=== PATIENT | female | born 1950 | race Caucasian/White ===

== ENCOUNTER 2017-02-04 22:51 | Inpatient (IN) | payer OTHER ==
[~2017-02-04] VITALS: Ht 167.6 cm; Wt 92.0 kg
[~2017-02-04 22:51] MED LIST: ACET-1311 PO; ALBU1AER9 INH; AMIT25TA9 PO; ASPCH81X PO; ATEN-173 PO; BISA10SU3 PR; BUDE0.5S INH; BUSP5TAB59 PO; CLOT10TR2 MT; CLR10 PO; DOCU100C31 PO; ERGO1CAP35 PO; FLUT0.0529 NAE; GABA-113 PO; LACT10SO30 PO; LEVO50TA PO; LORA-741 PO; NTRGSL/4 UT; PANT40TA PO; PARO1TAB29 PO; POTA-74 PO; SALM50AE2 INH; SENN1TAB66 PO; SPRIN/30 INH; SUCR5SUS PO
[2017-02-04] MEDS ORDERED: ALBUT/IPRATROP 3MG/0.5MG NEB 3 ML VIAL INH STA (23:11)
[2017-02-04 23:28] LABS: HEMATOCRIT 40.7 % (37-47); MEAN CELL VOLUME 92.7 fL (80-100); MEAN CORPUSCULAR HGB CONC 33.4 g/dl (32-36); MEAN PLATELET VOLUME 10.1 fL (7.4-10.4); PLATELET COUNT 409 K/uL (130-400); RED BLOOD COUNT 4.39 M/uL (4.2-5.4); WHITE BLOOD COUNT 24.29 K/uL (4.8-10.8)
[2017-02-04 23:40] LABS: INR 1.2 (0.9-1.1); PARTIAL THROMBOPLASTIN RATIO 1.1; PROTHROMBIN TIME (PATIENT) 12.4 SECONDS (9.0-12.0)
[2017-02-04] MEDS ORDERED: PIPERACILLIN/TAZOBACTAM 4.5 GM/100ML D5W IV STA (23:46)
[2017-02-05] VITALS (10 sets, daily range): BP systolic 94–107; BP diastolic 63–70; PULSE 83–95; TEMP 36.5–36.8; O2SAT 94–96; BMI 33.0
[2017-02-05 00:01] LABS: ALT/SGPT 47 U/L (12-78); AST/SGOT 30 U/L (15-37); BLOOD UREA NITROGEN 11 mg/dl (7-18); BUN/CREATININE RATIO 8.1 (10-20); CALCIUM 8.6 mg/dl (8.5-10.1); CARBON DIOXIDE 22 mmol/L (21-32); CHLORIDE 104 mmol/L (98-107); GLUCOSE 141 mg/dl (70-99); POTASSIUM 4.6 mmol/L (3.5-5.1); SODIUM 138 mmol/L (136-145)
[2017-02-05 00:02] LABS: BASO % 0.1 %; BASO ABS # 0.03 K/uL (0-0.2); COMPLETE YES; EOS % 0.7 %; IG% 0.5 %; LYMPH % 12.4 %; LYMPH ABS # 3.02 K/uL (1.2-3.4); MONO % 13.8 %; NEUT % 72.5 %
[2017-02-05 00:04] LABS: ALB/GLOB RATIO 0.8 (0.9-2); ALKALINE PHOSPHATASE 133 U/L (45-117)
[2017-02-05] MEDS ORDERED: SODIUM CHLORIDE 0.9% 1000ML 1,000 ML IV SCH (01:00)
--- NOTE | 2017-02-05 01:20 | EMERGENCY ROOM VISIT NOTE ---
History Report prepared by Jalen: Nolan Jo Under the Supervision of: Dr. Juan Jose Mendoza M.D. First contact with patient: 23:03 Chief Complaint: SHORTNESS OF BREATH Stated Complaint: SOB, FEVER, COUGH History of Present Illness The patient is a 66 year old female who presents to the Emergency Room with complaints of constant shortness of breath for the past several days. The patient complains of coughs, wheezing, nausea, fevers, sorethroat, and a clogged nose. She reports that the highest fever she had was 102.8 degrees. The patient notes that she has a history of COPD, and she has been using her nebulizer. She states that she uses 2L of oxygen at bed time. The patient denies vomiting, diarrhea, and chest pain. She notes she was given a nebulizer treatment and IV steroids in the ambulance. Source of History: patient Onset: prior to arrival Position: other (global) Quality: other (shortness of breath) Timing: constant Associated Symptoms: + fevers, + sorethroat, + cough, + nausea, No chest pain, No vomiting, No diarrhea Note: Associated Symptoms: wheezing and a clogged nose Review of Systems See HPI for pertinent positives & negatives. A total of 10 systems reviewed and were otherwise negative. Past Medical & Surgical Medical Problems: (1) Anxiety (2) COPD (chronic obstructive pulmonary disease) (3) Depression (4) Migraine Surgical Problems: (1) H/O tubal ligation Social History Smoking Status: Current Every Day Smoker Marital Status: Housing Status: other Occupation Status: retired Current/Historical Medications Scheduled Albuterol (Proair Hfa), 2 PUFFS INH QID Amitriptyline Hcl (Elavil), 50 MG PO HS Aspirin (Aspirin Chewable), 81 MG PEG DAILY Atenolol (Tenormin), 25 MG PO BID Budesonide Soln (Pulmicort Respules 0.5MG/2ML), 2 ML INH Q12HR Buspirone Hcl (Buspirone Hcl), 30 MG PO BID Docusate Sodium (Docusate Sodium), 100 MG PO BID Ergocalciferol (Vitamin D Cap), 50,000 INTER.UNIT PO WK Fluticasone Propionate (Nasal) (Flonase), 1 SPRAY MARIAM BID Gabapentin (Neurontin), 300 MG PO TID Levothyroxine Sodium (Synthroid), 50 MCG PO DAILY Loratadine (Claritin), 10 MG PO DAILY Pantoprazole (Protonix), 40 MG PO QAM Paroxetine (Paxil), 40 MG PO DAILY Potassium Chloride (Potassium Chloride Er), 10 MEQ PO BID Salmeterol Xinafoate Inh (Serevent Diskus Inh), 1 PUFF INH Q12 Sucralfate (Sucralfate), 1 GM PO Q6H Tiotropium [place] (Spiriva Hand[place]er), 1 CAP INH DAILY Scheduled PRN Acetaminophen (Tylenol), 650 MG PO Q4H PRN for Mild Pain Bisacodyl (Dulcolax), 1 SUPP WI UD PRN for No Bowel Movement/Constipation Clotrimazole (Mycelex), 10 MG MT 5XD PRN Lactulose (Encephalopathy) (Lactulose), 30 ML PO Q24H UD PRN for No Bowel Movement/Constipation Lorazepam (Ativan), 0.25 MG PO Q6H PRN for Anxiety or Tremors Nitroglycerin (Nitrostat), 0.4 MG UT UD PRN for Chest Pain Sennosides-Docusate Sodium (Senna/Docusate Sodium), 1 TABLET PO Q24H PRN for Constipation Allergies Coded Allergies: Quinolones (Verified Allergy, Intermediate, LEVAQUIN, 07/09/11) LEVAQUIN ALLERGY Codeine (Verified Allergy, Unknown, UNKNOWN, 05/30/12) PER H&P, PATIENT IS ON VICODIN PRN AT HOME. Physical Exam Vital Signs Date Time Temp Pulse Resp B/P (MAP) Pulse Ox O2 Delivery O2 Flow Rate FiO2 02/05/17 00:49 111 16 97/60 94 Nasal Cannula 2.0 02/05/17 00:09 113 24 98/74 96 Nasal Cannula 2.0 02/05/17 00:00 114 02/04/17 23:51 96 Nasal Cannula 02/04/17 23:05 Nasal Cannula 2.0 02/04/17 23:05 36.9 123 28 111/73 95 Nasal Cannula 2.0 Physical Exam Constitutional: Vital signs reviewed. Eyes: Pupils are equal round reactive to light. Conjunctiva are noninjected. ENT: Pharynx is clear without erythema or exudate. No thrush. Mucous membranes are moist. Neck supple without meningeal signs. Respiratory: Breath sounds are equal bilaterally. Diffuse bilateral expiratory wheezing. Cardiovascular: Tachycardic rate of 112 and regular rhythm. No rubs or gallops. GI: Soft, nondistended and nontender. Bowel sounds are present. Musculoskeletal: No peripheral edema. No lower extremity tenderness. Integumentary: No cyanosis. Neurological: The patient is awake and alert. No focal deficits. Psychiatric: Normal affect. Medical Decision & Procedures ER Provider Diagnostic Interpretation: X-ray results as stated below per interpretation by me: Chest X-ray: showed left retrocardiac infiltrate, increased marking at the right face Laboratory Results 02/04/17 23:00 Red Blood Count 4.39, Mean Corpuscular Volume 92.7, Mean Corpuscular Hemoglobin 31.0, Mean Corpuscular Hemoglobin Concent 33.4, Mean Platelet Volume 10.1, Neutrophils (%) (Auto) 72.5, Lymphocytes (%) (Auto) 12.4, Monocytes (%) (Auto) 13.8, Eosinophils (%) (Auto) 0.7, Basophils (%) (Auto) 0.1, Neutrophils # (Auto ) 17.60, Lymphocytes # (Auto) 3.02, Monocytes # (Auto) 3.34, Eosinophils # (Auto ) 0.18, Basophils # (Auto) 0.03 02/04/17 23:00 Test 02/04/17 23:00 02/05/17 00:48 White Blood Count 24.29 K/uL (4.8-10.8) Red Blood Count 4.39 M/uL (4.2-5.4) Hemoglobin 13.6 g/dL (12.0-16.0) Hematocrit 40.7 % (37-47) Mean Corpuscular Volume 92.7 fL (80-100) Mean Corpuscular Hemoglobin 31.0 pg (25-34) Mean Corpuscular Hemoglobin Concent 33.4 g/dl (32-36) Platelet Count 409 K/uL (130-400) Mean Platelet Volume 10.1 fL (7.4-10.4) Neutrophils (%) (Auto) 72.5 % Lymphocytes (%) (Auto) 12.4 % Monocytes (%) (Auto) 13.8 % Eosinophils (%) (Auto) 0.7 % Basophils (%) (Auto) 0.1 % Neutrophils # (Auto) 17.60 K/uL (1.4-6.5) Lymphocytes # (Auto) 3.02 K/uL (1.2-3.4) Monocytes # (Auto) 3.34 K/uL (0.11-0.59) Eosinophils # (Auto) 0.18 K/uL (0-0.5) Basophils # (Auto) 0.03 K/uL (0-0.2) RDW Standard Deviation 47.7 fL (36.4-46.3) RDW Coefficient of Variation 14.0 % (11.5-14.5) Immature Granulocyte % (Auto) 0.5 % Immature Granulocyte # (Auto) 0.12 K/uL (0.00-0.02) Red Blood Cell Morphology Unremarkable Prothrombin Time 12.4 SECONDS (9.0-12.0) Prothromb Time International Ratio 1.2 (0.9-1.1) Activated Partial Thromboplast Time 29.3 SECONDS (21.0-31.0) Partial Thromboplastin Ratio 1.1 Anion Gap 12.0 mmol/L (3-11) Est Creatinine Clear Calc Drug Dose 46.0 ml/min Estimated GFR () 45.6 Estimated GFR (Non- 39.3 BUN/Creatinine Ratio 8.1 (10-20) Calcium Level 8.6 mg/dl (8.5-10.1) Magnesium Level 2.0 mg/dl (1.8-2.4) Total Bilirubin 1.1 mg/dl (0.2-1) Aspartate Amino Transf (AST/SGOT) 30 U/L (15-37) Alanine Aminotransferase (ALT/SGPT) 47 U/L (12-78) Alkaline Phosphatase 133 U/L (45-117) Troponin I < 0.015 ng/ml (0-0.045) Total Protein 7.5 gm/dl (6.4-8.2) Albumin 3.4 gm/dl (3.4-5.0) Globulin 4.1 gm/dl (2.5-4.0) Albumin/Globulin Ratio 0.8 (0.9-2) Laboratory results as reviewed by me. Medications Administered Medications (Trade) Dose Ordered Sig/Magdalene Route Start Time Stop Time Status Last Admin Dose Admin Albuterol/ Ipratropium (Duoneb) 3 ml NOW STAT INH 02/04/17 23:11 02/04/17 23:12 DC 02/04/17 23:19 3 ML Piperacillin Sod/ Tazobactam Sod (Zosyn Iv) 4.5 gm NOW STAT IV 02/04/17 23:46 02/04/17 23:47 DC 02/05/17 00:06 4.5 GM ECG Indication: SOB/dyspnea Rate (beats per minute): 111 Rhythm: other (narrow complex) Findings: no ectopy, other (Limited interpretation due to artifact) ED Course 230: The patient was evaluated in room A03. A complete history and physical exam was performed. 2310: Ordered Duoneb 3ml INH 2342: I reevaluated the patient, and discussed her test results. Her wheezing has improved. 2345: Ordered Zosyn Iv 4.5gm IV 0019: I discussed the patient's case with Dr. Reid, [facility]ist. The patient will be evaluated for further treatment. Medical Decision This is a 66-year-old female who presents with shortness of breath, fever and cough. Differential diagnoses include sepsis, pneumonia, bronchitis, COPD exacerbation, pleural effusion. I did perform a limited focused review of portions of the patient's old chart on the electronic medical record. The patient has had no recent pertinent visits to this hospital. Medication Reconciliation: I attest that I have personally reviewed the patient' s current medication list. Blood Pressure Screening: Patient was found to have normal blood pressure on screening and does not require follow-up. I did evaluate the patient as noted above. Blood cultures were obtained. IV access was established. The patient was placed on a continuous hospital monitor. I did order and personally review the patient's 12-lead EKG and chest x-ray as described above. Per my interpretation she appears to have a left retrocardiac infiltrate. I did order and review the patient's blood work as noted in the electronic medical record. Her white blood cell count was over 24, 000. I did treat her with a DuoNeb. She was also given Zosyn IV. I did reassess the patient. She is feeling better and her wheezing is improved. I did recommend hospitalization for further care and evaluation. I did discuss the case with the hospitalist and case hardener. Consults Time Called: [phone] Consulting Physician: Isauro Marcus Hospitalist Returned Call: [phone] I discussed the patient's case with Isauro Marcus Hospitalist. The patient will be evaluated for further treatment. Impression Primary Impression: Left lower lobe pneumonia Additional Impressions: COPD exacerbation Leukocytosis Scribe Attestation The scribe's documentation has been prepared under my direct and personally reviewed by me in its entirety. I confirm that the note above accurately reflects all work, treatment, procedures, and medical decision making performed by me. Departure Information Dispostion Being Evaluated By Hospitalist Referrals Magalie Vinson M.D. (MEDICAL) (PCP) Patient Instructions My [facility] Problem Qualifiers Primary Impression: Left lower lobe pneumonia Pneumonia type: due to unspecified organism Qualified Codes: J18.1 - Lobar pneumonia, unspecified organism Additional Impressions: Leukocytosis Leukocytosis type: unspecified Qualified Codes: D72.829 - Elevated white blood cell count, unspecified
[2017-02-05 01:53] LABS: ALLEN TEST POS (POS); ARTERIAL BLD GAS O2 SATURATION 93.8 % (90-95); ARTERIAL BLOOD GAS BASE EXCESS -2.6 mEq/L (-9-1.8); ARTERIAL BLOOD GAS HCO3 21 mmol/L (19-24); ARTERIAL BLOOD GAS PO2 70 mm/Hg (80-95); ARTERIAL BLOOD GAS pH 7.43 (7.35-7.45); O2 ADMINISTRATION 2L
[2017-02-05] MEDS ORDERED: LISI-461 PO (01:53)
[2017-02-05] MEDS ORDERED: TRAM-10 PO (01:55)
[2017-02-05] MEDS ORDERED: ASTN NAE (01:58)
[2017-02-05] MEDS ORDERED: ROPI0.25 PO (01:59)
[2017-02-05] MEDS ORDERED: VAREPAK PO (02:01)
[2017-02-05] MEDS ORDERED: MAGIC1 PO (02:02)
[2017-02-05] MEDS ORDERED: AMOX875T PO (02:04)
[2017-02-05] MEDS ORDERED: CHOL1CAP95 PO (02:07)
[2017-02-05] MEDS ORDERED: FURO-85 PO (02:09)
[2017-02-05] MEDS ORDERED: UMEC1AER INH (02:12)
[2017-02-05] MEDS ORDERED: VNTHFA/IN INH (02:13)
[2017-02-05] MEDS ORDERED: PRED10TA PO (02:15)
[2017-02-05] MEDS ORDERED: FLVHFA44 INH (02:19)
[2017-02-05] MEDS ORDERED: GUAI1TAB PO (02:22)
[2017-02-05] MEDS ORDERED: BUSP30TA2 PO (02:23)
[2017-02-05] MEDS ORDERED: LEVO-371 PO (02:25)
[2017-02-05] MEDS ORDERED: LEVO75TA5 PO (02:26)
[2017-02-05] MEDS ORDERED: ALBINS/ INH (02:29)
[2017-02-05] MEDS ORDERED: DIPH1TAB PO (02:30)
[2017-02-05] MEDS ORDERED: ONDANSETRON INJ 2 MG/ML 2 ML VIAL IV PRN (03:15)
[2017-02-05] MEDS ORDERED: LEVALBUTEROL/IPRATROPIUM NEB INH PRN (03:15)
[2017-02-05] MEDS ORDERED: DOCUSATE SODIUM/SENNA 50/8.6MG TAB PO PRN (03:15)
[2017-02-05] MEDS ORDERED: NITROGLYCERIN 0.4 MG SL PER TAB CHARGE UT PRN (03:15)
[2017-02-05] MEDS ORDERED: DOXYCYCLINE IV 100 MG in DEXTROSE 5% 100ML 100 ML IV STA (03:39)
[2017-02-05] MEDS ORDERED: LEVALBUTEROL 1.25MG/0.5ML NEB INH PRN (03:45)
[2017-02-05] MEDS ORDERED: IPRATROPIUM BROMIDE NEB SOLN 0.02% 2.5 ML VIAL INH PRN (03:45)
[2017-02-05] MEDS ORDERED: INSULIN GLARGINE SOLOSTAR 100 UNITS/ML 3 ML PEN SC STA (03:56)
[2017-02-05] MEDS ORDERED: METHYLPREDNISOLONE IV 40 MG in SYRINGE 0 ML IV STA (03:57)
[2017-02-05] MEDS ORDERED: SODIUM CHLORIDE 0.9% 1000ML 1,000 ML IV ONE (04:00)
[2017-02-05] MEDS ORDERED: LANTUS PER UNIT CHARGE SQ STA (04:12)
--- NOTE | 2017-02-05 06:05 | HISTORY & PHYSICAL EXAMINATION ---
DATE OF ADMISSION: 02/05/2017 PRIMARY CARE PHYSICIAN: Dr. Vinson. CHIEF COMPLAINT: Shortness of breath, cough. HISTORY OF PRESENT ILLNESS: Hx obtained from px and records. Medical history is significant for chronic respiratory failure secondary to COPD on home O2, tobacco abuse, chronic systolic/diastolic heart failure (EF of 55% TTE 2016). hypothyroidism, hypertension. Recent confinement 2013 for respiratory failure secondary to COPD exacerbation. Px subsequently intubated. A 2D echo at that time showed EF of 15-20%. Px seen by Cardiology. Takotsubo vs ACS. No cardiac catheterization done at that time. A few weeks ago, the patient noted cough symptoms, shortness of breath resolved with intake of Augmentin, prednisone home rescue kit. A few days ago, the patient noted cough symptoms, nasal congestion initially clear later white, later yellow-green. Fever 102 at home. No chest pain, increasing shortness of breath. Denies aspiration. Denies weight gain. At the Emergency Room, the patient received Zosyn and breathing treatment. MEDICAL HISTORY: As above. SURGERIES: She has had sinus surgery. tubal ligation, nasal septum surgery. HOME MEDICATIONS: Include vitamin D, Mycelex Troches, Magic Swizzle, vitamin D, Flonase, Lasix, Flovent, Neurontin, lactulose, levothyroxine, Ativan, Zestril, Claritin, Nitrostat, potassium chloride, Protonix, Paxil, Requip, Senokot S, sucralfate, Spiriva, tramadol, Ellipta, Chantix. ALLERGIES: TO CODEINE, QUINOLONE. FAMILY HISTORY: Heart disease. PERSONAL AND SOCIAL HISTORY. No chronic intake of alcoholic beverages; down to 7 cigarettes in the last 2 weeks. On disability. REVIEW OF SYSTEMS: As per HPI, all other ROS negative. PHYSICAL EXAMINATION: VITAL SIGNS: Blood pressure is 109/60, pulse rate 105, RR 24, temperature 36.9, sats 95 on 2 liters. GENERAL: Noted to be slightly anxious, tremulous, some respiratory distress. SKIN: Normal color. HEENT: [place] palpebral conjunctivae. Dry mucosa. nasal cannula noted NECK: No JVD. supple CHEST: Decreased breath sounds. HEART: Tachycardic. ABDOMEN: Soft. NT EXTREMITIES: No edema. no tenderness NEUROLOGIC: No gross focality except for rest tremors. LABORATORY DATA: Hemoglobin 13.6, hematocrit 40, white cell count 20, platelets are 409. Sodium 138, potassium 4.6, chloride 104, creatinine 1.4, glucose 141. ABG pH 7.42, pCO2 32, pO2 70 on 2 liters. IMAGING DATA: Chest x-ray as per my interpretation, atelectasis, COPD. EKG as per my interpretation rate 115, sinus tachycardia, artifact, ST depression on the lateral leads. ASSESSMENT: 1. Acute on chronic hypoxemic resp failure secondary to chronic obstructive pulmonary disease exacerbation secondary to atypical pneumonia/complicated bronchitis. 2. Sepsis secondary to above. 3. Acute renal failure secondary to illness. 4. Chronic diastolic heart failure. The patient is on the dry side. 5. Ongoing tobacco abuse, doing well on Chantix. 6. hyperglycemia possibly from recent home steroid course ro DM PLAN: GMF supplemental O2 Cultures, Doxycycline nebs, steroid course May need Pulmo opinion if without improvement with initial intervention. baseline UA, monitor creatinine response to IVF Hold home ACEI until creatinine at baseline. Check hemoglobin A1c. DVT prophylaxis, Heparin subQ. Full code. MTDD
[2017-02-05] MEDS ORDERED: GLUCAGON FOR INJ 1 MG VIAL SQ PRN (06:15)
[2017-02-05] MEDS ORDERED: DEXTROSE 50% 50 ML SYR IV PRN (06:15)
[2017-02-05] MEDS ORDERED: GLUCOSE 40% GEL 15 GM TUBE PO PRN (06:15)
[2017-02-05] MEDS ORDERED: GLUCOSE 10 TABS/TUBE PO PRN (06:15)
[2017-02-05] MEDS ORDERED: INSULIN ASPART 100 UNITS/ML 3 ML PEN SC ONE (06:15)
--- NOTE | 2017-02-05 06:31 | DIAGNOSTIC IMAGING REPORT ---
CHEST ONE VIEW PORTABLE CLINICAL HISTORY: Sepsis COMPARISON STUDY: 10/03/2013 FINDINGS: Tracheostomy tube and right-sided PICC catheter have been removed. There is pulmonary emphysema. There is no focal pulmonary consolidation. There are no pleural effusions. There is no failure. There are scattered chronic interstitial densities.[ IMPRESSION: Emphysema. No acute findings. Electronically signed by: Dominick Barrera M.D. 02/05/2017 6:29 AM Dictated Date/Time: 02/05/2017 6:29 AM
[2017-02-05] MEDS: LEVOTHYROXINE 75 MCG TAB PO SCH (06:34)
[2017-02-05] MEDS: SUCRALFATE 1 GM/10 ML UDC PO SCH ×3 (06:34→18:09)
[2017-02-05] MEDS: HEPARIN SOD 5000 UNIT/0.5 ML CARP SQ SCH ×3 (06:38→21:28)
[2017-02-05 06:59] LABS: BASO % 0.1 %; BASO ABS # 0.01 K/uL (0-0.2); COMPLETE YES; EOS % 0.1 %; HEMATOCRIT 37.7 % (37-47); IG% 0.3 %; LYMPH % 6.9 %; LYMPH ABS # 1.22 K/uL (1.2-3.4); MEAN CELL VOLUME 91.1 fL (80-100); MEAN CORPUSCULAR HGB CONC 32.9 g/dl (32-36); MEAN PLATELET VOLUME 9.1 fL (7.4-10.4); MONO % 3.4 %; NEUT % 89.2 %; PLATELET COUNT 357 K/uL (130-400); RED BLOOD COUNT 4.14 M/uL (4.2-5.4); WHITE BLOOD COUNT 17.81 K/uL (4.8-10.8)
[2017-02-05] MEDS: LEVALBUTEROL 1.25MG/0.5ML NEB INH SCH ×3 (07:11→19:01)
[2017-02-05] MEDS: IPRATROPIUM BROMIDE NEB SOLN 0.02% 2.5 ML VIAL INH SCH ×3 (07:11→19:01)
[2017-02-05 07:38] LABS: BUN/CREATININE RATIO 10.3 (10-20); CALCIUM 8.7 mg/dl (8.5-10.1); CREATININE 1.5 mg/dl (0.60-1.20); POTASSIUM 4.2 mmol/L (3.5-5.1)
[2017-02-05] MEDS: XYZAL~ORDER AWAITING ACTION SCH ×3 (07:39→23:29)
[2017-02-05] MEDS ORDERED: PNEUMOCOCCAL POLYSACCHARIDES 25 MCG/0.5 ML VIAL/SYR IM. ONE (08:00)
[2017-02-05] MEDS ORDERED: PNEUMOCOCCAL ADMINISTRATION CHARGE ONE (08:00)
[2017-02-05 08:39] LABS: ESTIMATED AVERAGE GLUCOSE 163 mg/dl; HA1C FLAG Normal (Normal)
[2017-02-05] MEDS ORDERED: LEVALBUTEROL/IPRATROPIUM NEB INH SCH (09:00)
[2017-02-05] MEDS ORDERED: ENOXAPARIN 40 MG/0.4 ML SYR SQ SCH (09:00)
[2017-02-05] MEDS: VARENICLINE (CHANTIX) 1 MG TAB PO SCH ×2 (09:02→21:32)
[2017-02-05] MEDS: PANTOprazole SOD 40 MG TAB PO SCH (09:05)
[2017-02-05] MEDS: ASPIRIN 81 MG ECTAB PO SCH (09:06)
[2017-02-05] MEDS: PAROXETINE 20 MG TAB PO SCH (09:06)
[2017-02-05] MEDS: BusPIRone 15 MG TAB PO SCH ×2 (09:06→21:31)
[2017-02-05] MEDS: GABAPENTIN 300 MG CAP PO SCH ×3 (09:07→21:32)
[2017-02-05] MEDS: INSULIN ASPART 100 UNITS/ML 3 ML PEN SC SCH ×3 (11:00→21:28)
[2017-02-05 11:28] LABS: URINE APPEARANCE CLEAR (CLEAR); URINE BILIRUBIN NEG (NEG); URINE COLOR DK YELLOW; URINE NITRITE NEG (NEG); URINE PH 5.5 (4.5-7.5); UROBILINOGEN NEG (NEG); ZZUR CULT IF INDIC CLEAN CATCH NO
[2017-02-05 11:30] LABS: MANUAL MICROSCOPIC REQUIRED? NO; REVIEW REQ? NO
--- NOTE | 2017-02-05 11:51 | Progress Note ---
Medicine Progress Note Date & Time of Visit: Feb 05, 2017 at 11:35. Subjective 66 yoF smoker with COPD presented with worsening cough, SOB and sputum production with color change in the last 2-3 days. Found to have an atypical pneumonia. Improved since started on treatment yesterday. Tolerating PO, breathing treatments causing coughing. Still on oxygen when requires oxygen only at night typically. She has recently restarted Chantix and is doing well on this but says it causes nausea. She reports chronic thrush and dry mouth, and states that she has had at least 3 thrush episodes in the past month. She typically uses Clotrimazole trouches. She does wear dentures. Reports some persistent chills, afebrile overnight. Denies vomiting, chest pain or other symptoms. Objective Last 8 Hrs Date Time Temp Pulse Resp B/P (MAP) Pulse Ox O2 Delivery O2 Flow Rate FiO2 02/05/17 09:03 85 16 106/65 (79) 02/05/17 08:53 96 Nasal Cannula 02/05/17 07:24 36.5 84 16 94/63 (73) 96 Room Air 02/05/17 07:10 83 16 Nasal Cannula 96.0 02/05/17 03:58 36.8 95 25 107/66 95 Nasal Cannula 2.0 Physical Exam: GEN: WNWD, in no acute distress, alert and appropriate HEENT: NC/AT, pupils are equal and round bilaterally, normal sclerae, mucous membranes are dry, some whitish material noted on tongue, dentures in place, pharynx is otherwise not acute. CARDIO: reg rate, S1/2 heard without m/g/r, no LE swelling or edema LUNGS: CTA bilaterally, no crackles, rales or wheezes, good diaphragmatic excursion ABD: soft, non-tender, non-distended, no rebound or guarding, +BS EXTREMITY: RP and DP palpable 2+ bilat, extremities are warm and well-perfused NEURO: CN 2-12 grossly intact, no gross focal deficits. MUSC: ambulatory SKIN: warm and dry Laboratory Results: 02/05/17 06:26 Red Blood Count 4.14, Mean Corpuscular Volume 91.1, Mean Corpuscular Hemoglobin 30.0, Mean Corpuscular Hemoglobin Concent 32.9, Mean Platelet Volume 9.1, Neutrophils (%) (Auto) 89.2, Lymphocytes (%) (Auto) 6.9, Monocytes (%) (Auto) 3.4, Eosinophils (%) (Auto) 0.1, Basophils (%) (Auto) 0.1, Neutrophils # (Auto) 15.91, Lymphocytes # (Auto) 1.22, Monocytes # (Auto) 0.60, Eosinophils # (Auto) 0.01, Basophils # (Auto) 0.01 02/05/17 06:26 Test 02/04/17 23:00 02/04/17 23:45 02/05/17 01:40 02/05/17 06:26 Red Blood Cell Morphology Unremarkable Prothrombin Time 12.4 SECONDS (9.0-12.0) Prothromb Time International Ratio 1.2 (0.9-1.1) Activated Partial Thromboplast Time 29.3 SECONDS (21.0-31.0) Partial Thromboplastin Ratio 1.1 Magnesium Level 2.0 mg/dl (1.8-2.4) Total Bilirubin 1.1 mg/dl (0.2-1) Aspartate Amino Transf (AST/SGOT) 30 U/L (15-37) Alanine Aminotransferase (ALT/SGPT) 47 U/L (12-78) Alkaline Phosphatase 133 U/L (45-117) Troponin I < 0.015 ng/ml (0-0.045) Total Protein 7.5 gm/dl (6.4-8.2) Albumin 3.4 gm/dl (3.4-5.0) Globulin 4.1 gm/dl (2.5-4.0) Albumin/Globulin Ratio 0.8 (0.9-2) Thyroid Stimulating Hormone (TSH) 4.190 uIu/ml (0.300-4.500) Bedside Lactic Acid Venous 2.66 mmol/L (0.90-1.70) Arterial Blood pH 7.43 (7.35-7.45) Arterial Blood Partial Pressure CO2 32 mmHg (35-46) Arterial Blood Partial Pressure O2 70 mm/Hg (80-95) Arterial Blood HCO3 21 mmol/L (19-24) Arterial Blood Oxygen Saturation 93.8 % (90-95) Arterial Blood Base Excess -2.6 mEq/L (-9-1.8) Arterial Blood Gas Delivery 2L Franky Test POS (POS) Lactic Acid Level 1.8 mmol/L (0.4-2.0) White Blood Count 17.81 K/uL (4.8-10.8) Red Blood Count 4.14 M/uL (4.2-5.4) Hemoglobin 12.4 g/dL (12.0-16.0) Hematocrit 37.7 % (37-47) Mean Corpuscular Volume 91.1 fL (80-100) Mean Corpuscular Hemoglobin 30.0 pg (25-34) Mean Corpuscular Hemoglobin Concent 32.9 g/dl (32-36) Platelet Count 357 K/uL (130-400) Mean Platelet Volume 9.1 fL (7.4-10.4) Neutrophils (%) (Auto) 89.2 % Lymphocytes (%) (Auto) 6.9 % Monocytes (%) (Auto) 3.4 % Eosinophils (%) (Auto) 0.1 % Basophils (%) (Auto) 0.1 % Neutrophils # (Auto) 15.91 K/uL (1.4-6.5) Lymphocytes # (Auto) 1.22 K/uL (1.2-3.4) Monocytes # (Auto) 0.60 K/uL (0.11-0.59) Eosinophils # (Auto) 0.01 K/uL (0-0.5) Basophils # (Auto) 0.01 K/uL (0-0.2) RDW Standard Deviation 46.4 fL (36.4-46.3) RDW Coefficient of Variation 13.9 % (11.5-14.5) Immature Granulocyte % (Auto) 0.3 % Immature Granulocyte # (Auto) 0.06 K/uL (0.00-0.02) Anion Gap 10.0 mmol/L (3-11) Est Creatinine Clear Calc Drug Dose 42.9 ml/min Estimated GFR () 41.9 Estimated GFR (Non- 36.2 BUN/Creatinine Ratio 10.3 (10-20) Estimated Average Glucose 163 mg/dl Hemoglobin A1c 7.3 % (4.5-5.6) Calcium Level 8.7 mg/dl (8.5-10.1) Hepatitis C Antibody Screen NEG (NEG) Test 02/05/17 11:04 02/05/17 11:05 Bedside Glucose 175 mg/dl (70-90) Urine Color DK YELLOW Urine Appearance CLEAR (CLEAR) Urine pH 5.5 (4.5-7.5) Urine Specific [place] 1.020 (1.000-1.030) Urine Protein NEG (NEG) Urine Glucose (UA) NEG (NEG) Urine Ketones TRACE (NEG) Urine Occult Blood NEG (NEG) Urine Nitrite NEG (NEG) Urine Bilirubin NEG (NEG) Urine Urobilinogen NEG (NEG) Urine Leukocyte Esterase NEG (NEG) Date/Time Source Procedure Growth Status 02/04/17 23:35 Blood Blood Culture Pending Received 02/04/17 23:30 Throat Group A Streptococcus Screen - Final SPECIMEN NEGATIVE FOR GROUP A BETA ST... Resulted 02/04/17 23:30 Throat Group A Streptococcus Screen (NIECY) Pending Resulted 02/05/17 03:02 Sputum Expectorated Sputum Gram Stain Pending Pascual Batch 02/05/17 03:02 Sputum Expectorated Sputum Sputum Culture Pending Pascual Batch Last 24 Hours Test 02/04/17 23:00 02/04/17 23:45 02/05/17 01:40 02/05/17 05:09 White Blood Count 24.29 K/uL Red Blood Count 4.39 M/uL Hemoglobin 13.6 g/dL Hematocrit 40.7 % Mean Corpuscular Volume 92.7 fL Mean Corpuscular Hemoglobin 31.0 pg Mean Corpuscular Hemoglobin Concent 33.4 g/dl Platelet Count 409 K/uL Mean Platelet Volume 10.1 fL Neutrophils (%) (Auto) 72.5 % Lymphocytes (%) (Auto) 12.4 % Monocytes (%) (Auto) 13.8 % Eosinophils (%) (Auto) 0.7 % Basophils (%) (Auto) 0.1 % Neutrophils # (Auto) 17.60 K/uL Lymphocytes # (Auto) 3.02 K/uL Monocytes # (Auto) 3.34 K/uL Eosinophils # (Auto) 0.18 K/uL Basophils # (Auto) 0.03 K/uL RDW Standard Deviation 47.7 fL RDW Coefficient of Variation 14.0 % Immature Granulocyte % (Auto) 0.5 % Immature Granulocyte # (Auto) 0.12 K/uL Red Blood Cell Morphology Unremarkable Prothrombin Time 12.4 SECONDS Prothromb Time International Ratio 1.2 Activated Partial Thromboplast Time 29.3 SECONDS Partial Thromboplastin Ratio 1.1 Sodium Level 138 mmol/L Potassium Level 4.6 mmol/L Chloride Level 104 mmol/L Carbon Dioxide Level 22 mmol/L Anion Gap 12.0 mmol/L Blood Urea Nitrogen 11 mg/dl Creatinine 1.40 mg/dl Est Creatinine Clear Calc Drug Dose 46.0 ml/min Estimated GFR () 45.6 Estimated GFR (Non- 39.3 BUN/Creatinine Ratio 8.1 Random Glucose 141 mg/dl Calcium Level 8.6 mg/dl Magnesium Level 2.0 mg/dl Total Bilirubin 1.1 mg/dl Aspartate Amino Transf (AST/SGOT) 30 U/L Alanine Aminotransferase (ALT/SGPT) 47 U/L Alkaline Phosphatase 133 U/L Troponin I < 0.015 ng/ml Total Protein 7.5 gm/dl Albumin 3.4 gm/dl Globulin 4.1 gm/dl Albumin/Globulin Ratio 0.8 Thyroid Stimulating Hormone (TSH) 4.190 uIu/ml Bedside Lactic Acid Venous 2.66 mmol/L Arterial Blood pH 7.43 Arterial Blood Partial Pressure CO2 32 mmHg Arterial Blood Partial Pressure O2 70 mm/Hg Arterial Blood HCO3 21 mmol/L Arterial Blood Oxygen Saturation 93.8 % Arterial Blood Base Excess -2.6 mEq/L Arterial Blood Gas Delivery 2L Franky Test POS Lactic Acid Level 1.8 mmol/L Bedside Glucose 283 mg/dl Test 02/05/17 06:26 02/05/17 07:09 02/05/17 11:04 02/05/17 11:05 White Blood Count 17.81 K/uL Red Blood Count 4.14 M/uL Hemoglobin 12.4 g/dL Hematocrit 37.7 % Mean Corpuscular Volume 91.1 fL Mean Corpuscular Hemoglobin 30.0 pg Mean Corpuscular Hemoglobin Concent 32.9 g/dl Platelet Count 357 K/uL Mean Platelet Volume 9.1 fL Neutrophils (%) (Auto) 89.2 % Lymphocytes (%) (Auto) 6.9 % Monocytes (%) (Auto) 3.4 % Eosinophils (%) (Auto) 0.1 % Basophils (%) (Auto) 0.1 % Neutrophils # (Auto) 15.91 K/uL Lymphocytes # (Auto) 1.22 K/uL Monocytes # (Auto) 0.60 K/uL Eosinophils # (Auto) 0.01 K/uL Basophils # (Auto) 0.01 K/uL RDW Standard Deviation 46.4 fL RDW Coefficient of Variation 13.9 % Immature Granulocyte % (Auto) 0.3 % Immature Granulocyte # (Auto) 0.06 K/uL Sodium Level 137 mmol/L Potassium Level 4.2 mmol/L Chloride Level 105 mmol/L Carbon Dioxide Level 22 mmol/L Anion Gap 10.0 mmol/L Blood Urea Nitrogen 15 mg/dl Creatinine 1.50 mg/dl Est Creatinine Clear Calc Drug Dose 42.9 ml/min Estimated GFR () 41.9 Estimated GFR (Non- 36.2 BUN/Creatinine Ratio 10.3 Random Glucose 235 mg/dl Estimated Average Glucose 163 mg/dl Hemoglobin A1c 7.3 % Calcium Level 8.7 mg/dl Hepatitis C Antibody Screen NEG Bedside Glucose 250 mg/dl 175 mg/dl Urine Color DK YELLOW Urine Appearance CLEAR Urine pH 5.5 Urine Specific [place] 1.020 Urine Protein NEG Urine Glucose (UA) NEG Urine Ketones TRACE Urine Occult Blood NEG Urine Nitrite NEG Urine Bilirubin NEG Urine Urobilinogen NEG Urine Leukocyte Esterase NEG Date/Time Source Procedure Growth Status 02/04/17 23:35 Blood Blood Culture Pending Received 02/04/17 23:35 Blood Blood Culture Pending Received 02/04/17 23:30 Throat Group A Streptococcus Screen - Final SPECIMEN NEGATIVE FOR GROUP A BETA ST... Resulted 02/04/17 23:30 Throat Group A Streptococcus Screen (NIECY) Pending Resulted 02/05/17 03:02 Sputum Expectorated Sputum Gram Stain Pending Pascual Batch 02/05/17 03:02 Sputum Expectorated Sputum Sputum Culture Pending Pascual Batch Assessment & Plan 66 yoF smoker with COPD presented with worsening cough, SOB and sputum production with color change in the last 2-3 days. Found to have an atypical pneumonia. Improved since started on treatment yesterday. 1. Acute on chronic hypoxemic respiratory failure 2/2 COPD exacerbation with community-acquired pneumonia. Cont doxy, Duonebs, prednisone--no active wheezing today. Blood and sputum cultures are pending. 2. Thrush-will switch her to Diflucan course 3. CKD-stage III, creat at baseline 1.5. Will cont home ACEI now 4. Chronic systolic heart failure-compensated. Cont home atenolol. Restart Lis now. 5. Tobacco use-on Chantix for smoking cessation, declines nicotine replacement which I agree with. 6. Hyperglycemia 2/2 steroids-she doesn't have a formal diagnosis of DMII, however, A1C is 7.3 which indicates that hyperglycemia has been ongoing for a while. Poss steroid-induced, but will need to consider oral hypoglycemics on discharge, especially if discharged on steroids. In the hospital will cont ISS/ 7. Hypothyroidism-TSH stable, cont home Synthroid 8. Anxiety-cont Buspar 9. Leukocytosis 2/2 #1 and steroid use. DVT proph-Heparin SQ Full Code Dispo-likely to home in 1-2 days. DO [facility] Current Inpatient Medications: Current Inpatient Medications Medications (Trade) Dose Ordered Sig/Magdalene Route Start Time Stop Time Status Last Admin Dose Admin Doxycycline Hyclate 100 mg/ Dextrose 110 ml @ 50 mls/hr BID IV 02/05/17 21:00 02/12/17 20:59 Acetaminophen (Tylenol Tab) 650 mg Q4H PRN PO 02/05/17 03:15 03/07/17 03:14 Prednisone (PredniSONE TAB) 40 mg DAILY PO 02/06/17 09:00 02/11/17 08:59 Amitriptyline HCl (Elavil Tab) 50 mg HS PO 02/05/17 21:00 03/07/17 20:59 Aspirin (Ecotrin Tab) 81 mg DAILY PO 02/05/17 09:00 03/07/17 08:59 02/05/17 09:06 81 MG Atenolol (Tenormin Tab) 25 mg DAILY PO 02/05/17 09:00 03/07/17 08:59 02/05/17 09:04 25 MG Gabapentin (Neurontin Cap) 300 mg TID PO 02/05/17 09:00 03/07/17 08:59 02/05/17 09:07 300 MG Levothyroxine Sodium (Synthroid Tab) 75 mcg DAILYBB PO 02/05/17 06:30 03/07/17 06:29 02/05/17 06:34 75 MCG Nitroglycerin (Nitrostat Tab) 0.4 mg UD PRN UT 02/05/17 03:15 03/07/17 03:14 Pantoprazole Sodium (Protonix Tab) 40 mg QAM PO 02/05/17 09:00 03/07/17 08:59 02/05/17 09:05 40 MG Paroxetine HCl (pAXil TAB) 40 mg QAM PO 02/05/17 09:00 03/07/17 08:59 02/05/17 09:06 40 MG Ropinirole HCl (Requip Tab) 0.25 mg HS PO 02/05/17 21:00 03/07/17 20:59 Senna/Docusate Sodium (Senokot S Tab) 1 tab Q24H PRN PO 02/05/17 03:15 03/07/17 03:14 Sucralfate (Carafate Susp) 1 gm Q6H PO 02/05/17 06:00 03/07/17 05:59 02/05/17 11:31 1 GM Tramadol HCl (Ultram Tab) 50 mg Q8H PRN PO 02/05/17 03:15 03/07/17 03:14 Miscellaneous Information (Order Awaiting Action) 1 ea QS N/A 02/05/17 08:00 03/07/17 07:59 Buspirone HCl (BusPAR TAB) 30 mg BID PO 02/05/17 09:00 03/07/17 08:59 02/05/17 09:06 30 MG Miscellaneous Information (Order Awaiting Action) 1 ea QS N/A 02/05/17 08:00 03/07/17 07:59 Varenicline (Chantix) 1 mg BID PO 02/05/17 09:00 03/07/17 08:59 02/05/17 09:02 1 MG Ondansetron HCl (Zofran Inj) 4 mg Q6H PRN IV 02/05/17 03:15 03/07/17 03:14 Sodium Chloride 1,000 ml @ 75 mls/hr [id number] ONCE IV 02/05/17 04:00 02/05/17 17:19 02/05/17 04:34 75 MLS/HR Ipratropium [place] (Atrovent 0.02% 0.5MG/2.5ML Neb) 0.5 mg Q6R INH 02/05/17 09:00 03/07/17 08:59 02/05/17 07:11 0.5 MG Levalbuterol (Xopenex 1.25MG/ 0.5ML Neb) 1.25 mg Q6R INH 02/05/17 09:00 03/07/17 08:59 02/05/17 07:11 1.25 MG Ipratropium [place] (Atrovent 0.02% 0.5MG/2.5ML Neb) 0.5 mg Q4H PRN INH 02/05/17 03:45 03/07/17 03:44 Levalbuterol (Xopenex 1.25MG/ 0.5ML Neb) 1.25 mg Q4H PRN INH 02/05/17 03:45 03/07/17 03:44 Heparin Sodium (Porcine) (Heparin Sq 5000 Unit/0.5ml) 5,000 unit Q8 SQ 02/05/17 06:00 03/07/17 05:59 02/05/17 06:38 5,000 UNIT Insulin Aspart (novoLOG ASPART) SLIDING SCALE If C... ACHS SC 02/05/17 11:00 03/07/17 10:59 Glucose (Glucose 40% Gel) 15-30 GRAMS 15 GRAMS... UD PRN PO 02/05/17 06:15 03/07/17 06:14 Glucose (Glucose Chew Tab) 4-8 Tablets 4 Tabl... UD PRN PO 02/05/17 06:15 03/07/17 06:14 Dextrose (Dextrose 50% 50ML Syringe) 25-50ML OF 50% DW IV FOR... UD PRN IV 02/05/17 06:15 03/07/17 06:14 Glucagon (Glucagon Inj) 1 mg UD PRN SQ 02/05/17 06:15 03/07/17 06:14
[2017-02-05] MEDS ORDERED: PHARMACY GLYCEMIC MGMT CONSULT PRN (12:19)
[2017-02-05] MEDS ORDERED: INSULIN GLARGINE SOLOSTAR 100 UNITS/ML 3 ML PEN SC ONE ×2 (12:30→13:00)
--- NOTE | 2017-02-05 13:27 | Pharmacy Progress Note ---
Glycemic Control Intl Consult Date of Service Feb 05, 2017. Scope Glycemic Pharmacist consulted by Dr Banda on 02/05/2017 for glycemic control and to write orders per [facility] inpatient glycemic control protocol Objective Weight (Kilograms): 92.800 Accuchecks BSG (last 24hrs): Test 02/04/17 23:00 02/05/17 05:09 02/05/17 06:26 02/05/17 07:09 Random Glucose 141 mg/dl (70-99) 235 mg/dl (70-99) Bedside Glucose 283 mg/dl (70-90) 250 mg/dl (70-90) Test 02/05/17 11:04 Bedside Glucose 175 mg/dl (70-90) Laboratory Data (last 24hrs) Test 02/04/17 23:00 02/05/17 06:26 Anion Gap 12.0 mmol/L 10.0 mmol/L BUN/Creatinine Ratio 8.1 10.3 Blood Urea Nitrogen 11 mg/dl 15 mg/dl Creatinine 1.40 mg/dl 1.50 mg/dl Potassium Level 4.6 mmol/L 4.2 mmol/L Sodium Level 138 mmol/L 137 mmol/L White Blood Count 24.29 K/uL 17.81 K/uL Red Blood Count 4.39 M/uL 4.14 M/uL Hemoglobin 13.6 g/dL 12.4 g/dL Hematocrit 40.7 % 37.7 % Mean Corpuscular Volume 92.7 fL 91.1 fL Mean Corpuscular Hemoglobin 31.0 pg 30.0 pg Mean Corpuscular Hemoglobin Concent 33.4 g/dl 32.9 g/dl Platelet Count 409 K/uL 357 K/uL Mean Platelet Volume 10.1 fL 9.1 fL Neutrophils (%) (Auto) 72.5 % 89.2 % Lymphocytes (%) (Auto) 12.4 % 6.9 % Monocytes (%) (Auto) 13.8 % 3.4 % Eosinophils (%) (Auto) 0.7 % 0.1 % Basophils (%) (Auto) 0.1 % 0.1 % Neutrophils # (Auto) 17.60 K/uL 15.91 K/uL Lymphocytes # (Auto) 3.02 K/uL 1.22 K/uL Monocytes # (Auto) 3.34 K/uL 0.60 K/uL Eosinophils # (Auto) 0.18 K/uL 0.01 K/uL Basophils # (Auto) 0.03 K/uL 0.01 K/uL Hemoglobin A1c 7.3 % HbA1c Test 02/05/17 06:26 Hemoglobin A1c 7.3 % (4.5-5.6) H Recent Pertinent Medications Outpatient Anti-diabetic Regimen: * N/A The patient is currently receiving: * Basal insulin: Lantus 5 units x 1 Risk Factors for Insulin Resistance: * Steroids: Solu-Medrol 40 mg IV x 1 changed to prednisone 40 mg starting 2016 * Infection: COPD exacerbation on doxycycline * Diet: changed to type 2 diet after lunch Assessment & Plan ASSESSMENT: * ADA & AACE recommend a goal blood sugar range 140-180 mg/dl for the majority of critically ill & non-critically ill patients. However, more stringent targets may be selected in individual cases. Will utilize more stringent goal of 110-140mg/dl based on patient age & comorbidities. Additionally, tighter glycemic control is warranted to facilitate wound/infection healing. * Ms Patricio was admitted 02/05/17 for a COPD exacerbation. She has a PMH of COPD on home O2, CHF, and hypertension. She has an elevated A1C of 7.3% without an home diabetes medications. * This morning the patient's fasting blood sugar was 250 mg/dL and at lunch 175 mg/dL. She had received 5 units of lantus this morning and 3 of Novolog. As she was a new patient on Lantus, I started approximately 0.2 units/kg of Lantus ( gave additional 10 units today to equal 15 units) plus weight-based stress of 2 Novolog dosing. She is also on steroids which would necessitate more aggressive Novolog dosing. PLAN FOR INPATIENT GLYCEMIC CONTROL: * Basal insulin with LANTUS 15 units SQ daily * Correctional Insulin with NOVOLOG per scale ACHS * Goal Range: Low 110 mg/dL - High 140 mg/dL * Correction Factor: 25 mg/dL/unit * Nutritional / Prandial insulin per carb ratio of 1 unit per 8 grams CHO consumed * Please note that the plan above was derived based on current level of insulin resistance and hospital stress. These recommendations are appropriate for inpatient admission only. Plan of care upon discharge will need to be reassessed to avoid potential outpatient hypo/hyperglycemia. Thank you.
[2017-02-05] MEDS ORDERED: FLUCONAZOLE 100 MG TAB PO ONE (18:30)
[2017-02-05] MEDS ORDERED: AMITRIPTYLINE HCL 25 MG TAB PO SCH (21:00)
[2017-02-05] MEDS: DOXYCYCLINE IV 100 MG in DEXTROSE 5% 100ML 100 ML IV SCH (21:25)
[2017-02-05] MEDS: NYSTATIN SUSP 500,000 U/5 ML UDC PO SCH (21:31)
[2017-02-05] MEDS: AMITRIPTYLINE HCL 25 MG TAB PO SCH (21:32)
[2017-02-05] MEDS: ROPINIROLE HCL 0.25 MG TAB PO SCH (21:33)
[2017-02-06] VITALS (16 sets, daily range): BP systolic 93–143; BP diastolic 60–83; PULSE 70–107; TEMP 36–37.1; O2SAT 93–99
[2017-02-06] MEDS: SUCRALFATE 1 GM/10 ML UDC PO SCH ×4 (00:09→17:40)
[2017-02-06] MEDS ORDERED: COUGH DROP (SUGAR FREE) LOZ 24 LOZ/1 BOX PO PRN (06:00)
[2017-02-06] MEDS ORDERED: COUGH DROP (SUGAR FREE) LOZ 24 LOZ/1 BOX ONE (06:12)
[2017-02-06] MEDS: LEVOTHYROXINE 75 MCG TAB PO SCH (06:16)
[2017-02-06] MEDS: HEPARIN SOD 5000 UNIT/0.5 ML CARP SQ SCH ×3 (06:20→20:43)
[2017-02-06] MEDS: INSULIN ASPART 100 UNITS/ML 3 ML PEN SC SCH ×3 (06:30→17:40)
[2017-02-06 07:07] LABS: HEMATOCRIT 36.5 % (37-47); MEAN CELL VOLUME 91.9 fL (80-100); MEAN CORPUSCULAR HGB CONC 32.6 g/dl (32-36); MEAN PLATELET VOLUME 9.2 fL (7.4-10.4); PLATELET COUNT 406 K/uL (130-400); RED BLOOD COUNT 3.97 M/uL (4.2-5.4); WHITE BLOOD COUNT 21.21 K/uL (4.8-10.8)
[2017-02-06 07:35] LABS: BUN/CREATININE RATIO 22.3 (10-20); CALCIUM 8.6 mg/dl (8.5-10.1); CREATININE 1.3 mg/dl (0.60-1.20); POTASSIUM 4.1 mmol/L (3.5-5.1)
[2017-02-06] MEDS: XYZAL~ORDER AWAITING ACTION SCH ×2 (08:00→16:00)
[2017-02-06] MEDS ORDERED: LEVALBUTEROL/IPRATROPIUM NEB INH ONE (08:36)
[2017-02-06] MEDS: IPRATROPIUM BROMIDE NEB SOLN 0.02% 2.5 ML VIAL INH SCH ×3 (08:55→20:34)
[2017-02-06] MEDS: LEVALBUTEROL 1.25MG/0.5ML NEB INH SCH ×3 (08:55→20:34)
[2017-02-06] MEDS ORDERED: INSULIN GLARGINE SOLOSTAR 100 UNITS/ML 3 ML PEN SC SCH ×2 (09:00)
[2017-02-06] MEDS ORDERED: FLUCONAZOLE 100 MG TAB PO SCH (09:00)
[2017-02-06] MEDS ORDERED: LEVALBUTEROL/IPRATROPIUM NEB INH SCH (09:00)
[2017-02-06] MEDS ORDERED: LANTUS PER UNIT CHARGE SQ SCH (09:00)
[2017-02-06] MEDS: DOXYCYCLINE IV 100 MG in DEXTROSE 5% 100ML 100 ML IV SCH (09:01)
--- NOTE | 2017-02-06 09:04 | DIAGNOSTIC IMAGING REPORT ---
CHEST ONE VIEW PORTABLE CLINICAL HISTORY: increased SOB with inc work of breathing dyspnea COMPARISON STUDY: 02/04/2017 FINDINGS: The bones soft tissues and hemidiaphragms are normal. The cardiomediastinal silhouette is normal. The lungs are clear. The pulmonary vasculature is normal. IMPRESSION: Mild emphysematous change. No acute process. No change from the prior exam. Electronically signed by: Jack Ramirez M.D. 02/06/2017 9:03 AM Dictated Date/Time: 02/06/2017 9:02 AM
[2017-02-06] MEDS: BusPIRone 15 MG TAB PO SCH ×2 (09:24→20:40)
[2017-02-06] MEDS: NYSTATIN SUSP 500,000 U/5 ML UDC PO SCH ×4 (09:25→20:41)
[2017-02-06] MEDS: VARENICLINE (CHANTIX) 1 MG TAB PO SCH ×2 (09:25→20:41)
[2017-02-06] MEDS: ASPIRIN 81 MG ECTAB PO SCH (09:25)
[2017-02-06] MEDS: PAROXETINE 20 MG TAB PO SCH (09:26)
[2017-02-06] MEDS: GABAPENTIN 300 MG CAP PO SCH ×3 (09:26→20:41)
[2017-02-06] MEDS: LISINOPRIL 10 MG TAB PO SCH (09:27)
[2017-02-06] MEDS: PANTOprazole SOD 40 MG TAB PO SCH (09:27)
[2017-02-06] MEDS: METHYLPREDNISOLONE IV 40 MG in SYRINGE 0 ML IV SCH ×2 (09:42→17:32)
[2017-02-06] MEDS: INSULIN GLARGINE SOLOSTAR 100 UNITS/ML 3 ML PEN SC SCH ×2 (09:45→20:43)
[2017-02-06] MEDS: ACETAMINOPHEN 325 MG TAB PO PRN (09:46)
[2017-02-06] MEDS ORDERED: ALPRAZOLAM 0.5 MG TAB PO PRN (11:15)
[2017-02-06] MEDS ORDERED: LEVALBUTEROL 1.25MG/3ML NEB INH PRN (11:30)
[2017-02-06 11:48] LABS: ISTAT ALLEN TEST Pass; ISTAT ARTERIAL BLOOD GAS HCO3 22 meq/L (19-24); ISTAT ARTERIAL BLOOD GAS PCO2 34 mmHg (35-46); ISTAT ARTERIAL BLOOD GAS PO2 76 mmHg (80-95); ISTAT ARTERIAL BLOOD GAS pH 7.41 (7.35-7.45); ISTAT CARBON DIOXIDE 23 mEq/l (24-31); ISTAT SITE R Radial
--- NOTE | 2017-02-06 14:43 | Pharmacy Progress Note ---
Glycemic Control: Progress Nt Date of Service Feb 06, 2017. Scope Glycemic Pharmacist consulted by on 02/05/17 for glycemic control and to write orders per [facility] inpatient glycemic control protocol. Objective Accuchecks BSG (last 24hrs): Test 02/05/17 17:01 02/05/17 20:41 02/06/17 06:38 02/06/17 07:30 Bedside Glucose 134 mg/dl (70-90) 153 mg/dl (70-90) 133 mg/dl (70-90) Random Glucose 116 mg/dl (70-99) Test 02/06/17 11:22 Bedside Glucose 141 mg/dl (70-90) Laboratory Data (last 24hrs) Test 02/06/17 06:38 Anion Gap 8.0 mmol/L BUN/Creatinine Ratio 22.3 Blood Urea Nitrogen 29 mg/dl Creatinine 1.30 mg/dl Potassium Level 4.1 mmol/L Sodium Level 141 mmol/L White Blood Count 21.21 K/uL HbA1c: Test 02/05/17 06:26 Hemoglobin A1c 7.3 % (4.5-5.6) H Recent Pertinent Medications Outpatient Anti-diabetic Regimen: * n/a * A1c = 7.3 % from 02/05/17 Risk Factors for Insulin Resistance: * Infection: COPD exacerbation, On IV doxycycline * Steroids: SM 40mg IV [id number] * Diet: NPO Assessment & Plan ASSESSMENT: * ADA & AACE recommend a goal blood sugar range 140-180 mg/dl for the majority of critically ill & non-critically ill patients. However, more stringent targets may be selected in individual cases. * Pt made NPO this morning. * Prednisone changed back to SM IV [id number]. * Per MD, Lantus dose this morning was decreased by 50%. Will add HS dose of Lantus secondary to RTC steroids. * Consideration was given to tightening the Novolog parameters d/t RTC steroids. However, after review of BSG control presently I highly doubt that this is necessary. Therefore, will continue Novolog parameters as per yesterday. PLAN FOR INPATIENT GLYCEMIC CONTROL: * Lantus 8 units SQ qAM then per scale at bedtime * 0 units if steroids stopped * 5 units for BSG below 180 mg/dl * 10 units for BSG above 180 mg/dl * Novolog ACHS * Continue correction factor 25 mg/dl/unit * Continue carb ratio 1 unit per 8 grams CHO consumed * Continue goal range Low 110 mg/dL - High 140 mg/dL * Please note that the plan above was derived based on current level of insulin resistance and hospital stress. These recommendations are appropriate for inpatient admission only. Plan of care upon discharge will need to be reassessed to avoid potential outpatient hypo/hyperglycemia. Thank you.
--- NOTE | 2017-02-06 17:35 | Progress Note ---
Medicine Progress Note Date & Time of Visit: Feb 06, 2017 at 11:10. Subjective 66 yoF smoker with COPD presented with worsening cough, SOB and sputum production with color change in the last 2-3 days. Found to have an atypical pneumonia. Initially improved on steroids, abx, and neb treatments. She then began having "reactions" to the neb treatments ordered on 02/05 and we stopped them after noting severe shaking and feeling poor with excessive coughing. Overnight she didn't sleep but was OK from a respiratory standpoint and then developed worsened respiratory distress the morning of 02/06. She was placed on BIPAP with improvement. Objective Last 8 Hrs Date Time Temp Pulse Resp B/P (MAP) Pulse Ox O2 Delivery O2 Flow Rate FiO2 02/06/17 10:30 36.6 87 32 105/63 (77) 95 Nasal Cannula 2.5 02/06/17 10:00 37.1 107 28 143/83 (103) 93 Nasal Cannula 2.5 02/06/17 09:30 36.4 84 24 93/60 (71) 93 Nasal Cannula 2.5 84 02/06/17 08:55 89 20 94 Nasal Cannula 2.0 02/06/17 07:38 36.8 72 24 106/67 (80) 93 Nasal Cannula 2.5 Physical Exam: GEN: WNWD, tachypnea, alert and appropriate, appears in distress and using accessory muscles to breathe. HEENT: NC/AT, pupils are equal and round bilaterally, normal sclerae, mucous membranes are moist CARDIO: reg rate, S1/2 heard without m/g/r, no LE swelling or edema LUNGS: wheezing throughout all lungs whaley. ABD: soft, non-tender, non-distended, no rebound or guarding, +BS EXTREMITY: RP and DP palpable 2+ bilat, extremities are warm and well-perfused NEURO: CN 2-12 grossly intact, no gross focal deficits. MUSC: ambulatory SKIN: warm and dry Laboratory Results: 02/06/17 06:38 02/06/17 06:38 Test 02/04/17 23:00 02/04/17 23:45 02/05/17 01:40 02/05/17 06:26 Red Blood Cell Morphology Unremarkable Prothrombin Time 12.4 SECONDS (9.0-12.0) Prothromb Time International Ratio 1.2 (0.9-1.1) Activated Partial Thromboplast Time 29.3 SECONDS (21.0-31.0) Partial Thromboplastin Ratio 1.1 Magnesium Level 2.0 mg/dl (1.8-2.4) Total Bilirubin 1.1 mg/dl (0.2-1) Aspartate Amino Transf (AST/SGOT) 30 U/L (15-37) Alanine Aminotransferase (ALT/SGPT) 47 U/L (12-78) Alkaline Phosphatase 133 U/L (45-117) Troponin I < 0.015 ng/ml (0-0.045) Total Protein 7.5 gm/dl (6.4-8.2) Albumin 3.4 gm/dl (3.4-5.0) Globulin 4.1 gm/dl (2.5-4.0) Albumin/Globulin Ratio 0.8 (0.9-2) Thyroid Stimulating Hormone (TSH) 4.190 uIu/ml (0.300-4.500) Bedside Lactic Acid Venous 2.66 mmol/L (0.90-1.70) Arterial Blood pH 7.43 (7.35-7.45) Arterial Blood Partial Pressure CO2 32 mmHg (35-46) Arterial Blood Partial Pressure O2 70 mm/Hg (80-95) Arterial Blood HCO3 21 mmol/L (19-24) Arterial Blood Oxygen Saturation 93.8 % (90-95) Arterial Blood Base Excess -2.6 mEq/L (-9-1.8) Arterial Blood Gas Delivery 2L Franky Test POS (POS) Lactic Acid Level 1.8 mmol/L (0.4-2.0) Immature Granulocyte % (Auto) 0.3 % White Blood Count 17.81 K/uL (4.8-10.8) Red Blood Count 4.14 M/uL (4.2-5.4) Hemoglobin 12.4 g/dL (12.0-16.0) Hematocrit 37.7 % (37-47) Mean Corpuscular Volume 91.1 fL (80-100) Mean Corpuscular Hemoglobin 30.0 pg (25-34) Mean Corpuscular Hemoglobin Concent 32.9 g/dl (32-36) Platelet Count 357 K/uL (130-400) Mean Platelet Volume 9.1 fL (7.4-10.4) Neutrophils (%) (Auto) 89.2 % Lymphocytes (%) (Auto) 6.9 % Monocytes (%) (Auto) 3.4 % Eosinophils (%) (Auto) 0.1 % Basophils (%) (Auto) 0.1 % Neutrophils # (Auto) 15.91 K/uL (1.4-6.5) Lymphocytes # (Auto) 1.22 K/uL (1.2-3.4) Monocytes # (Auto) 0.60 K/uL (0.11-0.59) Eosinophils # (Auto) 0.01 K/uL (0-0.5) Basophils # (Auto) 0.01 K/uL (0-0.2) Immature Granulocyte # (Auto) 0.06 K/uL (0.00-0.02) Estimated Average Glucose 163 mg/dl Hemoglobin A1c 7.3 % (4.5-5.6) Hepatitis C Antibody Screen NEG (NEG) Test 02/05/17 11:05 02/06/17 06:38 02/06/17 11:26 02/06/17 16:29 Urine Color DK YELLOW Urine Appearance CLEAR (CLEAR) Urine pH 5.5 (4.5-7.5) Urine Specific Bertrand 1.020 (1.000-1.030) Urine Protein NEG (NEG) Urine Glucose (UA) NEG (NEG) Urine Ketones TRACE (NEG) Urine Occult Blood NEG (NEG) Urine Nitrite NEG (NEG) Urine Bilirubin NEG (NEG) Urine Urobilinogen NEG (NEG) Urine Leukocyte Esterase NEG (NEG) Red Blood Count 3.97 M/uL (4.2-5.4) Mean Corpuscular Volume 91.9 fL (80-100) Mean Corpuscular Hemoglobin 30.0 pg (25-34) Mean Corpuscular Hemoglobin Concent 32.6 g/dl (32-36) RDW Standard Deviation 48.6 fL (36.4-46.3) RDW Coefficient of Variation 14.4 % (11.5-14.5) Mean Platelet Volume 9.2 fL (7.4-10.4) Anion Gap 8.0 mmol/L (3-11) Est Creatinine Clear Calc Drug Dose 49.5 ml/min Estimated GFR () 49.9 Estimated GFR (Non- 43.0 BUN/Creatinine Ratio 22.3 (10-20) Calcium Level 8.6 mg/dl (8.5-10.1) Blood Gas Sample Site R Radial Bedside Blood Gas pH (LAB) 7.41 (7.35-7.45) Bedside Blood Gas pCO2 (LAB) 34 mmHg (35-46) Bedside Blood Gas pO2 (LAB) 76 mmHg (80-95) Bedside Blood Gas HCO3 (LAB) 22 meq/L (19-24) Bedside Blood Gas Total CO2 23 mEq/l (24-31) Bedside Blood Gas Base Excess (LAB) -3.0 meq/L (-9-1.8) Bedside Blood Gas O2 Saturation 96.0 % (90-95) Franky Test Pass Bedside Glucose 170 mg/dl (70-90) Date/Time Source Procedure Growth Status 02/04/17 23:35 Blood Blood Culture - Preliminary NO GROWTH TO DATE. Resulted 02/04/17 23:30 Throat Group A Streptococcus Screen - Final SPECIMEN NEGATIVE FOR GROUP A BETA ST... Resulted 02/04/17 23:30 Throat Group A Streptococcus Screen (NIECY) - Preliminary BETA-HEMOLYTIC COLONIES PRESENT, MICHAEL... Resulted Last 24 Hours Test 02/05/17 17:01 02/05/17 20:41 02/06/17 06:38 02/06/17 07:30 Bedside Glucose 134 mg/dl 153 mg/dl 133 mg/dl White Blood Count 21.21 K/uL Red Blood Count 3.97 M/uL Hemoglobin 11.9 g/dL Hematocrit 36.5 % Mean Corpuscular Volume 91.9 fL Mean Corpuscular Hemoglobin 30.0 pg Mean Corpuscular Hemoglobin Concent 32.6 g/dl RDW Standard Deviation 48.6 fL RDW Coefficient of Variation 14.4 % Platelet Count 406 K/uL Mean Platelet Volume 9.2 fL Sodium Level 141 mmol/L Potassium Level 4.1 mmol/L Chloride Level 110 mmol/L Carbon Dioxide Level 23 mmol/L Anion Gap 8.0 mmol/L Blood Urea Nitrogen 29 mg/dl Creatinine 1.30 mg/dl Est Creatinine Clear Calc Drug Dose 49.5 ml/min Estimated GFR () 49.9 Estimated GFR (Non- 43.0 BUN/Creatinine Ratio 22.3 Random Glucose 116 mg/dl Calcium Level 8.6 mg/dl Test 02/06/17 10:48 Diagnostic Imaging: CHEST ONE VIEW PORTABLE CLINICAL HISTORY: increased SOB with inc work of breathing dyspnea COMPARISON STUDY: 02/04/2017 FINDINGS: The bones soft tissues and hemidiaphragms are normal. The cardiomediastinal silhouette is normal. The lungs are clear. The pulmonary vasculature is normal. IMPRESSION: Mild emphysematous change. No acute process. No change from the prior exam. Assessment & Plan 66 yoF smoker with COPD presented with worsening cough, SOB and sputum production with color change in the last 2-3 days. Found to have an atypical pneumonia. Initially improved on steroids, abx, and neb treatments. She then began having "reactions" to the neb treatments ordered on 02/05 and we stopped them after noting severe shaking and feeling poor with excessive coughing. Overnight she didn't sleep but was OK from a respiratory standpoint and then developed worsened respiratory distress the morning of 02/06. She was placed on BIPAP with improvement. 1. Acute on chronic hypoxemic respiratory failure 2/2 COPD exacerbation with community-acquired pneumonia. Cont doxy, Duonebs, prednisone changed to IV steroids with active wheezing on exam and BIPAP applied. ABG prior to BIPAP was 7.41/34/76. Preliminary blood cultures are negative. Atenolol on hold in setting of active wheezing. Will change doxy to Zosyn with worsening clinical picture in setting of atypical pneumonia. 2. Thrush-Diflucan considered with recurrent thrush not improved with clotrimazole trouche or nystatin, however, this interacts with her amitryptiline. I am continuing to wean the amitryptiline in order to start the diflucan. 3. CKD-stage III, creat at baseline 1.5. Cont lisinopril. 4. Chronic systolic heart failure-compensated. Cont lisinopril and ASA, atenolol on hold 2/2 active wheezing. 5. Tobacco use-on Chantix for smoking cessation which is being held while on BIPAP, initially declined nicotine replacement, however, she is requesting it now. Placed order. 6. Hyperglycemia 2/2 steroids-currently controlled, she doesn't have a formal diagnosis of DMII, however, A1C is 7.3 which indicates that hyperglycemia has been ongoing for a while. Poss steroid-induced, but will need to consider oral hypoglycemics on discharge, especially if discharged on steroids. In the hospital will cont ISS/Lantus coverage as required. 7. Hypothyroidism-TSH stable, cont home Synthroid 8. Anxiety-cont Buspar, decreasing Elavil as above. 9. Leukocytosis 2/2 #1 and steroid use. DVT proph-Heparin SQ Full Code Dispo-cont to monitor closely on BIPAP, will increase her to telemetry monitored bed status with ongoing respiratory distress. Letha Banda DO [facility] Hospitalist Current Inpatient Medications: Current Inpatient Medications Medications (Trade) Dose Ordered Sig/Magdalene Route Start Time Stop Time Status Last Admin Dose Admin Doxycycline Hyclate 100 mg/ Dextrose 110 ml @ 50 mls/hr BID IV 02/05/17 21:00 02/12/17 20:59 02/06/17 09:01 50 MLS/HR Acetaminophen (Tylenol Tab) 650 mg Q4H PRN PO 02/05/17 03:15 03/07/17 03:14 02/06/17 09:46 650 MG Aspirin (Ecotrin Tab) 81 mg DAILY PO 02/05/17 09:00 03/07/17 08:59 02/06/17 09:25 81 MG Atenolol (Tenormin Tab) 25 mg DAILY PO 02/05/17 09:00 03/07/17 08:59 Future Hold 02/05/17 09:04 25 MG Gabapentin (Neurontin Cap) 300 mg TID PO 02/05/17 09:00 03/07/17 08:59 02/06/17 09:26 300 MG Levothyroxine Sodium (Synthroid Tab) 75 mcg DAILYBB PO 02/05/17 06:30 03/07/17 06:29 02/06/17 06:16 75 MCG Nitroglycerin (Nitrostat Tab) 0.4 mg UD PRN UT 02/05/17 03:15 03/07/17 03:14 Pantoprazole Sodium (Protonix Tab) 40 mg QAM PO 02/05/17 09:00 03/07/17 08:59 02/06/17 09:27 40 MG Paroxetine HCl (pAXil TAB) 40 mg QAM PO 02/05/17 09:00 03/07/17 08:59 02/06/17 09:26 40 MG Ropinirole HCl (Requip Tab) 0.25 mg HS PO 02/05/17 21:00 03/07/17 20:59 02/05/17 21:33 0.25 MG Senna/Docusate Sodium (Senokot S Tab) 1 tab Q24H PRN PO 02/05/17 03:15 03/07/17 03:14 Sucralfate (Carafate Susp) 1 gm Q6H PO 02/05/17 06:00 03/07/17 05:59 02/06/17 06:16 1 GM Tramadol HCl (Ultram Tab) 50 mg Q8H PRN PO 02/05/17 03:15 03/07/17 03:14 Miscellaneous Information (Order Awaiting Action) 1 ea QS N/A 02/05/17 08:00 03/07/17 07:59 Buspirone HCl (BusPAR TAB) 30 mg BID PO 02/05/17 09:00 03/07/17 08:59 02/06/17 09:24 30 MG Miscellaneous Information (Order Awaiting Action) 1 ea QS N/A 02/05/17 08:00 03/07/17 07:59 Varenicline (Chantix) 1 mg BID PO 02/05/17 09:00 03/07/17 08:59 02/06/17 09:25 1 MG Ondansetron HCl (Zofran Inj) 4 mg Q6H PRN IV 02/05/17 03:15 03/07/17 03:14 Heparin Sodium (Porcine) (Heparin Sq 5000 Unit/0.5ml) 5,000 unit Q8 SQ 02/05/17 06:00 03/07/17 05:59 02/06/17 06:20 5,000 UNIT Insulin Aspart (novoLOG ASPART) SLIDING SCALE If C... ACHS SC 02/05/17 11:00 03/07/17 10:59 02/05/17 21:28 1 UNITS Glucose (Glucose 40% Gel) 15-30 GRAMS 15 GRAMS... UD PRN PO 02/05/17 06:15 03/07/17 06:14 Glucose (Glucose Chew Tab) 4-8 Tablets 4 Tabl... UD PRN PO 02/05/17 06:15 03/07/17 06:14 Dextrose (Dextrose 50% 50ML Syringe) 25-50ML OF 50% DW IV FOR... UD PRN IV 02/05/17 06:15 03/07/17 06:14 Glucagon (Glucagon Inj) 1 mg UD PRN SQ 02/05/17 06:15 03/07/17 06:14 Miscellaneous Information (Consult Glycemic Management Pharmacy) 1 ea UD PRN N/A 02/05/17 12:19 03/07/17 12:18 Lisinopril (Zestril Tab) 10 mg DAILY PO 02/06/17 09:00 03/08/17 08:59 02/06/17 09:27 10 MG Amitriptyline HCl (Elavil Tab) 25 mg HS PO 02/05/17 21:00 03/07/17 20:59 02/05/17 21:32 25 MG Nystatin (Mycostatin Susp) 5 ml QID PO 02/05/17 21:00 02/15/17 20:59 02/06/17 09:25 5 ML Menthol (Nice Adan) 1 adan PRN PRN PO 02/06/17 06:00 03/08/17 05:59 Ipratropium [place] (Atrovent 0.02% 0.5MG/2.5ML Neb) 0.5 mg Q6R INH 02/06/17 09:00 03/08/17 08:59 02/06/17 08:55 0.5 MG Levalbuterol (Xopenex 1.25MG/ 0.5ML Neb) 1.25 mg Q6R INH 02/06/17 09:00 03/08/17 08:59 02/06/17 08:55 1.25 MG Methylprednisolone Sodium Succinate 40 mg/Syringe 0.64 ml @ 1.5 mls/min Q8H IV 02/06/17 09:30 03/08/17 09:29 02/06/17 09:42 1.5 MLS/MIN Insulin Glargine (Lantus Solostar Pen) SEE PROTOCOL TEXT HS SC 02/06/17 21:00 03/08/17 20:59 Insulin Glargine (Lantus Solostar Pen) 8 unit QAM SC 02/06/17 09:30 03/08/17 09:29 02/06/17 09:45 8 UNIT
[2017-02-06] MEDS ORDERED: PIPERACILL/TAZOBAC CONSULT ACTIVE PRN (18:15)
[2017-02-06] MEDS ORDERED: PIPERACILL/TAZOBAC IV 4.5 GM in DEXTROSE 5% 100ML IV SCH (18:30)
[2017-02-06] MEDS ORDERED: NURSING VERBAL MED ORDER ONE (19:15)
[2017-02-06] MEDS: AMITRIPTYLINE HCL 25 MG TAB PO SCH (20:41)
[2017-02-06] MEDS: ROPINIROLE HCL 0.25 MG TAB PO SCH (20:42)
[2017-02-07] VITALS (10 sets, daily range): BP systolic 110–134; BP diastolic 64–84; PULSE 72–94; TEMP 36.4–36.8; O2SAT 91–97
[2017-02-07] MEDS ORDERED: PIPERACILL/TAZOBAC IV 4.5 GM in DEXTROSE 5% 100ML IV SCH ×2
[2017-02-07] MEDS: SUCRALFATE 1 GM/10 ML UDC PO SCH ×5 (00:26→22:53)
[2017-02-07] MEDS: INSULIN ASPART 100 UNITS/ML 3 ML PEN SC SCH ×5 (00:26→20:25)
[2017-02-07] MEDS ORDERED: GUAIFENESIN 600 MG TABCR PO ONE (01:08)
[2017-02-07] MEDS: BENZONATATE 100MG CAP PO PRN ×2 (01:33→08:03)
[2017-02-07] MEDS: METHYLPREDNISOLONE IV 40 MG in SYRINGE 0 ML IV SCH ×3 (01:33→16:47)
[2017-02-07] MEDS: IPRATROPIUM BROMIDE NEB SOLN 0.02% 2.5 ML VIAL INH SCH ×4 (02:10→19:35)
[2017-02-07] MEDS: LEVALBUTEROL 1.25MG/0.5ML NEB INH SCH ×4 (02:10→19:35)
[2017-02-07] MEDS: HEPARIN SOD 5000 UNIT/0.5 ML CARP SQ SCH ×3 (06:08→22:55)
[2017-02-07] MEDS: LEVOTHYROXINE 75 MCG TAB PO SCH (06:09)
[2017-02-07 07:55] LABS: BASO % 0.1 %; BASO ABS # 0.02 K/uL (0-0.2); COMPLETE YES; HEMATOCRIT 36.2 % (37-47); IG% 0.4 %; LYMPH % 13.7 %; LYMPH ABS # 1.84 K/uL (1.2-3.4); MEAN CELL VOLUME 92.8 fL (80-100); MEAN CORPUSCULAR HGB CONC 32.3 g/dl (32-36); MEAN PLATELET VOLUME 9.2 fL (7.4-10.4); MONO % 4.2 %; NEUT % 81.6 %; PLATELET COUNT 436 K/uL (130-400); WHITE BLOOD COUNT 13.45 K/uL (4.8-10.8)
[2017-02-07] MEDS: XYZAL~ORDER AWAITING ACTION SCH ×4 (08:00→19:45)
[2017-02-07] MEDS: PANTOprazole SOD 40 MG TAB PO SCH (08:01)
[2017-02-07] MEDS: PAROXETINE 20 MG TAB PO SCH (08:02)
[2017-02-07] MEDS: ASPIRIN 81 MG ECTAB PO SCH (08:02)
[2017-02-07] MEDS: GUAIFENESIN 600 MG TABCR PO SCH ×2 (08:02→20:26)
[2017-02-07] MEDS: NICOTINE 21 MG/24 HR TDSY TD SCH (08:02)
[2017-02-07] MEDS: VARENICLINE (CHANTIX) 1 MG TAB PO SCH ×2 (08:03→20:26)
[2017-02-07] MEDS: BusPIRone 15 MG TAB PO SCH ×2 (08:03→20:26)
[2017-02-07] MEDS: LISINOPRIL 10 MG TAB PO SCH (08:03)
[2017-02-07] MEDS: GABAPENTIN 300 MG CAP PO SCH ×3 (08:03→20:26)
[2017-02-07] MEDS: NYSTATIN SUSP 500,000 U/5 ML UDC PO SCH ×4 (08:04→20:26)
[2017-02-07] MEDS: INSULIN GLARGINE SOLOSTAR 100 UNITS/ML 3 ML PEN SC SCH ×2 (08:05→20:28)
[2017-02-07 08:26] LABS: BUN/CREATININE RATIO 23.9 (10-20); CREATININE 1.2 mg/dl (0.60-1.20); MAGNESIUM 2.5 mg/dl (1.8-2.4); POTASSIUM 4.3 mmol/L (3.5-5.1)
[2017-02-07 08:34] LABS: CALCIUM 8.4 mg/dl (8.5-10.1)
--- NOTE | 2017-02-07 09:04 | Progress Note ---
Medicine Progress Note Date & Time of Visit: Feb 07, 2017 at 08:55. Subjective patient seen resting in bed, comfortable had a good night off bipap, only on 2 liters NC breathing improved today compared to yesterday still has productive cough reports nasal congestion denies chest pain, palpitations, dizziness no other symptoms Objective Last 8 Hrs Date Time Temp Pulse Resp B/P (MAP) Pulse Ox O2 Delivery O2 Flow Rate FiO2 02/07/17 08:00 Nasal Cannula 2.0 02/07/17 07:37 84 16 97 Nasal Cannula 2.0 02/07/17 07:03 36.6 75 20 114/75 (88) 95 Nasal Cannula 2.0 02/07/17 04:00 Nasal Cannula 2.0 BiPAP 02/07/17 03:59 36.4 72 22 110/70 (83) 92 Nasal Cannula 2.0 02/07/17 02:10 76 16 97 Nasal Cannula 2.0 Physical Exam: General- oriented x 3, not in distress, speaks in sentences with no effort Head- atraumatic Eyes- EOMI, anicteric ENT- oropharynx clear Neck- supple, no JVD, no adenopathy, no thyromegaly Lungs- (+) expiratory wheeze- mild, scattered, right > left; (+) distant breath sounds Heart- regular rhythm; no murmur, no murmurs Abdomen- normal bowel sounds, soft, nontender Extremities- no pretibial edema, no calf tenderness; peripheral pulses intact Neuro- alert, oriented x 3; no gross focal deficits Skin- warm & dry Laboratory Results: Last 24 Hours Test 02/06/17 11:22 02/06/17 11:26 02/06/17 16:29 02/06/17 18:20 Bedside Glucose 141 mg/dl 170 mg/dl 175 mg/dl Blood Gas Sample Site R Radial Bedside Blood Gas pH (LAB) 7.41 Bedside Blood Gas pCO2 (LAB) 34 mmHg Bedside Blood Gas pO2 (LAB) 76 mmHg Bedside Blood Gas HCO3 (LAB) 22 meq/L Bedside Blood Gas Total CO2 23 mEq/l Bedside Blood Gas Base Excess (LAB) -3.0 meq/L Bedside Blood Gas O2 Saturation 96.0 % Franky Test Pass Test 02/06/17 20:38 02/07/17 00:00 02/07/17 05:57 02/07/17 07:11 Bedside Glucose 152 mg/dl 144 mg/dl 166 mg/dl White Blood Count 13.45 K/uL Red Blood Count 3.90 M/uL Hemoglobin 11.7 g/dL Hematocrit 36.2 % Mean Corpuscular Volume 92.8 fL Mean Corpuscular Hemoglobin 30.0 pg Mean Corpuscular Hemoglobin Concent 32.3 g/dl Platelet Count 436 K/uL Mean Platelet Volume 9.2 fL Neutrophils (%) (Auto) 81.6 % Lymphocytes (%) (Auto) 13.7 % Monocytes (%) (Auto) 4.2 % Eosinophils (%) (Auto) 0.0 % Basophils (%) (Auto) 0.1 % Neutrophils # (Auto) 10.97 K/uL Lymphocytes # (Auto) 1.84 K/uL Monocytes # (Auto) 0.57 K/uL Eosinophils # (Auto) 0.00 K/uL Basophils # (Auto) 0.02 K/uL RDW Standard Deviation 49.5 fL RDW Coefficient of Variation 14.5 % Immature Granulocyte % (Auto) 0.4 % Immature Granulocyte # (Auto) 0.05 K/uL Sodium Level 142 mmol/L Potassium Level 4.3 mmol/L Chloride Level 109 mmol/L Carbon Dioxide Level 23 mmol/L Anion Gap 10.0 mmol/L Blood Urea Nitrogen 29 mg/dl Creatinine 1.20 mg/dl Est Creatinine Clear Calc Drug Dose 53.1 ml/min Estimated GFR () 54.9 Estimated GFR (Non- 47.4 BUN/Creatinine Ratio 23.9 Random Glucose 146 mg/dl Calcium Level 8.4 mg/dl Magnesium Level 2.5 mg/dl Assessment & Plan 66 year old female with history of COPD on home o2, Smoker, Chronic CHF, HTN, other problems noted below presenting with shortness of breath. 1. Acute on chronic hypoxemic respiratory failure 2/2 COPD exacerbation - likely from Acute Bronchitis - CXR: no pneumonia - was not improving on Doxycycline, Prednisone - started on Bipap, started Zosyn, Methylprednisolone IV - improved today, off Bipap -- de escalate Zosyn to Cefepime, add Azithromycin for atypical coverage continue Solumedrol, Nebs q6h will consult Pulmonary 2. Oral Candidiasis -- received Fluconazole PO 1 dose 02/05/17 -- now on Nystatin -- improving -- Amytriptiline being weaned off 3. CKD-stage III -- stable 4. Chronic systolic heart failure -- euvolemic -- Cont lisinopril and ASA, atenolol on hold / active wheezing. 5. Tobacco use -- Nicotine Patch 6. DM 2, new diagnosis -- A1C is 7.3 -- on ISS, Lantus Pharm on board -- will need oral agents on discharge DM educator 7. Hypothyroidism-TSH stable, cont home Synthroid 8. Anxiety-cont Buspar, decreasing Elavil as above. DVT proph-Heparin SQ Full Code Dispo pending PT/OT anticipate d/c home when medically stable Current Inpatient Medications: Current Inpatient Medications Medications (Trade) Dose Ordered Sig/Magdalene Route Start Time Stop Time Status Last Admin Dose Admin Acetaminophen (Tylenol Tab) 650 mg Q4H PRN PO 02/05/17 03:15 03/07/17 03:14 02/06/17 09:46 650 MG Aspirin (Ecotrin Tab) 81 mg DAILY PO 02/05/17 09:00 03/07/17 08:59 02/07/17 08:02 81 MG Atenolol (Tenormin Tab) 25 mg DAILY PO 02/05/17 09:00 03/07/17 08:59 Future Hold 02/05/17 09:04 25 MG Gabapentin (Neurontin Cap) 300 mg TID PO 02/05/17 09:00 03/07/17 08:59 02/07/17 08:03 300 MG Levothyroxine Sodium (Synthroid Tab) 75 mcg DAILYBB PO 02/05/17 06:30 03/07/17 06:29 02/07/17 06:09 75 MCG Nitroglycerin (Nitrostat Tab) 0.4 mg UD PRN UT 02/05/17 03:15 03/07/17 03:14 Pantoprazole Sodium (Protonix Tab) 40 mg QAM PO 02/05/17 09:00 03/07/17 08:59 02/07/17 08:01 40 MG Paroxetine HCl (pAXil TAB) 40 mg QAM PO 02/05/17 09:00 03/07/17 08:59 02/07/17 08:02 40 MG Ropinirole HCl (Requip Tab) 0.25 mg HS PO 02/05/17 21:00 03/07/17 20:59 02/06/17 20:42 0.25 MG Senna/Docusate Sodium (Senokot S Tab) 1 tab Q24H PRN PO 02/05/17 03:15 03/07/17 03:14 Sucralfate (Carafate Susp) 1 gm Q6H PO 02/05/17 06:00 03/07/17 05:59 02/07/17 06:06 1 GM Tramadol HCl (Ultram Tab) 50 mg Q8H PRN PO 02/05/17 03:15 03/07/17 03:14 Miscellaneous Information (Order Awaiting Action) 1 ea QS N/A 02/05/17 08:00 03/07/17 07:59 Buspirone HCl (BusPAR TAB) 30 mg BID PO 02/05/17 09:00 03/07/17 08:59 02/07/17 08:03 30 MG Miscellaneous Information (Order Awaiting Action) 1 ea QS N/A 02/05/17 08:00 03/07/17 07:59 Varenicline (Chantix) 1 mg BID PO 02/05/17 09:00 03/07/17 08:59 02/07/17 08:03 1 MG Ondansetron HCl (Zofran Inj) 4 mg Q6H PRN IV 02/05/17 03:15 03/07/17 03:14 Heparin Sodium (Porcine) (Heparin Sq 5000 Unit/0.5ml) 5,000 unit Q8 SQ 02/05/17 06:00 03/07/17 05:59 02/07/17 06:08 5,000 UNIT Glucose (Glucose 40% Gel) 15-30 GRAMS 15 GRAMS... UD PRN PO 02/05/17 06:15 03/07/17 06:14 Glucose (Glucose Chew Tab) 4-8 Tablets 4 Tabl... UD PRN PO 02/05/17 06:15 03/07/17 06:14 Dextrose (Dextrose 50% 50ML Syringe) 25-50ML OF 50% DW IV FOR... UD PRN IV 02/05/17 06:15 03/07/17 06:14 Glucagon (Glucagon Inj) 1 mg UD PRN SQ 02/05/17 06:15 03/07/17 06:14 Miscellaneous Information (Consult Glycemic Management Pharmacy) 1 ea UD PRN N/A 02/05/17 12:19 03/07/17 12:18 Lisinopril (Zestril Tab) 10 mg DAILY PO 02/06/17 09:00 03/08/17 08:59 02/07/17 08:03 10 MG Amitriptyline HCl (Elavil Tab) 25 mg HS PO 02/05/17 21:00 03/07/17 20:59 02/06/17 20:41 25 MG Nystatin (Mycostatin Susp) 5 ml QID PO 02/05/17 21:00 02/15/17 20:59 02/07/17 08:04 5 ML Menthol (Nice Ashley) 1 ashley PRN PRN PO 02/06/17 06:00 03/08/17 05:59 Ipratropium [place] (Atrovent 0.02% 0.5MG/2.5ML Neb) 0.5 mg Q6R INH 02/06/17 09:00 03/08/17 08:59 02/07/17 07:54 0.5 MG Levalbuterol (Xopenex 1.25MG/ 0.5ML Neb) 1.25 mg Q6R INH 02/06/17 09:00 03/08/17 08:59 02/07/17 07:54 1.25 MG Methylprednisolone Sodium Succinate 40 mg/Syringe 0.64 ml @ 1.5 mls/min Q8H IV 02/06/17 09:30 03/08/17 09:29 02/07/17 08:01 1.5 MLS/MIN Insulin Glargine (Lantus Solostar Pen) SEE PROTOCOL TEXT HS SC 02/06/17 21:00 03/08/17 20:59 02/06/17 20:43 5 UNIT Insulin Glargine (Lantus Solostar Pen) 8 unit QAM SC 02/06/17 09:30 03/08/17 09:29 02/07/17 08:05 8 UNIT Alprazolam (Xanax Tab) 0.5 mg Q6H PRN PO 02/06/17 11:15 03/08/17 11:14 02/06/17 11:36 0.5 MG Levalbuterol (Xopenex 1.25MG/ 3ML Neb) 1.25 mg Q2H PRN INH 02/06/17 11:30 03/08/17 11:29 02/06/17 11:45 1.25 MG Nicotine (Nicoderm Cq 21MG Patch) 1 patch QAM TD 02/07/17 09:00 03/09/17 08:59 02/07/17 08:02 1 PATCH Miscellaneous (Remove Nicoderm Patch) 1 ea HS N/A 02/06/17 21:00 03/08/17 20:59 Piperacillin Sod/ Tazobactam Sod (Consult) 1 ea UD PRN N/A 02/06/17 18:15 03/08/17 18:14 Piperacillin Sod/ Tazobactam Sod 4.5 gm/Dextrose 120 ml @ 30 mls/hr Q8H IV 02/07/17 00:00 02/14/17 00:00 02/07/17 00:51 30 MLS/HR Insulin Aspart (novoLOG ASPART) SLIDING SCALE If C... Q6 SC 02/07/17 00:00 03/09/17 00:00 02/07/17 06:09 1 UNITS Guaifenesin (Mucinex Contr Rel Tab) 600 mg Q12 PO 02/07/17 09:00 03/09/17 08:59 02/07/17 08:02 600 MG Benzonatate (Tessalon Perles Cap) 100 mg Q8H PRN PO 02/07/17 01:15 03/09/17 01:14 02/07/17 08:03 100 MG Fluticasone Propionate (Flonase Nasal [place]) 2 sprays DAILY NA 02/07/17 09:00 03/09/17 08:59 UNV
[2017-02-07] MEDS ORDERED: AZITHROMYCIN 250 MG TAB PO ONE (09:30)
[2017-02-07] MEDS: CEFEPIME IV 2,000 MG in DEXTROSE 5% 100ML 100 ML IV SCH ×2 (10:21→22:53)
[2017-02-07] MEDS: FLUTICASONE PROPIONATE NA SPR 16 GM BTL SCH (10:22)
--- NOTE | 2017-02-07 16:36 | PULMONARY CONSULTATION ---
DATE OF CONSULTATION: 02/07/2017 TIME: 11:50 a.m. REPORT OF CONSULTATION: The patient was seen in room 238, bed 2. She is a 66-year-old female with a history of severe COPD and prior respiratory failure. Several weeks ago, she had cough and shortness of breath. She was treated with a rescue kit including an antibiotic and some prednisone. It seemed to help for a while. Several days before admission she developed increasing cough and increasing shortness of breath. She was having fevers. Her temperature at home was as high as 102.8. She had chills and sweats. She had a sore throat. She had headache. She has chronic nasal congestion and postnasal drip. She was nauseated. The patient ultimately came to the Emergency Room in the late hours of February 04 and was admitted in the early hours of the . She is still coughing a lot, but it is better. Her mucus had been dark green and thick. It is now a viscera washer green and not as thick. The quantity of phlegm is decreasing. There has been no hemoptysis. She has not had chest pains. She has not had fevers since admission. She is still short of breath, but it is getting somewhat better. In 2013, the patient was in respiratory failure. She was hospitalized from September 09 through October 04. A tracheostomy was done during that hospital stay. She also had a PEG tube inserted. She went to [facility]. After she was just there a couple of days, her tube became clogged. She was sent back to the Emergency Room. Attempts were made to replace the tube and they felt it was very narrow. The trach was just removed and left out. Since that time, the patient has had a few exacerbations, but none significant enough that she had to be admitted. The patient has had significant changes over time in terms of her breathing medicines. Also the medicines we have listed on the reconciliation are not correlating with what she tells me. At home she does have an albuterol rescue inhaler. She has nebulizer treatments with albuterol that she only uses when she is sick. She previously had budesonide, but they were stopped. Recently she has been on Flovent HFA. She has also been on Anoro Ellipta. She is not on maintenance prednisone. The patient states that she cannot climb steps. She did go through pulmonary rehab this past winter. She loved it and felt much better when she was doing it. She admits to not following up with the exercises that they had recommended and she is not doing much walking. The patient has continued to smoke until she quit about 3 weeks ago. She had been on Chantix. The Chantix seems to make her nauseated at least at the usual doses. She has smoked overall 44 years between 1 and 1.5 packs per day. Alcohol use is denied. PAST MEDICAL HISTORY: 1. Anxiety. 2. Depression. 3. Migraine headaches. 4. CHF, both systolic and diastolic. 5. Hypertension. 6. Hypothyroidism. 7. Macular degeneration. 8. Chronic back pain. 9. Addiction to oral narcotic medications for which she went through withdrawal. PAST SURGICAL HISTORY: 1. Tubal ligation. 2. Sinus surgery. 3. Nasal septum repair. 4. PEG tube. 5. Tracheostomy. ALLERGIES: LISTED ALLERGY TO LEVAQUIN. She lists an allergy to codeine, but she states it was just that she got addicted to codeine. 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 This was 25 years ago. FAMILY HISTORY: Positive for heart disease. REVIEW OF SYSTEMS: The patient has postnasal drip as noted. Her sore throat has improved. Her headache has resolved. She has chronic nasal congestion. Her appetite is still decreased. Her nausea is better. She has constipation at times and other times diarrhea. She has some degree of urinary stress incontinence. The remainder of the review of systems is otherwise negative except as noted above. PHYSICAL EXAMINATION: GENERAL: The patient is a 66-year-old female who looks older than her chronologic age. She was cooperative, alert and oriented. Her voice was slightly high pitched. VITAL SIGNS: Temperature is 36.6 and there have been no fevers since admission. HEENT: Eye exam suggests cataracts bilaterally. Nares were mildly congested. Mouth exam showed dentures. There was no evidence of acute candidiasis at present, although I believe she has been receiving treatment. NECK: Palpation in the neck reveals no lymph nodes. She has a scar in the neck from prior tracheostomy. CHEST: Her heart rate is 94 per minute. The rhythm is regular. Blood pressure 114/75. Respiratory rate was 20 breaths per minute. There is mild wheeze on expiration. Otherwise, the breath sounds were diminished. Saturation was 97% on 2 liters. She has some degree of increased AP diameter. ABDOMEN: Soft. Bowel sounds were present. There was no tenderness to palpation or mass. EXTREMITIES: Showed no cyanosis, clubbing or edema. The patient had a chest x-ray done on admission and again on the . This showed emphysematous changes but no evidence of definite infiltrate. LABORATORY DATA: CBC on admission showed a white count of 24.29. This has gradually improved. Today, the white count is 13.45. Hemoglobin is 11.7. Platelet count is 436,000. Coags on the showed INR of 1.2 and PTT 29.3. Urinalysis was unremarkable. Blood gas done on admission showed a pH of 7.43 with a pCO2 of 32 and a pO2 of 70 done on 2 liters. Repeat blood gas on the morning of February 06 showed a pH of 7.41 with a pCO2 of 34 and a pO2 of 76. Electrolytes show sodium 142, potassium 4.3, chloride 109, bicarbonate 23. The BUN was 29 with a creatinine of 1.2. Blood sugar today was 146. Blood cultures showed no growth thus far. Throat culture was negative. IMPRESSION: 1. Chronic obstructive pulmonary disease with exacerbation. 2. Nicotine addiction. 3. Status post tracheostomy. COMMENTS: The patient appears to have had an acute bronchitis which resulted in an exacerbation of her COPD. Her white count was elevated but has improved with therapy. Her chest x-ray did not show definite infiltrates. She feels that she is clinically better. For antibiotics she is currently on cefepime and azithromycin. She is receiving levalbuterol and ipratropium q.6 hours and p.r.n. if need be. She is still on methylprednisolone 40 mg IV q.8. I believe I would continue with all these as she is currently receiving. If she is a little better tomorrow, would taper the methylprednisolone somewhat. When that happens this will probably help her blood sugars as well. Obviously, the patient needs to totally abstain from smoking on a permanent basis. She has been taking Chantix at home but having some nausea. It could be that she would tolerate Chantix at a lower dose. She could try the 0.5 mg b.i.d. I believe rather than the 1 mg b.i.d. if indeed that is what she has been doing. Currently, she is on 1 mg b.i.d. here. She has had pulmonary functions as an outpatient at [facility]. It would be appreciated if these studies could be retrieved and made available for review. She does have a prior tracheostomy and we want to make sure she does not have an upper airway obstruction. Thank you for asking me to assist in her care.
[2017-02-07] MEDS ORDERED: NURSING VERBAL MED ORDER ONE (19:30)
[2017-02-07] MEDS: AMITRIPTYLINE HCL 25 MG TAB PO SCH (20:26)
[2017-02-07] MEDS: ROPINIROLE HCL 0.25 MG TAB PO SCH (20:26)
[2017-02-08] VITALS (11 sets, daily range): BP systolic 105–156; BP diastolic 66–91; PULSE 75–88; TEMP 36.5–36.7; O2SAT 90–98
[2017-02-08] MEDS: METHYLPREDNISOLONE IV 40 MG in SYRINGE 0 ML IV SCH ×3 (01:35→21:30)
[2017-02-08] MEDS: LEVALBUTEROL 1.25MG/0.5ML NEB INH SCH ×4 (01:51→19:06)
[2017-02-08] MEDS: IPRATROPIUM BROMIDE NEB SOLN 0.02% 2.5 ML VIAL INH SCH ×4 (01:51→19:06)
[2017-02-08] MEDS: SUCRALFATE 1 GM/10 ML UDC PO SCH ×4 (05:57→23:47)
[2017-02-08] MEDS: HEPARIN SOD 5000 UNIT/0.5 ML CARP SQ SCH ×3 (05:57→21:35)
[2017-02-08] MEDS: LEVOTHYROXINE 75 MCG TAB PO SCH (05:57)
[2017-02-08 06:32] LABS: HEMATOCRIT 37.6 % (37-47); MEAN CELL VOLUME 92.4 fL (80-100); MEAN CORPUSCULAR HEMOGLOBIN 29.5 pg (25-34); MEAN CORPUSCULAR HGB CONC 31.9 g/dl (32-36); MEAN PLATELET VOLUME 8.8 fL (7.4-10.4); PLATELET COUNT 456 K/uL (130-400); RED BLOOD COUNT 4.07 M/uL (4.2-5.4); WHITE BLOOD COUNT 15.07 K/uL (4.8-10.8)
[2017-02-08 07:10] LABS: CREATININE 1.5 mg/dl (0.60-1.20)
[2017-02-08] MEDS: CEFEPIME IV 2,000 MG in DEXTROSE 5% 100ML 100 ML IV SCH ×2 (07:37→21:56)
[2017-02-08] MEDS: ASPIRIN 81 MG ECTAB PO SCH (07:39)
[2017-02-08] MEDS: GABAPENTIN 300 MG CAP PO SCH ×3 (07:39→21:30)
[2017-02-08] MEDS: PAROXETINE 20 MG TAB PO SCH (07:39)
[2017-02-08] MEDS: PANTOprazole SOD 40 MG TAB PO SCH (07:40)
[2017-02-08] MEDS: LISINOPRIL 10 MG TAB PO SCH (07:41)
[2017-02-08] MEDS: AZITHROMYCIN 250 MG TAB PO SCH (07:41)
[2017-02-08] MEDS: VARENICLINE (CHANTIX) 1 MG TAB PO SCH ×2 (07:41→21:31)
[2017-02-08] MEDS: BusPIRone 15 MG TAB PO SCH ×2 (07:42→21:30)
[2017-02-08] MEDS: GUAIFENESIN 600 MG TABCR PO SCH ×2 (07:43→21:31)
[2017-02-08] MEDS: FLUTICASONE PROPIONATE NA SPR 16 GM BTL SCH (07:43)
[2017-02-08] MEDS: NYSTATIN SUSP 500,000 U/5 ML UDC PO SCH ×4 (07:43→21:32)
[2017-02-08] MEDS: XYZAL~ORDER AWAITING ACTION SCH ×2 (08:00)
[2017-02-08 08:03] LABS: BASO % 0.3 %; BASO ABS # 0.04 K/uL (0-0.2); COMPLETE YES; IG% 1.7 %; LYMPH % 15.3 %; LYMPH ABS # 2.31 K/uL (1.2-3.4); MONO % 6.2 %; NEUT % 76.5 %
[2017-02-08] MEDS: INSULIN ASPART 100 UNITS/ML 3 ML PEN SC SCH ×4 (08:37→21:00)
[2017-02-08] MEDS: INSULIN GLARGINE SOLOSTAR 100 UNITS/ML 3 ML PEN SC SCH ×2 (08:38→21:00)
[2017-02-08] MEDS: NICOTINE 21 MG/24 HR TDSY TD SCH (09:00)
--- NOTE | 2017-02-08 11:29 | Progress Note ---
Medicine Progress Note Date & Time of Visit: Feb 08, 2017 at 11:26. Subjective patient seen resting in bed, sitting up, reading the paper states she feels improved compared to yesterday denies shortness of breath still has cough, with yellow sputum no chest pain, dyspnea, palpitations no other symptoms Objective Last 8 Hrs Date Time Temp Pulse Resp B/P (MAP) Pulse Ox O2 Delivery O2 Flow Rate FiO2 02/08/17 11:00 Nasal Cannula 2.0 02/08/17 08:10 80 20 97 Nasal Cannula 2.0 02/08/17 07:55 Nasal Cannula 2.0 02/08/17 07:15 36.5 82 20 150/91 (110) 94 Nasal Cannula 2.0 02/08/17 04:20 Nasal Cannula 2.0 02/08/17 03:50 36.6 78 17 114/66 (82) 96 Nasal Cannula 2.0 Physical Exam: General- oriented x 3, not in distress, speaks in sentences with no effort Head- atraumatic Eyes- anicteric ENT- oropharynx clear Neck- supple, no JVD Lungs- very mild intermittent wheeze; (+) distant breath sounds Heart- regular rhythm; no murmur, no murmurs Abdomen- normal bowel sounds, soft, nontender Extremities- no pretibial edema, no calf tenderness Neuro- alert, oriented x 3; no gross focal deficits Skin- warm & dry Laboratory Results: Last 24 Hours Test 02/07/17 16:12 02/07/17 20:00 02/08/17 06:12 02/08/17 06:34 Bedside Glucose 124 mg/dl 126 mg/dl 143 mg/dl White Blood Count 15.07 K/uL Red Blood Count 4.07 M/uL Hemoglobin 12.0 g/dL Hematocrit 37.6 % Mean Corpuscular Volume 92.4 fL Mean Corpuscular Hemoglobin 29.5 pg Mean Corpuscular Hemoglobin Concent 31.9 g/dl Platelet Count 456 K/uL Mean Platelet Volume 8.8 fL Neutrophils (%) (Auto) 76.5 % Lymphocytes (%) (Auto) 15.3 % Monocytes (%) (Auto) 6.2 % Eosinophils (%) (Auto) 0.0 % Basophils (%) (Auto) 0.3 % Neutrophils # (Auto) 11.54 K/uL Lymphocytes # (Auto) 2.31 K/uL Monocytes # (Auto) 0.93 K/uL Eosinophils # (Auto) 0.00 K/uL Basophils # (Auto) 0.04 K/uL RDW Standard Deviation 48.7 fL RDW Coefficient of Variation 14.3 % Immature Granulocyte % (Auto) 1.7 % Immature Granulocyte # (Auto) 0.25 K/uL Creatinine 1.50 mg/dl Est Creatinine Clear Calc Drug Dose 42.7 ml/min Estimated GFR () 41.9 Estimated GFR (Non- 36.2 Date/Time Source Procedure Growth Status 02/07/17 16:20 Sputum Expectorated Sputum Gram Stain - Final Resulted 02/07/17 16:20 Sputum Expectorated Sputum Sputum Culture - Preliminary SCANT NORMAL MATTY Present, Final Rep... Resulted Assessment & Plan 66 year old female with history of COPD on home o2, Smoker, Chronic CHF, HTN, other problems noted below presenting with shortness of breath. 1. Acute on chronic hypoxemic respiratory failure 2/2 COPD exacerbation - likely from Acute Bronchitis - CXR: no pneumonia - was not improving on Doxycycline, Prednisone - started on Bipap, started Zosyn, Methylprednisolone IV improved, taken off bipap -- continues to gradually improve still on 2 liters o2 NC -- de escalated Zosyn to Cefepime day 2, added Azithromycin Day 2 for atypical coverage taper Solumedrol, Nebs q6h consulted Pulmonary, appreciate the input will upload PFTs done at [facility] in 11/2015 2. Oral Candidiasis -- received Fluconazole PO 1 dose 02/05/17 -- now on Nystatin -- improving -- Amytriptiline being weaned off 3. CKD-stage III -- stable 4. Chronic systolic heart failure -- euvolemic -- Cont lisinopril and ASA atenolol on hold 2/2 active wheezing. 5. Tobacco use -- Nicotine Patch 6. DM 2, new diagnosis -- A1C is 7.3 -- on ISS, Lantus Pharm on board -- will need oral agents on discharge DM educator 7. Hypothyroidism-TSH stable, cont home Synthroid 8. Anxiety-cont Buspar, decreasing Elavil as above. DVT proph-Heparin SQ Full Code Dispo pending PT/OT anticipate d/c home when medically stable Current Inpatient Medications: Current Inpatient Medications Medications (Trade) Dose Ordered Sig/Magdalene Route Start Time Stop Time Status Last Admin Dose Admin Acetaminophen (Tylenol Tab) 650 mg Q4H PRN PO 02/05/17 03:15 03/07/17 03:14 02/06/17 09:46 650 MG Aspirin (Ecotrin Tab) 81 mg DAILY PO 02/05/17 09:00 03/07/17 08:59 02/08/17 07:39 81 MG Atenolol (Tenormin Tab) 25 mg DAILY PO 02/05/17 09:00 03/07/17 08:59 Future Hold 02/05/17 09:04 25 MG Gabapentin (Neurontin Cap) 300 mg TID PO 02/05/17 09:00 03/07/17 08:59 02/08/17 07:39 300 MG Levothyroxine Sodium (Synthroid Tab) 75 mcg DAILYBB PO 02/05/17 06:30 03/07/17 06:29 02/08/17 05:57 75 MCG Nitroglycerin (Nitrostat Tab) 0.4 mg UD PRN UT 02/05/17 03:15 03/07/17 03:14 Pantoprazole Sodium (Protonix Tab) 40 mg QAM PO 02/05/17 09:00 03/07/17 08:59 02/08/17 07:40 40 MG Paroxetine HCl (pAXil TAB) 40 mg QAM PO 02/05/17 09:00 03/07/17 08:59 02/08/17 07:39 40 MG Ropinirole HCl (Requip Tab) 0.25 mg HS PO 02/05/17 21:00 03/07/17 20:59 02/07/17 20:26 0.25 MG Senna/Docusate Sodium (Senokot S Tab) 1 tab Q24H PRN PO 02/05/17 03:15 03/07/17 03:14 Sucralfate (Carafate Susp) 1 gm Q6H PO 02/05/17 06:00 03/07/17 05:59 02/08/17 05:57 1 GM Tramadol HCl (Ultram Tab) 50 mg Q8H PRN PO 02/05/17 03:15 03/07/17 03:14 Miscellaneous Information (Order Awaiting Action) 1 ea QS N/A 02/05/17 08:00 03/07/17 07:59 02/07/17 19:45 1 EA Buspirone HCl (BusPAR TAB) 30 mg BID PO 02/05/17 09:00 03/07/17 08:59 02/08/17 07:42 30 MG Miscellaneous Information (Order Awaiting Action) 1 ea QS N/A 02/05/17 08:00 03/07/17 07:59 02/07/17 19:45 1 EA Varenicline (Chantix) 1 mg BID PO 02/05/17 09:00 03/07/17 08:59 02/08/17 07:41 1 MG Ondansetron HCl (Zofran Inj) 4 mg Q6H PRN IV 02/05/17 03:15 03/07/17 03:14 Heparin Sodium (Porcine) (Heparin Sq 5000 Unit/0.5ml) 5,000 unit Q8 SQ 02/05/17 06:00 03/07/17 05:59 02/08/17 05:57 5,000 UNIT Glucose (Glucose 40% Gel) 15-30 GRAMS 15 GRAMS... UD PRN PO 02/05/17 06:15 03/07/17 06:14 Glucose (Glucose Chew Tab) 4-8 Tablets 4 Tabl... UD PRN PO 02/05/17 06:15 03/07/17 06:14 Dextrose (Dextrose 50% 50ML Syringe) 25-50ML OF 50% DW IV FOR... UD PRN IV 02/05/17 06:15 03/07/17 06:14 Glucagon (Glucagon Inj) 1 mg UD PRN SQ 02/05/17 06:15 03/07/17 06:14 Miscellaneous Information (Consult Glycemic Management Pharmacy) 1 ea UD PRN N/A 02/05/17 12:19 03/07/17 12:18 Lisinopril (Zestril Tab) 10 mg DAILY PO 02/06/17 09:00 03/08/17 08:59 02/08/17 07:41 10 MG Amitriptyline HCl (Elavil Tab) 25 mg HS PO 02/05/17 21:00 03/07/17 20:59 02/07/17 20:26 25 MG Nystatin (Mycostatin Susp) 5 ml QID PO 02/05/17 21:00 6/26/17 20:59 02/08/17 07:43 5 ML Menthol (Nice Ashley) 1 ashley PRN PRN PO 02/06/17 06:00 03/08/17 05:59 Ipratropium [place] (Atrovent 0.02% 0.5MG/2.5ML Neb) 0.5 mg Q6R INH 02/06/17 09:00 03/08/17 08:59 02/08/17 08:36 0.5 MG Levalbuterol (Xopenex 1.25MG/ 0.5ML Neb) 1.25 mg Q6R INH 02/06/17 09:00 03/08/17 08:59 02/08/17 08:36 1.25 MG Methylprednisolone Sodium Succinate 40 mg/Syringe 0.64 ml @ 1.5 mls/min Q8H IV 02/06/17 09:30 03/08/17 09:29 02/08/17 07:38 1.5 MLS/MIN Insulin Glargine (Lantus Solostar Pen) SEE PROTOCOL TEXT HS SC 02/06/17 21:00 03/08/17 20:59 02/07/17 20:28 5 UNIT Insulin Glargine (Lantus Solostar Pen) 8 unit QAM SC 02/06/17 09:30 03/08/17 09:29 02/08/17 08:38 8 UNIT Alprazolam (Xanax Tab) 0.5 mg Q6H PRN PO 02/06/17 11:15 03/08/17 11:14 02/06/17 11:36 0.5 MG Levalbuterol (Xopenex 1.25MG/ 3ML Neb) 1.25 mg Q2H PRN INH 02/06/17 11:30 03/08/17 11:29 02/06/17 11:45 1.25 MG Nicotine (Nicoderm Cq 21MG Patch) 1 patch QAM TD 02/07/17 09:00 03/09/17 08:59 02/07/17 08:02 1 PATCH Miscellaneous (Remove Nicoderm Patch) 1 ea HS N/A 02/06/17 21:00 03/08/17 20:59 02/07/17 20:22 1 EA Guaifenesin (Mucinex Contr Rel Tab) 600 mg Q12 PO 02/07/17 09:00 03/09/17 08:59 02/08/17 07:43 600 MG Benzonatate (Tessalon Perles Cap) 100 mg Q8H PRN PO 02/07/17 01:15 03/09/17 01:14 02/07/17 08:03 100 MG Fluticasone Propionate (Flonase Nasal [place]) 2 sprays DAILY NA 02/07/17 10:00 03/09/17 09:59 02/08/17 07:43 2 SPRAYS Azithromycin (Zithromax Tab) 250 mg QAM PO 02/08/17 09:00 02/15/17 08:59 02/08/17 07:41 250 MG Cefepime HCl 2000 mg/Dextrose 112.5 ml @ 200 mls/hr Q12H IV 02/07/17 10:00 02/14/17 09:59 02/08/17 07:37 200 MLS/HR Insulin Aspart (novoLOG ASPART) SLIDING SCALE If C... ACHS SC 02/07/17 21:00 03/09/17 20:59 02/08/17 08:37 8 UNITS
--- NOTE | 2017-02-08 13:38 | Pharmacy Progress Note ---
Glycemic: Assessment & Plan Date of Service Feb 08, 2017. Assessment & Plan The patient is currently receiving 29 units of insulin per day. BSGs ranging 120 - 143 mg/dl over the past 24hrs. * Basal insulin: Lantus 8 units every AM, 5 or 10 units qPM based on BSG * Correctional Insulin: Novolog Correction per scale ACHS Goal Range: Low 110 mg/dL - High 140 mg/dL Correction Factor: 20 mg/dL/unit * Prandial insulin: Per carb ratio of 1 unit per 7 grams CHO consumed ASSESSMENT: * Steroids decreased today from q8h -> q12h * BSG already within goal and expect to decrease if current insulin regimen continued * Will plan to decrease PM Lantus dose and loosen the prandial coverage to prevent hypoglycemia PLAN FOR INPATIENT GLYCEMIC CONTROL: * Continue Lantus 8 units qAM * Decrease Lantus to 0 or 5 units qPM, based upon BSG * Continue CF 20 * Loosen CR to 10 Pharmacy will continue to monitor patient daily and write orders per [facility] inpatient glycemic control protocol. Thanks. * Please note that the plan above was derived based on current level of insulin resistance and hospital stress. These recommendations are appropriate for inpatient admission only. Plan of care upon discharge will need to be reassessed to avoid potential outpatient hypo/hyperglycemia.
[2017-02-08] MEDS: BENZONATATE 100MG CAP PO PRN (14:25)
--- NOTE | 2017-02-08 14:26 | Pulmonology Progress Note ---
Pulmonary Progress Note Date of Service Feb 08, 2017. Attending Dr. Rivera Subjective Continues to cough - increased post nebulizer. Difficult to expectorate without great effort. Sputum may be yellow-green with speck of blood. Continued wheeze. Overall states she feels "100%" better than on admission. Objective 66-yo female admitted through the [facility] ER 02/05/17 with symptoms of dyspnea, pharyngitis, fevers, and bronchitis. Prior records were reviewed. PMHx includes: O2-dependent COPD, diastolic HF, hypothyroid, h/o respiratory failure requiring MV and tracheostomy (2013), macular degeneration, thrush, CKK III, HTN. h/o 44-year tobacco - quit 12/2016 currently on Chantix Patient presented to the ER 02/04/17 with symptoms of cough productive of yellow- green, fevers and dyspnea. WBC: 24.29 - in the setting of previous steroid use. Hgb/Hct: 13.6/40.7, plts: 409. Cr: 1.4. Lactic acid: 2.66. ABG 7.43/32/70-2LPM /21. CXR consistent with pulmonary emphysema and scattered chronic interstitial densities. EKG: sinus tachycardia and ST-depression in lateral leads. Patient was treated with doxycycline, scheduled bronchodilators, and PO steroid with marginal improvement then transitioned to pip-tazo, BiPAP, IV methylprednisolone with improvement then de-escalation to cefepime and azithromycin. CXR 02/06/17: changes consistent with emphysema. No change from prior exam. Sputum culture: normal trixie. Today: - O2: - 95-97%: 2LPM - WBC: 14.07, Hgb/Hct: 12/37.6, plts: 456 - Cr: 1.5 - Day #2 azithromycin + cefepime - IV methylprednisolone decreased to 80mg / day (40 BID) Physical Exam: Constitutional: WDWN obese elderly female lying in hospital bed but moving about the bed without difficulty Head: + facial symmetry Eyes: EOMi, PERRLA, glasses in place Mouth: Dentures. No erythema or exudate. Mallampati I but small posterior pharyngeal opening Respiratory: Cough intermittent post nebulizer. Bilateral end-expiratory wheeze. No Rhonchi. CV: RRR, no MRG. Warm and perfused peripherally MSK/Extremities: Moving and developed symmetrically. Strength in-tact Neurologic: A&O. Good data recall. Appropriate affect. Assessment & Plan 66-yo female admitted with hypoxic exacerbation of COPD. 1. Symptomatically improving on current regimen - would continue BID dosing of methylprednisone (80mg total) given persistent bronchospasm on exam today through 02/10 2. Will add bedside- IS and flutter valve with focus 3. Will continue to follow-along. Patient reviewed and plan agreed with. Data Medications: Current Inpatient Medications Medications (Trade) Dose Ordered Sig/Magdalene Route Start Time Stop Time Status Last Admin Dose Admin Acetaminophen (Tylenol Tab) 650 mg Q4H PRN PO 02/05/17 03:15 03/07/17 03:14 02/06/17 09:46 650 MG Aspirin (Ecotrin Tab) 81 mg DAILY PO 02/05/17 09:00 03/07/17 08:59 02/08/17 07:39 81 MG Atenolol (Tenormin Tab) 25 mg DAILY PO 02/05/17 09:00 03/07/17 08:59 Future Hold 02/05/17 09:04 25 MG Gabapentin (Neurontin Cap) 300 mg TID PO 02/05/17 09:00 03/07/17 08:59 02/08/17 07:39 300 MG Levothyroxine Sodium (Synthroid Tab) 75 mcg DAILYBB PO 02/05/17 06:30 03/07/17 06:29 02/08/17 05:57 75 MCG Nitroglycerin (Nitrostat Tab) 0.4 mg UD PRN UT 02/05/17 03:15 03/07/17 03:14 Pantoprazole Sodium (Protonix Tab) 40 mg QAM PO 02/05/17 09:00 03/07/17 08:59 02/08/17 07:40 40 MG Paroxetine HCl (pAXil TAB) 40 mg QAM PO 02/05/17 09:00 03/07/17 08:59 02/08/17 07:39 40 MG Ropinirole HCl (Requip Tab) 0.25 mg HS PO 02/05/17 21:00 03/07/17 20:59 02/07/17 20:26 0.25 MG Senna/Docusate Sodium (Senokot S Tab) 1 tab Q24H PRN PO 02/05/17 03:15 03/07/17 03:14 Sucralfate (Carafate Susp) 1 gm Q6H PO 02/05/17 06:00 03/07/17 05:59 02/08/17 12:41 1 GM Tramadol HCl (Ultram Tab) 50 mg Q8H PRN PO 02/05/17 03:15 03/07/17 03:14 Miscellaneous Information (Order Awaiting Action) 1 ea QS N/A 02/05/17 08:00 03/07/17 07:59 02/07/17 19:45 1 EA Buspirone HCl (BusPAR TAB) 30 mg BID PO 02/05/17 09:00 03/07/17 08:59 02/08/17 07:42 30 MG Miscellaneous Information (Order Awaiting Action) 1 ea QS N/A 02/05/17 08:00 03/07/17 07:59 02/07/17 19:45 1 EA Varenicline (Chantix) 1 mg BID PO 02/05/17 09:00 03/07/17 08:59 02/08/17 07:41 1 MG Ondansetron HCl (Zofran Inj) 4 mg Q6H PRN IV 02/05/17 03:15 03/07/17 03:14 Heparin Sodium (Porcine) (Heparin Sq 5000 Unit/0.5ml) 5,000 unit Q8 SQ 02/05/17 06:00 03/07/17 05:59 02/08/17 05:57 5,000 UNIT Glucose (Glucose 40% Gel) 15-30 GRAMS 15 GRAMS... UD PRN PO 02/05/17 06:15 03/07/17 06:14 Glucose (Glucose Chew Tab) 4-8 Tablets 4 Tabl... UD PRN PO 02/05/17 06:15 03/07/17 06:14 Dextrose (Dextrose 50% 50ML Syringe) 25-50ML OF 50% DW IV FOR... UD PRN IV 02/05/17 06:15 03/07/17 06:14 Glucagon (Glucagon Inj) 1 mg UD PRN SQ 02/05/17 06:15 03/07/17 06:14 Miscellaneous Information (Consult Glycemic Management Pharmacy) 1 ea UD PRN N/A 02/05/17 12:19 03/07/17 12:18 Lisinopril (Zestril Tab) 10 mg DAILY PO 02/06/17 09:00 03/08/17 08:59 02/08/17 07:41 10 MG Amitriptyline HCl (Elavil Tab) 25 mg HS PO 02/05/17 21:00 03/07/17 20:59 02/07/17 20:26 25 MG Nystatin (Mycostatin Susp) 5 ml QID PO 02/05/17 21:00 02/15/17 20:59 02/08/17 12:42 5 ML Menthol (Nice Adan) 1 adan PRN PRN PO 02/06/17 06:00 03/08/17 05:59 Ipratropium [place] (Atrovent 0.02% 0.5MG/2.5ML Neb) 0.5 mg Q6R INH 02/06/17 09:00 03/08/17 08:59 02/08/17 08:36 0.5 MG Levalbuterol (Xopenex 1.25MG/ 0.5ML Neb) 1.25 mg Q6R INH 02/06/17 09:00 03/08/17 08:59 02/08/17 08:36 1.25 MG Insulin Glargine (Lantus Solostar Pen) SEE PROTOCOL TEXT HS SC 02/06/17 21:00 03/08/17 20:59 02/07/17 20:28 5 UNIT Insulin Glargine (Lantus Solostar Pen) 8 unit QAM SC 02/06/17 09:30 03/08/17 09:29 02/08/17 08:38 8 UNIT Alprazolam (Xanax Tab) 0.5 mg Q6H PRN PO 02/06/17 11:15 03/08/17 11:14 02/06/17 11:36 0.5 MG Levalbuterol (Xopenex 1.25MG/ 3ML Neb) 1.25 mg Q2H PRN INH 02/06/17 11:30 03/08/17 11:29 02/06/17 11:45 1.25 MG Nicotine (Nicoderm Cq 21MG Patch) 1 patch QAM TD 02/07/17 09:00 03/09/17 08:59 02/07/17 08:02 1 PATCH Miscellaneous (Remove Nicoderm Patch) 1 ea HS N/A 02/06/17 21:00 03/08/17 20:59 02/07/17 20:22 1 EA Guaifenesin (Mucinex Contr Rel Tab) 600 mg Q12 PO 02/07/17 09:00 03/09/17 08:59 02/08/17 07:43 600 MG Benzonatate (Tessalon Perles Cap) 100 mg Q8H PRN PO 02/07/17 01:15 03/09/17 01:14 02/07/17 08:03 100 MG Fluticasone Propionate (Flonase Nasal [place]) 2 sprays DAILY NA 02/07/17 10:00 03/09/17 09:59 02/08/17 07:43 2 SPRAYS Azithromycin (Zithromax Tab) 250 mg QAM PO 02/08/17 09:00 02/15/17 08:59 02/08/17 07:41 250 MG Cefepime HCl 2000 mg/Dextrose 112.5 ml @ 200 mls/hr Q12H IV 02/07/17 10:00 02/14/17 09:59 02/08/17 07:37 200 MLS/HR Insulin Aspart (novoLOG ASPART) SLIDING SCALE If C... ACHS SC 02/07/17 21:00 03/09/17 20:59 02/08/17 12:43 4 UNITS Methylprednisolone Sodium Succinate 40 mg/Syringe 0.64 ml @ 1.5 mls/min Q12H IV 02/08/17 21:30 03/08/17 09:29 Vital Signs: Date Time Temp Pulse Resp B/P (MAP) Pulse Ox O2 Delivery O2 Flow Rate FiO2 02/08/17 14:10 36.5 84 20 156/86 (109) 96 Nasal Cannula 2.0 02/08/17 12:48 36.5 82 18 95 2.0 02/08/17 12:20 36.5 82 18 117/75 (89) 95 Nasal Cannula 02/08/17 11:00 Nasal Cannula 2.0 02/08/17 08:10 80 20 97 Nasal Cannula 2.0 02/08/17 07:55 Nasal Cannula 2.0 02/08/17 07:15 36.5 82 20 150/91 (110) 94 Nasal Cannula 2.0 02/08/17 04:20 Nasal Cannula 2.0 02/08/17 03:50 36.6 78 17 114/66 (82) 96 Nasal Cannula 2.0 02/08/17 01:51 88 18 98 Nasal Cannula 2.0 02/08/17 00:11 Nasal Cannula 2.0 02/07/17 23:30 36.8 87 21 125/74 (91) 94 Nasal Cannula 2.0 02/07/17 20:35 Nasal Cannula 2.0 02/07/17 19:39 87 18 96 Nasal Cannula 2.0 02/07/17 19:06 36.4 81 24 113/64 (80) 96 Nasal Cannula 2.0 02/07/17 16:01 36.4 85 26 115/84 (94) 91 Nasal Cannula 2.0 02/07/17 16:00 Nasal Cannula 2.0 Laboratory Results: Last 24 Hours Test 02/07/17 16:12 02/07/17 20:00 02/08/17 06:12 02/08/17 06:34 Bedside Glucose 124 mg/dl 126 mg/dl 143 mg/dl White Blood Count 15.07 K/uL Red Blood Count 4.07 M/uL Hemoglobin 12.0 g/dL Hematocrit 37.6 % Mean Corpuscular Volume 92.4 fL Mean Corpuscular Hemoglobin 29.5 pg Mean Corpuscular Hemoglobin Concent 31.9 g/dl Platelet Count 456 K/uL Mean Platelet Volume 8.8 fL Neutrophils (%) (Auto) 76.5 % Lymphocytes (%) (Auto) 15.3 % Monocytes (%) (Auto) 6.2 % Eosinophils (%) (Auto) 0.0 % Basophils (%) (Auto) 0.3 % Neutrophils # (Auto) 11.54 K/uL Lymphocytes # (Auto) 2.31 K/uL Monocytes # (Auto) 0.93 K/uL Eosinophils # (Auto) 0.00 K/uL Basophils # (Auto) 0.04 K/uL RDW Standard Deviation 48.7 fL RDW Coefficient of Variation 14.3 % Immature Granulocyte % (Auto) 1.7 % Immature Granulocyte # (Auto) 0.25 K/uL Creatinine 1.50 mg/dl Est Creatinine Clear Calc Drug Dose 42.7 ml/min Estimated GFR () 41.9 Estimated GFR (Non- 36.2 Test 02/08/17 11:42 Bedside Glucose 120 mg/dl
[2017-02-08] MEDS: AMITRIPTYLINE HCL 25 MG TAB PO SCH (21:31)
[2017-02-08] MEDS: ROPINIROLE HCL 0.25 MG TAB PO SCH (21:31)
[2017-02-09] VITALS (8 sets, daily range): BP systolic 114–122; BP diastolic 68–84; PULSE 71–91; TEMP 36.6–36.9; O2SAT 94–98
[2017-02-09] MEDS: LEVALBUTEROL 1.25MG/0.5ML NEB INH SCH ×4 (01:59→19:17)
[2017-02-09] MEDS: IPRATROPIUM BROMIDE NEB SOLN 0.02% 2.5 ML VIAL INH SCH ×4 (01:59→19:17)
[2017-02-09] MEDS: HEPARIN SOD 5000 UNIT/0.5 ML CARP SQ SCH ×3 (05:42→21:36)
[2017-02-09] MEDS: LEVOTHYROXINE 75 MCG TAB PO SCH (05:43)
[2017-02-09] MEDS: SUCRALFATE 1 GM/10 ML UDC PO SCH ×4 (05:44→23:46)
--- NOTE | 2017-02-09 07:05 | Clinical Documentation Query ---
CLINICAL DOCUMENTATION QUERY Query #1/2 66 year old female with hx of COPD and chronic respiratory failure who presents with SOB. H&P has stated this patient presented with sepsis but unfortunately this documentation has fallen off the record. Unless it is restated on DC summary this diagnosis may not be coded and its associated severity of illness may be lost. In your clinical opinion is this patient being managed for: ( ) Sepsis POA evidenced by reported fever, tachycardia, tachypnea, hypotension, and leukocytosis treated and resolved ( ) Sepsis ruled out Query #2/2 Acute on chronic respiratory failure was documented on H&P. Since that time this diagnosis has fallen off the record. In your clinical opinion is this patient being managed for: ( ) Acute and chronic respiratory failure in setting of CAP and COPD exacerbation treated and resolved on admission. ( ) Acute on chronic respiratory failure ruled out Please clarify and document your clinical opinion in the progress notes and discharge summary. Terms such as "probable", "suspected", "likely", "questionable", "possible", or "still to be ruled out" are acceptable. IF IN AGREEMENT, YOU MUST DOCUMENT ABOVE DIAGNOSTIC STATEMENT IN DAILY PROGRESS NOTES AND DISCHARGE SUMMARY. This document is not part of the patient's record. Thank You, Hernandez Centeno, RN [phone]
[2017-02-09] MEDS: GABAPENTIN 300 MG CAP PO SCH ×3 (07:46→21:00)
[2017-02-09] MEDS: ASPIRIN 81 MG ECTAB PO SCH (07:46)
[2017-02-09] MEDS: METHYLPREDNISOLONE IV 40 MG in SYRINGE 0 ML IV SCH ×2 (07:46→21:30)
[2017-02-09] MEDS: GUAIFENESIN 600 MG TABCR PO SCH ×2 (07:47→21:00)
[2017-02-09] MEDS: NICOTINE 21 MG/24 HR TDSY TD SCH (07:47)
[2017-02-09] MEDS: PAROXETINE 20 MG TAB PO SCH (07:47)
[2017-02-09] MEDS: NYSTATIN SUSP 500,000 U/5 ML UDC PO SCH ×4 (07:47→21:00)
[2017-02-09] MEDS: BusPIRone 15 MG TAB PO SCH ×2 (07:48→21:00)
[2017-02-09] MEDS: VARENICLINE (CHANTIX) 1 MG TAB PO SCH ×2 (07:48→21:00)
[2017-02-09] MEDS: LISINOPRIL 10 MG TAB PO SCH (07:48)
[2017-02-09] MEDS: PANTOprazole SOD 40 MG TAB PO SCH (07:48)
[2017-02-09] MEDS: AZITHROMYCIN 250 MG TAB PO SCH (07:49)
[2017-02-09] MEDS: XYZAL~ORDER AWAITING ACTION SCH ×4 (07:50→23:04)
[2017-02-09] MEDS: FLUTICASONE PROPIONATE NA SPR 16 GM BTL SCH (07:50)
[2017-02-09] MEDS: INSULIN ASPART 100 UNITS/ML 3 ML PEN SC SCH ×4 (07:55→21:00)
[2017-02-09] MEDS: INSULIN GLARGINE SOLOSTAR 100 UNITS/ML 3 ML PEN SC SCH ×2 (07:57→21:00)
[2017-02-09] MEDS: CEFEPIME IV 2,000 MG in DEXTROSE 5% 100ML 100 ML IV SCH ×2 (10:05→21:30)
--- NOTE | 2017-02-09 14:33 | Pharmacy Progress Note ---
Glycemic: Assessment & Plan Date of Service Feb 09, 2017. Assessment & Plan The patient is currently receiving 25 units of insulin per day. BSGs ranging 117 - 179 mg/dl over the past 24hrs. * Basal insulin: Lantus 8 units every AM, 0 or 5 units every PM * Correctional Insulin: Novolog Correction per scale ACHS Goal Range: Low 110 mg/dL - High 140 mg/dL Correction Factor: 20 mg/dL/unit * Prandial insulin: Per carb ratio of 1 unit per 10 grams CHO consumed ASSESSMENT: 02/08/17 * Steroids decreased today from q8h -> q12h * BSG already within goal and expect to decrease if current insulin regimen continued * Will plan to decrease PM Lantus dose and loosen the prandial coverage to prevent hypoglycemia 02/09/17 * Changes made yesterday may have been too much since BSGs are now slightly above goal * With the steroids on board still, will adjust the carb ratio since steroids mainly affect postprandial BSGs PLAN FOR INPATIENT GLYCEMIC CONTROL: * Continue Lantus 8 units qAM * Continue Lantus to 0 or 5 units qPM, based upon BSG * Continue CF 20 * Tighten CR back to 7 Pharmacy will continue to monitor patient daily and write orders per [facility] inpatient glycemic control protocol. Thanks. * Please note that the plan above was derived based on current level of insulin resistance and hospital stress. These recommendations are appropriate for inpatient admission only. Plan of care upon discharge will need to be reassessed to avoid potential outpatient hypo/hyperglycemia.
[2017-02-09] MEDS: TRAMADOL HCL 50 MG TAB PO PRN (18:31)
--- NOTE | 2017-02-09 18:38 | Pulmonology Progress Note ---
Pulmonary Progress Note Date of Service Feb 09, 2017. Attending Dr. Alicia Subjective Still mildly short of breath Tolerating her diet Objective general: NAD, AAO x 3, obese Lungs: Diminished breath sounds, faint wheezes CVS:S1S2 reg Ext: no edema Assessment & Plan 66-yo female admitted with hypoxic exacerbation of COPD. Continue Solumedrol, on 40 mg bid, bronchodilators, guaifenesin May ambulate DT prophylaxis: SC heparin Data Medications: Current Inpatient Medications Medications (Trade) Dose Ordered Sig/Magdalene Route Start Time Stop Time Status Last Admin Dose Admin Acetaminophen (Tylenol Tab) 650 mg Q4H PRN PO 02/05/17 03:15 03/07/17 03:14 02/06/17 09:46 650 MG Aspirin (Ecotrin Tab) 81 mg DAILY PO 02/05/17 09:00 03/07/17 08:59 02/09/17 07:46 81 MG Atenolol (Tenormin Tab) 25 mg DAILY PO 02/05/17 09:00 03/07/17 08:59 Future Hold 02/05/17 09:04 25 MG Gabapentin (Neurontin Cap) 300 mg TID PO 02/05/17 09:00 03/07/17 08:59 02/09/17 13:24 300 MG Levothyroxine Sodium (Synthroid Tab) 75 mcg DAILYBB PO 02/05/17 06:30 03/07/17 06:29 02/09/17 05:43 75 MCG Nitroglycerin (Nitrostat Tab) 0.4 mg UD PRN UT 02/05/17 03:15 03/07/17 03:14 Pantoprazole Sodium (Protonix Tab) 40 mg QAM PO 02/05/17 09:00 03/07/17 08:59 02/09/17 07:48 40 MG Paroxetine HCl (pAXil TAB) 40 mg QAM PO 02/05/17 09:00 03/07/17 08:59 02/09/17 07:47 40 MG Ropinirole HCl (Requip Tab) 0.25 mg HS PO 02/05/17 21:00 03/07/17 20:59 02/08/17 21:31 0.25 MG Senna/Docusate Sodium (Senokot S Tab) 1 tab Q24H PRN PO 02/05/17 03:15 03/07/17 03:14 Sucralfate (Carafate Susp) 1 gm Q6H PO 02/05/17 06:00 03/07/17 05:59 02/09/17 17:23 1 GM Tramadol HCl (Ultram Tab) 50 mg Q8H PRN PO 02/05/17 03:15 03/07/17 03:14 02/09/17 18:31 50 MG Miscellaneous Information (Order Awaiting Action) 1 ea QS N/A 02/05/17 08:00 03/07/17 07:59 02/07/17 19:45 1 EA Buspirone HCl (BusPAR TAB) 30 mg BID PO 02/05/17 09:00 03/07/17 08:59 02/09/17 07:48 30 MG Miscellaneous Information (Order Awaiting Action) 1 ea QS N/A 02/05/17 08:00 03/07/17 07:59 02/07/17 19:45 1 EA Varenicline (Chantix) 1 mg BID PO 02/05/17 09:00 03/07/17 08:59 02/09/17 07:48 1 MG Ondansetron HCl (Zofran Inj) 4 mg Q6H PRN IV 02/05/17 03:15 03/07/17 03:14 Heparin Sodium (Porcine) (Heparin Sq 5000 Unit/0.5ml) 5,000 unit Q8 SQ 02/05/17 06:00 03/07/17 05:59 02/09/17 13:25 5,000 UNIT Glucose (Glucose 40% Gel) 15-30 GRAMS 15 GRAMS... UD PRN PO 02/05/17 06:15 03/07/17 06:14 Glucose (Glucose Chew Tab) 4-8 Tablets 4 Tabl... UD PRN PO 02/05/17 06:15 03/07/17 06:14 Dextrose (Dextrose 50% 50ML Syringe) 25-50ML OF 50% DW IV FOR... UD PRN IV 02/05/17 06:15 03/07/17 06:14 Glucagon (Glucagon Inj) 1 mg UD PRN SQ 02/05/17 06:15 03/07/17 06:14 Miscellaneous Information (Consult Glycemic Management Pharmacy) 1 ea UD PRN N/A 02/05/17 12:19 03/07/17 12:18 Lisinopril (Zestril Tab) 10 mg DAILY PO 02/06/17 09:00 03/08/17 08:59 02/09/17 07:48 10 MG Amitriptyline HCl (Elavil Tab) 25 mg HS PO 02/05/17 21:00 03/07/17 20:59 02/08/17 21:31 25 MG Nystatin (Mycostatin Susp) 5 ml QID PO 02/05/17 21:00 02/15/17 20:59 02/09/17 17:23 5 ML Menthol (Nice Adan) 1 adan PRN PRN PO 02/06/17 06:00 03/08/17 05:59 Ipratropium [place] (Atrovent 0.02% 0.5MG/2.5ML Neb) 0.5 mg Q6R INH 02/06/17 09:00 03/08/17 08:59 02/09/17 14:13 0.5 MG Levalbuterol (Xopenex 1.25MG/ 0.5ML Neb) 1.25 mg Q6R INH 02/06/17 09:00 03/08/17 08:59 02/09/17 14:13 1.25 MG Insulin Glargine (Lantus Solostar Pen) SEE PROTOCOL TEXT HS SC 02/06/17 21:00 03/08/17 20:59 02/07/17 20:28 5 UNIT Insulin Glargine (Lantus Solostar Pen) 8 unit QAM SC 02/06/17 09:30 03/08/17 09:29 02/09/17 07:57 8 UNIT Alprazolam (Xanax Tab) 0.5 mg Q6H PRN PO 02/06/17 11:15 03/08/17 11:14 02/06/17 11:36 0.5 MG Levalbuterol (Xopenex 1.25MG/ 3ML Neb) 1.25 mg Q2H PRN INH 02/06/17 11:30 03/08/17 11:29 02/06/17 11:45 1.25 MG Nicotine (Nicoderm Cq 21MG Patch) 1 patch QAM TD 02/07/17 09:00 03/09/17 08:59 6/18/17 08:02 1 PATCH Miscellaneous (Remove Nicoderm Patch) 1 ea HS N/A 02/06/17 21:00 03/08/17 20:59 02/07/17 20:22 1 EA Guaifenesin (Mucinex Contr Rel Tab) 600 mg Q12 PO 02/07/17 09:00 03/09/17 08:59 02/09/17 07:47 600 MG Benzonatate (Tessalon Perles Cap) 100 mg Q8H PRN PO 02/07/17 01:15 03/09/17 01:14 02/08/17 14:25 100 MG Fluticasone Propionate (Flonase Nasal [place]) 2 sprays DAILY NA 02/07/17 10:00 03/09/17 09:59 02/09/17 07:50 2 SPRAYS Azithromycin (Zithromax Tab) 250 mg QAM PO 02/08/17 09:00 02/15/17 08:59 02/09/17 07:49 250 MG Cefepime HCl 2000 mg/Dextrose 112.5 ml @ 200 mls/hr Q12H IV 02/07/17 10:00 02/14/17 09:59 02/09/17 10:05 200 MLS/HR Insulin Aspart (novoLOG ASPART) SLIDING SCALE If C... ACHS SC 02/07/17 21:00 03/09/17 20:59 02/09/17 17:28 4 UNITS Methylprednisolone Sodium Succinate 40 mg/Syringe 0.64 ml @ 1.5 mls/min Q12H IV 02/08/17 21:30 03/08/17 09:29 02/09/17 07:46 1.5 MLS/MIN Vital Signs: Date Time Temp Pulse Resp B/P (MAP) Pulse Ox O2 Delivery O2 Flow Rate FiO2 02/09/17 15:30 Nasal Cannula 2.0 02/09/17 15:29 36.9 87 16 122/72 (89) 94 02/09/17 14:15 91 18 98 Nasal Cannula 2.0 02/09/17 14:10 85 96 02/09/17 08:00 Nasal Cannula 2.0 02/09/17 07:51 36.6 71 18 114/68 (83) 94 Nasal Cannula 2.0 02/09/17 07:25 78 18 97 Nasal Cannula 2.0 02/09/17 01:59 81 18 97 Nasal Cannula 2.0 02/09/17 00:00 Nasal Cannula 2.0 02/08/17 23:17 36.5 75 18 125/77 (93) 96 Nasal Cannula 2.0 02/08/17 19:06 88 18 95 Nasal Cannula 2.0 Laboratory Results: Last 24 Hours Test 02/08/17 20:08 02/09/17 07:39 02/09/17 10:49 02/09/17 15:41 Bedside Glucose 131 mg/dl 161 mg/dl 179 mg/dl 121 mg/dl
--- NOTE | 2017-02-09 19:05 | Progress Note ---
Medicine Progress Note Date & Time of Visit: Feb 09, 2017 at 17:14. Subjective patient seen resting in bed states breathing has been improving less cough denies chest pain, dizziness, palpitations has some left thigh pain after walking, patient reports intermittent episodes of this for yearss denies other symptoms Objective Last 8 Hrs Date Time Temp Pulse Resp B/P (MAP) Pulse Ox O2 Delivery O2 Flow Rate FiO2 02/09/17 15:30 Nasal Cannula 2.0 02/09/17 15:29 36.9 87 16 122/72 (89) 94 02/09/17 14:15 91 18 98 Nasal Cannula 2.0 02/09/17 14:10 85 96 Physical Exam: General- oriented x 3, not in distress, speaks in sentences with no effort Eyes- anicteric Neck- no JVD Lungs- (+) distant breath sounds, clear breath sounds bilaterally, no wheezing/ rales Heart- regular rhythm; no murmur, no murmurs Abdomen- normal bowel sounds, soft, nontender Extremities- no pretibial edema, no calf tenderness left thigh: no edema/erythema/warmth/tenderness Neuro- alert, oriented x 3; no gross focal deficits Skin- warm & dry Laboratory Results: Last 24 Hours Test 02/08/17 20:08 02/09/17 07:39 02/09/17 10:49 02/09/17 15:41 Bedside Glucose 131 mg/dl 161 mg/dl 179 mg/dl 121 mg/dl Assessment & Plan 66 year old female with history of COPD on home o2, Smoker, Chronic CHF, HTN, other problems noted below presenting with shortness of breath. 1. Acute on chronic hypoxemic respiratory failure 2/2 COPD exacerbation - likely from Acute Bronchitis - CXR: no pneumonia - was not improving on Doxycycline, Prednisone - started on Bipap, started Zosyn, Methylprednisolone IV improved, taken off bipap -- continues to gradually improve still on 2 liters o2 NC -- de escalated Zosyn to Cefepime day 3, added Azithromycin Day 3 for atypical coverage taper Solumedrol, Nebs q6h consulted Pulmonary, appreciate the input 2. Oral Candidiasis -- received Fluconazole PO 1 dose 02/05/17 -- now on Nystatin -- improving -- Amytriptiline being weaned off 3. CKD-stage III -- stable 4. Chronic systolic heart failure -- euvolemic -- Cont lisinopril and ASA atenolol on hold secondary to active wheezing. 5. Tobacco use -- Nicotine Patch 6. DM 2, new diagnosis -- A1C is 7.3 -- on ISS, [facility] on board -- will need oral agents on discharge DM educator 7. Hypothyroidism-TSH stable, cont home Synthroid 8. Anxiety-cont Buspar, decreasing Elavil as above. DVT proph-Heparin SQ Full Code Dispo pending PT/OT anticipate d/c home when medically stable Current Inpatient Medications: Current Inpatient Medications Medications (Trade) Dose Ordered Sig/Magdalene Route Start Time Stop Time Status Last Admin Dose Admin Acetaminophen (Tylenol Tab) 650 mg Q4H PRN PO 02/05/17 03:15 03/07/17 03:14 02/06/17 09:46 650 MG Aspirin (Ecotrin Tab) 81 mg DAILY PO 02/05/17 09:00 03/07/17 08:59 02/09/17 07:46 81 MG Atenolol (Tenormin Tab) 25 mg DAILY PO 02/05/17 09:00 03/07/17 08:59 Future Hold 02/05/17 09:04 25 MG Gabapentin (Neurontin Cap) 300 mg TID PO 02/05/17 09:00 03/07/17 08:59 02/09/17 13:24 300 MG Levothyroxine Sodium (Synthroid Tab) 75 mcg DAILYBB PO 02/05/17 06:30 03/07/17 06:29 02/09/17 05:43 75 MCG Nitroglycerin (Nitrostat Tab) 0.4 mg UD PRN UT 02/05/17 03:15 03/07/17 03:14 Pantoprazole Sodium (Protonix Tab) 40 mg QAM PO 02/05/17 09:00 03/07/17 08:59 02/09/17 07:48 40 MG Paroxetine HCl (pAXil TAB) 40 mg QAM PO 02/05/17 09:00 03/07/17 08:59 02/09/17 07:47 40 MG Ropinirole HCl (Requip Tab) 0.25 mg HS PO 02/05/17 21:00 03/07/17 20:59 02/08/17 21:31 0.25 MG Senna/Docusate Sodium (Senokot S Tab) 1 tab Q24H PRN PO 02/05/17 03:15 03/07/17 03:14 Sucralfate (Carafate Susp) 1 gm Q6H PO 02/05/17 06:00 03/07/17 05:59 02/09/17 11:14 1 GM Tramadol HCl (Ultram Tab) 50 mg Q8H PRN PO 02/05/17 03:15 03/07/17 03:14 Miscellaneous Information (Order Awaiting Action) 1 ea QS N/A 02/05/17 08:00 03/07/17 07:59 02/07/17 19:45 1 EA Buspirone HCl (BusPAR TAB) 30 mg BID PO 02/05/17 09:00 03/07/17 08:59 02/09/17 07:48 30 MG Miscellaneous Information (Order Awaiting Action) 1 ea QS N/A 02/05/17 08:00 03/07/17 07:59 02/07/17 19:45 1 EA Varenicline (Chantix) 1 mg BID PO 02/05/17 09:00 03/07/17 08:59 02/09/17 07:48 1 MG Ondansetron HCl (Zofran Inj) 4 mg Q6H PRN IV 02/05/17 03:15 03/07/17 03:14 Heparin Sodium (Porcine) (Heparin Sq 5000 Unit/0.5ml) 5,000 unit Q8 SQ 02/05/17 06:00 03/07/17 05:59 02/09/17 13:25 5,000 UNIT Glucose (Glucose 40% Gel) 15-30 GRAMS 15 GRAMS... UD PRN PO 02/05/17 06:15 03/07/17 06:14 Glucose (Glucose Chew Tab) 4-8 Tablets 4 Tabl... UD PRN PO 02/05/17 06:15 03/07/17 06:14 Dextrose (Dextrose 50% 50ML Syringe) 25-50ML OF 50% DW IV FOR... UD PRN IV 02/05/17 06:15 03/07/17 06:14 Glucagon (Glucagon Inj) 1 mg UD PRN SQ 02/05/17 06:15 03/07/17 06:14 Miscellaneous Information (Consult Glycemic Management Pharmacy) 1 ea UD PRN N/A 02/05/17 12:19 03/07/17 12:18 Lisinopril (Zestril Tab) 10 mg DAILY PO 02/06/17 09:00 03/08/17 08:59 02/09/17 07:48 10 MG Amitriptyline HCl (Elavil Tab) 25 mg HS PO 02/05/17 21:00 03/07/17 20:59 02/08/17 21:31 25 MG Nystatin (Mycostatin Susp) 5 ml QID PO 02/05/17 21:00 02/15/17 20:59 02/09/17 13:24 5 ML Menthol (Nice Adan) 1 adan PRN PRN PO 02/06/17 06:00 03/08/17 05:59 Ipratropium [place] (Atrovent 0.02% 0.5MG/2.5ML Neb) 0.5 mg Q6R INH 02/06/17 09:00 03/08/17 08:59 02/09/17 14:13 0.5 MG Levalbuterol (Xopenex 1.25MG/ 0.5ML Neb) 1.25 mg Q6R INH 02/06/17 09:00 03/08/17 08:59 02/09/17 14:13 1.25 MG Insulin Glargine (Lantus Solostar Pen) SEE PROTOCOL TEXT HS SC 02/06/17 21:00 03/08/17 20:59 02/07/17 20:28 5 UNIT Insulin Glargine (Lantus Solostar Pen) 8 unit QAM SC 02/06/17 09:30 03/08/17 09:29 02/09/17 07:57 8 UNIT Alprazolam (Xanax Tab) 0.5 mg Q6H PRN PO 02/06/17 11:15 03/08/17 11:14 02/06/17 11:36 0.5 MG Levalbuterol (Xopenex 1.25MG/ 3ML Neb) 1.25 mg Q2H PRN INH 02/06/17 11:30 03/08/17 11:29 02/06/17 11:45 1.25 MG Nicotine (Nicoderm Cq 21MG Patch) 1 patch QAM TD 02/07/17 09:00 03/09/17 08:59 02/07/17 08:02 1 PATCH Miscellaneous (Remove Nicoderm Patch) 1 ea HS N/A 02/06/17 21:00 03/08/17 20:59 02/07/17 20:22 1 EA Guaifenesin (Mucinex Contr Rel Tab) 600 mg Q12 PO 02/07/17 09:00 03/09/17 08:59 02/09/17 07:47 600 MG Benzonatate (Tessalon Perles Cap) 100 mg Q8H PRN PO 02/07/17 01:15 03/09/17 01:14 02/08/17 14:25 100 MG Fluticasone Propionate (Flonase Nasal [place]) 2 sprays DAILY NA 02/07/17 10:00 03/09/17 09:59 02/09/17 07:50 2 SPRAYS Azithromycin (Zithromax Tab) 250 mg QAM PO 02/08/17 09:00 02/15/17 08:59 02/09/17 07:49 250 MG Cefepime HCl 2000 mg/Dextrose 112.5 ml @ 200 mls/hr Q12H IV 02/07/17 10:00 02/14/17 09:59 02/09/17 10:05 200 MLS/HR Insulin Aspart (novoLOG ASPART) SLIDING SCALE If C... ACHS SC 02/07/17 21:00 03/09/17 20:59 02/09/17 12:11 7 UNITS Methylprednisolone Sodium Succinate 40 mg/Syringe 0.64 ml @ 1.5 mls/min Q12H IV 02/08/17 21:30 03/08/17 09:29 02/09/17 07:46 1.5 MLS/MIN
[2017-02-09] MEDS: AMITRIPTYLINE HCL 25 MG TAB PO SCH (21:00)
[2017-02-09] MEDS: ROPINIROLE HCL 0.25 MG TAB PO SCH (21:00)
[2017-02-09] MEDS: BENZONATATE 100MG CAP PO PRN (23:46)
[2017-02-10] VITALS (7 sets, daily range): BP systolic 108–125; BP diastolic 32–76; PULSE 70–80; TEMP 36.5–36.9; O2SAT 92–96; Ht 167.6 cm; Wt 92.0 kg
[2017-02-10] MEDS: LEVALBUTEROL 1.25MG/0.5ML NEB INH SCH ×4 (02:23→19:15)
[2017-02-10] MEDS: IPRATROPIUM BROMIDE NEB SOLN 0.02% 2.5 ML VIAL INH SCH ×4 (02:23→19:15)
[2017-02-10] MEDS: LEVOTHYROXINE 75 MCG TAB PO SCH (05:43)
[2017-02-10] MEDS: SUCRALFATE 1 GM/10 ML UDC PO SCH ×3 (05:43→17:17)
[2017-02-10] MEDS: HEPARIN SOD 5000 UNIT/0.5 ML CARP SQ SCH ×3 (05:47→21:44)
[2017-02-10] MEDS: XYZAL~ORDER AWAITING ACTION SCH ×3 (08:00→23:36)
[2017-02-10] MEDS: METHYLPREDNISOLONE IV 40 MG in SYRINGE 0 ML IV SCH (08:19)
[2017-02-10] MEDS: LISINOPRIL 10 MG TAB PO SCH (08:20)
[2017-02-10] MEDS: VARENICLINE (CHANTIX) 1 MG TAB PO SCH ×2 (08:20→20:56)
[2017-02-10] MEDS: AZITHROMYCIN 250 MG TAB PO SCH (08:20)
[2017-02-10] MEDS: NYSTATIN SUSP 500,000 U/5 ML UDC PO SCH ×4 (08:21→20:56)
[2017-02-10] MEDS: PANTOprazole SOD 40 MG TAB PO SCH (08:21)
[2017-02-10] MEDS: GABAPENTIN 300 MG CAP PO SCH ×3 (08:21→20:56)
[2017-02-10] MEDS: PAROXETINE 20 MG TAB PO SCH (08:21)
[2017-02-10] MEDS: ASPIRIN 81 MG ECTAB PO SCH (08:21)
[2017-02-10] MEDS: BusPIRone 15 MG TAB PO SCH ×2 (08:21→20:56)
[2017-02-10] MEDS: FLUTICASONE PROPIONATE NA SPR 16 GM BTL SCH (08:22)
[2017-02-10] MEDS: NICOTINE 21 MG/24 HR TDSY TD SCH (08:22)
[2017-02-10] MEDS: GUAIFENESIN 600 MG TABCR PO SCH ×2 (08:22→20:56)
[2017-02-10] MEDS: INSULIN ASPART 100 UNITS/ML 3 ML PEN SC SCH ×4 (08:29→20:53)
[2017-02-10 08:42] LABS: CREATININE 1.3 mg/dl (0.60-1.20)
[2017-02-10] MEDS ORDERED: INSULIN GLARGINE SOLOSTAR 100 UNITS/ML 3 ML PEN SC SCH (09:00)
[2017-02-10] MEDS: CEFEPIME IV 2,000 MG in DEXTROSE 5% 100ML 100 ML IV SCH ×2 (10:04→21:41)
[2017-02-10] MEDS: BENZONATATE 100MG CAP PO PRN (13:55)
--- NOTE | 2017-02-10 14:22 | Pharmacy Progress Note ---
Glycemic: Assessment & Plan Date of Service Feb 10, 2017. Assessment & Plan The patient is currently receiving 25 units of insulin per day. BSGs ranging 100 - 179 mg/dl over the past 24hrs. * Basal insulin: Lantus 8 units every AM, 0 or 5 units every PM * Correctional Insulin: Novolog Correction per scale ACHS Goal Range: Low 110 mg/dL - High 140 mg/dL Correction Factor: 20 mg/dL/unit * Prandial insulin: Per carb ratio of 1 unit per 7 grams CHO consumed ASSESSMENT: 02/10/17 * Steroid dose remains constant. * Patient has not received PM Lantus dose in the past 48 hours because BSG has been less that 140 mg/dL. * Fasting BSG remains slightly elevated. * Transition to once daily dose of Lantus * Increase AM Lantus dose * Remove Lantus per scale dose at HS PLAN FOR INPATIENT GLYCEMIC CONTROL: * Increase Lantus to 8 units qAM * Remove Lantus per scale dose at bedtime * Continue CF 20 * Continue CR 7 * Continue goal range: 110 - 140 mg/dL Pharmacy will continue to monitor patient daily and write orders per [facility] inpatient glycemic control protocol. Thanks. * Please note that the plan above was derived based on current level of insulin resistance and hospital stress. These recommendations are appropriate for inpatient admission only. Plan of care upon discharge will need to be reassessed to avoid potential outpatient hypo/hyperglycemia.
--- NOTE | 2017-02-10 16:17 | Progress Note ---
Medicine Progress Note Date & Time of Visit: Feb 10, 2017 at 16:13. Subjective patient seen resting in bed, comfortable breathing continues to improve had a coughing episode but less, less sputum no chest pain leg pain improving ambulated with PT, no problems Objective Last 8 Hrs Date Time Temp Pulse Resp B/P (MAP) Pulse Ox O2 Delivery O2 Flow Rate FiO2 02/10/17 15:35 120/70 (87) 02/10/17 15:14 36.9 80 20 108/32 (57) 92 Nasal Cannula 2.0 02/10/17 14:20 74 16 96 Nasal Cannula 2.0 Physical Exam: General- oriented x 3, not in distress, speaks in sentences with no effort Neck- no JVD Lungs- (+) distant breath sounds, clear breath sounds , no wheezes bilaterally Heart- regular rhythm; no murmur, no murmurs Abdomen- normal bowel sounds, soft, nontender Extremities- no pretibial edema, no calf tenderness left thigh: no edema/erythema/warmth/tenderness Neuro- alert, oriented x 3; no gross focal deficits Skin- warm & dry Laboratory Results: Last 24 Hours Test 02/09/17 20:23 02/10/17 07:43 02/10/17 07:45 02/10/17 11:21 Bedside Glucose 100 mg/dl 148 mg/dl 86 mg/dl Creatinine 1.30 mg/dl Est Creatinine Clear Calc Drug Dose 49.3 ml/min Estimated GFR () 49.9 Estimated GFR (Non- 43.0 Assessment & Plan 66 year old female with history of COPD on home o2, Smoker, Chronic CHF, HTN, other problems noted below presenting with shortness of breath. 1. Acute on chronic hypoxemic respiratory failure 2/2 COPD exacerbation - likely from Acute Bronchitis - CXR: no pneumonia - was not improving on Doxycycline, Prednisone - started on Bipap, started Zosyn, Methylprednisolone IV improved, taken off bipap -- improving daily still on 2 liters o2 NC -- de escalated Zosyn to Cefepime day 4, added Azithromycin Day 4 for atypical coverage taper Solumedrol to daily, Nebs q6h consulted Pulmonary, appreciate the input 2. Oral Candidiasis -- received Fluconazole PO 1 dose 02/05/17 -- now on Nystatin -- improving -- Amytriptiline being weaned off 3. CKD-stage III -- stable 4. Chronic systolic heart failure -- euvolemic -- Cont lisinopril and ASA atenolol on hold for wheezing episode 5. Tobacco use -- Nicotine Patch 6. DM 2, new diagnosis -- A1C is 7.3 -- on ISS, [facility] on board -- will need oral agents on discharge DM educator consulted 7. Hypothyroidism-TSH stable, cont home Synthroid 8. Anxiety-cont Buspar, decreasing Elavil as above. DVT proph-Heparin SQ Full Code Dispo pending PT/OT anticipate d/c home when medically stable, in 1-2 days will order 2 step exercise test Current Inpatient Medications: Current Inpatient Medications Medications (Trade) Dose Ordered Sig/Magdalene Route Start Time Stop Time Status Last Admin Dose Admin Acetaminophen (Tylenol Tab) 650 mg Q4H PRN PO 02/05/17 03:15 03/07/17 03:14 02/06/17 09:46 650 MG Aspirin (Ecotrin Tab) 81 mg DAILY PO 02/05/17 09:00 03/07/17 08:59 02/10/17 08:21 81 MG Atenolol (Tenormin Tab) 25 mg DAILY PO 02/05/17 09:00 03/07/17 08:59 Future Hold 02/05/17 09:04 25 MG Gabapentin (Neurontin Cap) 300 mg TID PO 02/05/17 09:00 03/07/17 08:59 02/10/17 13:52 300 MG Levothyroxine Sodium (Synthroid Tab) 75 mcg DAILYBB PO 02/05/17 06:30 03/07/17 06:29 02/10/17 05:43 75 MCG Nitroglycerin (Nitrostat Tab) 0.4 mg UD PRN UT 02/05/17 03:15 03/07/17 03:14 Pantoprazole Sodium (Protonix Tab) 40 mg QAM PO 02/05/17 09:00 03/07/17 08:59 02/10/17 08:21 40 MG Paroxetine HCl (pAXil TAB) 40 mg QAM PO 02/05/17 09:00 03/07/17 08:59 02/10/17 08:21 40 MG Ropinirole HCl (Requip Tab) 0.25 mg HS PO 02/05/17 21:00 03/07/17 20:59 02/09/17 21:00 0.25 MG Senna/Docusate Sodium (Senokot S Tab) 1 tab Q24H PRN PO 02/05/17 03:15 03/07/17 03:14 Sucralfate (Carafate Susp) 1 gm Q6H PO 02/05/17 06:00 03/07/17 05:59 02/10/17 11:12 1 GM Tramadol HCl (Ultram Tab) 50 mg Q8H PRN PO 02/05/17 03:15 03/07/17 03:14 02/09/17 18:31 50 MG Miscellaneous Information (Order Awaiting Action) 1 ea QS N/A 02/05/17 08:00 03/07/17 07:59 02/07/17 19:45 1 EA Buspirone HCl (BusPAR TAB) 30 mg BID PO 02/05/17 09:00 03/07/17 08:59 02/10/17 08:21 30 MG Miscellaneous Information (Order Awaiting Action) 1 ea QS N/A 02/05/17 08:00 03/07/17 07:59 02/07/17 19:45 1 EA Varenicline (Chantix) 1 mg BID PO 02/05/17 09:00 03/07/17 08:59 02/10/17 08:20 1 MG Ondansetron HCl (Zofran Inj) 4 mg Q6H PRN IV 02/05/17 03:15 03/07/17 03:14 Heparin Sodium (Porcine) (Heparin Sq 5000 Unit/0.5ml) 5,000 unit Q8 SQ 02/05/17 06:00 03/07/17 05:59 02/10/17 13:54 5,000 UNIT Glucose (Glucose 40% Gel) 15-30 GRAMS 15 GRAMS... UD PRN PO 02/05/17 06:15 03/07/17 06:14 Glucose (Glucose Chew Tab) 4-8 Tablets 4 Tabl... UD PRN PO 02/05/17 06:15 03/07/17 06:14 Dextrose (Dextrose 50% 50ML Syringe) 25-50ML OF 50% DW IV FOR... UD PRN IV 02/05/17 06:15 7/16/17 06:14 Glucagon (Glucagon Inj) 1 mg UD PRN SQ 02/05/17 06:15 03/07/17 06:14 Miscellaneous Information (Consult Glycemic Management Pharmacy) 1 ea UD PRN N/A 02/05/17 12:19 03/07/17 12:18 Lisinopril (Zestril Tab) 10 mg DAILY PO 02/06/17 09:00 03/08/17 08:59 02/10/17 08:20 10 MG Amitriptyline HCl (Elavil Tab) 25 mg HS PO 02/05/17 21:00 03/07/17 20:59 02/09/17 21:00 25 MG Nystatin (Mycostatin Susp) 5 ml QID PO 02/05/17 21:00 02/15/17 20:59 02/10/17 13:52 5 ML Menthol (Nice Adan) 1 adan PRN PRN PO 02/06/17 06:00 03/08/17 05:59 Ipratropium [place] (Atrovent 0.02% 0.5MG/2.5ML Neb) 0.5 mg Q6R INH 02/06/17 09:00 03/08/17 08:59 02/10/17 14:20 0.5 MG Levalbuterol (Xopenex 1.25MG/ 0.5ML Neb) 1.25 mg Q6R INH 02/06/17 09:00 03/08/17 08:59 02/10/17 14:20 1.25 MG Alprazolam (Xanax Tab) 0.5 mg Q6H PRN PO 02/06/17 11:15 03/08/17 11:14 02/06/17 11:36 0.5 MG Levalbuterol (Xopenex 1.25MG/ 3ML Neb) 1.25 mg Q2H PRN INH 02/06/17 11:30 03/08/17 11:29 02/06/17 11:45 1.25 MG Nicotine (Nicoderm Cq 21MG Patch) 1 patch QAM TD 02/07/17 09:00 03/09/17 08:59 02/07/17 08:02 1 PATCH Miscellaneous (Remove Nicoderm Patch) 1 ea HS N/A 02/06/17 21:00 03/08/17 20:59 02/07/17 20:22 1 EA Guaifenesin (Mucinex Contr Rel Tab) 600 mg Q12 PO 02/07/17 09:00 03/09/17 08:59 02/10/17 08:22 600 MG Benzonatate (Tessalon Perles Cap) 100 mg Q8H PRN PO 02/07/17 01:15 03/09/17 01:14 02/10/17 13:55 100 MG Fluticasone Propionate (Flonase Nasal [place]) 2 sprays DAILY NA 02/07/17 10:00 03/09/17 09:59 02/10/17 08:22 2 SPRAYS Azithromycin (Zithromax Tab) 250 mg QAM PO 02/08/17 09:00 02/15/17 08:59 02/10/17 08:20 250 MG Cefepime HCl 2000 mg/Dextrose 112.5 ml @ 200 mls/hr Q12H IV 02/07/17 10:00 02/14/17 09:59 02/10/17 10:04 200 MLS/HR Insulin Aspart (novoLOG ASPART) SLIDING SCALE If C... ACHS SC 02/07/17 21:00 03/09/17 20:59 02/10/17 08:29 11 UNITS Methylprednisolone Sodium Succinate 40 mg/Syringe 0.64 ml @ 1.5 mls/min Q12H IV 02/08/17 21:30 03/08/17 09:29 02/10/17 08:19 1.5 MLS/MIN Insulin Glargine (Lantus Solostar Pen) 10 unit QAM SC 02/10/17 09:00 03/12/17 08:59 02/10/17 08:30 10 UNIT
[2017-02-10] MEDS: ROPINIROLE HCL 0.25 MG TAB PO SCH (20:56)
[2017-02-10] MEDS: AMITRIPTYLINE HCL 25 MG TAB PO SCH (20:56)
[2017-02-11] VITALS (11 sets, daily range): BP systolic 95–126; BP diastolic 62–77; PULSE 68–94; TEMP 36.6–36.8; O2SAT 92–99
[2017-02-11] MEDS: BENZONATATE 100MG CAP PO PRN ×3 (00:18→21:50)
[2017-02-11] MEDS: ACETAMINOPHEN 325 MG TAB PO PRN ×2 (00:18→18:11)
[2017-02-11] MEDS: SUCRALFATE 1 GM/10 ML UDC PO SCH ×5 (00:18→23:30)
[2017-02-11] MEDS: IPRATROPIUM BROMIDE NEB SOLN 0.02% 2.5 ML VIAL INH SCH ×4 (02:20→19:58)
[2017-02-11] MEDS: LEVALBUTEROL 1.25MG/0.5ML NEB INH SCH ×4 (02:20→19:58)
[2017-02-11] MEDS: LEVOTHYROXINE 75 MCG TAB PO SCH (05:43)
[2017-02-11] MEDS: HEPARIN SOD 5000 UNIT/0.5 ML CARP SQ SCH ×3 (05:45→21:48)
[2017-02-11] MEDS: XYZAL~ORDER AWAITING ACTION SCH ×3 (07:10→23:10)
[2017-02-11 07:29] LABS: HEMATOCRIT 38.4 % (37-47); MEAN CELL VOLUME 92.3 fL (80-100); MEAN CORPUSCULAR HEMOGLOBIN 29.6 pg (25-34); MEAN PLATELET VOLUME 8.4 fL (7.4-10.4); PLATELET COUNT 458 K/uL (130-400); RED BLOOD COUNT 4.16 M/uL (4.2-5.4)
[2017-02-11 07:56] LABS: LYMPH ABS # 7.58 K/uL (1.2-3.4); LYMPHOCYTE % 50.9 %; META ABS # 0.39 K/uL (0-0); METAMYELOCYTE % 2.6 %; NEUTROPHILS % 42.1 %
[2017-02-11] MEDS: NICOTINE 21 MG/24 HR TDSY TD SCH (07:58)
[2017-02-11] MEDS: AZITHROMYCIN 250 MG TAB PO SCH (07:59)
[2017-02-11] MEDS: BusPIRone 15 MG TAB PO SCH ×2 (08:00→21:04)
[2017-02-11] MEDS: VARENICLINE (CHANTIX) 1 MG TAB PO SCH ×2 (08:00→21:04)
[2017-02-11] MEDS: PANTOprazole SOD 40 MG TAB PO SCH (08:00)
[2017-02-11] MEDS ORDERED: METHYLPREDNISOLONE IV 40 MG in SYRINGE 0 ML IV SCH (08:00)
[2017-02-11] MEDS: GABAPENTIN 300 MG CAP PO SCH ×3 (08:01→21:04)
[2017-02-11] MEDS: GUAIFENESIN 600 MG TABCR PO SCH ×2 (08:01→21:04)
[2017-02-11] MEDS: NYSTATIN SUSP 500,000 U/5 ML UDC PO SCH ×4 (08:02→21:04)
[2017-02-11] MEDS: FLUTICASONE PROPIONATE NA SPR 16 GM BTL SCH (08:03)
[2017-02-11] MEDS: PAROXETINE 20 MG TAB PO SCH (08:03)
[2017-02-11] MEDS: ASPIRIN 81 MG ECTAB PO SCH (08:03)
[2017-02-11] MEDS ORDERED: INSULIN GLARGINE SOLOSTAR 100 UNITS/ML 3 ML PEN SC SCH (09:30)
[2017-02-11] MEDS: LISINOPRIL 10 MG TAB PO SCH ×2 (09:38→10:41)
[2017-02-11] MEDS: INSULIN ASPART 100 UNITS/ML 3 ML PEN SC SCH ×4 (09:43→21:00)
[2017-02-11] MEDS: CEFEPIME IV 2,000 MG in DEXTROSE 5% 100ML 100 ML IV SCH ×2 (10:28→21:48)
[2017-02-11 11:03] LABS: COMPLETE YES
--- NOTE | 2017-02-11 13:33 | PULMONARY PROGRESS NOTE ---
DATE: 02/11/2017 DATE: 02/11/2017. TIME: 1:10 p.m. SUBJECTIVE: The patient states she is feeling much better. She feels almost back to her baseline. She states her cough is much less. Her mucus is white. She denies shortness of breath with exertion. She has had her oxygen off for much of the day. OBJECTIVE: GENERAL: The patient appears comfortable. VITAL SIGNS: Temperature is 36.6. Heart rate was 72 per minute. Blood pressure is 115/73. LUNGS: Lung whaley revealed diminished breath sounds. No active wheezes, rales or rhonchi were heard. Room air pulse oximetry done by myself was 93%. EXTREMITIES: Showed no cyanosis, clubbing or edema. LABORATORY DATA: White count today is 14.9. Hemoglobin 12.3. Platelets 458,000. IMPRESSIONS: 1. Chronic obstructive pulmonary disease with exacerbation. 2. Nicotine addiction. 3. Status post tracheostomy. COMMENTS: The patient appears to be approaching discharge. She states she is about as comfortable as she usually gets. She does need a 2-step before discharge. I believe the methylprednisolone can be stopped and she can be started on prednisone. I believe the antibiotics could be changed to oral. She does have a nebulizer at home. Review of the physical therapy note from yesterday suggests she did not ambulate complaining that her left leg hurt. She did not tell me that today. That obviously should be evaluated before she is discharged.
--- NOTE | 2017-02-11 15:15 | Pharmacy Progress Note ---
Glycemic: Assessment & Plan Date of Service Feb 11, 2017. Assessment & Plan CURRENT REGIMEN: The patient is currently receiving 25-27 units of insulin per day. BSGs ranging 86 - 148 mg/dl over the past 24hrs. * Basal insulin: Lantus 10 units sq qam * Correctional Insulin: Novolog Correction per scale ACHS Goal Range: Low 110 mg/dL - High 140 mg/dL Correction Factor: 20 mg/dL/unit * Prandial insulin: Per carb ratio of 1 unit per 7 grams CHO consumed ASSESSMENT: 02/10/17 * Steroid dose remains constant. * Patient has not received PM Lantus dose in the past 48 hours because BSG has been less that 140 mg/dL. * Fasting BSG remains slightly elevated. * Transition to once daily dose of Lantus * Increase AM Lantus dose * Remove Lantus per scale dose at 02/11/17 * Steroid decreased from Solu-medrol 40 mg IV every 12 hours to every 24 hours * Significant decrease in fasting BSG today. * In the setting of tapering steroids and lower than desired fasting BSG, will resume reduced dose of Lantus. * Loosen CF/CR parameters as steroids are stepped down PLAN FOR INPATIENT GLYCEMIC CONTROL: * Decrease Lantus to 8 units sq qAM * Loosen CF to 25 * Loosen CR to 8 * Continue goal range: 110 - 140 mg/dL Pharmacy will continue to monitor patient daily and write orders per [facility] inpatient glycemic control protocol. Thanks. * Please note that the plan above was derived based on current level of insulin resistance and hospital stress. These recommendations are appropriate for inpatient admission only. Plan of care upon discharge will need to be reassessed to avoid potential outpatient hypo/hyperglycemia.
--- NOTE | 2017-02-11 20:26 | Progress Note ---
Medicine Progress Note Date & Time of Visit: Feb 11, 2017 at 20:22. Subjective patient seen resting in bed, comfortable breathing continues to improve less cough leg pain better ambulating with no problems no other symptoms Objective Last 8 Hrs Date Time Temp Pulse Resp B/P (MAP) Pulse Ox O2 Delivery O2 Flow Rate FiO2 02/11/17 20:03 84 16 96 Room Air 02/11/17 15:35 Room Air 02/11/17 15:11 36.8 94 18 122/74 (90) 92 Room Air 02/11/17 14:21 83 18 93 Room Air 02/11/17 13:59 92 Physical Exam: General- oriented x 3, not in distress, speaks in sentences with no effort Neck- no JVD Lungs- clear breath sounds bilaterally Heart- regular rhythm; no murmur, normal rate Abdomen- normal bowel sounds, soft, nontender Extremities- no pretibial edema, no calf tenderness left thigh: no edema/erythema/warmth/tenderness Neuro- alert, oriented x 3; no gross focal deficits Skin- warm & dry Laboratory Results: Last 24 Hours Test 02/11/17 07:07 02/11/17 07:27 02/11/17 11:24 02/11/17 16:05 White Blood Count 14.90 K/uL Red Blood Count 4.16 M/uL Hemoglobin 12.3 g/dL Hematocrit 38.4 % Mean Corpuscular Volume 92.3 fL Mean Corpuscular Hemoglobin 29.6 pg Mean Corpuscular Hemoglobin Concent 32.0 g/dl Platelet Count 458 K/uL Mean Platelet Volume 8.4 fL RDW Standard Deviation 47.5 fL RDW Coefficient of Variation 14.1 % Nucleated RBC Absolute Count (auto) 0.02 K/uL Neutrophils % (Manual) 42.1 % Lymphocytes % (Manual) 50.9 % Monocytes % (Manual) 4.4 % Metamyelocytes % 2.6 % Nucleated Red Blood Cells % 0.1 % Neutrophils # (Manual) 6.27 K/uL Total Absolute Neutrophils 6.27 K/uL Lymphocytes # (Manual) 7.58 K/uL Total Absolute Lymphocytes 7.58 K/uL Monocytes # (Manual) 0.66 K/uL Metamyelocytes # 0.39 K/uL Blood Smear Review Bedside Glucose 86 mg/dl 128 mg/dl 104 mg/dl Assessment & Plan 66 year old female with history of COPD on home o2, Smoker, Chronic CHF, HTN, other problems noted below presenting with shortness of breath. 1. Acute on chronic hypoxemic respiratory failure 2/2 COPD exacerbation - likely from Acute Bronchitis - CXR: no pneumonia - was not improving on Doxycycline, Prednisone - started on Bipap, started Zosyn, Methylprednisolone IV improved, taken off bipap -- improving daily off nasal cannula -- de escalated Zosyn to Cefepime day 5, added Azithromycin Day 5 for atypical coverage taper Solumedrol to prednisone, Nebs q6h consulted Pulmonary, appreciate the input -- anticipate d/c in AM r/o CLL -- based on peripheral smear -- flow cytometry ordered -- Hematology consulted 2. Oral Candidiasis -- received Fluconazole PO 1 dose 02/05/17 -- now on Nystatin -- improving -- Amytriptiline being weaned off 3. CKD-stage III -- stable 4. Chronic systolic heart failure -- euvolemic -- Cont lisinopril and ASA atenolol on hold for wheezing episode 5. Tobacco use -- Nicotine Patch 6. DM 2, new diagnosis -- A1C is 7.3 -- on ISS, [facility] on board -- will need oral agents on discharge- need to consider renal function DM educator consulted 7. Hypothyroidism-TSH stable, cont home Synthroid 8. Anxiety-cont Buspar, decreasing Elavil as above. DVT proph-Heparin SQ Full Code Dispo pending PT/OT anticipate d/c home tomorrow needs 2 step exercise test Current Inpatient Medications: Current Inpatient Medications Medications (Trade) Dose Ordered Sig/Magdalene Route Start Time Stop Time Status Last Admin Dose Admin Acetaminophen (Tylenol Tab) 650 mg Q4H PRN PO 02/05/17 03:15 03/07/17 03:14 02/11/17 18:11 650 MG Aspirin (Ecotrin Tab) 81 mg DAILY PO 02/05/17 09:00 03/07/17 08:59 02/11/17 08:03 81 MG Atenolol (Tenormin Tab) 25 mg DAILY PO 02/05/17 09:00 03/07/17 08:59 Future Hold 02/05/17 09:04 25 MG Gabapentin (Neurontin Cap) 300 mg TID PO 02/05/17 09:00 03/07/17 08:59 02/11/17 15:33 300 MG Levothyroxine Sodium (Synthroid Tab) 75 mcg DAILYBB PO 02/05/17 06:30 03/07/17 06:29 02/11/17 05:43 75 MCG Nitroglycerin (Nitrostat Tab) 0.4 mg UD PRN UT 02/05/17 03:15 03/07/17 03:14 Pantoprazole Sodium (Protonix Tab) 40 mg QAM PO 02/05/17 09:00 03/07/17 08:59 02/11/17 08:00 40 MG Paroxetine HCl (pAXil TAB) 40 mg QAM PO 02/05/17 09:00 03/07/17 08:59 02/11/17 08:03 40 MG Ropinirole HCl (Requip Tab) 0.25 mg HS PO 02/05/17 21:00 03/07/17 20:59 02/10/17 20:56 0.25 MG Senna/Docusate Sodium (Senokot S Tab) 1 tab Q24H PRN PO 02/05/17 03:15 03/07/17 03:14 Sucralfate (Carafate Susp) 1 gm Q6H PO 02/05/17 06:00 03/07/17 05:59 02/11/17 17:21 1 GM Tramadol HCl (Ultram Tab) 50 mg Q8H PRN PO 02/05/17 03:15 03/07/17 03:14 02/09/17 18:31 50 MG Miscellaneous Information (Order Awaiting Action) 1 ea QS N/A 02/05/17 08:00 03/07/17 07:59 02/07/17 19:45 1 EA Buspirone HCl (BusPAR TAB) 30 mg BID PO 02/05/17 09:00 03/07/17 08:59 02/11/17 08:00 30 MG Miscellaneous Information (Order Awaiting Action) 1 ea QS N/A 02/05/17 08:00 03/07/17 07:59 02/07/17 19:45 1 EA Varenicline (Chantix) 1 mg BID PO 02/05/17 09:00 03/07/17 08:59 02/11/17 08:00 1 MG Ondansetron HCl (Zofran Inj) 4 mg Q6H PRN IV 02/05/17 03:15 03/07/17 03:14 Heparin Sodium (Porcine) (Heparin Sq 5000 Unit/0.5ml) 5,000 unit Q8 SQ 02/05/17 06:00 03/07/17 05:59 02/11/17 14:34 5,000 UNIT Glucose (Glucose 40% Gel) 15-30 GRAMS 15 GRAMS... UD PRN PO 02/05/17 06:15 03/07/17 06:14 Glucose (Glucose Chew Tab) 4-8 Tablets 4 Tabl... UD PRN PO 02/05/17 06:15 03/07/17 06:14 Dextrose (Dextrose 50% 50ML Syringe) 25-50ML OF 50% DW IV FOR... UD PRN IV 02/05/17 06:15 03/07/17 06:14 Glucagon (Glucagon Inj) 1 mg UD PRN SQ 02/05/17 06:15 03/07/17 06:14 Miscellaneous Information (Consult Glycemic Management Pharmacy) 1 ea UD PRN N/A 02/05/17 12:19 03/07/17 12:18 Lisinopril (Zestril Tab) 10 mg DAILY PO 02/06/17 09:00 03/08/17 08:59 02/11/17 10:41 10 MG Amitriptyline HCl (Elavil Tab) 25 mg HS PO 02/05/17 21:00 03/07/17 20:59 02/10/17 20:56 25 MG Nystatin (Mycostatin Susp) 5 ml QID PO 02/05/17 21:00 02/15/17 20:59 02/11/17 17:21 5 ML Menthol (Nice Adan) 1 adan PRN PRN PO 02/06/17 06:00 03/08/17 05:59 Ipratropium [place] (Atrovent 0.02% 0.5MG/2.5ML Neb) 0.5 mg Q6R INH 02/06/17 09:00 03/08/17 08:59 02/11/17 19:58 0.5 MG Levalbuterol (Xopenex 1.25MG/ 0.5ML Neb) 1.25 mg Q6R INH 02/06/17 09:00 03/08/17 08:59 02/11/17 19:58 1.25 MG Alprazolam (Xanax Tab) 0.5 mg Q6H PRN PO 02/06/17 11:15 03/08/17 11:14 02/06/17 11:36 0.5 MG Levalbuterol (Xopenex 1.25MG/ 3ML Neb) 1.25 mg Q2H PRN INH 02/06/17 11:30 03/08/17 11:29 02/06/17 11:45 1.25 MG Nicotine (Nicoderm Cq 21MG Patch) 1 patch QAM TD 02/07/17 09:00 03/09/17 08:59 02/07/17 08:02 1 PATCH Miscellaneous (Remove Nicoderm Patch) 1 ea HS N/A 02/06/17 21:00 03/08/17 20:59 02/07/17 20:22 1 EA Guaifenesin (Mucinex Contr Rel Tab) 600 mg Q12 PO 02/07/17 09:00 03/09/17 08:59 02/11/17 08:01 600 MG Benzonatate (Tessalon Perles Cap) 100 mg Q8H PRN PO 02/07/17 01:15 03/09/17 01:14 02/11/17 08:01 100 MG Fluticasone Propionate (Flonase Nasal [place]) 2 sprays DAILY NA 02/07/17 10:00 03/09/17 09:59 02/11/17 08:03 2 SPRAYS Azithromycin (Zithromax Tab) 250 mg QAM PO 02/08/17 09:00 02/15/17 08:59 02/11/17 07:59 250 MG Cefepime HCl 2000 mg/Dextrose 112.5 ml @ 200 mls/hr Q12H IV 02/07/17 10:00 02/14/17 09:59 02/11/17 10:28 200 MLS/HR Insulin Aspart (novoLOG ASPART) SLIDING SCALE If C... ACHS SC 02/07/17 21:00 03/09/17 20:59 02/11/17 17:20 6 UNITS Insulin Glargine (Lantus Solostar Pen) 8 unit QAM SC 02/11/17 09:30 03/13/17 09:29 02/11/17 09:43 8 UNIT Prednisone (PredniSONE TAB) 40 mg DAILY PO 02/12/17 09:00 03/14/17 08:59
[2017-02-11] MEDS: AMITRIPTYLINE HCL 25 MG TAB PO SCH (21:04)
[2017-02-11] MEDS: ROPINIROLE HCL 0.25 MG TAB PO SCH (21:04)
[2017-02-12 02:07] VITALS: PULSE 72; O2SAT 98
[2017-02-12] MEDS: IPRATROPIUM BROMIDE NEB SOLN 0.02% 2.5 ML VIAL INH SCH ×4 (02:07→19:40)
[2017-02-12] MEDS: LEVALBUTEROL 1.25MG/0.5ML NEB INH SCH ×4 (02:07→19:40)
[2017-02-12] MEDS: SUCRALFATE 1 GM/10 ML UDC PO SCH ×3 (06:14→17:38)
[2017-02-12] MEDS: LEVOTHYROXINE 75 MCG TAB PO SCH (06:15)
[2017-02-12] MEDS: HEPARIN SOD 5000 UNIT/0.5 ML CARP SQ SCH ×2 (06:19→13:54)
[2017-02-12 06:50] VITALS: PULSE 64; O2SAT 97
[2017-02-12 07:37] VITALS: BP 118/77; PULSE 66; TEMP 36.2; O2SAT 96
[2017-02-12] MEDS: BENZONATATE 100MG CAP PO PRN ×2 (07:37→13:30)
[2017-02-12] MEDS: ACETAMINOPHEN 325 MG TAB PO PRN ×2 (07:37→13:30)
[2017-02-12] MEDS: LISINOPRIL 10 MG TAB PO SCH (07:38)
[2017-02-12] MEDS: NYSTATIN SUSP 500,000 U/5 ML UDC PO SCH ×3 (07:39→17:37)
[2017-02-12] MEDS: GUAIFENESIN 600 MG TABCR PO SCH (07:39)
[2017-02-12] MEDS: AZITHROMYCIN 250 MG TAB PO SCH (07:39)
[2017-02-12] MEDS: PANTOprazole SOD 40 MG TAB PO SCH (07:39)
[2017-02-12] MEDS: GABAPENTIN 300 MG CAP PO SCH ×2 (07:40→14:59)
[2017-02-12] MEDS: PAROXETINE 20 MG TAB PO SCH (07:40)
[2017-02-12] MEDS: ASPIRIN 81 MG ECTAB PO SCH (07:40)
[2017-02-12] MEDS: VARENICLINE (CHANTIX) 1 MG TAB PO SCH (07:40)
[2017-02-12] MEDS: BusPIRone 15 MG TAB PO SCH (07:41)
[2017-02-12] MEDS: FLUTICASONE PROPIONATE NA SPR 16 GM BTL SCH (07:41)
[2017-02-12] MEDS: XYZAL~ORDER AWAITING ACTION SCH ×2 (07:42→15:00)
[2017-02-12] MEDS: NICOTINE 21 MG/24 HR TDSY TD SCH (07:45)
[2017-02-12 07:56] LABS: BUN/CREATININE RATIO 19.8 (10-20); CALCIUM 8.5 mg/dl (8.5-10.1); CREATININE 1.3 mg/dl (0.60-1.20); POTASSIUM 3.7 mmol/L (3.5-5.1)
[2017-02-12] MEDS: INSULIN ASPART 100 UNITS/ML 3 ML PEN SC SCH ×3 (09:14→17:58)
[2017-02-12] MEDS ORDERED: INSULIN GLARGINE SOLOSTAR 100 UNITS/ML 3 ML PEN SC SCH (09:15)
[2017-02-12] MEDS: TRAMADOL HCL 50 MG TAB PO PRN (09:39)
[2017-02-12] MEDS: CEFEPIME IV 2,000 MG in DEXTROSE 5% 100ML 100 ML IV SCH (09:40)
--- NOTE | 2017-02-12 11:42 | Pharmacy Progress Note ---
Glycemic Control Progress Note Date of Service Feb 12, 2017. Scope Glycemic Pharmacist consulted for glycemic control to write orders per [facility] inpatient glycemic control protocol. Objective Accuchecks BSG (last 24hrs): Test 02/11/17 16:05 02/11/17 20:18 02/12/17 07:13 02/12/17 07:16 Bedside Glucose 104 mg/dl (70-90) 97 mg/dl (70-90) 91 mg/dl (70-90) Random Glucose 93 mg/dl (70-99) HbA1c: Test 02/05/17 06:26 Hemoglobin A1c 7.3 % (4.5-5.6) H Recent Pertinent Medications The patient is currently receiving: * Basal insulin: Lantus 8 units every 24 hours given in the morning * Correctional Insulin: Novolog Correction per scale ACHS Goal Range: Low 110 mg/dL - High 140 mg/dL Correction Factor: 25 mg/dL/unit * Prandial insulin: Per carb ratio of 1 unit per 8 grams CHO consumed Outpatient Anti-Diabetic Meds N/A; no outpatient anti-diabetic medications Assessment & Plan ASSESSMENT: * See progress note from 02/05/17 for more background info, in short: * Pt receiving SQ basal bolus insulin regimen for hyperglycemia secondary to stress/infection, steroids, and baseline DM {diet controlled} * Patient is currently receiving an average of 25 units of insulin per day * 8 units of basal insulin * 17 units of prandial/correctional insulin * BSGs ranging 86 - 128 mg/dl over the past 24hrs * Changes needed to insulin regimen: * AM Fasting BSG = 91 mg/dl. This is slightly below goal range for patient based on inpatient targets and co-morbidities. Therefore Basal insulin needs decreased. Additionally, steroids tapered to prednisone daily therefore decrease in basal insulin warranted. * Post-prandial BSGs are in range therefore no changes needed to CF/CR. However , steroids tapered today to prednisone. Steroids have their most profound effect on post-prandial GLU therefore, decreasing CR is warranted to prevent hypo. * Total daily dose = 25 units. This dosing is yielding adequate glycemic control but expect total daily dose to continue to decrease with each step down in steroid dosing. PLAN FOR INPATIENT GLYCEMIC CONTROL: * Basal insulin: decrease in accordance with steroid taper * Lantus 5 units SQ daily. May consider d/c all together in the next day or so with steroid taper * Bolus insulin : loosen CR in accordance with steroid taper * NovoLog per scale ACHS or Q6hrs while NPO * Goal Range: Low 110 mg/dL - High 140 mg/dL * Correction Factor: 25 mg/dL/unit * Nutritional / Prandial insulin per carb ratio of 1 unit per 9 grams CHO consumed * Please note that the plan above was derived based on current level of insulin resistance and hospital stress. These recommendations are appropriate for inpatient admission only. Plan of care upon discharge will need to be reassessed to avoid potential outpatient hypo/hyperglycemia. Thank you.
[2017-02-12] MEDS ORDERED: BENZOCAINE 20% (ORAJEL) 11.9 GM TUBE MT PRN (13:00)
[2017-02-12 14:10] VITALS: PULSE 90; O2SAT 96
[2017-02-12 15:07] VITALS: BP 118/73; PULSE 86; TEMP 36.9; O2SAT 92
--- NOTE | 2017-02-12 18:11 | Progress Note ---
Medicine Progress Note Date & Time of Visit: Feb 12, 2017 at 17:53. Subjective patient seen resting in bed, comfortable states she feels well overall denies dyspnea, cough ambulates with no problem states she is ready and would like to be discharged today no other symptoms Objective Last 8 Hrs Date Time Temp Pulse Resp B/P (MAP) Pulse Ox O2 Delivery O2 Flow Rate FiO2 02/12/17 16:00 Room Air 02/12/17 15:07 36.9 86 20 118/73 (88) 92 Nasal Cannula 2.0 02/12/17 14:10 90 16 96 Nasal Cannula 2.0 Physical Exam: General- oriented x 3, not in distress, speaks in sentences with no effort Neck- no JVD Lungs- no rales/wheezes, clear breath sounds bilaterally Heart- regular rhythm; no murmur, normal rate Abdomen- normal bowel sounds, soft, nontender Extremities- no pretibial edema, no calf tenderness left thigh: no edema/erythema/warmth/tenderness Neuro- alert, oriented x 3; no gross focal deficits Skin- warm & dry Laboratory Results: Last 24 Hours Test 02/11/17 20:18 02/12/17 07:13 02/12/17 07:16 02/12/17 11:15 Bedside Glucose 97 mg/dl 91 mg/dl 100 mg/dl Sodium Level 143 mmol/L Potassium Level 3.7 mmol/L Chloride Level 108 mmol/L Carbon Dioxide Level 28 mmol/L Anion Gap 7.0 mmol/L Blood Urea Nitrogen 26 mg/dl Creatinine 1.30 mg/dl Est Creatinine Clear Calc Drug Dose 49.3 ml/min Estimated GFR () 49.9 Estimated GFR (Non- 43.0 BUN/Creatinine Ratio 19.8 Random Glucose 93 mg/dl Calcium Level 8.5 mg/dl Assessment & Plan 66 year old female with history of COPD on home o2, Smoker, Chronic CHF, HTN, other problems noted below presenting with shortness of breath. Acute on chronic hypoxemic respiratory failure 2/2 COPD exacerbation - likely from Acute Bronchitis - CXR: no pneumonia - was not improving on Doxycycline, Prednisone hence, was started on Bipap, Zosyn, Methylprednisolone IV improved, taken off bipap -- improved daily off nasal cannula -- de escalated Zosyn to Cefepime and Azithromycin x 6 days tapered Solumedrol to prednisone, Nebs q6h given consulted Pulmonary- Dr. 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 monoclonal b lymphocytosis - flow cytometry ordered please follow up - may need referral to Hematology Oral Candidiasis -- received Fluconazole PO 1 dose 02/05/17 -- given Nystatin -- improved -- Amytriptiline being weaned off CKD-stage III -- stable Chronic systolic heart failure -- euvolemic -- Cont lisinopril and ASA, Atenolol Tobacco use -- Nicotine Patch given Hypothyroidism-TSH stable, cont home Synthroid Anxiety-cont Buspar, decreasing Elavil as above. Dispo d/c home ff up with PCP next week Current Inpatient Medications: Current Inpatient Medications Medications (Trade) Dose Ordered Sig/Magdalene Route Start Time Stop Time Status Last Admin Dose Admin Acetaminophen (Tylenol Tab) 650 mg Q4H PRN PO 02/05/17 03:15 03/07/17 03:14 02/12/17 13:30 650 MG Aspirin (Ecotrin Tab) 81 mg DAILY PO 02/05/17 09:00 03/07/17 08:59 02/12/17 07:40 81 MG Atenolol (Tenormin Tab) 25 mg DAILY PO 02/05/17 09:00 03/07/17 08:59 Future Hold 02/05/17 09:04 25 MG Gabapentin (Neurontin Cap) 300 mg TID PO 02/05/17 09:00 03/07/17 08:59 02/12/17 14:59 300 MG Levothyroxine Sodium (Synthroid Tab) 75 mcg DAILYBB PO 02/05/17 06:30 03/07/17 06:29 02/12/17 06:15 75 MCG Nitroglycerin (Nitrostat Tab) 0.4 mg UD PRN UT 02/05/17 03:15 03/07/17 03:14 Pantoprazole Sodium (Protonix Tab) 40 mg QAM PO 02/05/17 09:00 03/07/17 08:59 02/12/17 07:39 40 MG Paroxetine HCl (pAXil TAB) 40 mg QAM PO 02/05/17 09:00 03/07/17 08:59 02/12/17 07:40 40 MG Ropinirole HCl (Requip Tab) 0.25 mg HS PO 02/05/17 21:00 03/07/17 20:59 02/11/17 21:04 0.25 MG Senna/Docusate Sodium (Senokot S Tab) 1 tab Q24H PRN PO 02/05/17 03:15 03/07/17 03:14 Sucralfate (Carafate Susp) 1 gm Q6H PO 02/05/17 06:00 03/07/17 05:59 02/12/17 17:38 1 GM Tramadol HCl (Ultram Tab) 50 mg Q8H PRN PO 02/05/17 03:15 03/07/17 03:14 02/12/17 09:39 50 MG Miscellaneous Information (Order Awaiting Action) 1 ea QS N/A 02/05/17 08:00 03/07/17 07:59 02/07/17 19:45 1 EA Buspirone HCl (BusPAR TAB) 30 mg BID PO 02/05/17 09:00 03/07/17 08:59 02/12/17 07:41 30 MG Miscellaneous Information (Order Awaiting Action) 1 ea QS N/A 02/05/17 08:00 03/07/17 07:59 02/07/17 19:45 1 EA Varenicline (Chantix) 1 mg BID PO 02/05/17 09:00 03/07/17 08:59 02/12/17 07:40 1 MG Ondansetron HCl (Zofran Inj) 4 mg Q6H PRN IV 02/05/17 03:15 03/07/17 03:14 Heparin Sodium (Porcine) (Heparin Sq 5000 Unit/0.5ml) 5,000 unit Q8 SQ 02/05/17 06:00 03/07/17 05:59 02/12/17 13:54 5,000 UNIT Glucose (Glucose 40% Gel) 15-30 GRAMS 15 GRAMS... UD PRN PO 02/05/17 06:15 03/07/17 06:14 Glucose (Glucose Chew Tab) 4-8 Tablets 4 Tabl... UD PRN PO 02/05/17 06:15 03/07/17 06:14 Dextrose (Dextrose 50% 50ML Syringe) 25-50ML OF 50% DW IV FOR... UD PRN IV 02/05/17 06:15 03/07/17 06:14 Glucagon (Glucagon Inj) 1 mg UD PRN SQ 02/05/17 06:15 03/07/17 06:14 Miscellaneous Information (Consult Glycemic Management Pharmacy) 1 ea UD PRN N/A 02/05/17 12:19 03/07/17 12:18 Lisinopril (Zestril Tab) 10 mg DAILY PO 02/06/17 09:00 03/08/17 08:59 02/12/17 07:38 10 MG Amitriptyline HCl (Elavil Tab) 25 mg HS PO 02/05/17 21:00 03/07/17 20:59 02/11/17 21:04 25 MG Nystatin (Mycostatin Susp) 5 ml QID PO 02/05/17 21:00 02/15/17 20:59 02/12/17 17:37 5 ML Menthol (Nice Adan) 1 adan PRN PRN PO 02/06/17 06:00 03/08/17 05:59 Ipratropium [place] (Atrovent 0.02% 0.5MG/2.5ML Neb) 0.5 mg Q6R INH 02/06/17 09:00 03/08/17 08:59 02/12/17 14:10 0.5 MG Levalbuterol (Xopenex 1.25MG/ 0.5ML Neb) 1.25 mg Q6R INH 02/06/17 09:00 03/08/17 08:59 02/12/17 14:10 1.25 MG Alprazolam (Xanax Tab) 0.5 mg Q6H PRN PO 02/06/17 11:15 03/08/17 11:14 02/06/17 11:36 0.5 MG Levalbuterol (Xopenex 1.25MG/ 3ML Neb) 1.25 mg Q2H PRN INH 02/06/17 11:30 03/08/17 11:29 02/06/17 11:45 1.25 MG Nicotine (Nicoderm Cq 21MG Patch) 1 patch QAM TD 02/07/17 09:00 03/09/17 08:59 02/07/17 08:02 1 PATCH Miscellaneous (Remove Nicoderm Patch) 1 ea HS N/A 02/06/17 21:00 03/08/17 20:59 02/07/17 20:22 1 EA Guaifenesin (Mucinex Contr Rel Tab) 600 mg Q12 PO 02/07/17 09:00 03/09/17 08:59 02/12/17 07:39 600 MG Benzonatate (Tessalon Perles Cap) 100 mg Q8H PRN PO 02/07/17 01:15 03/09/17 01:14 02/12/17 13:30 100 MG Fluticasone Propionate (Flonase Nasal [place]) 2 sprays DAILY NA 02/07/17 10:00 03/09/17 09:59 02/12/17 07:41 2 SPRAYS Azithromycin (Zithromax Tab) 250 mg QAM PO 02/08/17 09:00 02/15/17 08:59 02/12/17 07:39 250 MG Cefepime HCl 2000 mg/Dextrose 112.5 ml @ 200 mls/hr Q12H IV 02/07/17 10:00 02/14/17 09:59 02/12/17 09:40 200 MLS/HR Insulin Aspart (novoLOG ASPART) SLIDING SCALE If C... ACHS SC 02/07/17 21:00 03/09/17 20:59 02/12/17 12:03 6 UNITS Prednisone (PredniSONE TAB) 40 mg DAILY PO 02/12/17 09:00 03/14/17 08:59 02/12/17 07:41 40 MG Insulin Glargine (Lantus Solostar Pen) 5 unit QAM SC 02/12/17 09:15 03/14/17 09:14 02/12/17 09:14 5 UNIT Benzocaine (Orajel 2% Oral Gel) 1 appln Q6H PRN MT 02/12/17 13:00 03/14/17 12:59 02/12/17 13:57 1 APPLN
[2017-02-12] MEDS ORDERED: GLIP2.5T11 PO (18:21)
[2017-02-12] MEDS ORDERED: ATRINS INH (18:21)
[2017-02-12] MEDS ORDERED: PRD10 PO (18:21)
[2017-02-12] MEDS ORDERED: AMT25 PO (18:21)
[2017-02-12] MEDS ORDERED: XPNINS1255 INH (18:21)
[2017-02-12] MEDS ORDERED: ORJ MT (18:21)
--- NOTE | 2017-02-12 18:26 | Discharge Instructions ---
Discharge Instructions Date of Service Feb 12, 2017. Admission Reason for Admission: Sepsis Discharge Discharge Diagnosis / Problem: Acute Exacerbation of COPD Discharge Goals Goal(s): Diagnostic testing, Therapeutic intervention Activity Recommendations Activity Limitations: as noted below (no heavy exertion until re-evaluated by Primary Care Physician) Lifting Limitations: until after follow-up appointment Exercise/Sports Limitations: until after follow-up appointment . Instructions / Follow-Up Instructions / Follow-Up PLEASE REVIEW YOUR NEW MEDICATION LIST AND FOLLOW INSTRUCTIONS CAREFULLY. ALWAYS TAKE YOUR NEW MEDICATION FOR DIABETES- GLIPIZIDE- WITH BREAKFAST. HOLD GLIPIZIDE IF YOUR APPETITE IS POOR AND IS NOT EATING WELL/SKIPPING MEALS. MAKE SURE YOU EAT THREE MEALS A DAY IF YOU ARE TAKING GLIPIZIDE. CALL PRIMARY CARE PHYSICIAN OR RETURN TO ER IMMEDIATELY IF WITH RECURRENCE OF SYMPTOMS, INCREASING COUGH, SHORTNESS OF BREATH, FEVER/CHILLS. FOLLOW UP WITH PRIMARY CARE PHYSICIAN EARLY NEXT WEEK. (CLINIC WILL CALL YOU RE : APPOINTMENT SCHEDULE). Current Hospital Diet Patient's current hospital diet: AHA Diet (Heart Healthy), Diabetes Type 2 Diet Discharge Diet Recommended Diet: AHA Diet (Heart Healthy), Diabetes Type 2 Diet Pending Studies Studies pending at discharge: yes List of pending studies: FLOW CYTOMETRY RESULTS Laboratory Results Hemoglobin A1c Test 02/05/17 06:26 Range/Units Estimated Average Glucose 163 mg/dl Hemoglobin A1c 7.3 H 4.5-5.6 % Medical Emergencies . Who to Call and When: Medical Emergencies: If at any time you feel your situation is an emergency, please call 911 immediately. . Non-Emergent Contact Non-Emergency issues call your: Primary Care Provider Call Non-Emergent contact if: you have a fever, your pain is not controlled, you have any medication questions . . "Provider Documentation" section prepared by Thomas Velasquez. . VTE Core Measure Inpt VTE Proph given/why not?: Unfractionated heparin SQ [place] Drug Monitoring Program Search Results: patient reviewed within database, see additional documentation (no matching patient identified)
[2017-02-12 18:33] VITALS: BP 118/73; PULSE 86; TEMP 36.9; O2SAT 92
--- NOTE | 2017-02-12 18:33 | Discharge Summary ---
Discharge Summary Date of Service Feb 12, 2017. Discharge Summary Admission Date: Feb 05, 2017 at 02:46 Discharge Date: Feb 12, 2017 Discharge Disposition: Home Principal Diagnosis: Acute on chronic hypoxemic respiratory failure 2/2 COPD exacerbation - likely from Acute Bronchitis Secondary Diagnoses/Problems: Please refer to hospital course below. Procedures: CHEST ONE VIEW PORTABLE CLINICAL HISTORY: increased SOB with inc work of breathing dyspnea COMPARISON STUDY: 02/04/2017 FINDINGS: The bones soft tissues and hemidiaphragms are normal. The cardiomediastinal silhouette is normal. The lungs are clear. The pulmonary vasculature is normal. IMPRESSION: Mild emphysematous change. No acute process. No change from the prior exam. Consultations: Pulmonary Dr. Rivera/Angie Pending Studies/Follow-Up: Glipizide started for new diagnosis of DM, please monitor; Follow up Flow Cytometry done at [facility], patient may need referral to [employer] Senior Project Manager; Please refer to hospital course below for further details. Medication Reconciliation New Medications: Glipizide (Glipizide Er) 2.5 Mg Tab 1 TAB PO DAILY for 30 Days, #30 TAB 1 Refill with breakfast Prednisone (Prednisone) 10 Mg Tab 10 MG PO UD, #17 TABS 0 Refills take 4 tabs po daily x 1 day, then take 3 tabs po daily x 2 days, then take 2 tabs po daily x 2 days, then take 1 tab po daily x 2 days, then take 1/2 tab po daily x 2 days, then STOP. Amitriptyline HCl (Amitriptyline HCl) 25 Mg Tab 25 MG PO HS for 30 Days Benzocaine (Hurricaine) 20 % Gel 1 APPLN MT Q6H PRN for pain for 7 Days, #1 TUBE 1 Refill Ipratropium [place] (Ipratropium Webb) 0.5 Mg/2.5 Ml Nebu 0.5 MG INH Q6R for 7 Days, #40 UNIT 1 Refill may also use q4h as needed for shortness of breath/wheezing Levalbuterol (Levalbuterol) 1.25 Mg/0.5 Ml Nebu 1.25 MG INH Q6R for 7 Days, #40 UNIT 1 Refill may also use q4h as needed for shortness of breath/wheezing Continued Medications: Acetaminophen (Tylenol) 325 Mg Tab 650 MG PO Q4H PRN for Mild Pain, TAB MAXIMUM 3 GMS APAP/24 HOURS. Amoxicillin & Pot Clavulanate (Augmentin 875-125 mg) 1 Tab Tab 1 TAB PO BID, TAB RESCUE KIT Aspirin (Aspirin Chewable) 81 Mg Chew 81 MG PO DAILY Atenolol (Tenormin) 25 Mg Tab 25 MG PO DAILY, TAB Azelastine Hcl (Astelin Nasal [place]) 200 Sprays/30 Ml [place] 2 SPRAYS MARIAM BID, BTL Buspirone Hcl (Buspirone Hcl) 30 Mg Tab 30 MG PO BID, TAB Cholecalciferol (Vitamin D3) 50,000 Unit Cap 92319 UNITS PO WK EVERY WEDNESDAY Diphenhy/Alum/Mag/Sucralfa (Magic Swizzle - Diphenhy/Alum/Mag/Sucralfa) Susp 5 ML PO QID, ML 30ML DIPHENHYDRAMINE SLN 12.5/5ML 60ML MAALOX 4GM CARAFATE SWISH AND SPIT Diphenhydramine Hcl (Benadryl Allergy) 25 Mg Tab 25 MG PO UD Fluticasone Propionate (Flovent Hfa) 120 Puffs/5280 Mcg Aero 2 PUFFS INH BID Furosemide (Lasix) 20 Mg Tab 20 MG PO DAILY PRN for FLUID ACCUMULATION/WEIGHT GAIN, TAB Gabapentin (Neurontin) 300 Mg Cap 300 MG PO TID, 0 Refills Guaifenesin (Mucus-Er) 600 Mg Tab 600 MG PO BID Levocetirizine Dihydrochloride (Xyzal) 5 Mg Tab 5 MG PO QPM, TAB Levothyroxine Sodium (Levothyroxine Sodium) 75 Mcg Tab 75 MCG PO DAILY, TAB Lisinopril (Zestril) 10 Mg Tab 10 MG PO DAILY, TAB Nitroglycerin (Nitrostat) 0.4 Mg Tab 0.4 MG UT UD PRN for Chest Pain, BTL PLACE ONE TABLET UNDER THE TONGUE EVERY 5 MINUTES FOR UP TO 3 DOSES IF NEEDED FOR CHEST PAIN. Pantoprazole (Protonix) 40 Mg Tab 40 MG PO QAM, TAB TAKE THIS MEDICATION 30 TO 60 MINUTES PRIOR TO FIRST MEAL OF THE DAY. Paroxetine (Paxil) 40 Mg Tab 40 MG PO QAM, 0 Refills Potassium Chloride (Potassium Chloride Er) 10 Meq Tab 10 MEQ PO BID TAKE THIS MEDICATION TWICE A DAY WITH BREAKFAST AND EVENING MEAL. Prednisone Tab (Prednisone) 10 Mg Tab 10 MG PO UD, TAB RESCUE KIT : 6 TABS DAILY X 4 DAYS 5 TABS DAILY X 4 DAYS 4 TABS DAILY X 4 DAYS 3 TABS DAILY X 4 DAYS 2 TABS DAILY X 4 DAYS 1 TAB DAILY X 4 DAYS. Ropinirole (Requip) 0.25 Mg Tab 0.25 MG PO HS, TAB MAY TAKE A SECOND DOSE IF NO RELIEF IN 2 HRS. Sennosides-Docusate Sodium (Senna/Docusate Sodium) 1 Tab Tab 1 TABLET PO Q24H PRN for Constipation Sucralfate (Sucralfate) 1 Gm/10 Ml [place] 1 GM PO Q6H, ML Tramadol (Ultram) 50 Mg Tab 50 MG PO Q8H PRN for Pain, TAB Umeclidinium-Vilanterol (Anoro Ellipta 62.5-25 Mcg/INH) 1 Aer Aer 1 PUFF INH DAILY Varenicline Tartrate (Chantix) 1 Levi Levi 1 MG PO UD for 28 Days, #1 PKT CONTINUING MONTH PACKET Discontinued Medications: Albuterol Hfa (Ventolin Hfa) 200 Puffs/41148 Mcg Aers 2 PUFFS INH Q6H, #1 INHALER Albuterol Sulf (Proventil 0.083% 2.5MG/3ML) 2.5 Mg/3 Ml Nebu 2.5 MG INH Q4H PRN for Wheezing, EA Amitriptyline Hcl (Elavil) 25 Mg Tab 50 MG PO HS, TAB Clotrimazole (Mycelex) 10 Mg Tro 10 MG MT 5XD PRN, 0 Refills Admission Information HPI (per Admitting provider): CHIEF COMPLAINT: Shortness of breath, cough. HISTORY OF PRESENT ILLNESS: Hx obtained from px and records. Medical history is significant for chronic respiratory failure secondary to COPD on home O2, tobacco abuse, chronic systolic/diastolic heart failure (EF of 55% TTE 2016). hypothyroidism, hypertension. Recent confinement 2013 for respiratory failure secondary to COPD exacerbation. Px subsequently intubated. A 2D echo at that time showed EF of 15-20%. Px seen by Cardiology. Takotsubo vs ACS. No cardiac catheterization done at that time. A few weeks ago, the patient noted cough symptoms, shortness of breath resolved with intake of Augmentin, prednisone home rescue kit. A few days ago, the patient noted cough symptoms, nasal congestion initially clear later white, later yellow-green. Fever 102 at home. No chest pain, increasing shortness of breath. Denies aspiration. Denies weight gain. At the Emergency Room, the patient received Zosyn and breathing treatment. Physical Exam (per Admitting): VITAL SIGNS: Blood pressure is 109/60, pulse rate 105, RR 24, temperature 36.9, sats 95 on 2 liters. GENERAL: Noted to be slightly anxious, tremulous, some respiratory distress. SKIN: Normal color. HEENT: [place] palpebral conjunctivae. Dry mucosa. nasal cannula noted NECK: No JVD. supple CHEST: Decreased breath sounds. HEART: Tachycardic. ABDOMEN: Soft. NT EXTREMITIES: No edema. no tenderness NEUROLOGIC: No gross focality except for rest tremors. Hospital Course 66 year old female with history of COPD on home o2, Smoker, Chronic CHF, HTN, other problems noted below presenting with shortness of breath. Acute on chronic hypoxemic respiratory failure 2/2 COPD exacerbation - likely from Acute Bronchitis - CXR: no pneumonia - was not improving on Doxycycline, Prednisone hence, was started on Bipap, Zosyn, Methylprednisolone IV -- improved, taken off bipap; de escalated Zosyn to Cefepime and Azithromycin x 6 days tapered Solumedrol to prednisone, Nebs q6h given evaluated by Pulmonary- Dr. Rivera/Angie -- improved daily off nasal cannula -- discharge plan: already completed 7 days antibiotics Prednisone taper starting at 40mg Nebs TID continue Ellipta follow up with PCP next week DM 2, new diagnosis -- A1C is 7.3 -- given Radha HODGE -- Pharmacy, DM educator consulted -- will start Glipizide 2.5 mg po BID for now monitor as outpatient Possible CLL - noted on peripheral smear 02/11/17: possible low grade lymphoproliferative disorder: CLL vs. monoclonal b lymphocytosis - flow cytometry ordered please follow up - may need referral to Hematology Oral Candidiasis -- received Fluconazole PO 1 dose 02/05/17 -- given Nystatin -- improved -- Amytriptiline being weaned off CKD-stage III -- stable Chronic systolic heart failure -- euvolemic -- Cont lisinopril and ASA, Atenolol Tobacco use -- Nicotine Patch given Hypothyroidism-TSH stable, cont home Synthroid Anxiety-cont Buspar, decreasing Elavil as above. Dispo d/c home ff up with PCP next week Total time spent on discharge = 45 minutes This includes examination of the patient, discharge planning, medication reconciliation, and communication with other providers. Discharge Instructions Discharge Instructions Date of Service Feb 12, 2017. Admission Reason for Admission: Sepsis Discharge Discharge Diagnosis / Problem: Acute Exacerbation of COPD Discharge Goals Goal(s): Diagnostic testing, Therapeutic intervention Activity Recommendations Activity Limitations: as noted below (no heavy exertion until re-evaluated by Primary Care Physician) Lifting Limitations: until after follow-up appointment Exercise/Sports Limitations: until after follow-up appointment . Instructions / Follow-Up Instructions / Follow-Up PLEASE REVIEW YOUR NEW MEDICATION LIST AND FOLLOW INSTRUCTIONS CAREFULLY. ALWAYS TAKE YOUR NEW MEDICATION FOR DIABETES- GLIPIZIDE- WITH BREAKFAST. HOLD GLIPIZIDE IF YOUR APPETITE IS POOR AND IS NOT EATING WELL/SKIPPING MEALS. MAKE SURE YOU EAT THREE MEALS A DAY IF YOU ARE TAKING GLIPIZIDE. CALL PRIMARY CARE PHYSICIAN OR RETURN TO ER IMMEDIATELY IF WITH RECURRENCE OF SYMPTOMS, INCREASING COUGH, SHORTNESS OF BREATH, FEVER/CHILLS. FOLLOW UP WITH PRIMARY CARE PHYSICIAN EARLY NEXT WEEK. (CLINIC WILL CALL YOU RE : APPOINTMENT SCHEDULE). Current Hospital Diet Patient's current hospital diet: AHA Diet (Heart Healthy), Diabetes Type 2 Diet Discharge Diet Recommended Diet: AHA Diet (Heart Healthy), Diabetes Type 2 Diet Pending Studies Studies pending at discharge: yes List of pending studies: FLOW CYTOMETRY RESULTS Laboratory Results Hemoglobin A1c Test 02/05/17 06:26 Range/Units Estimated Average Glucose 163 mg/dl Hemoglobin A1c 7.3 H 4.5-5.6 % Medical Emergencies . Who to Call and When: Medical Emergencies: If at any time you feel your situation is an emergency, please call 911 immediately. . Non-Emergent Contact Non-Emergency issues call your: Primary Care Provider Call Non-Emergent contact if: you have a fever, your pain is not controlled, you have any medication questions . . "Provider Documentation" section prepared by Thomas Velasquez. . VTE Core Measure Inpt VTE Proph given/why not?: Unfractionated heparin SQ [place] Drug Monitoring Program Search Results: patient reviewed within database, see additional documentation (no matching patient identified)
--- NOTE | 2017-02-12 21:09 | PULMONARY PROGRESS NOTE ---
DATE: 02/12/2017 TIME: 1400. SUBJECTIVE: The patient resting in bed. Denies any problems with her breathing. Denies chest heaviness, sputum production but only with mild residual cough. No hemoptysis or pleuritic pain. She is afebrile. Two-step showed that she does not require oxygen with exertion or ambulation, but she has oxygen at home at 2 liters nocturnally. OBJECTIVE: VITAL SIGNS: Temperature 36.9, pulse 86 and regular, respiratory rate 20, blood pressure 118/73, O2 sat 92% at 2 liters, 90%-92% on room air. SKIN: Without lesion. HEENT: Atraumatic, normocephalic. PERRLA. LUNGS: Distant P&A. No audible wheezes. CARDIAC: Regular rate and rhythm. I do not appreciate a gallop. ABDOMEN: Soft, protuberant. No evidence of hepatosplenomegaly. EXTREMITIES: Trace pedal edema. No clubbing or peripheral cyanosis. NEUROLOGIC: Intact. No lateralizing signs. LABORATORY DATA: Last weight 92 kilograms on February 10. Chest x-ray February 06 showed no acute infiltrate with mild emphysematous changes. Sputum only grew out Ana. Most recent white count 14,000. OVERALL ASSESSMENT: A 66-year-old with chronic obstructive pulmonary disease followed at [facility]/pulmonary, currently on oral prednisone, oral antibiotics in the form of azithromycin along with IV cefepime and aerosolized bronchodilator. I would currently convert patient to oral antibiotics in the form of Zithromax and discontinue the cefepime. I believe the patient is ready to be discharged either tonight or tomorrow on current medication with followup by the pulmonary division at [facility]. I have offered that we would be happy to follow her as an outpatient if in the future she so desired and I have no further suggestions to be made at this point in time. Thank you very much for this consultation.
--- NOTE | 2017-02-12 21:16 | Progress Note ---
Progress Note Date of Service Feb 12, 2017. Progress Note Received consult today for hematology but when I came to see patient for hematology consult the patient was already discharged
--- NOTE | 2017-02-17 17:15 | EDITING REQUIRED CODING QUERY ---
SEPSIS Dear Dr. Velasquez, To promote full compliance with coding requirements relating to patient care, physician participation is requested in all cases of [employer] highways and streets uncertainty. Please assist us with the question(s) below: In responding to this query, please exercise your independent professional judgement. The fact that a question is asked does not imply that any particular answer is desired or expected. We appreciate your clarification on this issue. Sepsis is documented on the H and P but not on the discharge summary. Does the patient have: ( )Bacteremia (Nonspecific laboratory finding of bacteria in the blood) Specify Organism () Present on Admission () Not present on admission () Unable to clinically determine ( ) Septicemia (Systemic disease associated with the presence of pathogenic microorganisms in the blood): Specify Organism () Present on Admission () Not present on admission () Unable to clinically determine ( ) Sepsis Specify Organism Specify Associated Condition/Diagnosis () Present on Admission () Not present on admission () Unable to clinically determine ( ) Severe Sepsis (Sepsis associated with acute organ dysfunction) Specify Organism Specify Associated Condition/Diagnosis () Present on Admission () Not present on admission () Unable to clinically determine ( ) Septic Shock (Severe sepsis with acute circulatory failure, unexplained by other causes) () Present on Admission () Not present on admission () Unable to clinically determine ( ) Other, patient has: (X ) Sepsis was ruled out. Thank you for your time. Mey Gary, PRESSURIZER
--- NOTE | 2017-02-17 17:19 | EDITING REQUIRED CODING QUERY ---
CODING QUERY Dear Dr. Velasquez To promote full compliance with coding requirements relating to patient care, provider participation is requested in all cases of malter operator uncertainty. Please assist us with the question(s) below: Coding Question(s): Community Acquired Pneumonia was documented on the H and P but not on the discharge Summary. Does the patient have: ( ) Community Acquired Pneumonia ( ) Present on admission ( ) Not Present on admission ( ) Unable to determine ( ) Hospital Acquired Pneumonia ( ) Present on admission ( ) Not Present on admission ( ) Unable to determine ( X ) Acute Bronchitis ( X) Present on admission ( ) Not Present on admission ( ) Unable to determine ( ) Other Please Explain: ( ) Unable to determine Physician's Response(s): Thank you for your time. Mey Gary [facility] Principal Diagnosis: "_that condition established after study, to be chiefly responsible for occasioning the admission of the patient to the hospital for care." Co-Existing Principal Diagnosis: "_when two or more diagnoses equally meet the criteria for principal diagnosis as determined by the circumstances of admission, diagnostic work up, and/or therapy provided, and the Alphabetic Index, Tabular List, or another coding guideline does not provide sequencing direction, any one of the diagnoses may be sequenced first." "When the physician has documented what appears to be a current diagnosis in the body of the record, but has not included the diagnosis in the final diagnostic statement, the physician should be asked whether the diagnosis should be added." ([facility] 2 QTR90. p3-4)
--- NOTE | 2017-02-17 17:21 | EDITING REQUIRED CODING QUERY ---
CODING QUERY Dear Dr. Velasquez, To promote full compliance with coding requirements relating to patient care, provider participation is requested in all cases of motorsports technician uncertainty. Please assist us with the question(s) below: Coding Question(s): MANDY was documented on the H and P but not on the discharge summary. Does the patient have: ( ) MANDY (x ) MANDY was ruled out ( ) Other: Please explain ( ) Unable to determine Physician's Response(s): Thank you for your time. Mey Gary [facility] Principal Diagnosis: "_that condition established after study, to be chiefly responsible for occasioning the admission of the patient to the hospital for care." Co-Existing Principal Diagnosis: "_when two or more diagnoses equally meet the criteria for principal diagnosis as determined by the circumstances of admission, diagnostic work up, and/or therapy provided, and the Alphabetic Index, Tabular List, or another coding guideline does not provide sequencing direction, any one of the diagnoses may be sequenced first." "When the physician has documented what appears to be a current diagnosis in the body of the record, but has not included the diagnosis in the final diagnostic statement, the physician should be asked whether the diagnosis should be added." (Source [facility] 2 QTR90. p3-4)
== END 2017-02-12 18:54 | disposition home or self-care (01) | DRG 190 ==
LOC: EDBD 22:51 → C.EDA 22:52 → C.MS2W 02-05 02:46 → ENRESERV 02-05 03:01 → C.2T 02-06 18:39 → ENRESERV 02-08 11:47 → C.MS2W 02-08 14:06
PROVIDERS: ADMIT Hospitalist; ATTEND Internal Medicine
DX: J44.1 Chronic obstructive pulmonary disease with (acute) exacerbation (principal); J96.20 Acute and chronic respiratory failure, unspecified whether with hypoxia or hypercapnia; I50.42 Chronic combined systolic (congestive) and diastolic (congestive) heart failure; B37.0 Candidal stomatitis; I13.0 Hypertensive heart and chronic kidney disease with heart failure and stage 1 through stage 4 chronic kidney disease, or unspecified chronic kidney disease; C91.10 Chronic lymphocytic leukemia of B-cell type not having achieved remission; J44.0 Chronic obstructive pulmonary disease with (acute) lower respiratory infection; J20.9 Acute bronchitis, unspecified; N18.3 Chronic kidney disease, stage 3 (moderate); E11.22 Type 2 diabetes mellitus with diabetic chronic kidney disease; F17.210 Nicotine dependence, cigarettes, uncomplicated; E03.9 Hypothyroidism, unspecified; F41.9 Anxiety disorder, unspecified; E11.65 Type 2 diabetes mellitus with hyperglycemia; T38.0X5A Adverse effect of glucocorticoids and synthetic analogues, initial encounter; D72.829 Elevated white blood cell count, unspecified; F32.9 Major depressive disorder, single episode, unspecified; H35.30 Unspecified macular degeneration; Z86.69 Personal history of other diseases of the nervous system and sense organs; Z82.49 Family history of ischemic heart disease and other diseases of the circulatory system; Z79.899 Other long term (current) drug therapy; Z79.51 Long term (current) use of inhaled steroids; Z79.891 Long term (current) use of opiate analgesic

== ENCOUNTER 2017-07-25 18:23 | Emergency (ER) | payer OTHER ==
[~2017-07-25] VITALS: Ht 170.2 cm; Wt 94.4 kg
[~2017-07-25 18:23] MED LIST changes: -ALBU1AER9 INH; -AMIT25TA9 PO; +AMOX875T PO; +AMT25 PO; +ASTN NAE; +ATRINS INH; -BISA10SU3 PR; -BUDE0.5S INH; +BUSP30TA2 PO; -BUSP5TAB59 PO; +CHOL1CAP95 PO; -CLOT10TR2 MT; -CLR10 PO; +DIPH1TAB87 PO; -DOCU100C31 PO; -ERGO1CAP35 PO; -FLUT0.0529 NAE; +FLVHFA44 INH; +FURO-85 PO; +GLIP2.5T11 PO; +GUAI1TAB PO; -LACT10SO30 PO; -LEVO50TA PO; +LEVO5TAB2 PO; +LEVO75TA5 PO; +LISI-461 PO; -LORA-741 PO; +MAGIC1 PO; +ORJ MT; +PRD10 PO; +PRED10TA PO; +ROPI0.25 PO; -SALM50AE2 INH; -SPRIN/30 INH; +TRAM-10 PO; +UMEC1AER INH; +VAREPAK PO; +XPNINS1255 INH
[2017-07-25 18:35] VITALS: TEMP 36.7; Ht 170.2 cm; Wt 94.4 kg
--- NOTE | 2017-07-25 19:37 | EMERGENCY ROOM VISIT NOTE ---
History Report prepared by Jalen: Ankit Barkley Under the Supervision of: Dr. Ayaan Martinez M.D. First contact with patient: 19:20 Chief Complaint: ARM PAIN Stated Complaint: PAIN IN BOTH ARMS History of Present Illness The patient is a 67 year old white female with a past medical history of COPD, Diabetes, Kidney Disease, heart failure, arthritis who presents to the ED with a cc of worsening bilateral arm pain beginning 10 days ago. She rates her pain as a 7/10 in severity. She describes the pain as an ache. Positive knee pain. The patient states that she was picking up a microwave on 10 days ago. She states that hours later the pain developed and has been increasing since. The patient states that the pain was originally from her shoulder to her elbows, but admits that the aching sensation is now in her forearms. She reports that she took Tylenol and Tramadol for her symptoms without relief. Source of History: patient Onset: 10 days ago Position: arm (bilateral) Symptom Intensity: 7/10 Quality: ache Timing: worsening Modifying Factors (Relieving): tylenol, other (Tramadol) Review of Systems See HPI for pertinent positives and negatives. A total of ten systems were reviewed and were otherwise negative. Past Medical & Surgical Medical Problems: (1) Anxiety (2) COPD (chronic obstructive pulmonary disease) (3) Depression (4) Migraine Surgical Problems: (1) H/O tubal ligation Family History Patient reports no known family medical history. Social History Smoking Status: Never Smoker Marital Status: Housing Status: other Occupation Status: retired Current/Historical Medications Scheduled Amitriptyline HCl (Amitriptyline HCl), 25 MG PO HS Amoxicillin & Pot Clavulanate (Augmentin 875-125 mg), 1 TAB PO BID Aspirin (Aspirin Ec), 81 MG PO QAM Atenolol (Tenormin), 25 MG PO DAILY Azelastine Hcl (Astelin Nasal Lutts), 2 SPRAYS MARIAM BID Buspirone Hcl (Buspirone Hcl), 30 MG PO BID Cholecalciferol (Vitamin D3), 50,000 UNITS PO WK Diphenhy/Alum/Mag/Sucralfa (Magic Swizzle - Diphenhy/Alum/Mag/Sucralfa), 5 ML PO QID Diphenhydramine Hcl (Benadryl Allergy), 25 MG PO UD Fluticasone Propionate (Flovent Hfa), 2 PUFFS INH BID Fluticasone Propionate (Nasal) (Flonase Allergy Relief), 2 SPRAYS MARIAM DAILY Gabapentin (Neurontin), 300 MG PO TID Glipizide (Glipizide Er), 2.5 MG PO QDB Home O2 Therapy (Oxygen), 2 LITERS NA HS Levocetirizine Dihydrochloride (Xyzal), 5 MG PO QPM Levothyroxine Sodium (Levothyroxine Sodium), 75 MCG PO DAILY Lisinopril (Zestril), 10 MG PO DAILY Mometasone Furoate (Nasal) (Mometasone Furoate), 2 SPRAYS MARIAM DAILY Montelukast Sodium (Singulair), 10 MG PO HS Pantoprazole (Protonix), 40 MG PO QAM Paroxetine (Paxil), 40 MG PO QAM Potassium Chloride (Micro-K Ext Rel), 10 MEQ PO BIDM Prednisone Tab (Prednisone), 10 MG PO UD Ropinirole (Requip), 0.25 MG PO HS Sitagliptin Phosphate (Januvia), 100 MG PO QAM Sucralfate (Sucralfate), 1 GM PO Q6H Umeclidinium-Vilanterol (Anoro Ellipta 62.5-25 Mcg/INH), 1 PUFF INH DAILY Varenicline Tartrate (Chantix), 1 MG PO UD Scheduled PRN Benzocaine (Hurricaine), 1 APPLN MT Q6H PRN for Pain Clotrimazole (Mycelex), 10 MG MT 5XD PRN for THRUSH Cyclobenzaprine Hcl (Flexeril), 10 MG PO TID PRN for Muscle Spasms Furosemide (Lasix), 20 MG PO DAILY PRN for FLUID ACCUMULATION/WEIGHT GAIN Guaifenesin Ext Rel (Mucinex Ext Rel), 600 MG PO Q12 PRN for CONGESTION Ipratropium [place] (Atrovent 0.02% Soln), 1 AMP INH Q6H PRN for Wheezing Levalbuterol Hcl (Levalbuterol), 1 AMP INH Q6H PRN for SOB/Wheezing Nitroglycerin (Nitrostat), 0.4 MG UT UD PRN for Chest Pain Tramadol (Ultram), 50 MG PO Q8H PRN for Pain Allergies Coded Allergies: Adhesives (Verified Allergy, Intermediate, RASH, 07/25/17) Quinolones (Verified Allergy, Intermediate, LEVAQUIN, 07/25/17) LEVAQUIN ALLERGY Codeine (Verified Adverse Reaction, Severe, "BECAME ADDICTED TO MED" PREFERS NOT TO TAKE IF POSSIBLE., 07/25/17) Morphine (Verified Adverse Reaction, Severe, ADDICTION-PREFERS NOT TO TAKE IF POSSIBLE., 07/25/17) Physical Exam Vital Signs Date Time Temp Pulse Resp B/P (MAP) Pulse Ox O2 Delivery O2 Flow Rate FiO2 07/25/17 22:02 89 20 139/79 95 07/25/17 20:42 73 20 101/71 96 Room Air 07/25/17 18:35 36.7 92 18 99/65 96 Room Air Physical Exam GENERAL: Awake, alert, well-appearing, NAD, tremulous HENT: Normocephalic, atraumatic. EYES: Normal conjunctiva. Sclera non-icteric. NECK: Supple. No nuchal rigidity. FROM. RESPIRATORY: CTAB, no rhonchi, crackles. Trace wheezes throughout. CARDIAC: RRR, no MRG ABDOMEN: Soft, NTND, BS+ MSK: No chest wall TTP, no LE edema. Pain to bilateral trapezius and shoulders, questionable bilateral pain to upper arms. No obvious deformities. No warmth or swelling to shoulder, elbow, or wrist. NEURO: GCS 15, CN 2-12 intact, moves all 4s on command. NVI to MUR nerves bilateral upper extremity. SKIN: No rash or jaundice noted. Medical Decision & Procedures ER Provider Diagnostic Interpretation: X-ray: Per my interpretation, radiologist review. SINGLE VIEW CHEST CLINICAL HISTORY: Bilateral arm pain. FINDINGS: An AP, portable, upright chest radiograph is compared to study dated 02/06/2017. The examination is degraded by portable technique and apical lordotic positioning. The cardiomediastinal silhouette is unremarkable. There is atherosclerotic calcification of the thoracic aorta. The lungs and pleural spaces are clear. No pneumothorax is seen. The skeletal structures are osteopenic. There is mild thoracic scoliosis. IMPRESSION: No active disease in the chest. Electronically signed by: Rogelio Nugent M.D. 07/25/2017 8:32 PM Dictated Date/Time: 07/25/2017 8:32 PM CERVICAL SPINE 3 VIEWS CLINICAL HISTORY: Bilateral arm pain. FINDINGS: AP, crosstable lateral, and odontoid views of the cervical spine are correlated with MRI of the cervical spine dated 09/17/2013. The skeletal structures are osteopenic. There is no radiographic evidence of fracture or subluxation. Vertebral body height and alignment are maintained. Hyperlordosis is observed. The odontoid process and lateral masses appear intact as seen on the open-mouth view. Multilevel facet arthropathy is observed. The spinous processes are maintained. The spinolaminar line is preserved. there is mild disc space narrowing seen at C5-C6. The disc spaces are otherwise grossly maintained. Tiny posterior discussed by complex is at C5-C6 and C6-C7 may contribute to minimal acquired compromise of the central canal. The prevertebral soft tissues are within normal limites. The partially imaged apical lung parenchyma appears clear. There is atherosclerotic calcification of the thoracic aorta. IMPRESSION: 1. No acute bony abnormality is identified involved the cervical spine. 2. Osteopenia and spondylotic change as above. Medications Administered Medications (Trade) Dose Ordered Sig/Magdalene Route Start Time Stop Time Status Last Admin Dose Admin Tramadol HCl (Ultram Tab) 50 mg NOW STAT PO 07/25/17 19:38 07/25/17 19:40 DC 07/25/17 19:49 50 MG Acetaminophen (Tylenol Tab) 1,000 mg NOW STAT PO 07/25/17 19:38 07/25/17 19:40 DC 07/25/17 19:48 1,000 MG Ibuprofen (Advil Tab) 200 mg NOW STAT PO 07/25/17 19:38 07/25/17 19:41 DC 07/25/17 19:48 200 MG Cyclobenzaprine HCl (Flexeril Tab) 10 mg ONE STAT PO 07/25/17 19:38 07/25/17 19:41 DC 07/25/17 19:48 10 MG ED Course 1921: The patient was evaluated in room A12B. A complete history and physical exam was performed. 2133: I reevaluated the patient. Discussed results and discharge instructions: She verbalized understanding and agreement. The patient is ready for discharge. Medical Decision Triage Nursing notes reviewed. The patient is a 67 year old white female with a past medical history of COPD, Diabetes, Kidney Disease, heart failure, arthritis who presents to the ED with a cc of worsening bilateral arm pain beginning 10 days ago. The patient's presentation and history were concerning for strain, sprain, fracture, dislocation, gout, neuropathy, and radiculopathy. Patient was seen and evaluated the bedside. Patient was complaining of some bilateral arm pain. Patient states that is primarily in her proximal arm distal to the shoulder or proximal to the elbow. Patient has no signs of erythema or swelling of any of the joints during the shoulder or elbow or wrist. Patient is neurovascularly intact distally. Patient states that she did have some pain beginning after Thanksgiving after lifting a microwave. Patient denies any neck pain but does have some bilateral trapezial pain. Patient did have plain films completed along with pain control. Patient felt mildly improved her plain films did not show anything acute. I do not suspect an infectious cause. Patient does have some degenerative changes with age. Patient was told that she is follow-up with her PCP and may also include pain management, physical therapy, orthopedics. Patient was agreeable to the plan of care. Patient was deemed suitable for outpatient follow-up and treatment. Patient was given strict follow-up, discharge, and return precautions. All questions were answered. Patient was deemed suitable for outpatient follow-up at this time. Patient agreed with the plan of care and was safely discharged home. Medication Reconcilliation Current Medication List: was personally reviewed by me Blood Pressure Screening Patient's blood pressure: Normal blood pressure Impression Primary Impression: Arm pain, left Additional Impression: Arm pain, right Scribe Attestation The scribe's documentation has been prepared under my direction and personally reviewed by me in its entirety. I confirm that the note above accurately reflects all work, treatment, procedures, and medical decision making performed by me. Departure Information Dispostion Home / Self-Care Prescriptions Cyclobenzaprine Hcl (FLEXERIL) 10 Mg Tab 10 MG PO TID Y for Muscle Spasms, #12 TAB Prov: Ayaan Martinez M.D. 07/25/17 Referrals No Doctor, Assigned (PCP) [facility] Patient Instructions My [facility] Additional Instructions Please return to the emergency department if you have worsening or recurrent symptoms not amenable to at-home treatment. Please call for a follow-up appointment with her primary care physician. Please take your medications as prescribed. If you have other concerns and/or complaints please feel free to also call your primary care physician's office or return the ED for further evaluation, management, and treatment. You may take tylenol 1000 mg every 6 hours as needed for pain. You may take motrin and tylenol separately or at the same time. Take your medications as prescribed. You have been examined and treated today on an emergency basis only. This is not a substitute for, or an effort to provide, complete comprehensive medical care. It is impossible to recognize and treat all injuries or illnesses in a single emergency department visit. It is therefore important that you follow up closely with [facility], your PCP, and/or your specialist(s). Call as soon as possible for an appointment. Thank you for your time and consideration. I look forward to speaking with you again soon. Please don't hesitate to call us if you have any questions. Problem Qualifiers
[2017-07-25] MEDS ORDERED: ACETAMINOPHEN 500 MG TAB PO STA (19:38)
[2017-07-25] MEDS ORDERED: CYCLOBENZAPRINE HCL 5 MG TAB PO STA (19:38)
[2017-07-25] MEDS ORDERED: IBUPROFEN 200 MG TAB PO STA (19:38)
[2017-07-25] MEDS ORDERED: TRAMADOL HCL 50 MG TAB PO STA (19:38)
--- NOTE | 2017-07-25 20:34 | DIAGNOSTIC IMAGING REPORT ---
SINGLE VIEW CHEST CLINICAL HISTORY: Bilateral arm pain. FINDINGS: An AP, portable, upright chest radiograph is compared to study dated 02/06/2017. The examination is degraded by portable technique and apical lordotic positioning. The cardiomediastinal silhouette is unremarkable. There is atherosclerotic calcification of the thoracic aorta. The lungs and pleural spaces are clear. No pneumothorax is seen. The skeletal structures are osteopenic. There is mild thoracic scoliosis. IMPRESSION: No active disease in the chest. Electronically signed by: Rogelio Nugent M.D. 07/25/2017 8:32 PM Dictated Date/Time: 07/25/2017 8:32 PM
[2017-07-25] MEDS ORDERED: GLIP-197 PO (21:08)
[2017-07-25] MEDS ORDERED: LEVA1.255 INH (21:08)
[2017-07-25] MEDS ORDERED: ORJ MT (21:08)
[2017-07-25] MEDS ORDERED: MONT1TAB3 PO (21:08)
[2017-07-25] MEDS ORDERED: SUCR1TAB PO (21:08)
[2017-07-25] MEDS ORDERED: FLUT0.15 NAE (21:08)
[2017-07-25] MEDS ORDERED: GUAI1TAB55 PO (21:08)
[2017-07-25] MEDS ORDERED: OXGN (21:08)
[2017-07-25] MEDS ORDERED: ASPI81TA28 PO (21:08)
[2017-07-25] MEDS ORDERED: AMT25 PO (21:08)
[2017-07-25] MEDS ORDERED: ATRINSX INH (21:08)
[2017-07-25] MEDS ORDERED: MOME6000 NAE (21:08)
[2017-07-25] MEDS ORDERED: SITA100T3 PO (21:08)
[2017-07-25] MEDS ORDERED: CLOT10TR2 MT (21:08)
[2017-07-25] MEDS ORDERED: POTA10CA28 PO (21:08)
[2017-07-25] MEDS ORDERED: CYCL10TA6 PO (21:39)
[2017-07-25 22:02] VITALS: BP 139/79; PULSE 89; O2SAT 95
--- NOTE | 2017-07-25 22:26 | DIAGNOSTIC IMAGING REPORT ---
CERVICAL SPINE 3 VIEWS CLINICAL HISTORY: Bilateral arm pain. FINDINGS: AP, crosstable lateral, and odontoid views of the cervical spine are correlated with MRI of the cervical spine dated 09/17/2013. The skeletal structures are osteopenic. There is no radiographic evidence of fracture or subluxation. Vertebral body height and alignment are maintained. Hyperlordosis is observed. The odontoid process and lateral masses appear intact as seen on the open-mouth view. Multilevel facet arthropathy is observed. The spinous processes are maintained. The spinolaminar line is preserved. There is mild disc space narrowing seen at C5-C6. The disc spaces are otherwise grossly maintained. Tiny posterior disc osteophyte complexes at C5-C6 and C6-C7 may contribute to minimal acquired compromise of the central canal. The prevertebral soft tissues are within normal limits. The partially imaged apical lung parenchyma appears clear. There is atherosclerotic calcification of the thoracic aorta. IMPRESSION: 1. No acute bony abnormality is identified involving the cervical spine. 2. Osteopenia and spondylotic change as above. Dictated: 07/25/2017 8:25 PM Transcribed: 07/25/2017 10:26 PM [id number] Electronically signed by: Rogelio Nugent M.D. 07/25/2017 10:32 PM Dictated Date/Time: 07/25/2017 8:25 PM
== END 2017-07-25 22:03 | disposition home or self-care (01) ==
LOC: C.EDB 18:24 → C.EDA 22:03
DX: M79.601 Pain in right arm (principal); M79.602 Pain in left arm; J44.9 Chronic obstructive pulmonary disease, unspecified; E11.29 Type 2 diabetes mellitus with other diabetic kidney complication; M19.90 Unspecified osteoarthritis, unspecified site; F41.9 Anxiety disorder, unspecified; F32.9 Major depressive disorder, single episode, unspecified; Z98.51 Tubal ligation status; Z79.82 Long term (current) use of aspirin; Z79.899 Other long term (current) drug therapy; Z79.84 Long term (current) use of oral hypoglycemic drugs; Z99.81 Dependence on supplemental oxygen

== ENCOUNTER 2018-10-08 22:47 | Inpatient (IN) ==
[2018-10-08] MEDS ORDERED: ONDANSETRON INJ 2 MG/ML 2 ML VIAL IV STA (23:11)
[2018-10-08] MEDS ORDERED: SODIUM CHLORIDE 0.9% 1000ML 2,000 ML IV SCH (23:15)
[2018-10-08 23:41] LABS: Basophils # (auto) 0.03 K/uL (0-0.2); Basophils % (auto) 0.2 %; Eosinophils # (auto) 0.62 K/uL (0-0.5); Eosinophils % (auto) 4.3 %; Hematocrit (blood only) 41.7 % (37-47); Hemoglobin 13.9 g/dL (12.0-16.0); Immature Granulocytes # (auto) 0.05 K/uL (0.00-0.02); Immature Granulocytes % (auto) 0.4 %; Lymphocytes # (auto) 3.26 K/uL (1.2-3.4); Lymphocytes % (auto) 22.9 %; Mean Corpuscular Hgb Conc 33.3 g/dL (32-36); Mean Corpuscular Volume 95.2 fL (80-100); Mean Platelet Volume 9.3 fL (7.4-10.4); Monocytes # (auto) 1.16 K/uL (0.11-0.59); Monocytes % (auto) 8.1 %; Neutrophils # (auto) 9.14 K/uL (1.4-6.5); Neutrophils % (auto) 64.1 %; Platelet Count 416 K/uL (130-400); RDW Coefficient of Variation 14.4 % (11.5-14.5); RDW Standard Deviation 50.2 fL (36.4-46.3); Red Blood Count 4.38 M/uL (4.2-5.4); White Blood Count 14.26 K/uL (4.8-10.8)
[2018-10-08 23:51] LABS: INR 1.1 (0.9-1.1); Prothrombin Time 10.7 Seconds (9.0-12.0)
[2018-10-09 00:04] LABS: Alanine Aminotransferase 19 U/L (12-78); Albumin Level 3.1 gm/dl (3.4-5.0); Aspartate Aminotransferase 13 U/L (15-37); BUN Creatinine Ratio 11.8 (10-20); Blood Urea Nitrogen 26 mg/dl (7-18); Calcium 8.6 mg/dl (8.5-10.1); Carbon Dioxide 26 mmol/L (21-32); Chloride 103 mmol/L (98-107); Creatinine Clr Calc Pharmacy 26.2 ml/min; Est GFR (Non-African American) 22.5; Glucose 123 mg/dl (70-99); Potassium 3.8 mmol/L (3.5-5.1); Sodium 137 mmol/L (136-145)
[2018-10-09 00:08] LABS: Albumin Globulin Ratio 0.6 (0.9-2); Alkaline Phosphatase 125 U/L (45-117); Bilirubin,Total 0.2 mg/dl (0.2-1); Globulin 4.8 gm/dl (2.5-4.0); Total Protein 7.9 gm/dl (6.4-8.2); Troponin I < 0.015 ng/ml (0-0.045)
--- NOTE | 2018-10-09 01:08 | Emergency Department Note ---
Entered by Rogelio Choi acting as a scribe for Juan Antonio Schuster DO History of Present Illness General Chief complaint: Fall Stated complaint: FALL, HEAD BLEEDING Source: patient and family (son) History of Present Illness Provider complaint: Fall Onset (ago): hour(s) 1 Location: left and right Maximum Pain Intensity: 5 Quality: + constant Associated symptoms: + denies other symptoms (pain with urination), + cough, + shortness of breath and + other (rhinorrhea ); no chest pain The patient is a 68 year old female who presents to the Emergency Room with complaints of a fall that happened 1 hour prior to arrival. The patient reports that she sat on a chair and began to feel dizzy. At that point, she stated that she passed out and hit her head. The patient rates her overall discomfort as a 5 /10. The patient' son who was bedside adds that when he got to the patient's house, she was "quite wobbly". As a result of the fall, the patient also states that she has right shoulder pain. The patient also notes that she has shortness of breath (due to COPD), a cough, and. rhinorrhea .The patient adds that she is not currently taking a blood thinner. The patient reports that she recently started taking a new medication for her diabetes. The patient denies chest pain , and pain with urination. Home Medications Home Medications Medication Instructions Recorded Confirmed Type amitriptyline 25 mg PO HS 10/09/18 10/09/18 History aspirin [Aspir-81] 81 mg PO DAILY 10/09/18 10/09/18 History atenolol 25 mg PO DAILY 10/09/18 10/09/18 History atorvastatin 10 mg PO HS 10/09/18 10/09/18 History azelastine 2 spray INTRANASAL BID 10/09/18 10/09/18 History calcium carbonate 500 mg PO 5XD PRN 10/09/18 10/09/18 History cholecalciferol (vitamin D3) 50,000 unit PO WK 10/09/18 10/09/18 History clotrimazole 10 mg MUCOUS MEMBRANE 5XD 10/09/18 10/09/18 History diphenhydramine HCl 25 mg PO UD PRN 10/09/18 10/09/18 History fluticasone [Flovent HFA] 2 puff INHALATION BID 10/09/18 10/09/18 History furosemide 20 mg PO DAILY 10/09/18 10/09/18 History gabapentin 300 mg PO TID 10/09/18 10/09/18 History guaifenesin 1 dose PO UD PRN 10/09/18 10/09/18 History guaifenesin 1,200 mg PO Q12H 10/09/18 10/09/18 History inulin [Fiber Gummies] 4 g PO QAM 10/09/18 10/09/18 History ipratropium bromide 2.5 ml INHALATION Q4H PRN 10/09/18 10/09/18 History levalbuterol HCl 1.25 mg INHALATION QID PRN 10/09/18 10/09/18 History levocetirizine 5 mg PO PM 10/09/18 10/09/18 History levothyroxine 75 mcg PO DAILY 10/09/18 10/09/18 History linagliptin [Tradjenta] 5 mg PO DAILY 10/09/18 10/09/18 History lisinopril 10 mg PO DAILY 10/09/18 10/09/18 History mometasone [Nasonex] 2 spray INTRANASAL BID 10/09/18 10/09/18 History montelukast 10 mg PO HS 10/09/18 10/09/18 History nitroglycerin [Nitrostat] 0.4 mg SUBLINGUAL UD PRN 10/09/18 10/09/18 History pantoprazole 40 mg PO QAM 10/09/18 10/09/18 History paroxetine HCl 40 mg PO QAM 10/09/18 10/09/18 History potassium chloride [Klor-Con M10] 10 meq PO BIDM 10/09/18 10/09/18 History ropinirole 0.25 mg PO HS 10/09/18 10/09/18 History sucralfate 1 g PO Q6H 10/09/18 10/09/18 History tramadol 50 mg PO Q6H PRN 10/09/18 10/09/18 History umeclidinium-vilanterol [Anoro 1 puff INHALATION DAILY 10/09/18 10/09/18 History Ellipta] Allergies Allergy/AdvReac Type Severity Reaction Status Date / Time adhesive Allergy Intermediate RASH Verified 01/26/18 06:39 Quinolones Allergy Intermediate LEVAQUIN Verified 01/26/18 06:39 codeine AdvReac Severe "BECAME Verified 01/26/18 06:39 ADDICTED TO MED" PREFERS NOT TO TAKE IF POSSIBLE. morphine AdvReac Severe ADDICTION-PREFERS Verified 01/26/18 06:39 NOT TO TAKE IF POSSIBLE. linagliptin AdvReac Mild hypoglycemi Verified 10/09/18 02:27 a Past Med/Surg History Medical History COPD (chronic obstructive pulmonary disease) (Chronic) Diabetes (Chronic) Social History Current Living Situation: Alone Feels Safe at Home: Yes Safety Concerns: Feels Safe At This Time Smoking Status: Current every day smoker Tobacco Type: cigarettes Hx Alcohol Use: No Hx Substance Use: No Beliefs That Will Affect Care: None Preferred Language: [place] Communication Ability: Effective [employer] Manager Required: No Review of Systems See HPI for pertinent positives & negatives. and A total of 10 systems reviewed and were otherwise negative Physical Exam Vital Signs Vital Signs - 24 hr 10/08/18 22:58 10/08/18 23:26 10/08/18 23:30 Temperature 36.6 C Temperature Source Oral Sepsis Recent Fever Within 48 Hours No Sepsis New/Unexplained Change in Mental Status No Sepsis Action Taken by Nursing No Action Required Pulse Rate 93 H 85 83 Pulse Rate [Left Finger] Pulse Rhythm [Left Finger] Pulse Strength [Left Finger] Respiratory Rate 18 25 H 27 H Respiratory Effort / Characteristics Respiratory Depth Respiratory Pattern Blood Pressure 77/51 L 86/56 L 88/53 L Blood Pressure [Left Arm] Blood Pressure Mean 59 66 64 Blood Pressure Mean [Left Arm] Blood Pressure Position [Left Arm] Pulse Oximetry 92 92 91 Pulse Oximetry [Right Index Finger] Oxygen Delivery Method Oxygen Delivery Method [Right Index Finger] Oxygen Flow Rate 10/08/18 23:37 10/09/18 00:14 10/09/18 00:31 Temperature Temperature Source Sepsis Recent Fever Within 48 Hours Sepsis New/Unexplained Change in Mental Status Sepsis Action Taken by Nursing Pulse Rate 79 79 Pulse Rate [Left Finger] Pulse Rhythm [Left Finger] Pulse Strength [Left Finger] Respiratory Rate 23 28 H Respiratory Effort / Characteristics Respiratory Depth Respiratory Pattern Blood Pressure 99/55 L 98/44 L Blood Pressure [Left Arm] Blood Pressure Mean 69 62 Blood Pressure Mean [Left Arm] Blood Pressure Position [Left Arm] Pulse Oximetry 92 93 93 Pulse Oximetry [Right Index Finger] Oxygen Delivery Method Room Air Oxygen Delivery Method [Right Index Finger] Oxygen Flow Rate 10/09/18 01:01 10/09/18 01:32 10/09/18 02:09 Temperature 36.3 C L Temperature Source Oral Sepsis Recent Fever Within 48 Hours Sepsis New/Unexplained Change in Mental Status Sepsis Action Taken by Nursing Pulse Rate 74 74 Pulse Rate [Left Finger] 80 Pulse Rhythm [Left Finger] Regular Pulse Strength [Left Finger] Normal Respiratory Rate 16 25 H 18 Respiratory Effort / Characteristics Non-Labored Spontaneous Respiratory Depth Normal Respiratory Pattern Regular Blood Pressure 88/60 L 82/57 L Blood Pressure [Left Arm] 112/75 Blood Pressure Mean 69 65 Blood Pressure Mean [Left Arm] 87 Blood Pressure Position [Left Arm] Sitting Pulse Oximetry 95 95 99 Pulse Oximetry [Right Index Finger] Oxygen Delivery Method Room Air Nasal Cannula Oxygen Delivery Method [Right Index Finger] Oxygen Flow Rate 2.5 10/09/18 02:15 10/09/18 02:41 10/09/18 03:00 Temperature Temperature Source Sepsis Recent Fever Within 48 Hours Sepsis New/Unexplained Change in Mental Status Sepsis Action Taken by Nursing Pulse Rate 77 Pulse Rate [Left Finger] Pulse Rhythm [Left Finger] Pulse Strength [Left Finger] Respiratory Rate 26 H Respiratory Effort / Characteristics Non-Labored Spontaneous Respiratory Depth Respiratory Pattern Blood Pressure 103/68 Blood Pressure [Left Arm] Blood Pressure Mean 79 Blood Pressure Mean [Left Arm] Blood Pressure Position [Left Arm] Pulse Oximetry 91 Pulse Oximetry [Right Index Finger] 95 Oxygen Delivery Method Room Air Oxygen Delivery Method [Right Index Finger] Room Air Oxygen Flow Rate 10/09/18 04:09 10/09/18 08:00 10/09/18 11:31 Temperature 36.4 C L Temperature Source Oral Sepsis Recent Fever Within 48 Hours Sepsis New/Unexplained Change in Mental Status Sepsis Action Taken by Nursing Pulse Rate 78 71 Pulse Rate [Left Finger] 74 Pulse Rhythm [Left Finger] Pulse Strength [Left Finger] Respiratory Rate 20 Respiratory Effort / Characteristics Non-Labored Spontaneous SOB on Exertion Respiratory Depth Normal Respiratory Pattern Regular Blood Pressure Blood Pressure [Left Arm] 96/59 L Blood Pressure Mean Blood Pressure Mean [Left Arm] 71 Blood Pressure Position [Left Arm] Lying Pulse Oximetry 91 Pulse Oximetry [Right Index Finger] Oxygen Delivery Method Nasal Cannula Room Air Oxygen Delivery Method [Right Index Finger] Oxygen Flow Rate 10/09/18 15:43 10/09/18 16:00 Temperature 36.3 C L Temperature Source Oral Sepsis Recent Fever Within 48 Hours Sepsis New/Unexplained Change in Mental Status Sepsis Action Taken by Nursing Pulse Rate 73 Pulse Rate [Left Finger] 73 Pulse Rhythm [Left Finger] Pulse Strength [Left Finger] Respiratory Rate 18 Respiratory Effort / Characteristics Respiratory Depth Respiratory Pattern Blood Pressure Blood Pressure [Left Arm] 108/67 Blood Pressure Mean Blood Pressure Mean [Left Arm] 80 Blood Pressure Position [Left Arm] Lying Pulse Oximetry 91 Pulse Oximetry [Right Index Finger] Oxygen Delivery Method Room Air Oxygen Delivery Method [Right Index Finger] Oxygen Flow Rate GENERAL: alert, well appearing, well nourished, no distress, non-toxic HEAD: 3 cm posterior occipital head laceration without venous oozing. EYE EXAM: normal conjunctiva, PERRL and EOM's grossly intact OROPHARYNX: no exudate, no erythema, lips, buccal mucosa, and tongue normal and mucous membranes are moist EARS: TMs clear b/l NECK: supple, no nuchal rigidity, no adenopathy, non-tender CHEST: stable to compression anteriorly and posteriorly LUNGS: clear to auscultation. Normal chest wall mechanics HEART: no murmurs, S1 normal and S2 normal ABDOMEN: abdomen soft, non-tender, normo-active bowel sounds, no masses, no rebound or guarding. PELVIS: stable to compression anteriorly and posteriorly BACK: Back is symmetrical on inspection and there is no deformity, no midline tenderness, no CVA tenderness. UPPER EXTREMITIES: full active and passive range of motion of all joints without tenderness to palpation LOWER EXTREMITIES: full active and passive range of motion of all joints without tenderness to palpation NEURO EXAM: Normal sensorium, cranial nerves II-XII grossly intact, normal speech, no gross weakness of arms, no gross weakness of legs. GCS: 15. Procedures Laceration Laceration 1: Site: scalp Size (cm): 3 Description: linear Depth: simple, single layer Pre-repair: wound explored Skin layer closed with: other (dermabond ) Course 2303: Past medical records reviewed. The patient was evaluated in room B07, and a complete history and physical examination were performed. 0043: I reviewed the patient's case with Dr. Serafin Box Hospitalist. He will evaluate the patient for further management. Consultations Consultation #1: [id number]: I reviewed the patient's case with Dr. Serafin Box Hospitalist. He will evaluate the patient for further management. Time: 00:43 Administered Medications Fluticasone Propionate (Flovent Hfa 110mch) 2 puffs INH BID [facility] Stop: 11/08/18 08:59 Last Admin: 10/09/18 08:33 Dose: 2 puffs Fluticasone Propionate (Flonase) 2 sprays NA BID [facility] Stop: 11/08/18 08:59 Last Admin: 10/09/18 08:32 Dose: 2 sprays Gabapentin (Neurontin) 200 mg PO TID [facility] Stop: 11/08/18 13:59 Last Admin: 10/09/18 13:53 Dose: 200 mg Insulin Aspart (Novolog Flexpen) 0 units SC ACHS [facility] Stop: 11/08/18 02:59 Last Admin: 10/09/18 13:15 Dose: Not Given Admin: 10/09/18 08:33 Dose: Not Given Admin: 10/09/18 02:57 Dose: Not Given Levothyroxine Sodium (Synthroid) 75 mcg PO DAILYBB [facility] Stop: 11/08/18 06:29 Last Admin: 10/09/18 05:58 Dose: 75 mcg Lidocaine (Lidoderm 5%) 1 patch TD QAM [facility] Stop: 11/08/18 09:59 Last Admin: 10/09/18 13:15 Dose: Not Given Miscellaneous (Order Awaiting Action) 1 ea N/A QS [facility] Stop: 11/08/18 07:59 Last Admin: 10/09/18 08:33 Dose: Not Given Miscellaneous (Order Awaiting Action) 1 ea N/A QS [facility] Stop: 11/08/18 07:59 Last Admin: 10/09/18 08:33 Dose: Not Given Miscellaneous (Order Awaiting Action) 1 ea N/A QS [facility] Stop: 11/08/18 07:59 Last Admin: 10/09/18 08:33 Dose: Not Given Pantoprazole Sodium (Protonix) 40 mg PO QAM [facility] Stop: 11/08/18 08:59 Last Admin: 10/09/18 08:34 Dose: 40 mg Paroxetine HCl (Paxil) 40 mg PO QAM [facility] Stop: 11/08/18 08:59 Last Admin: 10/09/18 08:35 Dose: 40 mg Sucralfate (Carafate Tab) 1 gm PO ACHS [facility] Stop: 11/08/18 07:29 Last Admin: 10/09/18 13:15 Dose: 1 gm Admin: 10/09/18 08:34 Dose: 1 gm Discontinued Medications Albuterol (Duoneb) 3 ml NEB NOW STA Stop: 10/09/18 01:46 Last Admin: 10/09/18 02:26 Dose: 3 ml Gabapentin (Neurontin) 200 mg PO TID [facility] Stop: 11/08/18 08:59 Last Admin: 10/09/18 13:20 Dose: Not Given Admin: 10/09/18 08:34 Dose: 200 mg Sodium Chloride (Nss 1000ml) 2,000 mls @ 999 mls/hr IV .Q2H1M [facility] Stop: 10/09/18 01:15 Last Infusion: 10/09/18 01:13 Dose: 0 mls/hr Admin: 10/09/18 00:15 Dose: 999 mls/hr Potassium Chloride/Sodium Chloride (Normal Saline W/20 Meq Kcl) 20 meq in 1, 000 mls @ 500 mls/hr IV .Q2H ONE Stop: 10/09/18 03:07 Last Infusion: 10/09/18 04:03 Dose: 0 mls/hr Admin: 10/09/18 01:49 Dose: 500 mls/hr Ceftriaxone Sodium (Rocephin) 1,000 mg in 50 mls @ 100 mls/hr IV NOW STA Stop: 10/09/18 01:44 Last Infusion: 10/09/18 03:12 Dose: 0 mls/hr Admin: 10/09/18 02:25 Dose: 100 mls/hr Sodium Chloride (Nss 1000ml) 1,000 mls @ 999 mls/hr IV .Q1H1M ONE Stop: 10/09/18 02:16 Last Infusion: 10/09/18 02:26 Dose: 0 mls/hr Admin: 10/09/18 01:30 Dose: 999 mls/hr Magnesium Sulfate/Dextrose (Magnesium Sulfate / D5w) 1 gm in 100 mls @ 100 mls/ hr IV ONE ONE Stop: 10/09/18 03:59 Last Infusion: 10/09/18 04:16 Dose: 0 mls/hr Admin: 10/09/18 03:15 Dose: 100 mls/hr Potassium Chloride/Sodium Chloride (Normal Saline W/20 Meq Kcl) 20 meq in 1, 000 mls @ 100 mls/hr IV .Q10H ONE Stop: 10/09/18 12:59 Last Infusion: 10/09/18 10:44 Dose: 0 mls/hr Admin: 10/09/18 02:57 Dose: 100 mls/hr Potassium Chloride/Sodium Chloride (Normal Saline W/20 Meq Kcl) 20 meq in 1, 000 mls @ 100 mls/hr IV .Q10H ONE Stop: 10/09/18 13:59 Last Infusion: 10/09/18 10:44 Dose: 0 mls/hr Admin: 10/09/18 04:17 Dose: 100 mls/hr Ondansetron HCl (Zofran) 4 mg IV NOW STA Stop: 10/08/18 23:12 Last Admin: 10/09/18 00:15 Dose: 4 mg Medical Decision Making Differential Diagnosis Differential diagnoses include major intracranial, cervical, spinal, thoracic, abdominal, pelvic and neurologic injury. Fracture, contusion, sprain, strain, laceration, abrasions included as well. Medical Records Attestation: I reviewed the patient's medical records. Home Medications Current Medication List: was personally reviewed by me Laboratory Data Attestation: I reviewed the patient's lab results. Result diagrams: 10/09/18 07:22 10/09/18 07:22 Lab Results 10/08/18 10/08/18 10/08/18 Range/Units 23:34 23:34 23:34 WBC 14.26 H (4.8-10.8) K/uL RBC 4.38 (4.2-5.4) M/uL Hgb 13.9 (12.0-16.0) g/dL Hct 41.7 (37-47) % MCV 95.2 (80-100) fL MCH 31.7 (25-34) pg MCHC 33.3 (32-36) g/dL RDW Std Deviation 50.2 H (36.4-46.3) fL RDW Coeff of Scar 14.4 (11.5-14.5) % Plt Count 416 H (130-400) K/uL MPV 9.3 (7.4-10.4) fL Immature Gran % (Auto) 0.4 % Neut % (Auto) 64.1 % Lymph % (Auto) 22.9 % [place] % (Auto) 8.1 % Eos % (Auto) 4.3 % Baso % (Auto) 0.2 % Immature Gran # (Auto) 0.05 H (0.00-0.02) K/uL Neut # (Auto) 9.14 H (1.4-6.5) K/uL Lymph # (Auto) 3.26 (1.2-3.4) K/uL [place] # (Auto) 1.16 H (0.11-0.59) K/uL Eos # (Auto) 0.62 H (0-0.5) K/uL Baso # (Auto) 0.03 (0-0.2) K/uL PT 10.7 (9.0-12.0) Seconds INR 1.1 (0.9-1.1) Sodium 137 (136-145) mmol/L Potassium 3.8 (3.5-5.1) mmol/L Chloride 103 (98-107) mmol/L Carbon Dioxide 26 (21-32) mmol/L Anion Gap 8.0 (3-11) BUN 26 H (7-18) mg/dl Creatinine 2.20 H (0.6-1.2) mg/dl Est Cr Clr Drug Dosing 26.2 ml/min Est GFR ( Amer) 26.0 Est GFR (Non-Af Amer) 22.5 BUN/Creatinine Ratio 11.8 (10-20) Glucose 123 H (70-99) mg/dl POC Glucose (70-99) Lactate (0.4-2.0) mmol/L Calcium 8.6 (8.5-10.1) mg/dl Magnesium (1.8-2.4) mg/dl Total Bilirubin 0.2 (0.2-1) mg/dl AST 13 L (15-37) U/L ALT 19 (12-78) U/L Alkaline Phosphatase 125 H (45-117) U/L Total Creatine Kinase (26-192) U/L Troponin I < 0.015 (0-0.045) ng/ml Total Protein 7.9 (6.4-8.2) gm/dl Albumin 3.1 L (3.4-5.0) gm/dl Globulin 4.8 H (2.5-4.0) gm/dl Albumin/Globulin Ratio 0.6 L (0.9-2) Procalcitonin (0-0.5) ng/ml TSH (0.300-4.500) uIu/ml Urine Color Urine Appearance (Clear) Urine pH (4.5-7.5) Ur Specific [place] (1.000-1.030) Urine Protein (Negative) Urine Glucose (UA) (Negative) Urine Ketones (Negative) Urine Blood (Negative) Urine Nitrite (Negative) Urine Bilirubin (Negative) Urine Urobilinogen (Negative) Ur Leukocyte Esterase (Negative) Blood Type Antibody Screen 10/09/18 10/09/18 10/09/18 Range/Units 01:21 01:21 01:21 WBC (4.8-10.8) K/uL RBC (4.2-5.4) M/uL Hgb (12.0-16.0) g/dL Hct (37-47) % MCV (80-100) fL MCH (25-34) pg MCHC (32-36) g/dL RDW Std Deviation (36.4-46.3) fL RDW Coeff of Scar (11.5-14.5) % Plt Count (130-400) K/uL MPV (7.4-10.4) fL Immature Gran % (Auto) % Neut % (Auto) % Lymph % (Auto) % [place] % (Auto) % Eos % (Auto) % Baso % (Auto) % Immature Gran # (Auto) (0.00-0.02) K/uL Neut # (Auto) (1.4-6.5) K/uL Lymph # (Auto) (1.2-3.4) K/uL [place] # (Auto) (0.11-0.59) K/uL Eos # (Auto) (0-0.5) K/uL Baso # (Auto) (0-0.2) K/uL PT (9.0-12.0) Seconds INR (0.9-1.1) Sodium (136-145) mmol/L Potassium (3.5-5.1) mmol/L Chloride (98-107) mmol/L Carbon Dioxide (21-32) mmol/L Anion Gap (3-11) BUN (7-18) mg/dl Creatinine (0.6-1.2) mg/dl Est Cr Clr Drug Dosing ml/min Est GFR ( Amer) Est GFR (Non-Af Amer) BUN/Creatinine Ratio (10-20) Glucose (70-99) mg/dl POC Glucose (70-99) Lactate 1.2 (0.4-2.0) mmol/L Calcium (8.5-10.1) mg/dl Magnesium 1.8 (1.8-2.4) mg/dl Total Bilirubin (0.2-1) mg/dl AST (15-37) U/L ALT (12-78) U/L Alkaline Phosphatase (45-117) U/L Total Creatine Kinase 44 (26-192) U/L Troponin I (0-0.045) ng/ml Total Protein (6.4-8.2) gm/dl Albumin (3.4-5.0) gm/dl Globulin (2.5-4.0) gm/dl Albumin/Globulin Ratio (0.9-2) Procalcitonin 0.07 (0-0.5) ng/ml TSH 1.990 (0.300-4.500) uIu/ml Urine Color Urine Appearance (Clear) Urine pH (4.5-7.5) Ur Specific [place] (1.000-1.030) Urine Protein (Negative) Urine Glucose (UA) (Negative) Urine Ketones (Negative) Urine Blood (Negative) Urine Nitrite (Negative) Urine Bilirubin (Negative) Urine Urobilinogen (Negative) Ur Leukocyte Esterase (Negative) Blood Type Antibody Screen 10/09/18 10/09/18 10/09/18 Range/Units 02:53 07:22 07:22 WBC 12.46 H (4.8-10.8) K/uL RBC 3.97 L (4.2-5.4) M/uL Hgb 12.6 (12.0-16.0) g/dL Hct 39.1 (37-47) % MCV 98.5 (80-100) fL MCH 31.7 (25-34) pg MCHC 32.2 (32-36) g/dL RDW Std Deviation 52.4 H (36.4-46.3) fL RDW Coeff of Sacr 14.6 H (11.5-14.5) % Plt Count 343 (130-400) K/uL MPV 9.1 (7.4-10.4) fL Immature Gran % (Auto) 0.3 % Neut % (Auto) 52.5 % Lymph % (Auto) 35.2 % [place] % (Auto) 8.8 % Eos % (Auto) 3.1 % Baso % (Auto) 0.1 % Immature Gran # (Auto) 0.04 H (0.00-0.02) K/uL Neut # (Auto) 6.54 H (1.4-6.5) K/uL Lymph # (Auto) 4.38 H (1.2-3.4) K/uL [place] # (Auto) 1.10 H (0.11-0.59) K/uL Eos # (Auto) 0.39 (0-0.5) K/uL Baso # (Auto) 0.01 (0-0.2) K/uL PT (9.0-12.0) Seconds INR (0.9-1.1) Sodium 141 (136-145) mmol/L Potassium 3.9 (3.5-5.1) mmol/L Chloride 112 H (98-107) mmol/L Carbon Dioxide 26 (21-32) mmol/L Anion Gap 3.0 (3-11) BUN 20 H (7-18) mg/dl Creatinine 1.61 H D (0.6-1.2) mg/dl Est Cr Clr Drug Dosing 35.9 ml/min Est GFR ( Amer) 38.0 Est GFR (Non-Af Amer) 32.8 BUN/Creatinine Ratio 12.4 (10-20) Glucose 97 (70-99) mg/dl POC Glucose 110 H (70-99) Lactate (0.4-2.0) mmol/L Calcium 7.5 L (8.5-10.1) mg/dl Magnesium (1.8-2.4) mg/dl Total Bilirubin (0.2-1) mg/dl AST (15-37) U/L ALT (12-78) U/L Alkaline Phosphatase (45-117) U/L Total Creatine Kinase (26-192) U/L Troponin I (0-0.045) ng/ml Total Protein (6.4-8.2) gm/dl Albumin (3.4-5.0) gm/dl Globulin (2.5-4.0) gm/dl Albumin/Globulin Ratio (0.9-2) Procalcitonin (0-0.5) ng/ml TSH (0.300-4.500) uIu/ml Urine Color Urine Appearance (Clear) Urine pH (4.5-7.5) Ur Specific [place] (1.000-1.030) Urine Protein (Negative) Urine Glucose (UA) (Negative) Urine Ketones (Negative) Urine Blood (Negative) Urine Nitrite (Negative) Urine Bilirubin (Negative) Urine Urobilinogen (Negative) Ur Leukocyte Esterase (Negative) Blood Type Antibody Screen 10/09/18 10/09/18 10/09/18 Range/Units 07:22 07:26 09:00 WBC (4.8-10.8) K/uL RBC (4.2-5.4) M/uL Hgb (12.0-16.0) g/dL Hct (37-47) % MCV (80-100) fL MCH (25-34) pg MCHC (32-36) g/dL RDW Std Deviation (36.4-46.3) fL RDW Coeff of Scar (11.5-14.5) % Plt Count (130-400) K/uL MPV (7.4-10.4) fL Immature Gran % (Auto) % Neut % (Auto) % Lymph % (Auto) % [place] % (Auto) % Eos % (Auto) % Baso % (Auto) % Immature Gran # (Auto) (0.00-0.02) K/uL Neut # (Auto) (1.4-6.5) K/uL Lymph # (Auto) (1.2-3.4) K/uL [place] # (Auto) (0.11-0.59) K/uL Eos # (Auto) (0-0.5) K/uL Baso # (Auto) (0-0.2) K/uL PT (9.0-12.0) Seconds INR (0.9-1.1) Sodium (136-145) mmol/L Potassium (3.5-5.1) mmol/L Chloride (98-107) mmol/L Carbon Dioxide (21-32) mmol/L Anion Gap (3-11) BUN (7-18) mg/dl Creatinine (0.6-1.2) mg/dl Est Cr Clr Drug Dosing ml/min Est GFR ( Amer) Est GFR (Non-Af Amer) BUN/Creatinine Ratio (10-20) Glucose (70-99) mg/dl POC Glucose 114 H (70-99) Lactate (0.4-2.0) mmol/L Calcium (8.5-10.1) mg/dl Magnesium (1.8-2.4) mg/dl Total Bilirubin (0.2-1) mg/dl AST (15-37) U/L ALT (12-78) U/L Alkaline Phosphatase (45-117) U/L Total Creatine Kinase (26-192) U/L Troponin I (0-0.045) ng/ml Total Protein (6.4-8.2) gm/dl Albumin (3.4-5.0) gm/dl Globulin (2.5-4.0) gm/dl Albumin/Globulin Ratio (0.9-2) Procalcitonin (0-0.5) ng/ml TSH (0.300-4.500) uIu/ml Urine Color Yellow Urine Appearance Clear (Clear) Urine pH 5.0 (4.5-7.5) Ur Specific [place] 1.015 (1.000-1.030) Urine Protein Negative (Negative) Urine Glucose (UA) Negative (Negative) Urine Ketones Negative (Negative) Urine Blood Negative (Negative) Urine Nitrite Negative (Negative) Urine Bilirubin Negative (Negative) Urine Urobilinogen Negative (Negative) Ur Leukocyte Esterase Negative (Negative) Blood Type A Positive Antibody Screen NEGATIVE 10/09/18 10/09/18 Range/Units 11:38 16:31 WBC (4.8-10.8) K/uL RBC (4.2-5.4) M/uL Hgb (12.0-16.0) g/dL Hct (37-47) % MCV (80-100) fL MCH (25-34) pg MCHC (32-36) g/dL RDW Std Deviation (36.4-46.3) fL RDW Coeff of Scar (11.5-14.5) % Plt Count (130-400) K/uL MPV (7.4-10.4) fL Immature Gran % (Auto) % Neut % (Auto) % Lymph % (Auto) % [place] % (Auto) % Eos % (Auto) % Baso % (Auto) % Immature Gran # (Auto) (0.00-0.02) K/uL Neut # (Auto) (1.4-6.5) K/uL Lymph # (Auto) (1.2-3.4) K/uL [place] # (Auto) (0.11-0.59) K/uL Eos # (Auto) (0-0.5) K/uL Baso # (Auto) (0-0.2) K/uL PT (9.0-12.0) Seconds INR (0.9-1.1) Sodium (136-145) mmol/L Potassium (3.5-5.1) mmol/L Chloride (98-107) mmol/L Carbon Dioxide (21-32) mmol/L Anion Gap (3-11) BUN (7-18) mg/dl Creatinine (0.6-1.2) mg/dl Est Cr Clr Drug Dosing ml/min Est GFR ( Amer) Est GFR (Non-Af Amer) BUN/Creatinine Ratio (10-20) Glucose (70-99) mg/dl POC Glucose 105 H 91 (70-99) Lactate (0.4-2.0) mmol/L Calcium (8.5-10.1) mg/dl Magnesium (1.8-2.4) mg/dl Total Bilirubin (0.2-1) mg/dl AST (15-37) U/L ALT (12-78) U/L Alkaline Phosphatase (45-117) U/L Total Creatine Kinase (26-192) U/L Troponin I (0-0.045) ng/ml Total Protein (6.4-8.2) gm/dl Albumin (3.4-5.0) gm/dl Globulin (2.5-4.0) gm/dl Albumin/Globulin Ratio (0.9-2) Procalcitonin (0-0.5) ng/ml TSH (0.300-4.500) uIu/ml Urine Color Urine Appearance (Clear) Urine pH (4.5-7.5) Ur Specific [place] (1.000-1.030) Urine Protein (Negative) Urine Glucose (UA) (Negative) Urine Ketones (Negative) Urine Blood (Negative) Urine Nitrite (Negative) Urine Bilirubin (Negative) Urine Urobilinogen (Negative) Ur Leukocyte Esterase (Negative) Blood Type Antibody Screen Imaging Data Attestation: I personally reviewed and interpreted this imaging study as follows : My Impression: A one view study of the chest was reviewed and was negative for infiltrate, effusion, pneumothorax, or wide mediastinum. Radiologist's Impression: Radiology results as stated below per my review and the radiologist's interpretation: CT T SPINE: No fracture Radiologist: Sebastian Arita MD CT C SPINE: No fracture Radiologist: Sebastian Arita MD CT HEAD: No acute hemoorrhage or fracture. Partial opacification of the left maxillary sinus. Radiologist: Sebastian Arita MD Blood Pressure Blood Pressure Findings: Low blood pressure Blood Pressure Disposition: further management by hospitalist [facility] Narrative Patient is a 68-year-old female who presents the ER following a syncopal episode. Upon presentation she was hypertensive with systolic blood pressure in the 70s. She has no other complaints at this time. CT head and cervical spine were unremarkable. Chest x-ray was unremarkable as well. Labs were obtained and showed a leukocytosis of 14,000. INR was normal. BMP with a creatinine of 2.2 up of a baseline of 1.2. LFTs was unremarkable and troponin was negative. EKG showed no signs of ischemia. UA was not obtained but she has no urinary complaints. She was given 2.5 L of IV normal saline. Systolic pressures trended up to the low 100s. Laceration of her head was repaired by myself. Tetanus was updated within the past year. She is updated bedside. She was sent for duplex of the lower extremities with the pulse ox in the low 90s and the blood pressure did consider PE. Unable to scan secondary to the creatinine. Patient was discussed with the hospitalist. Patient and son were updated at bedside. She is admitted for further workup. I did cover her with a dose of Rocephin in case she did have a UTI which was still not obtained on admission. Impression & Plan Syncope, Acute hypotension, Laceration Discharge Plan Visit Data *Final* Discharge Date/Time: 10/09/18 02:24 Chief Complaint: Fall Stated Complaint: FALL, HEAD BLEEDING ED Provider: Juan Antonio Schuster Discharge Problem: Syncope, Acute hypotension, Laceration Patient Disposition: Admitted As Inpatient Discharge Instructions Interventions: ED Discharge Assessment Last Done: 10/09/18 02:24 The scribe's documentation has been prepared under my direction and personally reviewed by me in its entirety. I confirm that the note above accurately reflects all work, treatment, procedures, and medical decision making performed by me.
[2018-10-09] MEDS: NSS + 20MEQ KCL 20 MEQ/1,000 ML BAG IV ONE ×2 (01:12→01:49)
[2018-10-09] MEDS ORDERED: cefTRIAXone SODIUM 1,000 MG/50 ML BAG IV STA (01:15)
[2018-10-09] MEDS ORDERED: SODIUM CHLORIDE 0.9% 1000ML 1,000 ML IV ONE (01:16)
[2018-10-09] MEDS ORDERED: ALBUT/IPRATROP 3MG/0.5MG NEB 3 ML VIAL NEB STA (01:45)
--- NOTE | 2018-10-09 01:46 | History & Physical Report ---
Date of Service October 09, 2018 Assessment & Plan (1) Syncope: Multifactorial : Orthostasis, hypotension, ARF on CRI ? Hypoglycemia from new Linagliptin Rx Rule out cardiac dysfunction Traumatic scalp wound secondary to above status post repair Posttraumatic right shoulder pain rule out bony injury Chronic diastolic heart failure EF 55%, patient on the dry side chronic respiratory failure secondary to COPD on home O2 at night, respiratory status at baseline hypothyroidism, euthyroid as of today's TSH DM 2 on oral meds, well controlled as of recent outpatient hemoglobin A1c of 6.5 last July 2018 ongoing tobacco abuse. Medical telemetry Baseline UA, monitor creatinine response to IVF Appropriate to hold home antihypertensives for now Hold Linagliptin, add medication to patient's ADR list for now TTE RE syncope Right shoulder x-ray RE posttraumatic pain Nicotine patch as needed Wound care for scalp wound , hold aspirin until hemoglobin stable ISS BG goal 140-180 DVT prophylaxis. SCDs RE traumatic scalp wound Full code History of Present Illness Chief Complaint: Passing out, head trauma Primary Care Provider: Dr. Davey History obtained from patient, family, and records. Medical history is significant for chronic respiratory failure secondary to COPD on home O2 at night, chronic systolic/diastolic heart failure (EF of 55% TTE 2016). hypothyroidism, hypertension, DM 2 on oral meds, CRI baseline creatinine 1.4, ongoing tobacco abuse. Recent confinement 2017 for COPD exacerbation. Last week patient started by PCP's office on linagliptin to replace sitagliptin because of insurance issues. Patient noted blood sugars to be lower than usual, 80s-90s. She was advised to continue linagliptin as medication may still be noted to her system. Last night patient felt dizzy lightheaded causing her to sit down on the chair. Patient woke up moments later on the floor with a painful bleeding scalp wound on the right side of her head. No chest pain, no S OB, no tongue biting no incontinence. Patient also noted achy right shoulder pain. Patient thought her blood sugars might be low. Started eating some candy. Patient alerted her son. BG at home noted to be 80. Patient brought to the emergency room for evaluation. SBP noted to be 70s on arrival at the ER. Medical History as above Surgical History : BTL, sinus surgery, nasal septum repair, wrist surgery cataract surgery Family History : Heart disease, Personal/Social history : Half pack daily, no chronic EtOH intake, disabled Allergies Allergy/AdvReac Type Severity Reaction Status Date / Time adhesive Allergy Intermediate RASH Verified 01/26/18 06:39 Quinolones Allergy Intermediate LEVAQUIN Verified 01/26/18 06:39 codeine AdvReac Severe "BECAME Verified 01/26/18 06:39 ADDICTED TO MED" PREFERS NOT TO TAKE IF POSSIBLE. morphine AdvReac Severe ADDICTION-PREFERS Verified 01/26/18 06:39 NOT TO TAKE IF POSSIBLE. linagliptin AdvReac Mild hypoglycemi Verified 10/09/18 02:27 a Home Medications Home Medications Medication Instructions Recorded Confirmed Type amitriptyline 25 mg PO HS 10/09/18 10/09/18 History aspirin [Aspir-81] 81 mg PO DAILY 10/09/18 10/09/18 History atenolol 25 mg PO DAILY 10/09/18 10/09/18 History atorvastatin 10 mg PO HS 10/09/18 10/09/18 History azelastine 2 spray INTRANASAL BID 10/09/18 10/09/18 History calcium carbonate 500 mg PO 5XD PRN 10/09/18 10/09/18 History cholecalciferol (vitamin D3) 50,000 unit PO WK 10/09/18 10/09/18 History clotrimazole 10 mg MUCOUS MEMBRANE 5XD 10/09/18 10/09/18 History diphenhydramine HCl 25 mg PO UD PRN 10/09/18 10/09/18 History fluticasone [Flovent HFA] 2 puff INHALATION BID 10/09/18 10/09/18 History furosemide 20 mg PO DAILY 10/09/18 10/09/18 History gabapentin 300 mg PO TID 10/09/18 10/09/18 History guaifenesin 1 dose PO UD PRN 10/09/18 10/09/18 History guaifenesin 1,200 mg PO Q12H 10/09/18 10/09/18 History inulin [Fiber Gummies] 4 g PO QAM 10/09/18 10/09/18 History ipratropium bromide 2.5 ml INHALATION Q4H PRN 10/09/18 10/09/18 History levalbuterol HCl 1.25 mg INHALATION QID PRN 10/09/18 10/09/18 History levocetirizine 5 mg PO PM 10/09/18 10/09/18 History levothyroxine 75 mcg PO DAILY 10/09/18 10/09/18 History linagliptin [Tradjenta] 5 mg PO DAILY 10/09/18 10/09/18 History lisinopril 10 mg PO DAILY 10/09/18 10/09/18 History mometasone [Nasonex] 2 spray INTRANASAL BID 10/09/18 10/09/18 History montelukast 10 mg PO HS 10/09/18 10/09/18 History nitroglycerin [Nitrostat] 0.4 mg SUBLINGUAL UD PRN 10/09/18 10/09/18 History pantoprazole 40 mg PO QAM 10/09/18 10/09/18 History paroxetine HCl 40 mg PO QAM 10/09/18 10/09/18 History potassium chloride [Klor-Con M10] 10 meq PO BIDM 10/09/18 10/09/18 History ropinirole 0.25 mg PO HS 10/09/18 10/09/18 History sucralfate 1 g PO Q6H 10/09/18 10/09/18 History tramadol 50 mg PO Q6H PRN 10/09/18 10/09/18 History umeclidinium-vilanterol [Anoro 1 puff INHALATION DAILY 10/09/18 10/09/18 History Ellipta] Past Med/Surg History Medical History COPD (chronic obstructive pulmonary disease) (Chronic) Diabetes (Chronic) Social History Current Living Situation: Alone Feels Safe at Home: Yes Safety Concerns: Feels Safe At This Time Smoking Status: Current every day smoker Tobacco Type: cigarettes Hx Alcohol Use: No Hx Substance Use: No Beliefs That Will Affect Care: None Preferred Language: Turkish Communication 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 Review of Systems As per HPI, all 10 systems reviewed, all other ROS negative Physical Exam 2 Vital Signs (Past 24 Hours): Last Vital Signs Temp 36.6 C 10/08/18 22:58 Pulse 83 10/08/18 23:30 Resp 27 H 10/08/18 23:30 BP 88/53 L 10/08/18 23:30 Pulse Ox 92 10/08/18 23:37 Physical Exam: GENERAL: Slightly uncomfortable, slightly tremulous, no respiratory distress SKIN: Normal color, warm HEENT: Dried blood right scalp, pink palpebral conjunctivae, no ptosis, dry buccal mucosa NECK : Supple, no tenderness CHEST : Decreased breath sounds, occasional scattered wheeze , no tenderness HEART : RRR, no obvious murmurs ABDOMEN: Some distention, nontender EXTREMITIES : No LE swelling/tenderness, no other conspicuous deformities noted NEUROLOGIC : Coherent, no facial asymmetry, no other gross focality Results & Data Laboratory Results Laboratory Results WBC 14.26 K/uL (4.8-10.8) H 10/08/18 23:34 RBC 4.38 M/uL (4.2-5.4) 10/08/18 23:34 Hgb 13.9 g/dL (12.0-16.0) 10/08/18 23:34 Hct 41.7 % (37-47) 10/08/18 23:34 MCV 95.2 fL (80-100) 10/08/18 23:34 MCH 31.7 pg (25-34) 10/08/18 23:34 MCHC 33.3 g/dL (32-36) 10/08/18 23:34 RDW Std Deviation 50.2 fL (36.4-46.3) H 10/08/18 23:34 RDW Coeff of Scar 14.4 % (11.5-14.5) 10/08/18 23:34 Plt Count 416 K/uL (130-400) H 10/08/18 23:34 MPV 9.3 fL (7.4-10.4) 10/08/18 23:34 Immature Gran % (Auto) 0.4 % 10/08/18 23:34 Neut % (Auto) 64.1 % 10/08/18 23:34 Lymph % (Auto) 22.9 % 10/08/18 23:34 Merrick % (Auto) 8.1 % 10/08/18 23:34 Eos % (Auto) 4.3 % 10/08/18 23:34 Baso % (Auto) 0.2 % 10/08/18 23:34 Immature Gran # (Auto) 0.05 K/uL (0.00-0.02) H 10/08/18 23:34 Neut # (Auto) 9.14 K/uL (1.4-6.5) H 10/08/18 23:34 Lymph # (Auto) 3.26 K/uL (1.2-3.4) 10/08/18 23:34 Merrick # (Auto) 1.16 K/uL (0.11-0.59) H 10/08/18 23:34 Eos # (Auto) 0.62 K/uL (0-0.5) H 10/08/18 23:34 Baso # (Auto) 0.03 K/uL (0-0.2) 10/08/18 23:34 PT 10.7 Seconds (9.0-12.0) 10/08/18 23:34 INR 1.1 (0.9-1.1) 10/08/18 23:34 Sodium 137 mmol/L (136-145) 10/08/18 23:34 Potassium 3.8 mmol/L (3.5-5.1) 10/08/18 23:34 Chloride 103 mmol/L (98-107) 10/08/18 23:34 Carbon Dioxide 26 mmol/L (21-32) 10/08/18 23:34 Anion Gap 8.0 (3-11) 10/08/18 23:34 BUN 26 mg/dl (7-18) H 10/08/18 23:34 Creatinine 2.20 mg/dl (0.6-1.2) H 10/08/18 23:34 Est Cr Clr Drug Dosing 26.2 ml/min 10/08/18 23:34 Est GFR ( Amer) 26.0 10/08/18 23:34 Est GFR (Non-Af Amer) 22.5 10/08/18 23:34 BUN/Creatinine Ratio 11.8 (10-20) 10/08/18 23:34 Glucose 123 mg/dl (70-99) H 10/08/18 23:34 Calcium 8.6 mg/dl (8.5-10.1) 10/08/18 23:34 Total Bilirubin 0.2 mg/dl (0.2-1) 10/08/18 23:34 AST 13 U/L (15-37) L 10/08/18 23:34 ALT 19 U/L (12-78) 10/08/18 23:34 Alkaline Phosphatase 125 U/L (45-117) H 10/08/18 23:34 Troponin I < 0.015 ng/ml (0-0.045) 10/08/18 23:34 Total Protein 7.9 gm/dl (6.4-8.2) 10/08/18 23:34 Albumin 3.1 gm/dl (3.4-5.0) L 10/08/18 23:34 Globulin 4.8 gm/dl (2.5-4.0) H 10/08/18 23:34 Albumin/Globulin Ratio 0.6 (0.9-2) L 10/08/18 23:34 Diagnostic Findings Chest x-ray: No active disease EKG as per my interpretation : Rate 85, NSR, no ischemia CT head initial read: No acute pathology CT cervical spine initial read no fracture, no dislocation _ (1) Syncope Encounter type: Syncope type: unspecified Qualified Code(s): R55 - Syncope and collapse
[2018-10-09 01:58] LABS: Magnesium 1.8 mg/dl (1.8-2.4)
[2018-10-09] MEDS ORDERED: NITROGLYCERIN SL 0.4 MG/TAB TAB SL PRN (02:41)
[2018-10-09] MEDS ORDERED: PROCHLORPERAZINE 5 MG in SYRINGE 4 ML IV PRN (02:41)
[2018-10-09] MEDS ORDERED: ALBUT/IPRATROP 3MG/0.5MG NEB 3 ML VIAL NEB PRN (02:41)
[2018-10-09] MEDS ORDERED: GLUCOSE 40% GEL 15 GM TUBE PO PRN (02:41)
[2018-10-09] MEDS ORDERED: CARBOHYDRATES FOR HYPOGLYCEMIA PO PRN (02:41)
[2018-10-09] MEDS ORDERED: GLUCAGON FOR INJ 1 MG VIAL SQ PRN (02:41)
[2018-10-09] MEDS ORDERED: TRAMADOL HCL 50 MG TABLET PO PRN (02:41)
[2018-10-09] MEDS ORDERED: DEXTROSE 50% 50 ML SYRINGE IV PRN (02:41)
[2018-10-09] MEDS ORDERED: GLUCOSE 10 TABS/TUBE PO PRN (02:41)
[2018-10-09] MEDS: INSULIN ASPART 100 UNITS/ML 3 ML PEN SC SCH ×5 (02:57→21:04)
[2018-10-09] MEDS ORDERED: NSS + 20MEQ KCL 20 MEQ/1,000 ML BAG IV ONE ×2 (03:00→04:00)
[2018-10-09] MEDS ORDERED: MAGNESIUM SULFATE / D5W 1 GM/100 ML BAG IV ONE (03:00)
[2018-10-09] MEDS: LEVOTHYROXINE SODIUM 75 MCG TABLET PO SCH (05:58)
--- NOTE | 2018-10-09 06:28 | XRay Report ---
XR chest 1V portable CLINICAL HISTORY: syncope COMPARISON STUDY: 07/25/2017 FINDINGS: The cardiac and mediastinal contours are normal. There is no evidence of focal pulmonary co nsolidation. There is no evidence of failure. No pleural effusions are visualized.[ IMPRESSION: No active disease in the chest. Electronically signed by: Dominick Barrera M.D. 10/09/2018 6:26 AM
--- NOTE | 2018-10-09 06:38 | CT Scan Report ---
CT OF THE CERVICAL SPINE CLINICAL HISTORY: Neck pain status post trauma COMPARISON STUDY: Commensurate radiographic study dated 07/25/2017 CT DOSE: TECHNIQUE: CT scan of the cervical spine was performed from the skull base to the thoracic inlet. Savanah ges are reviewed in the axial, sagittal, and coronal planes. IV contrast was not administered for thi s examination. A dose lowering technique was utilized adhering to the principles of ALARA. FINDINGS: There is fluid within the sphenoid sinus. There is a left maxilla sinus air-fluid level. There is a l eft mastoid effusion. As no apical pneumothorax. There is pulmonary emphysema. The prevertebral soft tissues are normal. No fractures or subluxations are visualized. There are multilevel degenerative changes IMPRESSION: 1. No evidence of acute fracture or traumatic subluxation 2. Small left mastoid effusion. Left maxillary sinus air-fluid level. Sphenoid sinus fluid. Electronically signed by: Dominick Barrera M.D. 10/09/2018 6:37 AM
--- NOTE | 2018-10-09 06:41 | CT Scan Report ---
CT thoracic spine wo con CT DOSE: 1643.68 mGy.cm CLINICAL HISTORY: Thoracic spine pain status post trauma TECHNIQUE: Helical images were acquired in transverse plane. Sagittal and coronal reformatted images were reviewed. A dose lowering technique was utilized adhering to the principles of ALARA. COMPARISON STUDY: None. FINDINGS: No acute fractures or traumatic subluxations are visualized. There are no paraspinal hemato mas. There is no pneumothorax. There are no pleural effusions. There are no findings to indicate pulm onary contusion. There is pulmonary emphysema. There are multilevel degenerative changes. IMPRESSION: Mild multilevel degenerative change. No acute fractures or traumatic subluxations identi fied. Electronically signed by: Dominick Barrera M.D. 10/09/2018 6:39 AM
--- NOTE | 2018-10-09 06:42 | CT Scan Report ---
CT head/brain wo con CLINICAL HISTORY: syncope COMPARISON STUDY: 09/14/2013 TECHNIQUE: Axial CT of the brain is performed from the vertex to the skull base. IV contrast was not administered for this examination. A dose lowering technique was utilized adhering to the principles of ALARA. CT DOSE: FINDINGS: No intra or extra-axial mass lesions are visualized. There is no CT evidence of acute cortical infarc tion. There is no evidence of midline shift. There is no acute hemorrhage. No calvarial fractures ar e visualized. There are minimal white matter hypodensities likely on a small vessel basis. There is no evidence of pathologic ventricular dilatation. There is mucosal thickening/fluid at the left maxillary sinus. There is sphenoid sinus fluid. There i s a trace left mastoid effusion. IMPRESSION: 1. Inflammatory changes of the paranasal sinuses 2. No acute intracranial findings Electronically signed by: Dominick Barrera M.D. 10/09/2018 6:41 AM
--- NOTE | 2018-10-09 07:03 | Ultrasound Report ---
US venous doppler LE BI CLINICAL HISTORY: Bilateral leg swelling COMPARISON STUDY: No previous studies for comparison. FINDINGS: Real-time and color flow Doppler imaging were performed. Flow was seen within the femoral, popliteal and calf veins with no intraluminal thrombus demonstrated. The saphenous vein is patent. IMPRESSION: No evidence of lower extremity DVT. Electronically signed by: Dominick Barrera M.D. 10/09/2018 7:01 AM
--- NOTE | 2018-10-09 07:36 | XRay Report ---
XR shoulder RT min 2V routine CLINICAL HISTORY: R shoulder pain COMPARISON: None. DISCUSSION: No fractures or dislocations are visualized. There are no visible periarticular calcifica tions IMPRESSION: No significant bony abnormalities. Electronically signed by: Dominick Barrera M.D. 10/09/2018 7:35 AM
[2018-10-09 07:51] LABS: Basophils # (auto) 0.01 K/uL (0-0.2); Basophils % (auto) 0.1 %; Eosinophils # (auto) 0.39 K/uL (0-0.5); Eosinophils % (auto) 3.1 %; Hematocrit (blood only) 39.1 % (37-47); Hemoglobin 12.6 g/dL (12.0-16.0); Immature Granulocytes # (auto) 0.04 K/uL (0.00-0.02); Immature Granulocytes % (auto) 0.3 %; Lymphocytes # (auto) 4.38 K/uL (1.2-3.4); Lymphocytes % (auto) 35.2 %; Mean Corpuscular Hgb Conc 32.2 g/dL (32-36); Mean Corpuscular Volume 98.5 fL (80-100); Mean Platelet Volume 9.1 fL (7.4-10.4); Monocytes % (auto) 8.8 %; Neutrophils # (auto) 6.54 K/uL (1.4-6.5); Neutrophils % (auto) 52.5 %; Platelet Count 343 K/uL (130-400); RDW Coefficient of Variation 14.6 % (11.5-14.5); RDW Standard Deviation 52.4 fL (36.4-46.3); Red Blood Count 3.97 M/uL (4.2-5.4); White Blood Count 12.46 K/uL (4.8-10.8)
[2018-10-09 08:21] LABS: BUN Creatinine Ratio 12.4 (10-20); Calcium 7.5 mg/dl (8.5-10.1); Creatinine Clr Calc Pharmacy 35.9 ml/min; Est GFR (Non-African American) 32.8; Potassium 3.9 mmol/L (3.5-5.1)
[2018-10-09] MEDS: FLUTICASONE PROPIONATE NA SPR 16 GM BTL SCH ×2 (08:32→21:07)
[2018-10-09] MEDS: FLUTICASONE HFA 110MCG INHALER INH SCH ×2 (08:33→21:06)
[2018-10-09] MEDS: AZELASTINE~ORDER AWAITING ACTION SCH ×2 (08:33→18:41)
[2018-10-09] MEDS: PANTOprazole 40 MG TAB PO SCH (08:34)
[2018-10-09] MEDS: SUCRALFATE 1 GM TAB PO SCH ×4 (08:34→21:09)
[2018-10-09] MEDS: GABAPENTIN 300 MG CAP PO SCH ×2 (08:34→13:20)
[2018-10-09] MEDS: PARoxetine HCl 20 MG TAB PO SCH (08:35)
[2018-10-09 10:05] LABS: Appearance Urine Clear (Clear); Bilirubin Urine Negative (Negative); Color Urine Yellow; Glucose Urine UA Negative (Negative); Ketones Urine Negative (Negative); Leukocyte Esterase Urine Negative (Negative); Nitrite Urine Negative (Negative); Protein Urine Negative (Negative); Specific Gravity Urine 1.015 (1.000-1.030); Urobilinogen Urine Negative (Negative)
[2018-10-09] MEDS: LIDOCAINE 5% 1 PATCH TD SCH (13:15)
[2018-10-09] MEDS: GABAPENTIN 100 MG CAP PO SCH ×2 (13:53→21:08)
--- NOTE | 2018-10-09 15:34 | Hospitalist Progress Note ---
Date of Service October 09, 2018 Assessment & Plan (1) Syncope: Multifactorial : Orthostasis, hypotension, ARF on CRI ? Hypoglycemia from new Linagliptin Rx Rule out cardiac dysfunction -- most likely from Dehydration, with Acute Renal Failure BP improving, renal function back to baseline given IV NSS Lisinopril, Atenolol held for now monitor Ortho VS -- BSG >100s monitor -- echo ordered Traumatic scalp wound secondary to above status post repair -- healing well monitor Posttraumatic right shoulder pain rule out bony injury -- no fracture per xray Acute Renal Failure -- in the setting of poor oral intake, Lasix and Lisinopril use -- given IV NSS, resolved d/c fluids -- monitor renal function Chronic diastolic heart failure EF 55% -- hold Lasix for today chronic respiratory failure secondary to COPD on home O2 at night, respiratory status at baseline hypothyroidism, euthyroid as of today's TSH DM 2 on oral meds, well controlled as of recent outpatient hemoglobin A1c of 6.5 last July 2018 -- will need to transition back to Sitagliptin ongoing tobacco abuse. ISS BG goal 140-180 DVT prophylaxis. SCDs RE traumatic scalp wound Full code Subjective ff up for syncope seen resting in bed, sitting up comfortable states she feels better overall has mild headache- was not able to sleep well, this is improving denies BOV, dizziness, nausea, focal weakness/numbness, or any other neuro symptom denies any pain in her body no chest pain, dyspnea, abdominal pain denies problems voiding, diarrhea no other symptoms Physical Exam 2 Vital Signs (Past 24 Hours): Last Vital Signs Temp 36.4 C L 10/09/18 11:31 Pulse 74 10/09/18 11:31 Resp 20 10/09/18 11:31 BP 96/59 L 10/09/18 11:31 Pulse Ox 91 10/09/18 11:31 Physical Exam: General- oriented x 3, not in distress, speaks in sentences with no effort or accessory muscle use Head- small laceration onthe right parietal area: healing well, no hematoma Eyes- anicteric Neck- no JVD Lungs- mild rales at the bases, no wheezing Heart- normal rate, regular rhythm; no murmurs Abdomen- normal bowel sounds, nondistended, soft, nontender Extremities- no pretibial edema, no calf tenderness Neuro- alert, oriented x 3; no gross focal neurologic deficits Skin- warm & dry Results & Data Laboratory Results Laboratory Results - last 24 hr 10/08/18 10/08/18 10/08/18 23:34 23:34 23:34 WBC 14.26 H RBC 4.38 Hgb 13.9 Hct 41.7 MCV 95.2 MCH 31.7 MCHC 33.3 RDW Std Deviation 50.2 H RDW Coeff of Scar 14.4 Plt Count 416 H MPV 9.3 Immature Gran % (Auto) 0.4 Neut % (Auto) 64.1 Lymph % (Auto) 22.9 Johnston % (Auto) 8.1 Eos % (Auto) 4.3 Baso % (Auto) 0.2 Immature Gran # (Auto) 0.05 H Neut # (Auto) 9.14 H Lymph # (Auto) 3.26 Johnston # (Auto) 1.16 H Eos # (Auto) 0.62 H Baso # (Auto) 0.03 PT 10.7 INR 1.1 Sodium 137 Potassium 3.8 Chloride 103 Carbon Dioxide 26 Anion Gap 8.0 BUN 26 H Creatinine 2.20 H Est Cr Clr Drug Dosing 26.2 Est GFR ( Amer) 26.0 Est GFR (Non-Af Amer) 22.5 BUN/Creatinine Ratio 11.8 Glucose 123 H POC Glucose Lactate Calcium 8.6 Magnesium Total Bilirubin 0.2 AST 13 L ALT 19 Alkaline Phosphatase 125 H Total Creatine Kinase Troponin I < 0.015 Total Protein 7.9 Albumin 3.1 L Globulin 4.8 H Albumin/Globulin Ratio 0.6 L Procalcitonin TSH Urine Color Urine Appearance Urine pH Ur Specific [place] Urine Protein Urine Glucose (UA) Urine Ketones Urine Blood Urine Nitrite Urine Bilirubin Urine Urobilinogen Ur Leukocyte Esterase Blood Type Antibody Screen 10/09/18 10/09/18 10/09/18 01:21 01:21 01:21 WBC RBC Hgb Hct MCV MCH MCHC RDW Std Deviation RDW Coeff of Scar Plt Count MPV Immature Gran % (Auto) Neut % (Auto) Lymph % (Auto) [place] % (Auto) Eos % (Auto) Baso % (Auto) Immature Gran # (Auto) Neut # (Auto) Lymph # (Auto) Johnston # (Auto) Eos # (Auto) Baso # (Auto) PT INR Sodium Potassium Chloride Carbon Dioxide Anion Gap BUN Creatinine Est Cr Clr Drug Dosing Est GFR ( Amer) Est GFR (Non-Af Amer) BUN/Creatinine Ratio Glucose POC Glucose Lactate 1.2 Calcium Magnesium 1.8 Total Bilirubin AST ALT Alkaline Phosphatase Total Creatine Kinase 44 Troponin I Total Protein Albumin Globulin Albumin/Globulin Ratio Procalcitonin 0.07 TSH 1.990 Urine Color Urine Appearance Urine pH Ur Specific [place] Urine Protein Urine Glucose (UA) Urine Ketones Urine Blood Urine Nitrite Urine Bilirubin Urine Urobilinogen Ur Leukocyte Esterase Blood Type Antibody Screen 10/09/18 10/09/18 10/09/18 02:53 07:22 07:22 WBC 12.46 H RBC 3.97 L Hgb 12.6 Hct 39.1 MCV 98.5 MCH 31.7 MCHC 32.2 RDW Std Deviation 52.4 H RDW Coeff of Scar 14.6 H Plt Count 343 MPV 9.1 Immature Gran % (Auto) 0.3 Neut % (Auto) 52.5 Lymph % (Auto) 35.2 Johnston % (Auto) 8.8 Eos % (Auto) 3.1 Baso % (Auto) 0.1 Immature Gran # (Auto) 0.04 H Neut # (Auto) 6.54 H Lymph # (Auto) 4.38 H Johnston # (Auto) 1.10 H Eos # (Auto) 0.39 Baso # (Auto) 0.01 PT INR Sodium 141 Potassium 3.9 Chloride 112 H Carbon Dioxide 26 Anion Gap 3.0 BUN 20 H Creatinine 1.61 H D Est Cr Clr Drug Dosing 35.9 Est GFR ( Amer) 38.0 Est GFR (Non-Af Amer) 32.8 BUN/Creatinine Ratio 12.4 Glucose 97 POC Glucose 110 H Lactate Calcium 7.5 L Magnesium Total Bilirubin AST ALT Alkaline Phosphatase Total Creatine Kinase Troponin I Total Protein Albumin Globulin Albumin/Globulin Ratio Procalcitonin TSH Urine Color Urine Appearance Urine pH Ur Specific [place] Urine Protein Urine Glucose (UA) Urine Ketones Urine Blood Urine Nitrite Urine Bilirubin Urine Urobilinogen Ur Leukocyte Esterase Blood Type Antibody Screen 10/09/18 10/09/18 10/09/18 07:22 07:26 09:00 WBC RBC Hgb Hct MCV MCH MCHC RDW Std Deviation RDW Coeff of Scar Plt Count MPV Immature Gran % (Auto) Neut % (Auto) Lymph % (Auto) [place] % (Auto) Eos % (Auto) Baso % (Auto) Immature Gran # (Auto) Neut # (Auto) Lymph # (Auto) [place] # (Auto) Eos # (Auto) Baso # (Auto) PT INR Sodium Potassium Chloride Carbon Dioxide Anion Gap BUN Creatinine Est Cr Clr Drug Dosing Est GFR ( Amer) Est GFR (Non-Af Amer) BUN/Creatinine Ratio Glucose POC Glucose 114 H Lactate Calcium Magnesium Total Bilirubin AST ALT Alkaline Phosphatase Total Creatine Kinase Troponin I Total Protein Albumin Globulin Albumin/Globulin Ratio Procalcitonin TSH Urine Color Yellow Urine Appearance Clear Urine pH 5.0 Ur Specific [place] 1.015 Urine Protein Negative Urine Glucose (UA) Negative Urine Ketones Negative Urine Blood Negative Urine Nitrite Negative Urine Bilirubin Negative Urine Urobilinogen Negative Ur Leukocyte Esterase Negative Blood Type A Positive Antibody Screen NEGATIVE 10/09/18 11:38 WBC RBC Hgb Hct MCV MCH MCHC RDW Std Deviation RDW Coeff of Scar Plt Count MPV Immature Gran % (Auto) Neut % (Auto) Lymph % (Auto) [place] % (Auto) Eos % (Auto) Baso % (Auto) Immature Gran # (Auto) Neut # (Auto) Lymph # (Auto) Johnston # (Auto) Eos # (Auto) Baso # (Auto) PT INR Sodium Potassium Chloride Carbon Dioxide Anion Gap BUN Creatinine Est Cr Clr Drug Dosing Est GFR ( Amer) Est GFR (Non-Af Amer) BUN/Creatinine Ratio Glucose POC Glucose 105 H Lactate Calcium Magnesium Total Bilirubin AST ALT Alkaline Phosphatase Total Creatine Kinase Troponin I Total Protein Albumin Globulin Albumin/Globulin Ratio Procalcitonin TSH Urine Color Urine Appearance Urine pH Ur Specific [place] Urine Protein Urine Glucose (UA) Urine Ketones Urine Blood Urine Nitrite Urine Bilirubin Urine Urobilinogen Ur Leukocyte Esterase Blood Type Antibody Screen _ (1) Syncope Encounter type: Syncope type: unspecified Qualified Code(s): R55 - Syncope and collapse
[2018-10-09] MEDS ORDERED: XOPENEX/ATROVENT 1.25mg/0.5MG NEB COMBO NEB STA (18:29)
[2018-10-09] MEDS ORDERED: LEVALBUTEROL 1.25MG/0.5ML NEB INH ONE (18:30)
[2018-10-09] MEDS ORDERED: IPRATROPIUM BROMIDE NEB SOLN 0.02% 2.5 ML VIAL INH ONE (18:30)
[2018-10-09] MEDS: ROPINIROLE HCL 0.25 MG TABLET PO SCH (21:07)
[2018-10-09] MEDS: MONTELUKAST SODIUM 10 MG TABLET PO SCH (21:08)
[2018-10-09] MEDS: ATORVASTATIN 10 MG TAB PO SCH (21:09)
[2018-10-09] MEDS: AMITRIPTYLINE HCL 25 MG TAB PO SCH (21:09)
[2018-10-09] MEDS: SALMETEROL XINAFOATE 50MCG 28 BLISTER INH INH SCH (21:33)
[2018-10-10] MEDS: AZELASTINE~ORDER AWAITING ACTION SCH ×4 (00:16→23:55)
[2018-10-10] MEDS: LEVALBUTEROL HCL 1.25 MG/3 ML NEB NEB SCH ×4 (01:54→19:15)
[2018-10-10] MEDS ORDERED: COUGH DROP (SUGAR FREE) LOZ 24 LOZ/1 BOX BUCCAL ONE (05:46)
[2018-10-10] MEDS: LEVOTHYROXINE SODIUM 75 MCG TABLET PO SCH (06:01)
[2018-10-10] MEDS: INSULIN ASPART 100 UNITS/ML 3 ML PEN SC SCH ×4 (08:00→21:49)
[2018-10-10] MEDS: SUCRALFATE 1 GM TAB PO SCH ×4 (08:01→20:39)
[2018-10-10] MEDS: SALMETEROL XINAFOATE 50MCG 28 BLISTER INH INH SCH (08:53)
[2018-10-10] MEDS: FLUTICASONE PROPIONATE NA SPR 16 GM BTL SCH ×2 (08:53→20:40)
[2018-10-10] MEDS: PARoxetine HCl 20 MG TAB PO SCH (08:54)
[2018-10-10] MEDS: FLUTICASONE HFA 110MCG INHALER INH SCH ×2 (08:54→20:40)
[2018-10-10] MEDS: PANTOprazole 40 MG TAB PO SCH (08:54)
[2018-10-10] MEDS: GABAPENTIN 100 MG CAP PO SCH ×3 (08:55→20:39)
[2018-10-10] MEDS: LIDOCAINE 5% 1 PATCH TD SCH (10:16)
--- NOTE | 2018-10-10 10:17 | Hospitalist Progress Note ---
Date of Service October 10, 2018 Assessment & Plan (1) Syncope: Multifactorial : Orthostasis, hypotension, ARF on CRI ? Hypoglycemia from new Linagliptin Rx Accelerated Junctional Rhythm? -- most likely from Dehydration, with Acute Renal Failure BP low again today IV NSS bolus, then NSS at 100cc/hr Lasix, Lisinopril, Atenolol held for now monitor Ortho VS -- BSG >100s monitor -- echo ordered: unrevealing -- Accelerated Junctional Rhythm on EKGs today asymptomatic will obtain Cardiology input in light of syncopal episode Acute Renal Failure -- in the setting of poor oral intake, Lasix and Lisinopril use -- crea pending IV NSS resumed due to hypotension Traumatic scalp wound secondary to above status post repair -- healing well monitor Posttraumatic right shoulder pain rule out bony injury -- no fracture per xray Chronic diastolic heart failure EF 55% -- hold Lasix for today/ patient appears hypovolemic chronic respiratory failure secondary to COPD on home O2 at night -- (+) wheezing and cough yesterday not able to use Anoro -- given Serevent and Nebs QID -- wheezing and cough resolved today -- likely from not being able to use Anoro -- requested that her family bring the Anoro ellipta to be used while admitted hypothyroidism, euthyroid as of today's TSH DM 2 on oral meds, well controlled as of recent outpatient hemoglobin A1c of 6.5 last July 2018 -- will need to transition back to Sitagliptin ongoing tobacco abuse. DVT prophylaxis. start Lovenox today Full code Disposition anticipate d/c home with home health services when medically stable Subjective ff up for syncope seen resting in bed, sitting up comfortable states she feels improved today syst bp in the 80s during PT, asymptomatic denies dizziness, presyncope/syncope while admitted denies chest pain, palpitations breathing has improved compared to yesterday denies changes with sputum production- scant, white, post nasal drainage as per patient- chronic no other symptoms Physical Exam 2 Vital Signs (Past 24 Hours): Last Vital Signs Temp 36.4 C L 10/10/18 07:00 Pulse 70 10/10/18 07:13 Resp 18 10/10/18 07:11 BP 100/65 10/10/18 07:00 Pulse Ox 93 10/10/18 07:11 Physical Exam: General- oriented x 3, not in distress, speaks in sentences with no effort or accessory muscle use Eyes- anicteric Neck- no JVD Lungs- distant breath sounds bilaterally no rales/wheezes Heart- normal rate, regular rhythm; no murmurs Abdomen- normal bowel sounds, nondistended, soft, nontender Extremities- no pretibial edema, no calf tenderness Neuro- alert, oriented x 3; no gross focal neurologic deficits Skin- warm & dry Results & Data Laboratory Results Laboratory Results - last 24 hr 10/09/18 10/09/18 10/09/18 11:38 16:31 20:18 POC Glucose 105 H 91 102 H 10/10/18 07:26 POC Glucose 113 H _ (1) Syncope Encounter type: Syncope type: unspecified Qualified Code(s): R55 - Syncope and collapse
[2018-10-10] MEDS ORDERED: SODIUM CHLORIDE 0.9% 1000ML 1,000 ML IV SCH (10:45)
[2018-10-10 10:51] LABS: BUN Creatinine Ratio 11.8 (10-20); Calcium 8.3 mg/dl (8.5-10.1); Creatinine Clr Calc Pharmacy 41.8 ml/min; Est GFR (African American) 44.9; Est GFR (Non-African American) 38.8; Potassium 3.8 mmol/L (3.5-5.1)
--- NOTE | 2018-10-10 11:16 | Cardiology Consultation ---
Date of Consultation October 10, 2018 Assessment & Plan (1) Syncope: As mentioned above I have reviewed the patient's telemetry as well as EKGs. I believe she has been in a sinus mechanism since admission. Her echocardiogram is unremarkable. I do not believe any additional cardiac workup is indicated at this time. (2) COPD with acute exacerbation: (3) Dehydration: History of Present Illness Attending Physician: Thomas Velasquez MD History of Present Illness This is a 68-year-old diabetic female who recently had her diabetic medications adjusted. She was in her usual state of health on the day of admission when she bent forward to put the leash on her dog. When she stood up she became lightheaded and then found herself on the floor. She was brought to the hospital and admitted with a diagnosis of syncope. She has a history of COPD and in 2013 had an admission with respiratory failure. During that admission she was noted to have systolic dysfunction and a low ejection fraction however, she has had a repeat echocardiogram this admission which shows normal left and right ventricular systolic function and no significant valvular pathology. She does not follow with a nuclear auxiliary operator. She has no prior history of coronary artery disease or cerebrovascular disease. Her workup thus far has been negative. The thought is that she was dehydrated as an etiology to her syncope and has been started on IV fluids. After admission she had an EKG which is of poor quality due to baseline artifact, it was interpreted by the computer as being accelerated junctional rhythm. I reviewed these EKGs as well as her telemetry during her hospital admission and I believe that she has always been in a sinus mechanism. She has no cardiac complaints presently. Allergies Allergy/AdvReac Type Severity Reaction Status Date / Time adhesive Allergy Intermediate RASH Verified 01/26/18 06:39 Quinolones Allergy Intermediate LEVAQUIN Verified 01/26/18 06:39 codeine AdvReac Severe "BECAME Verified 01/26/18 06:39 ADDICTED TO MED" PREFERS NOT TO TAKE IF POSSIBLE. morphine AdvReac Severe ADDICTION-PREFERS Verified 01/26/18 06:39 NOT TO TAKE IF POSSIBLE. linagliptin AdvReac Mild hypoglycemi Verified 10/09/18 02:27 a Home Medications Home Medications Medication Instructions Recorded Confirmed Type amitriptyline 25 mg PO HS 10/09/18 10/09/18 History aspirin [Aspir-81] 81 mg PO DAILY 10/09/18 10/09/18 History atenolol 25 mg PO DAILY 10/09/18 10/09/18 History atorvastatin 10 mg PO HS 10/09/18 10/09/18 History azelastine 2 spray INTRANASAL BID 10/09/18 10/09/18 History calcium carbonate 500 mg PO 5XD PRN 10/09/18 10/09/18 History cholecalciferol (vitamin D3) 50,000 unit PO WK 10/09/18 10/09/18 History clotrimazole 10 mg MUCOUS MEMBRANE 5XD 10/09/18 10/09/18 History diphenhydramine HCl 25 mg PO UD PRN 10/09/18 10/09/18 History fluticasone [Flovent HFA] 2 puff INHALATION BID 10/09/18 10/09/18 History furosemide 20 mg PO DAILY 10/09/18 10/09/18 History gabapentin 300 mg PO TID 10/09/18 10/09/18 History guaifenesin 1 dose PO UD PRN 10/09/18 10/09/18 History guaifenesin 1,200 mg PO Q12H 10/09/18 10/09/18 History inulin [Fiber Gummies] 4 g PO QAM 10/09/18 10/09/18 History ipratropium bromide 2.5 ml INHALATION Q4H PRN 10/09/18 10/09/18 History levalbuterol HCl 1.25 mg INHALATION QID PRN 10/09/18 10/09/18 History levocetirizine 5 mg PO PM 10/09/18 10/09/18 History levothyroxine 75 mcg PO DAILY 10/09/18 10/09/18 History linagliptin [Tradjenta] 5 mg PO DAILY 10/09/18 10/09/18 History lisinopril 10 mg PO DAILY 10/09/18 10/09/18 History mometasone [Nasonex] 2 spray INTRANASAL BID 10/09/18 10/09/18 History montelukast 10 mg PO HS 10/09/18 10/09/18 History nitroglycerin [Nitrostat] 0.4 mg SUBLINGUAL UD PRN 10/09/18 10/09/18 History pantoprazole 40 mg PO QAM 10/09/18 10/09/18 History paroxetine HCl 40 mg PO QAM 10/09/18 10/09/18 History potassium chloride [Klor-Con M10] 10 meq PO BIDM 10/09/18 10/09/18 History ropinirole 0.25 mg PO HS 10/09/18 10/09/18 History sucralfate 1 g PO Q6H 10/09/18 10/09/18 History tramadol 50 mg PO Q6H PRN 10/09/18 10/09/18 History umeclidinium-vilanterol [Anoro 1 puff INHALATION DAILY 10/09/18 10/09/18 History Ellipta] Patient History Medical History COPD (chronic obstructive pulmonary disease) (Chronic) Diabetes (Chronic) Social History Current Living Situation: Alone Feels Safe at Home: Yes Safety Concerns: Feels Safe At This Time Smoking Status: Current every day smoker Tobacco Type: cigarettes Hx Alcohol Use: No Hx Substance Use: No Beliefs That Will Affect Care: None Preferred Language: Tanzanian Communication Ability: Effective Profiling Machine Operator Required: No Review of Systems Review of Systems: See HPI for pertinent positives. All other 10 point review of systems are negative. Physical Exam 2 Vital Signs (Past 24 Hours): Last Vital Signs Temp 36.4 C L 10/10/18 07:00 Pulse 70 10/10/18 07:13 Resp 18 10/10/18 07:11 BP 78/53 L 10/10/18 10:29 Pulse Ox 86 L 10/10/18 10:52 Physical Exam: General: no acute distress and stated age Head: normocephalic, no masses, lesions, tenderness or abnormalities Eyes: conjunctiva are pink and non-injected, sclera clear Neck: supple, no adenopathy, no bruits, normal jugular venous pulse, no hepatojugular reflux Chest: normal shape and normal respiratory effort Lungs: clear to auscultation and percussion Cardiac Exam: - regular rate & rhythm, no murmurs gallops or rubs - normal S1, normal S2 Pulses: 2(+) throughout Abdomen: abdomen soft, non-tender, no abnormal masses and no hepatosplenomegaly Musculoskeletal: no gait disturbance, no joint inflammation, no deforming arthritis Extremities: no edema and no cyanosis Neuro: grossly normal exam Results & Data Laboratory Results Laboratory Results - last 24 hr 10/09/18 10/09/18 10/09/18 11:38 16:31 20:18 Sodium Potassium Chloride Carbon Dioxide Anion Gap BUN Creatinine Est Cr Clr Drug Dosing Est GFR ( Amer) Est GFR (Non-Af Amer) BUN/Creatinine Ratio Glucose POC Glucose 105 H 91 102 H Calcium 10/10/18 10/10/18 07:26 10:04 Sodium 141 Potassium 3.8 Chloride 108 H Carbon Dioxide 26 Anion Gap 6.0 BUN 17 Creatinine 1.40 H Est Cr Clr Drug Dosing 41.8 Est GFR ( Amer) 44.9 Est GFR (Non-Af Amer) 38.8 BUN/Creatinine Ratio 11.8 Glucose 123 H POC Glucose 113 H Calcium 8.3 L Medications Administered Current Inpatient Medications Acetaminophen (Tylenol) 650 mg PO Q4H PRN PRN Reason: Pain or Fever Stop: 11/08/18 02:40 Albuterol (Duoneb) 3 ml NEB Q2H PRN PRN Reason: Wheezing Stop: 11/08/18 02:40 Amitriptyline HCl (Elavil) 25 mg PO HS [facility] Stop: 11/08/18 20:59 Last Admin: 10/09/18 21:09 Dose: 25 mg Atorvastatin Calcium (Lipitor) 10 mg PO HS [facility] Stop: 11/08/18 20:59 Last Admin: 10/09/18 21:09 Dose: 10 mg Dextrose (Dextrose 50%) 25 - 50 ml IV UD PRN; Protocol PRN Reason: Hypoglycemia Protocol Stop: 11/08/18 02:40 Enoxaparin Sodium (Lovenox) 40 mg SQ DAILY [facility]; Protocol Stop: 11/09/18 10:44 Fluticasone Propionate (Flovent Hfa 110mch) 2 puffs INH BID [facility] Stop: 11/08/18 08:59 Last Admin: 10/10/18 08:54 Dose: 2 puffs Fluticasone Propionate (Flonase) 2 sprays NA BID [facility] Stop: 11/08/18 08:59 Last Admin: 10/10/18 08:53 Dose: 2 sprays Gabapentin (Neurontin) 200 mg PO TID [facility] Stop: 11/08/18 13:59 Last Admin: 10/10/18 08:55 Dose: 200 mg Glucagon (Glucagen) 1 mg SQ UD PRN; Protocol PRN Reason: Hypoglycemia Protocol Stop: 11/08/18 02:40 Glucose (Glucose 40%) 15 - 30 gm PO UD PRN; Protocol PRN Reason: Hypoglycemia Protocol Stop: 11/08/18 02:40 Glucose (Dex4 Glucose) 4 - 8 tabs PO UD PRN; Protocol PRN Reason: Hypoglycemia Protocol Stop: 11/08/18 02:40 Prochlorperazine 5 mg/ Syringe 5 mls @ 5 mls/min IV Q6H PRN PRN Reason: Nausea And Vomiting Stop: 11/08/18 02:40 Sodium Chloride (Nss 1000ml) 1,000 mls @ 999 mls/hr IV .Q1H1M [facility] Stop: 10/10/18 11:45 Sodium Chloride (Nss 1000ml) 1,000 mls @ 100 mls/hr IV .Q10H [facility] Stop: 11/09/18 11:44 Insulin Aspart (Novolog Flexpen) 0 units SC ACHS [facility] Stop: 11/08/18 02:59 Last Admin: 10/10/18 08:00 Dose: Not Given Levalbuterol HCl (Xopenex 1.25mg/3ml Neb) 1.25 mg NEB Q6R [facility] Stop: 11/09/18 01:59 Last Admin: 10/10/18 07:08 Dose: 1.25 mg Levothyroxine Sodium (Synthroid) 75 mcg PO DAILYBB [facility] Stop: 11/08/18 06:29 Last Admin: 10/10/18 06:01 Dose: 75 mcg Lidocaine (Lidoderm 5%) 1 patch TD QAM [facility] Stop: 11/08/18 09:59 Last Admin: 10/10/18 10:16 Dose: Not Given Miscellaneous (Order Awaiting Action) 1 ea N/A QS [facility] Stop: 11/08/18 07:59 Last Admin: 10/10/18 08:53 Dose: Not Given Miscellaneous (Carbohydrates For Hypoglycemia) 15 - 30 gm PO UD PRN PRN Reason: Hypoglycemia Treatment Stop: 11/08/18 02:40 Miscellaneous (Order Awaiting Action) 1 ea N/A QS [facility] Stop: 11/08/18 07:59 Last Admin: 10/10/18 08:53 Dose: Not Given Miscellaneous (Order Awaiting Action) 1 ea N/A QS [facility] Stop: 11/08/18 07:59 Last Admin: 10/10/18 08:53 Dose: Not Given Miscellaneous (Remove Lidoderm Patch) 1 ea N/A DAILY@2100 [facility] Stop: 11/08/18 20:59 Last Admin: 10/09/18 21:06 Dose: Not Given Montelukast Sodium (Singulair) 10 mg PO HS [facility] Stop: 11/08/18 20:59 Last Admin: 10/09/18 21:08 Dose: 10 mg Nitroglycerin (Nitrostat) 0.4 mg SL UD PRN PRN Reason: Chest Pain Stop: 11/08/18 02:40 Pantoprazole Sodium (Protonix) 40 mg PO QAM [facility] Stop: 11/08/18 08:59 Last Admin: 10/10/18 08:54 Dose: 40 mg Paroxetine HCl (Paxil) 40 mg PO QAM [facility] Stop: 11/08/18 08:59 Last Admin: 10/10/18 08:54 Dose: 40 mg Ropinirole HCl (Requip) 0.25 mg PO [facility] Stop: 11/08/18 20:59 Last Admin: 10/09/18 21:07 Dose: 0.25 mg Salmeterol Xinafoate (Serevent Diskus) 1 puffs INH BID [facility] Stop: 11/08/18 20:59 Last Admin: 10/10/18 08:53 Dose: 1 puffs Sucralfate (Carafate Tab) 1 gm PO ACHS [facility] Stop: 11/08/18 07:29 Last Admin: 10/10/18 08:01 Dose: 1 gm Tramadol HCl (Ultram) 50 mg PO Q6H PRN PRN Reason: Pain Stop: 11/08/18 02:40 _ (1) Syncope Encounter type: Syncope type: unspecified Qualified Code(s): R55 - Syncope and collapse
[2018-10-10] MEDS: ENOXAPARIN INJ 40 MG/0.4 ML SYR SQ SCH (12:22)
[2018-10-10] MEDS: SODIUM CHLORIDE 0.9% 1000ML 1,000 ML IV SCH ×2 (12:24→21:50)
[2018-10-10] MEDS: ANORO INH SCH (17:15)
[2018-10-10] MEDS: MONTELUKAST SODIUM 10 MG TABLET PO SCH (20:39)
[2018-10-10] MEDS: ATORVASTATIN 10 MG TAB PO SCH (20:39)
[2018-10-10] MEDS: AMITRIPTYLINE HCL 25 MG TAB PO SCH (20:39)
[2018-10-10] MEDS: ROPINIROLE HCL 0.25 MG TABLET PO SCH (20:39)
[2018-10-10] MEDS ORDERED: AUGMENTIN CONSULT PHARMACY PRN (20:42)
[2018-10-10] MEDS: methylPREDNISolone 40 MG in SYRINGE 0 ML IV SCH (21:52)
[2018-10-10] MEDS: guaiFENesin 600 MG TABCR PO SCH (21:52)
[2018-10-10] MEDS: AMOXICILLIN/CLAVULANATE 875 MG TAB PO SCH (21:53)
[2018-10-11] MEDS: LEVALBUTEROL HCL 1.25 MG/3 ML NEB NEB SCH ×4 (01:46→19:23)
[2018-10-11] MEDS: LEVOTHYROXINE SODIUM 75 MCG TABLET PO SCH (05:08)
[2018-10-11] MEDS: methylPREDNISolone 40 MG in SYRINGE 0 ML IV SCH ×3 (05:08→21:10)
[2018-10-11 06:37] LABS: Creatinine Clr Calc Pharmacy 38.4 ml/min; Est GFR (African American) 39.7; Est GFR (Non-African American) 34.3
[2018-10-11] MEDS: AMOXICILLIN/CLAVULANATE 875 MG TAB PO SCH ×2 (07:09→18:32)
[2018-10-11] MEDS: SODIUM CHLORIDE 0.9% 1000ML 1,000 ML IV SCH ×2 (07:09→19:09)
[2018-10-11] MEDS: AZELASTINE~ORDER AWAITING ACTION SCH ×2 (07:09→15:09)
[2018-10-11] MEDS: SUCRALFATE 1 GM TAB PO SCH ×4 (07:09→21:09)
[2018-10-11] MEDS: FLUTICASONE PROPIONATE NA SPR 16 GM BTL SCH ×2 (07:10→21:10)
[2018-10-11] MEDS: FLUTICASONE HFA 110MCG INHALER INH SCH ×2 (07:11→21:11)
[2018-10-11] MEDS: LIDOCAINE 5% 1 PATCH TD SCH (07:11)
[2018-10-11] MEDS: PANTOprazole 40 MG TAB PO SCH (07:11)
[2018-10-11] MEDS: guaiFENesin 600 MG TABCR PO SCH ×2 (07:12→21:08)
[2018-10-11] MEDS: GABAPENTIN 100 MG CAP PO SCH ×3 (07:12→21:10)
[2018-10-11] MEDS: ENOXAPARIN INJ 40 MG/0.4 ML SYR SQ SCH (07:12)
[2018-10-11] MEDS: PARoxetine HCl 20 MG TAB PO SCH (07:12)
[2018-10-11] MEDS: INSULIN ASPART 100 UNITS/ML 3 ML PEN SC SCH ×4 (07:40→21:14)
[2018-10-11] MEDS ORDERED: ANORO INH SCH (09:00)
[2018-10-11] MEDS: ACETAMINOPHEN 325 MG TAB PO PRN (10:10)
[2018-10-11] MEDS: IPRATROPIUM BROMIDE NEB SOLN 0.02% 2.5 ML VIAL NEB SCH ×2 (13:38→19:23)
[2018-10-11] MEDS: ANORO INH SCH (15:11)
[2018-10-11] MEDS: ATORVASTATIN 10 MG TAB PO SCH (21:08)
[2018-10-11] MEDS: AMITRIPTYLINE HCL 25 MG TAB PO SCH (21:08)
[2018-10-11] MEDS: ROPINIROLE HCL 0.25 MG TABLET PO SCH (21:10)
[2018-10-11] MEDS: MONTELUKAST SODIUM 10 MG TABLET PO SCH (21:11)
[2018-10-12] MEDS: AZELASTINE~ORDER AWAITING ACTION SCH ×2 (00:27→08:03)
[2018-10-12] MEDS: LEVALBUTEROL HCL 1.25 MG/3 ML NEB NEB SCH (02:04)
[2018-10-12] MEDS: IPRATROPIUM BROMIDE NEB SOLN 0.02% 2.5 ML VIAL NEB SCH (02:04)
[2018-10-12] MEDS: methylPREDNISolone 40 MG in SYRINGE 0 ML IV SCH (05:15)
[2018-10-12] MEDS: ACETAMINOPHEN 325 MG TAB PO PRN (05:20)
[2018-10-12] MEDS: LEVOTHYROXINE SODIUM 75 MCG TABLET PO SCH (05:22)
--- NOTE | 2018-10-12 06:24 | Hospitalist Progress Note ---
Date of Service October 12, 2018 delayed entry date of service 10/11/18 Assessment & Plan (1) Syncope: Multifactorial : Orthostasis, hypotension, ARF on CRI ? Hypoglycemia from new Linagliptin Rx -- most likely from Dehydration, with Acute Renal Failure in the setting of poor oral intake, Lasix use given IV NSS bolus, then NSS at 100cc/hr Lasix, Lisinopril, Atenolol held BP improved--> d/c IV fluids, continue Atenolol, hold Lisinopril and Lasix monitor Ortho VS -- BSG >100s will need to return to Sitagliptin for the time being until ff up with PCP -- echo ordered: unrevealing -- Accelerated Junctional Rhythm on EKGs asymptomatic Cardiology consulted--> no junctional rhythm, sinus rhythm on tele COPD exacerbation chronic respiratory failure secondary to COPD on home O2 at night -- possible chronic sinusitis contributing -- CT head: There is mucosal thickening/fluid at the left maxillary sinus. There is sphenoid sinus fluid. There is a trace left mastoid effusion. CXR: no pneumonia -- improving taper Solumedrol continue Nebs continue Augmentin x 10 days total -- continue usual Anoro, Spiriva Acute Renal Failure -- in the setting of poor oral intake, Lasix and Lisinopril use -- crea back to baseline after IV fluids given Traumatic scalp wound secondary to above status post repair -- healing well monitor Posttraumatic right shoulder pain rule out bony injury -- no fracture per xray Chronic diastolic heart failure EF 55% -- hold Lasix for today -- resume gradually accordingly hypothyroidism, euthyroid as of today's TSH DM 2 on oral meds, well controlled as of recent outpatient hemoglobin A1c of 6.5 last July 2018 -- will need to transition back to Sitagliptin until ff up with PCP ongoing tobacco abuse. DVT prophylaxis. Lovenox Full code Disposition anticipate d/c home with home health services when medically stable ff up with PCP Subjective ff up for syncope, hypotension last evening, patient was reporting increased cough, nasal drainage, shortness of breath (+) wheezing bilaterally Solumedrol, Nebs q6h, Augmentin started on exam, patient seen resting in bed, comfortable states she feels improved compared to previous day less cough, dyspnea, nasal drainage no dizziness when upright no chest pain, palpitations, dizziness Physical Exam 2 Vital Signs (Past 24 Hours): Last Vital Signs Temp 36.6 C 10/11/18 23:32 Pulse 78 10/12/18 02:06 Resp 18 10/12/18 02:06 BP 128/68 10/11/18 23:32 Pulse Ox 93 10/12/18 02:06 Physical Exam: General- oriented x 3, not in distress, speaks in sentences with no effort or accessory muscle use Eyes- anicteric Neck- no JVD Lungs- clear breath sounds bilaterally, no wheezing Heart- normal rate, regular rhythm; no murmurs Abdomen- normal bowel sounds, nondistended, soft, nontender Extremities- no pretibial edema, no calf tenderness Neuro- alert, oriented x 3; no gross focal neurologic deficits Skin- warm & dry Results & Data Laboratory Results all noted and reviewed _ (1) Syncope Encounter type: Syncope type: unspecified Qualified Code(s): R55 - Syncope and collapse
[2018-10-12] MEDS ORDERED: IPRATROPIUM BROMIDE NEB SOLN 0.02% 2.5 ML VIAL NEB PRN (07:14)
[2018-10-12] MEDS ORDERED: LEVALBUTEROL HCL 1.25 MG/3 ML NEB NEB PRN (07:14)
[2018-10-12] MEDS: INSULIN ASPART 100 UNITS/ML 3 ML PEN SC SCH ×2 (08:02→12:09)
[2018-10-12] MEDS: LIDOCAINE 5% 1 PATCH TD SCH (08:09)
[2018-10-12] MEDS: SUCRALFATE 1 GM TAB PO SCH ×2 (08:11→12:12)
[2018-10-12] MEDS: FLUTICASONE PROPIONATE NA SPR 16 GM BTL SCH (08:11)
[2018-10-12] MEDS: AMOXICILLIN/CLAVULANATE 875 MG TAB PO SCH (08:11)
[2018-10-12] MEDS: FLUTICASONE HFA 110MCG INHALER INH SCH (08:11)
[2018-10-12] MEDS: ENOXAPARIN INJ 40 MG/0.4 ML SYR SQ SCH (08:12)
[2018-10-12] MEDS: guaiFENesin 600 MG TABCR PO SCH (08:12)
[2018-10-12] MEDS: PARoxetine HCl 20 MG TAB PO SCH (08:13)
[2018-10-12] MEDS: GABAPENTIN 100 MG CAP PO SCH (08:13)
[2018-10-12] MEDS: PANTOprazole 40 MG TAB PO SCH (08:13)
[2018-10-12 08:24] LABS: Creatinine Clr Calc Pharmacy 42.5 ml/min; Est GFR (African American) 44.6; Est GFR (Non-African American) 38.5
[2018-10-12] MEDS ORDERED: predniSONE 20 MG TAB PO SCH (09:00)
[2018-10-12] MEDS ORDERED: ATENOLOL 25 MG TABLET PO SCH (09:00)
--- NOTE | 2018-10-12 12:43 | Hospitalist Progress Note ---
Date of Service October 12, 2018 Assessment & Plan (1) Syncope: Syncope, Hypotension with Multifactorial possible causes such as Orthostasis, hypotension, Acute kidney injury, or hypoglycemia from new Linagliptin at home - most likely from Dehydration, with Acute kidney injury in the setting of poor oral intake, Lasix use -blood pressure improved and acute kidney injury resolved with IV fluids -patient can resume Atenolol, Lisinopril and Lasix at home -Patient should Follow up and discuss future medication management with primary care doctor in regards for kidney functions, blood pressure management Type 2 diabetes mellitus without fpc use of insulin -patient reported to hospitalist team that while on home medication of Linagliptin, she noted that her glucose levels were difficult to maintain above 90 -No noted hypoglycemia during hospital stay -Patient already has home supply of Sitagliptin at home and should take this medication for now instead of Linagliptin (Tradjenta) -Patient should Follow up and discuss future medication management with primary care doctor in regards for future diabetic management Acute Kidney Injury -resolved Chronic diastolic heart failure EF 55% monitored on telemetry and deemed to be in sinus rhytm by cardiology service resume Lasix Maxillary sinusitis CT head: There is mucosal thickening/fluid at the left maxillary sinus. There is sphenoid sinus fluid. There is a trace left mastoid effusion. continue Augmentin to complete total 10 day course COPD exacerbation chronic respiratory failure secondary to COPD on home O2 at night prednisone taper continue home inhalers History of Hypothyroidism euthyroid Tobacco use patient reports skin reactions to nicotine patch, problems with nicotine gum with dentures patient was previously on Chantix in the past Patient should Follow up and discuss future medication management with primary care doctor in regards Traumatic scalp wound secondary to above status post repair - healing well Posttraumatic right shoulder pain - no fracture per xray -pain is controlled DVT prophylaxis: Lovenox while in hospital Full code Discharge Diagnosis Syncope, Hypotension, acute kidney injury, COPD exacerbation, Type 2 diabetes mellitus without fpc use of insulin, Maxillary sinusitis, Tobacco Use Discharge Instructions Patient has medication prescription sent to [facility] [place] of Amoxicillin- Clavulanate twice a day for 7 more days Patient has medication prescription sent to [facility] [place] of prednisone taper: TAKE 40 MG X 2 DAYS, 30 MG X 2 DAYS, 20 MG X 2 DAYS, 10 MG X 2 DAYS, THEN STOP Patient has medication prescription sent to [facility] [place] of Sitagliptin 100 mg daily (Patient already has home supply of Sitagliptin at home and should take this medication for now instead of Linagliptin which is also called Tradjenta) Patient should Follow up and discuss future medication management with primary care doctor in regards for kidney functions, blood pressure management, diabetes management, and smoking cessation 10/17/2018 12:45 PM Provider Yesenia Davey [facility] 12/07/2018 1:00 PM Provider Gladys Barton Department Radiology, [place] 02/01/2019 1:40 PM Provider Yesenia Davey [facility] Subjective Patient seen while sitting up on bed on room air. Patient breathing at baseline. Patient denies shortness of breath. denies chest discomfort. denies abdominal pain. denies vomiting. denies headache or lightheadedness Physical Exam 2 Vital Signs (Past 24 Hours): Last Vital Signs Temp 36.9 C 10/12/18 11:22 Pulse 68 10/12/18 11:22 Resp 18 10/12/18 11:22 BP 134/72 10/12/18 11:22 Pulse Ox 93 10/12/18 11:22 Constitutional: WD/WN, vitals as above Eyes: PERRL, conjunctivae normal, anicteric sclerae EOM intact bilaterally ENMT: external ear and nose normal, oropharynx normal Neck: normal visual inspection and trachea midline Respiratory: normal respiratory effort, lungs clear to auscultation Cardiovascular: Rate/Rhythm: regular rate Gastrointestinal (Abdomen): normal bowel sounds, soft, nontender, no hepatosplenomegaly Musculoskeletal: no cyanosis or clubbing, extremities motor strength 5/5 Head/Neck/Chest: normocephalic and head atraumatic Neurologic: PERRL, EOMI, accommodation nl, no face palsy, no dysarthria CN' s II-XI intact bilaterally Psychiatric: A+Ox3, euthymic affect _ (1) Syncope Encounter type: Syncope type: unspecified Qualified Code(s): R55 - Syncope and collapse
--- NOTE | 2018-10-12 14:02 | Discharge Summary ---
Date of Service October 12, 2018 Admission HPI Per Admitting Provider History obtained from patient, family, and records. Medical history is significant for chronic respiratory failure secondary to COPD on home O2 at night, chronic systolic/diastolic heart failure (EF of 55% TTE 2016). hypothyroidism, hypertension, DM 2 on oral meds, CRI baseline creatinine 1.4, ongoing tobacco abuse. Recent confinement 2017 for COPD exacerbation. Last week patient started by PCP's office on linagliptin to replace sitagliptin because of insurance issues. Patient noted blood sugars to be lower than usual, 80s-90s. She was advised to continue linagliptin as medication may still be noted to her system. Last night patient felt dizzy lightheaded causing her to sit down on the chair. Patient woke up moments later on the floor with a painful bleeding scalp wound on the right side of her head. No chest pain, no S OB, no tongue biting no incontinence. Patient also noted achy right shoulder pain. Patient thought her blood sugars might be low. Started eating some candy. Patient alerted her son. BG at home noted to be 80. Patient brought to the emergency room for evaluation. SBP noted to be 70s on arrival at the ER. Medical History as above Surgical History : BTL, sinus surgery, nasal septum repair, wrist surgery cataract surgery Family History : Heart disease, Personal/Social history : Half pack daily, no chronic EtOH intake, disabled Admission Exam Per Admitting Provider GENERAL: Slightly uncomfortable, slightly tremulous, no respiratory distress SKIN: Normal color, warm HEENT: Dried blood right scalp, pink palpebral conjunctivae, no ptosis, dry buccal mucosa NECK : Supple, no tenderness CHEST : Decreased breath sounds, occasional scattered wheeze , no tenderness HEART : RRR, no obvious murmurs ABDOMEN: Some distention, nontender EXTREMITIES : No LE swelling/tenderness, no other conspicuous deformities noted NEUROLOGIC : Coherent, no facial asymmetry, no other gross focality Principal Diagnosis Syncope, Hypotension, acute kidney injury, COPD exacerbation, Type 2 diabetes mellitus without chcf use of insulin, Maxillary sinusitis, Tobacco Use Discharge Exam Constitutional WD/WN, vitals as above Eyes PERRL, conjunctivae normal, anicteric sclerae EOM intact bilaterally ENMT external ear and nose normal, oropharynx normal Neck normal visual inspection and trachea midline Respiratory normal respiratory effort, lungs clear to auscultation Cardiovascular Rate/Rhythm: regular rate Gastrointestinal (Abdomen) normal bowel sounds, soft, nontender, no hepatosplenomegaly Musculoskeletal no cyanosis or clubbing, extremities motor strength 5/5 Head/Neck/Chest: normocephalic and head atraumatic Neurologic PERRL, EOMI, accommodation nl, no face palsy, no dysarthria CN's II-XI intact bilaterally Psychiatric A+Ox3, euthymic affect Discharge Data Allergies Allergy/AdvReac Type Severity Reaction Status Date / Time adhesive Allergy Intermediate RASH Verified 01/26/18 06:39 Quinolones Allergy Intermediate LEVAQUIN Verified 01/26/18 06:39 codeine AdvReac Severe "BECAME Verified 01/26/18 06:39 ADDICTED TO MED" PREFERS NOT TO TAKE IF POSSIBLE. morphine AdvReac Severe ADDICTION-PREFERS Verified 01/26/18 06:39 NOT TO TAKE IF POSSIBLE. linagliptin AdvReac Mild hypoglycemi Verified 10/09/18 02:27 a Consultations 10/09/18 01:39 ED Decision to Admit Stat 10/10/18 10:13 Consult Cardiology Routine Ordered Studies 10/08/18 23:11 CT cervical spine wo con Urgent CT head/brain wo con Urgent CT thoracic spine wo con Urgent 10/09/18 00:34 US venous doppler LE Urgent Hospital Course (1) Syncope: Syncope, Hypotension with Multifactorial possible causes such as Orthostasis, hypotension, Acute kidney injury, or hypoglycemia from new Linagliptin at home - most likely from Dehydration, with Acute kidney injury in the setting of poor oral intake, Lasix use -blood pressure improved and acute kidney injury resolved with IV fluids -patient can resume Atenolol, Lisinopril and Lasix at home -Patient should Follow up and discuss future medication management with primary care doctor in regards for kidney functions, blood pressure management Type 2 diabetes mellitus without chcf use of insulin -patient reported to hospitalist team that while on home medication of Linagliptin, she noted that her glucose levels were difficult to maintain above 90 -No noted hypoglycemia during hospital stay -Patient already has home supply of Sitagliptin at home and should take this medication for now instead of Linagliptin (Tradjenta) -Patient should Follow up and discuss future medication management with primary care doctor in regards for future diabetic management Acute Kidney Injury -resolved Chronic diastolic heart failure EF 55% monitored on telemetry and deemed to be in sinus rhytm by cardiology service resume Lasix Maxillary sinusitis CT head: There is mucosal thickening/fluid at the left maxillary sinus. There is sphenoid sinus fluid. There is a trace left mastoid effusion. continue Augmentin to complete total 10 day course COPD exacerbation chronic respiratory failure secondary to COPD on home O2 at night prednisone taper continue home inhalers History of Hypothyroidism euthyroid Tobacco use patient reports skin reactions to nicotine patch, problems with nicotine gum with dentures patient was previously on Chantix in the past Patient should Follow up and discuss future medication management with primary care doctor in regards Traumatic scalp wound secondary to above status post repair - healing well Posttraumatic right shoulder pain - no fracture per xray -pain is controlled DVT prophylaxis: Lovenox while in hospital Full code Discharge Diagnosis Syncope, Hypotension, acute kidney injury, COPD exacerbation, 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, Maxillary sinusitis, Tobacco Use Discharge Instructions Patient has medication prescription sent to [facility] at [place] of Amoxicillin- Clavulanate twice a day for 7 more days Patient has medication prescription sent to [facility] at [place] of prednisone taper: TAKE 40 MG X 2 DAYS, 30 MG X 2 DAYS, 20 MG X 2 DAYS, 10 MG X 2 DAYS, THEN STOP Patient has medication prescription sent to [facility] at [place] of Sitagliptin 100 mg daily (Patient already has home supply of Sitagliptin at home and should take this medication for now instead of Linagliptin which is also called Tradjenta) Patient should Follow up and discuss future medication management with primary care doctor in regards for kidney functions, blood pressure management, diabetes management, and smoking cessation 10/17/2018 12:45 PM Provider DO [facility], [place] 12/07/2018 1:00 PM Provider Gladys Barton Department Radiology, [place] 02/01/2019 1:40 PM Provider Yesenia Davey DO [facility] Total Time Total Time Spent Total Time Spent (In Minutes): 40 minutes Total Time Includes: Examination of the Patient, Discharge Planning and Medication Reconciliation Discharge Plan Discharge Items Patient Disposition: Home - Self-Care Reason For Visit: HYPOTENSION Discharge Diagnosis: Syncope, Hypotension, acute kidney injury, COPD exacerbation, 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, Maxillary sinusitis, Tobacco Use Condition: Good Discharge Goals: Improve disease control Activity: Resume your previous activity Non-emergency contact: Primary Care Provider Call non-emergency contact if: you have any medication questions Diet: Carb Consistent or DM2 Addtl Provider Instructions: Discharge Instructions Patient has medication prescription sent to [facility] at [place] of Amoxicillin- Clavulanate twice a day for 7 more days Patient has medication prescription sent to [facility] of prednisone taper: TAKE 40 MG X 2 DAYS, 30 MG X 2 DAYS, 20 MG X 2 DAYS, 10 MG X 2 DAYS, THEN STOP Patient has medication prescription sent to [facility] of Sitagliptin 100 mg daily (Patient already has home supply of Sitagliptin at home and should take this medication for now instead of Linagliptin which is also called Tradjenta) Patient should Follow up and discuss future medication management with primary care doctor in regards for kidney functions, blood pressure management, diabetes managment, and smoking cessation 10/17/2018 12:45 PM Provider Yesenia Davey [facility] 12/07/2018 1:00 PM Provider Gladys Barton Department Radiology, [place] 02/01/2019 1:40 PM [facility] Prescriptions: New amoxicillin-pot clavulanate 875-125 mg Tablet 1 tab PO BIDM 7 Days Qty: 14 RF: 0 sitagliptin [Januvia] 100 mg Tablet 100 mg PO DAILY 30 Days Qty: 30 RF: 0 prednisone 20 mg Tablet 40 mg PO DIRECTED 8 Days Qty: 10 RF: 0 Continue atenolol 25 mg tablet 25 mg PO DAILY RF: 0 cholecalciferol (vitamin D3) 50,000 unit Tablet 50,000 unit PO WK RF: 0 potassium chloride [Klor-Con M10] 10 mEq tablet,ER particles/crystals 10 meq PO BIDM RF: 0 furosemide 20 mg tablet 20 mg PO DAILY RF: 0 amitriptyline 25 mg Tablet 25 mg PO HS RF: 0 fluticasone [Flovent HFA] 110 mcg/actuation HFA aerosol inhaler 2 puff Inhalation BID RF: 0 montelukast 10 mg tablet 10 mg PO HS RF: 0 sucralfate 1 gram Tablet 1 g PO Q6H RF: 0 aspirin [Aspir-81] 81 mg Tablet,Delayed Release (Dr/Ec) 81 mg PO DAILY RF: 0 levothyroxine 75 mcg Tablet 75 mcg PO DAILY RF: 0 lisinopril 10 mg Tablet 10 mg PO DAILY RF: 0 atorvastatin 10 mg Tablet 10 mg PO HS RF: 0 gabapentin 300 mg Capsule 300 mg PO TID RF: 0 ropinirole 0.25 mg Tablet 0.25 mg PO HS RF: 0 umeclidinium-vilanterol [Anoro Ellipta] 62.5-25 mcg/actuation blister with device 1 puff Inhalation DAILY RF: 0 ipratropium bromide 0.02 % Solution 2.5 ml INHALATION Q4H PRN (Reason: Shortness Of Breath Or Wheezing) RF: 0 clotrimazole 10 mg Melony 10 mg Mucous Membrane 5XD RF: 0 tramadol 50 mg Tablet 50 mg PO Q6H PRN (Reason: Pain) RF: 0 azelastine 137 mcg (0.1 %) aerosol,spray 2 spray Intranasal BID RF: 0 nitroglycerin [Nitrostat] 0.4 mg Tablet, Sublingual 0.4 mg Sublingual UD PRN (Reason: Chest Pain) RF: 0 pantoprazole 40 mg Tablet,Delayed Release (Dr/Ec) 40 mg PO QAM RF: 0 paroxetine HCl 40 mg tablet 40 mg PO QAM RF: 0 mometasone [Nasonex] 50 mcg/actuation [place],Non-Aerosol 2 spray INTRANASAL BID RF: 0 levalbuterol HCl 1.25 mg/3 mL Solution For Nebulization 1.25 mg INHALATION QID PRN (Reason: Shortness Of Breath Or Wheezing) RF: 0 levocetirizine 5 mg Tablet 5 mg PO PM RF: 0 calcium carbonate 500 mg calcium (1,250 mg) Tablet,Chewable 500 mg PO 5XD PRN (Reason: Gi Upset) RF: 0 inulin [Fiber Gummies] 2 gram Tablet,Chewable 4 g PO QAM RF: 0 guaifenesin 100 mg/5 mL Liquid 1 dose PO UD PRN (Reason: Cough) RF: 0 Discontinued linagliptin [Tradjenta] 5 mg Tablet 5 mg PO DAILY RF: 0 guaifenesin 600 mg Tablet Extended Release 12hr 1,200 mg PO Q12H RF: 0 diphenhydramine HCl 25 mg Tablet 25 mg PO UD PRN (Reason: Unknown) RF: 0 Stand-Alone Forms: [facility] Discharge Orders: Discharge Order (Routine); Ordered 10/12/18 Ordered By: Rasheed Joy Admission Data Admit Date/Time: 10/09/18 01:50 Attending Provider: Rasheed Joy Admit Provider: Jose Reid Primary Care Provider: Magalie Vinson Other Providers: Jose Reid ; Roque Skinner ; Ventura Borjas ; Wyatt Weinberg ; Juan Jose Valenzuela ; Sebastian Tenorio ; Jack Saunders ; Mitzi Redd ; Evelyn Quinteros Service: Telemetry Medical
[2018-10-13] MEDS ORDERED: SITAGLIPTIN PHOSPHATE 100 MG TAB PO SCH (09:00)
== END 2018-10-12 15:55 | disposition home or self-care (01) | DRG 683 ==
LOC: ED 22:47 → 2N 10-09 01:50 → SUATTDRO 10-09 01:50 → 2N 10-09 02:24

== ENCOUNTER 2022-01-27 17:01 | Inpatient (IN) ==
[2022-01-27] MEDS ORDERED: ALBUTEROL 0.083% NEBU SOLN 3 ML VIAL NEB STA (17:11)
--- NOTE | 2022-01-27 17:11 | Emergency Department Note ---
Impression & Plan Hypoxic, COPD (chronic obstructive pulmonary disease) ED Provider Note NAME: DEJA LACY AGE: 71 SEX: F : 1950 ARRIVES VIA: Ambulance INFORMANT: Patient ED PROVIDER(S): Juan Antonio Schuster DO CHIEF COMPLAINT: shortness of breath HPI: Patient is a 71-year-old female with past medical history of syncope, COPD, acute respiratory failure and trach obstruction who presents to the ER for shortness of breath. She notes she ran out of her inhaler which she uses every 6 hours yesterday. Her shortness of breath started getting worse. She was trying to contact her PCP as she was out of her DuoNeb's. They referred her into the ER. Patient denies any headache or change in vision. No cough or runny nose. No chest pain. No belly pain nausea vomiting or diarrhea. No dysuria urgency or frequency. No recent weight gain. She was brought in by EMS given 2 duo nebs as well as 125 Solu-Medrol. She notes she is feeling better. No fevers. ROS: See above HPI for pertinent positives & negatives. A total of 10 systems reviewed and were otherwise negative. PAST MEDICAL HISTORY:See Below PAST SURGICAL HISTORY:See Below FAMILY HISTORY:See Below SOCIAL HISTORY:See Below HOME MEDICATIONS:See Below ALLERGIES:See Below VITALS:See Below PHYSICAL EXAMINATION: GENERAL: Sitting up in bed, alert, chronically ill-appearing, disheveled EYE EXAM: normal conjunctiva. OROPHARYNX: mucous membranes are moist NECK: supple, no nuchal rigidity, no adenopathy, non-tender LUNGS: Poor air movement with wheezing bilaterally. Normal chest wall mechanics HEART: no murmurs, S1 normal and S2 normal ABDOMEN: abdomen soft, non-tender, normo-active bowel sounds, no masses, no rebound or guarding. UPPER EXTREMITIES: upper extremities are grossly normal. LOWER EXTREMITIES: No pitting edema. Left calf slightly larger than right old per patient NEURO EXAM: Normal sensorium, cranial nerves II-XII grossly intact, normal speech, no gross weakness of arms, no gross weakness of legs. MEDICAL DECISION MAKING: Patient is a 71-year-old female who presents the ER for the above-stated complaint. IV was established blood was obtained. Labs show mild glucose stenosis at 11.3. No significant anemia. BMP was unremarkable. LFTs bilirubin troponin and Pro-Erik was normal. Lipase was normal. COVID was negative. Chest x-ray unremarkable. She was given multiple neb treatments while in the ER. She received steroids prior to arrival. She was placed on nasal cannula as she was hypoxic at 84% on room air. She was updated bedside discussed with hospitalist admitted for further work-up. Triage Nursing notes reviewed. Limited review of prior medical records performed Vital Signs: reviewed and remarkable for no significant abnormalities Differential diagnosis: Differential diagnoses includes but is not limited to pneumonia, bronchitis, COPD/Asthma exacerbation, pneumothorax, pulmonary embolism, congestive heart failure, acute coronary syndrome ER treatment provided: See below Diagnostics interpreted by me: ECG: Sinus rhythm rate 86 Left axis No PVCs QTC 459 Cardiac Monitoring: An order was placed for continuous cardiac monitoring. The monitor shows a rate of 75 with sinus rhythm. Laboratory studies: As stated above and show below. Imaging studies: Portable AP upright 1 view of the chest unremarkable Consultation(s): Discussed with hospitalist for further evaluation Procedures: none Critical Care: I have personally spent 31 minutes of critical care time in the direct management of this patient. This includes bedside care, interpretation of diagnostic studies, and testing, discussion with consultants, patient, and family members, and other required patient management activities. This 31 minutes is in excess of all separately billable procedures. Past Med/Surg History Medical History (Updated 01/27/22 @ 22:48 by Juan Antonio Schuster DO) COPD (chronic obstructive pulmonary disease) Diabetes Social History Smoking Status: Current every day smoker Hx Alcohol Use: No Hx Substance Use: No Preferred Language: Cuban Communication Ability: Effective Computer Installer Required: No Beliefs That Will Affect Care: None Current Living Situation: Alone Feels Safe at Home: Yes Assistive Devices: Oxygen - at Night Allergies Allergies Allergy/AdvReac Type Severity Reaction Status Date / Time adhesive Allergy Intermediate RASH Verified 01/27/22 18:41 Quinolones Allergy Intermediate LEVAQUIN Verified 01/27/22 18:41 codeine AdvReac Severe "BECAME Verified 01/27/22 18:41 ADDICTED TO MED" PREFERS NOT TO TAKE IF POSSIBLE. morphine AdvReac Severe ADDICTION-PREFERS Verified 01/27/22 18:41 NOT TO TAKE IF POSSIBLE. linagliptin AdvReac Mild hypoglycemi Verified 06/07/22 18:41 a Home Meds Home Medications Medication Instructions Recorded Confirmed amitriptyline 25 mg tablet 25 mg PO HS 10/09/18 01/27/22 atenolol 25 mg tablet 25 mg PO QAM 10/09/18 01/27/22 atorvastatin 10 mg tablet 10 mg PO HS 10/09/18 01/27/22 azelastine 137 mcg (0.1 %) nasal 2 spray INTRANASAL BID 10/09/18 01/27/22 spray aerosol calcium carbonate 500 mg calcium 500 mg PO 5XD PRN 10/09/18 01/27/22 (1,250 mg) chewable tablet cholecalciferol (vitamin D3) 1,250 50,000 unit PO WK 10/09/18 01/27/22 mcg (50,000 unit) tablet clotrimazole 10 mg tyrell 10 mg MUCOUS MEMBRANE 5XD 10/09/18 01/27/22 fluticasone propionate 110 2 puff INHALATION BID 10/09/18 01/27/22 mcg/actuation HFA aerosol inhaler furosemide 20 mg tablet 20 mg PO DAILY 10/09/18 01/27/22 gabapentin 300 mg capsule 300 mg PO USEASDIRECTD 10/09/18 01/27/22 ipratropium bromide 0.02 % 2.5 ml INHALATION Q4H PRN 10/09/18 01/27/22 solution for inhalation levalbuterol HCl 1.25 mg/3 mL 1.25 mg INHALATION QID PRN 10/09/18 01/27/22 solution for nebulization levocetirizine 5 mg tablet 5 mg PO PM 10/09/18 01/27/22 levothyroxine 75 mcg tablet 75 mcg PO QAM 10/09/18 01/27/22 lisinopril 10 mg tablet 10 mg PO DAILY 10/09/18 01/27/22 montelukast 10 mg tablet 10 mg PO HS 10/09/18 01/27/22 nitroglycerin 0.4 mg sublingual 0.4 mg SUBLINGUAL UD PRN 10/09/18 01/27/22 tablet (Nitrostat) pantoprazole 40 mg tablet,delayed 40 mg PO QAM 10/09/18 01/27/22 release paroxetine HCl 40 mg tablet 40 mg PO QAM 10/09/18 01/27/22 potassium chloride 10 mEq 10 meq PO BIDM 10/09/18 01/27/22 tablet,extended release(part/cryst) ropinirole 0.25 mg tablet 0.25 mg PO HS 10/09/18 01/27/22 sucralfate 1 gram tablet 1 g PO Q6H 10/09/18 01/27/22 tramadol 50 mg tablet 50 mg PO Q6H PRN 10/09/18 01/27/22 umeclidinium 62.5 mcg-vilanterol 1 puff INHALATION DAILY 10/09/18 01/27/22 25 mcg/actuation powdr for inhalation aspirin 81 mg capsule 81 mg PO QAM 01/27/22 01/27/22 benzonatate 100 mg capsule 100 mg PO BID PRN 01/27/22 01/27/22 guaifenesin 600 mg tablet, 600 mg PO BID PRN 01/27/22 01/27/22 extended release 12 hr (Mucinex) Results & Data (ED) Vital Signs Vital Signs - 24 hr 01/27/22 17:07 01/27/22 17:10 01/27/22 17:11 Temperature 36.5 C Temperature Source Oral Pulse Rate 95 H 86 Pulse Rate [Right Finger] Pulse Rate from SpO2 Sensor Pulse Rhythm Regular Pulse Rhythm [Right Finger] Pulse Strength Normal Pulse Strength [Right Finger] Respiratory Rate 24 26 H Respiratory Effort / Characteristics Non-Labored Respiratory Depth Normal Respiratory Pattern Regular Blood Pressure 121/68 121/68 Blood Pressure [Right Arm] Blood Pressure Mean 85 85 Blood Pressure Mean [Right Arm] Blood Pressure Position Sitting Pulse Oximetry 90 89 L Oxygen Delivery Method Room Air Room Air Oxygen Flow Rate Sepsis Recent Fever Within 48 Hours No Sepsis New/Unexplained Change in Mental Status No Sepsis Action Taken by Nursing No Action Required 01/27/22 17:20 01/27/22 17:30 01/27/22 17:40 Temperature Temperature Source Pulse Rate 89 103 H 93 H Pulse Rate [Right Finger] Pulse Rate from SpO2 Sensor Pulse Rhythm Regular Pulse Rhythm [Right Finger] Pulse Strength Pulse Strength [Right Finger] Respiratory Rate 18 20 19 Respiratory Effort / Characteristics Respiratory Depth Respiratory Pattern Blood Pressure Blood Pressure [Right Arm] Blood Pressure Mean Blood Pressure Mean [Right Arm] Blood Pressure Position Pulse Oximetry 90 96 94 Oxygen Delivery Method Room Air Room Air Room Air Oxygen Flow Rate Sepsis Recent Fever Within 48 Hours Sepsis New/Unexplained Change in Mental Status Sepsis Action Taken by Nursing 01/27/22 17:50 01/27/22 18:00 01/27/22 18:30 Temperature Temperature Source Pulse Rate 91 H 89 81 Pulse Rate [Right Finger] Pulse Rate from SpO2 Sensor 91 H 81 Pulse Rhythm Pulse Rhythm [Right Finger] Pulse Strength Pulse Strength [Right Finger] Respiratory Rate 15 26 H 13 Respiratory Effort / Characteristics Respiratory Depth Respiratory Pattern Blood Pressure Blood Pressure [Right Arm] Blood Pressure Mean Blood Pressure Mean [Right Arm] Blood Pressure Position Pulse Oximetry 86 L 87 L 97 Oxygen Delivery Method Room Air Nasal Cannula Oxygen Flow Rate 2 Sepsis Recent Fever Within 48 Hours Sepsis New/Unexplained Change in Mental Status Sepsis Action Taken by Nursing 01/27/22 19:00 01/27/22 19:30 01/27/22 20:00 Temperature Temperature Source Pulse Rate 85 84 76 Pulse Rate [Right Finger] Pulse Rate from SpO2 Sensor 85 85 76 Pulse Rhythm Pulse Rhythm [Right Finger] Pulse Strength Pulse Strength [Right Finger] Respiratory Rate 18 17 20 Respiratory Effort / Characteristics Respiratory Depth Respiratory Pattern Blood Pressure Blood Pressure [Right Arm] Blood Pressure Mean Blood Pressure Mean [Right Arm] Blood Pressure Position Pulse Oximetry 96 96 96 Oxygen Delivery Method Oxygen Flow Rate Sepsis Recent Fever Within 48 Hours Sepsis New/Unexplained Change in Mental Status Sepsis Action Taken by Nursing 01/27/22 20:29 01/27/22 20:30 01/27/22 21:00 Temperature Temperature Source Pulse Rate 84 84 79 Pulse Rate [Right Finger] 87 Pulse Rate from SpO2 Sensor 85 Pulse Rhythm Pulse Rhythm [Right Finger] Regular Pulse Strength Pulse Strength [Right Finger] Normal Respiratory Rate 24 18 13 Respiratory Effort / Characteristics Non-Labored Spontaneous SOB on Exertion Respiratory Depth Respiratory Pattern Blood Pressure 125/72 117/67 101/50 L Blood Pressure [Right Arm] 117/67 Blood Pressure Mean 89 83 67 Blood Pressure Mean [Right Arm] 83 Blood Pressure Position Pulse Oximetry 94 94 Oxygen Delivery Method Nasal Cannula Oxygen Flow Rate 3 Sepsis Recent Fever Within 48 Hours Sepsis New/Unexplained Change in Mental Status Sepsis Action Taken by Nursing Laboratory Data Result diagrams: 01/27/22 17:14 01/27/22 17:14 Lab Results 01/27/22 01/27/22 01/27/22 Range/Units 17:14 17:14 17:14 WBC 11.39 H (4.8-10.8) K/uL RBC 4.43 (4.2-5.4) M/uL Hgb 14.1 (12.0-16.0) g/dL Hct 42.3 (37-47) % MCV 95.5 (80-100) fL MCH 31.8 (25-34) pg MCHC 33.3 (32-36) g/dL RDW Std Deviation 46.4 H (36.4-46.3) fL RDW Coeff of Scar 13.3 (11.5-14.5) % Plt Count 394 (130-400) K/uL MPV 10.3 (7.4-10.4) fL Immature Gran % (Auto) 0.2 % Neut % (Auto) 51.0 % Lymph % (Auto) 36.3 % [place] % (Auto) 9.0 % Eos % (Auto) 3.2 % Baso % (Auto) 0.3 % Neut # (Auto) 5.82 (1.4-6.5) K/uL Lymph # (Auto) 4.13 H (1.2-3.4) K/uL [place] # (Auto) 1.02 H (0.11-0.59) K/uL Eos # (Auto) 0.37 (0-0.5) K/uL Baso # (Auto) 0.03 (0-0.2) K/uL Immature Gran # (Auto) 0.02 (0.00-0.02) K/uL APTT (21.0-31.0) Seconds PTT Ratio ABG pH (7.35-7.45) ABG pCO2 (35-46) mmHg ABG pO2 (80-95) mmHg ABG HCO3 (19-24) mmol/L ABG O2 Saturation (90-95) % ABG Base Excess (-9-1.8) mEq/L Franky Test (Pos) Barometric Pressure mm/Hg Oxygen Given Sodium 140 (136-145) mmol/L Potassium 3.9 (3.5-5.1) mmol/L Chloride 109 H (98-107) mmol/L Carbon Dioxide 25 (21-32) mmol/L Anion Gap 6 (3-11) BUN 18 (6-23) mg/dl Creatinine 1.22 H (0.6-1.2) mg/dl Est Cr Clr Drug Dosing 47.6 ml/min Est GFR ( Amer) 52.0 ml/min Est GFR (Non-Af Amer) 44.8 ml/min BUN/Creatinine Ratio 14.8 (10-20) Glucose 115 H (70-99(Fasting)) mg/dl Lactate (0.4-2.0) mmol/L Calcium 9.2 (8.5-10.1) mg/dl Magnesium 1.8 (1.7-2.4) mg/dl Total Bilirubin 0.5 (0.2-1.0) mg/dl AST 16 (13-39) U/L ALT 15 (7-52) U/L Alkaline Phosphatase 95 (34-104) U/L Troponin I High Sens 4.7 (0-14) pg/ml Total Protein 7.4 (6.0-8.3) gm/dl Albumin 3.8 (3.4-5.0) gm/dl Globulin 3.6 (2.5-4.0) gm/dl Albumin/Globulin Ratio 1.1 (0.9-2) Lipase 31 (11-82) U/L Procalcitonin (0-0.5) ng/ml 01/27/22 01/27/22 01/27/22 Range/Units 17:14 17:14 20:30 WBC (4.8-10.8) K/uL RBC (4.2-5.4) M/uL Hgb (12.0-16.0) g/dL Hct (37-47) % MCV (80-100) fL MCH (25-34) pg MCHC (32-36) g/dL RDW Std Deviation (36.4-46.3) fL RDW Coeff of Scar (11.5-14.5) % Plt Count (130-400) K/uL MPV (7.4-10.4) fL Immature Gran % (Auto) % Neut % (Auto) % Lymph % (Auto) % [place] % (Auto) % Eos % (Auto) % Baso % (Auto) % Neut # (Auto) (1.4-6.5) K/uL Lymph # (Auto) (1.2-3.4) K/uL [place] # (Auto) (0.11-0.59) K/uL Eos # (Auto) (0-0.5) K/uL Baso # (Auto) (0-0.2) K/uL Immature Gran # (Auto) (0.00-0.02) K/uL APTT 26.8 (21.0-31.0) Seconds PTT Ratio 1.0 ABG pH (7.35-7.45) ABG pCO2 (35-46) mmHg ABG pO2 (80-95) mmHg ABG HCO3 (19-24) mmol/L ABG O2 Saturation (90-95) % ABG Base Excess (-9-1.8) mEq/L Franky Test (Pos) Barometric Pressure mm/Hg Oxygen Given Sodium (136-145) mmol/L Potassium (3.5-5.1) mmol/L Chloride (98-107) mmol/L Carbon Dioxide (21-32) mmol/L Anion Gap (3-11) BUN (6-23) mg/dl Creatinine (0.6-1.2) mg/dl Est Cr Clr Drug Dosing ml/min Est GFR ( Amer) ml/min Est GFR (Non-Af Amer) ml/min BUN/Creatinine Ratio (10-20) Glucose (70-99(Fasting)) mg/dl Lactate 1.7 (0.4-2.0) mmol/L Calcium (8.5-10.1) mg/dl Magnesium (1.7-2.4) mg/dl Total Bilirubin (0.2-1.0) mg/dl AST (13-39) U/L ALT (7-52) U/L Alkaline Phosphatase (34-104) U/L Troponin I High Sens (0-14) pg/ml Total Protein (6.0-8.3) gm/dl Albumin (3.4-5.0) gm/dl Globulin (2.5-4.0) gm/dl Albumin/Globulin Ratio (0.9-2) Lipase (11-82) U/L Procalcitonin < 0.05 (0-0.5) ng/ml 01/27/22 Range/Units 20:41 WBC (4.8-10.8) K/uL RBC (4.2-5.4) M/uL Hgb (12.0-16.0) g/dL Hct (37-47) % MCV (80-100) fL MCH (25-34) pg MCHC (32-36) g/dL RDW Std Deviation (36.4-46.3) fL RDW Coeff of Scar (11.5-14.5) % Plt Count (130-400) K/uL MPV (7.4-10.4) fL Immature Gran % (Auto) % Neut % (Auto) % Lymph % (Auto) % [place] % (Auto) % Eos % (Auto) % Baso % (Auto) % Neut # (Auto) (1.4-6.5) K/uL Lymph # (Auto) (1.2-3.4) K/uL [place] # (Auto) (0.11-0.59) K/uL Eos # (Auto) (0-0.5) K/uL Baso # (Auto) (0-0.2) K/uL Immature Gran # (Auto) (0.00-0.02) K/uL APTT (21.0-31.0) Seconds PTT Ratio ABG pH 7.39 (7.35-7.45) ABG pCO2 43 (35-46) mmHg ABG pO2 83 (80-95) mmHg ABG HCO3 26 H (19-24) mmol/L ABG O2 Saturation 93.0 (90-95) % ABG Base Excess 0.6 (-9-1.8) mEq/L Franky Test POS (Pos) Barometric Pressure 727.5 mm/Hg Oxygen Given 2 L Sodium (136-145) mmol/L Potassium (3.5-5.1) mmol/L Chloride (98-107) mmol/L Carbon Dioxide (21-32) mmol/L Anion Gap (3-11) BUN (6-23) mg/dl Creatinine (0.6-1.2) mg/dl Est Cr Clr Drug Dosing ml/min Est GFR ( Amer) ml/min Est GFR (Non-Af Amer) ml/min BUN/Creatinine Ratio (10-20) Glucose (70-99(Fasting)) mg/dl Lactate (0.4-2.0) mmol/L Calcium (8.5-10.1) mg/dl Magnesium (1.7-2.4) mg/dl Total Bilirubin (0.2-1.0) mg/dl AST (13-39) U/L ALT (7-52) U/L Alkaline Phosphatase (34-104) U/L Troponin I High Sens (0-14) pg/ml Total Protein (6.0-8.3) gm/dl Albumin (3.4-5.0) gm/dl Globulin (2.5-4.0) gm/dl Albumin/Globulin Ratio (0.9-2) Lipase (11-82) U/L Procalcitonin (0-0.5) ng/ml Administered Medications Discontinued Medications Albuterol (Albuterol 0.083% Nebu Soln 3 Ml Vial) 2.5 mg NEB NOW STA; Protocol Stop: 01/27/22 17:12 Last Admin: 01/27/22 17:20 Dose: 2.5 mg Documented by: [id number] Albuterol (Albuterol 0.5% Neb Soln 2.5 Mg/0.5 Ml Vial) 2.5 mg NEB NOW STA; Protocol Stop: 01/27/22 18:13 Last Admin: 01/27/22 18:23 Dose: 2.5 mg Documented by: [id number] Imaging Data Radiologist's Impression: Chest X-Ray 01/27/22 17:07 XR chest 1V portable HISTORY: 71 years-old Female Chest Pain acute atypical chest pain COMPARISON: Chest radiograph 10/08/2018 TECHNIQUE: Portable AP view of the chest FINDINGS: The cardiomediastinal and hilar silhouettes are within normal limits. Atherosclerosis of the thoracic aorta. No pneumothorax, pleural effusion, airspace consolidation or overt pulmonary edema. Degenerative changes of the shoulders and spine. Mild chronic interstitial coarsening of the lung bases. IMPRESSION: No acute process. ACT 112: Negative or not required by law. The above report was generated using voice recognition software. It may contain grammatical, syntax or spelling errors. Electronically signed by: Negro Rodarte M.D. 01/27/2022 5:26 PM Discharge Plan Visit Data Chief Complaint: Shortness of Breath/Dyspnea ED Provider: Juan Antonio Schuster Discharge Problem: Hypoxic, COPD (chronic obstructive pulmonary disease) Patient Disposition: Admitted As Inpatient Discharge Instructions Interventions: ED Discharge Assessment Last Done: 01/27/22 22:35 Discharge Problem: COPD (chronic obstructive pulmonary disease) Qualifiers: COPD type: unspecified COPD Qualified Code(s): J44.9 - Chronic obstructive pulmonary disease, unspecified
--- NOTE | 2022-01-27 17:27 | XRay Report ---
XR chest 1V portable HISTORY: 71 years-old Female Chest Pain acute atypical chest pain COMPARISON: Chest radiograph 10/08/2018 TECHNIQUE: Portable AP view of the chest FINDINGS: The cardiomediastinal and hilar silhouettes are within normal limits. Atherosclerosis of the thoracic aorta. No pneumothorax, pleural effusion, airspace consolidation or overt pulmonary edema. Degenerat hussein changes of the shoulders and spine. Mild chronic interstitial coarsening of the lung bases. IMPRESSION: No acute process. ACT 112: Negative or not required by law. The above report was generated using voice recognition software. It may contain grammatical, syntax o r spelling errors. Electronically signed by: Negro Rodarte M.D. 01/27/2022 5:26 PM
[2022-01-27 17:35] LABS: Basophils # (auto) 0.03 K/uL (0-0.2); Basophils % (auto) 0.3 %; Eosinophils # (auto) 0.37 K/uL (0-0.5); Eosinophils % (auto) 3.2 %; Hematocrit (blood only) 42.3 % (37-47); Hemoglobin 14.1 g/dL (12.0-16.0); Immature Granulocytes # (auto) 0.02 K/uL (0.00-0.02); Immature Granulocytes % (auto) 0.2 %; Lymphocytes # (auto) 4.13 K/uL (1.2-3.4); Lymphocytes % (auto) 36.3 %; Mean Corpuscular Hemoglobin 31.8 pg (25-34); Mean Corpuscular Hgb Conc 33.3 g/dL (32-36); Mean Corpuscular Volume 95.5 fL (80-100); Mean Platelet Volume 10.3 fL (7.4-10.4); Monocytes # (auto) 1.02 K/uL (0.11-0.59); Neutrophils # (auto) 5.82 K/uL (1.4-6.5); Platelet Count 394 K/uL (130-400); RDW Coefficient of Variation 13.3 % (11.5-14.5); RDW Standard Deviation 46.4 fL (36.4-46.3); Red Blood Count 4.43 M/uL (4.2-5.4); White Blood Count 11.39 K/uL (4.8-10.8)
[2022-01-27 18:00] LABS: Troponin I High Sensitivity 4.7 pg/ml (0-14)
[2022-01-27 18:05] LABS: Albumin Globulin Ratio 1.1 (0.9-2); Albumin Level 3.8 gm/dl (3.4-5.0); BUN Creatinine Ratio 14.8 (10-20); Bilirubin,Total 0.5 mg/dl (0.2-1.0); Calcium 9.2 mg/dl (8.5-10.1); Creatinine Clr Calc Pharmacy 47.6 ml/min; Est GFR (Non-African American) 44.8 ml/min; Globulin 3.6 gm/dl (2.5-4.0); Potassium 3.9 mmol/L (3.5-5.1); Total Protein 7.4 gm/dl (6.0-8.3)
[2022-01-27] MEDS ORDERED: ALBUTEROL 0.5% NEB SOLN 2.5 MG/0.5 ML VIAL NEB STA (18:12)
[2022-01-27 20:44] LABS: Partial Thromboplastin Time 26.8 Seconds (21.0-31.0)
[2022-01-27 21:23] LABS: Allen Test POS (Pos); Base Excess ABG 0.6 mEq/L (-9-1.8); HCO3 ABG 26 mmol/L (19-24); PCO2 ABG 43 mmHg (35-46); PO2 ABG 83 mmHg (80-95); pH ABG 7.39 (7.35-7.45)
--- NOTE | 2022-01-27 21:23 | History & Physical Report ---
Date of Service January 27, 2022 Assessment & Plan (1) COPD exacerbation: Plan: hx chronic respiratory failure secondary to COPD on home O2 at night patient nontoxic. Chronic diastolic heart failure EF 55%, euvolemic HTN, stable hypothyroidism, euthyroid as of recent outpatient TSH DM 2 on oral meds, well controlled as of recent outpatient hemoglobin A1c of 6.2 last November 2021 ongoing tobacco abuse GMF Nebs RTC, prednisone course No indication for antibiotics currently. Pulmonary consult if without improvement Basal bolus insulin, ISS BG goal 1 10-1 40, carb count coverage Nicotine patch as needed DVT prophylaxis. Heparin subcu Full code Text document was generated using [employer] voice recognition software. It may contain grammatical or spelling errors. Kindly contact undersigned for clarification of any documentation item in question. History of Present Illness Chief Complaint: Worsening cough, shortness of breath Primary Care Provider: Dr. Alvarado History obtained from patient and records. Medical history is significant for chronic respiratory failure secondary to COPD on home O2 at night, chronic systolic/diastolic heart failure (EF of 60-65% TTE 2018). HTN, DM 2 on oral meds, CRI baseline creatinine 1.4, hypothyroidism, ongoing tobacco abuse. Last confinement September 2018 for multifactorial syncope. 2 days history of sinus congestion followed by cough productive of clear sputum. Worsening shortness of breath. No chest pain. No fever, no chills. No weight gain. No known recent sick contacts. Patient completed COVID-19 vaccination. EMS summoned to patient's home today. Given neb treatment and Solu-Medrol on route to the ER. Patient feeling much better upon arrival at the ER. Medical Historyas above Surgical History : BTL, sinus surgery, nasal septum repair, wrist surgery cataract surgery Family History : Heart disease Personal/Social history : Half pack daily, no chronic EtOH intake, disabled Allergies Allergy/AdvReac Type Severity Reaction Status Date / Time adhesive Allergy Intermediate RASH Verified 01/27/22 18:41 Quinolones Allergy Intermediate LEVAQUIN Verified 01/27/22 18:41 codeine AdvReac Severe "BECAME Verified 01/27/22 18:41 ADDICTED TO MED" PREFERS NOT TO TAKE IF POSSIBLE. morphine AdvReac Severe ADDICTION-PREFERS Verified 01/27/22 18:41 NOT TO TAKE IF POSSIBLE. linagliptin AdvReac Mild hypoglycemi Verified 01/27/22 18:41 a Home Medications Medication Instructions Recorded Confirmed Type amitriptyline 25 mg tablet 25 mg PO HS 10/09/18 01/27/22 History atenolol 25 mg tablet 25 mg PO QAM 10/09/18 01/27/22 History atorvastatin 10 mg tablet 10 mg PO HS 10/09/18 01/27/22 History azelastine 137 mcg (0.1 %) nasal 2 spray INTRANASAL BID 10/09/18 01/27/22 History spray aerosol calcium carbonate 500 mg calcium 500 mg PO 5XD PRN 10/09/18 01/27/22 History (1,250 mg) chewable tablet cholecalciferol (vitamin D3) 1,250 50,000 unit PO WK 10/09/18 01/27/22 History mcg (50,000 unit) tablet clotrimazole 10 mg tyrell 10 mg MUCOUS MEMBRANE 5XD 10/09/18 01/27/22 History fluticasone propionate 110 2 puff INHALATION BID 10/09/18 01/27/22 History mcg/actuation HFA aerosol inhaler furosemide 20 mg tablet 20 mg PO DAILY 10/09/18 01/27/22 History gabapentin 300 mg capsule 300 mg PO USEASDIRECTD 10/09/18 01/27/22 History ipratropium bromide 0.02 % 2.5 ml INHALATION Q4H PRN 10/09/18 01/27/22 History solution for inhalation levalbuterol HCl 1.25 mg/3 mL 1.25 mg INHALATION QID PRN 10/09/18 01/27/22 History solution for nebulization levocetirizine 5 mg tablet 5 mg PO PM 10/09/18 01/27/22 History levothyroxine 75 mcg tablet 75 mcg PO QAM 10/09/18 01/27/22 History lisinopril 10 mg tablet 10 mg PO DAILY 10/09/18 01/27/22 History montelukast 10 mg tablet 10 mg PO HS 10/09/18 01/27/22 History nitroglycerin 0.4 mg sublingual 0.4 mg SUBLINGUAL UD PRN 10/09/18 01/27/22 History tablet (Nitrostat) pantoprazole 40 mg tablet,delayed 40 mg PO QAM 10/09/18 01/27/22 History release paroxetine HCl 40 mg tablet 40 mg PO QAM 10/09/18 01/27/22 History potassium chloride 10 mEq 10 meq PO BIDM 10/09/18 01/27/22 History tablet,extended release(part/cryst) ropinirole 0.25 mg tablet 0.25 mg PO HS 10/09/18 01/27/22 History sucralfate 1 gram tablet 1 g PO Q6H 10/09/18 01/27/22 History tramadol 50 mg tablet 50 mg PO Q6H PRN 10/09/18 01/27/22 History umeclidinium 62.5 mcg-vilanterol 1 puff INHALATION DAILY 10/09/18 01/27/22 History 25 mcg/actuation powdr for inhalation aspirin 81 mg capsule 81 mg PO QAM 01/27/22 01/27/22 History benzonatate 100 mg capsule 100 mg PO BID PRN 01/27/22 01/27/22 History guaifenesin 600 mg tablet, 600 mg PO BID PRN 01/27/22 01/27/22 History extended release 12 hr (Mucinex) Past Med/Surg History Medical History (Updated 01/28/22 @ 07:56 by Jose Reid MD) COPD (chronic obstructive pulmonary disease) Diabetes Social History Smoking Status: Current every day smoker Second Hand Exposure: No; Do You Dip or Chew Tobacco: No; Tobacco Cessation Education Requested by Patient: No Hx Alcohol Use: No Hx Substance Use: No Preferred Language: Guyanese Communication Ability: Effective Senior Solutions Engineer Required: No Beliefs That Will Affect Care: None Current Living Situation: Alone Other Information That Helps Us Care for You: No Feels Safe at Home: Yes Safety Concerns: Feels Safe At This Time Assistive Devices: Nebulizer and Oxygen - at Night Review of Systems Review of Systems: As per HPI, all other systems reviewed and negative Physical Exam Physical Exam: GENERAL: Slightly uncomfortable, tremulous, no respiratory distress SKIN: Normal color, warm HEENT: pink palpebral conjunctivae, no ptosis, dry buccal mucosa, nasal cannula in place NECK : Supple, no tenderness CHEST : Decreased breath sounds, expiratory wheezes, no tenderness HEART : RRR, no obvious murmurs ABDOMEN: Some distention, nontender EXTREMITIES : No LE swelling/tenderness, no other conspicuous deformities noted NEUROLOGIC : Coherent, no facial asymmetry, tremulous, no other gross focality Results & Data Results & Data ([facility]) Vital Signs (Past 12 Hours) Vital Signs Temp Pulse Pulse Resp BP BP Pulse Ox 01/27/22 20:30 87 22 117/67 94 01/27/22 18:00 24 91 01/27/22 17:50 91 H 15 86 L 01/27/22 17:40 93 H 19 94 01/27/22 17:30 103 H 20 96 01/27/22 17:20 89 18 90 01/27/22 17:11 86 26 H 89 L 01/27/22 17:10 121/68 01/27/22 17:07 36.5 C 95 H 24 121/68 90 Laboratory Results Laboratory Results WBC 11.39 K/uL (4.8-10.8) H 01/27/22 17:14 RBC 4.43 M/uL (4.2-5.4) 01/27/22 17:14 Hgb 14.1 g/dL (12.0-16.0) 01/27/22 17:14 Hct 42.3 % (37-47) 01/27/22 17:14 MCV 95.5 fL (80-100) 01/27/22 17:14 MCH 31.8 pg (25-34) 01/27/22 17:14 MCHC 33.3 g/dL (32-36) 01/27/22 17:14 RDW Std Deviation 46.4 fL (36.4-46.3) H 01/27/22 17:14 RDW Coeff of Scar 13.3 % (11.5-14.5) 01/27/22 17:14 Plt Count 394 K/uL (130-400) 01/27/22 17:14 MPV 10.3 fL (7.4-10.4) 01/27/22 17:14 Immature Gran % (Auto) 0.2 % 01/27/22 17:14 Neut % (Auto) 51.0 % 01/27/22 17:14 Lymph % (Auto) 36.3 % 01/27/22 17:14 Bulloch % (Auto) 9.0 % 01/27/22 17:14 Eos % (Auto) 3.2 % 01/27/22 17:14 Baso % (Auto) 0.3 % 01/27/22 17:14 Neut # (Auto) 5.82 K/uL (1.4-6.5) 01/27/22 17:14 Lymph # (Auto) 4.13 K/uL (1.2-3.4) H 01/27/22 17:14 Bulloch # (Auto) 1.02 K/uL (0.11-0.59) H 01/27/22 17:14 Eos # (Auto) 0.37 K/uL (0-0.5) 01/27/22 17:14 Baso # (Auto) 0.03 K/uL (0-0.2) 01/27/22 17:14 Immature Gran # (Auto) 0.02 K/uL (0.00-0.02) 01/27/22 17:14 APTT 26.8 Seconds (21.0-31.0) 01/27/22 17:14 PTT Ratio 1.0 01/27/22 17:14 Sodium 140 mmol/L (136-145) 01/27/22 17:14 Potassium 3.9 mmol/L (3.5-5.1) 01/27/22 17:14 Chloride 109 mmol/L (98-107) H 01/27/22 17:14 Carbon Dioxide 25 mmol/L (21-32) 01/27/22 17:14 Anion Gap 6 (3-11) 01/27/22 17:14 BUN 18 mg/dl (6-23) 01/27/22 17:14 Creatinine 1.22 mg/dl (0.6-1.2) H 01/27/22 17:14 Est Cr Clr Drug Dosing 47.6 ml/min 01/27/22 17:14 Est GFR ( Amer) 52.0 ml/min 01/27/22 17:14 Est GFR (Non-Af Amer) 44.8 ml/min 01/27/22 17:14 BUN/Creatinine Ratio 14.8 (10-20) 01/27/22 17:14 Glucose 115 mg/dl (70-99(Fasting)) H 01/27/22 17:14 Lactate 1.7 mmol/L (0.4-2.0) 01/27/22 20:30 Calcium 9.2 mg/dl (8.5-10.1) 01/27/22 17:14 Magnesium 1.8 mg/dl (1.7-2.4) 01/27/22 17:14 Total Bilirubin 0.5 mg/dl (0.2-1.0) 01/27/22 17:14 AST 16 U/L (13-39) 01/27/22 17:14 ALT 15 U/L (7-52) 01/27/22 17:14 Alkaline Phosphatase 95 U/L (34-104) 01/27/22 17:14 Troponin I High Sens 4.7 pg/ml (0-14) 01/27/22 17:14 Total Protein 7.4 gm/dl (6.0-8.3) 01/27/22 17:14 Albumin 3.8 gm/dl (3.4-5.0) 01/27/22 17:14 Globulin 3.6 gm/dl (2.5-4.0) 01/27/22 17:14 Albumin/Globulin Ratio 1.1 (0.9-2) 01/27/22 17:14 Lipase 31 U/L (11-82) 01/27/22 17:14 Procalcitonin < 0.05 ng/ml (0-0.5) 01/27/22 17:14 SARS-CoV-2, RNA, NAAT NEGATIVE (NEGATIVE) 01/27/22 Unknown Impressions Chest X-Ray 01/27/22 17:07 XR chest 1V portable HISTORY: 71 years-old Female Chest Pain acute atypical chest pain COMPARISON: Chest radiograph 10/08/2018 TECHNIQUE: Portable AP view of the chest FINDINGS: The cardiomediastinal and hilar silhouettes are within normal limits. Atherosclerosis of the thoracic aorta. No pneumothorax, pleural effusion, airspace consolidation or overt pulmonary edema. Degenerative changes of the shoulders and spine. Mild chronic interstitial coarsening of the lung bases. IMPRESSION: No acute process. ACT 112: Negative or not required by law. The above report was generated using voice recognition software. It may contain grammatical, syntax or spelling errors. Electronically signed by: Negro Rodarte M.D. 01/27/2022 5:26 PM Diagnostic Findings EKG as per my interpretation :Rate 85, NSR, LAD, LAFB, no ischemia, low voltage
[2022-01-27] MEDS ORDERED: ACETAMINOPHEN 325 MG TAB PO PRN (23:00)
[2022-01-27] MEDS ORDERED: CARBOHYDRATES FOR HYPOGLYCEMIA PO PRN (23:00)
[2022-01-27] MEDS ORDERED: guaiFENesin 600 MG TABCR PO PRN (23:00)
[2022-01-27] MEDS ORDERED: traMADol HCL 50 MG TABLET PO PRN (23:00)
[2022-01-27] MEDS ORDERED: GLUCOSE 10 TABS/TUBE PO PRN (23:00)
[2022-01-27] MEDS ORDERED: GLUCAGON FOR INJ 1 MG VIAL SQ PRN (23:00)
[2022-01-27] MEDS ORDERED: GLUCOSE 40% GEL 15 GM TUBE PO PRN (23:00)
[2022-01-27] MEDS ORDERED: BENZONATATE 100 MG CAPSULE PO PRN (23:00)
[2022-01-27] MEDS ORDERED: DEXTROSE 50% 50 ML SYRINGE IV PRN (23:00)
[2022-01-27] MEDS ORDERED: INSULIN GLARGINE SOLOSTAR 100 UNITS/ML 3 ML PEN SC SCH (23:55)
[2022-01-28] MEDS ORDERED: LEVALBUTEROL HCL 1.25 MG/3 ML NEB ONE ×2 (00:08→12:57)
[2022-01-28] MEDS: IPRATROPIUM BROMIDE NEB SOLN 0.02% 2.5 ML VIAL INH SCH ×3 (00:11→13:11)
[2022-01-28] MEDS: LEVALBUTEROL 1.25MG/0.5ML NEB INH SCH ×3 (00:12→13:11)
[2022-01-28] MEDS ORDERED: GABAPENTIN 300 MG CAP PO SCH (00:15)
[2022-01-28] MEDS: MAGNESIUM SULFATE / D5W 1 GM/100 ML BAG IV SCH ×2 (00:44→02:33)
[2022-01-28] MEDS: INSULIN ASPART PER UNIT SC SCH ×3 (00:48→12:50)
[2022-01-28] MEDS: SUCRALFATE 1 GM TAB PO SCH ×3 (00:51→12:43)
[2022-01-28] MEDS: HEPARIN SOD 5,000 UNIT/0.5 ML VIAL SQ SCH ×3 (00:52→17:07)
[2022-01-28] MEDS ORDERED: XOPENEX/ATROVENT 1.25mg/0.5MG NEB COMBO NEB SCH (01:00)
[2022-01-28] MEDS ORDERED: LEVOTHYROXINE SODIUM 75 MCG TABLET PO SCH (06:30)
[2022-01-28 07:13] LABS: Hematocrit (blood only) 41.4 % (37-47); Hemoglobin 13.5 g/dL (12.0-16.0); Immature Granulocytes # (auto) 0.02 K/uL (0.00-0.02); Immature Granulocytes % (auto) 0.2 %; Lymphocytes % (auto) 14.5 %; Mean Corpuscular Hgb Conc 32.6 g/dL (32-36); Mean Platelet Volume 10.5 fL (7.4-10.4); Monocytes # (auto) 0.15 K/uL (0.11-0.59); Monocytes % (auto) 1.5 %; Neutrophils # (auto) 8.66 K/uL (1.4-6.5); Neutrophils % (auto) 83.8 %; Platelet Count 378 K/uL (130-400); RDW Coefficient of Variation 13.3 % (11.5-14.5); RDW Standard Deviation 46.4 fL (36.4-46.3); Red Blood Count 4.36 M/uL (4.2-5.4); White Blood Count 10.33 K/uL (4.8-10.8)
[2022-01-28 07:47] LABS: BUN Creatinine Ratio 17.1 (10-20); Calcium 9.3 mg/dl (8.5-10.1); Creatinine Clr Calc Pharmacy 51.3 ml/min; Est GFR (African American) 58.3 ml/min; Est GFR (Non-African American) 50.3 ml/min; Potassium 4.3 mmol/L (3.5-5.1)
[2022-01-28] MEDS: GABAPENTIN 300 MG CAP PO SCH ×2 (07:54→15:44)
[2022-01-28] MEDS ORDERED: UMECLIDINIUM/VILANTEROL 62.5/25MCG 7 PUFFS/INHALER INH SCH (09:00)
[2022-01-28] MEDS ORDERED: PARoxetine HCL 20 MG TAB PO SCH (09:00)
[2022-01-28] MEDS ORDERED: predniSONE 20 MG TAB PO SCH (09:00)
[2022-01-28] MEDS ORDERED: ASPIRIN 81 MG ECTAB PO SCH (09:00)
[2022-01-28] MEDS ORDERED: AZELASTINE HCL 0.1% NASAL 200 SPRAYS/27,400 MCG BTL SCH (09:00)
[2022-01-28] MEDS ORDERED: lisinopril 10 MG TAB PO SCH (09:00)
[2022-01-28] MEDS ORDERED: PANTOprazole 40 MG TAB PO SCH (09:00)
[2022-01-28] MEDS ORDERED: FUROSEMIDE 20 MG TAB PO SCH (09:00)
[2022-01-28] MEDS ORDERED: ATENOLOL 25 MG TABLET PO SCH (09:00)
[2022-01-28] MEDS ORDERED: FLUTICASONE FUROATE 100MCG 14 PUFFS/INHALER INH SCH (09:00)
--- NOTE | 2022-01-28 15:34 | Discharge Summary ---
Date of Service January 28, 2022 Admission HPI Per Admitting Provider History obtained from patient and records. Medical history is significant for chronic respiratory failure secondary to COPD on home O2 at night, chronic systolic/diastolic heart failure (EF of 60-65% TTE 2019). HTN, DM 2 on oral meds, CRI baseline creatinine 1.4, hypothyroidism, ongoing tobacco abuse. Last confinement September 2018 for multifactorial syncope. 2 days history of sinus congestion followed by cough productive of clear sputum. Worsening shortness of breath. No chest pain. No fever, no chills. No weight gain. No known recent sick contacts. Patient completed COVID-19 vaccination. EMS summoned to patient's home today. Given neb treatment and Solu-Medrol on route to the ER. Patient feeling much better upon arrival at the ER. Medical Historyas above Surgical History : BTL, sinus surgery, nasal septum repair, wrist surgery cataract surgery Family History : Heart disease Personal/Social history : Half pack daily, no chronic EtOH intake, disabled Admission Exam Per Admitting Provider GENERAL: Slightly uncomfortable, tremulous, no respiratory distress SKIN: Normal color, warm HEENT: pink palpebral conjunctivae, no ptosis, dry buccal mucosa, nasal cannula in place NECK : Supple, no tenderness CHEST : Decreased breath sounds, expiratory wheezes, no tenderness HEART : RRR, no obvious murmurs ABDOMEN: Some distention, nontender EXTREMITIES : No LE swelling/tenderness, no other conspicuous deformities noted NEUROLOGIC : Coherent, no facial asymmetry, tremulous, no other gross focality Principal Diagnosis COPD exacerbation Discharge Exam Constitutional + well hydrated; no acute distress Eyes PERRL, conjunctivae normal, anicteric sclerae ENMT external ear and nose normal, oropharynx normal Respiratory normal respiratory effort; no respiratory distress Good air entry. Scattered wheeze Cardiovascular Rate/Rhythm: regular rate and regular rhythm S1 S2 Gastrointestinal (Abdomen) normal bowel sounds, soft, nontender, no hepatosplenomegaly Musculoskeletal no cyanosis or clubbing, extremities motor strength 5/5 Neurologic PERRL, EOMI, accommodation nl, no face palsy, no dysarthria Psychiatric A+Ox3, euthymic affect Discharge Data Allergies Allergy/AdvReac Type Severity Reaction Status Date / Time adhesive Allergy Intermediate RASH Verified 01/27/22 18:41 Quinolones Allergy Intermediate LEVAQUIN Verified 01/27/22 18:41 codeine AdvReac Severe "BECAME Verified 01/27/22 18:41 ADDICTED TO MED" PREFERS NOT TO TAKE IF POSSIBLE. morphine AdvReac Severe ADDICTION-PREFERS Verified 01/27/22 18:41 NOT TO TAKE IF POSSIBLE. 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 Patient to continue bedtime oxygen use at home Chronic diastolic heart failure EF 55%, euvolemic HTN, stable Hypothyroidism, euthyroid as of recent outpatient TSH DM 2 on oral meds, well controlled as of recent outpatient hemoglobin A1c of 6.2 last November 2021 ongoing tobacco abuse Total Time Total Time Spent Total Time Spent (In Minutes): 35 Total Time Includes: Examination of the Patient, Discharge Planning and Medication Reconciliation Discharge Plan Discharge Items Patient Disposition: Home - Self-Care Reason For Visit: Cough and shortness of breath Discharge Diagnosis: COPD exacerbation Activity: Resume your previous activity Non-emergency contact: Primary Care Provider and [place]il [employer] Call non-emergency contact if: you have any medication questions and your symptoms worsen Follow-up/Referrals: Magalie Vinson MD [Primary Care Provider] - (Please call for appointment within 1 week) Diet: Carb Consistent or DM2 and Heart Healthy Addtl Attending Provider Instructions: Mrs Patricio. You came to the hospital complaining of increased cough and shortness of breath. You were started on treatment for COPD exacerbation. Your symptoms improved significantly and you requested discharge. You are being discharged on 4 more days of prednisone starting tomorrow. Please ensure you flower buncher or picker all your medicines that you reported were ready for flower buncher or picker at your Pharmacy. Please ensure follow up with your primary doctor and pulmonology. Please continue to use your oxygen only at bedtime It was a pleasure taking care of you. Pending Studies at Discharge: No Stand-Alone Forms: My Sentric Music, Smoking Cessation Medications and DC Order Prescriptions: New prednisone 20 mg tablet 40 mg PO DAILY 4 Days Qty: 8 RF: 0 Continued atenolol 25 mg tablet 25 mg PO QAM RF: 0 cholecalciferol (vitamin D3) 50,000 unit Tablet 50,000 unit PO WK RF: 0 potassium chloride 10 mEq tablet,ER particles/crystals 10 meq PO BIDM RF: 0 furosemide 20 mg tablet 20 mg PO DAILY RF: 0 montelukast 10 mg tablet 10 mg PO HS RF: 0 sucralfate 1 gram Tablet 1 g PO Q6H RF: 0 levothyroxine 75 mcg Tablet 75 mcg PO QAM RF: 0 lisinopril 10 mg Tablet 10 mg PO DAILY RF: 0 atorvastatin 10 mg Tablet 10 mg PO HS RF: 0 gabapentin 300 mg Capsule 300 mg PO USEASDIRECTD RF: 0 ropinirole 0.25 mg Tablet 0.25 mg PO HS RF: 0 ipratropium bromide 0.02 % Solution 2.5 ml continuous nebulization Q4H PRN (Reason: Shortness Of Breath Or Wheezing) RF: 0 clotrimazole 10 mg Melony 10 mg Mucous Membrane 5XD RF: 0 tramadol 50 mg Tablet 50 mg PO Q6H PRN (Reason: Pain) RF: 0 azelastine 137 mcg (0.1 %) aerosol,spray 2 spray Intranasal BID RF: 0 nitroglycerin [Nitrostat] 0.4 mg Tablet, Sublingual 0.4 mg Sublingual UD PRN (Reason: Chest Pain) RF: 0 pantoprazole 40 mg Tablet,Delayed Release (Dr/Ec) 40 mg PO QAM RF: 0 paroxetine HCl 40 mg tablet 40 mg PO QAM RF: 0 levalbuterol HCl 1.25 mg/3 mL Solution For Nebulization 1.25 mg INHALATION QID PRN (Reason: Shortness Of Breath Or Wheezing) RF: 0 levocetirizine 5 mg Tablet 5 mg PO PM RF: 0 calcium carbonate 500 mg calcium (1,250 mg) Tablet,Chewable 500 mg PO 5XD PRN (Reason: Gi Upset) RF: 0 benzonatate 100 mg Capsule 100 mg PO BID PRN (Reason: Cough) RF: 0 guaifenesin [Mucinex] 600 mg Tablet Extended Release 12hr 600 mg PO BID PRN (Reason: Cough) RF: 0 aspirin 81 mg Capsule 81 mg PO QAM RF: 0 Trelegy Ellipta 100-62.5-25 mcg blister with device 1 inh INHALATION DAILY RF: 0 Discharge Orders: Discharge Order (Routine); Ordered 01/28/22 Ordered By: Candi Ogden Admission Data Admit Date/Time: 01/27/22 21:27 Attending Provider: Candi Ogden I. Admit Provider: Jose Reid Primary Care Provider: Magalie Vinson Other Providers: Jose Reid Other Interventions: Discharge Summary Assessment (RN) Last Done: 01/28/22 17:08
[2022-01-28] MEDS ORDERED: rOPINIRole HCL 0.25 MG TABLET PO SCH (21:00)
[2022-01-28] MEDS ORDERED: ATORVASTATIN 10 MG TAB PO SCH (21:00)
[2022-01-28] MEDS ORDERED: AMITRIPTYLINE HCL 25 MG TAB PO SCH (21:00)
[2022-01-28] MEDS ORDERED: CETIRIZINE HCL 10 MG TABLET PO SCH (21:00)
[2022-01-28] MEDS ORDERED: MONTELUKAST SODIUM 10 MG TABLET PO SCH (21:00)
--- NOTE | 2022-01-28 22:05 | Electrocardiogram Report ---
Test Reason : Blood Pressure : / mmHG Vent. Rate : 086 BPM Atrial Rate : 086 BPM P-R Int : 128 ms QRS Dur : 084 ms QT Int : 384 ms P-R-T Axes : 077 -31 062 degrees QTc Int : 459 ms Normal sinus rhythm Left axis deviation Abnormal ECG When compared with ECG of 10-OCT-2018 10:02, QRS axis Shifted left Confirmed by Jefferson Baxter ([id number]) on 01/28/2022 10:04:38 PM Referred By: REFERRED SELF Confirmed By:Jefferson Baxter
== END 2022-01-28 17:36 | disposition home or self-care (01) | DRG 191 ==
LOC: ED 17:01 → 3N 21:27

== ENCOUNTER 2024-05-16 08:17 | Inpatient (IN) ==
[2024-05-16 09:15] LABS: iSTAT Creatinine 1.3 mg/dl (0.6-1.3); iSTAT Hemoglobin 12.9 g/dl (12.0-16.0); iSTAT Ionized Calcium 1.15 mmol/l (1.12-1.32); iSTAT Potassium 3.8 mmol/L (3.3-5.0)
[2024-05-16 09:20] LABS: Basophils # (auto) 0.06 K/uL (0.00-0.20); Basophils % (auto) 0.4 %; Eosinophils # (auto) 0.37 K/uL (0.00-0.50); Eosinophils % (auto) 2.7 %; Hematocrit (blood only) 43.7 % (37.0-47.0); Immature Granulocytes # (auto) 0.24 K/uL (0.01-0.20); Immature Granulocytes % (auto) 1.7 %; Lymphocytes # (auto) 3.19 K/uL (1.20-3.40); Mean Corpuscular Hemoglobin 31.3 pg (25.0-34.0); Mean Corpuscular Volume 97.5 fL (80.0-100.0); Mean Platelet Volume 10.1 fL (9.4-12.4); Monocytes # (auto) 1.45 K/uL (0.11-0.59); Monocytes % (auto) 10.5 %; Neutrophils # (auto) 8.54 K/uL (1.40-6.50); Neutrophils % (auto) 61.7 %; Platelet Count 347 K/uL (130-400); RDW Coefficient of Variation 13.3 % (11.5-14.5); RDW Standard Deviation 47.9 fL (36.4-46.3); Red Blood Count 4.48 M/uL (4.20-5.40); White Blood Count 13.85 K/ul (4.8-10.8)
--- NOTE | 2024-05-16 09:24 | XRay Report ---
XR chest 1V portable HISTORY: 73 years-old Female neuro deficit, acute stroke suspected COMPARISON: 03/23/2023 TECHNIQUE: AP view the chest FINDINGS: Cardiomediastinal and hilar silhouettes are within normal limits. Atherosclerosis of the aorta. No pn eumothorax, pleural effusion or airspace consolidation. The bones appear grossly intact. Left-sided r otator cuff calcific tendinosis. Healed chronic left-sided rib fractures. IMPRESSION: No acute process. ACT 112: Negative or not required by law. The above report was generated using voice recognition software. It may contain grammatical, syntax o r spelling errors. Electronically signed by: Negro Rodarte M.D. 05/16/2024 9:23 AM
--- NOTE | 2024-05-16 09:24 | XRay Report ---
XR foot LT min 3V routine HISTORY: 73 years-old Female fall, lateral pain acute pain of the left foot status post fall COMPARISON: 06/07/2019 TECHNIQUE: 3 views of the left foot FINDINGS: Demineralized appearance of the bones with mostly mild multifocal osteoarthritis. No acute fracture, dislocation or osseous erosion. Small calcaneal enthesophytes. Os peroneum. Possible foreign body wit hin the plantar and lateral tissues, 2 mm on the oblique and lateral views. IMPRESSION: 1. No acute fracture or dislocation. 2. Possible punctate foreign body. ACT 112: Negative or not required by law. The above report was generated using voice recognition software. It may contain grammatical, syntax o r spelling errors. Electronically signed by: Negro Rodarte M.D. 05/16/2024 9:22 AM
[2024-05-16 09:36] LABS: Albumin Level 3.8 gm/dl (3.4-5.0); BUN Creatinine Ratio 12.2 (10-20); Bilirubin,Total 0.4 mg/dl (0.2-1.0); Calcium 9.2 mg/dl (8.6-10.3); Creatinine Clr Calc Pharmacy 41.6 ml/min; Est GFR (Non-African American) 40.6 ml/min; Globulin 3.7 gm/dl (2.5-4.0); Magnesium 1.7 mg/dl (1.7-2.4); Potassium 3.8 mmol/L (3.5-5.1); Total Protein 7.5 gm/dl (6.0-8.3)
[2024-05-16] MEDS: SODIUM CHLORIDE 0.9% 1,000 ML IV SCH (09:37)
[2024-05-16] MEDS: OPTIRAY 320 125ml IV ONE ×2 (09:40→13:47)
[2024-05-16 09:41] LABS: Troponin I High Sensitivity 5.1 pg/ml (0-14)
--- NOTE | 2024-05-16 09:51 | CT Scan Report ---
CT ANGIOGRAM OF THE BRAIN CLINICAL HISTORY: Neurological deficit. Stroke like symptoms. COMPARISON STUDY: Unenhanced CT of the brain performed concurrently on 05/16/2024. MR angiography of the brain dated 09/16/2013. TECHNIQUE: Following the IV administration of 120 cc of Optiray 320, CT angiogram of the brain was pe rformed from the skull base to the vertex. Images are reviewed in the axial, sagittal, and coronal pl anes. 3-D MIPS images are created and assessed. IV contrast was administered without complication. A dose lowering technique was utilized adhering to the principles of ALARA. FINDINGS: Brain parenchyma: There is age-related involutional change noting minimal microangiopathic disease. T here is no evidence of hemorrhage, mass effect, or acute territorial ischemia noting angiographic pha se technique. There is no evidence of enhancing mass lesion on the angiogram phase images. No extra-a xial fluid collection is seen. Senior-white matter differentiation is preserved. Ventricles, sulci, and cisterns: Prominent secondary to involutional change. CT angiogram of the brain: There is atherosclerotic calcification of the cavernous carotid arteries. The internal carotid arteries are widely patent, as are the anterior and middle cerebral arteries. Th e vertebrobasilar system and posterior cerebral arteries are widely patent. The vertebral arteries ar e codominant. There is a right posterior communicating artery. There is no aneurysm, high-grade steno sis, or focal vessel cutoff identified throughout the intracranial circulation. Dural sinuses: Clear as visualized. Orbits: The bony orbits are intact. The orbital contents are normal as visualized noting bilateral oc ular lens implants. Sinuses and mastoids: There is evidence of previous paranasal sinus surgery. There is mild mucosal th ickening in the left maxillary antrum. Trace mucosal thickening is seen within the sphenoid sinuses, frontal sinuses, and the ethmoid cavity. There are small mastoid effusions, left larger than right. Calvarium: Unremarkable. IMPRESSION: 1. There is no evidence of hemorrhage, mass effect, or acute territorial ischemia noting angiographic phase technique. 2. Unremarkable CT angiogram of the brain. ACT 112: Negative or not required by law. Electronically signed by: Rogelio Nugent M.D. 05/16/2024 9:50 AM
--- NOTE | 2024-05-16 10:06 | CT Scan Report ---
CT head/brain wo con CLINICAL HISTORY: 73 years-old Female with neuro deficit, acute stroke suspected. Acute stroke like symptoms TECHNIQUE: Multiple axial CT images of the head were obtained without contrast. A dose lowering tech nique was utilized adhering to the principles of ALARA. COMPARISON: CTA head of same day, head CT 10/09/2018 FINDINGS: No acute intracranial hemorrhage, midline shift, intracranial mass, hydrocephalus, territorial ischem ia or abnormal extra-axial collection. Involutional changes with suggestion of chronic microvascular ischemic disease. Cerebral vascular calcifications. The calvarium is intact. Small left mastoid effusion. The right mastoid air cells are clear. Prior p artial ethmoidectomy. Mild mucosal thickening with small air-fluid level of the left maxillary sinus. Prior bilateral lens repair. IMPRESSION: No acute intracranial abnormality. ACT 112: Negative or not required by law. The above report was generated using voice recognition software. It may contain grammatical, syntax o r spelling errors. Electronically signed by: Negro Rodarte M.D. 05/16/2024 10:05 AM
--- NOTE | 2024-05-16 10:08 | CT Scan Report ---
CT angio neck with con CLINICAL HISTORY: 73 years-old Female with neuro deficit, acute stroke suspected. Acute stroke sym ptoms COMPARISON STUDY: CTA of head of same day TECHNIQUE: Following the IV administration of 1 20 mL of Optiray, CT angiogram of the neck was perfor med from the aortic arch to the skull base. Images are reviewed in the axial, sagittal, and coronal p lanes. 3-D MIPS images are created and assessed. IV contrast was administered without complication. A ll measurements were calculated based on NASCET criteria. A dose lowering technique was utilized adh ering to the principles of ALARA. CT DOSE: 1053.29 mGy.cm FINDINGS: Moderate atherosclerosis of the thoracic aortic arch. Patent common and internal carotid arteries wit hout significant atherosclerosis. The vertebral arteries are codominant and widely patent. Mild mucos al thickening of the paranasal sinuses. Small left mastoid effusion. Multilevel degenerative changes of the cervical spine. Pulmonary emphysema. The lung apices appear generally clear. No acute fracture identified. IMPRESSION:Unremarkable CTA of the neck. ACT 112: Negative or not required by law. The above report was generated using voice recognition software. It may contain grammatical, syntax o r spelling errors. Electronically signed by: Negro Rodarte M.D. 05/16/2024 10:07 AM
[2024-05-16 10:16] LABS: Adenovirus PCR Not Detected (NotDetected); Bordetella parapertussis PCR Not Detected (NotDetected); Bordetella pertussis PCR Not Detected (NotDetected); Chlamydia pneumoniae PCR Not Detected (NotDetected); Coronavirus 229E PCR Not Detected (NotDetected); Coronavirus CoV-2 (COVID19)PCR Not Detected (NotDetected); Coronavirus HKU1 PCR Not Detected (NotDetected); Coronavirus NL63 PCR Not Detected (NotDetected); Coronavirus OC43PCR Not Detected (NotDetected); Human Metapneumovirus PCR Not Detected (NotDetected); Influenza A PCR Not Detected (NotDetected); Influenza B PCR Not Detected (NotDetected); Mycoplasma pneumoniae PCR Not Detected (NotDetected); Parainfluenza Virus 1 PCR Not Detected (NotDetected); Parainfluenza Virus 2 PCR Not Detected (NotDetected); Parainfluenza Virus 3 PCR Not Detected (NotDetected); Parainfluenza Virus 4 PCR Not Detected (NotDetected); Respiratory Syncytial VirusPCR Not Detected (NotDetected); Rhinovirus/Enterovirus PCR Not Detected (NotDetected)
--- NOTE | 2024-05-16 10:33 | XRay Report ---
RIGHT KNEE 3 VIEWS CLINICAL HISTORY: Fall. Right knee pain. FINDINGS: AP, crosstable lateral, and sunrise views of the right knee are compared to study dated 07/25/2009. The skeletal structures are osteopenic. No fracture is seen. The joint spaces are maintained. There are tiny marginal osteophytes and patellar enthesophytes. A joint effusion is noted. The overl alejandra soft tissues are normal as imaged. A calcified fabella is observed. IMPRESSION: Joint effusion with no acute bony abnormality identified. Electronically signed by: Rogelio Nugent M.D. 05/16/2024 10:32 AM
--- NOTE | 2024-05-16 10:59 | Ultrasound Report ---
US arterial duplex LE RT CLINICAL HISTORY: leg pain, weakness, cool, diminished pulse TECHNIQUE: Real-time grayscale and color and spectral Doppler ultrasound imaging of the right lower e xtremity arteries was performed. Measurements calculated based on NASCET criteria. COMPARISON: None available at the time of this dictation. FINDINGS/IMPRESSION: No elevated velocities are seen to suggest hemodynamically significant stenosis. Triphasic waveforms are seen to the level of the femoral artery with biphasic waveforms at the popliteal artery and below . ACT 112: Negative or not required by law. Electronically signed by: To Barney M.D. 05/16/2024 10:58 AM
[2024-05-16] MEDS: ASPIRIN CHEW 324 MG PO STA (11:03)
[2024-05-16] MEDS: ACETAMINOPHEN 1,000 MG/100 ML VIAL IV STA (11:14)
--- NOTE | 2024-05-16 11:23 | History & Physical Report ---
Date of Service May 16, 2024 Assessment & Plan (1) Syncope and collapse: Plan Danni Patricio is a 73y/o F with PMHx of DM type II, CKD stage III, hypothyroidism, HLD, COPD, chronic respiratory failure with hypoxia, systolic heart failure due to idiopathic cardiomyopathy, HTN, vitamin D deficiency, GERD without esophagitis, osteoarthritis, macular degeneration, anxiety/depression, tobacco use disorder and other problems listed below who presented to the ED for evaluation after experiencing a syncopal event. Syncope & Collapse: Patient w/ syncopal event this morning as per HPI. Head CT negative. No focal deficits. Head & neck CTA negative. Brain MRI, echo pending. Neuro consult pending. PT/OT evals. Orthostatic vitals pending. LLE Wounds: Sustained from patient's previous fall on Wednesday as per HPI. Wounds w/ surrounding erythema and warmth to touch on exam, WBC 13k. UA still pending. MRSA swab pending. Wound cx pending. Will start her on IV Rocephin for now. Wound care consult pending. R Knee Effusion, L Foot Pain: Sustained from patient's previous fall on Wednesday as per HPI. R knee joint effusion noted on R knee XR, no fx's were noted. Ortho consult pending. L foot XR w/ no acute fx or dislocation, but does note a possible punctate foreign body. Podiatry consult pending. C/F Peripheral Arterial Disease (PAD): RLE cool to touch on exam. RLE arterial duplex US w/o any significant stenosis. CTA abd aorta w/ runoff pending for further evaluation - follow closely. May need vascular surgery consult. HTN: Resume home meds tomorrow. Continuous BP monitoring in place. COPD, Chronic Respiratory Failure w/ Hypoxia: CXR & RVP both negative. Notable expiratory wheezing heard on exam. Scheduled Duonebs ordered. Uses 2L O2 HS at baseline - ordered. Continue home meds. 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 SSI regimen while inpatient. BSG checks ACHS. Check Hgb A1c in AM - follow. Other Chronic Medical Conditions: GERD, hypothyroidism, osteoarthritis, HLD, seasonal allergies, anxiety/depression --> Can continue home meds for these specific conditions. DVT Prophylaxis: SQ Heparin Code Status: FULL CODE PCP: Franca Lilly MD Disposition: Admit to Med/Surg + Telemetry Patient seen in collaboration with Dr. Haley. Please see addendum. I spent a total of 60 minutes coordinating, documenting, and providing care for this patient excluding time spent in the performance of separately billed ser vices. This included personally reviewing all current laboratories and imaging studies, medical reconciliation, outpatient chart review and discussion with specialists. This chart was completed in part utilizing Speech Voice Recognition Software. Grammatical errors, random word insertions, pronoun errors, and incomplete sentences are an occasional consequence of this system due to software limita tions, ambient noise, and hardware issues. Any formal questions or concerns about the content, text, or information contained within the body of this dictation should be directly addressed to the provider for clarification. History of Present Illness Chief Complaint: Syncopal Event Primary Care Provider: Franca Lilly MD Danni Patricio is a 73y/o F with PMHx of DM type II, CKD stage III, hypothyroidism, HLD, COPD, chronic respiratory failure with hypoxia, systolic heart failure due to idiopathic cardiomyopathy, HTN, vitamin D deficiency, GERD without esophagitis, osteoarthritis, macular degeneration, anxiety/depression, tobacco use disorder and other problems listed below who presented to the ED for evaluation after sustaining a syncopal event this morning. History obtained from patient and associated chart review. Patient reports that she was trying to get up out of bed this morning when her legs suddenly "gave out" and she fell to the floor. She states that she "blacked out" during this event. She does not remember if she hit her head or what she may of hit on the way down. She was able to slowly pull herself up onto a nearby couch but reports it was very difficult to get up off of the ground. A family member ended up driving her to the ED. She had a previous fall on Wednesday where she tripped over her dog and landed on her right knee. She did not hit her head during that fall however. She did sustain a cut to her left sanchez region during that fall though. She thinks she may of landed mostly on her left foot this morning - her left foot is very sore and she has some bruising on the lateral aspect as well. Denies any visual changes or lightheadedness/dizziness. No chest pain or SOB. No recent illnesses, but does mention she has chronic post-nasal drip and sinus congestion secondary to allergies. Denies any fevers, chills or body aches. Patients smokes ~0.5 pack/day currently. Allergies Allergy/AdvReac Type Severity Reaction Status Date / Time adhesive Allergy Intermediate RASH Verified 01/27/22 18:41 Quinolones Allergy Intermediate LEVAQUIN Verified 01/27/22 18:41 codeine AdvReac Severe "BECAME Verified 01/27/22 18:41 ADDICTED TO MED" PREFERS NOT TO TAKE IF POSSIBLE. morphine AdvReac Severe ADDICTION-PREFERS Verified 01/27/22 18:41 NOT TO TAKE IF POSSIBLE. linagliptin AdvReac Mild hypoglycemi Verified 01/27/22 18:41 a Home Medications Medication Instructions Recorded Confirmed Type atenolol 25 mg tablet 25 mg PO QAM 10/09/18 05/16/24 History azelastine 137 mcg (0.1 %) nasal 2 spray intranasal BID 10/09/18 05/16/24 History spray calcium carbonate 500 mg PO 5XD PRN Gi Upset 10/09/18 05/16/24 History cholecalciferol (vitamin D3) 1,250 50,000 unit PO WK 10/09/18 05/16/24 History mcg (50,000 unit) tablet clotrimazole 10 mg tyrell 10 mg mucous membrane 5XD PRN 10/09/18 05/16/24 History THRUSH furosemide 20 mg tablet 20 mg PO DAILY 10/09/18 05/16/24 History gabapentin 300 mg capsule 300 mg PO USEASDIRECTD 10/09/18 05/16/24 History ipratropium bromide 0.02 % 2.5 ml continuous nebulization Q4H 10/09/18 05/16/24 History solution for inhalation PRN Shortness Of Breath Or Wheezing levalbuterol HCl 1.25 mg/3 mL 1.25 mg inhalation QID PRN 10/09/18 05/16/24 History solution for nebulization Shortness Of Breath Or Wheezing levocetirizine 5 mg tablet 5 mg PO PM 10/09/18 05/16/24 History levothyroxine 75 mcg tablet 75 mcg PO QAM 10/09/18 05/16/24 History lisinopril 10 mg tablet 10 mg PO DAILY 10/09/18 05/16/24 History montelukast 10 mg tablet 10 mg PO HS 10/09/18 05/16/24 History nitroglycerin 0.4 mg sublingual 0.4 mg sublingual UD PRN Chest Pain 10/09/18 05/16/24 History tablet (Nitrostat) pantoprazole 40 mg tablet,delayed 40 mg PO QAM 10/09/18 05/16/24 History release paroxetine HCl 40 mg tablet 40 mg PO QAM 10/09/18 05/16/24 History potassium chloride 10 mEq 10 meq PO BIDM 10/09/18 05/16/24 History tablet,extended release(part/cryst) ropinirole 0.25 mg tablet 0.25 mg PO HS 10/09/18 05/16/24 History aspirin 81 mg capsule 81 mg PO QAM 01/27/22 05/16/24 History benzonatate 100 mg capsule 100 mg PO BID PRN Cough 01/27/22 05/16/24 History guaifenesin 600 mg tablet, 600 mg PO BID PRN Cough 01/27/22 05/16/24 History extended release 12 hr (Mucinex) albuterol sulfate 90 mcg/actuation 2 puff inhalation QID PRN 05/16/24 05/16/24 History aerosol inhaler SOB/Wheezing alendronate 70 mg tablet 70 mg PO QAM 05/16/24 05/16/24 History atorvastatin 40 mg tablet 40 mg PO HS 05/16/24 05/16/24 History fluticasone fur. 200 mcg-umeclid 1 inh inhalation DAILY 05/16/24 05/16/24 History 62.5 mcg-vilant 25 mcg inhalat.powder (Trelegy Ellipta) lidocaine 5 % topical patch 1 patch topical DAILY PRN Pain 05/16/24 05/16/24 History (Lidoderm) linagliptin 5 mg tablet (Tradjenta) 5 mg PO QAM 05/16/24 05/16/24 History Past Med/Surg History Problem List (Updated 05/16/24 @ 16:54 by Judith Monroe PA-C) Left ankle pain Hemarthrosis, right knee Right leg weakness (Acute) Acute pain of right knee (Acute) Fall (Acute) Sprain of left foot (Acute) Ambulatory dysfunction (Acute) Syncope and collapse COPD exacerbation Hypoxic (Acute) COPD (chronic obstructive pulmonary disease) (Acute) Dehydration Syncope (Acute) Acute hypotension (Acute) Laceration (Acute) Sepsis (Acute) COPD with acute exacerbation (Acute) Acute respiratory failure (Acute) COPD (chronic obstructive pulmonary disease) (Chronic) Migraine (Chronic) Anxiety (Chronic) Depression (Chronic) H/O tubal ligation (Chronic) Tracheostomy obstruction (Acute) Medical History (Updated 05/16/24 @ 16:54 by Judith Monroe PA-C) COPD (chronic obstructive pulmonary disease) Diabetes Social History Smoking Status: Current every day smoker Tobacco Type: Cigarettes Second Hand Exposure: Yes; Do You Dip or Chew Tobacco: No; Tobacco Cessation Education Requested by Patient: No Hx Alcohol Use: No Hx Substance Use: No Preferred Language: Estonian Communication Ability: Effective Materials Planner/Production 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 Physical Exam Physical Exam: General: WD/WN, vitals as above, NAD, laying back in bed, pleasant, conversing appropriately. A+Ox3, euthymic affect. HEENT: Normocephalic, atraumatic. PERRL, conjunctivae normal, anicteric sclerae, oropharynx normal. Respiratory: Normal respiratory effort, wheezing heard in all lung whaley. No accessory muscle use or increased work of breathing. Cardiovascular: Regular rate, rhythm, no murmur, normal peripheral pulses, no BLE edema. Vessels: No JVD. Abdomen/GI: Normal bowel sounds, soft, nontender, no hepatosplenomegaly. Extremities/Musculoskeletal: No cyanosis or clubbing, BLE motor strength slightly decreased, bruising over lateral aspect of L foot. Neurologic: EOMI, no focal deficits, CN's II-XI not formally tested but appear grossly intact bilaterally. Skin: No rashes, normal color. R knee is swollen, 2 wounds present on L anterior sanchez region with surrounding erythema and warmth. Results & Data Results & Data Vital Signs (Past 12 Hours) Vital Signs Temp Pulse Resp BP Pulse Ox O2 Del Method 05/16/24 10:06 74 22 94 05/16/24 10:00 110/61 05/16/24 09:57 74 24 94 05/16/24 09:39 79 24 93 05/16/24 09:37 116/71 05/16/24 09:37 116/71 05/16/24 09:09 81 05/16/24 08:22 36.6 C 92 H 20 122/74 94 Room Air Laboratory Results Short CBC 05/16/24 Range/Units 08:35 WBC 13.85 H (4.8-10.8) K/ul Hgb 14.0 (12.0-16.0) g/dl Hct 43.7 (37.0-47.0) % Plt Count 347 (130-400) K/uL BMP 05/16/24 08:35 Sodium 138 Potassium 3.8 Chloride 104 Carbon Dioxide 25 BUN 16 Creatinine 1.31 H Glucose 133 H Calcium 9.2 Liver Function 05/16/24 Range/Units 08:35 Total Bilirubin 0.4 (0.2-1.0) mg/dl AST 18 (13-39) U/L ALT 14 (7-52) U/L Alkaline Phosphatase 91 (34-104) U/L Albumin 3.8 (3.4-5.0) gm/dl Diagnostic Findings Chest X-Ray 05/16/24 08:55 XR chest 1V portable HISTORY: 73 years-old Female neuro deficit, acute stroke suspected COMPARISON: 03/23/2023 TECHNIQUE: AP view the chest FINDINGS: Cardiomediastinal and hilar silhouettes are within normal limits. Atherosclerosis of the aorta. No pneumothorax, pleural effusion or airspace consolidation. The bones appear grossly intact. Left-sided rotator cuff calcific tendinosis. Healed chronic left-sided rib fractures. IMPRESSION: No acute process. ACT 112: Negative or not required by law. The above report was generated using voice recognition software. It may contain grammatical, syntax or spelling errors. Electronically signed by: Negro Rodarte M.D. 05/16/2024 9:23 AM Foot X-Ray 05/16/24 08:55 XR foot LT min 3V routine HISTORY: 73 years-old Female fall, lateral pain acute pain of the left foot status post fall COMPARISON: 06/07/2019 TECHNIQUE: 3 views of the left foot FINDINGS: Demineralized appearance of the bones with mostly mild multifocal osteoarthritis. No acute fracture, dislocation or osseous erosion. Small calcaneal enthesophytes. Os peroneum. Possible foreign body within the plantar and lateral tissues, 2 mm on the oblique and lateral views. IMPRESSION: 1. No acute fracture or dislocation. 2. Possible punctate foreign body. ACT 112: Negative or not required by law. The above report was generated using voice recognition software. It may contain grammatical, syntax or spelling errors. Electronically signed by: Negro Rodarte M.D. 05/16/2024 9:[address] 05/16/24 08:55 CT head/brain wo con CLINICAL HISTORY: 73 years-old Female with neuro deficit, acute stroke suspected. Acute stroke like symptoms TECHNIQUE: Multiple axial CT images of the head were obtained without contrast. A dose lowering technique was utilized adhering to the principles of ALARA. COMPARISON: CTA head of same day, head CT 10/09/2018 FINDINGS: No acute intracranial hemorrhage, midline shift, intracranial mass, hydrocephalus, territorial ischemia or abnormal extra-axial collection. Involutional changes with suggestion of chronic microvascular ischemic disease. Cerebral vascular calcifications. The calvarium is intact. Small left mastoid effusion. The right mastoid air cells are clear. Prior partial ethmoidectomy. Mild mucosal thickening with small air-fluid level of the left maxillary sinus. Prior bilateral lens repair. IMPRESSION: No acute intracranial abnormality. ACT 112: Negative or not required by law. The above report was generated using voice recognition software. It may contain grammatical, syntax or spelling errors. Electronically signed by: Negro Rodarte M.D. 05/16/2024 10:05 AM Head CTA 05/16/24 08:55 CT ANGIOGRAM OF THE BRAIN CLINICAL HISTORY: Neurological deficit. Stroke like symptoms. COMPARISON STUDY: Unenhanced CT of the brain performed concurrently on 05/16/2024. MR angiography of the brain dated 09/16/2013. TECHNIQUE: Following the IV administration of 120 cc of Optiray 320, CT angiogram of the brain was performed from the skull base to the vertex. Images are reviewed in the axial, sagittal, and coronal planes. 3-D MIPS images are created and assessed. IV contrast was administered without complication. A dose lowering technique was utilized adhering to the principles of ALARA. FINDINGS: Brain parenchyma: There is age-related involutional change noting minimal microangiopathic disease. There is no evidence of hemorrhage, mass effect, or acute territorial ischemia noting angiographic phase technique. There is no evidence of enhancing mass lesion on the angiogram phase images. No extra-axial fluid collection is seen. Senior-white matter differentiation is preserved. Ventricles, sulci, and cisterns: Prominent secondary to involutional change. CT angiogram of the brain: There is atherosclerotic calcification of the cavernous carotid arteries. The internal carotid arteries are widely patent, as are the anterior and middle cerebral arteries. The vertebrobasilar system and posterior cerebral arteries are widely patent. The vertebral arteries are codominant. There is a right posterior communicating artery. There is no aneurysm, high-grade stenosis, or focal vessel cutoff identified throughout the intracranial circulation. Dural sinuses: Clear as visualized. Orbits: The bony orbits are intact. The orbital contents are normal as visualized noting bilateral ocular lens implants. Sinuses and mastoids: There is evidence of previous paranasal sinus surgery. There is mild mucosal thickening in the left maxillary antrum. Trace mucosal thickening is seen within the sphenoid sinuses, frontal sinuses, and the ethmoid cavity. There are small mastoid effusions, left larger than right. Calvarium: Unremarkable. IMPRESSION: 1. There is no evidence of hemorrhage, mass effect, or acute territorial ischemia noting angiographic phase technique. 2. Unremarkable CT angiogram of the brain. ACT 112: Negative or not required by law. Electronically signed by: Rogelio Nugent M.D. 05/16/2024 9:50 AM Knee X-Ray 05/16/24 08:55 RIGHT KNEE 3 VIEWS CLINICAL HISTORY: Fall. Right knee pain. FINDINGS: AP, crosstable lateral, and sunrise views of the right knee are compared to study dated 07/25/2009. The skeletal structures are osteopenic. No fracture is seen. The joint spaces are maintained. There are tiny marginal osteophytes and patellar enthesophytes. A joint effusion is noted. The overlying soft tissues are normal as imaged. A calcified fabella is observed. IMPRESSION: Joint effusion with no acute bony abnormality identified. Electronically signed by: Rogelio Nugent M.D. 05/16/2024 10:32 AM Neck CTA 05/16/24 08:55 CT angio neck with con CLINICAL HISTORY: 73 years-old Female with neuro deficit, acute stroke suspected. Acute stroke symptoms COMPARISON STUDY: CTA of head of same day TECHNIQUE: Following the IV administration of 1 20 mL of Optiray, CT angiogram of the neck was performed from the aortic arch to the skull base. Images are reviewed in the axial, sagittal, and coronal planes. 3-D MIPS images are created and assessed. IV contrast was administered without complication. All measurements were calculated based on NASCET criteria. A dose lowering technique was utilized adhering to the principles of ALARA. CT DOSE: 1053.29 mGy.cm FINDINGS: Moderate atherosclerosis of the thoracic aortic arch. Patent common and internal carotid arteries without significant atherosclerosis. The vertebral arteries are codominant and widely patent. Mild mucosal thickening of the paranasal sinuses. Small left mastoid effusion. Multilevel degenerative changes of the cervical spine. Pulmonary emphysema. The lung apices appear generally clear. No acute fracture identified. IMPRESSION:Unremarkable CTA of the neck. ACT 112: Negative or not required by law. The above report was generated using voice recognition software. It may contain grammatical, syntax or spelling errors. Electronically signed by: Negro Rodarte M.D. 05/16/2024 10:07 AM Duplex Scan Lower Extremity Artery 05/16/24 08:57 US arterial duplex LE RT CLINICAL HISTORY: leg pain, weakness, cool, diminished pulse TECHNIQUE: Real-time grayscale and color and spectral Doppler ultrasound imaging of the right lower extremity arteries was performed. Measurements calculated ba sed on NASCET criteria. COMPARISON: None available at the time of this dictation. FINDINGS/IMPRESSION: No elevated velocities are seen to suggest hemodynamically significant stenosis. Triphasic waveforms are seen to the level of the femoral artery with biphasic waveforms at the popliteal artery and below. ACT 112: Negative or not required by law. Electronically signed by: To Barney M.D. 05/16/2024 10:58 AM Medications Administered Sodium Chloride (Nss) 1,000 mls @ 50 mls/hr IV .Q20H CHRISTINA Stop: 06/15/24 08:59 Last Admin: 05/16/24 09:37 Dose: 50 mls/hr Documented By: MMF Discontinued Medications Aspirin (Aspirin Chew 324 Mg) 324 mg PO NOW STA Stop: 05/16/24 10:59 Last Admin: 05/16/24 11:03 Dose: 324 mg Documented By: MMF Acetaminophen (Ofirmev) 1,000 mg in 100 mls @ 400 mls/hr IV NOW STA Stop: 05/16/24 11:19 Last Admin: 05/16/24 11:14 Dose: 400 mls/hr Documented By: MMF Ioversol (Optiray 320 125ml) 120 ml IV ONCE ONE Stop: 05/16/24 09:40 Last Admin: 05/16/24 09:40 Dose: 120 ml Documented By: JAR Code Status & VTE Plan Code Status FULL CODE Supervising Physician Co-Signing Physician Notes Pt was seen and examined by myself, Chani Haley MD on the day of service. Care was coordinated with Arielle Beckwith PA-C. 73yoF presenting from home with concern for syncopal episode vs. fall at home. Also concern for LLE cellulitis, R knee pain and RLE coolness. On exam, pt alert, weak. RLE cold on exam compared to LLE, does not appear more pale. R knee swollen Arterial Doppler US negative, follow CTA aorta with runoff Stroke work up negative thus far, brain MRI pending Syncope workup IV Rocephin for left sanchez cellulitis Orthopedics consult, appreciate recs Otherwise as above. I spent a total [id number] coordinating, documenting, and providing care for this patient excluding time spent in the performance of separately billed services
[2024-05-16 12:25] LABS: INR 1.1 (0.9-1.1); Partial Thromboplastin Time 27 Seconds (21-31); Prothrombin Time 11.4 Seconds (9.0-12.0)
--- OUTSIDE RECORDS SUMMARY | 2024-05-16 13:47 | External Medical Summary | Summary of Care ---
Author Name Unknown Organization [facility] Address [address] [place] [address] Phone [phone] Care Team Providers Care Business Unit Leader Name Role Phone Franca Lilly MD Primary Care Provider [phone] Reason for Visit * Reason Comments Medication Refill Encounter Details Date Type Department Care Team (Late st Contact Info) Description 05/07/2024 Refill [facility] [address] [place] [address] Franca Lilly MD [address] [place] [address] Allergies Active Allergy Reactions Criticality Noted Date Comments 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 Quinolones Other (Please comment) 02/19/2003 Hives Moods- becomes nasty Adhesive Tape Rash 01/29/2014 documented as of this encounter (statuses as of 05/08/2024) Medications Medication Sig Dispensed Refills Start Date End Date Status NEBULIZERS MISCIndications:PORTER SAMPLE CASE D, 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) portable nebulizer 1 Each 5 01/24/2014 Active Spacer/Aero-Holding Chambers DEVIIndications:PORTER SAMPLE CASE D, severe (HCC) Use with QVar inhaler 1 Device 3 10/02/2016 Active Blood Pressure Monitoring (BD ASSURE BPM/AUTO ARM CUFF) MISC Check BP daily as needed 1 Each 12/06/2018 Active ONETOUCH DELICA LANCETS 33G MISC USE DIRECTED 4 TIMES A DAY 100 Each 5 07/24/2019 Active Glucose Blood (ONETOUCH VERIO) STRPIndications:DM type 2, goal: symptom mgmt (HCC) USE DIRECTED 2 TIMES A DAY DX:E11.9 200 Strip 3 01/12/2020 Active Calcium Carbonate Antacid 500 MG Oral Tablet Chewable Take 1 Tablet by mouth in the morning and 1 Tablet at noon and 1 Tablet in the evening. Take with meals. Active guaiFENesin ER 600 MG Oral Tablet Extended Release 12 Hour Take 1 Tablet by mouth in the morning and 1 Tablet before bedtime. Active Dextromethorphan-gu aiFENesin 10-100 MG/5ML Oral Syrup Take 10 mL by mouth every 6 hours as needed for Cough. Active Azelastine HCl 137 MCG/SPRAY Nasal SolutionIndications :Rhinitis, nonallergic ADMINISTER 2 SPRAYS INTO EACH NOSTRIL 2 TIMES A DAY. 90 mL 1 11/02/2022 Active Vitamin D (Ergocalciferol) 1.25 MG (73260 UT) Oral Capsule (Drisdol) TAKE 1 CAPSULE BY MOUTH ONE TIME PER WEEK Strength: 1.25 MG (62781 UT) 12 Capsule 1 02/19/2023 Active Additional Information Patient not taking.Reported on 09/23/2023 Nitroglycerin 0.4 MG Sublingual Tablet Sublingual (Nitrostat)Indicati ons:Heart failure, systolic, due to idiopathic cardiomyopathy (HCC) Place 1 Tablet under the tongue every 5 minutes as needed for chest pain. 25 Tablet 5 05/24/2023 Active Potassium Chloride Tegan ER 10 MEQ Oral Tablet Extended ReleaseIndications: COPD, severe (HCC),Hypothyroidis m, unspecified type,Vitamin D deficiency Take 1 Tablet by mouth in the morning. 180 Tablet 1 08/26/2023 Active oxygen IN GASIndications:COPD , severe (HCC),Heart failure, systolic, due to idiopathic cardiomyopathy (HCC),Nocturnal hypoxemia,Dependenc e on supplemental oxygen Use 2 L/min(Oxygen) as directed daily. By NC. With any activity, should keep 2L oxygen for hypoxia 1 Each 08/26/2023 Active PARoxetine HCl 40 MG Oral Tablet (pAXil) TAKE ONE TABLET BY MOUTH EVERY MORNING 90 Tablet 3 09/06/2023 09/05/19 25 Active Atorvastatin Calcium 40 MG Oral Tablet (Lipitor)Indication s:Dyslipidemia, goal LDL below 70 TAKE ONE TABLET BY MOUTH AT BEDTIME 90 Tablet 3 09/06/2023 Active Furosemide 20 MG Oral Tablet (Lasix)Indications: Heart failure, systolic, due to idiopathic cardiomyopathy (HCC) TAKE ONE TABLET BY MOUTH EVERY MORNING 90 Tablet 3 09/08/2023 09/07/19 25 Active Budesonide 0.5 MG/2ML Inhalation Suspension (Pulmicort) PLACE ONE RESPULE INTO 240 ML OF SALINE IN URIAH MED BOTTLE AND IRRIGATE NOSE TWICE DAILY 360 mL 1 09/07/2023 09/06/19 25 Active Lisinopril 10 MG Oral Tablet (Prinivil)Indicatio ns:HTN, goal below 140/90 TAKE ONE TABLET BY MOUTH EVERY DAY 90 Tablet 3 09/08/2023 09/07/19 25 Active Montelukast Sodium 10 MG Oral Tablet (Singulair)Indicati ons:COPD, severe (HCC) TAKE ONE TABLET BY MOUTH EVERY MORNING 90 Tablet 3 09/16/2023 09/15/19 25 Active Levothyroxine Sodium 75 MCG Oral Tablet (Levoxyl)Indication s:Hypothyroidism, unspecified type TAKE 1 TABLET BY MOUTH DAILY AT LEAST 30 MINUTES PRIOR TO FIRST MEAL OF THE DAY OR OTHER MEDICATIONS 90 Tablet 2 09/16/2023 09/15/19 25 Active Benzonatate 100 MG Oral Capsule (Tessalon Perles) Take 1 Capsule by mouth 3 times a day as needed for Cough. Active Vitamin D3 125 MCG (5000 UT) Oral Capsule Take one capsule by mouth every other day Active Pantoprazole Sodium 40 MG Oral Tablet Delayed Release (Protonix) TAKE ONE TABLET BY MOUTH EVERY MORNING 90 Tablet 3 10/04/2023 Active Aspirin 81 MG Oral Tablet Delayed Release (Aspirin Low Dose)Indications:HT N, goal below 140/90 TAKE ONE TABLET BY MOUTH EVERY MORNING 90 Tablet 3 10/11/2023 10/10/19 25 Active linaGLIPtin 5 MG Oral Tablet (Tradjenta) Take 1 Tablet by mouth in the morning. 90 Tablet 3 12/14/2023 Active Clotrimazole 10 MG Mouth/Throat Krunal (Mycelex Krunal)Indications: Thrush DISSOLVE 1 KRUNAL IN MOUTH 5 TIMES A DAY NEEDED FOR THRUSH 60 Krunal 1 12/16/2023 Active methylPREDNISolone 4 MG Oral Tablet Therapy Pack (Medrol Dosepack) follow package directions 21 Tablet 01/04/2024 Active Loratadine 10 MG Oral Tablet (Claritin)Indicatio ns:Chronic rhinitis TAKE ONE TABLET BY MOUTH EVERY MORNING 100 Tablet 3 01/10/2024 01/10/20 25 Active Albuterol Sulfate HFA 108 (90 Base) MCG/ACT Inhalation Aerosol SolutionIndications :COPD exacerbation (HCC) INHALE TWO PUFFS BY MOUTH FOUR TIMES A DAY 54 g 3 01/10/2024 01/10/20 25 Active Nystatin 344181 UNIT/GM External CreamIndications:Ca ndidal skin infection APPLY TO AFFECTED AREA(S) TWICE A DAY FOR 2 WEEKS 60 g 5 01/21/2024 Active Atenolol 25 MG Oral Tablet (Tenormin)Indicatio ns:HTN, goal below 140/90,Heart failure, systolic, due to idiopathic cardiomyopathy (HCC) TAKE ONE TABLET BY MOUTH EVERY MORNING 90 Tablet 1 02/28/2024 02/28/20 25 Active Gabapentin 300 MG Oral Capsule (Neurontin)Indicati ons:Pain of left thigh TAKE 1 CAPSULE BY MOUTH EVERY MORNING AND AT NOON AND TAKE 2 CAPSULES AT BEDTIME 360 Capsule 1 02/29/2024 02/29/20 25 Active Alendronate Sodium 70 MG Oral Tablet (Fosamax)Indication s:High risk for fracture due to osteoporosis by DEXA scan TAKE 1 TABLET BY MOUTH ONCE A WEEK WITH 8 OZ WATER 30 MIN BEFORE 1ST MEAL OF THE DAY, REMAIN UPRIGHT FOR 30 MIN AFTER 12 Tablet 03/09/2024 Active rOPINIRole HCl 0.25 MG Oral Tablet (Requip)Indications :RLS (restless legs syndrome),Persisten t insomnia TAKE ONE TABLET BY MOUTH EVERY DAY AT BEDTIME 30 Tablet 04/14/2024 04/14/20 25 Active Trelegy Ellipta 200-62.5-25 MCG/ACT Aerosol Powder Breath Activated (Fluticasone-Umecli dinium-Vilanterol) Inhale 1 Puff by mouth in the morning. 180 Each 1 05/08/2024 Active Fluticasone-Umeclid in-Vilant 200-62.5-25 MCG/ACT Aerosol Powder Breath Activated (Trelegy Ellipta) Inhale 1 Puff by mouth in the morning. 60 Each 11 05/24/2023 05/07/20 24 Discontinu ed(Refill) Hospital, Clinic, or Other Facility Administered Medication Ordered Dose Route Frequency Start Date End Date Status Albuterol Sulfate (Proventil) (2.5 MG/3ML) 0.083% inhalation solution 2.5 mgIndications:Chronic respiratory failure with hypoxia (HCC),COPD, group D, by GOLD 2017 classification (HCC) 2.5 mg NEBULIZER PRN 12/06/2023 12/05/2024 Acti ve Albuterol Sulfate (Proventil) (5 MG/ML) 0.5% *conc* inhalation solution 2.5 mgIndications:Chronic respiratory failure with hypoxia (HCC),COPD, group D, by GOLD 2017 classification (HCC) 2.5 mg NEBULIZER PRN 12/06/2023 12/05/2024 Acti ve documented as of this encounter (statuses as of 05/08/2024) Active Problems Problem Noted Date Diagnosed Date Hypertensive heart disease w ith systolic heart failure and stage 3 chronic kidney disease 08/26/2023 Current mild episode of christina r depressive disorder without prior episode 12/13/2020 Chronic respiratory failure with hypoxia 021 High risk for fracture due to osteoporosis by DE XA scan 09/14/2019 Gastroesophageal reflux disease without esophagi tis 09/14/2019 COPD, group D, by GOLD 2017 classification 09/04 Overview: Per COPD GOLD Classification In Check dial performed to assess inhaler technique: 10/25/19 Name of inhalers Albuterol and Flovent Pass: Yes at 60L/min and Trelegy Ellipta Pass: Yes at 40L/min. Encouraged to take deep breaths, use aero chamber and rinse after steroid. Test performed by Loli [facility]EW[facility] Hypertensive kidney disease, stage III 9 Diabetes mellitus with stage 3 chronic kidney di sease 10/17/2018 Dyslipidemia, goal LDL below 70 01/05/2018 Type 2 diabetes mellitus wit h hemoglobin A1c goal of less than 8.0% 01/04/2018 Osteoarthritis of cervical spine 08/19/2017 Macular degeneration 12/24/2016 Hypothyroidism 06/17/2016 Overview: ICD-10 Update of inactive term Current smoker 04/07/2016 Primary osteoarthritis involving multiple joints 12/10/2015 HTN, goal below 140/90 11/08/2014 Heart failure, systolic, due to idiopathic cardi omyopathy 01/18/2014 Vitamin D deficiency 06/02/2012 Anxiety state 09/23/2011 documented as of this encounter (statuses as of 05/08/2024) Resolved Problems Problem Noted Date Diagnosed Date Resolved Date Moderate persistent asthma w ith acute exacerbation 08/29/2021 12/10/2021 Major depressive disorder, s shanti episode, unspecified 09/14/2019 06/04/2022 Overview: More specified/recent Dx listed on PL Chronic respiratory failure 10/17/2018 06/11/2022 Thrush 09/20/2017 10/13/2018 Acute on chronic respiratory failure with hypoxemia 02/18/2017 07/07/2017 Bronchitis, complicated 02/18/201706/23 COPD exacerbation 02/18/2017 07/07/2017 Type 2 diabetes mellitus wit h hemoglobin A1c goal of less than 8.0% 02/18/2017 07/07/2017 Blind in both eyes 12/24/2016 2 Chronic rhinitis 04/17/2016 02/16/2017 Chronic sinusitis 01/21/2016 02/16/2017 Rhinitis, nonallergic 12/24/20152016 Elevated IgE level 11/07/2015 7 Visit for eye and vision exam 09/02/2015 12/24/2016 COPD, severe 01/29/2014 09/07/2019 Overview: Per COPD GOLD Classification Allergic rhinitis 01/29/2014 12/24/2015 History of tracheostomy 01/24/201401/22 Heart failure, diastolic, due to HTN 01/18/2014 01/18/2014 Acute respiratory failure 10/26/2013 Congestive heart failure, unspecified 10/26/2013 01/18/2014 Pneumonia due to other speci fied bacteria(482.89) 10/26/2013 12/11/2014 Emphysema lung 10/26/2013 12/24/2016 History of tobacco use 10/26/201306/04 Overview: quit 09/08/13 Irritable bowel syndrome 01/30/2013 Trigeminal neuralgia 07/04/2012 012 Chronic pain 07/04/2012 12/24/2016 Trigeminal neuralgia 07/04/2012 015 Overweight (BMI 25.0-29.9) 06/02/2012 0 12/24/2016 Overview: bmi= 28.65 06/02/12 Respiratory failure 06/02/2012 12/12/19 15 COPD exacerbation 06/02/2012 12/24/2016 Tobacco use disorder 06/02/2012 014 Kidney disease, chronic, sta ge III (GFR 30-59 ml/min) 06/02/2012 11/08/2014 DJD (degenerative joint disease) 06/02/2012 06/05/2015 Major depression, single episode 06/02/2012 12/24/2016 HTN, goal below 140/80 06/02/201211/08 Dermatitis 06/02/2012 12/24/2016 Kidney disease, chronic, sta ge III (GFR 30-59 ml/min) 01/11/2012 06/02/2012 Overview: Per CKD protocol #1 Hypothyroidism 10/02/2011 06/17/2016 Overweight (BMI 25.0-29.9) 09/23/2011 0 12/24/2016 Overview: bmi= 26.54 09/23/11 COPD, severe 09/23/2011 09/23/2011 Generalized osteoarthritis 09/23/2011 0 12/10/2015 Generalized osteoarthritis 09/23/2011 0 09/23/2011 IBS (irritable bowel syndrome) 09/23/2011 02/16/2017 COPD, moderate 07/02/2011 01/29/2014 Hypoxemia 09/10/2010 07/07/2017 Overview: 09/10/10 -- Oxygen at 2 L at rest, 4 L with exertion, 3.5 L during sleep [facility] Oxygen Hypercalcemia 06/09/2010 12/11/2014 Dyslipidemia, goal LDL below 100 06/06/2010 01/05/2018 Special screening for malign ant neoplasms, colon 06/06/2010 12/11/2014 COPD exacerbation 07/16/2009 12/11/2014 Vitamin D deficiency 05/21/2009 015 Chest pain 05/20/2009 12/11/2014 Acute URI 05/20/2009 08/13/2009 Overview: Modified by Acute Dx Protocol #3. Anxiety state 05/20/2009 10/26/2013 Thrush 05/20/2009 12/11/2014 Allergic rhinitis 05/16/2008 12/11/2014 Dyslipidemia, goal to be determined 05/16/2008 06/06/2010 S/P FX WRIST, RIGHT 04/2911/14/200711/2016 Osteoporosis 05/10/2007 12/11/2014 Acute bronchitis, antibiotics not indicated 05/10/2007 11/14/2007 FX WRIST, RIGHT 05/10/2007 05/16/2008 Anxiety state 05/03/2006 11/14/2007 DYSFUNCT EUSTACHIAN TUBE 04/20/2006 Thrush 03/29/2006 11/14/2007 Slow transit constipation 03/24/2004 Olecranon bursitis 03/24/2004 8 ROUTINE MEDICAL EXAM 05/22/2003 015 Gynecological examination 05/22/2003 Screening for malignant neoplasm of breast 05/22/2003 10/31/2008 Overview: Resolved per Screening Diagnosis Protocol #6 POST-HERPETIC NEURALGIA 02/24/200206/23 COPD exacerbation 01/24/2002 06/02/2012 Herpes zoster 01/24/2002 11/14/2007 Abnormal weight gain 12/14/2001 008 Organic sleep disorder 12/14/200112/11 COPD, severity to be determined 10/11/2001 09/23/2011 Overview: PFT 06/06/10 - FEV1 62%, FVC 76%, moderate COPD, severely reduced MVV, hyperinflation, improved with albuterol PFT 07/2003 - FEV1 57%, FVC 57%, no hyperinflation Tobacco use disorder 10/11/2001 012 Chronic rhinitis 09/23/2001 12/11/2014 Esophageal reflux 06/10/2001 09/11/2019 Overview: cuplicate GENERAL OSTEOARTHROSIS 06/10/200109/23 Menopause 06/10/2001 12/11/2014 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, SO STATED 06/10/2001 12/11/2014 Constipation 12/26/1999 11/14/2007 Overview: ICD-10 update of inactive term Heartburn 12/26/1999 12/11/2014 Panic disorder 12/26/1999 12/11/2014 Major depressive disorder Overview: ICD-10 update of inactive term CLASSICAL MIGRAINE WITHOU ME NTION OF INTRACTABLE MIGRAINE 12/11/2014 COPD, very severe 09/23/2011 documented as of this encounter (statuses as of 05/08/2024) Immunizations Name Administration Dates Next Due COVID-19 mRNA, LNP-s, No Pre serve, 2-Dose Series (iDreamBooks) 05/27/2021,11/21/2020,10/31/2020 Pneumococcal Conjugate Vacc, 13 Valent (Prevnar) 12/02/2015 Pneumococcal Polysaccharide PPV23 (Pneumovax) 07/07/2017,08/04/2006 Season Influenza, Quad, PF, Adjuvanted, 65+ Yrs, IM (FLUAD) 08/08/2021 Seasonal Influenza, High Dos e, Trivalent, PF, IM (Fluzone HD) 05/22/2019 Seasonal Influenza, PF, 6 M & above, IM , (FluLaval or Fluzone) 05/27/2020,05/09/2018 Seasonal Influenza, Quadriva lent Hd (Fluzone Hd) 05/24/2023,06/11/2022 Seasonal Influenza, Quadriva lent, No Preserve, IM 05/23/2019,05/23/2017,05/06/2016,06/05 Seasonal Influenza, Trivalen t, (IIV3), with Preserv, (Fluzone) 06/04/2014,05/25/2013,05/27/2012,06/06,05/27/2009,07/02/2008,07/08/2007 ,06/02/2006 TD, Preservative Free 08/03/2018 TDAP (age 10 and older)(Boostrix) 08/03/2018 TDAP, Age 7 and older, IM (Adacel) 05/16/2008 Varicella Zoster Vaccine (Adult) 03/18/2018 Zoster Vaccine Recombinant (Shingrix) 01/10/2019 documented as of this encounter Social History Tobacco Use Types Packs/Day Years Used Date Smoking Tobacco: Every Day Cigarettes 1.5 51 Passive Smoke Exposure: Current Smokeless Tobacco: Never Comments:10/27/23 currently smoking 7-10 cig/day Alcohol Use Standard Drinks/Week Comments No 0 (1 standard drink = 0.6 oz pur e alcohol) PHQ-2 Answer Date Recorded PHQ-2 Score -1 05/12/2020 Hunger Vital Sign Answer Date Recorded Worried About Running Out of Food in the Last Ye ar Never true 09/14/2019 Ran Out of Food in the Last Year Never true 09/14/2019 Sex and Gender Information Value Date Recorded Sex Assigned at Not on file Gender Identity Not on file Sexual Orientation Not on file Job Start Date Occupation Industry Not on file Not on file Not on file documented as of this encounter Miscellaneous Notes * Telephone Encounter - Samina Brownlee [facility] - 05/08/2024 4:52 PM EDT Signed Prescriptions: Disp Refills Trelegy Ellipta 200-62.5-25 MCG/ACT Aeroso*180 Ea*1 Sig: Inhale 1 Puff by mouth in the morning.Authorizing Provider: Imer LILLY User: SAMINA BROWNLEE documented in this encounter Plan of Treatment Health Maintenance Due Date Last Done Comments Alpha-1 Antitrypsin 1969 Hepatitis C Screening 1969 Cologuard 1996 Colonoscopy 1996 Sigmoidoscopy 1996 Colorectal Cancer Screening 01/22/2012 Fecal Occult Blood Test 01/22/2012 01/22/20 11, 12/21/2008, 12/03/2007 DISCUSS TOBACCO CESSATION (REFER TO SMARTSET #3291) 12/12/2015 12/11/2014 (Discussed) Adult Wellness Visit 2017 Zoster Vaccines (3 of 3) 03/07/2019 01/10/2019, 02/21 Depression Monitoring 09/14/2020 09/14/2019 CKD PHOS USE SMARTSET 00429 12/10/202211/22, 12/13/2020, 12/11/2014, Additional history exists Albumin/Creatinine Ratio 06/11/2023 022, 07/07/2017, 12/11/2014, Additional history exists Mammogram 09/09/2023 09/09/2022, 08/23, 12/06/2018, Additional history exists HbA1c 11/23/2023 05/24/2023, 05/24, 12/10/2021, Additional history exists GFR 02/24/2024 08/26/2023, 1009/2022, 06/11/2022, Additional history exists COVID-19 Vaccine ( season) 2024 05/27/2021, 11/21/2020, 10/31/2020 Influenza Vaccine (FLU shot) (#1) 2024 05/24/2023, 06/11/2022, 08/08/2021, Additional history exists Diabetic Foot Exam 05/24/2024 05/24/2023, 0 12/10/2021, 09/14/2019, Additional history exists TSH 05/24/2024 05/24/2023, 05/24, 12/10/2021, Additional history exists CKD HGB USE SMARTSET 47836 08/26/202408/26, 08/26/2023, 05/24/2023, Additional history exists Diabetic Eye Exam 08/26/2024 08/26/2023, , 11/25/2017 O2 ASSESSMENT COMPLETED IN PAST YEAR FOR COPD 08/26/2024 08/26/2023 DXA Scan 12/13/2025 12/14/2023, 11/22, 12/07/2018, Additional history exists Lipid Panel 12/10/2026 12/10/2021, 11/22, 03/01/2019, Additional history exists DTap/Tdap Vaccines (4 - Td or Tdap) 08/03/2028 08/03/2018, 08/03/2018, 05/16/2008 Pneumococcal Vaccine: 65+ Years Completed 07/07/2017, 12/02/2015, 08/04/2006, Additional history exists Lung Cancer Screening Completed 04/15/2020 , 05/11/2006, 05/03/2003 VITAMIN D LEVEL ONCE IN A LIFETIME-USE SMARTSET# [id number] Completed 12/10/2021, 03/01/2019, 07/07/2017, Additional history exists HPV (Gardasil) Vaccine Aged Out No lo nger eligible based on patient's age to complete this topic Hepatitis B Vaccine Aged Out No longe r eligible based on patient's age to complete this topic MENINGOCOCCAL (MENACTRA/MENVEO) Aged Out No longer eligible based on patient's age to complete this topic documented as of this encounter Medical Devices Not on filedocumented as of this encounter Advance Directives Documents on File Type Date Recorded Patient Paper Steamer Expl anation POL 08/03/2018 POLST Care Teams Business Unit Leader Relationship Specialty Start Date End Date Franca Lilly MD PCP - General Internal Medicine 07/03/22 documented as of this encounter
--- OUTSIDE RECORDS SUMMARY | 2024-05-16 13:47 | External Medical Summary | Summary of Care ---
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 Active Dextromethorphan-gua iFENesin 10-100 MG/5ML Oral Syrup Take 10 mL by mouth every 6 hours as needed for Cough. Active Azelastine HCl 137 MCG/SPRAY Nasal SolutionIndications: Rhinitis, nonallergic ADMINISTER 2 SPRAYS INTO EACH NOSTRIL 2 TIMES A DAY. 90 mL 1 11/02/2022 Active Vitamin D (Ergocalciferol) 1.25 MG (40220 UT) Oral Capsule (Drisdol) TAKE 1 CAPSULE BY MOUTH ONE TIME PER WEEK Strength: 1.25 MG (04454 UT) 12 Capsule 1 02/19/2023 Active Additional Information Patient not taking.Reported on 09/23/2023 Nitroglycerin 0.4 MG Sublingual Tablet Sublingual (Nitrostat)Indicatio ns:Heart failure, systolic, due to idiopathic cardiomyopathy (HCC) Place 1 Tablet under the tongue every 5 minutes as needed for chest pain. 25 Tablet 5 05/24/2023 Active Potassium Chloride Tegan ER 10 MEQ Oral Tablet Extended ReleaseIndications:C OPD, severe (HCC),Hypothyroidism , unspecified type,Vitamin D deficiency Take 1 Tablet by mouth in the morning. 180 Tablet 1 08/26/2023 Active oxygen IN GASIndications:COPD, severe (HCC),Heart failure, systolic, due to idiopathic cardiomyopathy (HCC),Nocturnal hypoxemia,Dependence on supplemental oxygen Use 2 L/min(Oxygen) as directed daily. By NC. With any activity, should keep 2L oxygen for hypoxia 1 Each 08/26/2023 Active PARoxetine HCl 40 MG Oral Tablet (pAXil) TAKE ONE TABLET BY MOUTH EVERY MORNING 90 Tablet 3 09/06/2023 Active Atorvastatin Calcium 40 MG Oral Tablet (Lipitor)Indications :Dyslipidemia, goal LDL below 70 TAKE ONE TABLET BY MOUTH AT BEDTIME 90 Tablet 3 09/06/2023 Active Furosemide 20 MG Oral Tablet (Lasix)Indications:H eart failure, systolic, due to idiopathic cardiomyopathy (HCC) TAKE ONE TABLET BY MOUTH EVERY MORNING 90 Tablet 3 09/08/2023 5 Active Budesonide 0.5 MG/2ML Inhalation Suspension (Pulmicort) PLACE ONE RESPULE INTO 240 ML OF SALINE IN URIAH MED BOTTLE AND IRRIGATE NOSE TWICE DAILY 360 mL 1 09/07/2023 Active Lisinopril 10 MG Oral Tablet (Prinivil)Indication s:HTN, goal below 140/90 TAKE ONE TABLET BY MOUTH EVERY DAY 90 Tablet 3 09/08/2023 5 Active Montelukast Sodium 10 MG Oral Tablet (Singulair)Indicatio ns:COPD, severe (HCC) TAKE ONE TABLET BY MOUTH EVERY MORNING 90 Tablet 3 09/16/2023 5 Active Levothyroxine Sodium 75 MCG Oral Tablet (Levoxyl)Indications :Hypothyroidism, unspecified type TAKE 1 TABLET BY MOUTH DAILY AT LEAST 30 MINUTES PRIOR TO FIRST MEAL OF THE DAY OR OTHER MEDICATIONS 90 Tablet 2 09/16/2023 Active Benzonatate 100 MG Oral Capsule (Tessalon [...] MG Oral Tablet Delayed Release (Aspirin Low Dose)Indications:HTN , goal below 140/90 TAKE ONE TABLET BY MOUTH EVERY MORNING 90 Tablet 3 10/11/2023 5 Active linaGLIPtin 5 MG Oral Tablet (Tradjenta) Take 1 Tablet by mouth in the morning. 90 Tablet 3 12/14/2023 Active Clotrimazole 10 MG Mouth/Throat Krunal (Mycelex Krunal)Indications:T hrush DISSOLVE 1 KRUNAL IN MOUTH 5 TIMES A DAY NEEDED FOR THRUSH 60 Krunal 1 12/16/2023 Active methylPREDNISolone 4 MG Oral Tablet Therapy Pack (Medrol Dosepack) follow package directions 21 Tablet 01/04/2024 Active Loratadine 10 MG Oral Tablet (Claritin)Indication s:Chronic rhinitis TAKE ONE TABLET BY MOUTH EVERY MORNING 100 Tablet 3 01/10/2024 5 Active Albuterol Sulfate HFA 108 (90 Base) MCG/ACT Inhalation Aerosol SolutionIndications: COPD exacerbation (HCC) INHALE TWO PUFFS BY MOUTH FOUR TIMES A DAY 54 g 3 01/10/2024 5 Active Nystatin 940995 UNIT/GM External CreamIndications:Can didal skin infection APPLY TO AFFECTED AREA(S) TWICE A DAY FOR 2 WEEKS 60 g 5 01/21/2024 Active Atenolol 25 MG Oral Tablet (Tenormin)Indication s:HTN, goal below 140/90,Heart failure, systolic, due to idiopathic cardiomyopathy (HCC) TAKE ONE TABLET BY MOUTH EVERY MORNING 90 Tablet 1 02/28/2024 Active Gabapentin 300 MG Oral Capsule (Neurontin)Indicatio ns:Pain of left thigh TAKE 1 CAPSULE BY MOUTH EVERY MORNING AND AT NOON AND TAKE 2 CAPSULES AT BEDTIME 360 Capsule 1 02/29/2024 Active Alendronate Sodium 70 MG Oral Tablet (Fosamax)Indications :High risk for fracture due to osteoporosis by DEXA scan TAKE 1 TABLET BY MOUTH ONCE A WEEK WITH 8 OZ WATER 30 MIN BEFORE 1ST MEAL OF THE DAY, REMAIN UPRIGHT FOR 30 MIN AFTER 12 Tablet 03/09/2024 Active Trelegy Ellipta 200-62.5-25 MCG/ACT Aerosol Powder Breath Activated (Fluticasone-Umeclid inium-Vilanterol) Inhale 1 Puff by mouth in the morning. 180 Each 1 05/08/2024 Active Hospital, Clinic, or Other Facility Administered Medication Ordered Dose Route Frequency Start Date End Date Status Albuterol Sulfate (Proventil) (2.5 MG/3ML) 0.083% inhalation solution 2.5 mgIndications:Chronic respiratory failure with hypoxia (HCC),COPD, group D, by GOLD 2017 classification ([facility]) 2.5 mg NEBULIZER PRN 12/06/2023 12/05/2024 Acti ve Albuterol Sulfate (Proventil) (5 MG/ML) 0.5% *conc* inhalation solution 2.5 mgIndications:Chronic respiratory failure with hypoxia (HCC),COPD, group D, by GOLD 2017 classification ([facility]) 2.5 mg NEBULIZER PRN 12/06/2023 12/05/2024 Acti ve documented as of this encounter (statuses as of 05/15/2024) Active Problems Problem Noted Date Diagnosed Date [...] rinse after steroid. Test performed by [facility] BLIND AIDE CPFT Hypertensive kidney disease, stage III 9 [...] as of this encounter (statuses as of 05/15/2024) Resolved Problems Problem Noted Date Diagnosed Date [...] as of this encounter (statuses as of 05/15/2024) Immunizations Name Administration Dates Next Due COVID-19 mRNA, LNP-s, No Pre serve, 2-Dose Series (Mahalo) 05/27/2021,11/21/2020,10/31/2020 Pneumococcal Conjugate Vacc, 13 Valent (Prevnar) [...] on file documented as of this encounter Plan of Treatment Health Maintenance [...] Monitoring 09/14/2020 09/14/2019 CKD PHOS USE SMARTSET 31395 12/10/202211/22, 12/13/2020, 12/11/2014, Additional history exists Albumin/Creatinine [...] Additional history exists CKD HGB USE SMARTSET 39956 08/26/202408/26, 08/26/2023, 05/24/2023, Additional history exists Diabetic [...] D LEVEL ONCE IN A LIFETIME-USE SMARTSET# 67232 Completed 12/10/2021, 03/01/2019, 07/07/2017, Additional history exists [...] Documents on File Type Date Recorded Patient Waiter/Waitress Captain Expl anation DAYA 08/03/2018 POLST Care Teams Crane Assembler Relationship Specialty Start Date End Date Franca Lilly MD PCP - General Internal Medicine 07/03/22 documented as of this encounter
--- OUTSIDE RECORDS SUMMARY | 2024-05-16 13:47 | External Medical Summary | Summary of Care ---
Author Name Unknown Organization [facility] Address [address] [place] [address] Phone [phone] Care Team Providers Care Production Control Coordinator Name Role Phone Franca Hollins MD Primary Care Provider [phone] Reason for Visit * Reason Onset Date Comments Medication Refill Status Check 04/14/2024 Encounter Details Date Type Department Care Team (Late st Contact Info) Description 04/14/2024 Refill [facility] [address] [place] [address] Franca Hollins MD [address] [place] [address] RLS (restless legs syndrome); Persistent insomnia Allergies Active Allergy Reactions Criticality Noted Date Comments 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 Quinolones Other (Please comment) 02/19/2003 Hives Moods- becomes nasty Adhesive Tape Rash 01/29/2014 documented as of this encounter (statuses as of 04/14/2024) Medications Medication Sig Dispensed Refills Start Date End Date Status NEBULIZERS MISCIndications:RESOURCE MANAGER D, 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) portable nebulizer 1 Each 5 01/24/2014 Active Spacer/Aero-Holding Chambers DEVIIndications:RESOURCE MANAGER D, severe (HCC) Use with QVar inhaler 1 Device 3 10/02/2016 Active Blood Pressure Monitoring (BD ASSURE BPM/AUTO ARM CUFF) MISC Check BP daily as needed 1 Each 12/06/2018 Active ONETOUCH DELICA LANCETS 33G MISC USE DIRECTED 4 TIMES A DAY 100 Each 5 07/24/2019 Active Glucose Blood (MirageWorksTOUCH VERIO) STRPIndications:DM type 2, goal: symptom mgmt [...] 11/02/2022 Active Vitamin D (Ergocalciferol) 1.25 MG (86707 UT) Oral Capsule (Drisdol) TAKE 1 CAPSULE BY MOUTH ONE TIME PER WEEK Strength: 1.25 MG (37140 UT) 12 Capsule 1 02/19/2023 Active Additional Information Patient not taking.Reported on 09/23/2023 linaGLIPtin 5 MG Oral Tablet (Tradjenta) TAKE ONE TABLET BY MOUTH EVERY DAY.TO REPLACE JANUVIA 90 Tablet 04/29/2022 Active Nitroglycerin 0.4 MG Sublingual Tablet Sublingual (Nitrostat)Indicati ons:Heart failure, systolic, due to idiopathic cardiomyopathy (HCC) Place 1 Tablet under the tongue every 5 minutes as needed for chest pain. 25 Tablet 5 05/24/2023 Active Fluticasone-Umeclid in-Vilant 200-62.5-25 MCG/ACT Aerosol Powder Breath Activated (Trelegy Ellipta) Inhale 1 Puff by mouth in the morning. 60 Each 11 05/24/2023 Active Potassium Chloride Tegan ER 10 [...] g 3 01/10/2024 01/10/20 25 Active Nystatin 411719 UNIT/GM External CreamIndications:Ca ndidal skin infection APPLY [...] BEDTIME 30 Tablet 04/14/2024 04/14/20 25 Active rOPINIRole HCl 0.25 MG Oral Tablet (Requip)Indications :RLS (restless legs syndrome),Persisten t insomnia TAKE ONE TABLET BY MOUTH EVERY DAY AT BEDTIME 30 Tablet 1 04/06/2023 04/14/20 24 Discontinu ed(Refill) Hospital, Clinic, or Other [...] as of this encounter (statuses as of 04/14/2024) Active Problems Problem Noted Date Diagnosed Date [...] rinse after steroid. Test performed by Loli ELECTRIC POWER LINE REPAIRER CPFT Hypertensive kidney disease, stage III 9 [...] as of this encounter (statuses as of 04/14/2024) Resolved Problems Problem Noted Date Diagnosed Date [...] as of this encounter (statuses as of 04/14/2024) Immunizations Name Administration Dates Next Due COVID-19 mRNA, LNP-s, No Pre serve, 2-Dose Series (VanDyne SuperTurbo) 05/27/2021,11/21/2020,10/31/2020 Pneumococcal Conjugate Vacc, 13 Valent (Prevnar) 12/02/2015 Pneumococcal Polysaccharide PPV23 (Pneumovax) 07/07/2017,08/04/2006 Season Influenza, Quad, PF, Adjuvanted, 65+ Yrs, IM (FLUAD) 08/08/2021 Seasonal Influenza, PF, 6 M & above, IM , (FluLaval or Fluzone) 05/27/2020,05/09/2018 Seasonal Influenza, Quadriva lent Hd (Fluzone Hd) 05/24/2023,06/11/2022 Seasonal Influenza, Quadriva lent, No Preserve, IM 05/23/2019,05/23/2017,05/06/2016,06/05 Seasonal Influenza, Split, I IV3, With Preserve, Inj 06/04/2014,05/25/2013,05/27/2012,06/06,05/27/2009,07/02/2008,07/08/2007 ,06/02/2006 Seasonal Influenza, Trivalen t, High Dose, No Preserve, IM 05/22/2019 TD, Preservative Free 08/03/2018 TDAP (age 10 [...] encounter Miscellaneous Notes * Telephone Encounter - Franca Hollins MD - 04/14/2024 1:42 PM EDTSigned Prescriptions: Disp Refills rOPINIRole HCl 0.25 MG Oral Tablet (Requip)30 Tab*0 Sig: TAKE ONE TABLET BY MOUTH EVERY DAY AT BEDTIME Authorizing Provider: FRANCA HOLLINS * Telephone Encounter - Franca Hollins MD - 04/14/2024 1:42 PM EDTSigned Prescriptions: Disp Refills rOPINIRole HCl 0.25 MG Oral Tablet (Requip)30 Tab*0 Sig: TAKE ONE TABLET BY MOUTH EVERY DAY AT BEDTIME Authorizing Provider: FRANCA HOLLINS * Telephone Encounter - Vero Harrell CPhT - 04/14/2024 1:31 PM EDT Pharmacy is requesting a 90-day supply, pre-edited RXs as such. Please review and approve if appropriate. Pending Prescriptions: Disp Refills rOPINIRole HCl 0.25 MG Oral Tablet (Requi*90 Tab*0 Sig: TAKE ONE TABLET BY MOUTH EVERY DAY AT BEDTIME Last Visit: 08/26/2023 (in office), 05/01/2020 (telemedicine) Visit date not found If no future appointments scheduled, and last appointment is greater than a year ago, please schedule patient for an appointment Last date the medication was ordered: 04/06/23 Patient Phone Numbers Labs: Lab Results Component Value Date/Time CREAT 1.2 (H) 08/26/2023 02:37 PM CREAT 1.5 (H) 2019 03:00 PM POTASSIUM 4.1 08/26/2023 02:37 PM POTASSIUM 4.5 2019 03:00 PM TSH 0.59 05/24/2023 02:17 PM TSH 1.990 10/09/2018 12:00 AM TSH 2.65 08/19/2017 11:41 AM LDLCALC 56 12/10/2021 04:30 PM LDLCALC 62 03/01/2019 01:32 PM LDLDIRECT NOT APPLICABLE 03/01/2019 01:32 PM LDLDIRECT 83 12/11/2014 03:31 PM ALT 17 08/26/2023 02:37 PM ALT 19 03/01/2019 01:32 PM HGBA1C 6.3 (H) 05/24/2023 02:17 PM HGBA1C 7.1 (H) 2019 03:00 PM documented in this encounter Plan of Treatment [...] Monitoring 09/14/2020 09/14/2019 CKD PHOS USE SMARTSET 19988 12/10/202211/22, 12/13/2020, 12/11/2014, Additional history exists COVID-19 Vaccine ( season) 2023 05/27/2021, 11/21/2020, 10/31/2020 Albumin/Creatinine Ratio 06/11/2023 022, 07/07/2017, 12/11/2014, Additional history exists Mammogram 09/09/2023 09/09/2022, 08/23, 12/06/2018, Additional history exists HbA1c 11/23/2023 05/24/2023, 05/24, 12/10/2021, Additional history exists GFR 02/24/2024 08/26/2023, 09/2022, 06/11/2022, Additional history exists Influenza Vaccine (FLU shot) (#1) 2024 05/24/2023, 06/11/2022, 08/08/2021, Additional history exists Diabetic Foot Exam 05/24/2024 05/24/2023, 0 12/10/2021, 09/14/2019, Additional history exists TSH 05/24/2024 05/24/2023, 05/24, 12/10/2021, Additional history exists CKD HGB USE SMARTSET 59315 08/26/202408/26, 08/26/2023, 05/24/2023, Additional history exists Diabetic Eye Exam 08/26/2024 08/26/2023, , 11/25/2017 O2 ASSESSMENT COMPLETED IN PAST YEAR FOR COPD 08/26/2024 08/26/2023 DXA Scan 12/13/2025 12/14/2023, 11/22, 12/07/2018, Additional history exists Lipid Panel 12/10/2026 12/10/2021, 11/22, 03/01/2019, Additional history exists DTaP,Tdap,and Td Vaccines (4 - Td or Tdap) 08/03/2028 08/03/2018, 08/03/2018, 05/16/2008 Pneumococcal Vaccine: 65+ Years Completed 07/07/2017, 12/02/2015, 08/04/2006, Additional history exists Lung Cancer Screening Completed 04/15/2020 , 05/11/2006, 05/03/2003 VITAMIN D LEVEL ONCE IN A LIFETIME-USE SMARTSET# 97063 Completed 12/10/2021, 03/01/2019, 07/07/2017, Additional history exists [...] Not on filedocumented as of this encounter Visit Diagnoses Diagnosis RLS (restless legs syndrome) Restless legs syndrome (RLS) Persistent insomnia Persistent disorder of initiating or maintaining sleep documented in this encounter Advance Directives Documents on File Type Date Recorded Patient Special Police Expl anation DAYA 08/03/2018 POLST Care Teams Production Control Coordinator Relationship Specialty Start Date End Date Franca Hollins MD PCP - General Internal Medicine 07/03/22 documented as of this encounter
--- OUTSIDE RECORDS SUMMARY | 2024-05-16 13:47 | External Medical Summary | Summary of Care ---
Author Name Unknown Organization [facility] Address [address] [place] [address] Phone [phone] Care Team Providers Care Family Medicine Physician Assistant Name Role Phone Franca Lilly MD Primary Care Provider [phone] Reason for Visit * Reason Comments Medication Refill Encounter Details Date Type Department Care Team (Late st Contact Info) Description 05/14/2024 Refill [facility] [address] [place] [address] Franca Lilly MD [address] [place] [address] RLS (restless legs syndrome); Persistent insomnia Allergies Active Allergy Reactions Criticality Noted Date Comments 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 Quinolones Other (Please comment) 02/19/2003 Hives Moods- becomes nasty Adhesive Tape Rash 01/29/2014 documented as of this encounter (statuses as of 05/15/2024) Medications Medication Sig Dispensed Refills Start Date End Date Status NEBULIZERS MISCIndications:PROJECT MANAGER INDUSTRIAL D, 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) portable nebulizer 1 Each 5 01/24/2014 Active Spacer/Aero-Holding Chambers DEVIIndications:PROJECT MANAGER INDUSTRIAL D, severe (HCC) Use with QVar inhaler [...] 11/02/2022 Active Vitamin D (Ergocalciferol) 1.25 MG (95270 UT) Oral Capsule (Drisdol) TAKE 1 CAPSULE BY MOUTH ONE TIME PER WEEK Strength: 1.25 MG (23478 UT) 12 Capsule 1 02/19/2023 Active Additional [...] g 3 01/10/2024 01/10/20 25 Active Nystatin 433408 UNIT/GM External CreamIndications:Ca ndidal skin infection APPLY [...] the morning. 180 Each 1 05/08/2024 Active rOPINIRole HCl 0.25 MG Oral Tablet (Requip)Indications :RLS (restless legs syndrome),Persisten t insomnia TAKE ONE TABLET BY MOUTH EVERY DAY AT BEDTIME 30 Tablet 5 05/15/2024 05/15/20 25 Active rOPINIRole HCl 0.25 MG Oral Tablet (Requip)Indications :RLS (restless legs syndrome),Persisten t insomnia TAKE ONE TABLET BY MOUTH EVERY DAY AT BEDTIME 30 Tablet 04/14/2024 05/14/20 24 Discontinu ed(Refill) Hospital, Clinic, or Other [...] rinse after steroid. Test performed by [facility] COUNTER ROLLER CPFT Hypertensive kidney disease, stage III 9 [...] mRNA, LNP-s, No Pre serve, 2-Dose Series (HouzeMe) 05/27/2021,11/21/2020,10/31/2020 Pneumococcal Conjugate Vacc, 13 Valent (Prevnar) [...] Miscellaneous Notes * Telephone Encounter - Franca Lilly MD - 05/15/2024 9:48 AM EDTSigned Prescriptions: Disp Refills rOPINIRole HCl 0.25 MG Oral Tablet (Requip)30 Tab*5 Sig: TAKE ONE TABLET BY MOUTH EVERY DAY AT BEDTIME Authorizing Provider: FRANCA LILLY * Telephone Encounter - Ksenia Denney LPN - 05/15/2024 9:22 AM EDTPending Prescriptions: Disp Refills rOPINIRole HCl 0.25 MG Oral Tablet (Requip)30 Tab*0 Sig: TAKE ONE TABLET BY MOUTH EVERY DAY AT BEDTIME * Telephone Encounter - Dena Olson - 05/14/2024 5:23 AM EDTPending Prescriptions: Disp Refills rOPINIRole HCl 0.25 MG Oral Tablet (Requip)30 Tab*0 Sig: TAKE ONE TABLET BY MOUTH EVERY DAY AT BEDTIME documented in this encounter Plan of Treatment [...] Monitoring 09/14/2020 09/14/2019 CKD PHOS USE SMARTSET 81978 12/10/202211/22, 12/13/2020, 12/11/2014, Additional history exists Albumin/Creatinine Ratio 06/11/2023 022, 07/07/2017, 12/11/2014, Additional history exists Mammogram 09/09/2023 09/09/2022, 08/23, 12/06/2018, Additional history exists HbA1c 11/23/2023 05/24/2023, 05/24, 12/10/2021, Additional history exists GFR 02/24/2024 08/26/2023, 09/2022, 06/11/2022, Additional history exists COVID-19 Vaccine ( season) 2024 05/27/2021, 11/21/2020, 10/31/2020 Influenza Vaccine (FLU shot) (#1) 2024 05/24/2023, 06/11/2022, 08/08/2021, Additional history exists Diabetic Foot Exam 05/24/2024 05/24/2023, 0 12/10/2021, 09/14/2019, Additional history exists TSH 05/24/2024 05/24/2023, 05/24, 12/10/2021, Additional history exists CKD HGB USE SMARTSET 25070 08/26/202408/26, 08/26/2023, 05/24/2023, Additional history exists Diabetic [...] D LEVEL ONCE IN A LIFETIME-USE SMARTSET# 41882 Completed 12/10/2021, 03/01/2019, 07/07/2017, Additional history exists [...] Documents on File Type Date Recorded Patient Farm Marketer Expl anation POLST 08/03/2018 POLST Care Teams Family Medicine Physician Assistant Relationship Specialty Start Date End Date Franca Lilly MD PCP - General Internal Medicine 07/03/22 documented as of this encounter
--- OUTSIDE RECORDS SUMMARY | 2024-05-16 13:48 | External Medical Summary | Summary of Care ---
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 Quinolones Other (Please comment) 02/19/2003 Hives Moods- becomes nasty Adhesive Tape Rash 01/29/2014 documented as of this encounter (statuses as of 03/11/2024) Medications Medication Sig Dispensed Refills Start Date [...] 11/02/2022 Active Vitamin D (Ergocalciferol) 1.25 MG (09213 UT) Oral Capsule (Drisdol) TAKE 1 CAPSULE BY MOUTH ONE TIME PER WEEK Strength: 1.25 MG (68724 UT) 12 Capsule 1 02/19/2023 Active Additional Information Patient not taking.Reported on 09/23/2023 rOPINIRole HCl 0.25 MG Oral Tablet (Requip)Indications: RLS (restless legs syndrome),Persistent insomnia TAKE ONE TABLET BY MOUTH EVERY DAY AT BEDTIME 30 Tablet 1 04/06/2023 4 Active Nitroglycerin 0.4 MG Sublingual Tablet Sublingual (Nitrostat)Indicatio ns:Heart failure, systolic, due to idiopathic cardiomyopathy (HCC) Place 1 Tablet under the tongue every 5 minutes as needed for chest pain. 25 Tablet 5 05/24/2023 Active Fluticasone-Umeclidi n-Vilant 200-62.5-25 MCG/ACT Aerosol Powder Breath Activated (Trelegy [...] OR OTHER MEDICATIONS 90 Tablet 2 09/16/2023 5 Active Benzonatate 100 MG Oral Capsule (Tessalon [...] MOUTH EVERY MORNING 100 Tablet 3 01/10/2024 Active Albuterol Sulfate HFA 108 (90 Base) MCG/ACT Inhalation Aerosol SolutionIndications: COPD exacerbation (HCC) INHALE TWO PUFFS BY MOUTH FOUR TIMES A DAY 54 g 3 01/10/2024 5 Active Nystatin 314532 UNIT/GM External CreamIndications:Can didal skin infection APPLY [...] CAPSULES AT BEDTIME 360 Capsule 1 02/29/2024 5 Active Alendronate Sodium 70 MG Oral Tablet (Fosamax)Indications :High risk for fracture due to osteoporosis by DEXA scan TAKE 1 TABLET BY MOUTH ONCE A WEEK WITH 8 OZ WATER 30 MIN BEFORE 1ST MEAL OF THE DAY, REMAIN UPRIGHT FOR 30 MIN AFTER 12 Tablet 03/09/2024 Active Hospital, Clinic, or Other Facility Administered Medication Ordered Dose Route Frequency Start Date End Date Status Albuterol Sulfate (Proventil) (2.5 MG/3ML) 0.083% inhalation solution 2.5 mgIndications:Chronic respiratory failure with hypoxia (HCC),COPD, group D, by GOLD 2017 classification ([facility]) 2.5 mg NEBULIZER PRN 12/06/2023 12/05/2024 Acti ve Albuterol Sulfate (Proventil) (5 MG/ML) 0.5% *conc* inhalation solution 2.5 mgIndications:Chronic respiratory failure with hypoxia (HCC),COPD, group D, by GOLD 2017 classification ([facility]) 2.5 mg NEBULIZER PRN 12/06/2023 12/05/2024 Acti ve documented as of this encounter (statuses as of 03/11/2024) Active Problems Problem Noted Date Diagnosed Date [...] rinse after steroid. Test performed by Loli TRAVEL MANAGER CPFT Hypertensive kidney disease, stage III 9 [...] as of this encounter (statuses as of 03/11/2024) Resolved Problems Problem Noted Date Diagnosed Date [...] as of this encounter (statuses as of 03/11/2024) Immunizations Name Administration Dates Next Due COVID-19 mRNA, LNP-s, No Pre serve, 2-Dose Series (Pfizer) 05/27/2021,11/21/2020,10/31/2020 Pneumococcal Conjugate Vacc, 13 Valent (Prevnar) [...] (REFER TO SMARTSET #3291) 12/12/2015 12/11/2014 (Discussed) Zoster Vaccines (3 of 3) 03/07/2019 01/10/2019, 02/21 Depression Monitoring 09/14/2020 09/14/2019 CKD PHOS USE SMARTSET 03900 12/10/202211/22, 12/13/2020, 12/11/2014, Additional history exists COVID-19 Vaccine ( season) 2023 05/27/2021, 11/21/2020, 10/31/2020 Albumin/Creatinine Ratio 06/11/2023 022, 07/07/2017, 12/11/2014, Additional history exists Mammogram 09/09/2023 09/09/2022, 08/23, 12/06/2018, Additional history exists HbA1c 11/23/2023 05/24/2023, 05/24, 12/10/2021, Additional history exists GFR 02/24/2024 08/26/2023, 09/2022, 06/11/2022, Additional history exists *CXR OR CT FOR COPD EVER 03/05/2024 Influenza Vaccine (FLU shot) (#1) 2024 05/24/2023, 06/11/2022, 08/08/2021, Additional history exists Diabetic Foot Exam 05/24/2024 05/24/2023, 0 12/10/2021, 09/14/2019, Additional history exists TSH 05/24/2024 05/24/2023, 05/24, 12/10/2021, Additional history exists CKD HGB USE SMARTSET 12342 08/26/202408/26, 08/26/2023, 05/24/2023, Additional history exists Diabetic [...] D LEVEL ONCE IN A LIFETIME-USE SMARTSET# [id number] Completed 12/10/2021, 03/01/2019, 07/07/2017, Additional history exists [...] Documents on File Type Date Recorded 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
--- OUTSIDE RECORDS SUMMARY | 2024-05-16 13:48 | External Medical Summary | Summary of Care ---
Author Name Unknown Organization [facility] Address [address] [place] [address] Phone [phone] Care Team Providers Care Ordnance Artificer Name Role Phone Franca Lilly MD Primary Care Provider [phone] Encounter Details Date Type Department Care Team (Late st Contact Info) Description 01/04/2024 Telephone [facility] [address] [place] [address] Franca Lilly MD [address] [place] [address] Allergies Active Allergy Reactions Criticality Noted Date Comments 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 Quinolones Other (Please comment) 02/19/2003 Hives Moods- becomes nasty Adhesive Tape Rash 01/29/2014 documented as of this encounter (statuses as of 04/04/2024) Medications Medication Sig Dispensed Refills Start Date [...] 11/02/2022 Active Vitamin D (Ergocalciferol) 1.25 MG (82244 UT) Oral Capsule (Drisdol) TAKE 1 CAPSULE BY MOUTH ONE TIME PER WEEK Strength: 1.25 MG (71208 UT) 12 Capsule 1 02/19/2023 Active Additional [...] MOUTH EVERY MORNING 90 Tablet 3 09/08/2023 Active Budesonide 0.5 MG/2ML Inhalation Suspension (Pulmicort) [...] follow package directions 21 Tablet 01/04/2024 Active Hospital, Clinic, or Other Facility Administered [...] as of this encounter (statuses as of 04/04/2024) Active Problems Problem Noted Date Diagnosed Date [...] rinse after steroid. Test performed by Loli IN MOLD COATER CPFT Hypertensive kidney disease, stage III 9 [...] as of this encounter (statuses as of 04/04/2024) Resolved Problems Problem Noted Date Diagnosed Date [...] as of this encounter (statuses as of 04/04/2024) Immunizations Name Administration Dates Next Due COVID-19 mRNA, LNP-s, No Pre serve, 2-Dose Series (Curves) 05/27/2021,11/21/2020,10/31/2020 Pneumococcal Conjugate Vacc, 13 Valent (Prevnar) [...] Monitoring 09/14/2020 09/14/2019 CKD PHOS USE SMARTSET 69853 12/10/202211/22, 12/13/2020, 12/11/2014, Additional history exists COVID-19 [...] Additional history exists CKD HGB USE SMARTSET 63867 08/26/202408/26, 08/26/2023, 05/24/2023, Additional history exists Diabetic [...] D LEVEL ONCE IN A LIFETIME-USE SMARTSET# 85377 Completed 12/10/2021, 03/01/2019, 07/07/2017, Additional history exists [...] on File Type Date Recorded 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
--- OUTSIDE RECORDS SUMMARY | 2024-05-16 13:48 | External Medical Summary | Summary of Care ---
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 Quinolones Other (Please comment) 02/19/2003 Hives Moods- becomes nasty Adhesive Tape Rash 01/29/2014 documented as of this encounter (statuses as of 03/17/2024) Medications Medication Sig Dispensed Refills Start Date [...] 11/02/2022 Active Vitamin D (Ergocalciferol) 1.25 MG (91609 UT) Oral Capsule (Drisdol) TAKE 1 CAPSULE BY MOUTH ONE TIME PER WEEK Strength: 1.25 MG (94265 UT) 12 Capsule 1 02/19/2023 Active Additional Information Patient not taking.Reported on 09/23/2023 rOPINIRole HCl 0.25 MG Oral Tablet (Requip)Indications: RLS (restless legs syndrome),Persistent insomnia TAKE ONE TABLET BY MOUTH EVERY DAY AT BEDTIME 30 Tablet 1 04/06/2023 Active Nitroglycerin 0.4 MG Sublingual Tablet Sublingual [...] MOUTH EVERY DAY 90 Tablet 3 09/08/2023 Active Montelukast Sodium 10 MG Oral Tablet (Singulair)Indicatio ns:COPD, severe (HCC) TAKE ONE TABLET BY MOUTH EVERY MORNING 90 Tablet 3 09/16/2023 Active Levothyroxine Sodium 75 MCG Oral Tablet [...] TIMES A DAY 54 g 3 01/10/2024 Active Nystatin 972485 UNIT/GM External CreamIndications:Can didal skin infection APPLY [...] as of this encounter (statuses as of 03/17/2024) Active Problems Problem Noted Date Diagnosed Date [...] rinse after steroid. Test performed by Loli SALES SPECIAL AGENT CPFT Hypertensive kidney disease, stage III 9 [...] as of this encounter (statuses as of 03/17/2024) Resolved Problems Problem Noted Date Diagnosed Date [...] as of this encounter (statuses as of 03/17/2024) Immunizations Name Administration Dates Next Due COVID-19 [...] Monitoring 09/14/2020 09/14/2019 CKD PHOS USE SMARTSET 80431 12/10/202211/22, 12/13/2020, 12/11/2014, Additional history exists COVID-19 [...] Additional history exists CKD HGB USE SMARTSET 65212 08/26/202408/26, 08/26/2023, 05/24/2023, Additional history exists Diabetic [...] D LEVEL ONCE IN A LIFETIME-USE SMARTSET# 73421 Completed 12/10/2021, 03/01/2019, 07/07/2017, Additional history exists [...] Documents on File Type Date Recorded 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
--- OUTSIDE RECORDS SUMMARY | 2024-05-16 13:48 | External Medical Summary | Summary of Care ---
Author Name Unknown Organization [facility] Address [address] [place] [address] Phone [phone] Care Team Providers Care Repair Tech Name Role Phone Franca Lilly MD Primary Care Provider Reason for Visit * Reason Comments Medication Refill Encounter Details Date Type Department Care Team (Late st Contact Info) Description 03/08/2024 Refill [facility] [address] [place] [address] Franca Lilly MD [address] [place] [address] Routine medical exam*; High risk for fracture due to osteoporosis by DEXA scan; Diabetes mellitus with stage 3 chronic kidney disease (HCC) Allergies Active Allergy Reactions Criticality Noted Date Comments 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 Quinolones Other (Please comment) 02/19/2003 Hives Moods- becomes nasty Adhesive Tape Rash 01/29/2014 documented as of this encounter (statuses as of 03/17/2024) Medications Medication Sig Dispensed Refills Start Date End Date Status NEBULIZERS MISCIndications: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 CAR 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, 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) portable nebulizer 1 Each 5 01/24/2014 Active Spacer/Aero-Holding Chambers DEVIIndications:NEW CAR 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, severe (HCC) Use with QVar inhaler [...] 11/02/2022 Active Vitamin D (Ergocalciferol) 1.25 MG (61449 UT) Oral Capsule (Drisdol) TAKE 1 CAPSULE BY MOUTH ONE TIME PER WEEK Strength: 1.25 MG (28176 UT) 12 Capsule 1 02/19/2023 Active Additional Information Patient not taking.Reported on 09/23/2023 rOPINIRole HCl 0.25 MG Oral Tablet (Requip)Indications :RLS (restless legs syndrome),Persisten t insomnia TAKE ONE TABLET BY MOUTH EVERY DAY AT BEDTIME 30 Tablet 1 04/06/2023 04/05/20 24 Active Nitroglycerin 0.4 MG Sublingual Tablet Sublingual [...] g 3 01/10/2024 01/10/20 25 Active Nystatin 243315 UNIT/GM External CreamIndications:Ca ndidal skin infection APPLY [...] 30 MIN AFTER 12 Tablet 03/09/2024 Active Alendronate Sodium 70 MG Oral Tablet (Fosamax)Indication s:High risk for fracture due to osteoporosis by DEXA scan TAKE 1 TABLET BY MOUTH ONCE A WEEK WITH 8 OZ WATER 30 MIN BEFORE 1ST MEAL OF THE DAY, REMAIN UPRIGHT FOR 30 MIN AFTER Strength: 70 mg 12 Tablet 1 02/19/2023 03/08/20 24 Discontinu ed(Refill) Hospital, Clinic, or Other [...] rinse after steroid. Test performed by Loli CHAR FILTER TANK TENDER HEAD CPFT Hypertensive kidney disease, stage III 9 [...] mRNA, LNP-s, No Pre serve, 2-Dose Series (Alphion) 05/27/2021,11/21/2020,10/31/2020 Pneumococcal Conjugate Vacc, 13 Valent (Prevnar) 12/02/2015 Pneumococcal Polysaccharide PPV23 (Pneumovax) 07/07/2017,08/04/2006,04/20/2002 Season Influenza, Quad, PF, Adjuvanted, 65+ Yrs, IM (FLUAD) 08/08/2021 Seasonal Influenza, PF, 6 M & above, IM , (FluLaval or Fluzone) 05/27/2020,05/09/2018 Seasonal Influenza, Quadriva lent Hd (Fluzone Hd) 05/24/2023,06/11/2022 Seasonal Influenza, Quadriva lent, No Preserve, IM 05/23/2019,05/23/2017,05/06/2016,06/05 Seasonal Influenza, Split, I IV3, With Preserve, Inj 06/04/2014,05/25/2013,05/27/2012,06/06,05/27/2009,07/02/2008,07/08/2007 ,06/02/2006,07/03/2003,06/15/2002 Seasonal Influenza, Trivalen t, High Dose, No [...] encounter Miscellaneous Notes * Telephone Encounter - Juan Olson - 03/17/2024 2:37 PM EDT Received message from [facility] regarding patient needing an appointment. Patient was notified. Successfully contacted patient and provided [facility] message. * Telephone Encounter - Joao Lopez [facility] - 03/09/2024 11:09 AM EDT Signed Prescriptions: Disp Refills Alendronate Sodium 70 MG Oral Tablet (Fosa*12 Tab*0 Sig: TAKE 1 TABLET BY MOUTH ONCE A WEEK WITH 8 OZ WATER 30 MIN BEFORE 1ST MEAL OF THE DAY, REMAIN UPRIGHT FOR 30 MIN AFTER Authorizing Provider: FRANCA LILLY Ordering User: JOAO LOPEZ * Telephone Encounter - Joao Lopez [facility] - 03/09/2024 11:09 AM EDT Signed Prescriptions: Disp Refills Alendronate Sodium 70 MG Oral Tablet (Fosa*12 Tab*0 Sig: TAKE 1 TABLET BY MOUTH ONCE A WEEK WITH 8 OZ WATER 30 MIN BEFORE 1ST MEAL OF THE DAY, REMAIN UPRIGHT FOR 30 MIN AFTER Authorizing Provider: FRANCA LILLY Ordering User: JOAO LOPEZ * Telephone Encounter - Joao Lopez [facility] - 03/09/2024 11:03 AM EDT Images from the original note were not included. Calc CrCl: 45.7 (Adj BW) Dexa scan showed improvement , compared to previous test in 2019. So please continue current med Please contact patient so that an appointment can be scheduled with her PRIMARY CARE provider. Refill authorized to hold patient over in the mean time. Return in about 3 months (around 11/25/2023) for Clinic Visit. Last Visit: 08/26/2023 (in office), 05/01/2020 (telemedicine) Next Visit: Visit date not found Thank you, Joao Lopez, PharmD Clinical Pharmacist [facility] 03/09/24 11:07 AM [phone] * Telephone Encounter - Kalpana Presley CPhT - 03/08/2024 10:06 AM EDT Did you pend patient's preferred pharmacy and medication before forwarding?yes Pharmacy: [facility] Pending Prescriptions: Disp Refills Alendronate Sodium 70 MG Oral Tablet (Fos*12 Tab*1 Sig: TAKE 1 TABLET BY MOUTH ONCE A WEEK WITH 8 OZ WATER 30 MIN BEFORE 1ST MEAL OF THE DAY, REMAIN UPRIGHT FOR 30 MIN AFTER Strength: 70 mg Last Visit: 08/26/2023 (in office), 05/01/2020 (telemedicine) Next Visit: Visit date not found If no future appointments scheduled, and last appointment is greater than a year ago, please schedule patient for a follow-up appointment Last date the medication was ordered: 02/19/23 Is this request for a controlled substance?No Urine Drug Screen:No results found. However, due to the size of the patient record, not all encounters were searched. Please check Results Review for a complete set of results. Patient Phone Numbers Labs: Lab Results Component [...] documented in this encounter Plan of Treatment Scheduled Orders Name Type Priority Associated Diagnoses Orde r Schedule PHOSPHORUS Lab Routine Routine medical exam Diabetes mellitus with stage 3 chronic kidney disease (HCC) Expected: 03/23/2024 (Approximate), Expires: 03/10/2025 Health Maintenance Due Date Last Done Comments Alpha-1 Antitrypsin 1969 Hepatitis C Screening 1969 Cologuard 1996 Colonoscopy 1996 Sigmoidoscopy 1996 Colorectal Cancer Screening 01/22/2012 Fecal Occult Blood Test 01/22/2012 01/22/20 11, 12/21/2008, 12/03/2007 DISCUSS TOBACCO CESSATION (REFER TO SMARTSET #3291) 12/12/2015 12/11/2014 (Discussed) Zoster Vaccines (3 of 3) 03/07/2019 01/10/2019, 02/21 Depression Monitoring 09/14/2020 09/14/2019 CKD PHOS USE SMARTSET 23278 12/10/202211/22, 12/13/2020, 12/11/2014, Additional history exists COVID-19 [...] Additional history exists CKD HGB USE SMARTSET 82251 08/26/202408/26, 08/26/2023, 05/24/2023, Additional history exists Diabetic [...] D LEVEL ONCE IN A LIFETIME-USE SMARTSET# 67471 Completed 12/10/2021, 03/01/2019, 07/07/2017, Additional history exists [...] as of this encounter Visit Diagnoses Diagnosis Routine medical exam- Primary Routine general medical examination at a health care facility High risk for fracture due to osteoporosis by DEXA scan Osteoporosis, unspecified Diabetes mellitus with stage 3 chronic kidney disease (HCC) Type II or unspecified type diabetes mellitus with renal manifestations, not stated as uncontrolled documented in this encounter Advance Directives Documents on File Type Date Recorded 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
--- OUTSIDE RECORDS SUMMARY | 2024-05-16 13:48 | External Medical Summary | Summary of Care ---
Author Name Unknown Organization [facility] Address [address] [place] [address] Phone [phone] Care Team Providers Care Mandolin Repairer Name Role Phone Franca Lilly MD Primary Care Provider Reason for Visit * Reason Comments Medication Refill Encounter Details Date Type Department Care Team (Late st Contact Info) Description 03/08/2024 Refill [facility] [address] [place] [address] Franca Lilly MD [address] [place] [address] Routine medical exam*; High risk for fracture due to osteoporosis by DEXA scan; Diabetes mellitus with stage 3 chronic kidney disease (HCC) Allergies Active Allergy Reactions Criticality Noted Date Comments 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 Quinolones Other (Please comment) 02/19/2003 Hives Moods- becomes nasty Adhesive Tape Rash 01/29/2014 documented as of this encounter (statuses as of 03/09/2024) Medications Medication Sig Dispensed Refills Start Date End Date Status NEBULIZERS MISCIndications: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 Test performed by Loli RANGELAND MANAGEMENT SPECIALIST CPFT Hypertensive kidney disease, stage III 9 [...] as of this encounter (statuses as of 03/09/2024) Resolved Problems Problem Noted Date Diagnosed Date [...] as of this encounter (statuses as of 03/09/2024) Immunizations Name Administration Dates Next Due COVID-19 mRNA, LNP-s, No Pre serve, 2-Dose Series (Bubble & Balm) 05/27/2021,11/21/2020,10/31/2020 Pneumococcal Conjugate Vacc, 13 Valent (Prevnar) [...] encounter Miscellaneous Notes * Telephone Encounter - Joao Lopez [facility] - 03/09/2024 11:09 AM EDT Signed Prescriptions: Disp Refills Alendronate Sodium 70 MG Oral Tablet (Fosa*12 Tab*0 Sig: TAKE 1 TABLET BY MOUTH ONCE A WEEK WITH 8 OZ WATER 30 MIN BEFORE 1ST MEAL OF THE DAY, REMAIN UPRIGHT FOR 30 MIN AFTER Authorizing Provider: FRANCA LILLY Ordering User: JOAO LOPEZ * Telephone Encounter - Joao Lopez [facility] - 03/09/2024 11:09 AM EDT Signed Prescriptions: Disp Refills Alendronate Sodium 70 MG Oral Tablet (Fosa*12 Tab*0 Sig: TAKE 1 TABLET BY MOUTH ONCE A WEEK WITH 8 OZ WATER 30 MIN BEFORE 1ST MEAL OF THE DAY, REMAIN UPRIGHT FOR 30 MIN AFTER Authorizing Provider: FRANCA LILLY Ordering User: JOAO LOPEZ * Telephone Encounter - Joao Lopez [facility] - 03/09/2024 11:03 AM EDT Images from [...] [facility] ([facility]) 03/09/24 11:07 AM [phone] * Telephone Encounter - Kalpana Presley CPhT - 03/08/2024 10:06 AM EDT Did you pend patient's preferred pharmacy and medication before forwarding?yes Pharmacy: [facility] Pending Prescriptions: Disp Refills [...] Monitoring 09/14/2020 09/14/2019 CKD PHOS USE SMARTSET 08220 12/10/202211/22, 12/13/2020, 12/11/2014, Additional history exists COVID-19 [...] Additional history exists CKD HGB USE SMARTSET 25932 08/26/202408/26, 08/26/2023, 05/24/2023, Additional history exists Diabetic [...] D LEVEL ONCE IN A LIFETIME-USE SMARTSET# 50928 Completed 12/10/2021, 03/01/2019, 07/07/2017, Additional history exists [...] Documents on File Type Date Recorded 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
--- OUTSIDE RECORDS SUMMARY | 2024-05-16 13:48 | External Medical Summary | Summary of Care ---
Author Name Unknown Organization [facility] Address [address] [place] [address] Phone [phone] Care Team Providers Care Enterprise Security Architect Name Role Phone Franca Lilly MD Primary Care Provider [phone] Reason for Visit * Reason Comments Medication Refill Encounter Details Date Type Department Care Team (Late st Contact Info) Description 03/05/2024 Refill Otolaryngology [facility] [address] [facility] CAROLINE SIMPSON [id number] Leonel Arboleda DO [address] [facility] [place] [address] Allergies Active Allergy Reactions Criticality Noted Date Comments 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 Quinolones Other (Please comment) 02/19/2003 Hives Moods- becomes nasty Adhesive Tape Rash 01/29/2014 documented as of this encounter (statuses as of 03/08/2024) Medications Medication Sig Dispensed Refills Start Date [...] 11/02/2022 Active Vitamin D (Ergocalciferol) 1.25 MG (96493 UT) Oral Capsule (Drisdol) TAKE 1 CAPSULE BY MOUTH ONE TIME PER WEEK Strength: 1.25 MG (63108 UT) 12 Capsule 1 02/19/2023 Active Additional Information Patient not taking.Reported on 09/23/2023 Alendronate Sodium 70 MG Oral Tablet (Fosamax)Indications :High risk for fracture due to osteoporosis by DEXA scan TAKE 1 TABLET BY MOUTH ONCE A WEEK WITH 8 OZ WATER 30 MIN BEFORE 1ST MEAL OF THE DAY, REMAIN UPRIGHT FOR 30 MIN AFTER Strength: 70 mg 12 Tablet 1 02/19/2023 Active rOPINIRole HCl 0.25 MG Oral Tablet (Requip)Indications: [...] MOUTH EVERY MORNING 90 Tablet 3 09/06/2023 5 Active Atorvastatin Calcium 40 MG Oral Tablet [...] 54 g 3 01/10/2024 5 Active Nystatin 743702 UNIT/GM External CreamIndications:Can didal skin infection APPLY TO AFFECTED AREA(S) TWICE A DAY FOR 2 WEEKS 60 g 5 01/21/2024 Active Atenolol 25 MG Oral Tablet (Tenormin)Indication s:HTN, goal below 140/90,Heart failure, systolic, due to idiopathic cardiomyopathy (HCC) TAKE ONE TABLET BY MOUTH EVERY MORNING 90 Tablet 1 02/28/2024 5 Active Gabapentin 300 MG Oral Capsule (Neurontin)Indicatio ns:Pain of left thigh TAKE 1 CAPSULE BY MOUTH EVERY MORNING AND AT NOON AND TAKE 2 CAPSULES AT BEDTIME 360 Capsule 1 02/29/2024 5 Active Hospital, Clinic, or Other Facility Administered Medication Ordered Dose Route Frequency Start Date End Date Status Albuterol Sulfate (Proventil) (2.5 MG/3ML) 0.083% inhalation solution 2.5 mgIndications:Chronic respiratory failure with hypoxia (HCC),COPD, group D, by GOLD 2017 classification ([facility]) 2.5 mg NEBULIZER PRN 12/06/2023 12/05/2024 Acti ve Albuterol Sulfate (Proventil) (5 MG/ML) 0.5% *conc* inhalation solution 2.5 mgIndications:Chronic respiratory failure with hypoxia (HCC),COPD, group D, by GOLD 2017 classification (HCC) 2.5 mg NEBULIZER PRN 12/06/2023 12/05/2024 Acti ve documented as of this encounter (statuses as of 03/08/2024) Active Problems Problem Noted Date Diagnosed Date [...] rinse after steroid. 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 Chronic rhinitis 04/17/2016 02/16/2017 Chronic sinusitis 01/21/2016 [...] as of this encounter (statuses as of 03/08/2024) Immunizations Name Administration Dates Next Due COVID-19 [...] encounter Miscellaneous Notes * Telephone Encounter - Candi Rey CPhT - 03/08/2024 9:29 AM EDTNo prescriptions requested or ordered in this encounter * Telephone Encounter - Tahmina Mcintosh LPN - 03/06/2024 9:22 AM EDTPending Prescriptions: Disp Refills Budesonide 0.5 MG/2ML Inhalation Suspensio*360 mL 1 Sig: PLACE ONE RESPULE INTO 240 ML OF SALINE IN URIAH MED BOTTLE AND IRRIGATE NOSE TWICE DAILY * Telephone Encounter - Tahmina Mcintosh LPN - 03/06/2024 9:20 AM EDT Pending Prescriptions: Disp Refills Budesonide 0.5 MG/2ML Inhalation Suspensi*360 mL 1 Sig: PLACE ONE RESPULE INTO 240 ML OF SALINE IN URIAH MED BOTTLE AND IRRIGATE NOSE TWICE DAILY 04/07/2016 (in office), 01/23/2020 (telemedicine) Visit date not found documented in this encounter Plan of Treatment [...] Monitoring 09/14/2020 09/14/2019 CKD PHOS USE SMARTSET 62085 12/10/202211/22, 12/13/2020, 12/11/2014, Additional history exists COVID-19 [...] Additional history exists CKD HGB USE SMARTSET 01587 08/26/202408/26, 08/26/2023, 05/24/2023, Additional history exists Diabetic [...] D LEVEL ONCE IN A LIFETIME-USE SMARTSET# 41618 Completed 12/10/2021, 03/01/2019, 07/07/2017, Additional history exists [...] Documents on File Type Date Recorded Patient Commercial Correspondent Expl anation POL 08/03/2018 POLST Care Teams Enterprise Security Architect Relationship Specialty Start Date End Date Franca Lilly MD PCP - General Internal Medicine 07/03/22 documented as of this encounter
--- OUTSIDE RECORDS SUMMARY | 2024-05-16 13:49 | External Medical Summary | Summary of Care ---
Author Name Unknown Organization [facility] Address [address] [place] [address] Phone [phone] Care Team Providers Care Roving Tester Laboratory Name Role Phone Franca Lilly MD Primary Care Provider [phone] Reason for Visit * Reason Comments Medication Refill Encounter Details Date Type Department Care Team (Late st Contact Info) Description 02/29/[address] [facility] [address] [place] [address] Franca Lilly MD [address] [place] [address] Pain of left thigh Allergies Active Allergy Reactions Criticality Noted Date Comments 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 Quinolones Other (Please comment) 02/19/2003 Hives Moods- becomes nasty Adhesive Tape Rash 01/29/2014 documented as of this encounter (statuses as of 02/29/2024) Medications Medication Sig Dispensed Refills Start Date End Date Status NEBULIZERS MISCIndications:CENTRIFUGAL MACHINE TENDER D, 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) portable nebulizer 1 Each 5 01/24/2014 Active Spacer/Aero-Holding Chambers DEVIIndications:CENTRIFUGAL MACHINE TENDER D, severe (HCC) Use with QVar inhaler [...] 11/02/2022 Active Vitamin D (Ergocalciferol) 1.25 MG (80194 UT) Oral Capsule (Drisdol) TAKE 1 CAPSULE BY MOUTH ONE TIME PER WEEK Strength: 1.25 MG (02473 UT) 12 Capsule 1 02/19/2023 Active Additional Information Patient not taking.Reported on 09/23/2023 Alendronate Sodium 70 MG Oral Tablet (Fosamax)Indication [...] g 3 01/10/2024 01/10/20 25 Active Nystatin 965593 UNIT/GM External CreamIndications:Ca ndidal skin infection APPLY [...] 360 Capsule 1 02/29/2024 02/29/20 25 Active Gabapentin 300 MG Oral Capsule (Neurontin)Indicati ons:Pain of left thigh TAKE 1 CAPSULE BY MOUTH EVERY MORNING AND AT NOON AND TAKE 2 CAPSULES AT BEDTIME 360 Capsule 1 09/08/2023 02/29/20 24 Discontinu ed(Refill) Hospital, Clinic, or Other [...] as of this encounter (statuses as of 02/29/2024) Active Problems Problem Noted Date Diagnosed Date [...] rinse after steroid. Test performed by [facility] ORDER FILLER CPFT Hypertensive kidney disease, stage III 9 [...] as of this encounter (statuses as of 02/29/2024) Resolved Problems Problem Noted Date Diagnosed Date [...] as of this encounter (statuses as of 02/29/2024) Immunizations Name Administration Dates Next Due COVID-19 mRNA, LNP-s, No Pre serve, 2-Dose Series ([employer]) 05/27/2021,11/21/2020,10/31/2020 Pneumococcal Conjugate Vacc, 13 Valent (Prevnar) [...] Telephone Encounter - Franca Lilly MD - 02/29/2024 11:10 AM EDTSigned Prescriptions: Disp Refills Gabapentin 300 MG Oral Capsule (Neurontin) 360 Ca*1 Sig: TAKE 1 CAPSULE BY MOUTH EVERY MORNING AND AT NOON AND TAKE 2 CAPSULES AT BEDTIME Authorizing Provider: FRANCA LILLY * Telephone Encounter - Ksenia Denney LPN - 02/29/2024 9:57 AM EDTPending Prescriptions: Disp Refills Gabapentin 300 MG Oral Capsule (Neurontin) 360 Ca*1 Sig: TAKE 1 CAPSULE BY MOUTH EVERY MORNING AND AT NOON AND TAKE 2 CAPSULES AT BEDTIME * Telephone Encounter - Dena Olson - 02/29/2024 8:26 AM EDTPending Prescriptions: Disp Refills Gabapentin 300 MG Oral Capsule (Neurontin) 360 Ca*1 Sig: TAKE 1CAPSULE BY MOUTH EVERY MORNING AND AT NOON AND TAKE 2 CAPSULES AT BEDTIME documented in this encounter Plan [...] Monitoring 09/14/2020 09/14/2019 CKD PHOS USE SMARTSET 59135 12/10/202211/22, 12/13/2020, 12/11/2014, Additional history exists COVID-19 [...] Additional history exists CKD HGB USE SMARTSET 80921 08/26/202408/26, 08/26/2023, 05/24/2023, Additional history exists Diabetic [...] D LEVEL ONCE IN A LIFETIME-USE SMARTSET# 08157 Completed 12/10/2021, 03/01/2019, 07/07/2017, Additional history exists [...] as of this encounter Visit Diagnoses Diagnosis Pain of left thigh Pain in limb documented in this encounter Advance Directives Documents on File Type Date Recorded Patient Cleaning And Maintenance Worker Expl anation DAYA 08/03/2018 POLST Care Teams Roving Tester Laboratory Relationship Specialty Start Date End Date Franca Lilly MD PCP - General Internal Medicine 07/03/22 documented as of this encounter
--- OUTSIDE RECORDS SUMMARY | 2024-05-16 13:49 | External Medical Summary | Summary of Care ---
Author Name Unknown Organization [facility] Address [address] [place] [address] Phone [phone] Care Team Providers Care Merchant Banker Name Role Phone Franca Lilly MD Primary Care Provider [phone] Encounter Details Date Type Department Care Team (Late st Contact Info) Description 01/11/2024 Population Health External Data Unspecified Department Allergies Active Allergy Reactions Criticality Noted Date Comments Morphine And Related 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 Quinolones Other (Please comment) 02/19/2003 Hives Moods- becomes nasty Adhesive Tape Rash 01/29/2014 documented as of this encounter (statuses as of 01/12/2024) Medications Medication Sig Dispensed Refills Start Date [...] 11/02/2022 Active Vitamin D (Ergocalciferol) 1.25 MG (75996 UT) Oral Capsule (Drisdol) TAKE 1 CAPSULE BY MOUTH ONE TIME PER WEEK Strength: 1.25 MG (62842 UT) 12 Capsule 1 02/19/2023 Active Additional [...] EVERY MORNING 90 Tablet 3 09/06/2023 Active Atenolol 25 MG Oral Tablet (Tenormin)Indication s:HTN, goal below 140/90,Heart failure, systolic, due to idiopathic cardiomyopathy (HCC) TAKE ONE TABLET BY MOUTH EVERY MORNING 90 Tablet 1 09/06/2023 Active Atorvastatin Calcium 40 MG Oral [...] DAY 90 Tablet 3 09/08/2023 5 Active Gabapentin 300 MG Oral Capsule (Neurontin)Indicatio ns:Pain of left thigh TAKE 1 CAPSULE BY MOUTH EVERY MORNING AND AT NOON AND TAKE 2 CAPSULES AT BEDTIME 360 Capsule 1 09/08/2023 5 Active Montelukast Sodium 10 MG [...] MORNING 90 Tablet 3 10/11/2023 5 Active Nystatin 384491 UNIT/GM External CreamIndications:Can didal skin infection APPLY TO AFFECTED AREA(S) TWICE A DAY FOR 2 WEEKS 60 g 1 11/26/2023 Active linaGLIPtin 5 MG Oral Tablet (Tradjenta) Take 1 Tablet by mouth in the morning. 90 Tablet 3 12/14/2023 Active Clotrimazole 10 MG Mouth/Throat Krunal (Mycelex Krunal)Indications:T hrush DISSOLVE 1 KRUNAL IN MOUTH 5 TIMES A DAY NEEDED FOR THRUSH 60 Krunal 1 12/16/2023 Active Amoxicillin-Pot Clavulanate 875-125 MG Oral Tablet (Augmentin)Indicatio ns:COPD, group D, by GOLD 2017 classification ([facility]) Take 1 Tablet by mouth in the morning and 1 Tablet before bedtime. Do all this for 7 days. COPD rescue kit. 14 Tablet 12/31/2023 4 Active methylPREDNISolone 4 MG Oral Tablet Therapy [...] DAY 54 g 3 01/10/2024 5 Active Hospital, Clinic, or Other Facility Administered Medication Ordered Dose Route Frequency Start Date End Date Status Albuterol Sulfate (Proventil) (2.5 MG/3ML) 0.083% inhalation solution 2.5 mgIndications:Chronic respiratory failure with hypoxia (HCC),COPD, group D, by GOLD 2017 classification ([facility]) 2.5 mg NEBULIZER PRN 12/06/2023 12/05/2024 Acti ve Albuterol Sulfate (Proventil) (5 MG/ML) 0.5% *conc* inhalation solution 2.5 mgIndications:Chronic respiratory failure with hypoxia (HCC),COPD, group D, by GOLD 2017 classification (HCC) 2.5 mg NEBULIZER PRN 12/06/2023 12/05/2024 Acti ve documented as of this encounter (statuses as of 01/12/2024) Active Problems Problem Noted Date Diagnosed Date [...] rinse after steroid. Test performed by [facility] CONGRESSIONAL AIDE CPFT Hypertensive kidney disease, stage III [...] as of this encounter (statuses as of 01/12/2024) Resolved Problems Problem Noted Date Diagnosed Date [...] as of this encounter (statuses as of 01/12/2024) Immunizations Name Administration Dates Next Due COVID-19 [...] 08/03/2018 TDAP (age 10 and older)(Boostrix) 08/03/2018 TDAP (age 11 and older)(Adacel) 05/16/2008 Varicella Zoster Vaccine (Adult) 03/18/2018 Zoster [...] Vaccines (3 of 3) 03/07/2019 01/10/2019, 02/21 CKD PHOS USE SMARTSET 72901 12/10/202211/22, 12/13/2020, 12/11/2014, Additional history exists COVID-19 Vaccine ( season) 2023 05/27/2021, 11/21/2020, 10/31/2020 Albumin/Creatinine Ratio 06/11/2023 022, 07/07/2017, 12/11/2014, Additional history exists Mammogram 09/09/2023 09/09/2022, 08/23, 12/06/2018, Additional history exists HbA1c 11/23/2023 05/24/2023, 05/24, 12/10/2021, Additional history exists GFR 02/24/2024 08/26/2023, 09/2022, 06/11/2022, Additional history exists Diabetic Foot Exam 05/24/2024 05/24/2023, 0 12/10/2021, 09/14/2019, Additional history exists TSH 05/24/2024 05/24/2023, 05/24, 12/10/2021, Additional history exists CKD HGB USE SMARTSET 58437 08/26/202408/26, 08/26/2023, 05/24/2023, Additional history exists Diabetic Eye Exam 08/26/2024 08/26/2023, , 11/25/2017 O2 ASSESSMENT COMPLETED IN PAST YEAR FOR COPD 08/26/2024 08/26/2023 DXA Scan 12/13/2025 12/14/2023, 11/21, 12/24/2014, Additional history exists Lipid Panel 12/10/2026 12/10/2021, 11/22, 03/01/2019, Additional history exists DTaP,Tdap,and Td Vaccines (4 - Td or Tdap) 08/03/2028 08/03/2018, 08/03/2018, 05/16/2008 Pneumococcal Vaccine: 65+ Years Completed 07/07/2017, 12/02/2015, 08/04/2006, Additional history exists Lung Cancer Screening Completed 04/15/2020 , 05/11/2006, 05/03/2003 VITAMIN D LEVEL ONCE IN A LIFETIME-USE SMARTSET# 28084 Completed 12/10/2021, 03/01/2019, 07/07/2017, Additional history exists Influenza Vaccine (FLU shot) Completed 09/2022, 06/11/2022, 08/08/2021, Additional history exists GARDASIL-HPV IMMUNIZATION SERIES Aged Out No longer eligible based on patient's age to complete this topic Hepatitis B Aged Out No longer eligi ble based on patient's age to complete this topic MENINGOCOCCAL (MENACTRA/MENVEO) Aged Out No longer eligible based on patient's age to complete this topic documented as of this encounter Medical Devices Not on filedocumented as of this encounter Advance Directives Documents on File Type Date Recorded Patient Record Clerk Expl anation POLST 08/03/2018 POLST Care Teams Merchant Banker Relationship Specialty Start Date End Date Franca Lilly MD PCP - General Internal Medicine 07/03/22 documented as of this encounter
--- OUTSIDE RECORDS SUMMARY | 2024-05-16 13:49 | External Medical Summary | Summary of Care ---
Author Name Unknown Organization [facility] Address [address] [place] [address] Phone [phone] Care Team Providers Care Radio Tower Technician Name Role Phone Franca Lilly MD Primary Care Provider [phone] Reason for Visit * Reason Comments Medication Refill Encounter Details Date Type Department Care Team (Late st Contact Info) Description 02/26/2024 Refill [facility] [address] [place] [address] Franca Lilly MD [address] [place] [address] HTN, goal below 140/90; Heart failure, systolic, due to idiopathic cardiomyopathy (HCC) Allergies Active Allergy Reactions Criticality Noted Date Comments 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 Quinolones Other (Please comment) 02/19/2003 Hives Moods- becomes nasty Adhesive Tape Rash 01/29/2014 documented as of this encounter (statuses as of 02/28/2024) Medications Medication Sig Dispensed Refills Start Date End Date Status NEBULIZERS MISCIndications:BLOOD BANK TECHNICIAN D, 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) portable nebulizer 1 Each 5 01/24/2014 Active Spacer/Aero-Holding Chambers DEVIIndications:BLOOD BANK TECHNICIAN D, severe (HCC) Use with QVar inhaler [...] 11/02/2022 Active Vitamin D (Ergocalciferol) 1.25 MG (81129 UT) Oral Capsule (Drisdol) TAKE 1 CAPSULE BY MOUTH ONE TIME PER WEEK Strength: 1.25 MG (53529 UT) 12 Capsule 1 02/19/2023 Active Additional [...] 90 Tablet 3 09/08/2023 09/07/19 25 Active Gabapentin 300 MG Oral Capsule (Neurontin)Indicati ons:Pain of left thigh TAKE 1 CAPSULE BY MOUTH EVERY MORNING AND AT NOON AND TAKE 2 CAPSULES AT BEDTIME 360 Capsule 1 09/08/2023 09/07/19 25 Active Montelukast Sodium 10 [...] g 3 01/10/2024 01/10/20 25 Active Nystatin 984462 UNIT/GM External CreamIndications:Ca ndidal skin infection APPLY TO AFFECTED AREA(S) TWICE A DAY FOR 2 WEEKS 60 g 5 01/21/2024 Active Atenolol 25 MG Oral Tablet (Tenormin)Indicatio ns:HTN, goal below 140/90,Heart failure, systolic, due to idiopathic cardiomyopathy (HCC) TAKE ONE TABLET BY MOUTH EVERY MORNING 90 Tablet 1 02/28/2024 02/28/20 25 Active Atenolol 25 MG Oral Tablet (Tenormin)Indicatio ns:HTN, goal below 140/90,Heart failure, systolic, due to idiopathic cardiomyopathy (HCC) TAKE ONE TABLET BY MOUTH EVERY MORNING 90 Tablet 1 09/06/2023 02/26/20 24 Discontinu ed(Refill) Hospital, Clinic, or Other [...] as of this encounter (statuses as of 02/28/2024) Active Problems Problem Noted Date Diagnosed Date [...] rinse after steroid. Test performed by [facility] EXTRACTOR MACHINE OPERATOR CPFT Hypertensive kidney disease, stage III 9 [...] as of this encounter (statuses as of 02/28/2024) Resolved Problems Problem Noted Date Diagnosed Date [...] as of this encounter (statuses as of 02/28/2024) Immunizations Name Administration Dates Next Due COVID-19 mRNA, LNP-s, No Pre serve, 2-Dose Series ([employer]) 05/27/2021,11/21/2020,10/31/2020 Pneumococcal Conjugate Vacc, 13 Valent (Prevnar) [...] Miscellaneous Notes * Telephone Encounter - Samina Oakley [facility] - 02/28/2024 8:45 AM EDTSigned Prescriptions: Disp Refills Atenolol 25 MG Oral Tablet (Tenormin) 90 Tab*1 Sig: TAKE ONE TABLET BY MOUTH EVERY MORNINGAuthorizing Provider: Imer LILLY User: SAMINA OAKLEY------- documented in this encounter Plan of Treatment [...] Monitoring 09/14/2020 09/14/2019 CKD PHOS USE SMARTSET 46536 12/10/202211/22, 12/13/2020, 12/11/2014, Additional history exists COVID-19 [...] Additional history exists CKD HGB USE SMARTSET 23924 08/26/202408/26, 08/26/2023, 05/24/2023, Additional history exists Diabetic [...] D LEVEL ONCE IN A LIFETIME-USE SMARTSET# 45940 Completed 12/10/2021, 03/01/2019, 07/07/2017, Additional history exists [...] as of this encounter Visit Diagnoses Diagnosis HTN, goal below 140/90 Unspecified essential hypertension Heart failure, systolic, due to idiopathic cardiomyopathy (HCC) Unspecified systolic heart failure documented in this encounter Advance Directives Documents on File Type Date Recorded Patient Sole Leveling Machine Operator Expl anation POL 08/03/2018 POLST Care Teams Radio Tower Technician Relationship Specialty Start Date End Date Franca Lilly MD PCP - General Internal Medicine 07/03/22 documented as of this encounter
--- OUTSIDE RECORDS SUMMARY | 2024-05-16 13:49 | External Medical Summary | Summary of Care ---
Author Name Unknown Organization [facility] Address [address] [place] [address] Phone [phone] Care Team Providers Care Inflated Ball Molder Name Role Phone Franca Lilly MD Primary Care Provider Reason for Visit * Reason Comments Medication Refill Encounter Details Date Type Department Care Team (Late st Contact Info) Description 01/21/2024 Refill [facility] [address] [place] [address] Franca Lilly MD [address] [place] [address] Candidal skin infection Allergies Active Allergy Reactions Criticality Noted Date Comments 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 Quinolones Other (Please comment) 02/19/2003 Hives Moods- becomes nasty Adhesive Tape Rash 01/29/2014 documented as of this encounter (statuses as of 01/21/2024) Medications Medication Sig Dispensed Refills Start Date End Date Status NEBULIZERS MISCIndications:INDUSTRIAL LOCOMOTIVE OPERATOR D, 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) portable nebulizer 1 Each 5 01/24/2014 Active Spacer/Aero-Holding Chambers DEVIIndications:INDUSTRIAL LOCOMOTIVE OPERATOR D, severe (HCC) Use with QVar [...] 11/02/2022 Active Vitamin D (Ergocalciferol) 1.25 MG (49672 UT) Oral Capsule (Drisdol) TAKE 1 CAPSULE BY MOUTH ONE TIME PER WEEK Strength: 1.25 MG (74274 UT) 12 Capsule 1 02/19/2023 Active Additional [...] 90 Tablet 3 09/06/2023 09/05/19 25 Active Atenolol 25 MG Oral Tablet (Tenormin)Indicatio ns:HTN, goal below 140/90,Heart failure, systolic, due to idiopathic cardiomyopathy (HCC) TAKE ONE TABLET BY MOUTH EVERY MORNING 90 Tablet 1 09/06/2023 09/05/19 25 Active Atorvastatin Calcium 40 [...] g 3 01/10/2024 01/10/20 25 Active Nystatin 493894 UNIT/GM External CreamIndications:Ca ndidal skin infection APPLY TO AFFECTED AREA(S) TWICE A DAY FOR 2 WEEKS 60 g 5 01/21/2024 Active Nystatin 934064 UNIT/GM External CreamIndications:Ca ndidal skin infection APPLY TO AFFECTED AREA(S) TWICE A DAY FOR 2 WEEKS 60 g 1 11/26/2023 01/21/20 24 Discontinu ed(Refill) Hospital, Clinic, or Other [...] as of this encounter (statuses as of 01/21/2024) Active Problems Problem Noted Date Diagnosed Date [...] rinse after steroid. Test performed by Loli CHINESE TEACHER CPFT Hypertensive kidney disease, stage III 9 [...] as of this encounter (statuses as of 01/21/2024) Resolved Problems Problem Noted Date Diagnosed Date [...] as of this encounter (statuses as of 01/21/2024) Immunizations Name Administration Dates Next Due COVID-19 mRNA, LNP-s, No Pre serve, 2-Dose Series (Eveo) 05/27/2021,11/21/2020,10/31/2020 Pneumococcal Conjugate Vacc, 13 Valent (Prevnar) [...] Telephone Encounter - Franca Lilly MD - 01/21/2024 12:36 PM EDTSigned Prescriptions: Disp Refills Nystatin 908940 UNIT/GM External Cream 60 g 5 Sig: APPLY TO AFFECTED AREA(S) TWICE A DAY FOR 2 WEEKS Authorizing Provider: FRANCA LILLY * Telephone Encounter - Jessica Avelar, [facility] [employer] - 01/21/2024 12:27 PM EDT Pending Prescriptions: Disp Refills Nystatin 399210 UNIT/GM External Cream 60 g 1 Sig: APPLY TO AFFECTED AREA(S) TWICE A DAY FOR 2 WEEKS * Telephone Encounter - Jessica Avelar MED ASSIST - 01/21/2024 12:27 PM EDT Did you pend patient's preferred pharmacy and medication before forwarding?yes Pharmacy: [facility] Pending Prescriptions: Disp Refills Nystatin 777312 UNIT/GM External Cream 60 g 1 Sig: APPLY TO AFFECTED AREA(S) TWICE A DAY FOR 2 WEEKS Last Visit: 08/26/2023 (in office), 05/01/2020 (telemedicine) Next Visit: Visit date not found If no future appointments scheduled, and last appointment is greater than a year ago, please schedule patient for a follow-up appointment Last date the medication was ordered: 11/26/2023 Is this request for a controlled substance?No [...] PM HGBA1C 7.1 (H) 2019 03:00 PM * Telephone Encounter - Dena Olson - 01/21/2024 12:23 PM EDTPending Prescriptions: Disp Refills Nystatin 277756 UNIT/GM External Cream 60 g 1 Sig: APPLY TO AFFECTED AREA(S) TWICE A DAY FOR 2 WEEKS documented in this encounter Plan of Treatment Health Maintenance Due Date Last Done Comments Alpha-1 Antitrypsin 1969 Hepatitis C Screening 1969 Cologuard 1996 Colonoscopy 1996 Sigmoidoscopy 1996 Colorectal Cancer Screening 01/22/2012 Fecal Occult Blood Test 01/22/2012 01/22/20 11, 12/21/2008, 12/03/2007 DISCUSS TOBACCO CESSATION (REFER TO SMARTSET #3291) 12/12/2015 12/11/2014 (Discussed) Zoster Vaccines (3 of 3) 03/07/2019 01/10/2019, 02/21 CKD PHOS USE SMARTSET 47595 12/10/202211/22, 12/13/2020, 12/11/2014, Additional history exists COVID-19 [...] Additional history exists CKD HGB USE SMARTSET 64799 08/26/202408/26, 08/26/2023, 05/24/2023, Additional history exists Diabetic [...] D LEVEL ONCE IN A LIFETIME-USE SMARTSET# 97147 Completed 12/10/2021, 03/01/2019, 07/07/2017, Additional history exists [...] as of this encounter Visit Diagnoses Diagnosis Candidal skin infection Candidiasis of skin and nails documented in this encounter Advance Directives Documents on File Type Date Recorded Patient Pillar Man Expl anation POLST 08/03/2018 POLST Care Teams Inflated Ball Molder Relationship Specialty Start Date End Date Franca Lilly MD PCP - General Internal Medicine 07/03/22 documented as of this encounter
--- OUTSIDE RECORDS SUMMARY | 2024-05-16 13:49 | External Medical Summary | Summary of Care ---
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 Quinolones Other (Please comment) 02/19/2003 Hives Moods- becomes nasty Adhesive Tape Rash 01/29/2014 documented as of this encounter (statuses as of 02/15/2024) Medications Medication Sig Dispensed Refills Start Date [...] 11/02/2022 Active Vitamin D (Ergocalciferol) 1.25 MG (65557 UT) Oral Capsule (Drisdol) TAKE 1 CAPSULE BY MOUTH ONE TIME PER WEEK Strength: 1.25 MG (94224 UT) 12 Capsule 1 02/19/2023 Active Additional [...] MOUTH EVERY MORNING 90 Tablet 3 10/11/2023 Active linaGLIPtin 5 MG Oral Tablet (Tradjenta) [...] DAY 54 g 3 01/10/2024 Active Nystatin 504935 UNIT/GM External CreamIndications:Can didal skin infection APPLY TO AFFECTED AREA(S) TWICE A DAY FOR 2 WEEKS 60 g 5 01/21/2024 Active Hospital, Clinic, or Other Facility Administered Medication Ordered Dose Route Frequency Start Date End Date Status Albuterol Sulfate (Proventil) (2.5 MG/3ML) 0.083% inhalation solution 2.5 mgIndications:Chronic respiratory failure with hypoxia (HCC),COPD, group D, by GOLD 2017 classification ([facility]) 2.5 mg NEBULIZER PRN 12/06/2023 12/05/2024 Acti ve Albuterol Sulfate (Proventil) (5 MG/ML) 0.5% *conc* inhalation solution 2.5 mgIndications:Chronic respiratory failure with hypoxia (HCC),COPD, group D, by GOLD 2017 classification ([facility]) 2.5 mg NEBULIZER PRN 12/06/2023 12/05/2024 Acti ve documented as of this encounter (statuses as of 02/15/2024) Active Problems Problem Noted Date Diagnosed Date [...] rinse after steroid. Test performed by Loli SAVINGS COUNSELOR CPFT Hypertensive kidney disease, stage III 9 [...] as of this encounter (statuses as of 02/15/2024) Resolved Problems Problem Noted Date Diagnosed Date [...] as of this encounter (statuses as of 02/15/2024) Immunizations Name Administration Dates Next Due COVID-19 [...] Monitoring 09/14/2020 09/14/2019 CKD PHOS USE SMARTSET 27501 12/10/202211/22, 12/13/2020, 12/11/2014, Additional history exists COVID-19 [...] Additional history exists CKD HGB USE SMARTSET 26430 08/26/202408/26, 08/26/2023, 05/24/2023, Additional history exists Diabetic [...] D LEVEL ONCE IN A LIFETIME-USE SMARTSET# 96075 Completed 12/10/2021, 03/01/2019, 07/07/2017, Additional history exists [...] Documents on File Type Date Recorded Patient Blueprint Tracer Expl anation DAYA 08/03/2018 POLST Care Teams Humidifier Maintenance Worker Relationship Specialty Start Date End Date Franca Lilly MD PCP - General Internal Medicine 07/03/22 documented as of this encounter
[2024-05-16] MEDS: LORazepam 1 MG TAB PO STA (13:50)
--- OUTSIDE RECORDS SUMMARY | 2024-05-16 13:50 | External Medical Summary | Summary of Care ---
Author Name Unknown Organization [facility] Address [address] [place] [address] Phone [phone] Care Team Providers Care Truck Operator Name Role Phone Franca Lilly MD Primary Care Provider [phone] Reason for Visit * Reason Comments Medication Refill Encounter Details Date Type Department Care Team (Late st Contact Info) Description 01/08/[address] [facility] [address] [place] [address] Franca Lilly MD [address] [place] [address] Chronic rhinitis; COPD exacerbation (HCC) Allergies Active Allergy Reactions Criticality Noted Date Comments Morphine And Related 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 Quinolones Other (Please comment) 02/19/2003 Hives Moods- becomes nasty Adhesive Tape Rash 01/29/2014 documented as of this encounter (statuses as of 01/10/2024) Medications Medication Sig Dispensed Refills Start Date End Date Status NEBULIZERS MISCIndications:COUNTY ADVISER D, 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) portable nebulizer 1 Each 5 01/24/2014 Active Spacer/Aero-Holding Chambers DEVIIndications:COUNTY ADVISER D, severe (HCC) Use with QVar inhaler [...] 11/02/2022 Active Vitamin D (Ergocalciferol) 1.25 MG (36581 UT) Oral Capsule (Drisdol) TAKE 1 CAPSULE BY MOUTH ONE TIME PER WEEK Strength: 1.25 MG (74659 UT) 12 Capsule 1 02/19/2023 Active Additional [...] AND IRRIGATE NOSE TWICE DAILY 360 mL 09/07/2023 09/06/19 25 Active Lisinopril 10 MG [...] EVERY MORNING 90 Tablet 3 09/16/2023 09/15/19 Active Levothyroxine Sodium 75 MCG Oral Tablet (Levoxyl)Indication s:Hypothyroidism, unspecified type TAKE 1 TABLET BY MOUTH DAILY AT LEAST 30 MINUTES PRIOR TO FIRST MEAL OF THE DAY OR OTHER MEDICATIONS 90 Tablet 2 09/16/2023 09/15/19 Active Benzonatate 100 MG Oral Capsule (Tessalon [...] EVERY MORNING 90 Tablet 3 10/11/2023 10/10/19 Active Nystatin 056081 UNIT/GM External CreamIndications:Ca ndidal skin infection APPLY [...] Active Amoxicillin-Pot Clavulanate 875-125 MG Oral Tablet (Augmentin)Indicati ons:COPD, group D, by GOLD 2017 classification ([facility]) Take 1 Tablet by mouth in the morning and 1 Tablet before bedtime. Do all this for 7 days. COPD rescue kit. 14 Tablet 12/31/2023 01/12/20 24 Active methylPREDNISolone 4 MG Oral Tablet Therapy Pack (Medrol Dosepack) follow package directions 21 Tablet 01/04/2024 Active Loratadine 10 MG Oral Tablet (Claritin)Indicatio ns:Chronic rhinitis TAKE ONE TABLET BY MOUTH EVERY MORNING 100 Tablet 3 01/10/2024 01/10/20 Active Albuterol Sulfate HFA 108 (90 Base) MCG/ACT Inhalation Aerosol SolutionIndications :COPD exacerbation ([facility]) INHALE TWO PUFFS BY MOUTH FOUR TIMES A DAY 54 g 3 01/10/2024 01/10/20 25 Active Loratadine 10 MG Oral Tablet (Claritin)Indicatio ns:Chronic rhinitis TAKE ONE TABLET BY MOUTH EVERY MORNING 90 Tablet 1 07/12/2023 01/08/20 24 Discontinu ed(Refill) Albuterol Sulfate HFA 108 (90 Base) MCG/ACT Inhalation Aerosol SolutionIndications :COPD exacerbation (HCC) INHALE TWO PUFFS BY MOUTH FOUR TIMES A DAY 18 g 5 07/12/2023 01/08/20 24 Discontinu ed(Refill) Hospital, Clinic, or Other [...] as of this encounter (statuses as of 01/10/2024) Active Problems Problem Noted Date Diagnosed Date [...] rinse after steroid. Test performed by Loli TAVERN CAR ATTENDANT CPFT Hypertensive kidney disease, stage III 9 [...] as of this encounter (statuses as of 01/10/2024) Resolved Problems Problem Noted Date Diagnosed Date [...] as of this encounter (statuses as of 01/10/2024) Immunizations Name Administration Dates Next Due COVID-19 mRNA, LNP-s, No Pre serve, 2-Dose Series (EUROBOX) 05/27/2021,11/21/2020,10/31/2020 Pneumococcal Conjugate Vacc, 13 Valent (Prevnar) [...] encounter Miscellaneous Notes * Telephone Encounter - Samantha Tanner, [facility] - 01/10/2024 9:31 AM EDTSigned Prescriptions: Disp Refills Loratadine 10 MG Oral Tablet (Claritin) 100 Ta*3 Sig: TAKE ONE TABLET BY MOUTH EVERY MORNING Authorizing Provider: FRANCA LILLY Ordering User: SAMANTHA TANNER Albuterol Sulfate HFA 108 (90 Base) MCG/AC*54 g 3 Sig: INHALE TWO PUFFS BY MOUTH FOUR TIMES A DAY Authorizing Provider: FRANCA LILLY Ordering User: SAMANTHA TANNER * Telephone Encounter - 01/08/2024 12:11 AM EDTPending Prescriptions: Disp Refills Loratadine 10 MG Oral Tablet (Claritin) 90 Tab*1 Sig: TAKE ONE TABLET BY MOUTH EVERY MORNING Albuterol Sulfate HFA 108 (90 Base) MCG/AC*18 g 5 Sig: INHALE TWO PUFFS BY MOUTH FOUR TIMES A DAY documented in this encounter Plan of Treatment Upcoming Encounters Date Type Department Care Team (Late st Contact Info) Description 04/27/2024 10:45 AM EDT Office Visit Ophthalmology, [facility] [address] [facility] [place] [id number] Jeremy Shaw, [address] [facility] [place] [address] Health Maintenance Due Date Last Done Comments Alpha-1 Antitrypsin 1969 Hepatitis C Screening 1969 Cologuard 1996 Colonoscopy 1996 Sigmoidoscopy 1996 Colorectal Cancer Screening 01/22/2012 Fecal Occult Blood Test 01/22/2012 01/22/20, 12/21/2008, 12/03/2007 DISCUSS TOBACCO CESSATION (REFER TO SMARTSET #3291) 12/12/2015 12/11/2014 (Discussed) Zoster Vaccines (3 of 3) 03/07/2019 01/10/2019, 02/21 CKD PHOS USE SMARTSET 61233 12/10/202211/22, 12/13/2020, 12/11/2014, Additional history exists COVID-19 [...] Additional history exists CKD HGB USE SMARTSET 63082 08/26/202408/26, 08/26/2023, 05/24/2023, Additional history exists Diabetic [...] D LEVEL ONCE IN A LIFETIME-USE SMARTSET# 34098 Completed 12/10/2021, 03/01/2019, 07/07/2017, Additional history exists [...] as of this encounter Visit Diagnoses Diagnosis Chronic rhinitis COPD exacerbation (HCC) Obstructive chronic bronchitis with exacerbation documented in this encounter Advance Directives Documents on File Type Date Recorded Patient Cnc Mill And Lathe Operator Expl anation DAYA 08/03/2018 POL Care Teams Truck Operator Relationship Specialty Start Date End Date Franca Lilly MD PCP - General Internal Medicine 07/03/22 documented as of this encounter
--- OUTSIDE RECORDS SUMMARY | 2024-05-16 13:50 | External Medical Summary | Summary of Care ---
Author Name Unknown Organization [facility] Address [address] [place] [address] Phone [phone] Care Team Providers Care Sap Fico Business Analyst Name Role Phone Franca Lilly MD Primary Care Provider [phone] Reason for Referral * Medication Prior Authorization - Pending Review Specialty Diagnoses / Procedures Referred By Contac t Referred To Contact Franca Lilly MD [address] [place] [address] Referral ID Status Reason Start Date Expiration Date V isits Requested Visits Authorized [id number] Pending Review [phone] Reason for Visit * Reason Onset Date Comments Other 12/31/2023 Encounter Details Date Type Department Care Team (Late st Contact Info) Description 12/31/2023 Telephone [facility] [address] [place] [address] Franca Lilly MD [address] [place] [address] Other Allergies Active Allergy Reactions Criticality Noted Date Comments Morphine And Related 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 Quinolones Other (Please comment) 02/19/2003 Hives Moods- becomes nasty Adhesive Tape Rash 01/29/2014 documented as of this encounter (statuses as of 01/04/2024) Medications Medication Sig Dispensed Refills Start Date End Date Status NEBULIZERS MISCIndications:COPD , 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) portable nebulizer 1 Each 5 01/24/2014 Active Spacer/Aero-Holding Chambers DEVIIndications:COPD , severe (HCC) Use with QVar inhaler 1 Device 3 10/02/2016 Active Blood Pressure Monitoring (BD ASSURE BPM/AUTO ARM CUFF) MISC Check BP daily as needed 1 Each 0 12/06/2018 Active ONETOUCH DELICA LANCETS 33G MISC [...] Tablet in the evening. Take with meals. 0 Active guaiFENesin ER 600 MG Oral Tablet Extended Release 12 Hour Take 1 Tablet by mouth in the morning and 1 Tablet before bedtime. 0 Active Dextromethorphan-gua iFENesin 10-100 MG/5ML Oral Syrup Take 10 mL by mouth every 6 hours as needed for Cough. 0 Active Azelastine HCl 137 MCG/SPRAY Nasal SolutionIndications: Rhinitis, nonallergic ADMINISTER 2 SPRAYS INTO EACH NOSTRIL 2 TIMES A DAY. 90 mL 1 11/02/2022 Active Vitamin D (Ergocalciferol) 1.25 MG (86181 UT) Oral Capsule (Drisdol) TAKE 1 CAPSULE BY MOUTH ONE TIME PER WEEK Strength: 1.25 MG (67740 UT) 12 Capsule 1 02/19/2023 Active Additional [...] DAY AT BEDTIME 30 Tablet 1 04/06/2023 08/14/202 4 Active Nitroglycerin 0.4 MG Sublingual Tablet Sublingual (Nitrostat)Indicatio ns:Heart failure, systolic, due to idiopathic cardiomyopathy (HCC) Place 1 Tablet under the tongue every 5 minutes as needed for chest pain. 25 Tablet 5 05/24/2023 Active Fluticasone-Umeclidi n-Vilant 200-62.5-25 MCG/ACT Aerosol Powder Breath Activated (Trelegy Ellipta) Inhale 1 Puff by mouth in the morning. 60 Each 11 05/24/2023 Active Loratadine 10 MG Oral Tablet (Claritin)Indication s:Chronic rhinitis TAKE ONE TABLET BY MOUTH EVERY MORNING 90 Tablet 1 07/12/2023 4 Active Albuterol Sulfate HFA 108 (90 Base) MCG/ACT Inhalation Aerosol SolutionIndications: COPD exacerbation (HCC) INHALE TWO PUFFS BY MOUTH FOUR TIMES A DAY 18 g 5 07/12/2023 4 Active Potassium Chloride Tegan ER 10 MEQ [...] keep 2L oxygen for hypoxia 1 Each 0 08/26/2023 Active PARoxetine HCl 40 MG Oral Tablet (pAXil) TAKE ONE TABLET BY MOUTH EVERY MORNING 90 Tablet 3 09/06/2023 5 Active Atenolol 25 MG Oral Tablet (Tenormin)Indication s:HTN, goal below 140/90,Heart failure, systolic, due to idiopathic cardiomyopathy (HCC) TAKE ONE TABLET BY MOUTH EVERY MORNING 90 Tablet 1 09/06/2023 5 Active Atorvastatin Calcium 40 MG [...] times a day as needed for Cough. 0 Active Vitamin D3 125 MCG (5000 UT) Oral Capsule Take one capsule by mouth every other day 0 Active Pantoprazole Sodium 40 MG Oral Tablet Delayed Release (Protonix) TAKE ONE TABLET BY MOUTH EVERY MORNING 90 Tablet 3 10/04/2023 Active Aspirin 81 MG Oral Tablet Delayed Release (Aspirin Low Dose)Indications:HTN , goal below 140/90 TAKE ONE TABLET BY MOUTH EVERY MORNING 90 Tablet 3 10/11/2023 5 Active Nystatin 960978 UNIT/GM External CreamIndications:Can didal skin infection APPLY [...] ns:COPD, group D, by GOLD 2017 classification ([facility]) Take 1 Tablet by mouth in the morning and 1 Tablet before bedtime. Do all this for 7 days. COPD rescue kit. 14 Tablet 0 12/31/2023 Active methylPREDNISolone 4 MG Oral Tablet Therapy Pack (Medrol Dosepack) follow package directions 21 Tablet 0 12/31/2023 Active Hospital, Clinic, or Other Facility Administered Medication Ordered Dose Route Frequency Start Date End Date Status Albuterol Sulfate (Proventil) (2.5 MG/3ML) 0.083% inhalation solution 2.5 mgIndications:Chronic respiratory failure with hypoxia (HCC),COPD, group D, by GOLD 2017 classification ([facility]) 2.5 mg NEBULIZER PRN 12/06/2023 12/05/2024 Acti ve Albuterol Sulfate (Proventil) (5 MG/ML) 0.5% *conc* inhalation solution 2.5 mgIndications:Chronic respiratory failure with hypoxia (HCC),COPD, group D, by GOLD 2017 classification ([facility]) 2.5 mg NEBULIZER PRN 12/06/2023 12/05/2024 Acti ve documented as of this encounter (statuses as of 01/04/2024) Active Problems Problem Noted Date Diagnosed Date [...] rinse after steroid. Test performed by Loli MOLD HOISTER CPFT Hypertensive kidney disease, stage III 9 [...] as of this encounter (statuses as of 01/04/2024) Resolved Problems Problem Noted Date Diagnosed Date [...] as of this encounter (statuses as of 01/04/2024) Immunizations Name Administration Dates Next Due COVID-19 mRNA, LNP-s, No Pre serve, 2-Dose Series (tuQuejaSuma) 05/27/2021,11/21/2020,10/31/2020 Pneumococcal Conjugate Vacc, 13 Valent (Prevnar) [...] encounter Miscellaneous Notes * Telephone Encounter - Giulia Peñaloza CPhT - 01/04/2024 12:07 PM EDT Patient calling to request to speak to an [facility] to advise whether or not she should start the methylPREDNISolone 4 MG Oral Tablet Therapy Pack (Medrol Dosepack). Transferring patient to Sarahi for further assistance, Thank you, Giulia Peñaloza Cnc Milling Machine Operator III [facility]) 01/04/2024, 12:08 PM * Telephone Encounter - Mitzi Sutton OSA - 01/04/2024 12:00 PM EDT Pt calling stating her prednisone was no send to her pharmacy please send script to [facility] please call pt when script has been sent * Telephone Encounter - Nolan Kolb CPhT - 12/31/2023 2:30 PM EDT Patients insurance would like to inform the office that METHYLPREDNISOLONE 4 MG DOSEPK is not requiring review because No review is needed for this medication, test claims approve as well as future test claims, Thank you, Uche Kolb ([facility]) Cnc Milling Machine Operator III [facility] ([facility]) 12/31/2023, 2:30 PM * Telephone Encounter - Franca Lilly MD - 12/31/2023 1:04 PM EDT Sent out rescue meds * Telephone Encounter - Jany Poon LPN - 12/31/2023 12:57 PM EDT Please advise, thank you! * Telephone Encounter - Kalpana Presley CPhT - 12/31/2023 11:39 AM EDT Did not see amoxicillin and prednisone on medication list Pt calling and is requesting a medication be prescribed for her rescue kit Pt did not want to schedule an appointment at this time. Call details was not completed because na. Please advise. Thank you, Kalpana Presley [facility] Cnc Milling Machine Operator III [facility] ([facility]) 12/31/2023,11:39 AM documented in this encounter Plan of Treatment Upcoming Encounters Date Type Department Care Team (Late st Contact Info) Description 04/27/2024 10:45 AM EDT Office Visit Ophthalmology, [facility] [address] [facility] [place] [address] Jeremy Shaw, DO [address] [place] [address] Health Maintenance Due Date Last Done Comments Alpha-1 Antitrypsin 1969 Hepatitis C Screening 1969 Cologuard 1996 Colonoscopy 1996 Sigmoidoscopy 1996 Colorectal Cancer Screening 01/22/2012 Fecal Occult Blood Test 01/22/2012 01/22/20 11, 12/21/2008, 12/03/2007 DISCUSS TOBACCO CESSATION (REFER TO SMARTSET #3291) 12/12/2015 12/11/2014 (Discussed) Zoster Vaccines (3 of 3) 03/07/2019 01/10/2019, 02/21 CKD PHOS USE SMARTSET 99743 12/10/202211/22, 12/13/2020, 12/11/2014, Additional history exists COVID-19 [...] Additional history exists CKD HGB USE SMARTSET 40421 08/26/202408/26, 08/26/2023, 05/24/2023, Additional history exists Diabetic [...] D LEVEL ONCE IN A LIFETIME-USE SMARTSET# 13987 Completed 12/10/2021, 03/01/2019, 07/07/2017, Additional history exists [...] as of this encounter Visit Diagnoses Diagnosis COPD, group D, by GOLD 2017 classification (HCC)- Primary documented in this encounter Advance Directives Documents on File Type Date Recorded Patient Student Counsellor Expl anation POLST 08/03/2018 POLST Care Teams Sap Fico Business Analyst Relationship Specialty Start Date End Date Franca Lilly MD PCP - General Internal Medicine 07/03/22 documented as of this encounter
--- OUTSIDE RECORDS SUMMARY | 2024-05-16 13:50 | External Medical Summary | Summary of Care ---
Author Name Unknown Organization [facility] Address [address] [place] [address] Phone [phone] Care Team Providers Care Ramp Attendant Name Role Phone Franca Lilly MD Primary Care Provider [phone] Reason for Visit * Reason Onset Date Comments FYI 01/04/2024 Encounter Details Date Type Department Care Team (Late st Contact Info) Description 01/04/2024 Telephone [facility] [address] [place] [address] Franca Lilly MD [address] [place] [address] FYI Allergies Active Allergy Reactions Criticality Noted Date [...] 11/02/2022 Active Vitamin D (Ergocalciferol) 1.25 MG (14284 UT) Oral Capsule (Drisdol) TAKE 1 CAPSULE BY MOUTH ONE TIME PER WEEK Strength: 1.25 MG (63984 UT) 12 Capsule 1 02/19/2023 Active Additional [...] NOSE TWICE DAILY 360 mL 1 09/07/2023 5 Active Lisinopril 10 MG Oral Tablet (Prinivil)Indication [...] 10 MG Oral Tablet (Singulair)Indicatio ns:COPD, severe ([facility]) TAKE ONE TABLET BY MOUTH EVERY MORNING [...] 90 Tablet 3 10/11/2023 5 Active Nystatin 074314 UNIT/GM External CreamIndications:Can didal skin infection APPLY [...] ns:COPD, group D, by GOLD 2017 classification ([facility]) Take 1 Tablet by mouth in the morning and 1 Tablet before bedtime. Do all this for 7 days. COPD rescue kit. 14 Tablet 0 12/31/2023 4 Active methylPREDNISolone 4 MG Oral Tablet Therapy Pack (Medrol Dosepack) follow package directions 21 Tablet 0 01/04/2024 Active Hospital, Clinic, or Other Facility [...] rinse after steroid. Test performed by Loli COMMUNITY HEALTH OUTREACH WORKER CPFT Hypertensive kidney disease, stage III 9 [...] mRNA, LNP-s, No Pre serve, 2-Dose Series (Klique) 05/27/2021,11/21/2020,10/31/2020 Pneumococcal Conjugate Vacc, 13 Valent (Prevnar) [...] encounter Miscellaneous Notes * Telephone Encounter - Tara Uriarte plug stitcher - 01/04/2024 2:25 PM EDT P calling to advise Methylprednisolone does not require a PA Tara Ward It Security Administrator III [facility] ([facility]) 01/04/2024,2:26 PM documented in this encounter Plan of Treatment Upcoming Encounters Date Type Department Care Team (Late st Contact Info) Description 04/27/2024 10:45 AM EDT Office Visit Ophthalmology, [address] [place] [address] Jeremy Shaw, DO 21 [facility] [place] [id number] Health Maintenance Due Date Last Done Comments Alpha-1 Antitrypsin 1968 Hepatitis C Screening 1969 Cologuard 1996 Colonoscopy 1996 Sigmoidoscopy 1996 Colorectal Cancer Screening 01/22/2012 Fecal Occult Blood Test 01/22/2012 01/22/20 11, 12/21/2008, 12/03/2007 DISCUSS TOBACCO CESSATION (REFER TO SMARTSET #3291) 12/12/2015 12/11/2014 (Discussed) Zoster Vaccines (3 of 3) 03/07/2019 01/10/2019, 02/21 CKD PHOS USE SMARTSET 29739 12/10/202211/22, 12/13/2020, 12/11/2014, Additional history exists COVID-19 Vaccine ( season) 2023 05/27/2021, 11/21/2020, 10/31/2020 Albumin/Creatinine Ratio 06/11/2023 022, 07/07/2017, 12/11/2014, Additional history exists Mammogram 09/09/2023 09/09/2022, 08/23, 12/06/2018, Additional history exists HbA1c 11/23/2023 05/24/2023, 05/24, 12/10/2021, Additional history exists GFR 02/24/2024 08/26/2023, 1009/2022, 06/11/2022, Additional history exists Diabetic Foot Exam 05/24/2024 05/24/2023, 0 12/10/2021, 09/14/2019, Additional history exists TSH 05/24/2024 05/24/2023, 05/24, 12/10/2021, Additional history exists CKD HGB USE SMARTSET 94928 08/26/202408/26, 08/26/2023, 05/24/2023, Additional history exists Diabetic [...] D LEVEL ONCE IN A LIFETIME-USE SMARTSET# 69348 Completed 12/10/2021, 03/01/2019, 07/07/2017, Additional history exists [...] Documents on File Type Date Recorded Patient Human Resources Executive Expl anation POLST 08/03/2018 POLST Care Teams Ramp Attendant Relationship Specialty Start Date End Date Franca Lilly MD PCP - General Internal Medicine 07/03/22 documented as of this encounter
--- OUTSIDE RECORDS SUMMARY | 2024-05-16 13:50 | External Medical Summary | Summary of Care ---
Author Name Unknown Organization [facility] Address [address] [place] [address] Phone [phone] Care Team Providers Care Leadership Development Manager Name Role Phone Franca Lilly MD Primary Care Provider [phone] Reason for Referral * Medication Prior Authorization - Pending Review Specialty Diagnoses / Procedures Referred By Contac t Referred To Contact Franca Lilly MD [address] [place] [address] Referral ID Status Reason Start Date Expiration Date V isits Requested Visits Authorized [id number] Pending Review 999 422 Reason for Visit * Reason Onset Date Comments Other 12/31/2023 Encounter Details Date Type Department Care Team (Late st Contact Info) Description 12/31/2023 Telephone [facility] [address] [place] [address] Franca Lilly MD [address] [place] [address] Other Allergies Active Allergy Reactions [...] 11/02/2022 Active Vitamin D (Ergocalciferol) 1.25 MG (24384 UT) Oral Capsule (Drisdol) TAKE 1 CAPSULE BY MOUTH ONE TIME PER WEEK Strength: 1.25 MG (81515 UT) 12 Capsule 1 02/19/2023 Active Additional [...] 90 Tablet 3 10/11/2023 5 Active Nystatin 887123 UNIT/GM External CreamIndications:Can didal skin infection APPLY [...] ns:COPD, group D, by GOLD 2017 classification ([facility]) Take 1 Tablet by mouth in the [...] (HCC),COPD, group D, by GOLD 2017 classification ([facility]) 2.5 mg NEBULIZER PRN 12/06/2023 12/05/2024 Acti ve Albuterol Sulfate (Proventil) (5 MG/ML) 0.5% *conc* inhalation solution 2.5 mgIndications:Chronic respiratory failure with hypoxia (HCC),COPD, group D, by GOLD 2017 classification ([facility]) 2.5 mg NEBULIZER PRN 12/06/2023 12/05/2024 Acti [...] rinse after steroid. Test performed by Loli STORE CLERK CASHIER CPFT Hypertensive kidney disease, stage III 9 [...] mRNA, LNP-s, No Pre serve, 2-Dose Series (Wireless Environment) 05/27/2021,11/21/2020,10/31/2020 Pneumococcal Conjugate Vacc, 13 Valent (Prevnar) [...] encounter Miscellaneous Notes * Telephone Encounter - Mitzi Sutton OSA - 01/04/2024 12:00 PM EDT Pt calling stating her prednisone was no send to her pharmacy please send script to [facility] Mail Order please call pt when script has been sent * Telephone Encounter - Nolan Kolb CPhT - 12/31/2023 2:30 PM EDT Patients insurance would like to inform the office that METHYLPREDNISOLONE 4 MG DOSEPK is not requiring review because No review is needed for this medication, test claims approve as well as future test claims, Thank you, Uche Kolb ([facility]) Application Security Consultant III [facility] Pharm[facility] Services ([facility]) (formerly [...] na. Please advise. Thank you, Kalpana Presley [facility] Application Security Consultant III Centralized Clinical Pharmacy Services([facility]PS) (formerly Telepharmacy) 12/31/2023,11:39 AM documented in this encounter Plan of Treatment Upcoming Encounters Date Type Department Care Team (Late st Contact Info) Description 04/27/2024 10:45 AM EDT Office Visit Ophthalmology, [facility] [address] [facility] [place] [address] Jeremy Shaw DO [address] [place] [phone] Health Maintenance Due Date Last Done Comments Alpha-1 Antitrypsin 1969 Hepatitis C Screening 1969 Cologuard 1996 Colonoscopy 1996 Sigmoidoscopy 1996 Colorectal Cancer Screening 01/22/2012 Fecal Occult Blood Test 01/22/2012 01/22/20 11, 12/21/2008, 12/03/2007 DISCUSS TOBACCO CESSATION (REFER TO SMARTSET #3291) 12/12/2015 12/11/2014 (Discussed) Zoster Vaccines (3 of 3) 03/07/2019 01/10/2019, 02/21 CKD PHOS USE SMARTSET 49373 12/10/202211/22, 12/13/2020, 12/11/2014, Additional history exists COVID-19 [...] Additional history exists CKD HGB USE SMARTSET 22874 08/26/202408/26, 08/26/2023, 05/24/2023, Additional history exists Diabetic [...] D LEVEL ONCE IN A LIFETIME-USE SMARTSET# 11752 Completed 12/10/2021, 03/01/2019, 07/07/2017, Additional history exists [...] Documents on File Type Date Recorded 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
--- OUTSIDE RECORDS SUMMARY | 2024-05-16 13:50 | External Medical Summary | Summary of Care ---
Author Name Unknown Organization [facility] Address [address] [place] [address] Phone [phone] Care Team Providers Care Mechanical Engineering Coop Name Role Phone Franca Lilly MD Primary Care Provider [phone] Reason for Referral * Medication Prior Authorization - Pending Review Specialty Diagnoses / Procedures Referred By Contac t Referred To Contact Franca Lilly MD [address] [place] [address] Referral ID Status Reason Start Date Expiration Date V isits Requested Visits Authorized [id number] Pending Review 999 110 Reason for Visit * Reason Onset Date Comments Other 12/31/2023 Encounter Details Date Type Department Care Team (Late st Contact Info) Description 12/31/2023 Telephone [facility] [address] [place] [address] Franca Lilly MD [address] [place] [address] Other Allergies Active Allergy Reactions Criticality Noted Date Comments Morphine And Related 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 Quinolones Other (Please comment) 02/19/2003 Hives Moods- becomes nasty Adhesive Tape Rash 01/29/2014 documented as of this encounter (statuses as of 01/04/2024) Medications Medication Sig Dispensed Refills Start Date End Date Status NEBULIZERS MISCIndications: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 0 Active Dextromethorphan-gu aiFENesin 10-100 MG/5ML Oral Syrup Take 10 mL by mouth every 6 hours as needed for Cough. 0 Active Azelastine HCl 137 MCG/SPRAY Nasal SolutionIndications :Rhinitis, nonallergic ADMINISTER 2 SPRAYS INTO EACH NOSTRIL 2 TIMES A DAY. 90 mL 1 11/02/2022 Active Vitamin D (Ergocalciferol) 1.25 MG (79423 UT) Oral Capsule (Drisdol) TAKE 1 CAPSULE BY MOUTH ONE TIME PER WEEK Strength: 1.25 MG (75508 UT) 12 Capsule 1 02/19/2023 Active Additional [...] 05/24/2023 Active Loratadine 10 MG Oral Tablet (Claritin)Indicatio ns:Chronic rhinitis TAKE ONE TABLET BY MOUTH EVERY MORNING 90 Tablet 1 07/12/2023 07/11/20 24 Active Albuterol Sulfate HFA 108 (90 Base) MCG/ACT Inhalation Aerosol SolutionIndications :COPD exacerbation (HCC) INHALE TWO PUFFS BY MOUTH FOUR TIMES A DAY 18 g 5 07/12/2023 07/11/20 24 Active Potassium Chloride Tegan ER 10 MEQ [...] 90 Tablet 3 10/11/2023 10/10/19 25 Active Nystatin 822263 UNIT/GM External CreamIndications:Ca ndidal skin infection APPLY [...] ons:COPD, group D, by GOLD 2017 classification ([facility]) Take 1 Tablet by mouth in the morning and 1 Tablet before bedtime. Do all this for 7 days. COPD rescue kit. 14 Tablet 0 12/31/2023 01/11/20 24 Active methylPREDNISolone 4 MG Oral Tablet Therapy Pack (Medrol Dosepack) follow package directions 21 Tablet 0 01/04/2024 Active methylPREDNISolone 4 MG Oral Tablet Therapy Pack (Medrol Dosepack) follow package directions 21 Tablet 0 12/31/2023 01/04/20 24 Discontinu ed(Refill) Hospital, Clinic, or Other Facility Administered Medication Ordered Dose Route Frequency Start Date End Date Status Albuterol Sulfate (Proventil) (2.5 MG/3ML) 0.083% inhalation solution 2.5 mgIndications:Chronic respiratory failure with hypoxia (HCC),COPD, group D, by GOLD 2017 classification ([facility]) 2.5 mg NEBULIZER PRN 12/06/2023 12/05/2024 Acti ve Albuterol Sulfate (Proventil) (5 MG/ML) 0.5% *conc* inhalation solution 2.5 mgIndications:Chronic respiratory failure with hypoxia (HCC),COPD, group D, by GOLD 2017 classification ([facility]) 2.5 mg NEBULIZER PRN 12/06/2023 12/05/2024 Acti [...] rinse after steroid. Test performed by Loli MILL RECORDER CPFT Hypertensive kidney disease, stage III 9 [...] encounter Miscellaneous Notes * Telephone Encounter - Bobbi Fisher LPN - 01/04/2024 2:34 PM EDT Patient was notified and had no further concerns. * Addendum Note - Franca Lilly MD - 01/04/2024 12:52 PM EDTAddended by: FRANCA LILLY on: 01/04/2024 12:52 PM Modules accepted: Orders * Telephone Encounter - Franca Lilly MD - 01/04/2024 12:51 PM EDT If pt is clinically improving, no need to take steroid I will resend out steroid to mail order ,just to keep it as rescue kit * Telephone Encounter - Sarahi Brown [facility] - 01/04/2024 12:13 PM EDT Patient called to inform us that she did receive the Augmentin from [facility] but did not receive the Medrol dosepak. She was curious if she should still take the medrol dosepak when it does come or if sheshould only take the Augmentin going forward. Advised patient to make sure she does take the Medrolwhen she receives it. Warm transferred patent to [facility] to check on status of Medrol and when it will arrive. Thank you, Sarahi Brown, PharmD Clinical Pharmacist [facility] Services ([facility]) 01/04/24 12:18 PM [phone] * Telephone Encounter - Giulia Peñaloza CPhT - 01/04/2024 12:07 PM EDT Patient calling to request to speak to an [facility] to advise whether or not she should start the methylPREDNISolone 4 MG Oral Tablet Therapy Pack (Medrol Dosepack). Transferring patient to Sarahi for further assistance, Thank you, Giulia Peñaloza Cylinder Batcher III [facility] Pharmacy Services ([facility]PS) (formerly Telepharmacy) 01/04/2024, 12:08 PM * Telephone Encounter - Mitzi Sutton OSA - 01/04/2024 12:00 PM EDT Pt calling stating her prednisone was no send to her pharmacy [facility] please call pt when script has been sent * Telephone Encounter - Nolan Kolb CPhT - 12/31/2023 2:30 PM EDT Patients insurance would like to inform the office that METHYLPREDNISOLONE 4 MG DOSEPK is not requiring review because No review is needed for this medication, test claims approve as well as future test claims, Thank you, Uche Kolb ([facility]) Cylinder Batcher III [facility]ized Clin[facility] Pharmacy Services ([facility]PS) (formerly [...] na. Please advise. Thank you, Kalpana Presley pediatric associate Cylinder Batcher III [facility]) (formerly Telepharmacy) 12/31/2023,11:39 AM documented in this encounter Plan of Treatment Upcoming Encounters Date Type Department Care Team (Late st Contact Info) Description 04/27/2024 10:45 AM EDT Office Visit Ophthalmology, [facility] [address] [facility] [place] [address] Jeremy Shaw, DO 21 [facility] [place] [address] Health Maintenance Due Date Last Done Comments Alpha-1 Antitrypsin 1969 Hepatitis C Screening 1969 Cologuard 1996 Colonoscopy 1996 Sigmoidoscopy 1996 Colorectal Cancer Screening 01/22/2012 Fecal Occult Blood Test 01/22/2012 01/22/20 11, 12/21/2008, 12/03/2007 DISCUSS TOBACCO CESSATION (REFER TO SMARTSET #3291) 12/12/2015 12/11/2014 (Discussed) Zoster Vaccines (3 of 3) 03/07/2019 01/10/2019, 02/21 CKD PHOS USE SMARTSET 36594 12/10/202211/22, 12/13/2020, 12/11/2014, Additional history exists COVID-19 [...] Additional history exists CKD HGB USE SMARTSET 01006 08/26/202408/26, 08/26/2023, 05/24/2023, Additional history exists Diabetic [...] D LEVEL ONCE IN A LIFETIME-USE SMARTSET# 45315 Completed 12/10/2021, 03/01/2019, 07/07/2017, Additional history exists [...] Documents on File Type Date Recorded 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
--- OUTSIDE RECORDS SUMMARY | 2024-05-16 13:50 | External Medical Summary | Summary of Care ---
Author Name Unknown Organization [facility] Address [address] [place] [address] Phone [phone] Care Team Providers Care Construction Consultant Name Role Phone Franca Lilly MD Primary Care Provider [phone] Reason for Referral * Medication Prior Authorization - Closed Specialty Diagnoses / Procedures Referred By Contac t Referred To Contact Franca Lilly MD [address] [place] [address] Referral ID Status Reason Start Date Expiration Date Visits Re quested Visits Authorized [id number] Closed 999 999 Reason for Visit * Reason Onset Date Comments Other 12/31/2023 Encounter Details Date Type Department Care Team (Late st Contact Info) Description 12/31/[address] [facility] [address] [place] [address] Franca Lilly MD [address] [place] [address] Other Allergies Active Allergy Reactions [...] 11/02/2022 Active Vitamin D (Ergocalciferol) 1.25 MG (28997 UT) Oral Capsule (Drisdol) TAKE 1 CAPSULE BY MOUTH ONE TIME PER WEEK Strength: 1.25 MG (34085 UT) 12 Capsule 1 02/19/2023 Active Additional [...] 90 Tablet 3 10/11/2023 5 Active Nystatin 118175 UNIT/GM External CreamIndications:Can didal skin infection APPLY TO AFFECTED AREA(S) TWICE A DAY FOR 2 WEEKS 60 g 1 11/26/2023 Active linaGLIPtin 5 MG Oral Tablet (Tradjenta) Take 1 Tablet by mouth in the morning. 90 Tablet 3 12/14/2023 Active Clotrimazole 10 MG Mouth/Throat Krunal (Mycelex Krunal)Indications:T hrush DISSOLVE 1 KRNUAL IN MOUTH 5 TIMES A DAY NEEDED FOR THRUSH 60 Krunal 1 12/16/2023 Active Amoxicillin-Pot Clavulanate 875-125 MG Oral Tablet (Augmentin)Indicatio ns:COPD, group D, by GOLD 2017 classification ([facility]) Take 1 Tablet by mouth in [...] (HCC),COPD, group D, by GOLD 2017 classification ([facility]) 2.5 mg NEBULIZER PRN 12/06/2023 12/05/2024 Acti ve Albuterol Sulfate (Proventil) (5 MG/ML) 0.5% *conc* inhalation solution 2.5 mgIndications:Chronic respiratory failure with hypoxia (HCC),COPD, group D, by GOLD 2017 classification ([facility]) 2.5 mg NEBULIZER PRN 12/06/2023 12/05/2024 [...] rinse after steroid. Test performed by Loli ROCKET MOTOR MECHANIC CPFT Hypertensive kidney disease, stage III 9 [...] mRNA, LNP-s, No Pre serve, 2-Dose Series (OOgave) 05/27/2021,11/21/2020,10/31/2020 Pneumococcal Conjugate Vacc, 13 Valent (Prevnar) [...] encounter Miscellaneous Notes * Telephone Encounter - Sarahi Brown, [facility], located [facility] - 01/04/2024 12:13 PM EDT Patient called to inform us that she did receive the Augmentin from [facility] but did not receive the Medrol dosepak. She was curious if she should still take the medrol dosepak when it does come or if sheshould only take the Augmentin going forward. Advised patient to make sure she does take the Medrolwhen she receives it. Warm transferred patent to [facility] to check on status of Medrol and when it will arrive. Thank you, Sarahi Brown, PharmD Clinical Pharmacist [facility] Pharm[facility] ([facility]) 01/04/24 12:18 PM [phone] Electronically signed by Sarahi Brown [facility] at 01/04/2024 12:19 PM EDT * Telephone Encounter - Giulia Peñaloza CPhT - 01/04/2024 12:07 PM EDT Patient calling to request to speak to an [facility] to advise whether or not she should start the methylPREDNISolone 4 MG Oral Tablet Therapy Pack (Medrol Dosepack). Transferring patient to Sarahi for further assistance, Thank you, Giulia Peñaloza Plate Filler III Centralized Clinical Pharmacy Services ([facility]PS) (formerly Telepharmacy) 01/04/2024, 12:08 PM * Telephone Encounter - Mitzi Sutton OSA - 01/04/2024 12:00 PM EDT Pt calling stating her prednisone was no send to her pharmacy please send script to [facility] Order please call pt when script has been sent * Telephone Encounter - Nolan Kolb CPhT - 12/31/2023 2:30 PM EDT Patients insurance would like to inform the office that METHYLPREDNISOLONE 4 MG DOSEPK is not requiring review because No review is needed for this medication, test claims approve as well as future test claims, Thank you, Uche Kolb ([facility]) Plate Filler III Centralized Clin[facility] Pharmacy Services ([facility]PS) (formerly [...] because na. Please advise. Thank you, Kalpana Preslye CphT Plate Filler III Centralized Clinical Pharmacy Services([facility]PS) (formerly Telepharmacy) 12/31/2023,11:39 AM documented in this encounter Plan of Treatment Upcoming Encounters Date Type Department Care Team (Late st Contact Info) Description 04/27/2024 10:45 AM EDT Office Visit Ophthalmology, [facility] [address] [facility] [place] [address] Jeremy Shaw, DO 21 [facility] [place] [address] Health Maintenance Due Date Last Done Comments Alpha-1 Antitrypsin 1968 Hepatitis C Screening 1969 Cologuard 1996 Colonoscopy 1996 Sigmoidoscopy 1996 Colorectal Cancer Screening 01/22/2012 Fecal Occult Blood Test 01/22/2012 01/22/20 11, 12/21/2008, 12/03/2007 DISCUSS TOBACCO CESSATION (REFER TO SMARTSET #3291) 12/12/2015 12/11/2014 (Discussed) Zoster Vaccines (3 of 3) 03/07/2019 01/10/2019, 02/21 CKD PHOS USE SMARTSET 35709 12/10/202211/22, 12/13/2020, 12/11/2014, Additional history exists COVID-19 [...] Additional history exists CKD HGB USE SMARTSET 23072 08/26/202408/26, 08/26/2023, 05/24/2023, Additional history exists Diabetic [...] D LEVEL ONCE IN A LIFETIME-USE SMARTSET# 53476 Completed 12/10/2021, 03/01/2019, 07/07/2017, Additional history exists [...] Documents on File Type Date Recorded Patient Supervisor Slashing Department Expl anation DAYA 08/03/2018 POL Care Teams Construction Consultant Relationship Specialty Start Date End Date Franca Lilly MD PCP - General Internal Medicine 07/03/22 documented as of this encounter
--- OUTSIDE RECORDS SUMMARY | 2024-05-16 13:50 | External Medical Summary | Summary of Care ---
Author Name Unknown Organization [facility] Address [address] [place] [address] Phone [phone] Prov[address] Care Court Registry Officer Name Role Phone Franca Lilly MD Primary Care Provider Reason for Referral * Medication Prior Authorization - Pending Review Specialty Diagnoses / Procedures Referred By Contac t Referred To Contact Franca Lilly MD [address] [place] [address] Referral ID Status Reason Start Date Expiration Date V isits Requested Visits Authorized [id number] Pending Review [phone] Reason for Visit * Reason Onset Date Comments Other 12/31/2023 Encounter Details Date Type Department Care Team (Late st Contact Info) Description 12/31/2023 Telephone [facility] [address] [place] [address] Franca Lilly MD [address] [place] [address] Other Allergies Active Allergy Reactions Criticality Noted Date Comments Morphine And Related 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 Quinolones Other (Please comment) 02/19/2003 Hives Moods- becomes nasty Adhesive Tape Rash 01/29/2014 documented as of this encounter (statuses as of 01/04/2024) Medications Medication Sig Dispensed Refills Start Date End Date Status NEBULIZERS MISCIndications: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, 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) portable nebulizer 1 Each 5 01/24/2014 Active Spacer/Aero-Holding Chambers DEVIIndications: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, severe (HCC) Use with QVar inhaler [...] 11/02/2022 Active Vitamin D (Ergocalciferol) 1.25 MG (58572 UT) Oral Capsule (Drisdol) TAKE 1 CAPSULE BY MOUTH ONE TIME PER WEEK Strength: 1.25 MG (36295 UT) 12 Capsule 1 02/19/2023 Active Additional [...] Tablet 3 10/11/2023 10/10/19 25 Active Nystatin 471842 UNIT/GM External CreamIndications:Ca ndidal skin infection APPLY [...] ons:COPD, group D, by GOLD 2017 classification ([facility]) Take 1 Tablet by mouth [...] group D, by GOLD 2017 classification ([facility]) 2.5 mg NEBULIZER PRN 12/06/2023 12/05/2024 Acti ve Albuterol Sulfate (Proventil) (5 MG/ML) 0.5% *conc* inhalation solution 2.5 mgIndications:Chronic respiratory failure with hypoxia (HCC),COPD, group D, by GOLD 2017 classification ([facility]) 2.5 mg NEBULIZER PRN 12/06/2023 [...] rinse after steroid. Test performed by Loli SIMULATION TECH CPFT Hypertensive kidney disease, stage III 9 [...] as of this encounter Miscellaneous Notes * Addendum Note - Franca Lilly MD [...] kit * Telephone Encounter - Sarahi Brown [facility] - 01/04/2024 12:13 PM EDT Patient called to inform us that she did receive the Augmentin from [facility] but did not receive the Medrol dosepak. She was curious if she should still take the medrol dosepak when it does come or if sheshould only take the Augmentin going forward. Advised patient to make sure she does take the Medrolwhen she receives it. Warm transferred patent to [facility] to check on status of Medrol and when it will arrive. Thank you, Sarahi Brown, PharmD Clinical Pharmacist [facility] ([facility]) 01/04/24 12:18 PM [phone] * Telephone Encounter - Giulia Peñaloza CPhT - 01/04/2024 12:07 PM EDT Patient calling to request to speak to an [facility] to advise whether or not she should start the methylPREDNISolone 4 MG Oral Tablet Therapy Pack (Medrol Dosepack). Transferring patient to [facility] for further assistance, Thank you, Giulia Peñaloza Hoisting Engineer Pile Driving III Central[facility] Pharmacy Services ([facility]) (formerly Telepharmacy) 01/04/2024, 12:08 PM * Telephone Encounter - Mitzi Sutton OSA - 01/04/2024 12:00 PM EDT Pt calling stating her prednisone was no send to her pharmacy please send script to [facility] please call pt when script has been sent * Telephone Encounter - Nolan Kolb CPhT - 12/31/2023 2:30 PM EDT Patients insurance would like to inform the office that METHYLPREDNISOLONE 4 MG DOSEPK is not requiring review because No review is needed for this medication, test claims approve as well as future test claims, Thank you, Uche Kolb ([facility]) Hoisting Engineer Pile Driving III [facility] Pharmacy Services ([facility]) (formerly [...] na. Please advise. Thank you, Kalpana Presley [facility] Hoisting Engineer Pile Driving III Central[facility] Clinical Pharmacy Services([facility]) (formerly Telepharmacy) 12/31/2023,11:39 AM documented in this encounter Plan of Treatment Upcoming Encounters Date Type Department Care Team (Late st Contact Info) Description 04/27/2024 10:45 AM EDT Office Visit Ophthalmology, [facility] [address] [facility] [place] [address] Jeremy Shaw, DO [address] [facility] [place] [address] Health Maintenance Due Date Last Done Comments Alpha-1 Antitrypsin 1969 Hepatitis C Screening 1969 Cologuard 1996 Colonoscopy 1996 Sigmoidoscopy 1996 Colorectal Cancer Screening 01/22/2012 Fecal Occult Blood Test 01/22/2012 01/22/20 11, 12/21/2008, 12/03/2007 DISCUSS TOBACCO CESSATION (REFER TO SMARTSET #3291) 12/12/2015 12/11/2014 (Discussed) Zoster Vaccines (3 of 3) 03/07/2019 01/10/2019, 02/21 CKD PHOS USE SMARTSET 87781 12/10/202211/22, 12/13/2020, 12/11/2014, Additional history exists COVID-19 [...] Additional history exists CKD HGB USE SMARTSET 05468 08/26/202408/26, 08/26/2023, 05/24/2023, Additional history exists Diabetic [...] D LEVEL ONCE IN A LIFETIME-USE SMARTSET# 38835 Completed 12/10/2021, 03/01/2019, 07/07/2017, Additional history exists [...] Documents on File Type Date Recorded Patient Wood Cabinetmaker Expl anation DAYA 08/03/[address] Registry Officer Relationship Specialty Start Date End Date Franca Lilly MD PCP - General Internal Medicine 07/03/22 documented as of this encounter
--- OUTSIDE RECORDS SUMMARY | 2024-05-16 13:50 | External Medical Summary | Summary of Care ---
Author Name Unknown Organization [facility] Address [address] [place] [address] Phone [phone] Care Team Providers Care Capacity Planning Engineer Name Role Phone Franca Lilly MD Primary Care Provider [phone] Reason for Referral * Medication Prior Authorization - Pending Review Specialty Diagnoses / Procedures Referred By Contac t Referred To Contact Franca Lilly MD [address] [place] [address] Referral ID Status Reason Start Date Expiration Date V isits Requested Visits Authorized [id number] Pending Review [phone] Reason for Visit * Reason Onset Date Comments Other 12/31/2023 Encounter Details Date Type Department Care Team (Late st Contact Info) Description 12/31/2023 Telephone [facility] [address] [place] [address] Franca Lilly MD [address] [place] [address] Other Allergies Active Allergy Reactions Criticality Noted Date Comments Morphine And Related 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 Quinolones Other (Please comment) 02/19/2003 Hives Moods- becomes nasty Adhesive Tape Rash 01/29/2014 documented as of this encounter (statuses as of 12/31/2023) Medications Medication Sig Dispensed Refills Start Date [...] 11/02/2022 Active Vitamin D (Ergocalciferol) 1.25 MG (38990 UT) Oral Capsule (Drisdol) TAKE 1 CAPSULE BY MOUTH ONE TIME PER WEEK Strength: 1.25 MG (36016 UT) 12 Capsule 1 02/19/2023 Active Additional [...] 90 Tablet 3 10/11/2023 5 Active Nystatin 707339 UNIT/GM External CreamIndications:Can didal skin infection APPLY [...] ns:COPD, group D, by GOLD 2017 classification ([facility]) Take 1 Tablet by mouth in the [...] (HCC),COPD, group D, by GOLD 2017 classification ([facility]) 2.5 mg NEBULIZER PRN 12/06/2023 12/05/2024 Acti ve Albuterol Sulfate (Proventil) (5 MG/ML) 0.5% *conc* inhalation solution 2.5 mgIndications:Chronic respiratory failure with hypoxia (HCC),COPD, group D, by GOLD 2017 classification ([facility]) 2.5 mg NEBULIZER PRN 12/06/2023 12/05/2024 Acti ve documented as of this encounter (statuses as of 12/31/2023) Active Problems Problem Noted Date Diagnosed Date [...] rinse after steroid. Test performed by Loli TAKE UP SUPERVISOR CPFT Hypertensive kidney disease, stage III 9 [...] as of this encounter (statuses as of 12/31/2023) Resolved Problems Problem Noted Date Diagnosed Date [...] as of this encounter (statuses as of 12/31/2023) Immunizations Name Administration Dates Next Due COVID-19 mRNA, LNP-s, No Pre serve, 2-Dose Series (Biocept) 05/27/2021,11/21/2020,10/31/2020 Pneumococcal Conjugate Vacc, 13 Valent (Prevnar) [...] encounter Miscellaneous Notes * Telephone Encounter - Nolan Kolb CPhT - 12/31/2023 2:30 PM EDT Patients insurance would like to inform the office that METHYLPREDNISOLONE 4 MG DOSEPK is not requiring review because No review is needed for this medication, test claims approve as well as future test claims, Thank you, Uche Kolb ([facility]) Manager Massage Department III [facility] ([facility]) (formerly [...] na. Please advise. Thank you, Kalpana Presley CphT Manager Massage Department III [facility] Services([facility]) (formerly Telepharmacy) 12/31/2023,11:39 AM documented in this encounter Plan of Treatment Upcoming Encounters Date Type Department Care Team (Late st Contact Info) Description 01/04/2024 10:00 AM EDT PulmDiagnostic Pulmonary Function Lab, [facility] [address] [place] [address] [address], [address] [place] [address] 04/27/2024 10:45 AM EDT Office Visit Ophthalmology, [facility] [address] [place] [address] Jeremy Shaw DO [address] [facility] [place] [address] Health Maintenance Due Date Last Done Comments Alpha-1 Antitrypsin 1969 Hepatitis C Screening 1969 Cologuard 1996 Colonoscopy 1996 Sigmoidoscopy 1996 Colorectal Cancer Screening 01/22/2012 Fecal Occult Blood Test 01/22/2012 01/22/20 11, 12/21/2008, 12/03/2007 DISCUSS TOBACCO CESSATION (REFER TO SMARTSET #3291) 12/12/2015 12/11/2014 (Discussed) Zoster Vaccines (3 of 3) 03/07/2019 01/10/2019, 02/21 CKD PHOS USE SMARTSET 24676 12/10/202211/22, 12/13/2020, 12/11/2014, Additional history exists COVID-19 [...] Additional history exists CKD HGB USE SMARTSET 28801 08/26/202408/26, 08/26/2023, 05/24/2023, Additional history exists Diabetic [...] D LEVEL ONCE IN A LIFETIME-USE SMARTSET# [id number] Completed 12/10/2021, 03/01/2019, 07/07/2017, Additional history exists [...] Documents on File Type Date Recorded Patient Sanitation Truck Driver Expl estefania STAPLETON 08/03/2018 POL Care Teams Capacity Planning Engineer Relationship Specialty Start Date End Date Franca Lilly MD PCP - General Internal Medicine 07/03/22 documented as of this encounter
--- OUTSIDE RECORDS SUMMARY | 2024-05-16 13:51 | External Medical Summary | Summary of Care ---
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 Quinolones Other (Please comment) 02/19/2003 Hives Moods- becomes nasty Adhesive Tape Rash 01/29/2014 documented as of this encounter (statuses as of 12/16/2023) Medications Medication Sig Dispensed Refills Start Date [...] 11/02/2022 Active Vitamin D (Ergocalciferol) 1.25 MG (66281 UT) Oral Capsule (Drisdol) TAKE 1 CAPSULE BY MOUTH ONE TIME PER WEEK Strength: 1.25 MG (97454 UT) 12 Capsule 1 02/19/2023 Active Additional [...] 90 Tablet 3 10/11/2023 5 Active Nystatin 915475 UNIT/GM External CreamIndications:Can didal skin infection APPLY [...] FOR THRUSH 60 Krunal 1 12/16/2023 Active Hospital, Clinic, or Other Facility Administered Medication Ordered Dose Route Frequency Start Date End Date Status Albuterol Sulfate (Proventil) (2.5 MG/3ML) 0.083% inhalation solution 2.5 mgIndications:Chronic respiratory failure with hypoxia (HCC),COPD, group D, by GOLD 2017 classification ([facility]) 2.5 mg NEBULIZER PRN 12/06/2023 12/05/2024 Acti ve Albuterol Sulfate (Proventil) (5 MG/ML) 0.5% *conc* inhalation solution 2.5 mgIndications:Chronic respiratory failure with hypoxia (HCC),COPD, group D, by GOLD 2017 classification (HCC) 2.5 mg NEBULIZER PRN 12/06/2023 12/05/2024 Acti ve documented as of this encounter (statuses as of 12/16/2023) Active Problems Problem Noted Date Diagnosed Date [...] rinse after steroid. Test performed by Loli DOMESTIC TECHNICIAN CPFT Hypertensive kidney disease, stage III 9 [...] as of this encounter (statuses as of 12/16/2023) Resolved Problems Problem Noted Date Diagnosed Date [...] determined 05/16/2008 06/06/2010 S/P FX WRIST, RIGHT 911/14/200711/2016 Osteoporosis 05/10/2007 12/11/2014 Acute bronchitis, antibiotics not [...] as of this encounter (statuses as of 12/16/2023) Immunizations Name Administration Dates Next Due COVID-19 mRNA, LNP-s, No Pre serve, 2-Dose Series (PrecisionHawk) 05/27/2021,11/21/2020,10/31/2020 Pneumococcal Conjugate Vacc, 13 Valent (Prevnar) [...] Telephone Encounter - Bobbi Fisher LPN - 12/16/2023 1:12 PM EDT Patient was contacted and verbalized understanding. She is not sure why her medications are not at her home yet. They were refilled on 12/09/23 and 12/13/23.. This if for her Trajenta and Clotrimazole. Which does state in note that it will be there by Wednesday. * Telephone Encounter - Franca Lilly MD - 12/16/2023 12:51 PM EDT Dexa scan showed improvement , compared to previous test in 2019 So please continue current med Keep daily Vt D too And repeat test in 2 yrs please documented in this encounter Plan of Treatment Upcoming Encounters Date Type Department Care Team (Late st Contact Info) Description 12/31/2023 12:00 PM EDT Cardiac Studies [place] [address] [place] [address] 01/04/2024 10:00 AM EDT PulmDiagnostic Pulmonary Function Lab, [facility] [address] [facility] [place] [address] [address], [address] [facility] [place] [address] 04/27/2024 10:45 AM EDT Office Visit Ophthalmology, [facility] [address] [facility] [place] [address] Jeremy Shaw, DO [address] [place] [address] Health Maintenance Due Date Last Done Comments Alpha-1 Antitrypsin 1969 Hepatitis C Screening 1969 Cologuard 1996 Colonoscopy 1996 Sigmoidoscopy 1996 Colorectal Cancer Screening 01/22/2012 Fecal Occult Blood Test 01/22/2012 01/22/20 11, 12/21/2008, 12/03/2007 DISCUSS TOBACCO CESSATION (REFER TO SMARTSET #3291) 12/12/2015 12/11/2014 (Discussed) Zoster Vaccines (3 of 3) 03/07/2019 01/10/2019, 02/21 CKD PHOS USE SMARTSET 03151 12/10/202211/22, 12/13/2020, 12/11/2014, Additional history exists COVID-19 [...] Additional history exists CKD HGB USE SMARTSET 73377 08/26/202408/26, 08/26/2023, 05/24/2023, Additional history exists Diabetic [...] D LEVEL ONCE IN A LIFETIME-USE SMARTSET# 70320 Completed 12/10/2021, 03/01/2019, 07/07/2017, Additional history exists [...] Documents on File Type Date Recorded Patient Zipper Sewing Machine Operator Expl anation POL 08/03/2018 POLST Care Teams Lead Designer Relationship Specialty Start Date End Date Franca Lilly MD PCP - General Internal Medicine 07/03/22 documented as of this encounter
--- OUTSIDE RECORDS SUMMARY | 2024-05-16 13:51 | External Medical Summary | Summary of Care ---
Author Name Unknown Organization [facility] Address [address] [place] [address] Phone [phone] Care Team Providers Care Learning Solutions Specialist Name Role Phone Franca Lilly MD Primary Care Provider [phone] Reason for Visit * Reason Onset Date Comments Other 12/31/2023 Encounter Details Date Type Department Care Team (Late st Contact Info) Description 12/31/2023 Telephone [facility] [address] [place] [address] Franca Lilly MD [address] [place] [address] Other Allergies Active Allergy Reactions [...] 11/02/2022 Active Vitamin D (Ergocalciferol) 1.25 MG (73898 UT) Oral Capsule (Drisdol) TAKE 1 CAPSULE BY MOUTH ONE TIME PER WEEK Strength: 1.25 MG (71696 UT) 12 Capsule 1 02/19/2023 Active Additional [...] 90 Tablet 3 10/11/2023 5 Active Nystatin 928767 UNIT/GM External CreamIndications:Can didal skin infection APPLY [...] (HCC),COPD, group D, by GOLD 2017 classification ([facility]) 2.5 mg NEBULIZER PRN 12/06/2023 12/05/2024 Acti [...] rinse after steroid. Test performed by Loli INVESTMENT TRADER CPFT Hypertensive kidney disease, stage III 9 [...] encounter Miscellaneous Notes * Telephone Encounter - Janet Santiago RPh - 12/31/2023 12:03 PM EDT Discussed MTDM referral for COPD mgmt - pt is not interested at this time. Requesting message sent regarding rescue kit HP - sent other enc to PCP. Thank you, Janet Santiago, PharmD Clinical Pharmacist Centralized [facility] Pharmacy Services ([facility]) (formerly Telepharmacy) 12/31/23 12:08 PM [phone] * Telephone Encounter - Kalpana Presley CPhT - 12/31/2023 11:41 AM EDT A refill request was called in for Danni for a COPD rescue kit. The refill request was pended and sent to the appropriate provider in another encounter. Please review and advise if this patient may benefit from MTDM management for COPD. Thank you, Kalpana Presley CphT Waste Paper Hammermill Operator III Centralized Clinical Pharmacy Services([facility]) (formerly Telepharmacy) 12/31/2023,11:41 AM documented in this encounter Plan of Treatment Upcoming Encounters Date Type Department Care Team (Late st Contact Info) Description 01/04/2024 10:00 AM EDT PulmDiagnostic Pulmonary Function Lab, [facility] [address] [place] [address] [address], [address] [place] [address] 04/27/2024 10:45 AM EDT Office Visit Ophthalmology, [facility] [address] [place] [address] Jeremy Shaw, DO [facility] [place] [address] Health Maintenance Due Date Last Done Comments Alpha-1 Antitrypsin 1969 Hepatitis C Screening 1969 Cologuard 1996 Colonoscopy 1996 Sigmoidoscopy 1996 Colorectal Cancer Screening 01/22/2012 Fecal Occult Blood Test 01/22/2012 01/22/20 11, 12/21/2008, 12/03/2007 DISCUSS TOBACCO CESSATION (REFER TO SMARTSET #3291) 12/12/2015 12/11/2014 (Discussed) Zoster Vaccines (3 of 3) 03/07/2019 01/10/2019, 02/21 CKD PHOS USE SMARTSET 18468 12/10/202211/22, 12/13/2020, 12/11/2014, Additional history exists COVID-19 [...] Additional history exists CKD HGB USE SMARTSET 37193 08/26/202408/26, 08/26/2023, 05/24/2023, Additional history exists Diabetic [...] D LEVEL ONCE IN A LIFETIME-USE SMARTSET# 33082 Completed 12/10/2021, 03/01/2019, 07/07/2017, Additional history exists [...] Documents on File Type Date Recorded Patient Registered Public Health Nurse Expl anation POLST 08/03/2018 POLST Care Teams Learning Solutions Specialist Relationship Specialty Start Date End Date Franca Lilly MD PCP - General Internal Medicine 07/03/22 documented as of this encounter
--- OUTSIDE RECORDS SUMMARY | 2024-05-16 13:51 | External Medical Summary | Summary of Care ---
Author Name Unknown Organization [facility] Address [address] [place] [address] Phone [phone] Care Team Providers Care General Laborer Name Role Phone Franca Lilly MD Primary Care Provider Reason for Referral * Medication Prior Authorization - Pending Review Specialty Diagnoses / Procedures Referred By Contac t Referred To Contact Franca Lilly MD [address] [place] [address] Referral ID Status Reason Start Date Expiration Date V isits Requested Visits Authorized [id number] Pending Review 999 195 Reason for Visit * Reason Onset Date Comments Other 12/31/2023 Encounter Details Date Type Department Care Team (Late st Contact Info) Description 12/31/[address] [facility] [address] [place] [address] Franca Lilly MD [address] [place] [address] Other Allergies Active Allergy Reactions [...] 11/02/2022 Active Vitamin D (Ergocalciferol) 1.25 MG (74880 UT) Oral Capsule (Drisdol) TAKE 1 CAPSULE BY MOUTH ONE TIME PER WEEK Strength: 1.25 MG (20244 UT) 12 Capsule 1 02/19/2023 Active Additional [...] 90 Tablet 3 10/11/2023 5 Active Nystatin 383427 UNIT/GM External CreamIndications:Can didal skin infection APPLY [...] ns:COPD, group D, by GOLD 2017 classification ([facility]) Take 1 Tablet by mouth in the [...] (HCC),COPD, group D, by GOLD 2017 classification ([facility]) 2.5 mg NEBULIZER PRN 12/06/2023 12/05/2024 Acti ve Albuterol Sulfate (Proventil) (5 MG/ML) 0.5% *conc* inhalation solution 2.5 mgIndications:Chronic respiratory failure with hypoxia (HCC),COPD, group D, by GOLD 2017 classification ([facility]) 2.5 mg NEBULIZER PRN 12/06/2023 [...] rinse after steroid. Test performed by Loli LEATHER PRODUCTION ARTISAN CPFT Hypertensive kidney disease, stage III 9 [...] mRNA, LNP-s, No Pre serve, 2-Dose Series ([employer] [facility]) 05/27/2021,11/21/2020,10/31/2020 Pneumococcal Conjugate Vacc, 13 Valent (Prevnar) [...] Please advise. Thank you, Kalpana Presley CphT Repair Mechanic III Centralized [facility] Pharmacy Services([facility]) (formerly Telepharmacy) 12/31/2023,11:39 AM documented in this encounter Plan of Treatment Upcoming Encounters Date Type Department Care Team (Late st Contact Info) Description 01/04/2024 10:00 AM EDT PulmDiagnostic Pulmonary Function Lab, [facility] [address] [facility] [place] [address] [address], [address] [facility] [place] [address] 04/27/2024 10:45 AM EDT Office Visit Ophthalmology, [facility] [address] [facility] [place] [address] Jeremy Shaw, DO [address] [facility] [place] [address] Health Maintenance Due Date Last Done Comments Alpha-1 Antitrypsin 1969 Hepatitis C Screening 1969 Cologuard 1996 Colonoscopy 1996 Sigmoidoscopy 1996 Colorectal Cancer Screening 01/22/2012 Fecal Occult Blood Test 01/22/2012 01/22/20 11, 12/21/2008, 12/03/2007 DISCUSS TOBACCO CESSATION (REFER TO SMARTSET #3291) 12/12/2015 12/11/2014 (Discussed) Zoster Vaccines (3 of 3) 03/07/2019 01/10/2019, 02/21 CKD PHOS USE SMARTSET 95891 12/10/202211/22, 12/13/2020, 12/11/2014, Additional history exists COVID-19 [...] Additional history exists CKD HGB USE SMARTSET 83743 08/26/202408/26, 08/26/2023, 05/24/2023, Additional history exists Diabetic [...] D LEVEL ONCE IN A LIFETIME-USE SMARTSET# 48036 Completed 12/10/2021, 03/01/2019, 07/07/2017, Additional history exists [...] Documents on File Type Date Recorded Patient Teaching Artist Expl anation POLST 08/03/2018 POLST Care Teams General Laborer Relationship Specialty Start Date End Date Franca Lilly MD PCP - General Internal Medicine 07/03/22 documented as of this encounter
--- OUTSIDE RECORDS SUMMARY | 2024-05-16 13:51 | External Medical Summary | Summary of Care ---
Author Name Unknown Organization [facility] Address [address] [place] [address] Phone [phone] Care Team Providers Care Gut Puller Name Role Phone Franca Lilly MD Primary Care Provider [phone] Encounter Details Date Type Department Care Team (Late st Contact Info) Description 12/16/2023 Telephone [facility] [address] [place] [address] Franca Lilly MD [address] [place] [address] Allergies Active Allergy Reactions Criticality [...] 11/02/2022 Active Vitamin D (Ergocalciferol) 1.25 MG (73628 UT) Oral Capsule (Drisdol) TAKE 1 CAPSULE BY MOUTH ONE TIME PER WEEK Strength: 1.25 MG (93038 UT) 12 Capsule 1 02/19/2023 Active Additional [...] 90 Tablet 3 10/11/2023 5 Active Nystatin 898054 UNIT/GM External CreamIndications:Can didal skin infection APPLY [...] group D, by GOLD 2017 classification ([facility]) 2.5 mg NEBULIZER PRN 12/06/2023 [...] rinse after steroid. Test performed by Loli MAINTENANCE TECH CPFT Hypertensive kidney disease, stage III [...] 12:00 PM EDT Cardiac Studies Cardiac Studies, [address] [address] 01/04/2024 10:00 AM EDT PulmDiagnostic Pulmonary Function Lab, [facility] [address] [facility] [place] [address] [address], [address] [facility] [place] [address] 04/27/2024 10:45 AM EDT Office Visit Ophthalmology, [facility] 132 [facility] [place] [address] Jeremy Shaw, [address] [place] [address] Health Maintenance Due Date Last Done Comments Alpha-1 Antitrypsin 1969 Hepatitis C Screening 1969 Cologuard 1996 Colonoscopy 1996 Sigmoidoscopy 1996 Colorectal Cancer Screening 01/22/2012 Fecal Occult Blood Test 01/22/2012 01/22/20 11, 12/21/2008, 12/03/2007 DISCUSS TOBACCO CESSATION (REFER TO SMARTSET #3291) 12/12/2015 12/11/2014 (Discussed) Zoster Vaccines (3 of 3) 03/07/2019 01/10/2019, 02/21 CKD PHOS USE SMARTSET 53825 12/10/202211/22, 12/13/2020, 12/11/2014, Additional history exists COVID-19 [...] Additional history exists CKD HGB USE SMARTSET 78195 08/26/202408/26, 08/26/2023, 05/24/2023, Additional history exists Diabetic [...] D LEVEL ONCE IN A LIFETIME-USE SMARTSET# 44273 Completed 12/10/2021, 03/01/2019, 07/07/2017, Additional history exists [...] Documents on File Type Date Recorded Patient Tower Operator Expl anation DAYA 08/03/2018 POL Care Teams Gut Puller Relationship Specialty Start Date End Date Franca Lilly MD PCP - General Internal Medicine 07/03/22 documented as of this encounter
--- OUTSIDE RECORDS SUMMARY | 2024-05-16 13:51 | External Medical Summary | Summary of Care ---
Author Name Unknown Organization [facility] Address [address] [place] [address] Phone [phone] Care Team Providers Care Manager Basketball Name Role Phone Franca Lilly MD Primary Care Provider [phone] Reason for Visit * Reason Onset Date Comments Medication Question 12/13/2023 Encounter Details Date Type Department Care Team (Late st Contact Info) Description 12/13/2023 Telephone [facility] [address] [place] [address] Franca Lilly MD [address] [place] [address] Medication Question Allergies Active Allergy Reactions Criticality Noted Date Comments Morphine And Related 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 Quinolones Other (Please comment) 02/19/2003 Hives Moods- becomes nasty Adhesive Tape Rash 01/29/2014 documented as of this encounter (statuses as of 12/16/2023) Medications Medication Sig Dispensed Refills Start Date End Date Status NEBULIZERS MISCIndications: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, 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) portable nebulizer 1 Each 5 01/24/2014 Active Spacer/Aero-Holding Chambers DEVIIndications: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, severe (HCC) Use with QVar inhaler [...] 11/02/2022 Active Vitamin D (Ergocalciferol) 1.25 MG (50809 UT) Oral Capsule (Drisdol) TAKE 1 CAPSULE BY MOUTH ONE TIME PER WEEK Strength: 1.25 MG (75279 UT) 12 Capsule 1 02/19/2023 Active Additional [...] EVERY DAY 90 Tablet 3 09/08/2023 09/07/19 Active Gabapentin 300 MG Oral Capsule (Neurontin)Indicati ons:Pain of left thigh TAKE 1 CAPSULE BY MOUTH EVERY MORNING AND AT NOON AND TAKE 2 CAPSULES AT BEDTIME 360 Capsule 1 09/08/2023 09/07/19 Active Montelukast Sodium 10 MG Oral Tablet [...] 90 Tablet 3 10/11/2023 10/10/19 Active Nystatin 825184 UNIT/GM External CreamIndications:Ca ndidal skin infection APPLY TO AFFECTED AREA(S) TWICE A DAY FOR 2 WEEKS 60 g 1 11/26/2023 Active linaGLIPtin 5 MG Oral Tablet (Tradjenta) Take 1 Tablet by mouth in the morning. 90 Tablet 3 12/14/2023 Active Clotrimazole 10 MG Mouth/Throat Krunal (Mycelex Krunal)Indications: Thrush DISSOLVE 1 KRUNAL IN MOUTH 5 TIMES A DAY NEEDED FOR THRUSH Strength: 10 MG 60 Krunal 1 12/13/2023 12/16/19 Discontinu ed(Refill) Hospital, Clinic, or Other Facility Administered Medication Ordered Dose Route Frequency Start Date End Date Status Albuterol Sulfate (Proventil) (2.5 MG/3ML) 0.083% inhalation solution 2.5 mgIndications:Chronic respiratory failure with hypoxia (HCC),COPD, group D, by GOLD 2017 classification ([facility]) 2.5 mg NEBULIZER PRN 12/06/2023 12/05/2024 [...] rinse after steroid. Test performed by Loli SHIPPING CLERK/ADMIN CPFT Hypertensive kidney disease, stage III 9 [...] mRNA, LNP-s, No Pre serve, 2-Dose Series ([employer]) 05/27/2021,11/21/2020,10/31/2020 Pneumococcal Conjugate Vacc, 13 Valent (Prevnar) [...] encounter Miscellaneous Notes * Telephone Encounter - Katherine Becker PHARM Tech - 12/16/2023 10:42 AM EDT Patient called in today stating that she wanted to know where her medications were at for trajenta and cltrimazole. I checked with mail order and called [facility] and got both scripts taken care of.Both scripts will be sent to patient by Wednesday. Thank you, Katherine Becker Carton Making Machine Operator I [facility] ([facility])(formerly Telepharmacy) 12/16/2023,10:56 AM * Telephone Encounter - Franca Lilly MD - 12/14/2023 7:29 AM EDT Sent out medication * Telephone Encounter - Jany Poon LPN - 12/13/2023 6:31 PM EDT Visit date not found 08/26/2023 (in office), 05/01/2020 (telemedicine) Pending Prescriptions: Disp Refills linaGLIPtin 5 MG Oral Tablet (Tradjenta) 30 Tab*11 Sig: Take 1 Tablet by mouth in the morning. * Telephone Encounter - Jocelyn Lang PHARM Tech - 12/13/2023 4:43 PM EDT Patient requesting refills for Trajenta. Upon chart review, medication is listed as discontinued, with discontinuation reason as "none". Please advise if you wish to continue this therapy for the patient. Previous provider was Dr Davey. Pt advised Dr Lilly Is to write now. If appropriate please [facility] Thank You, Jocelyn Lang [facility] Director Of Spa And Guest Experience III [facility] Pharmacy Services ([facility]PS) (Formerly Telepharmacy) 12/13/2023, 4:48 PM documented in this encounter Plan of Treatment Upcoming Encounters Date Type Department Care Team (Late st Contact Info) Description 12/31/2023 12:00 PM EDT Cardiac Studies Cardiac Studies, [address] [address] 01/04/2024 10:00 AM EDT PulmDiagnostic Pulmonary Function Lab, [facility] 132 [facility] [place] [address] [address], [address] 132 [facility] [place] [address] 04/27/2024 10:45 AM EDT Office Visit Ophthalmology, [facility] [address] [facility] [place] [address] Jeremy Shaw, DO [address] [facility] [place] [address] Health Maintenance Due Date Last Done Comments Alpha-1 Antitrypsin 1969 Hepatitis C Screening 1969 Cologuard 1996 Colonoscopy 1996 Sigmoidoscopy 1996 Colorectal Cancer Screening 01/22/2012 Fecal Occult Blood Test 01/22/2012 01/22/20 11, 12/21/2008, 12/03/2007 DISCUSS TOBACCO CESSATION (REFER TO SMARTSET #3291) 12/12/2015 12/11/2014 (Discussed) Zoster Vaccines (3 of 3) 03/07/2019 01/10/2019, 02/21 CKD PHOS USE SMARTSET 67646 12/10/202211/22, 12/13/2020, 12/11/2014, Additional history exists COVID-19 [...] Additional history exists CKD HGB USE SMARTSET 66633 08/26/202408/26, 08/26/2023, 05/24/2023, Additional history exists Diabetic [...] D LEVEL ONCE IN A LIFETIME-USE SMARTSET# 55259 Completed 12/10/2021, 03/01/2019, 07/07/2017, Additional history exists [...] as of this encounter Visit Diagnoses Diagnosis Thrush Candidiasis of mouth documented in this encounter Advance Directives Documents on File Type Date Recorded Patient Theatrical Performer Expl anation DAYA 08/03/2018 POL Care Teams Manager Basketball Relationship Specialty Start Date End Date Franca Lilly MD PCP - General Internal Medicine 07/03/22 documented as of this encounter
--- OUTSIDE RECORDS SUMMARY | 2024-05-16 13:51 | External Medical Summary | Summary of Care ---
Author Name Unknown Organization [facility] Address [address] [place] [address] Phone [phone] Care Team Providers Care Mri Assistant Name Role Phone Franca Lilly MD Primary Care Provider [phone] Reason for Visit * Reason Onset Date Comments Medication Refill 12/09/2023 Encounter Details Date Type Department Care Team (Late st Contact Info) Description 12/09/2023 Refill [facility] [address] [place] [address] Franca Lilly MD [address] [place] [address] Thrush Allergies Active Allergy Reactions Criticality Noted Date Comments Morphine And Related 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 Quinolones Other (Please comment) 02/19/2003 Hives Moods- becomes nasty Adhesive Tape Rash 01/29/2014 documented as of this encounter (statuses as of 12/16/2023) Medications Medication Sig Dispensed Refills Start Date End Date Status NEBULIZERS MISCIndications: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, 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) portable nebulizer 1 Each 5 01/24/2014 Active Spacer/Aero-Holding Chambers DEVIIndications: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, 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 (HCC) Use with QVar inhaler [...] 11/02/2022 Active Vitamin D (Ergocalciferol) 1.25 MG (29456 UT) Oral Capsule (Drisdol) TAKE 1 CAPSULE BY MOUTH ONE TIME PER WEEK Strength: 1.25 MG (71213 UT) 12 Capsule 1 02/19/2023 Active Additional [...] 90 Tablet 3 10/11/2023 10/10/19 Active Nystatin 822982 UNIT/GM External CreamIndications:Ca ndidal skin infection APPLY TO AFFECTED AREA(S) TWICE A DAY FOR 2 WEEKS 60 g 1 11/26/2023 Active Clotrimazole 10 MG Mouth/Throat Krunal (Mycelex Krunal)Indications: Thrush DISSOLVE 1 KRUNAL IN MOUTH 5 TIMES A DAY NEEDED FOR THRUSH 60 Krunal 1 12/16/2023 Active Clotrimazole 10 MG Mouth/Throat Krunal (Mycelex Krunal)Indications: Thrush DISSOLVE 1 KRUNAL IN MOUTH 5 TIMES A DAY NEEDED FOR THRUSH Strength: 10 MG 60 Krunal 1 08/26/2023 12/09/19 Discontinu ed(Refill) Clotrimazole 10 MG Mouth/Throat Krunal (Mycelex Krunal)Indications: Thrush DISSOLVE 1 KRUNAL IN MOUTH 5 TIMES A DAY NEEDED FOR THRUSH Strength: 10 MG 60 Krunal 1 12/09/2023 04/22/20 24 Discontinu ed(Refill) Clotrimazole 10 MG Mouth/Throat Krunal (Mycelex Krunal)Indications: Thrush DISSOLVE 1 KRUNAL IN MOUTH 5 TIMES A DAY NEEDED FOR THRUSH Strength: 10 MG 60 Krunal 1 12/13/2023 12/16/19 24 Discontinu ed(Refill) Hospital, Clinic, or Other [...] (HCC),COPD, group D, by GOLD 2017 classification ([facility]) 2.5 mg NEBULIZER PRN 12/06/2023 12/05/2024 Acti [...] rinse after steroid. Test performed by Loli TECHNICAL STAFF ENGINEER CPFT Hypertensive kidney disease, stage III 9 [...] mRNA, LNP-s, No Pre serve, 2-Dose Series ([employer]) 05/27/2021,11/21/2020,10/31/2020 Pneumococcal Conjugate Vacc, 13 Valent (Prevnar) [...] encounter Miscellaneous Notes * Addendum Note - Yennifer Conde RPh - 12/16/2023 10:34 AM EDTAddended by: YENNIFER CONDE on: 12/16/2023 10:34 AM Modules accepted: Orders * Telephone Encounter - Yennifer Conde RPh - 12/16/2023 10:33 AM EDT RX documented as "phone order". Removed "strength 10" from sig. Resent to pharmacy as requested. Documented as "ePrescribing" now. Thank you, Yennifer Conde, PharmD Clinical Pharmacist [facility]acy Services ([facility]PS) (formerly Telepharmacy) [phone] 12/16/2023, 10:33 AM * Telephone Encounter - Salome Almendarez [facility] - 12/13/2023 4:56 PM EDTSigned Prescriptions: Disp Refills Clotrimazole 10 MG Mouth/Throat Krunal (My*60 Tro*1 Sig: DISSOLVE 1 KRUNAL IN MOUTH 5 TIMES A DAY NEEDED FOR THRUSH Strength: 10 MGAuthorizing Provider: Imer LILLY User: SALOME ALMENDAREZ * Addendum Note - Salome Almendarez [facility] - 12/13/2023 4:56 PM EDTAddended by: SALOME ALMENDAREZ on: 12/13/2023 04:56 PM Modules accepted: Orders * Telephone Encounter - Salome Almendarez [facility] - 12/13/2023 4:55 PM EDT Pharmacy states they did not receive transmitted script from 12/09/2023. Pharmacist resending again. Thank you, Salome Almendarez [facility] Clinical Pharmacist Centralized Clinical Pharmacy Services ([facility]PS) (formerly Telepharmacy) 12/13/23 4:55 PM [phone] * Addendum Note - Jocelyn Elizabeth, mental health aide - 12/13/2023 4:47 PM EDTAddended by: JOCELYN ELIZABETH on: 12/13/2023 04:47 PM Modules accepted: Orders * Telephone Encounter - Jocelyn Elizabeth PHARM Tech - 12/13/2023 4:42 PM EDT Please resend Rx to [facility]. Confirmed pharmacy did not receive original prescription. Pending Prescriptions: Disp Refills Clotrimazole 10 MG Mouth/Throat Krunal (M*60 Tro*1 Sig: DISSOLVE 1 KRUNAL IN MOUTH 5 TIMES A DAY NEEDED FOR THRUSH Strength: 10 MG Signed Prescriptions: Disp Refills Clotrimazole 10 MG Mouth/Throat Krunal (My*60 Tro*1 Sig: DISSOLVE 1 KRUNAL IN MOUTH 5 TIMES A DAY NEEDED FOR THRUSH Strength: 10 MG Authorizing Provider: FRANCA LILLY Last Visit: 08/26/2023 (in office), 05/01/2020 (telemedicine) Visit date not found If no future appointments scheduled, and last appointment is greater than a year ago, please schedule patient for a follow-up appointment Last date the medication was ordered: 12/08 Patient Phone Numbers Labs: Lab Results Component [...] 2019 03:00 PM * Telephone Encounter - Franca Lilly MD - 12/09/2023 3:01 PM EDTSigned Prescriptions: Disp Refills Clotrimazole 10 MG Mouth/Throat Krunal (My*60 Tro*1 Sig: DISSOLVE 1 KRUNAL IN MOUTH 5 TIMES A DAY NEEDED FOR THRUSH Strength: 10 MG Authorizing Provider: FRANCA LILLY * Telephone Encounter - Yennifer Conde [facility] - 12/09/2023 2:52 PM EDTPending Prescriptions: Disp Refills Clotrimazole 10 MG Mouth/Throat Krunal (My*60 Tro*1 Sig: DISSOLVE 1 KRUNAL IN MOUTH 5 TIMES A DAY NEEDED FOR THRUSH Strength: 10 MG * Telephone Encounter - Yennifer Conde [facility] - 12/09/2023 2:52 PM EDT Telepharmacy is currently not authorized to approve refills for the pended medication(s) per refillprotocol. Please approve if appropriate. Pending Prescriptions: Disp Refills Clotrimazole 10 MG Mouth/Throat Krunal (My*60 Tro*1 Sig: DISSOLVE 1 KRUNAL IN MOUTH 5 TIMES A DAY NEEDED FOR THRUSH Strength: 10 MG 08/26/2023 (in office), 05/01/2020 (telemedicine) Visit date not found If no future appointments scheduled, and last appointment is greater than a year ago, please schedule patient for a follow-up appointment Last date the medication was ordered: 08/26/23 Pharmacy: [facility] Is this request for a controlled substance? No Urine Drug Screen:No results found. However, due [...] 2019 03:00 PM * Telephone Encounter - Dora Keys CPhT - 12/09/2023 2:10 PM EDT Pt requesting priority Did you pend patient's preferred pharmacy and medication before forwarding?yes Pharmacy: [facility] Pending Prescriptions: Disp Refills Clotrimazole 10 MG Mouth/Throat Krunal (M*60 Tro*1 Sig: DISSOLVE 1 KRUNAL IN MOUTH 5 TIMES A DAY NEEDED FOR THRUSH Strength: 10 MG Last Visit: 08/26/2023 (in office), 05/01/2020 (telemedicine) Next Visit: Visit date not found If no future appointments scheduled, and last appointment is greater than a year ago, please schedule patient for a follow-up appointment Last date the medication was ordered: 08/26/2023 Is this request for a controlled substance?No [...] 12:00 PM EDT Cardiac Studies [address], [address] [id number] 01/04/2024 10:00 AM EDT PulmDiagnostic Pulmonary Function Lab, [facility] 132 [facility] [place] [address] [address], [address] [facility] [place] [address] 04/27/2024 10:45 AM EDT Office Visit Ophthalmology, [facility] [address] [facility] [place] [address] Jeremy Shaw, DO [address] [facility] [place] [address] Health Maintenance Due Date Last Done Comments Alpha-1 Antitrypsin 1969 Hepatitis C Screening 1969 Cologuard 1996 Colonoscopy 1996 Sigmoidoscopy 1996 Colorectal Cancer Screening 01/22/2012 Fecal Occult Blood Test 01/22/2012 01/22/20 11, 12/21/2008, 12/03/2007 DISCUSS TOBACCO CESSATION (REFER TO SMARTSET #3291) 12/12/2015 12/11/2014 (Discussed) Zoster Vaccines (3 of 3) 03/07/2019 01/10/2019, 02/21 CKD PHOS USE SMARTSET 66430 12/10/202211/22, 12/13/2020, 12/11/2014, Additional history exists COVID-19 [...] Additional history exists CKD HGB USE SMARTSET 56187 08/26/202408/26, 08/26/2023, 05/24/2023, Additional history exists Diabetic [...] D LEVEL ONCE IN A LIFETIME-USE SMARTSET# 53700 Completed 12/10/2021, 03/01/2019, 07/07/2017, Additional history exists [...] Documents on File Type Date Recorded Patient Tinner Helper Expl anation POLST 08/03/2018 POLST Care Teams Mri Assistant Relationship Specialty Start Date End Date Franca Lilly MD PCP - General Internal Medicine 07/03/22 documented as of this encounter
--- OUTSIDE RECORDS SUMMARY | 2024-05-16 13:52 | External Medical Summary | Summary of Care ---
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 Quinolones Other (Please comment) 02/19/2003 Hives Moods- becomes nasty Adhesive Tape Rash 01/29/2014 documented as of this encounter (statuses as of 12/13/2023) Medications Medication Sig Dispensed Refills Start Date End Date Status NEBULIZERS MISCIndications: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, 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) portable nebulizer 1 Each 5 01/24/2014 Active Spacer/Aero-Holding Chambers DEVIIndications: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, severe (HCC) Use with QVar inhaler [...] 11/02/2022 Active Vitamin D (Ergocalciferol) 1.25 MG (99465 UT) Oral Capsule (Drisdol) TAKE 1 CAPSULE BY MOUTH ONE TIME PER WEEK Strength: 1.25 MG (29952 UT) 12 Capsule 1 02/19/2023 Active Additional [...] TABLET BY MOUTH EVERY MORNING 90 Tablet 10/11/2023 10/10/19 Active Nystatin 835739 UNIT/GM External CreamIndications:Ca ndidal skin infection APPLY TO AFFECTED AREA(S) TWICE A DAY FOR 2 WEEKS 60 g 1 11/26/2023 Active Clotrimazole 10 MG Mouth/Throat Krunal (Mycelex Krunal)Indications: Thrush DISSOLVE 1 KRUNAL IN MOUTH 5 TIMES A DAY NEEDED FOR THRUSH Strength: 10 MG 60 Krunal 1 12/09/2023 Active Clotrimazole 10 MG Mouth/Throat Krunal (Mycelex Krunal)Indications: Thrush DISSOLVE 1 KRUNAL IN MOUTH 5 TIMES A DAY NEEDED FOR THRUSH Strength: 10 MG 60 Krunal 08/26/2023 12/09/19 Discontinu ed(Refill) Hospital, Clinic, or Other Facility [...] as of this encounter (statuses as of 12/13/2023) Active Problems Problem Noted Date Diagnosed Date [...] rinse after steroid. Test performed by Loli PARTICLE BOARD SUPERVISOR CPFT Hypertensive kidney disease, stage III [...] as of this encounter (statuses as of 12/13/2023) Resolved Problems Problem Noted Date Diagnosed Date [...] as of this encounter (statuses as of 12/13/2023) Immunizations Name Administration Dates Next Due COVID-19 mRNA, LNP-s, No Pre serve, 2-Dose Series ([employer]) 05/27/2021,11/21/2020,10/31/2020 Pneumococcal Conjugate Vacc, 13 Valent (Prevnar) [...] encounter Miscellaneous Notes * Telephone Encounter - Jocelyn Lang PHARM Tech - 12/13/2023 4:42 PM EDT Pt calling to request clortrimazole. Informed pt that RX is available at their pharmacy. Pt verbalized understanding and stated they will check with their pharmacy regarding this medication. Thank You, Jocelyn Lang [facility] Laundry Machine Tender III Centralized Clinical Pharmacy Services ([facility]PS) (Formerly Telepharmacy) 12/13/2023, 4:42 PM * Telephone Encounter - Franca Lilly MD - 12/09/2023 3:01 PM EDTSigned Prescriptions: Disp Refills Clotrimazole 10 MG Mouth/Throat Krunal (My*60 Tro*1 Sig: DISSOLVE 1 KRUNAL IN MOUTH 5 TIMES A DAY NEEDED FOR THRUSH Strength: 10 MG Authorizing Provider: FRANCA LILLY * Telephone Encounter - Lary Barrett, [facility] - 12/09/2023 2:52 PM EDTPending Prescriptions: Disp Refills Clotrimazole 10 MG Mouth/Throat Krunal (My*60 Tro*1 Sig: DISSOLVE 1 KRUNAL IN MOUTH 5 TIMES A DAY NEEDED FOR THRUSH Strength: 10 MG * Telephone Encounter - Lary Barrett [facility] - 12/09/2023 2:52 PM EDT Telepharmacy is [...] date the medication was ordered: 08/26/23 [facility] Is this request for a [...] preferred pharmacy and medication before forwarding?yes Pharmacy: [facility] Pending Prescriptions: Disp Refills Clotrimazole [...] Care Team (Late st Contact Info) Description 12/14/2023 11:00 AM EDT [address]iology[address] [address] 12/31/2023 12:00 PM EDT Cardiac Studies [address] Studies, [address] [address] 01/04/2024 10:00 AM EDT PulmDiagnostic Pulmonary Function Lab, [facility] 132 [facility] [place] [address] [address], [address] 132 [facility] [place] [address] 04/27/2024 10:45 AM EDT Office Visit Ophthalmology, [facility] 132 [facility] [place] [address] Jeremy Shaw, DO [address] [place] [address] Health Maintenance Due Date Last Done Comments Alpha-1 Antitrypsin 1969 Hepatitis C Screening 1969 Cologuard 1996 Colonoscopy 1996 Sigmoidoscopy 1996 Colorectal Cancer Screening 01/22/2012 Fecal Occult Blood Test 01/22/2012 01/22/20 11, 12/21/2008, 12/03/2007 DISCUSS TOBACCO CESSATION (REFER TO SMARTSET #3291) 12/12/2015 12/11/2014 (Discussed) Zoster Vaccines (3 of 3) 03/07/2019 01/10/2019, 02/21 DXA Scan 12/07/2020 12/07/2018, 05/0 11/2014, 07/24/2009 CKD PHOS USE SMARTSET 27303 12/10/202211/22, 12/13/2020, 12/11/2014, Additional history exists COVID-19 [...] Additional history exists CKD HGB USE SMARTSET 25458 08/26/202408/26, 08/26/2023, 05/24/2023, Additional history exists Diabetic Eye Exam 08/26/2024 08/26/2023, , 11/25/2017 O2 ASSESSMENT COMPLETED IN PAST YEAR FOR COPD 08/26/2024 08/26/2023 Lipid Panel 12/10/2026 12/10/2021, 11/22, 03/01/2019, Additional history exists DTaP,Tdap,and Td Vaccines (4 - Td or Tdap) 08/03/2028 08/03/2018, 08/03/2018, 05/16/2008 Pneumococcal Vaccine: 65+ Years Completed 07/07/2017, 12/02/2015, 08/04/2006, Additional history exists Lung Cancer Screening Completed 04/15/2020 , 05/11/2006, 05/03/2003 VITAMIN D LEVEL ONCE IN A LIFETIME-USE SMARTSET# 55734 Completed 12/10/2021, 03/01/2019, 07/07/2017, Additional history exists [...] Documents on File Type Date Recorded Patient Residential Director Expl anation DAYA 08/03/2018 POLST Care Teams Lining Baster Relationship Specialty Start Date End Date Franca Lilly MD PCP - General Internal Medicine 07/03/22 documented as of this encounter
--- OUTSIDE RECORDS SUMMARY | 2024-05-16 13:52 | External Medical Summary | Summary of Care ---
Author Name Unknown Organization [facility] Address [address] [place] [address] Phone [phone] Care Team Providers Care Inker Name Role Phone Franca Lilly MD Primary Care Provider [phone] Reason for Visit * Reason Onset Date Comments Medication Question 12/13/2023 Encounter Details Date Type Department Care Team (Late st Contact Info) Description 12/13/2023 Telephone [facility] [address] [place] [address] Franca Lilly MD [address] [place] [address] Medication Question Allergies Active Allergy Reactions Criticality Noted Date Comments Morphine And Related 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 Quinolones Other (Please comment) 02/19/2003 Hives Moods- becomes nasty Adhesive Tape Rash 01/29/2014 documented as of this encounter (statuses as of 12/14/2023) Medications Medication Sig Dispensed Refills Start Date [...] 11/02/2022 Active Vitamin D (Ergocalciferol) 1.25 MG (94432 UT) Oral Capsule (Drisdol) TAKE 1 CAPSULE BY MOUTH ONE TIME PER WEEK Strength: 1.25 MG (34326 UT) 12 Capsule 1 02/19/2023 Active Additional [...] 90 Tablet 3 10/11/2023 5 Active Nystatin 985101 UNIT/GM External CreamIndications:Can didal skin infection APPLY TO AFFECTED AREA(S) TWICE A DAY FOR 2 WEEKS 60 g 1 11/26/2023 Active Clotrimazole 10 MG Mouth/Throat Krunal (Mycelex Krunal)Indications:T hrush DISSOLVE 1 KRUNAL IN MOUTH 5 TIMES A DAY NEEDED FOR THRUSH Strength: 10 MG 60 Krunal 1 12/13/2023 Active linaGLIPtin 5 MG Oral Tablet (Tradjenta) Take 1 Tablet by mouth in the morning. 90 Tablet 3 12/14/2023 Active Hospital, Clinic, or Other Facility Administered Medication Ordered Dose Route Frequency Start Date End Date Status Albuterol Sulfate (Proventil) (2.5 MG/3ML) 0.083% inhalation solution 2.5 mgIndications:Chronic respiratory failure with hypoxia (HCC),COPD, group D, by GOLD 2017 classification ([facility]) 2.5 mg NEBULIZER PRN 12/06/2023 12/05/2024 Acti ve Albuterol Sulfate (Proventil) (5 MG/ML) 0.5% *conc* inhalation solution 2.5 mgIndications:Chronic respiratory failure with hypoxia (HCC),COPD, group D, by GOLD 2017 classification (HCC) 2.5 mg NEBULIZER PRN 12/06/2023 12/05/2024 Acti ve documented as of this encounter (statuses as of 12/14/2023) Active Problems Problem Noted Date Diagnosed Date [...] rinse after steroid. Test performed by Loli DEBURRING AND TOOLING MACHINE OPERATOR CPFT Hypertensive kidney disease, stage [...] as of this encounter (statuses as of 12/14/2023) Resolved Problems Problem Noted Date Diagnosed Date [...] as of this encounter (statuses as of 12/14/2023) Immunizations Name Administration Dates Next Due COVID-19 mRNA, LNP-s, No Pre serve, 2-Dose Series (AOL) 05/27/2021,11/21/2020,10/31/2020 Pneumococcal Conjugate Vacc, 13 Valent (Prevnar) [...] please send a 90 day prescription to [facility] Thank You, Jocelyn Lang [facility] Web Content Executive III Centralized Clinical Pharmacy Services (CCPS) (Formerly Telepharmacy) 12/13/2023, 4:48 PM documented in this encounter Plan of Treatment Upcoming Encounters Date Type Department Care Team (Late st Contact Info) Description 12/14/2023 11:00 AM EDT Imaging Radiology, [facility] [address] [facility] [address] 12/31/2023 12:00 PM EDT Cardiac Studies Cardiac Studies, [address] [place] [address] 01/04/2024 10:00 AM EDT PulmDiagnostic Pulmonary Function Lab, [facility] [address] [facility] [place] [address] [address], [address] [facility] [place] [address] 04/27/2024 10:45 AM EDT Office Visit Ophthalmology, [facility] [address] [facility] [place] [address] Jeremy Shaw, DO [facility] [place] [address] Health Maintenance Due Date Last Done Comments Alpha-1 Antitrypsin 1969 Hepatitis C Screening 1969 Cologuard 1996 Colonoscopy 1996 Sigmoidoscopy 1996 Colorectal Cancer Screening 01/22/2012 Fecal Occult Blood Test 01/22/2012 01/22/20 11, 12/21/2008, 12/03/2007 DISCUSS TOBACCO CESSATION (REFER TO SMARTSET #3291) 12/12/2015 12/11/2014 (Discussed) Zoster Vaccines (3 of 3) 03/07/2019 01/10/2019, 02/21 DXA Scan 12/07/2020 12/07/2018, 05/0 11/2014, 07/24/2009 CKD PHOS USE SMARTSET 45951 12/10/202211/22, 12/13/2020, 12/11/2014, Additional history exists COVID-19 [...] Additional history exists CKD HGB USE SMARTSET 81203 08/26/202408/26, 08/26/2023, 05/24/2023, Additional history exists Diabetic [...] D LEVEL ONCE IN A LIFETIME-USE SMARTSET# 01421 Completed 12/10/2021, 03/01/2019, 07/07/2017, Additional history exists [...] Documents on File Type Date Recorded Patient Slasher Runner Expl anation POLST 08/03/2018 POLST Care Teams Inker Relationship Specialty Start Date End Date Franca Lilly MD PCP - General Internal Medicine 07/03/22 documented as of this encounter
--- OUTSIDE RECORDS SUMMARY | 2024-05-16 13:52 | External Medical Summary | Summary of Care ---
Author Name Unknown Organization [facility] Address [address] [place] [address] Phone [phone] Care Team Providers Care Body Line Finisher Name Role Phone Franca Lilly MD Primary Care Provider [phone] Reason for Visit * Reason Onset Date Comments Medication Refill 12/09/2023 Encounter Details Date Type Department Care Team (Late st Contact Info) Description 12/09/2023 Refill [facility] [address] [place] [address] Franca Lilly MD [address] [place] [address] Thrush Allergies Active Allergy Reactions Criticality Noted Date Comments Morphine And Related 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 Quinolones Other (Please comment) 02/19/2003 Hives Moods- becomes nasty Adhesive Tape Rash 01/29/2014 documented as of this encounter (statuses as of 12/13/2023) Medications Medication Sig Dispensed Refills Start Date End Date Status NEBULIZERS MISCIndications:GASTROENTEROLOGY TECHNICIAN D, 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) portable nebulizer 1 Each 5 01/24/2014 Active Spacer/Aero-Holding Chambers DEVIIndications:GASTROENTEROLOGY TECHNICIAN D, severe (HCC) Use with QVar [...] 11/02/2022 Active Vitamin D (Ergocalciferol) 1.25 MG (22834 UT) Oral Capsule (Drisdol) TAKE 1 CAPSULE BY MOUTH ONE TIME PER WEEK Strength: 1.25 MG (34289 UT) 12 Capsule 1 02/19/2023 Active Additional [...] MORNING 90 Tablet 10/11/2023 10/10/19 Active Nystatin 477302 UNIT/GM External CreamIndications:Ca ndidal skin infection APPLY TO AFFECTED AREA(S) TWICE A DAY FOR 2 WEEKS 60 g 1 11/26/2023 Active Clotrimazole 10 MG Mouth/Throat Krunal (Mycelex Krunal)Indications: Thrush DISSOLVE 1 KRUNAL IN MOUTH 5 TIMES A DAY NEEDED FOR THRUSH Strength: 10 MG 60 Krunal 1 12/13/2023 Active Clotrimazole 10 MG Mouth/Throat Krunal (Mycelex Krunal)Indications: Thrush DISSOLVE 1 KRUNAL IN MOUTH 5 TIMES A DAY NEEDED FOR THRUSH Strength: 10 MG 60 Krunal 08/26/2023 12/09/19 Discontinu ed(Refill) Clotrimazole 10 MG Mouth/Throat Krunal (Mycelex Krunal)Indications: Thrush DISSOLVE 1 KRUNAL IN MOUTH 5 TIMES A DAY NEEDED FOR THRUSH Strength: 10 MG 60 Krunal 1 12/09/2023 12/13/19 24 Discontinu ed(Refill) Hospital, Clinic, or Other [...] rinse after steroid. Test performed by Loli PRESS CLIPPER CPFT Hypertensive kidney disease, stage III 9 [...] mRNA, LNP-s, No Pre serve, 2-Dose Series (Verafin) 05/27/2021,11/21/2020,10/31/2020 Pneumococcal Conjugate Vacc, 13 Valent (Prevnar) [...] encounter Miscellaneous Notes * Telephone Encounter - Salome Almendarez RPh - 12/13/2023 4:56 PM EDTSigned Prescriptions: Disp Refills Clotrimazole 10 MG Mouth/Throat Krunal (My*60 Tro*1 Sig: DISSOLVE 1 KRUNAL IN MOUTH 5 TIMES A DAY NEEDED FOR THRUSH Strength: 10 MGAuthorizing Provider: Imer LILLY User: SALOME ALMENDAREZ * Addendum Note - Salome Almendarez RPh - 12/13/2023 4:56 PM EDTAddended by: SALOME ALMENDAREZ on: 12/13/2023 04:56 PM Modules accepted: Orders * Telephone Encounter - Salome Almendarez RP - 12/13/2023 4:55 PM EDT Pharmacy states they did not receive transmitted script from 12/09/2023. Pharmacist resending again. Thank you, Salome Almendarez [facility] Clinical Pharmacist Centralized Clinical Pharmacy Services (CCPS) (formerly Telepharmacy) 12/13/23 4:55 PM [phone] * Addendum Note - Jocelyn Elizabeth PHARM Tech - 12/13/2023 4:47 PM EDTAddended by: JOCELYN ELIZABETH on: 12/13/2023 04:47 PM Modules accepted: Orders * Telephone Encounter - Jocelyn Elizabeth labor arbitrator - 12/13/2023 4:42 PM EDT Please resend Rx to [facility]. Confirmed pharmacy did not [...] FRANCA LILLY * Telephone Encounter - Lary Barrett [facility] - 12/09/2023 2:52 PM EDTPending Prescriptions: Disp Refills Clotrimazole 10 MG Mouth/Throat Krunal (My*60 Tro*1 Sig: DISSOLVE 1 KRUNAL IN MOUTH 5 TIMES A DAY NEEDED FOR THRUSH Strength: 10 MG * Telephone Encounter - Lary Barrett RPh - 12/09/2023 2:52 PM EDT Telepharmacy is [...] date the medication was ordered: 08/26/23 Pharmacy: [facility] Is this request for a [...] 03:00 PM * Telephone Encounter - Dora Keys, machine cloth measurer - 12/09/2023 2:10 PM EDT Pt requesting priority Did you pend patient's preferred pharmacy and medication before forwarding?yes Pharmacy: [facility] Pending Prescriptions: Disp Refills [...] Description 12/14/2023 11:00 AM EDT Imaging Radiology, [place] [address] [place] [address] 12/31/2023 12:00 PM EDT Cardiac Studies [address], [address] [address] 01/04/2024 10:00 AM EDT PulmDiagnostic Pulmonary Function Lab, [facility] [place] [address] [address], [address] [facility] [place] [address] 04/27/2024 10:45 AM EDT Office Visit Ophthalmology, [facility] [address] [facility] [place] [address] Jeremy Shaw, DO [address] [facility] [place] [address] Health Maintenance Due Date Last Done Comments Alpha-1 Antitrypsin 1969 Hepatitis C Screening 1969 Cologuard 1996 Colonoscopy 1996 Sigmoidoscopy 1996 Colorectal Cancer Screening 01/22/2012 Fecal Occult Blood Test 01/22/2012 01/22/20 11, 12/21/2008, 12/03/2007 DISCUSS TOBACCO CESSATION (REFER TO SMARTSET #3291) 12/12/2015 12/11/2014 (Discussed) Zoster Vaccines (3 of 3) 03/07/2019 01/10/2019, 02/21 DXA Scan 12/07/2020 12/07/2018, 05/11/2014, 07/24/2009 CKD PHOS USE SMARTSET 60076 12/10/202211/22, 12/13/2020, 12/11/2014, Additional history exists COVID-19 [...] Additional history exists CKD HGB USE SMARTSET 17229 08/26/202408/26, 08/26/2023, 05/24/2023, Additional history exists Diabetic [...] D LEVEL ONCE IN A LIFETIME-USE SMARTSET# 41696 Completed 12/10/2021, 03/01/2019, 07/07/2017, Additional history exists [...] Documents on File Type Date Recorded Patient Office Worker Expl anation POLST 08/03/2018 POLST Care Teams Body Line Finisher Relationship Specialty Start Date End Date Franca Lilly MD PCP - General Internal Medicine 07/03/22 documented as of this encounter
--- OUTSIDE RECORDS SUMMARY | 2024-05-16 13:52 | External Medical Summary | Summary of Care ---
Author Name Unknown Organization [facility] Address [address] [place] [address] Phone [phone] Care Team Providers Care Afterschool Name Role Phone Franca Lilly MD Primary Care Provider [phone] Reason for Visit * Reason Onset Date Comments Medication Refill 12/09/2023 Encounter Details Date Type Department Care Team (Late st Contact Info) Description 12/09/2023 Refill [facility] [address] [place] [address] Franca Lilly MD [address] [place] [address] Thrush Allergies Active Allergy Reactions Criticality Noted Date Comments Morphine And Related 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 Quinolones Other (Please comment) 02/19/2003 Hives Moods- becomes nasty Adhesive Tape Rash 01/29/2014 documented as of this encounter (statuses as of 12/13/2023) Medications Medication Sig Dispensed Refills Start Date End Date Status NEBULIZERS MISCIndications:FIRE INFORMATION OFFICER D, 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) portable nebulizer 1 Each 5 01/24/2014 Active Spacer/Aero-Holding Chambers DEVIIndications:FIRE INFORMATION OFFICER D, severe (HCC) Use with QVar inhaler [...] 11/02/2022 Active Vitamin D (Ergocalciferol) 1.25 MG (64054 UT) Oral Capsule (Drisdol) TAKE 1 CAPSULE BY MOUTH ONE TIME PER WEEK Strength: 1.25 MG (91634 UT) 12 Capsule 1 02/19/2023 Active Additional [...] MORNING 90 Tablet 10/11/2023 10/10/19 Active Nystatin 488336 UNIT/GM External CreamIndications:Ca ndidal skin infection APPLY [...] rinse after steroid. Test performed by Loli CARTOGRAPHIC ENGINEER CPFT Hypertensive kidney disease, stage III [...] mRNA, LNP-s, No Pre serve, 2-Dose Series (Kauli) 05/27/2021,11/21/2020,10/31/2020 Pneumococcal Conjugate Vacc, 13 Valent (Prevnar) [...] encounter Miscellaneous Notes * Addendum Note - Jocelyn Elizabeth PHARM Tech - 12/13/2023 4:47 PM EDTAddended by: JOCELYN ELIZABETH on: 12/13/2023 04:47 PM Modules accepted: Orders * Telephone Encounter - Jocelyn Elizabeth PHARM Tech - 12/13/2023 4:42 PM EDT [facility]. Confirmed pharmacy did not [...] LILLY * Telephone Encounter - Lary Barrett [facility] - 12/09/2023 2:52 PM EDTPending Prescriptions: Disp [...] date the medication was ordered: 08/26/23 Pharmacy: [facility] Is this request for [...] preferred pharmacy and medication before forwarding?yes Pharmacy: [facility] Pending Prescriptions: Disp Refills [...] Description 12/14/2023 11:00 AM EDT [address] [address] 12/31/2023 12:00 PM EDT Cardiac Studies Card[address] Studies, [address] [address] 01/04/2024 10:00 AM EDT PulmDiagnostic Pulmonary Function Lab, [facility] [address] [facility] [place] [address] [address], [address] [facility] [place] [address] 04/27/2024 10:45 AM EDT Office Visit Ophthalmology, [facility] [address] [facility] [place] [address] Jeremy Shaw, DO [address] [facility] [place] [address] Health Maintenance Due Date Last Done Comments Alpha-1 Antitrypsin 1969 Hepatitis C Screening 1969 Cologuard 1996 Colonoscopy 1996 Sigmoidoscopy 1996 Colorectal Cancer Screening 01/22/2012 Fecal Occult Blood Test 01/22/2012 01/22/20, 12/21/2008, 12/03/2007 DISCUSS TOBACCO CESSATION (REFER TO SMARTSET #3291) 12/12/2015 12/11/2014 (Discussed) Zoster Vaccines (3 of 3) 03/07/2019 01/10/2019, 02/21 DXA Scan 12/07/2020 12/07/2018, 0511/2014, 07/24/2009 CKD PHOS USE SMARTSET 57036 12/10/202211/22, 12/13/2020, 12/11/2014, Additional history exists COVID-19 [...] Additional history exists CKD HGB USE SMARTSET 01953 08/26/202408/26, 08/26/2023, 05/24/2023, Additional history exists Diabetic [...] D LEVEL ONCE IN A LIFETIME-USE SMARTSET# 77438 Completed 12/10/2021, 03/01/2019, 07/07/2017, Additional history exists [...] Documents on File Type Date Recorded Patient Copy Clerk Expl anation POL 08/03/2018 POLST Care Teams Afterschool Relationship Specialty Start Date End Date Franca Lilly MD PCP - General Internal Medicine 07/03/22 documented as of this encounter
--- OUTSIDE RECORDS SUMMARY | 2024-05-16 13:52 | External Medical Summary | Summary of Care ---
Author Name Unknown Organization [facility] Address [address] [place] [address] Phone [phone] Care Team Providers Care Piece Jobber Name Role Phone Franca Lilly MD Primary Care Provider [phone] Reason for Visit * Reason Onset Date Comments Medication Refill 12/09/2023 Encounter Details Date Type Department Care Team (Late st Contact Info) Description 12/09/2023 Refill [facility] [address] [place] [address] Franca Lilly MD [address] [place] [address] Thrush Allergies Active Allergy Reactions Criticality Noted Date Comments Morphine And Related 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 Quinolones Other (Please comment) 02/19/2003 Hives Moods- becomes nasty Adhesive Tape Rash 01/29/2014 documented as of this encounter (statuses as of 12/09/2023) Medications Medication Sig Dispensed Refills Start Date End Date Status NEBULIZERS MISCIndications:LATENT FINGERPRINT EXAMINER D, 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) portable nebulizer 1 Each 5 01/24/2014 Active Spacer/Aero-Holding Chambers DEVIIndications:LATENT FINGERPRINT EXAMINER D, severe (HCC) Use with QVar inhaler [...] 11/02/2022 Active Vitamin D (Ergocalciferol) 1.25 MG (61975 UT) Oral Capsule (Drisdol) TAKE 1 CAPSULE BY MOUTH ONE TIME PER WEEK Strength: 1.25 MG (95521 UT) 12 Capsule 1 02/19/2023 Active Additional [...] MORNING 90 Tablet 10/11/2023 10/10/19 Active Nystatin 269426 UNIT/GM External CreamIndications:Ca ndidal skin infection APPLY [...] as of this encounter (statuses as of 12/09/2023) Active Problems Problem Noted Date Diagnosed Date [...] rinse after steroid. Test performed by Loli SENIOR BUSINESS DEVELOPMENT ANALYST CPFT Hypertensive kidney disease, stage III 9 [...] as of this encounter (statuses as of 12/09/2023) Resolved Problems Problem Noted Date Diagnosed Date [...] as of this encounter (statuses as of 12/09/2023) Immunizations Name Administration Dates Next Due COVID-19 mRNA, LNP-s, No Pre serve, 2-Dose Series (Voice Assist) 05/27/2021,11/21/2020,10/31/2020 Pneumococcal Conjugate Vacc, 13 Valent (Prevnar) [...] LILLY * Telephone Encounter - Lary Barrett [facility] - 12/09/2023 2:52 PM EDTPending Prescriptions: Disp [...] date the medication was ordered: 08/26/23 Pharmacy: [facility] Is this request for a [...] Description 12/14/2023 11:00 AM EDT Imaging Radiology, [facility] [address] [facility] [place] [address] 12/31/2023 12:00 PM EDT Cardiac Studies Cardiac Studies, [place] [address] 01/04/2024 10:00 AM EDT PulmDiagnostic Pulmonary Function Lab, [facility] [address] [facility] [place] [address] [address], [address] [facility] [place] [address] 04/27/2024 10:45 AM EDT Office Visit Ophthalmology, [facility] [address] [facility] [place] [address] Jeremy Shaw, 21 [facility] [place] [address] Health Maintenance Due Date Last Done Comments Alpha-1 Antitrypsin 1969 Hepatitis C Screening 1969 Cologuard 1996 Colonoscopy 1996 Sigmoidoscopy 1996 Colorectal Cancer Screening 01/22/2012 Fecal Occult Blood Test 01/22/2012 01/22/20 11, 12/21/2008, 12/03/2007 DISCUSS TOBACCO CESSATION (REFER TO SMARTSET #3291) 12/12/2015 12/11/2014 (Discussed) Zoster Vaccines (3 of 3) 03/07/2019 01/10/2019, 02/21 DXA Scan 12/07/2020 12/07/2018, 11/2014, 07/24/2009 CKD PHOS USE SMARTSET 70781 12/10/202211/22, 12/13/2020, 12/11/2014, Additional history exists COVID-19 [...] Additional history exists CKD HGB USE SMARTSET 04696 08/26/202408/26, 08/26/2023, 05/24/2023, Additional history exists Diabetic [...] D LEVEL ONCE IN A LIFETIME-USE SMARTSET# 76508 Completed 12/10/2021, 03/01/2019, 07/07/2017, Additional history exists [...] Documents on File Type Date Recorded Patient Spray Cementer Expl anation POLST 08/03/2018 POLST Care Teams Piece Jobber Relationship Specialty Start Date End Date Franca Lilly MD PCP - General Internal Medicine 07/03/22 documented as of this encounter
--- OUTSIDE RECORDS SUMMARY | 2024-05-16 13:53 | External Medical Summary | Summary of Care ---
Author Name Unknown Organization [facility] Address [address] [place] [address] Phone [phone] Care Team Providers Care Mini Baccarat Dealer Name Role Phone Franca Lilly MD Primary Care Provider [phone] Reason for Visit * Reason Onset Date Comments Medication Question 11/30/2023 Encounter Details Date Type Department Care Team (Late st Contact Info) Description 11/30/2023 Telephone [facility] [address] [place] [address] Franca Lilly MD [address] [place] [address] Medication Question Allergies Active Allergy Reactions Criticality Noted Date Comments Morphine And Related 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 Quinolones Other (Please comment) 02/19/2003 Hives Moods- becomes nasty Adhesive Tape Rash 01/29/2014 documented as of this encounter (statuses as of 11/30/2023) Medications Medication Sig Dispensed Refills Start Date [...] 11/02/2022 Active Vitamin D (Ergocalciferol) 1.25 MG (81507 UT) Oral Capsule (Drisdol) TAKE 1 CAPSULE BY MOUTH ONE TIME PER WEEK Strength: 1.25 MG (08807 UT) 12 Capsule 1 02/19/2023 Active Additional [...] the morning. 180 Tablet 1 08/26/2023 Active Clotrimazole 10 MG Mouth/Throat Krunal (Mycelex Krunal)Indications:T hrush DISSOLVE 1 KRUNAL IN MOUTH 5 TIMES A DAY NEEDED FOR THRUSH Strength: 10 MG 60 Krunal 1 08/26/2023 Active oxygen IN GASIndications:COPD, severe [...] 90 Tablet 3 10/11/2023 5 Active Nystatin 734538 UNIT/GM External CreamIndications:Can didal skin infection APPLY TO AFFECTED AREA(S) TWICE A DAY FOR 2 WEEKS 60 g 1 11/26/2023 Active documented as of this encounter (statuses as of 11/30/2023) Active Problems Problem Noted Date Diagnosed Date [...] after steroid. Test performed by Loli SHIPPING SUPPORT CLERK CPFT Hypertensive kidney disease, stage III 9 [...] as of this encounter (statuses as of 11/30/2023) Resolved Problems Problem Noted Date Diagnosed Date [...] Rhinitis, nonallergic 12/24/20152016 Elevated IgE level 11/07/2015 11/15/201 7 Visit for eye and vision exam [...] as of this encounter (statuses as of 11/30/2023) Immunizations Name Administration Dates Next Due COVID-19 [...] encounter Miscellaneous Notes * Telephone Encounter - Leydi Wise LPN - 11/30/2023 1:59 PM EDT Called patient. Left message on answering machine to call office. * Telephone Encounter - Franca Lilly MD - 11/30/2023 12:42 PM EDT Pt has known extensive medical conditions with known neck back issue and known osteoarthritis and disc problems She can't take NSAIDs due to known CKD And she is on neurontin for pain I can order baclofen if she would like to try But if not getting better, she should see me or any other provider * Telephone Encounter - Wes Valencia PHARM Tech - 11/30/2023 10:30 AM EDT Pt called stating she went to hospital for pain in upper back on her left side. Was diagnosed with Tendonitis and was told to request medication for pain from PCP. Please prescribe medication for pt.She uses [facility] [place]. Any questions please contact pt at [phone]. Thank You, Wes Valencia [facility] Mixing Machine Feeder II Centralized Clinical Pharmacy Services (Formerly Telepharmacy) 11/30/2023, 10:33 AM documented in this encounter Plan of Treatment Upcoming Encounters Date Type Department Care Team (Late st Contact Info) Description 12/14/2023 11:00 AM EDT [facility] Rad[facility], [place] [id number] [facility] [address] 12/31/2023 12:00 PM EDT Cardiac Studies Card[address] Studies, [address] [address] 01/04/2024 10:00 AM EDT PulmDiagnostic Pulmonary Function Lab, [facility] [address] [facility] [place] [address] [place], [address] [facility] [place] [address] 04/27/2024 10:45 AM EDT Office Visit Ophthalmology, [facility] [address] [place] [address] Jeremy Shaw, DO [address] [place] [id number] Health Maintenance Due Date Last Done Comments Alpha-1 Antitrypsin 1969 Hepatitis C Screening 1969 Cologuard 1996 Colonoscopy 1996 Sigmoidoscopy 1996 Colorectal Cancer Screening 01/22/2012 Fecal Occult Blood Test 01/22/2012 01/22/20 11, 12/21/2008, 12/03/2007 DISCUSS TOBACCO CESSATION (REFER TO SMARTSET #3291) 12/12/2015 12/11/2014 (Discussed) Zoster Vaccines (3 of 3) 03/07/2019 01/10/2019, 02/21 DXA Scan 12/07/2020 12/07/2018, 11/2014, 07/24/2009 CKD PHOS USE SMARTSET 71295 12/10/202211/22, 12/13/2020, 12/11/2014, Additional history exists COVID-19 [...] Additional history exists CKD HGB USE SMARTSET 73303 08/26/202408/26, 08/26/2023, 05/24/2023, Additional history exists Diabetic Eye Exam 08/26/2024 08/26/2023, , 11/25/2017 O2 ASSESSMENT COMPLETED IN PAST YEAR FOR COPD 08/26/2024 08/26/2023 Lipid Panel 12/10/2026 12/10/2021, 11/22, 03/01/2019, Additional history exists DTaP,Tdap,and Td Vaccines (4 - Td or Tdap) 08/03/2028 08/03/2018, 08/03/2018, 05/16/2008 Pneumococcal Vaccine: 65+ Years Completed 07/07/2017, 12/02/2015, 08/04/2006, Additional history exists LUNG CANCER SCREENING - USE SMARTSET 17574 Completed 04/15/2020, 05/11/2006, 05/03/2003 VITAMIN D LEVEL ONCE IN A LIFETIME-USE SMARTSET# [id number] Completed 12/10/2021, 03/01/2019, 07/07/2017, Additional history exists [...] Documents on File Type Date Recorded Patient Electronic Transaction Implementer Expl anation POLST 08/03/2018 POLST Care Teams Mini Baccarat Dealer Relationship Specialty Start Date End Date Franca Lilly MD PCP - General Internal Medicine 07/03/22 documented as of this encounter
--- OUTSIDE RECORDS SUMMARY | 2024-05-16 13:53 | External Medical Summary | Summary of Care ---
Author Name Unknown Organization [facility] Address [address] [place] [address] Phone [phone] Care Team Providers Care Membership Manager Name Role Phone Franca Lilly MD Primary Care Provider [phone] Reason for Visit * Reason Onset Date Comments Medication Question 11/30/2023 Encounter Details Date Type Department Care Team (Late st Contact Info) Description 11/30/2023 Telephone [facility] [address] [place] [address] Franca Lilly MD [address] [place] [address] Medication Question Allergies Active Allergy [...] 11/02/2022 Active Vitamin D (Ergocalciferol) 1.25 MG (26914 UT) Oral Capsule (Drisdol) TAKE 1 CAPSULE BY MOUTH ONE TIME PER WEEK Strength: 1.25 MG (48045 UT) 12 Capsule 1 02/19/2023 Active Additional [...] 1 08/26/2023 Active Clotrimazole 10 MG Mouth/Throat Rkunal (Mycelex Krunal)Indications:T hrush DISSOLVE 1 KRUNAL IN [...] 90 Tablet 3 10/11/2023 5 Active Nystatin 241338 UNIT/GM External CreamIndications:Can didal skin infection APPLY [...] rinse after steroid. Test performed by Loli COSMETOLOGY PROFESSOR CPFT Hypertensive kidney disease, stage III 9 [...] mRNA, LNP-s, No Pre serve, 2-Dose Series ([facility]) 05/27/2021,11/21/2020,10/31/2020 Pneumococcal Conjugate Vacc, 13 Valent (Prevnar) [...] PCP. Please prescribe medication for pt.She uses [facility] [place]. Any questions please contact pt at [phone]. Thank You, Wes Valencia [facility] Jive Developer II Centralized Clinical Pharmacy Services (Formerly Telepharmacy) 11/30/2023, 10:33 AM documented in this encounter Plan of Treatment Upcoming Encounters Date Type Department Care Team (Late st Contact Info) Description 12/14/2023 11:00 AM EDT [address], [address] [address] 12/31/2023 12:00 PM EDT Cardiac Studies Cardiac Studies, [address] [place] [address] 01/04/2024 10:00 AM EDT PulmDiagnostic Pulmonary Function Lab, [facility] [address] [facility] [place] [address] [address], [address] [place] [address] 04/27/2024 10:45 AM EDT Office Visit Ophthalmology, [facility] [address] [place] [address] Jeremy Shaw, [facility] [place] [address] Health Maintenance Due Date Last Done Comments Alpha-1 Antitrypsin 1969 Hepatitis C Screening 1969 Cologuard 1996 Colonoscopy 1996 Sigmoidoscopy 1996 Colorectal Cancer Screening 01/22/2012 Fecal Occult Blood Test 01/22/2012 01/22/20 11, 12/21/2008, 12/03/2007 DISCUSS TOBACCO CESSATION (REFER TO SMARTSET #3291) 12/12/2015 12/11/2014 (Discussed) Zoster Vaccines (3 of 3) 03/07/2019 01/10/2019, 02/21 DXA Scan 12/07/2020 12/07/2018, 05/0 11/2014, 07/24/2009 CKD PHOS USE SMARTSET 63381 12/10/202211/22, 12/13/2020, 12/11/2014, Additional history exists COVID-19 [...] Additional history exists CKD HGB USE SMARTSET 19975 08/26/202408/26, 08/26/2023, 05/24/2023, Additional history exists Diabetic Eye Exam 08/26/2024 08/26/2023, , 11/25/2017 O2 ASSESSMENT COMPLETED IN PAST YEAR FOR COPD 08/26/2024 08/26/2023 Lipid Panel 12/10/2026 12/10/2021, 11/22, 03/01/2019, Additional history exists DTaP,Tdap,and Td Vaccines (4 - Td or Tdap) 08/03/2028 08/03/2018, 08/03/2018, 05/16/2008 Pneumococcal Vaccine: 65+ Years Completed 07/07/2017, 12/02/2015, 08/04/2006, Additional history exists LUNG CANCER SCREENING - USE SMARTSET 29140 Completed 04/15/2020, 05/11/2006, 05/03/2003 VITAMIN D LEVEL ONCE IN A LIFETIME-USE SMARTSET# [id number] Completed 12/10/2021, 03/01/2019, 07/07/2017, Additional history exists [...] Documents on File Type Date Recorded Patient Sort Worker Expl anation DAYA 08/03/2018 POLST Care Teams Membership Manager Relationship Specialty Start Date End Date Franca Lilly MD PCP - General Internal Medicine 07/03/22 documented as of this encounter
--- OUTSIDE RECORDS SUMMARY | 2024-05-16 13:53 | External Medical Summary | Summary of Care ---
Author Name Unknown Organization [facility] Address [address] [place] [address] Phone [phone] Care Team Providers Care Rn Orthopaedic Name Role Phone Franca Lilly MD Primary Care Provider [phone] Encounter Details Date Type Department Care Team (Late st Contact Info) Description 12/06/2023 Orders Only Pulmonary Medicine Zamzam Pan [address] [place] [address] Prieto Song MD [address] [place] [id number] Chronic respiratory failure with hypoxia (HCC)*; COPD, group D, by GOLD 2017 classification ([facility]) Allergies Active Allergy Reactions Criticality Noted Date Comments Morphine And Related 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 Quinolones Other (Please comment) 02/19/2003 Hives Moods- becomes nasty Adhesive Tape Rash 01/29/2014 documented as of this encounter (statuses as of 12/06/2023) Medications Medication Sig Dispensed Refills Start Date [...] 11/02/2022 Active Vitamin D (Ergocalciferol) 1.25 MG (48894 UT) Oral Capsule (Drisdol) TAKE 1 CAPSULE BY MOUTH ONE TIME PER WEEK Strength: 1.25 MG (44410 UT) 12 Capsule 1 02/19/2023 Active Additional [...] 90 Tablet 3 10/11/2023 5 Active Nystatin 491677 UNIT/GM External CreamIndications:Can didal skin infection APPLY TO AFFECTED AREA(S) TWICE A DAY FOR 2 WEEKS 60 g 1 11/26/2023 Active Hospital, Clinic, or Other Facility Administered Medication Ordered Dose Route Frequency Start Date End Date Status Albuterol Sulfate (Proventil) (2.5 MG/3ML) 0.083% inhalation solution 2.5 mgIndications:Chronic respiratory failure with hypoxia (HCC),COPD, group D, by GOLD 2017 classification ([facility]) 2.5 mg NEBULIZER PRN 12/06/2023 12/05/2024 Acti ve Albuterol Sulfate (Proventil) (5 MG/ML) 0.5% *conc* inhalation solution 2.5 mgIndications:Chronic respiratory failure with hypoxia (HCC),COPD, group D, by GOLD 2017 classification (HCC) 2.5 mg NEBULIZER PRN 12/06/2023 12/05/2024 Acti ve documented as of this encounter (statuses as of 12/06/2023) Active Problems Problem Noted Date Diagnosed Date [...] rinse after steroid. Test performed by Loli CLINICAL EDUCATION ASSISTANT CPFT Hypertensive kidney disease, stage III 9 [...] as of this encounter (statuses as of 12/06/2023) Resolved Problems Problem Noted Date Diagnosed Date [...] as of this encounter (statuses as of 12/06/2023) Immunizations Name Administration Dates Next Due COVID-19 [...] as of this encounter Plan of Treatment Upcoming Encounters Date Type Department Care Team (Late st Contact Info) Description 12/14/2023 11:00 AM EDT Imaging Radiology, [address], [place] [address] 12/31/2023 12:00 PM EDT Cardiac Studies [address] Studies, [address] [address] 01/04/2024 10:00 AM EDT PulmDiagnostic Pulmonary Function Lab, [facility] [address] [facility] [place] [address] [address], [address] [facility] [place] [address] 04/27/2024 10:45 AM EDT Office Visit Ophthalmology, [facility] [address] [facility] [place] [address] Jeremy Shaw, DO [address] [facility] [place] [address] Health Maintenance Due Date Last Done Comments Alpha-1 Antitrypsin 1969 Hepatitis C Screening 1969 Cologuard 1996 Colonoscopy 1996 Sigmoidoscopy 1996 Colorectal Cancer Screening 01/22/2012 Fecal Occult Blood Test 01/22/2012 01/22/20, 12/21/2008, 12/03/2007 DISCUSS TOBACCO CESSATION (REFER TO SMARTSET #3291) 12/12/2015 12/11/2014 (Discussed) Zoster Vaccines (3 of 3) 03/07/2019 01/10/2019, 02/21 DXA Scan 12/07/2020 12/07/2018, 050 11/2014, 07/24/2009 CKD PHOS USE SMARTSET 15899 12/10/202211/22, 12/13/2020, 12/11/2014, Additional history exists COVID-19 Vaccine (2022- season) 2023 05/27/2021, 11/21/2020, 10/31/2020 Albumin/Creatinine Ratio 06/11/2023 022, 07/07/2017, 12/11/2014, Additional history exists Mammogram 09/09/2023 09/09/2022, 08/23, 12/06/2018, Additional history exists HbA1c 11/23/2023 05/24/2023, 05/24, 12/10/2021, Additional history exists GFR 02/24/2024 08/26/2023, 09/2022, 06/11/2022, Additional history exists Diabetic Foot Exam 05/24/2024 05/24/2023, 0 12/10/2021, 09/14/2019, Additional history exists TSH 05/24/2024 05/24/2023, 05/24, 12/10/2021, Additional history exists CKD HGB USE SMARTSET 18516 08/26/202408/26, 08/26/2023, 05/24/2023, Additional history exists Diabetic [...] D LEVEL ONCE IN A LIFETIME-USE SMARTSET# [id number] Completed 12/10/2021, 03/01/2019, 07/07/2017, Additional history exists [...] of this encounter Visit Diagnoses Diagnosis Chronic respiratory failure with hypoxia (HCC)- Primary Chronic respiratory failure COPD, group D, by GOLD 2017 classification (HCC) documented in this encounter Advance Directives Documents on File Type Date Recorded Patient Center Customer Service Associate Expl anation POLST 08/03/2018 POLST Care Teams Rn Orthopaedic Relationship Specialty Start Date End Date Franca Lilly MD PCP - General Internal Medicine 07/03/22 documented as of this encounter
--- OUTSIDE RECORDS SUMMARY | 2024-05-16 13:53 | External Medical Summary | Summary of Care ---
Author Name Unknown Organization [facility] Address [address] [place] [address] Phone [phone] Care Team Providers Care Mainspring Winder And Oiler Name Role Phone Franca Lilly MD Primary Care Provider [phone] Reason for Visit * Reason Comments Medication Refill Encounter Details Date Type Department Care Team (Late st Contact Info) Description 11/26/2023 Refill [facility] [address] [place] [address] Franca Lilly MD [address] [place] [address] Candidal skin infection Allergies Active Allergy Reactions Criticality Noted Date Comments Morphine And Related 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 Quinolones Other (Please comment) 02/19/2003 Hives Moods- becomes nasty Adhesive Tape Rash 01/29/2014 documented as of this encounter (statuses as of 11/26/2023) Medications Medication Sig Dispensed Refills Start Date End Date Status NEBULIZERS MISCIndications:DRY TALC RACKER D, 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) portable nebulizer 1 Each 5 01/24/2014 Active Spacer/Aero-Holding Chambers DEVIIndications:DRY TALC RACKER D, severe (HCC) Use with QVar inhaler [...] 11/02/2022 Active Vitamin D (Ergocalciferol) 1.25 MG (07494 UT) Oral Capsule (Drisdol) TAKE 1 CAPSULE BY MOUTH ONE TIME PER WEEK Strength: 1.25 MG (30720 UT) 12 Capsule 1 02/19/2023 Active Additional [...] 60 Krunal 1 08/26/2023 Active oxygen IN GASIndications:COPD , [...] Active Benzonatate 100 MG Oral Capsule (Tessalon Perlyvan) Take 1 Capsule by mouth 3 times [...] Tablet 3 10/11/2023 10/10/19 25 Active Nystatin 090688 UNIT/GM External CreamIndications:Ca ndidal skin infection APPLY TO AFFECTED AREA(S) TWICE A DAY FOR 2 WEEKS 60 g 1 11/26/2023 Active Nystatin 456572 UNIT/GM External CreamIndications:Ca ndidal skin infection APPLY TO AFFECTED AREA(S) TWICE A DAY FOR 2 WEEKS 60 g 1 10/01/2023 11/26/19 24 Discontinu ed(Refill) documented as of this encounter (statuses as of 11/26/2023) Active Problems Problem Noted Date Diagnosed Date [...] rinse after steroid. Test performed by Loli DUB ROOM ENGINEER CPFT Hypertensive kidney disease, stage III [...] as of this encounter (statuses as of 11/26/2023) Resolved Problems Problem Noted Date Diagnosed Date [...] as of this encounter (statuses as of 11/26/2023) Immunizations Name Administration Dates Next Due COVID-19 mRNA, LNP-s, No Pre serve, 2-Dose Series ([facility]) 05/27/2021,11/21/2020,10/31/2020 Pneumococcal Conjugate Vacc, 13 Valent (Prevnar) [...] Telephone Encounter - Franca Lilly MD - 11/26/2023 12:08 PM EDTSigned Prescriptions: Disp Refills Nystatin 844589 UNIT/GM External Cream 60 g 1 Sig: APPLY TO AFFECTED AREA(S) TWICE A DAY FOR 2 WEEKS Authorizing Provider: FRANCA LILLY * Telephone Encounter - Ksenia Denney LPN - 11/26/2023 11:38 AM EDTPending Prescriptions: Disp Refills Nystatin 393786 UNIT/GM External Cream 60 g 1 Sig: APPLY TO AFFECTED AREA(S) TWICE A DAY FOR 2 WEEKS * Telephone Encounter - Dena Olson - 11/26/2023 7:45 AM EDTPending Prescriptions: Disp Refills Nystatin 060869 UNIT/GM External Cream 60 g 1 Sig: APPLY TO AFFECTED AREA(S) TWICE A DAY FOR 2 WEEKS documented in this encounter Plan of Treatment Upcoming Encounters Date Type Department Care Team (Late st Contact Info) Description 12/14/2023 11:00 AM EDT Imaging Radiology, [address] [place] [address] 12/31/2023 12:00 PM EDT Cardiac Studies Cardiac Studies, [address] [place] [id number] 01/04/2024 10:00 AM EDT PulmDiagnostic Pulmonary Function Lab, [facility] [address] [place] [address] [address], [address] [facility] [place] [address] 04/27/2024 10:45 AM EDT Office Visit [facility]hthalmology, [facility] [place] [address] Jeremy Shaw, DO [address] [facility] [place] [address] Health Maintenance Due Date Last Done Comments Alpha-1 Antitrypsin 1969 Hepatitis C Screening 1969 Cologuard 1996 Colonoscopy 1996 Sigmoidoscopy 1996 Colorectal Cancer Screening 01/22/2012 Fecal Occult Blood Test 01/22/2012 01/22/20 11, 12/21/2008, 12/03/2007 DISCUSS TOBACCO CESSATION (REFER TO SMARTSET #3291) 12/12/2015 12/11/2014 (Discussed) Zoster Vaccines (3 of 3) 03/07/2019 01/10/2019, 02/21 Depression Screening 09/14/2020 09/14/2019, 12/11/2014 (Discussed) DXA Scan 12/07/2020 12/07/2018, 0511/2014, 07/24/2009 CKD PHOS USE SMARTSET 40599 12/10/202211/22, 12/13/2020, 12/11/2014, Additional history exists COVID-19 [...] Additional history exists CKD HGB USE SMARTSET 44863 08/26/202408/26, 08/26/2023, 05/24/2023, Additional history exists Diabetic Eye Exam 08/26/2024 08/26/2023, , 11/25/2017 O2 ASSESSMENT COMPLETED IN PAST YEAR FOR COPD 08/26/2024 08/26/2023 Lipid Panel 12/10/2026 12/10/2021, 11/22, 03/01/2019, Additional history exists DTaP,Tdap,and Td Vaccines (4 - Td or Tdap) 08/03/2028 08/03/2018, 08/03/2018, 05/16/2008 Pneumococcal Vaccine: 65+ Years Completed 07/07/2017, 12/02/2015, 08/04/2006, Additional history exists LUNG CANCER SCREENING - USE SMARTSET 26999 Completed 04/15/2020, 05/11/2006, 05/03/2003 VITAMIN D LEVEL ONCE IN A LIFETIME-USE SMARTSET# 63640 Completed 12/10/2021, 03/01/2019, 07/07/2017, Additional history exists [...] Documents on File Type Date Recorded Patient Reports Analyst Expl anation POLST 08/03/2018 POL Care Teams Mainspring Winder And Oiler Relationship Specialty Start Date End Date Franca Lilly MD PCP - General Internal Medicine 07/03/22 documented as of this encounter
--- OUTSIDE RECORDS SUMMARY | 2024-05-16 13:54 | External Medical Summary | Summary of Care ---
Author Name Unknown Organization [facility] Address [address] [place] [address] Phone [phone] Care Team Providers Care Oracle Fusion Consultant Name Role Phone Franca Lilly MD Primary Care Provider [phone] Encounter Details Date Type Department Care Team (Late st Contact Info) Description 11/22/2023 Orders Only Pulmonary Medicine, [facility] [address] [facility] [place] [address] Prieto Song MD [address] [facility] [place] [id number] Chronic respiratory failure with hypoxia (HCC)*; COPD, group D, by GOLD 2017 classification ([facility]) Allergies Active Allergy Reactions Criticality Noted Date Comments Morphine And Related 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 Quinolones Other (Please comment) 02/19/2003 Hives Moods- becomes nasty Adhesive Tape Rash 01/29/2014 documented as of this encounter (statuses as of 11/22/2023) Medications Medication Sig Dispensed Refills Start Date [...] 11/02/2022 Active Vitamin D (Ergocalciferol) 1.25 MG (38403 UT) Oral Capsule (Drisdol) TAKE 1 CAPSULE BY MOUTH ONE TIME PER WEEK Strength: 1.25 MG (49919 UT) 12 Capsule 1 02/19/2023 Active Additional [...] by mouth every other day 0 Active Nystatin 268531 UNIT/GM External CreamIndications:Can didal skin infection APPLY TO AFFECTED AREA(S) TWICE A DAY FOR 2 WEEKS 60 g 1 10/01/2023 Active Pantoprazole Sodium 40 MG Oral Tablet Delayed Release (Protonix) TAKE ONE TABLET BY MOUTH EVERY MORNING 90 Tablet 3 10/04/2023 Active Aspirin 81 MG Oral Tablet Delayed Release (Aspirin Low Dose)Indications:HTN , goal below 140/90 TAKE ONE TABLET BY MOUTH EVERY MORNING 90 Tablet 3 10/11/2023 5 Active documented as of this encounter (statuses as of 11/22/2023) Active Problems Problem Noted Date Diagnosed Date [...] rinse after steroid. Test performed by Loli PM HEAD COOK CPFT Hypertensive kidney disease, stage III 9 [...] as of this encounter (statuses as of 11/22/2023) Resolved Problems Problem Noted Date Diagnosed Date [...] as of this encounter (statuses as of 11/22/2023) Immunizations Name Administration Dates Next Due COVID-19 mRNA, LNP-s, No Pre serve, 2-Dose Series ([employer]) 05/27/2021,11/21/2020,10/31/2020 Pneumococcal Conjugate Vacc, 13 Valent (Prevnar) [...] Description 12/14/2023 11:00 AM EDT Imaging Radiology, [address] [place] [address] 12/31/2023 12:00 PM EDT Cardiac Studies Cardiac Studies, [place] [address] 01/04/2024 10:00 AM EDT PulmDiagnostic Pulmonary Function Lab, [facility] [address] [facility] [place] [address] [address], [address] [facility] [place] [address] 04/27/2024 10:45 AM EDT Office Visit Ophthalmology, [facility] [address] [facility] [place] [address] Jeremy Shaw, DO [facility] [place] [address] Scheduled Orders Name Type Priority Associated Diagnoses Orde r Schedule DIFFUSION CAPACITY (DLCO) Procedures Routine Chronic respiratory failure with hypoxia (HCC) COPD, group D, by GOLD 2017 classification ([facility]) Expected: 11/29/2023, Expires: 12/21/2024 PULMONARY STRESS TESTING Procedures Routine Chronic respiratory failure with hypoxia (HCC) COPD, group D, by GOLD 2017 classification (HCC) Expected: 11/23/2023, Expires: 12/21/2024 RESPIRATORY MUSCLE PRESSURES (BUGLE PRESSURES) Procedures Routine Chronic respiratory failure with hypoxia (HCC) COPD, group D, by GOLD 2017 classification ([facility]) Ordered: 11/22/2023 LUNG VOLUMES (PLETHYSMOGRAPHY) Procedures Routine Chronic respiratory failure with hypoxia (HCC) COPD, group D, by GOLD 2017 classification ([facility]) Expected: 11/29/2023, Expires: 12/21/2024 SPIROMETRY B/A BRONCHODILATOR Procedures Routine Chronic respiratory failure with hypoxia (HCC) COPD, group D, by GOLD 2017 classification ([facility]) Expected: 11/29/2023, Expires: 12/21/2024 Health Maintenance Due Date Last Done Comments [...] 12/07/2018, 0511/2014, 07/24/2009 CKD PHOS USE SMARTSET 65017 12/10/202211/22, 12/13/2020, 12/11/2014, Additional history exists COVID-19 [...] Additional history exists CKD HGB USE SMARTSET 94135 08/26/202408/26, 08/26/2023, 05/24/2023, Additional history exists Diabetic Eye Exam 08/26/2024 08/26/2023, , 11/25/2017 O2 ASSESSMENT COMPLETED IN PAST YEAR FOR COPD 08/26/2024 08/26/2023 Lipid Panel 12/10/2026 12/10/2021, 11/22, 03/01/2019, Additional history exists DTaP,Tdap,and Td Vaccines (4 - Td or Tdap) 08/03/2028 08/03/2018, 08/03/2018, 05/16/2008 Pneumococcal Vaccine: 65+ Years Completed 07/07/2017, 12/02/2015, 08/04/2006, Additional history exists LUNG CANCER SCREENING - USE SMARTSET 17028 Completed 04/15/2020, 05/11/2006, 05/03/2003 VITAMIN D LEVEL ONCE IN A LIFETIME-USE SMARTSET# [id number] Completed 12/10/2021, 03/01/2019, 07/07/2017, Additional history exists [...] Documents on File Type Date Recorded Patient Loan Review Manager Expl anation DAYA 08/03/2018 POL Care Teams Oracle Fusion Consultant Relationship Specialty Start Date End Date Franca Lilly MD PCP - General Internal Medicine 07/03/22 documented as of this encounter
--- OUTSIDE RECORDS SUMMARY | 2024-05-16 13:54 | External Medical Summary | Summary of Care ---
Author Name Unknown Organization [facility] Address [address] [place] [address] Phone [phone] Care Team Providers Care Photolettering Machine Operator Name Role Phone Franca Lilly MD Primary Care Provider [phone] Encounter Details Date Type Department Care Team (Latest Contact Info) Description 11/25/2023 Medication Management [facility] [address] [place] [address] Malika Bennett, [facility] [address] [place] [address] Referred for medication therapy management* Allergies Active Allergy Reactions Criticality Noted Date Comments Morphine And Related 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 Quinolones Other (Please comment) 02/19/2003 Hives Moods- becomes nasty Adhesive Tape Rash 01/29/2014 documented as of this encounter (statuses as of 11/25/2023) Medications Medication Sig Dispensed Refills Start Date [...] 11/02/2022 Active Vitamin D (Ergocalciferol) 1.25 MG (18729 UT) Oral Capsule (Drisdol) TAKE 1 CAPSULE BY MOUTH ONE TIME PER WEEK Strength: 1.25 MG (68578 UT) 12 Capsule 1 02/19/2023 Active Additional [...] NEEDED FOR THRUSH Strength: 10 MG 60 Krunla 1 08/26/2023 Active oxygen IN GASIndications:COPD, severe [...] mouth every other day 0 Active Nystatin 325962 UNIT/GM External CreamIndications:Can didal skin infection APPLY [...] as of this encounter (statuses as of 11/25/2023) Active Problems Problem Noted Date Diagnosed Date [...] rinse after steroid. Test performed by Loli LUMBER STRAIGHTENER CPFT Hypertensive kidney disease, stage III 9 [...] as of this encounter (statuses as of 11/25/2023) Resolved Problems Problem Noted Date Diagnosed Date [...] as of this encounter (statuses as of 11/25/2023) Immunizations Name Administration Dates Next Due COVID-19 [...] on file documented as of this encounter Progress Notes * Lela Kay, shredding machine knife changer - 11/25/2023 9:57 AM EDT Danni Patricio is a 73 year old female. TMR Interventions Incomplete Medication Therapy Recommendations No medication therapy recommendations to display Completed Medication Therapy Recommendations Referred for medication therapy management Current Medication: Qapsjflymgy-Vdqvxcwkh-Uxxhxb 200-62.5-25 MCG/ACT Aerosol Powder Breath Activated (Trelegy Ellipta) Rationale: Patient Education Recommendation: Provide Education Note: TMR medication assessment for maintenance inhaler technique Assessment & Plan Indication, effectiveness, safety and convenience of her medications were reviewed today. The patient's medical conditions were assessed, evaluated, and deemed meeting goals of drug therapy, with thefollowing exceptions. Lela Kay, shredding machine knife changer 11/25/2023, 9:57 AM documented in this encounter Plan of Treatment Upcoming Encounters Date Type Department Care Team (Late st Contact Info) Description 12/14/2023 11:00 AM EDT [address] [address] 12/31/2023 12:00 PM EDT Cardiac Studies [address] Studies, [address] [address] 01/04/2024 10:00 AM EDT PulmDiagnostic Pulmonary Function Lab, [facility] [address] [facility] [place] [address] [address], [address] [facility] [place] [address] 04/27/2024 10:45 AM EDT Office Visit Ophthalmology, [facility] [address] [facility] [place] [address] Jeremy Shaw, DO [address] [facility] [place] [address] Health Maintenance Due Date Last Done Comments [...] 12/07/2018, 0511/2014, 07/24/2009 CKD PHOS USE SMARTSET 55002 12/10/202211/22, 12/13/2020, 12/11/2014, Additional history exists COVID-19 [...] Additional history exists CKD HGB USE SMARTSET 29010 08/26/202408/26, 08/26/2023, 05/24/2023, Additional history exists Diabetic Eye Exam 08/26/2024 08/26/2023, , 11/25/2017 O2 ASSESSMENT COMPLETED IN PAST YEAR FOR COPD 08/26/2024 08/26/2023 Lipid Panel 12/10/2026 12/10/2021, 11/22, 03/01/2019, Additional history exists DTaP,Tdap,and Td Vaccines (4 - Td or Tdap) 08/03/2028 08/03/2018, 08/03/2018, 05/16/2008 Pneumococcal Vaccine: 65+ Years Completed 07/07/2017, 12/02/2015, 08/04/2006, Additional history exists LUNG CANCER SCREENING - USE SMARTSET 10342 Completed 04/15/2020, 05/11/2006, 05/03/2003 VITAMIN D LEVEL ONCE IN A LIFETIME-USE SMARTSET# [id number] Completed 12/10/2021, 03/01/2019, 07/07/2017, Additional history exists [...] as of this encounter Visit Diagnoses Diagnosis Referred for medication therapy management- Primary Encounter for long-term (current) use of other medications documented in this encounter Advance Directives Documents on File Type Date Recorded Patient Child Care Group Leader Expl anation POL 08/03/2018 POLST Care Teams Photolettering Machine Operator Relationship Specialty Start Date End Date Franca Lilly MD PCP - General Internal Medicine 07/03/22 documented as of this encounter
--- OUTSIDE RECORDS SUMMARY | 2024-05-16 13:54 | External Medical Summary | Summary of Care ---
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 Quinolones Other (Please comment) 02/19/2003 Hives Moods- becomes nasty Adhesive Tape Rash 01/29/2014 documented as of this encounter (statuses as of 11/23/2023) Medications Medication Sig Dispensed Refills Start Date [...] 11/02/2022 Active Vitamin D (Ergocalciferol) 1.25 MG (08782 UT) Oral Capsule (Drisdol) TAKE 1 CAPSULE BY MOUTH ONE TIME PER WEEK Strength: 1.25 MG (61978 UT) 12 Capsule 1 02/19/2023 Active Additional [...] mouth every other day 0 Active Nystatin 590240 UNIT/GM External CreamIndications:Can didal skin infection APPLY [...] as of this encounter (statuses as of 11/23/2023) Active Problems Problem Noted Date Diagnosed Date [...] rinse after steroid. Test performed by Loli PRICING/SIGNAGE TEAM MEMBER CPFT Hypertensive kidney disease, stage III 9 [...] as of this encounter (statuses as of 11/23/2023) Resolved Problems Problem Noted Date Diagnosed Date [...] as of this encounter (statuses as of 11/23/2023) Immunizations Name Administration Dates Next Due COVID-19 mRNA, LNP-s, No Pre serve, 2-Dose Series ([employer]) 05/27/2021,11/21/2020,10/31/2020 Pneumococcal Conjugate Vacc, 13 Valent (Prevnar) [...] Description 12/14/2023 11:00 AM EDT Imaging Radiology, [address] [place] [address] 12/31/2023 12:00 PM EDT Cardiac Studies Cardiac Studies, [address] [place] [address] 01/04/2024 10:00 AM EDT PulmDiagnostic Pulmonary Function Lab, [facility] 132 [facility] [place] [address] [address], [address] [facility] [place] [address] 04/27/2024 10:45 AM EDT Office Visit Ophthalmology, [facility] [address] [place] [address] Jeremy Shaw, DO [address] [place] [address] Health Maintenance Due Date Last Done Comments Alpha-1 Antitrypsin 1969 Hepatitis C Screening 1969 Cologuard 1996 Colonoscopy 1996 Sigmoidoscopy 1996 Colorectal Cancer Screening 01/22/2012 Fecal Occult Blood Test 01/22/2012 01/22/20, 12/21/2008, 12/03/2007 DISCUSS TOBACCO CESSATION (REFER TO SMARTSET #3291) 12/12/2015 12/11/2014 (Discussed) Zoster Vaccines (3 of 3) 03/07/2019 01/10/2019, 02/21 Depression Screening 09/14/2020 09/14/2019, 12/11/2014 (Discussed) DXA Scan 12/07/2020 12/07/2018, 11/2014, 07/24/2009 CKD PHOS USE SMARTSET 37550 12/10/202211/22, 12/13/2020, 12/11/2014, Additional history exists COVID-19 [...] Additional history exists CKD HGB USE SMARTSET 71246 08/26/202408/26, 08/26/2023, 05/24/2023, Additional history exists Diabetic Eye Exam 08/26/2024 08/26/2023, , 11/25/2017 O2 ASSESSMENT COMPLETED IN PAST YEAR FOR COPD 08/26/2024 08/26/2023 Lipid Panel 12/10/2026 12/10/2021, 11/22, 03/01/2019, Additional history exists DTaP,Tdap,and Td Vaccines (4 - Td or Tdap) 08/03/2028 08/03/2018, 08/03/2018, 05/16/2008 Pneumococcal Vaccine: 65+ Years Completed 07/07/2017, 12/02/2015, 08/04/2006, Additional history exists LUNG CANCER SCREENING - USE SMARTSET 82518 Completed 04/15/2020, 05/11/2006, 05/03/2003 VITAMIN D LEVEL ONCE IN A LIFETIME-USE SMARTSET# 49824 Completed 12/10/2021, 03/01/2019, 07/07/2017, Additional history exists [...] Documents on File Type Date Recorded Patient Tearoom Host/Hostess Expl anation POLST 08/03/2018 POLST Care Teams Flooring Salesperson Relationship Specialty Start Date End Date Franca Lilly MD PCP - General Internal Medicine 07/03/22 documented as of this encounter
--- NOTE | 2024-05-16 14:16 | Emergency Department Note ---
Impression & Plan Ambulatory dysfunction, COPD (chronic obstructive pulmonary disease), Sprain of left foot, Fall, Acute pain of right knee, Right leg weakness ED Provider Note NAME: DEJA LACY AGE: 73 SEX: Female INFORMANT: Patient ED PROVIDER(S): Charles Omalley MD CHIEF COMPLAINT: Leg pain PLAN: Disposition: Admitted Outpatient prescription management: none Referral: None MEDICAL DECISION MAKING: Patient presented because of leg pain. On her history she seemed to note that she had leg weakness before the fall. There was some coolness to the right leg appreciated as well. Dopplers were done and did confirm a pulse. Patient was out of the window for consideration of thrombolytics. Patient had negative CT and CT angiography of the head and neck. Patient did have a slight leukocytosis. No evidence of pneumonia seen on chest x-ray. Given the cool right leg there was concerns about vascular pathology. Patient did not have any appreciable weakness on my examination. I did consult with [facility] and Dr. Zaargoza agreed. Patient was recommended for metabolic workup. Ultrasound imaging did not reveal any evidence of arterial occlusion. Patient was treated with IV Tylenol. She was also given an oral dose of aspirin. Patient cannot ambulate due to the left foot sprain. X-ray imaging was negative. Right knee x-ray was negative as well for acute fracture. Due to the issues and inability to safely ambulate [facility] Patient was evaluated in the ER and admitted for further management. Care/management discussed with: onsite case manager, telestroke Level of care consideration(s): After review of the information above and other included data, I feel the patient Karz escalation of care to admission Triage Nursing notes: reviewed and agree them. Vital Signs: reviewed and remarkable for no significant abnormalities Additional History obtained from: none Chronic Medical/Social Conditions affecting care: COPD Prior/ Outside/ External records reviewed: none Differential Diagnosis: CVA, TIA, Infection, dehydration, metabolic abnormality, hypo/hyperglycemia, electrolyte disturbance, anemia, hypoxia, cardiac sources, intracerebral event, toxicologic, neurologic, as well as other pathologies. Diagnostics, independently interpreted by me: ECG: Twelve-lead ECG reveals a normal sinus rhythm at 83 bpm. Left axis deviation. Cardiac Monitoring: Cardiac monitoring ordered by me: The patient was placed on continuous cardiac monitoring and observed. It revealed a normal sinus rhythm at 62 beats per minute without ectopy or evidence of dysrhythmia. Medical decision rules: none Imaging studies: X-ray ridging of the left foot is negative for fracture or dislocation. X-ray imaging of the chest reveals no evidence of pneumonia. No pneumothorax. X-ray imaging of the right knee is negative for fracture or dislocation. Head CT: A noncontrast CT scan of the head was performed and was negative for tumor, fracture, intracranial hemorrhage, or other acute pathology. I refer you to the EMR for further details. HPI: 73 year old Female arrives for evaluation of leg pain. This started about 0400 hrs. Patient states that she had tripped on a dog 2 days ago and scratched her left sanchez. She was able to ambulate that time. She notes that she had some soreness in the right knee but was doing okay yesterday. Today when she woke up at 0400 hrs she felt like her leg was not working right. She attempted to ambulate and her leg gave out. She had pain in the right knee and noted that when she fell she had breast carson to the right elbow. No bony deformity or limited range of motion of the right elbow. Patient stated that she could not get up and walk well because she developed pain and swelling in the left foot as well this morning. The patient also notes the following associated symptoms, runny nose. The patient has taken no medication for relieving factors. Current pain is rated as 3/10. Pain is worse with movement or attempted ambulation. Pt denies LOC, headache, fevers, chills, diaphoresis, visual changes, neck pain, chest pain, breathing difficulties, nausea, vomiting, abdominal pain, back pain, melena, hematochezia, urinary symptoms, numbness, rash, or other complaints. PAST MEDICAL HISTORY: See Below, COPD PAST SURGICAL HISTORY: See Below, SOCIAL HISTORY: See Below, smoker HOME MEDICATIONS: See Below ALLERGIES: See Below VITALS: See Below PHYSICAL EXAMINATION: GENERAL: Awake, alert, uncomfortable-appearing, in no distress HENT: Normocephalic, atraumatic. Oropharynx unremarkable. EYES: Normal conjunctiva. Sclera non-icteric. NECK: Inspection normal. Non-tender. Supple. No nuchal rigidity. FROM. No masses. RESPIRATORY: Breath sounds bilaterally. No wheezes. No rales. Normal respiratory effort. CARDIAC: Normal rate. Normal rhythm. No murmurs. No rubs. Extremities warm and well perfused. Pulses equal. No JVD. GI: Soft, non-distended. No tenderness to palpation. No rebound or guarding. No masses. RECTAL: Deferred. MUSCULOSKELETAL: Chest examination reveals no tenderness. The back is symmetrical on inspection without obvious abnormality. There is no CVA tenderness to palpation. No joint edema. There is an abrasion and contusion about the right elbow with no significant limited range of motion or bony deformity/tenderness. Examination of the left lower extremity is unremarkable except for lateral swelling and tenderness to palpation of the foot and healing abrasions to the left sacnhez. No signs of cellulitis of the sanchez. Examination of the right lower extremity reveals some tenderness around the right knee without significant effusion, erythema or warmth. Normal quadriceps function. Remainder of the right lower extremity is atraumatic and nontender. LOWER EXTREMITIES: Calves are equal size bilaterally and non-tender. No edema. No discoloration. Abrasion to the left sanchez. NEURO: Normal sensorium. No sensory or motor deficits noted. Cranial nerves II through XII intact. No drift. SKIN: No rash or jaundice noted. PROCEDURES: none CRITICAL CARE: none OBSERVATION NOTE: none Past Med/Surg History Problem List (Updated 05/16/24 @ 14:16 by Charles Omalley MD) Right leg weakness (Acute) Acute pain of right knee (Acute) Fall (Acute) Sprain of left foot (Acute) Ambulatory dysfunction (Acute) Syncope and collapse COPD exacerbation Hypoxic (Acute) COPD (chronic obstructive pulmonary disease) (Acute) Dehydration Syncope (Acute) Acute hypotension (Acute) Laceration (Acute) Sepsis (Acute) COPD with acute exacerbation (Acute) Acute respiratory failure (Acute) COPD (chronic obstructive pulmonary disease) (Chronic) Migraine (Chronic) Anxiety (Chronic) Depression (Chronic) H/O tubal ligation (Chronic) Tracheostomy obstruction (Acute) Medical History (Updated 05/16/24 @ 14:16 by Charles Omalley MD) COPD (chronic obstructive pulmonary disease) Diabetes Social History Smoking Status: Former smoker Tobacco Type: Cigarettes Second Hand Exposure: No; Do You Dip or Chew Tobacco: No; Hx Alcohol Use: No Hx Substance Use: No Preferred Language: Zambian Communication Ability: Effective Litigation Legal Assistant Required: No Beliefs That Will Affect Care: None Current Living Situation: Alone Feels Safe at Home: Yes Assistive Devices: None Allergies Allergies Allergy/AdvReac Type Severity Reaction Status Date / Time adhesive Allergy Intermediate RASH Verified 01/27/22 18:41 Quinolones Allergy Intermediate LEVAQUIN Verified 01/27/22 18:41 codeine AdvReac Severe "BECAME Verified 01/27/22 18:41 ADDICTED TO MED" PREFERS NOT TO TAKE IF POSSIBLE. morphine AdvReac Severe ADDICTION-PREFERS Verified 01/27/22 18:41 NOT TO TAKE IF POSSIBLE. linagliptin AdvReac Mild hypoglycemi Verified 01/27/22 18:41 a Home Meds Home Medications Medication Instructions Recorded Confirmed atenolol 25 mg tablet 25 mg PO QAM 10/09/18 05/16/24 azelastine 137 mcg (0.1 %) nasal 2 spray intranasal BID 10/09/18 05/16/24 spray calcium carbonate 500 mg PO 5XD PRN Gi Upset 10/09/18 05/16/24 cholecalciferol (vitamin D3) 1,250 50,000 unit PO WK 10/09/18 05/16/24 mcg (50,000 unit) tablet clotrimazole 10 mg tyrell 10 mg mucous membrane 5XD PRN 10/09/18 05/16/24 THRUSH furosemide 20 mg tablet 20 mg PO DAILY 10/09/18 05/16/24 gabapentin 300 mg capsule 300 mg PO USEASDIRECTD 10/09/18 05/16/24 ipratropium bromide 0.02 % 2.5 ml continuous nebulization Q4H 10/09/18 05/16/24 solution for inhalation PRN Shortness Of Breath Or Wheezing levalbuterol HCl 1.25 mg/3 mL 1.25 mg inhalation QID PRN 10/09/18 05/16/24 solution for nebulization Shortness Of Breath Or Wheezing levocetirizine 5 mg tablet 5 mg PO PM 10/09/18 05/16/24 levothyroxine 75 mcg tablet 75 mcg PO QAM 10/09/18 05/16/24 lisinopril 10 mg tablet 10 mg PO DAILY 10/09/18 05/16/24 montelukast 10 mg tablet 10 mg PO HS 10/09/18 05/16/24 nitroglycerin 0.4 mg sublingual 0.4 mg sublingual UD PRN Chest Pain 10/09/18 05/16/24 tablet (Nitrostat) pantoprazole 40 mg tablet,delayed 40 mg PO QAM 10/09/18 05/16/24 release paroxetine HCl 40 mg tablet 40 mg PO QAM 10/09/18 05/16/24 potassium chloride 10 mEq 10 meq PO BIDM 10/09/18 05/16/24 tablet,extended release(part/cryst) ropinirole 0.25 mg tablet 0.25 mg PO HS 10/09/18 05/16/24 aspirin 81 mg capsule 81 mg PO QAM 01/27/22 05/16/24 benzonatate 100 mg capsule 100 mg PO BID PRN Cough 01/27/22 05/16/24 guaifenesin 600 mg tablet, 600 mg PO BID PRN Cough 01/27/22 05/16/24 extended release 12 hr (Mucinex) albuterol sulfate 90 mcg/actuation 2 puff inhalation QID PRN 05/16/24 05/16/24 aerosol inhaler SOB/Wheezing alendronate 70 mg tablet 70 mg PO QAM 05/16/24 05/16/24 atorvastatin 40 mg tablet 40 mg PO HS 05/16/24 05/16/24 fluticasone fur. 200 mcg-umeclid 1 inh inhalation DAILY 05/16/24 05/16/24 62.5 mcg-vilant 25 mcg inhalat.powder (Trelegy Ellipta) lidocaine 5 % topical patch 1 patch topical DAILY PRN Pain 05/16/24 05/16/24 (Lidoderm) linagliptin 5 mg tablet (Tradjenta) 5 mg PO QAM 05/16/24 05/16/24 Results & Data (ED) Vital Signs Vital Signs - 24 hr 05/16/24 08:22 05/16/24 09:09 05/16/24 09:37 Temperature 36.6 C Temperature Source Oral Pulse Rate 92 H 81 Pulse Rate from SpO2 Sensor Respiratory Rate 20 Respiratory Effort / Characteristics Non-Labored Spontaneous Respiratory Depth Normal Blood Pressure 122/74 116/71 Blood Pressure Mean 90 90 Pulse Oximetry 94 Oxygen Delivery Method Room Air Sepsis Recent Fever Within 48 Hours No Sepsis New/Unexplained Change in Mental Status N/A Sepsis Action Taken by Nursing No Action Required 05/16/24 09:37 05/16/24 09:39 05/16/24 09:57 Temperature Temperature Source Pulse Rate 79 74 Pulse Rate from SpO2 Sensor 79 74 Respiratory Rate 24 24 Respiratory Effort / Characteristics Respiratory Depth Blood Pressure 116/71 Blood Pressure Mean 90 Pulse Oximetry 93 94 Oxygen Delivery Method Sepsis Recent Fever Within 48 Hours Sepsis New/Unexplained Change in Mental Status Sepsis Action Taken by Nursing 05/16/24 10:00 05/16/24 10:06 05/16/24 11:00 Temperature Temperature Source Pulse Rate 74 Pulse Rate from SpO2 Sensor 74 Respiratory Rate 22 Respiratory Effort / Characteristics Respiratory Depth Blood Pressure 110/61 112/64 Blood Pressure Mean 84 76 Pulse Oximetry 94 Oxygen Delivery Method Sepsis Recent Fever Within 48 Hours Sepsis New/Unexplained Change in Mental Status Sepsis Action Taken by Nursing 05/16/24 11:00 05/16/24 11:39 05/16/24 11:57 Temperature Temperature Source Pulse Rate 67 68 Pulse Rate from SpO2 Sensor 68 68 Respiratory Rate 25 H 19 Respiratory Effort / Characteristics Respiratory Depth Blood Pressure 112/64 Blood Pressure Mean 76 Pulse Oximetry 92 94 Oxygen Delivery Method Sepsis Recent Fever Within 48 Hours Sepsis New/Unexplained Change in Mental Status Sepsis Action Taken by Nursing 05/16/24 12:00 05/16/24 13:08 Temperature Temperature Source Pulse Rate 62 Pulse Rate from SpO2 Sensor Respiratory Rate Respiratory Effort / Characteristics Respiratory Depth Blood Pressure 99/63 L Blood Pressure Mean 66 Pulse Oximetry Oxygen Delivery Method Sepsis Recent Fever Within 48 Hours Sepsis New/Unexplained Change in Mental Status Sepsis Action Taken by Nursing Laboratory Data 05/16/24 08:35 05/16/24 08:35 Lab Results 05/16/24 05/16/24 05/16/24 Range/Units 08:35 09:03 09:17 WBC 13.85 H (4.8-10.8) K/ul RBC 4.48 (4.20-5.40) M/uL Hgb 14.0 (12.0-16.0) g/dl POC Hgb 12.9 (12.0-16.0) g/dl Hct 43.7 (37.0-47.0) % POC Hct 38 (37-47) % MCV 97.5 (80.0-100.0) fL MCH 31.3 (25.0-34.0) pg MCHC 32.0 (32.0-36.0) g/dL RDW Std Deviation 47.9 H (36.4-46.3) fL RDW Coeff of Scar 13.3 (11.5-14.5) % Plt Count 347 (130-400) K/uL MPV 10.1 (9.4-12.4) fL Immature Gran % (Auto) 1.7 % Neut % (Auto) 61.7 % Lymph % (Auto) 23.0 % [place] % (Auto) 10.5 % Eos % (Auto) 2.7 % Baso % (Auto) 0.4 % Neut # (Auto) 8.54 H (1.40-6.50) K/uL Lymph # (Auto) 3.19 (1.20-3.40) K/uL [place] # (Auto) 1.45 H (0.11-0.59) K/uL Eos # (Auto) 0.37 (0.00-0.50) K/uL Baso # (Auto) 0.06 (0.00-0.20) K/uL Immature Gran # (Auto) 0.24 H (0.01-0.20) K/uL PT Cancelled INR Cancelled APTT Cancelled PTT Ratio Cancelled POC Sodium 140 (135-144) mmol/L Sodium 138 (136-145) mmol/L POC Potassium 3.8 (3.3-5.0) mmol/L Potassium 3.8 (3.5-5.1) mmol/L POC Chloride 106 (101-112) mmol/L Chloride 104 (98-107) mmol/L Carbon Dioxide 25 (21-32) mmol/L POC Total CO2 26 (24-31) mmol/L Anion Gap 9 (3-11) POC Anion Gap 14.0 L (16-25) mmol/L POC BUN 16 (7-18) mg/dl BUN 16 (6-23) mg/dl Creatinine 1.31 H (0.6-1.2) mg/dl POC Creatinine 1.3 (0.6-1.3) mg/dl Est Cr Clr Drug Dosing 41.6 ml/min Est GFR ( Amer) 47.0 ml/min Est GFR (Non-Af Amer) 40.6 ml/min BUN/Creatinine Ratio 12.2 (10-20) Glucose 133 H (70-99(Fasting)) mg/dl POC Glucose (other) 129 H (70-99) mg/dl Calcium 9.2 (8.6-10.3) mg/dl POC Ioniz Calcium Marko 1.15 (1.12-1.32) mmol/l Magnesium 1.7 (1.7-2.4) mg/dl Total Bilirubin 0.4 (0.2-1.0) mg/dl AST 18 (13-39) U/L ALT 14 (7-52) U/L Alkaline Phosphatase 91 (34-104) U/L Troponin I High Sens 5.1 (0-14) pg/ml Total Protein 7.5 (6.0-8.3) gm/dl Albumin 3.8 (3.4-5.0) gm/dl Globulin 3.7 (2.5-4.0) gm/dl Albumin/Globulin Ratio 1.0 (0.9-2) Adenovirus (PCR) Not Detected (NotDetected) B. pertussis DNA (PCR) Not Detected (NotDetected) B.parapertussis DNA PCR Not Detected (NotDetected) C. pneumoniae DNA (PCR) Not Detected (NotDetected) Coronavirus OC43 (PCR) Not Detected (NotDetected) Coronavirus HKU1 (PCR) Not Detected (NotDetected) Coronavirus 229E (PCR) Not Detected (NotDetected) SARS-CoV-2 (PCR) Not Detected (NotDetected) Coronavirus NL63 (PCR) Not Detected (NotDetected) Human Metapneumovir PCR Not Detected (NotDetected) Influenza Type A (PCR) Not Detected (NotDetected) Influenza Type B (PCR) Not Detected (NotDetected) M. pneumoniae (PCR) Not Detected (NotDetected) Parainfluenza 1 (PCR) Not Detected (NotDetected) Parainfluenza 2 (PCR) Not Detected (NotDetected) Parainfluenza 3 (PCR) Not Detected (NotDetected) Parainfluenza 4 (PCR) Not Detected (NotDetected) RSV (PCR) Not Detected (NotDetected) Entero/Rhino (PCR) Not Detected (NotDetected) 09/24/24 09/24/24 Range/Units 10:08 11:35 WBC (4.8-10.8) K/ul RBC (4.20-5.40) M/uL Hgb (12.0-16.0) g/dl POC Hgb (12.0-16.0) g/dl Hct (37.0-47.0) % POC Hct (37-47) % MCV (80.0-100.0) fL MCH (25.0-34.0) pg MCHC (32.0-36.0) g/dL RDW Std Deviation (36.4-46.3) fL RDW Coeff of Scar (11.5-14.5) % Plt Count (130-400) K/uL MPV (9.4-12.4) fL Immature Gran % (Auto) % Neut % (Auto) % Lymph % (Auto) % [place] % (Auto) % Eos % (Auto) % Baso % (Auto) % Neut # (Auto) (1.40-6.50) K/uL Lymph # (Auto) (1.20-3.40) K/uL [place] # (Auto) (0.11-0.59) K/uL Eos # (Auto) (0.00-0.50) K/uL Baso # (Auto) (0.00-0.20) K/uL Immature Gran # (Auto) (0.01-0.20) K/uL PT Cancelled 11.4 INR Cancelled 1.1 APTT Cancelled 27 PTT Ratio Cancelled 1.0 POC Sodium (135-144) mmol/L Sodium (136-145) mmol/L POC Potassium (3.3-5.0) mmol/L Potassium (3.5-5.1) mmol/L POC Chloride (101-112) mmol/L Chloride (98-107) mmol/L Carbon Dioxide (21-32) mmol/L POC Total CO2 (24-31) mmol/L Anion Gap (3-11) POC Anion Gap (16-25) mmol/L POC BUN (7-18) mg/dl BUN (6-23) mg/dl Creatinine (0.6-1.2) mg/dl POC Creatinine (0.6-1.3) mg/dl Est Cr Clr Drug Dosing ml/min Est GFR ( Amer) ml/min Est GFR (Non-Af Amer) ml/min BUN/Creatinine Ratio (10-20) Glucose (70-99(Fasting)) mg/dl POC Glucose (other) (70-99) mg/dl Calcium (8.6-10.3) mg/dl POC Ioniz Calcium Marko (1.12-1.32) mmol/l Magnesium (1.7-2.4) mg/dl Total Bilirubin (0.2-1.0) mg/dl AST (13-39) U/L ALT (7-52) U/L Alkaline Phosphatase (34-104) U/L Troponin I High Sens (0-14) pg/ml Total Protein (6.0-8.3) gm/dl Albumin (3.4-5.0) gm/dl Globulin (2.5-4.0) gm/dl Albumin/Globulin Ratio (0.9-2) Adenovirus (PCR) (NotDetected) B. pertussis DNA (PCR) (NotDetected) B.parapertussis DNA PCR (NotDetected) C. pneumoniae DNA (PCR) (NotDetected) Coronavirus OC43 (PCR) (NotDetected) Coronavirus HKU1 (PCR) (NotDetected) Coronavirus 229E (PCR) (NotDetected) SARS-CoV-2 (PCR) (NotDetected) Coronavirus NL63 (PCR) (NotDetected) Human Metapneumovir PCR (NotDetected) Influenza Type A (PCR) (NotDetected) Influenza Type B (PCR) (NotDetected) M. pneumoniae (PCR) (NotDetected) Parainfluenza 1 (PCR) (NotDetected) Parainfluenza 2 (PCR) (NotDetected) Parainfluenza 3 (PCR) (NotDetected) Parainfluenza 4 (PCR) (NotDetected) RSV (PCR) (NotDetected) Entero/Rhino (PCR) (NotDetected) Administered Medications Sodium Chloride (Nss) 1,000 mls @ 50 mls/hr IV .Q20H CHRISTINA Stop: 06/15/24 08:59 Last Admin: 05/16/24 09:37 Dose: 50 mls/hr Documented By: MMF Discontinued Medications Aspirin (Aspirin Chew 324 Mg) 324 mg PO NOW STA Stop: 05/16/24 10:59 Last Admin: 05/16/24 11:03 Dose: 324 mg Documented By: MMF Acetaminophen (Ofirmev) 1,000 mg in 100 mls @ 400 mls/hr IV NOW STA Stop: 05/16/24 11:19 Last Infusion: 05/16/24 11:38 Dose: Infused Documented By: Admin: 05/16/24 11:14 Dose: 400 mls/hr Documented By: MMF Ioversol (Optiray 320 125ml) 120 ml IV ONCE ONE Stop: 05/16/24 09:40 Last Admin: 05/16/24 09:40 Dose: 120 ml Documented By: JAR Ioversol (Optiray 320 125ml) 120 ml IV ONCE ONE Stop: 05/16/24 13:47 Last Admin: 05/16/24 13:47 Dose: 120 ml Documented By: PAVELF Lorazepam (Lorazepam 1 Mg Tab) 1 mg PO NOW STA Stop: 05/16/24 13:17 Last Admin: 05/16/24 13:50 Dose: 1 mg Documented By: ML Imaging Data Radiologist's Impression: Chest X-Ray 05/16/24 08:55 XR chest 1V portable HISTORY: 73 years-old Female neuro deficit, acute stroke suspected COMPARISON: 03/23/2023 TECHNIQUE: AP view the chest FINDINGS: Cardiomediastinal and hilar silhouettes are within normal limits. Atherosclerosis of the aorta. No pneumothorax, pleural effusion or airspace consolidation. The bones appear grossly intact. Left-sided rotator cuff calcific tendinosis. Healed chronic left-sided rib fractures. IMPRESSION: No acute process. ACT 112: Negative or not required by law. The above report was generated using voice recognition software. It may contain grammatical, syntax or spelling errors. Electronically signed by: Negro Rodarte M.D. 05/16/2024 9:23 AM Foot X-Ray 05/16/24 08:55 XR foot LT min 3V routine HISTORY: 73 years-old Female fall, lateral pain acute pain of the left foot status post fall COMPARISON: 06/07/2019 TECHNIQUE: 3 views of the left foot FINDINGS: Demineralized appearance of the bones with mostly mild multifocal osteoarthritis. No acute fracture, dislocation or osseous erosion. Small calcaneal enthesophytes. Os peroneum. Possible foreign body within the plantar and lateral tissues, 2 mm on the oblique and lateral views. IMPRESSION: 1. No acute fracture or dislocation. 2. Possible punctate foreign body. ACT 112: Negative or not required by law. The above report was generated using voice recognition software. It may contain grammatical, syntax or spelling errors. Electronically signed by: Negro Rodarte M.D. 05/16/2024 9:[address] 05/16/24 08:55 CT head/brain wo con CLINICAL HISTORY: 73 years-old Female with neuro deficit, acute stroke suspected. Acute stroke like symptoms TECHNIQUE: Multiple axial CT images of the head were obtained without contrast. A dose lowering technique was utilized adhering to the principles of ALARA. COMPARISON: CTA head of same day, head CT 10/09/2018 FINDINGS: No acute intracranial hemorrhage, midline shift, intracranial mass, hydrocephalus, territorial ischemia or abnormal extra-axial collection. Involutional changes with suggestion of chronic microvascular ischemic disease. Cerebral vascular calcifications. The calvarium is intact. Small left mastoid effusion. The right mastoid air cells are clear. Prior partial ethmoidectomy. Mild mucosal thickening with small air-fluid level of the left maxillary sinus. Prior bilateral lens repair. IMPRESSION: No acute intracranial abnormality. ACT 112: Negative or not required by law. The above report was generated using voice recognition software. It may contain grammatical, syntax or spelling errors. Electronically signed by: Negro Rodarte M.D. 05/16/2024 10:05 AM Head CTA 05/16/24 08:55 CT ANGIOGRAM OF THE BRAIN CLINICAL HISTORY: Neurological deficit. Stroke like symptoms. COMPARISON STUDY: Unenhanced CT of the brain performed concurrently on 05/16/2024. MR angiography of the brain dated 09/16/2013. TECHNIQUE: Following the IV administration of 120 cc of Optiray 320, CT angiogram of the brain was performed from the skull base to the vertex. Images are reviewed in the axial, sagittal, and coronal planes. 3-D MIPS images are created and assessed. IV contrast was administered without complication. A dose lowering technique was utilized adhering to the principles of ALARA. FINDINGS: Brain parenchyma: There is age-related involutional change noting minimal microangiopathic disease. There is no evidence of hemorrhage, mass effect, or acute territorial ischemia noting angiographic phase technique. There is no evidence of enhancing mass lesion on the angiogram phase images. No extra-axial fluid collection is seen. Senior-white matter differentiation is preserved. Ventricles, sulci, and cisterns: Prominent secondary to involutional change. CT angiogram of the brain: There is atherosclerotic calcification of the cavernous carotid arteries. The internal carotid arteries are widely patent, as are the anterior and middle cerebral arteries. The vertebrobasilar system and posterior cerebral arteries are widely patent. The vertebral arteries are codominant. There is a right posterior communicating artery. There is no aneurysm, high-grade stenosis, or focal vessel cutoff identified throughout the intracranial circulation. Dural sinuses: Clear as visualized. Orbits: The bony orbits are intact. The orbital contents are normal as visualized noting bilateral ocular lens implants. Sinuses and mastoids: There is evidence of previous paranasal sinus surgery. There is mild mucosal thickening in the left maxillary antrum. Trace mucosal thickening is seen within the sphenoid sinuses, frontal sinuses, and the ethmoid cavity. There are small mastoid effusions, left larger than right. Calvarium: Unremarkable. IMPRESSION: 1. There is no evidence of hemorrhage, mass effect, or acute territorial ischemia noting angiographic phase technique. 2. Unremarkable CT angiogram of the brain. ACT 112: Negative or not required by law. Electronically signed by: Rogelio Nugent M.D. 05/16/2024 9:50 AM Knee X-Ray 05/16/24 08:55 RIGHT KNEE 3 VIEWS CLINICAL HISTORY: Fall. Right knee pain. FINDINGS: AP, crosstable lateral, and sunrise views of the right knee are compared to study dated 07/25/2009. The skeletal structures are osteopenic. No fracture is seen. The joint spaces are maintained. There are tiny marginal osteophytes and patellar enthesophytes. A joint effusion is noted. The overlying soft tissues are normal as imaged. A calcified fabella is observed. IMPRESSION: Joint effusion with no acute bony abnormality identified. Electronically signed by: Rogelio Nugent M.D. 05/16/2024 10:32 AM Neck CTA 05/16/24 08:55 CT angio neck with con CLINICAL HISTORY: 73 years-old Female with neuro deficit, acute stroke suspected. Acute stroke symptoms COMPARISON STUDY: CTA of head of same day TECHNIQUE: Following the IV administration of 1 20 mL of Optiray, CT angiogram of the neck was performed from the aortic arch to the skull base. Images are reviewed in the axial, sagittal, and coronal planes. 3-D MIPS images are created and assessed. IV contrast was administered without complication. All measurements were calculated based on NASCET criteria. A dose lowering technique was utilized adhering to the principles of ALARA. CT DOSE: 1053.29 mGy.cm FINDINGS: Moderate atherosclerosis of the thoracic aortic arch. Patent common and internal carotid arteries without significant atherosclerosis. The vertebral arteries are codominant and widely patent. Mild mucosal thickening of the paranasal sinuses. Small left mastoid effusion. Multilevel degenerative changes of the cervical spine. Pulmonary emphysema. The lung apices appear generally clear. No acute fracture identified. IMPRESSION:Unremarkable CTA of the neck. ACT 112: Negative or not required by law. The above report was generated using voice recognition software. It may contain grammatical, syntax or spelling errors. Electronically signed by: Negro Rodarte M.D. 05/16/2024 10:07 AM Duplex Scan Lower Extremity Artery 05/16/24 08:57 US arterial duplex LE RT CLINICAL HISTORY: leg pain, weakness, cool, diminished pulse TECHNIQUE: Real-time grayscale and color and spectral Doppler ultrasound imaging of the right lower extremity arteries was performed. Measurements calculated based on NASCET criteria. COMPARISON: None available at the time of this dictation. FINDINGS/IMPRESSION: No elevated velocities are seen to suggest hemodynamically significant stenosis. Triphasic waveforms are seen to the level of the femoral artery with biphasic waveforms at the popliteal artery and below. ACT 112: Negative or not required by law. Electronically signed by: To Barney M.D. 05/16/2024 10:58 AM Discharge Plan Visit Data Chief Complaint: Leg Injury/Pain Stated Complaint: CAN'T STAND TO WALK, R LEG AND L FOOT PAIN ED Provider: Charles Omalley Discharge Problem: Ambulatory dysfunction, COPD (chronic obstructive pulmonary disease), Sprain of left foot, Fall, Acute pain of right knee, Right leg weakness Forms Stand Alone Forms: My [facility] Prescriptions Prescriptions: No Action atenolol 25 mg tablet 25 mg PO QAM cholecalciferol (vitamin D3) 50,000 unit Tablet 50,000 unit PO WK Rx Instructions: TAKE THIS MED EVERY WEDNESDAY. potassium chloride 10 mEq tablet,ER particles/crystals 10 meq PO BIDM furosemide 20 mg tablet 20 mg PO DAILY montelukast 10 mg tablet 10 mg PO HS levothyroxine 75 mcg Tablet 75 mcg PO QAM lisinopril 10 mg Tablet 10 mg PO DAILY gabapentin 300 mg Capsule 300 mg PO USEASDIRECTD Rx Instructions: 1 tab AM; 1 tab Midday; 2 tabs PM ropinirole 0.25 mg Tablet 0.25 mg PO HS Rx Instructions: TAKE ONE TABLET BY MOUTH EVERY DAY AT BEDTIME. ipratropium bromide 0.02 % Solution 2.5 ml continuous nebulization Q4H PRN (Reason: Shortness Of Breath Or Wheezing) clotrimazole 10 mg Tyrell 10 mg Mucous Membrane 5XD PRN (Reason: THRUSH) azelastine 137 mcg (0.1 %) aerosol,spray 2 spray Intranasal BID nitroglycerin [Nitrostat] 0.4 mg Tablet, Sublingual 0.4 mg Sublingual UD PRN (Reason: Chest Pain) Rx Instructions: NEEDED FOR CHEST PAIN : ONE TABLET UNDER THE TONGUE EVERY 5 MINUTES UP TO 3 DOSES. pantoprazole 40 mg Tablet,Delayed Release (Dr/Ec) 40 mg PO QAM paroxetine HCl 40 mg tablet 40 mg PO QAM levalbuterol HCl 1.25 mg/3 mL Solution For Nebulization 1.25 mg INHALATION QID PRN (Reason: Shortness Of Breath Or Wheezing) levocetirizine 5 mg Tablet 5 mg PO PM calcium carbonate 500 mg calcium (1,250 mg) Tablet,Chewable 500 mg PO 5XD PRN (Reason: Gi Upset) benzonatate 100 mg Capsule 100 mg PO BID PRN (Reason: Cough) guaifenesin [Mucinex] 600 mg Tablet Extended Release 12hr 600 mg PO BID PRN (Reason: Cough) aspirin 81 mg Capsule 81 mg PO QAM atorvastatin 40 mg tablet 40 mg PO HS alendronate 70 mg tablet 70 mg PO QAM Rx Instructions: TAKE 1 TABLET BY MOUTH ONCE A WEEK WITH 8 OZ WATER 30 MIN BEFORE 1ST MEAL OF THE DAY, REMAIN UPRIGHT FOR 30 MIN AFTER. albuterol sulfate 90 mcg/actuation HFA aerosol inhaler 2 puff INHALATION QID PRN (Reason: SOB/Wheezing) Rx Instructions: INHALE TWO PUFFS BY MOUTH FOUR TIMES A DAY PRN FOR SOB/WHEEZING. Tradjenta 5 mg tablet 5 mg PO QAM Trelegy Ellipta 200-62.5-25 mcg blister with device 1 inh INHALATION DAILY Rx Instructions: Inhale 1 puff by mouth in the morning. lidocaine [Lidoderm] 5 % adhesive patch,medicated 1 patch topical DAILY PRN (Reason: Pain) Rx Instructions: Leave on most painful area for up to 12 hrs. Referrals Referrals: Franca Lilly MD [Primary Care Provider] -
--- NOTE | 2024-05-16 14:21 | CT Scan Report ---
CT ang AA radha baez tamera CLINICAL HISTORY: RLE cold to touch TECHNIQUE: Multidetector row helical CT of the abdomen, pelvis and bilateral lower extremities down t hrough the feet was performed, following intravenous administration of iodinated contrast. No oral co ntrast was administered. Automated dose lowering techniques and/or adjustment according to patient si ze were utilized for this exam. Coronal and sagittal reformations were obtained. MIP and 3D volume re ndered reconstructions were obtained. CT DOSE: 1859.53 mGy.cm Comparison: Comparison is made to right lower extremity Doppler ultrasound 05/16/2024 FINDINGS: Lower chest: A few blebs are noted in the lower lungs. Liver: Unremarkable. No focal lesions are seen. Gallbladder and biliary tree: Cholelithiasis is seen without evidence of cholecystitis. No intra- or extrahepatic biliary ductal dilation. Pancreas: Unremarkable, no focal lesions. Spleen: Unremarkable. Adrenals: Unremarkable. Kidneys and ureters: Renal cysts are seen. Bladder: Unremarkable. Reproductive organs: Unremarkable. Bowel: Diverticulosis is seen without evidence of diverticulitis. There is a small hiatal hernia. Lymph nodes Retroperitoneal: Hugh hepatis nodes measure up to 12 mm in diameter. Pelvic: Unremarkable. Mesenteric: Unremarkable. Peritoneum: Normal. Abdominal wall: Unremarkable. Bones: Degenerative changes in the visualized spine. CT angiogram: The abdominal aortic contours appear intact without evidence of aneurysmal dilatation a nd/or dissection. Scattered atherosclerotic calcifications of the abdominal aorta and its major bran ches. The origins of the celiac axis, superior mesenteric, inferior mesenteric and bilateral renal arteries are patent. The right common iliac artery is patent. The right internal iliac artery is patent. The right exter nal iliac artery is patent. The right common femoral artery is patent. The right deep femoral arter y is patent. The right superficial femoral artery is patent. The right popliteal artery is patent. Three-vessel runoff is identified in the right lower extremity. The right anterior tibial is patent. The posterior tibial artery is patent. The right peroneal artery is patent. Three-vessel runoff i s identified down to the level of the right foot. The left common iliac artery is patent. The left internal iliac artery is patent. The left external iliac artery is patent. The left common femoral artery is patent. The left deep femoral artery is patent. The left superficial femoral artery is patent. The left popliteal artery is patent. Three- vessel runoff is identified in the left lower extremity. The left anterior tibial is patent. The lef t posterior tibial artery is patent. The left peroneal artery is patent. Three-vessel runoff is iden tified down to the level of the left foot. IMPRESSION: 1. No evidence of hemodynamically significant stenosis, extravasation or dissection. 2. Nonspecific uhgh hepatis lymph nodes which may be reactive. 3. Additional findings as above. ACT 112: Negative or not required by law. Electronically signed by: To Barney M.D. 05/16/2024 2:19 PM
[2024-05-16] MEDS: GADOBUTROL 65ML VIAL IV ONE (14:22)
--- NOTE | 2024-05-16 14:35 | Magnetic Resonance Report ---
MR brain wo/w con CLINICAL HISTORY: Stroke rule-out TECHNIQUE: Multiplanar and multisequence MR images of the brain were obtained prior to and following administration of gadolinium contrast. Comparison: Comparison is made to MRI brain 09/16/[address] head 05/16/2024 FINDINGS: No abnormal restricted diffusion is identified. The white matter is unremarkable. The ventricular sys tem is normal in appearance. No mass or abnormal enhancement is seen. There is no mass effect or midl ine shift. There is no evidence of acute intraparenchymal hemorrhage. No extra axial fluid collection s are seen. The corpus callosum, pituitary gland, and cerebellar tonsils appear grossly unremarkable. Flow voids of the major intracranial arterial vessels are identified. The imaged portions of the para nasal sinuses, mastoid air cells, and orbits are unremarkable. Incidental note is made of bilateral l ens replacements. IMPRESSION: No acute abnormality and in particular no evidence of acute infarct. ACT 112: Negative or not required by law. Electronically signed by: To Barney M.D. 05/16/2024 2:33 PM
[2024-05-16] MEDS ORDERED: PHARMACIST DISCHARGE MED REC CONSULT PRN (15:45)
[2024-05-16] MEDS ORDERED: GLUCOSE 40% GEL 15 GM TUBE PO PRN (15:45)
[2024-05-16] MEDS ORDERED: GLUCOSE 10 TAB/TUBE PO PRN (15:45)
[2024-05-16] MEDS ORDERED: ONDANSETRON INJ 2 MG/ML 2 ML VIAL IV PRN (15:45)
[2024-05-16] MEDS ORDERED: POLYETHYLENE (MIRALAX) 17 GM PACK PO PRN (15:45)
[2024-05-16] MEDS ORDERED: GLUCAGON FOR INJ 1 MG VIAL SQ PRN (15:45)
[2024-05-16] MEDS ORDERED: DEXTROSE 50% 50 ML SYRINGE IV PRN (15:45)
[2024-05-16] MEDS ORDERED: CARBOHYDRATES FOR HYPOGLYCEMIA PO PRN (15:45)
[2024-05-16] MEDS: GABAPENTIN 300 MG CAP PO SCH ×2 (16:46→21:04)
[2024-05-16] MEDS: cefTRIAXone SODIUM 2,000 MG/50 ML BAG IV SCH (16:46)
[2024-05-16] MEDS: POTASSIUM CHLORIDE 10 MEQ TABCR PO SCH (16:46)
--- NOTE | 2024-05-16 16:49 | Orthopedic Consultation ---
Date of Consultation May 16, 2024 Assessment & Plan (1) Hemarthrosis, right knee: I drained the patient's knee today bedside and got 48 cc of blood. After I drained it I had her move her knee around she said that it did feel better. I did a compressive wrap for her. Recommend icing and elevating. Fluid was sent off for cell count, Gram stain, cultures, crystals, Lyme. This is likely a traumatic hemarthrosis secondary to her fall this morning. She said that she has had issues with her knee prior to her falling and recommend outpatient follow-up for further management. Patient can be WBAT. Sent fluid off for testing will continue to monitor. PT/OT. PROCEDURE:After explaining the risks and benefits of the procedure, verbal consent was obtained andthe patient was placed in the supine position. The injection site was confirmed by MARIALUISA Molina. After performing a time-out, identifying the right knee as the correct knee for intra-articular aspiration, the suprapatellar portal area was palpated and marked. This area was prepped with Betadine and alcohol wipe. Then, 8 mL of 1% lidocaine was used to anesthetize the aspiration site. Then using an 18-gauge needle with a 30 cc syringe I aspirated 48 cc of bloody fluid.The area was cleaned and dried and a Band-Aid was placed on the top. Patient noted immediate relief and was able to move her knee better. I put her in compressive mario wrap. (2) Left ankle pain: Obtain x rays LT ankle, ice elevate. Depending on what x rays look like would recommend tall cam boot. Will continue to follow. Supervising Physician Co-Signing Physician Notes I discussed the management with my PA. I reviewed my PAs note and agree with the documented findings and medical decision making and plan of care I developed. History of Present Illness Reason for Consultation: R knee effusion, left ankle pain Requesting Physician: Laurita Rodriguez MD Attending Physician: Chani Haley MD History of Present Illness Danni is a 73-year-old female who reportedly sustained a fall this morning. We were consulted for right knee effusion. She says that she has been having some issues with this knee and it giving out on her. She does not currently see any orthopedist. She says that she fell this morning and she also twisted her left ankle/foot. Difficult to obtain a good history with her. She says that she is having difficulty walking. She denies any history of gout or any recent tick bites or rashes. She denies any recent illnesses. She is not on any blood thinners. Allergies Allergy/AdvReac Type Severity Reaction Status Date / Time adhesive Allergy Intermediate RASH Verified 01/27/22 18:41 Quinolones Allergy Intermediate LEVAQUIN Verified 01/27/22 18:41 codeine AdvReac Severe "BECAME Verified 01/27/22 18:41 ADDICTED TO MED" PREFERS NOT TO TAKE IF POSSIBLE. morphine AdvReac Severe ADDICTION-PREFERS Verified 01/27/22 18:41 NOT TO TAKE IF POSSIBLE. linagliptin AdvReac Mild hypoglycemi Verified 01/27/22 18:41 a Home Medications Medication Instructions Recorded Confirmed Type atenolol 25 mg tablet 25 mg PO QAM 10/09/18 05/16/24 History azelastine 137 mcg (0.1 %) nasal 2 spray intranasal BID 10/09/18 05/16/24 History spray calcium carbonate 500 mg PO 5XD PRN Gi Upset 10/09/18 05/16/24 History cholecalciferol (vitamin D3) 1,250 50,000 unit PO WK 10/09/18 05/16/24 History mcg (50,000 unit) tablet clotrimazole 10 mg tyrell 10 mg mucous membrane 5XD PRN 10/09/18 05/16/24 History THRUSH furosemide 20 mg tablet 20 mg PO DAILY 10/09/18 05/16/24 History gabapentin 300 mg capsule 300 mg PO USEASDIRECTD 10/09/18 05/16/24 History ipratropium bromide 0.02 % 2.5 ml continuous nebulization Q4H 10/09/18 05/16/24 History solution for inhalation PRN Shortness Of Breath Or Wheezing levalbuterol HCl 1.25 mg/3 mL 1.25 mg inhalation QID PRN 10/09/18 05/16/24 History solution for nebulization Shortness Of Breath Or Wheezing levocetirizine 5 mg tablet 5 mg PO PM 10/09/18 05/16/24 History levothyroxine 75 mcg tablet 75 mcg PO QAM 10/09/18 05/16/24 History lisinopril 10 mg tablet 10 mg PO DAILY 10/09/18 05/16/24 History montelukast 10 mg tablet 10 mg PO HS 10/09/18 05/16/24 History nitroglycerin 0.4 mg sublingual 0.4 mg sublingual UD PRN Chest Pain 10/09/18 05/16/24 History tablet (Nitrostat) pantoprazole 40 mg tablet,delayed 40 mg PO QAM 10/09/18 05/16/24 History release paroxetine HCl 40 mg tablet 40 mg PO QAM 10/09/18 05/16/24 History potassium chloride 10 mEq 10 meq PO BIDM 10/09/18 05/16/24 History tablet,extended release(part/cryst) ropinirole 0.25 mg tablet 0.25 mg PO HS 10/09/18 05/16/24 History aspirin 81 mg capsule 81 mg PO QAM 01/27/22 05/16/24 History benzonatate 100 mg capsule 100 mg PO BID PRN Cough 01/27/22 05/16/24 History guaifenesin 600 mg tablet, 600 mg PO BID PRN Cough 01/27/22 05/16/24 History extended release 12 hr (Mucinex) albuterol sulfate 90 mcg/actuation 2 puff inhalation QID PRN 05/16/24 05/16/24 History aerosol inhaler SOB/Wheezing alendronate 70 mg tablet 70 mg PO QAM 05/16/24 05/16/24 History atorvastatin 40 mg tablet 40 mg PO HS 05/16/24 05/16/24 History fluticasone fur. 200 mcg-umeclid 1 inh inhalation DAILY 05/16/24 05/16/24 History 62.5 mcg-vilant 25 mcg inhalat.powder (Trelegy Ellipta) lidocaine 5 % topical patch 1 patch topical DAILY PRN Pain 05/16/24 05/16/24 History (Lidoderm) linagliptin 5 mg tablet (Tradjenta) 5 mg PO QAM 05/16/24 05/16/24 History Patient History Medical History (Updated 05/16/24 @ 16:54 by Judith Monroe PA-C) COPD (chronic obstructive pulmonary disease) Diabetes Social History Smoking Status: Current every day smoker Tobacco Type: Cigarettes Second Hand Exposure: Yes; Do You Dip or Chew Tobacco: No; Tobacco Cessation Education Requested by Patient: No Hx Alcohol Use: No Hx Substance Use: No Preferred Language: German Communication Ability: Effective Nut Grinder Required: No Beliefs That Will Affect Care: None Current Living Situation: Alone Other Information That Helps Us Care for You: No Feels Safe at Home: Yes Safety Concerns: Feels Safe At This Time Assistive Devices: Cane, Oxygen - at Night and Walker Physical Exam Physical Exam: Patient is lying in the hospital bed in no acute distress. She sometimes dozes off during exam. Her answers to questioning are very short and vague. Right knee: She has there are no major breaks in her skin over her right knee. She has a moderate knee effusion noted. She is tender to palpate over the medial and lateral joint line as well as the suprapatella pouch. She has full extension and can bend her knee to 100 degrees. Strength is intact. She has a 1+ dorsal pedal pulse present. Her skin is perfusable distally. She has sensation intact distally to light touch. She is able to do a straight leg raise. Her MCL and LCL feel intact with varus and valgus stress. I do not appreciate any laxity with Nidia's testing. Patella is mobile however patient does have pain with this. Left foot/ankle: She does have some abrasions over her left leg, over her sanchez area. She has significant swelling and bruising over the lateral aspect of her foot and ankle. She has point tenderness over the lateral and medial aspect of her ankle as well as the lateral aspect dorsally of her foot. I do not see any breaks in her skin over her foot. She can wiggle all of her toes but has difficulty doing dorsiflexion and plantarflexion. Any type of movement with her ankle causes her pain. Results & Data Vital Signs (Past 12 Hours) Vital Signs Temp Pulse Pulse Resp BP BP Pulse Ox 05/16/24 15:30 58 L 20 102/60 94 05/16/24 14:47 61 19 122/75 92 05/16/24 13:08 62 05/16/24 12:00 99/63 L 05/16/24 11:57 68 19 94 05/16/24 11:39 67 25 H 92 05/16/24 11:00 112/64 05/16/24 11:00 112/64 05/16/24 10:06 74 22 94 05/16/24 10:00 110/61 05/16/24 09:57 74 24 94 05/16/24 09:39 79 24 93 05/16/24 09:37 116/71 05/16/24 09:37 116/71 05/16/24 09:09 81 05/16/24 08:22 36.6 C 92 H 20 122/74 94 O2 Del Method 05/16/24 15:30 Room Air 05/16/24 14:47 Room Air 05/16/24 13:08 05/16/24 12:00 05/16/24 11:57 05/16/24 11:39 05/16/24 11:00 05/16/24 11:00 05/16/24 10:06 05/16/24 10:00 05/16/24 09:57 05/16/24 09:39 05/16/24 09:37 05/16/24 09:37 05/16/24 09:09 05/16/24 08:22 Room Air Laboratory Results 05/16/24 05/16/24 05/16/24 Range/Units 12:30 11:35 10:08 WBC (4.8-10.8) K/ul RBC (4.20-5.40) M/uL Hgb (12.0-16.0) g/dl POC Hgb (12.0-16.0) g/dl Hct (37.0-47.0) % POC Hct (37-47) % MCV (80.0-100.0) fL MCH (25.0-34.0) pg MCHC (32.0-36.0) g/dL RDW Std Deviation (36.4-46.3) fL RDW Coeff of Scar (11.5-14.5) % Plt Count (130-400) K/uL MPV (9.4-12.4) fL Immature Gran % (Auto) % Neut % (Auto) % Lymph % (Auto) % [place] % (Auto) % Eos % (Auto) % Baso % (Auto) % Neut # (Auto) (1.40-6.50) K/uL Lymph # (Auto) (1.20-3.40) K/uL [place] # (Auto) (0.11-0.59) K/uL Eos # (Auto) (0.00-0.50) K/uL Baso # (Auto) (0.00-0.20) K/uL Immature Gran # (Auto) (0.01-0.20) K/uL PT 11.4 Cancelled INR 1.1 Cancelled APTT 27 Cancelled PTT Ratio 1.0 Cancelled POC Sodium (135-144) mmol/L Sodium (136-145) mmol/L POC Potassium (3.3-5.0) mmol/L Potassium (3.5-5.1) mmol/L POC Chloride (101-112) mmol/L Chloride (98-107) mmol/L Carbon Dioxide (21-32) mmol/L POC Total CO2 (24-31) mmol/L Anion Gap (3-11) POC Anion Gap (16-25) mmol/L POC BUN (7-18) mg/dl BUN (6-23) mg/dl Creatinine (0.6-1.2) mg/dl POC Creatinine (0.6-1.3) mg/dl Est Cr Clr Drug Dosing ml/min Est GFR ( Amer) ml/min Est GFR (Non-Af Amer) ml/min BUN/Creatinine Ratio (10-20) Glucose (70-99(Fasting)) mg/dl POC Glucose (other) (70-99) mg/dl Calcium (8.6-10.3) mg/dl POC Ioniz Calcium Marko (1.12-1.32) mmol/l Magnesium (1.7-2.4) mg/dl Total Bilirubin (0.2-1.0) mg/dl AST (13-39) U/L ALT (7-52) U/L Alkaline Phosphatase (34-104) U/L Troponin I High Sens (0-14) pg/ml Total Protein (6.0-8.3) gm/dl Albumin (3.4-5.0) gm/dl Globulin (2.5-4.0) gm/dl Albumin/Globulin Ratio (0.9-2) Nasal Screen MRSA (PCR) Negative (Negative) Adenovirus (PCR) (NotDetected) B. pertussis DNA (PCR) (NotDetected) B.parapertussis DNA PCR (NotDetected) C. pneumoniae DNA (PCR) (NotDetected) Coronavirus OC43 (PCR) (NotDetected) Coronavirus HKU1 (PCR) (NotDetected) Coronavirus 229E (PCR) (NotDetected) SARS-CoV-2 (PCR) (NotDetected) Coronavirus NL63 (PCR) (NotDetected) Human Metapneumovir PCR (NotDetected) Influenza Type A (PCR) (NotDetected) Influenza Type B (PCR) (NotDetected) M. pneumoniae (PCR) (NotDetected) Parainfluenza 1 (PCR) (NotDetected) Parainfluenza 2 (PCR) (NotDetected) Parainfluenza 3 (PCR) (NotDetected) Parainfluenza 4 (PCR) (NotDetected) RSV (PCR) (NotDetected) Entero/Rhino (PCR) (NotDetected) 05/16/24 05/16/24 05/16/24 Range/Units 09:17 09:03 08:35 WBC 13.85 H (4.8-10.8) K/ul RBC 4.48 (4.20-5.40) M/uL Hgb 14.0 (12.0-16.0) g/dl POC Hgb 12.9 (12.0-16.0) g/dl Hct 43.7 (37.0-47.0) % POC Hct 38 (37-47) % MCV 97.5 (80.0-100.0) fL MCH 31.3 (25.0-34.0) pg MCHC 32.0 (32.0-36.0) g/dL RDW Std Deviation 47.9 H (36.4-46.3) fL RDW Coeff of Scar 13.3 (11.5-14.5) % Plt Count 347 (130-400) K/uL MPV 10.1 (9.4-12.4) fL Immature Gran % (Auto) 1.7 % Neut % (Auto) 61.7 % Lymph % (Auto) 23.0 % [place] % (Auto) 10.5 % Eos % (Auto) 2.7 % Baso % (Auto) 0.4 % Neut # (Auto) 8.54 H (1.40-6.50) K/uL Lymph # (Auto) 3.19 (1.20-3.40) K/uL [place] # (Auto) 1.45 H (0.11-0.59) K/uL Eos # (Auto) 0.37 (0.00-0.50) K/uL Baso # (Auto) 0.06 (0.00-0.20) K/uL Immature Gran # (Auto) 0.24 H (0.01-0.20) K/uL PT Cancelled INR Cancelled APTT Cancelled PTT Ratio Cancelled POC Sodium 140 (135-144) mmol/L Sodium 138 (136-145) mmol/L POC Potassium 3.8 (3.3-5.0) mmol/L Potassium 3.8 (3.5-5.1) mmol/L POC Chloride 106 (101-112) mmol/L Chloride 104 (98-107) mmol/L Carbon Dioxide 25 (21-32) mmol/L POC Total CO2 26 (24-31) mmol/L Anion Gap 9 (3-11) POC Anion Gap 14.0 L (16-25) mmol/L POC BUN 16 (7-18) mg/dl BUN 16 (6-23) mg/dl Creatinine 1.31 H (0.6-1.2) mg/dl POC Creatinine 1.3 (0.6-1.3) mg/dl Est Cr Clr Drug Dosing 41.6 ml/min Est GFR ( Amer) 47.0 ml/min Est GFR (Non-Af Amer) 40.6 ml/min BUN/Creatinine Ratio 12.2 (10-20) Glucose 133 H (70-99(Fasting)) mg/dl POC Glucose (other) 129 H (70-99) mg/dl Calcium 9.2 (8.6-10.3) mg/dl POC Ioniz Calcium Marko 1.15 (1.12-1.32) mmol/l Magnesium 1.7 (1.7-2.4) mg/dl Total Bilirubin 0.4 (0.2-1.0) mg/dl AST 18 (13-39) U/L ALT 14 (7-52) U/L Alkaline Phosphatase 91 (34-104) U/L Troponin I High Sens 5.1 (0-14) pg/ml Total Protein 7.5 (6.0-8.3) gm/dl Albumin 3.8 (3.4-5.0) gm/dl Globulin 3.7 (2.5-4.0) gm/dl Albumin/Globulin Ratio 1.0 (0.9-2) Nasal Screen MRSA (PCR) (Negative) Adenovirus (PCR) Not Detected (NotDetected) B. pertussis DNA (PCR) Not Detected (NotDetected) B.parapertussis DNA PCR Not Detected (NotDetected) C. pneumoniae DNA (PCR) Not Detected (NotDetected) Coronavirus OC43 (PCR) Not Detected (NotDetected) Coronavirus HKU1 (PCR) Not Detected (NotDetected) Coronavirus 229E (PCR) Not Detected (NotDetected) SARS-CoV-2 (PCR) Not Detected (NotDetected) Coronavirus NL63 (PCR) Not Detected (NotDetected) Human Metapneumovir PCR Not Detected (NotDetected) Influenza Type A (PCR) Not Detected (NotDetected) Influenza Type B (PCR) Not Detected (NotDetected) M. pneumoniae (PCR) Not Detected (NotDetected) Parainfluenza 1 (PCR) Not Detected (NotDetected) Parainfluenza 2 (PCR) Not Detected (NotDetected) Parainfluenza 3 (PCR) Not Detected (NotDetected) Parainfluenza 4 (PCR) Not Detected (NotDetected) RSV (PCR) Not Detected (NotDetected) Entero/Rhino (PCR) Not Detected (NotDetected) Diagnostic Findings Foot X-Ray 05/16/24 08:55 XR foot LT min 3V routine HISTORY: 73 years-old Female fall, lateral pain acute pain of the left foot status post fall COMPARISON: 06/07/2019 TECHNIQUE: 3 views of the left foot FINDINGS: Demineralized appearance of the bones with mostly mild multifocal osteoarthritis. No acute fracture, dislocation or osseous erosion. Small calcaneal enthesophytes. Os peroneum. Possible foreign body within the plantar and lateral tissues, 2 mm on the oblique and lateral views. IMPRESSION: 1. No acute fracture or dislocation. 2. Possible punctate foreign body. ACT 112: Negative or not required by law. The above report was generated using voice recognition software. It may contain grammatical, syntax or spelling errors. Electronically signed by: Negro Rodarte M.D. 05/16/2024 9:22 AM Knee X-Ray 05/16/24 08:55 RIGHT KNEE 3 VIEWS CLINICAL HISTORY: Fall. Right knee pain. FINDINGS: AP, crosstable lateral, and sunrise views of the right knee are compared to study dated 07/25/2009. The skeletal structures are osteopenic. No fracture is seen. The joint spaces are maintained. There are tiny marginal osteophytes and patellar enthesophytes. A joint effusion is noted. The overlying soft tissues are normal as imaged. A calcified fabella is observed. IMPRESSION: Joint effusion with no acute bony abnormality identified. Electronically signed by: Rogelio Nugent M.D. 05/16/2024 10:32 AM
[2024-05-16 17:43] LABS: Appearance Synovial Fluid Bloody; Color Synovial Fluid Red; Mononuclear WBC Synovial 34.3 %; Polynuclear WBC Synovial 65.7 %; RBC Synovial Fluid Auto 1507000 /uL; Source Synovial Fluid Right Knee; WBC Synovial Fluid Auto 7106 /ul (0-200)
[2024-05-16] MEDS: INSULIN ASPART PER UNIT CHARGE SC SCH (18:25)
--- NOTE | 2024-05-16 19:06 | XRay Report ---
XR ankle LT min 3V routine CLINICAL HISTORY: lt ankle pain TECHNIQUE: 3 views of the left ankle were obtained. Comparison: Comparison is made to foot radiographs 05/16/2024 FINDINGS: No fractures are present. The joint spaces are well preserved. No soft tissue abnormality is seen. Os perineum incidentally noted. The previously noted plantar radiodensity is not well seen on this exam . IMPRESSION: No evidence of acute bony injury. ACT 112: Negative or not required by law. Electronically signed by: To Barney M.D. 05/16/2024 7:04 PM
[2024-05-16] MEDS: MONTELUKAST SODIUM 10 MG TABLET PO SCH (21:03)
[2024-05-16] MEDS: AZELASTINE HCL 0.1% NASAL 200 SPRAYS/27,400 MCG BTL SCH (21:03)
[2024-05-16] MEDS: CETIRIZINE HCL 10 MG TABLET PO SCH (21:04)
[2024-05-16] MEDS: rOPINIRole HCL 0.25 MG TABLET PO SCH (21:04)
[2024-05-16] MEDS: ATORVASTATIN 40 MG TAB PO SCH (21:04)
[2024-05-16] MEDS: ACETAMINOPHEN 325 MG TAB PO PRN (21:07)
[2024-05-16] MEDS: HEPARIN SOD 5,000 UNIT/0.5 ML VIAL SQ SCH (21:09)
[2024-05-16] MEDS: ALBUT/IPRATROP 3MG/0.5MG NEB 3 ML VIAL NEB SCH (21:21)
[2024-05-17] MEDS: LEVOTHYROXINE SODIUM 75 MCG TABLET PO SCH (06:11)
[2024-05-17 07:17] LABS: BUN Creatinine Ratio 10.5 (10-20); Chol HDL Ratio 2.8 (0-5); Creatinine Clr Calc Pharmacy 38.1 ml/min; Est GFR (African American) 42.3 ml/min; Est GFR (Non-African American) 36.5 ml/min; Magnesium 1.8 mg/dl (1.7-2.4); Phosphorus 3.2 mg/dl (2.5-4.9)
[2024-05-17 07:20] LABS: Hematocrit (blood only) 37.4 % (37.0-47.0); Hemoglobin 12.4 g/dl (12.0-16.0); Mean Corpuscular Hemoglobin 31.5 pg (25.0-34.0); Mean Corpuscular Hgb Conc 33.2 g/dL (32.0-36.0); Mean Corpuscular Volume 94.9 fL (80.0-100.0); Mean Platelet Volume 10.4 fL (9.4-12.4); Platelet Count 290 K/uL (130-400); RDW Coefficient of Variation 13.2 % (11.5-14.5); RDW Standard Deviation 46.2 fL (36.4-46.3); Red Blood Count 3.94 M/uL (4.20-5.40); White Blood Count 11.57 K/ul (4.8-10.8)
--- NOTE | 2024-05-17 07:21 | Hospitalist Progress Note ---
Date of Service May 17, 2024 Assessment & Plan (1) Syncope and collapse: Plan Ms. Danni Patricio is a 73y/o woman with PMHx of DM type II, CKD stage III, hypothyroidism, HLD, COPD, chronic respiratory failure with hypoxia, systolic heart failure due to idiopathic cardiomyopathy, HTN, vitamin D deficiency, GERD without esophagitis, osteoarthritis, macular degeneration, anxiety/depression, tobacco use disorder and other problems admitted for syncope evaluation. Patient reports sudden BLE weakness and "blacking out." Patient reports feeling well today, however has yet to ambulate since admission. Denies presyncopal episodes previously #Syncope & Collapse: Head & neck CTA negative. Brain MRI without evidence of acute infarct ECHO 05/16 EF 55-60%, poorly visualized anatomy however no apparent significant stenosis Neuro consult pending, however, suspicious for either medication related (BP in 120s without lisinopril) v vasovagal 2/2 pain -No eeg required -Should consider sleep study as OP r/o MIHAI -ZIO patch as an outpatient PT/OT evals pending Orthostatic vitals pending. Urine culture and blood culture pending Tad Dot form to be placed #LLE Wounds: Sustained from patient's previous fall on Wednesday as per HPI. Wounds w/ surrounding erythema and warmth to touch on exam, WBC 13k. UA still pending. MRSA swab pending. Wound cx pending. Will start her on IV Rocephin for now. Wound care consult pending. #R knee Hemarthrosis # L Foot Pain & ecchymosis 2/2 mechanical falls RLE arterial duplex US w/o any significant stenosis. CTA abd aorta w/ runoff without stenosis R knee joint effusion noted on R knee XR, no fx's were noted. Ortho consult: s/p aspiration of 48cc blood, cultures sent 05/16 Continue with ice and elevation L foot XR w/ no acute fx or dislocation, but does note a possible punctate foreign body. Podiatry consult pending. #HTN Monitor BP Hold lisinopril 10mg Continue Atenolol 25mg #COPD, Chronic Respiratory Failure w/ Hypoxia: CXR & RVP both negative. Notable expiratory wheezing heard on exam. Scheduled Duonebs ordered. Uses 2L O2 HS at baseline - ordered. Continue home meds. 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 SSI regimen while inpatient. BSG checks ACHS. 6.5% 05/17/2024 Other Chronic Medical Conditions: GERD, hypothyroidism, osteoarthritis, HLD, seasonal allergies, anxiety/depression --> Can continue home meds for these specific conditions. DVT Prophylaxis: SQ Heparin Code Status: FULL CODE PCP: Franca Lilly MD Disposition: Admit to Med/Surg + Telemetry Admission and Anticipated Discharge Date Admission Date: May 16, 2024 Subjective Evaluated at bedside Reports left foot pain where ecchymosis is present States she has not ambulated since admitted 2/2 fear of right knee Denies any fevers or chills, reports feeling well otherwise Physical Exam Constitutional: WD/WN, vitals as above Respiratory: normal respiratory effort, lungs clear to auscultation Cardiovascular: RRR, no murmur, no edema Gastrointestinal (Abdomen): normal bowel sounds, soft, nontender, no hepatosplenomegaly Musculoskeletal: right knee in FAUSTO bandage, left anterior abrasion, no purulence noted or fluctuance Results & Data Results & Data Vital Signs (Past 12 Hours) Vital Signs Temp Pulse Pulse Resp BP Pulse Ox O2 Del Method 05/17/24 03:55 84 16 92 Room Air 05/17/24 02:57 36.8 C 82 20 121/76 92 Room Air 05/17/24 01:33 67 05/17/24 00:05 84 17 98 Room Air 05/16/24 23:17 37.0 C 82 20 123/60 92 Room Air 05/16/24 21:24 87 16 92 Room Air 05/16/24 19:31 36.3 C L 72 18 110/69 92 Room Air 05/16/24 19:31 Room Air Laboratory Results Short CBC 05/16/24 05/17/24 Range/Units 08:35 06:21 WBC 13.85 H 11.57 H (4.8-10.8) K/ul Hgb 14.0 12.4 (12.0-16.0) g/dl Hct 43.7 37.4 (37.0-47.0) % Plt Count 347 290 (130-400) K/uL BMP 05/16/24 05/17/24 08:35 06:21 Sodium 138 139 Potassium 3.8 4.0 Chloride 104 106 Carbon Dioxide 25 27 BUN 16 15 Creatinine 1.31 H 1.43 H Glucose 133 H 111 H Calcium 9.2 9.0 Liver Function 05/16/24 Range/Units 08:35 Total Bilirubin 0.4 (0.2-1.0) mg/dl AST 18 (13-39) U/L ALT 14 (7-52) U/L Alkaline Phosphatase 91 (34-104) U/L Albumin 3.8 (3.4-5.0) gm/dl Medications Administered Home Medications Medication Instructions Recorded Confirmed Last Taken atenolol 25 mg tablet 25 mg PO QAM 10/09/18 05/16/24 Unknown azelastine 137 mcg (0.1 %) nasal 2 spray intranasal BID 10/09/18 05/16/24 Unknown spray calcium carbonate 500 mg PO 5XD PRN Gi Upset 10/09/18 05/16/24 Unknown cholecalciferol (vitamin D3) 1,250 50,000 unit PO WK 10/09/18 05/16/24 Unknown mcg (50,000 unit) tablet clotrimazole 10 mg tyrell 10 mg mucous membrane 5XD PRN 10/09/18 05/16/24 Unknown THRUSH furosemide 20 mg tablet 20 mg PO DAILY 10/09/18 05/16/24 Unknown gabapentin 300 mg capsule 300 mg PO USEASDIRECTD 10/09/18 05/16/24 Unknown ipratropium bromide 0.02 % 2.5 ml continuous nebulization Q4H 10/09/18 05/16/24 Unknown solution for inhalation PRN Shortness Of Breath Or Wheezing levalbuterol HCl 1.25 mg/3 mL 1.25 mg inhalation QID PRN 10/09/18 05/16/24 Unknown solution for nebulization Shortness Of Breath Or Wheezing levocetirizine 5 mg tablet 5 mg PO PM 10/09/18 05/16/24 Unknown levothyroxine 75 mcg tablet 75 mcg PO QAM 10/09/18 05/16/24 Unknown lisinopril 10 mg tablet 10 mg PO DAILY 10/09/18 05/16/24 Unknown montelukast 10 mg tablet 10 mg PO HS 10/09/18 05/16/24 Unknown nitroglycerin 0.4 mg sublingual 0.4 mg sublingual UD PRN Chest Pain 10/09/18 05/16/24 Unknown tablet (Nitrostat) pantoprazole 40 mg tablet,delayed 40 mg PO QAM 10/09/18 05/16/24 Unknown release paroxetine HCl 40 mg tablet 40 mg PO QAM 10/09/18 05/16/24 Unknown potassium chloride 10 mEq 10 meq PO BIDM 10/09/18 05/16/24 Unknown tablet,extended release(part/cryst) ropinirole 0.25 mg tablet 0.25 mg PO HS 10/09/18 05/16/24 Unknown aspirin 81 mg capsule 81 mg PO QAM 01/27/22 05/16/24 Unknown benzonatate 100 mg capsule 100 mg PO BID PRN Cough 01/27/22 05/16/24 Unknown guaifenesin 600 mg tablet, 600 mg PO BID PRN Cough 01/27/22 05/16/24 Unknown extended release 12 hr (Mucinex) albuterol sulfate 90 mcg/actuation 2 puff inhalation QID PRN 05/16/24 05/16/24 Unknown aerosol inhaler SOB/Wheezing alendronate 70 mg tablet 70 mg PO QAM 05/16/24 05/16/24 Unknown atorvastatin 40 mg tablet 40 mg PO HS 05/16/24 05/16/24 Unknown fluticasone fur. 200 mcg-umeclid 1 inh inhalation DAILY 05/16/24 05/16/24 Unknown 62.5 mcg-vilant 25 mcg inhalat.powder (Trelegy Ellipta) lidocaine 5 % topical patch 1 patch topical DAILY PRN Pain 05/16/24 05/16/24 Unknown (Lidoderm) linagliptin 5 mg tablet (Tradjenta) 5 mg PO QAM 05/16/24 05/16/24 Unknown Active Medications Generic Name Dose Route Start Last Admin Trade Name Freq PRN Reason Stop Dose Admin Acetaminophen 650 mg 05/16/24 15:45 05/17/24 06:12 Acetaminophen 325 Mg Tab PO 06/15/24 15:44 650 mg Q4H PRN Administration pain/fever Albuterol 3 ml 05/16/24 19:00 05/17/24 03:55 Albut/Ipratrop 3mg/0.5mg Neb 3 Ml Vial NEB 06/15/24 18:59 3 ml Q4R CHRISTINA Administration Protocol Atorvastatin Calcium 40 mg 05/16/24 21:00 05/16/24 21:04 Atorvastatin 40 Mg Tab PO 06/15/24 20:59 40 mg HS CHRISTINA Administration Azelastine HCl 2 sprays 05/16/24 21:00 05/16/24 21:03 Azelastine Hcl 0.1% Nasal 200 Sprays/27,400 Mcg Btl NA 06/15/24 20:59 2 sprays BID CHRISTINA Administration Cetirizine HCl 10 mg 05/16/24 21:00 05/16/24 21:04 Cetirizine Hcl 10 Mg Tablet PO 06/15/24 20:59 10 mg HS CHRISTINA Administration Gabapentin 300 mg 05/16/24 16:00 05/16/24 16:46 Gabapentin 300 Mg Cap PO 06/15/24 15:59 300 mg BID@0900,1400 CHRISTINA Administration Gabapentin 300 mg 05/16/24 21:00 05/16/24 21:04 Gabapentin 300 Mg Cap PO 06/15/24 20:59 300 mg HS CHRISTINA Administration Heparin Sodium (Porcine) 5,000 units 05/16/24 21:00 05/16/24 21:09 Heparin Sod 5,000 Unit/0.5 Ml Vial SQ 06/15/24 20:59 5,000 units Q12 CHRISTINA Administration Ceftriaxone Sodium 2,000 mg in 50 mls @ 100 mls/hr 05/16/24 16:00 05/16/24 17:24 Rocephin IV 05/23/24 15:59 Infused Q24H CRHISTINA Infusion Insulin Aspart 0 units 05/16/24 16:30 05/16/24 21:05 Insulin Aspart Per Unit Charge SC 06/15/24 16:29 Not Given ACHS CHRISTINA Levothyroxine Sodium 75 mcg 05/17/24 06:30 05/17/24 06:11 Levothyroxine Sodium 75 Mcg Tablet PO 06/16/24 06:29 75 mcg DAILYBB CHRISTINA Administration Montelukast Sodium 10 mg 05/16/24 21:00 05/16/24 21:03 Montelukast Sodium 10 Mg Tablet PO 06/15/24 20:59 10 mg HS CHRISTINA Administration Potassium Chloride 10 meq 05/16/24 17:00 05/16/24 16:46 Potassium Chloride 10 Meq Tabcr PO 06/15/24 16:59 10 meq BIDM CHRISTINA Administration Ropinirole HCl 0.25 mg 05/16/24 21:00 05/16/24 21:04 Ropinirole Hcl 0.25 Mg Tablet PO 06/15/24 20:59 0.25 mg HS CHRISTINA Administration
[2024-05-17 07:48] LABS: Estimated Average Glucose 140 mg/dl; Hemoglobin A1C 6.5 % (4.5-5.6)
[2024-05-17] MEDS: ATENOLOL 25 MG TABLET PO SCH (08:52)
[2024-05-17] MEDS: ASPIRIN 81 MG ECTAB PO SCH (08:52)
[2024-05-17] MEDS: PARoxetine HCL 20 MG TAB PO SCH (08:52)
[2024-05-17] MEDS: FUROSEMIDE 20 MG TAB PO SCH (08:53)
[2024-05-17] MEDS: UMECLIDINIUM/VILANTEROL 62.5/25MCG 7 PUFFS/INHALER INH SCH (08:53)
[2024-05-17] MEDS: FLUTICASONE FUROATE 200MCG 14 PUFFS/INHALER INH SCH (08:54)
[2024-05-17] MEDS ORDERED: NON-FORMULARY MEDICATION (Fluticasone-Umeclidin-Vilanter [Trelegy Ellipta] 200-62.5-25 mcg INH SCH (09:00)
[2024-05-17] MEDS ORDERED: lisinopril 10 MG TAB PO SCH (09:00)
--- NOTE | 2024-05-17 09:12 | Neurology Consultation ---
Date of Consultation May 17, 2024 Assessment & Plan (1) Syncope and collapse: Reported Syncopal episode -less likely seizure, however recommend continue to provide seizure precautions No evidence of stroke per MRI CTA head & neck without evidence suggestive of causative pathology Agree with continued close telemetry monitoring Continue to monitor orthostatic vitals Echocardiogram as part of complete workup Continue frequent neurological assessments Obtain stat CT brain without contrast for any acute neurological decline Continue to monitor/control blood pressure & blood glucose Recommend ZioPatch at DC if no evidence of arrhythmia during inpatient monitoring Continue to monitor renal and hepatic function, keep euvolemic Metabolic workup should include hgbA1c, fasting lipids, homocysteine, TSH, D Dimer, RPR, urinalysis Continue antiplatelt and statin indefinitely if tolerated Ok from neurology perspective for VTE prophylaxis PT/OT/SLT to eval and treat Recommend evak for MIHAI and consider outpatient polysomnography Consider obtain EEG Utilize benzodiazepines emergently for any breakthrough clinical seizure like activity No driving per [place] state Law following episode of loss of consciousness Telehealth Consultation Telehealth Information Telehealth Information: I performed this visit using a real-time telehealth connection between my location and the patients location ([facility]). After connecting through interactive tele-video, patient was identified by name and date of and/or wristband check.Patient (or authorized healthcare rental sales representative) was informed that this was a telemedicine visit and it was being conducted confidentially over secure lines. My office door was closed and no one else was present in the room with me.Patient (or authorized healthcare rental sales representative) provided consent to proceed with the visit, expressed an understanding of privacy and security of the telemedicine visit, and gave permission to have a hospital rental sales representative in the room in order to assist with the visit and to conduct portions of the visit, as needed. I informed the patient (or authorized healthcare rental sales representative) that I reviewed their record and presented the opportunity for them to ask any questions regarding the visit today. The patient agreed to participate. History of Present Illness Reason for Consultation: Syncope Requesting Physician: Dr. Farmer Attending Physician: Nora Farmer MD History of Present Illness 73yo right handed female with significant cardiovascular/peripheral vascular and cerebrovascular risk factors presented after reported episode of syncope. Reportedly occurred while trying to get OOB yesterday in AM. Reportedly felt as if "my legs gave out on me". She does confirm "blacking out" but significantly reports blacking out on the floor not as if the syncope occurred prior to the fall. She denies visual auditory gustatory olfactory or gastrointestinal sensation leading up to the event. She describes being able to pull herself up off of the floor with the sofa. She notably has suffered recent mechanical fall as well as she states she fell Wednesday tripping over her dog and she landed on her knee. No reported head trauma at that time. Yesterday she cannot recall hitting her head. She has undergone stroke imaging upon arrival as she was seen initially as a telestroke alert. Fortunately CT brain without contrast reveals no overt evidence of hemorrhage. CT angiographic studies of head and neck depict no overt evidence of large vessel occlusion or significant/flow limiting stenosi s. MRI brain has been performed as well revealing no evidence of acute ischemic stroke or other acute intracranial pathology. I have performed televideo consultation. She is alert & oriented; able to answer all questions appropriately, name objects on televideo monitor, repeat phrases and perform complex/embedded commands without deficit. Neurological exam is non lateralizing/nonfocal in terms of motor strength and coordination; noting limited BLE motor strength appreciated. Allergies Allergy/AdvReac Type Severity Reaction Status Date / Time adhesive Allergy Intermediate RASH Verified 01/27/22 18:41 Quinolones Allergy Intermediate LEVAQUIN Verified 01/27/22 18:41 codeine AdvReac Severe "BECAME Verified 01/27/22 18:41 ADDICTED TO MED" PREFERS NOT TO TAKE IF POSSIBLE. morphine AdvReac Severe ADDICTION-PREFERS Verified 01/27/22 18:41 NOT TO TAKE IF POSSIBLE. linagliptin AdvReac Mild hypoglycemi Verified 01/27/22 18:41 a Home Medications Medication Instructions Recorded Confirmed Type atenolol 25 mg tablet 25 mg PO QAM 10/09/18 05/16/24 History azelastine 137 mcg (0.1 %) nasal 2 spray intranasal BID 10/09/18 05/16/24 History spray calcium carbonate 500 mg PO 5XD PRN Gi Upset 10/09/18 05/16/24 History cholecalciferol (vitamin D3) 1,250 50,000 unit PO WK 10/09/18 05/16/24 History mcg (50,000 unit) tablet clotrimazole 10 mg tyrell 10 mg mucous membrane 5XD PRN 10/09/18 05/16/24 History THRUSH furosemide 20 mg tablet 20 mg PO DAILY 10/09/18 05/16/24 History gabapentin 300 mg capsule 300 mg PO USEASDIRECTD 10/09/18 05/16/24 History ipratropium bromide 0.02 % 2.5 ml continuous nebulization Q4H 10/09/18 05/16/24 History solution for inhalation PRN Shortness Of Breath Or Wheezing levalbuterol HCl 1.25 mg/3 mL 1.25 mg inhalation QID PRN 10/09/18 05/16/24 History solution for nebulization Shortness Of Breath Or Wheezing levocetirizine 5 mg tablet 5 mg PO PM 10/09/18 05/16/24 History levothyroxine 75 mcg tablet 75 mcg PO QAM 10/09/18 05/16/24 History lisinopril 10 mg tablet 10 mg PO DAILY 10/09/18 05/16/24 History montelukast 10 mg tablet 10 mg PO HS 10/09/18 05/16/24 History nitroglycerin 0.4 mg sublingual 0.4 mg sublingual UD PRN Chest Pain 10/09/18 05/16/24 History tablet (Nitrostat) pantoprazole 40 mg tablet,delayed 40 mg PO QAM 10/09/18 05/16/24 History release paroxetine HCl 40 mg tablet 40 mg PO QAM 10/09/18 05/16/24 History potassium chloride 10 mEq 10 meq PO BIDM 10/09/18 05/16/24 History tablet,extended release(part/cryst) ropinirole 0.25 mg tablet 0.25 mg PO HS 10/09/18 05/16/24 History aspirin 81 mg capsule 81 mg PO QAM 01/27/22 05/16/24 History benzonatate 100 mg capsule 100 mg PO BID PRN Cough 01/27/22 05/16/24 History guaifenesin 600 mg tablet, 600 mg PO BID PRN Cough 01/27/22 05/16/24 History extended release 12 hr (Mucinex) albuterol sulfate 90 mcg/actuation 2 puff inhalation QID PRN 05/16/24 05/16/24 History aerosol inhaler SOB/Wheezing alendronate 70 mg tablet 70 mg PO QAM 05/16/24 05/16/24 History atorvastatin 40 mg tablet 40 mg PO HS 05/16/24 05/16/24 History fluticasone fur. 200 mcg-umeclid 1 inh inhalation DAILY 05/16/24 05/16/24 History 62.5 mcg-vilant 25 mcg inhalat.powder (Trelegy Ellipta) lidocaine 5 % topical patch 1 patch topical DAILY PRN Pain 05/16/24 05/16/24 History (Lidoderm) linagliptin 5 mg tablet (Tradjenta) 5 mg PO QAM 05/16/24 05/16/24 History Patient History Medical History (Updated 05/16/24 @ 16:54 by Judith Monroe PA-C) COPD (chronic obstructive pulmonary disease) Diabetes Social History Smoking Status: Current every day smoker Tobacco Type: Cigarettes Second Hand Exposure: Yes; Do You Dip or Chew Tobacco: No; Tobacco Cessation Education Requested by Patient: No Hx Alcohol Use: No Hx Substance Use: No Preferred Language: [place] Communication Ability: Effective Party Plan Demonstrator Required: No Beliefs That Will Affect Care: None Current Living Situation: Alone Other Information That Helps Us Care for You: No Feels Safe at Home: Yes Safety Concerns: Feels Safe At This Time Assistive Devices: Denture - Upper, Denture - Lower, Glasses and Oxygen - at Night Physical Exam Neurological Examination: Mental Status: Awake and alert. Oriented to person, place, and time. Fluency naming repetition and comprehension appear grossly intact. Affect remains appropriate. CN testing: I: Denies changes in ability to smell II:Reports no changes in visual acuity III/IV/: No evidence of gaze preference, hippus, nystagmus or roving eye movements V: Facial sensation reportedly grossly intact to light touch bilaterally VII: Facial movements appear without evidence of asymmetry VIII: Hearing appears grossly intact to loud voice bilaterally IX/X: Palate appears to elevate symmetrically XI: Shoulder shrug appears symmetric/ grossly intact bilaterally XII: Tongue protrudes midline without evidence of biting Motor exam: Strength appears grossly intact/symmetric in bilateral upper extremities Motor strength appears limited BLE Sensory: Sensation is difficult to reliably assess Coordination: Finger to nose and heel to sanchez were intact. No apparent evidence of dysmetria or dysdiadochokinesia Reflexes: Deferred Gait: Deferred Results & Data Vital Signs (Past 12 Hours) Vital Signs Temp Pulse Pulse Resp BP Pulse Ox O2 Del Method 05/17/24 08:09 37.5 C 86 20 92 Nasal Cannula 05/17/24 07:56 75 18 85 L Room Air 05/17/24 07:15 81 05/17/24 03:55 84 16 92 Room Air 05/17/24 02:57 36.8 C 82 20 121/76 92 Room Air 05/17/24 01:33 67 05/17/24 00:05 84 17 98 Room Air 05/16/24 23:17 37.0 C 82 20 123/60 92 Room Air 05/16/24 21:24 87 16 92 Room Air O2 Flow Rate 05/17/24 08:09 2 05/17/24 07:56 05/17/24 07:15 05/17/24 03:55 05/17/24 02:57 05/17/24 01:33 05/17/24 00:05 05/16/24 23:17 05/16/24 21:24 Laboratory Results Abnormal lab results 05/16/24 05/16/24 05/16/24 Range/Units 08:35 09:03 16:21 WBC 13.85 H (4.8-10.8) K/ul RBC (4.20-5.40) M/uL RDW Std Deviation 47.9 H (36.4-46.3) fL Neut # (Auto) 8.54 H (1.40-6.50) K/uL [place] # (Auto) 1.45 H (0.11-0.59) K/uL Immature Gran # (Auto) 0.24 H (0.01-0.20) K/uL POC Anion Gap 14.0 L (16-25) mmol/L Creatinine 1.31 H (0.6-1.2) mg/dl Glucose 133 H (70-99(Fasting)) mg/dl POC Glucose (70-99) mg/dl POC Glucose (other) 129 H (70-99) mg/dl Hemoglobin A1c (4.5-5.6) % Synovial WBC (Auto) 7106 H (0-200) /ul 05/16/24 05/16/24 05/17/24 Range/Units 17:24 20:01 06:21 WBC 11.57 H (4.8-10.8) K/ul RBC 3.94 L (4.20-5.40) M/uL RDW Std Deviation (36.4-46.3) fL Neut # (Auto) (1.40-6.50) K/uL [place] # (Auto) (0.11-0.59) K/uL Immature Gran # (Auto) (0.01-0.20) K/uL POC Anion Gap (16-25) mmol/L Creatinine 1.43 H (0.6-1.2) mg/dl Glucose 111 H (70-99(Fasting)) mg/dl POC Glucose 106 H 110 H (70-99) mg/dl POC Glucose (other) (70-99) mg/dl Hemoglobin A1c 6.5 H (4.5-5.6) % Synovial WBC (Auto) (0-200) /ul 05/17/24 Range/Units 08:23 WBC (4.8-10.8) K/ul RBC (4.20-5.40) M/uL RDW Std Deviation (36.4-46.3) fL Neut # (Auto) (1.40-6.50) K/uL [place] # (Auto) (0.11-0.59) K/uL Immature Gran # (Auto) (0.01-0.20) K/uL POC Anion Gap (16-25) mmol/L Creatinine (0.6-1.2) mg/dl Glucose (70-99(Fasting)) mg/dl POC Glucose 140 H (70-99) mg/dl POC Glucose (other) (70-99) mg/dl Hemoglobin A1c (4.5-5.6) % Synovial WBC (Auto) (0-200) /ul Diagnostic Findings Chest X-Ray 05/16/24 08:55 XR chest 1V portable HISTORY: 73 years-old Female neuro deficit, acute stroke suspected COMPARISON: 03/23/2023 TECHNIQUE: AP view the chest FINDINGS: Cardiomediastinal and hilar silhouettes are within normal limits. Atherosclerosis of the aorta. No pneumothorax, pleural effusion or airspace consolidation. The bones appear grossly intact. Left-sided rotator cuff calcific tendinosis. Healed chronic left-sided rib fractures. IMPRESSION: No acute process. ACT 112: Negative or not required by law. The above report was generated using voice recognition software. It may contain grammatical, syntax or spelling errors. Electronically signed by: Negro Rodarte M.D. 05/16/2024 9:23 AM Foot X-Ray 05/16/24 08:55 XR foot LT min 3V routine HISTORY: 73 years-old Female fall, lateral pain acute pain of the left foot status post fall COMPARISON: 06/07/2019 TECHNIQUE: 3 views of the left foot FINDINGS: Demineralized appearance of the bones with mostly mild multifocal osteoarthri tis. No acute fracture, dislocation or osseous erosion. Small calcaneal enthesophytes. Os peroneum. Possible foreign body within the plantar and lateral tissues, 2 mm on the oblique and lateral views. IMPRESSION: 1. No acute fracture or dislocation. 2. Possible punctate foreign body. ACT 112: Negative or not required by law. The above report was generated using voice recognition software. It may contain grammatical, syntax or spelling errors. Electronically signed by: Negro Rodarte M.D. 05/16/2024 9:[address] 05/16/24 08:55 CT head/brain wo con CLINICAL HISTORY: 73 years-old Female with neuro deficit, acute stroke suspected. Acute stroke like symptoms TECHNIQUE: Multiple axial CT images of the head were obtained without contrast. A dose lowering technique was utilized adhering to the principles of ALARA. COMPARISON: CTA head of same day, head CT 10/09/2018 FINDINGS: No acute intracranial hemorrhage, midline shift, intracranial mass, hydrocephalus, territorial ischemia or abnormal extra-axial collection. Involutional changes with suggestion of chronic microvascular ischemic disease. Cerebral vascular calcifications. The calvarium is intact. Small left mastoid effusion. The right mastoid air cells are clear. Prior partial ethmoidectomy. Mild mucosal thickening with small air-fluid level of the left maxillary sinus. Prior bilateral lens repair. IMPRESSION: No acute intracranial abnormality. ACT 112: Negative or not required by law. The above report was generated using voice recognition software. It may contain grammatical, syntax or spelling errors. Electronically signed by: Negro Rodarte M.D. 05/16/2024 10:05 AM Head CTA 05/16/24 08:55 CT ANGIOGRAM OF THE BRAIN CLINICAL HISTORY: Neurological deficit. Stroke like symptoms. COMPARISON STUDY: Unenhanced CT of the brain performed concurrently on 05/16/2024. MR angiography of the brain dated 09/16/2013. TECHNIQUE: Following the IV administration of 120 cc of Optiray 320, CT angiogram of the brain was performed from the skull base to the vertex. Images are reviewed in the axial, sagittal, and coronal planes. 3-D MIPS images are created and assessed. IV contrast was administered without complication. A dose lowering technique was utilized adhering to the principles of ALARA. FINDINGS: Brain parenchyma: There is age-related involutional change noting minimal microangiopathic disease. There is no evidence of hemorrhage, mass effect, or acute territorial ischemia noting angiographic phase technique. There is no evidence of enhancing mass lesion on the angiogram phase images. No extra-axial fluid collection is seen. Senior-white matter differentiation is preserved. Ventricles, sulci, and cisterns: Prominent secondary to involutional change. CT angiogram of the brain: There is atherosclerotic calcification of the cavernous carotid arteries. The internal carotid arteries are widely patent, as are the anterior and middle cerebral arteries. The vertebrobasilar system and posterior cerebral arteries are widely patent. The vertebral arteries are codominant. There is a right posterior communicating artery. There is no aneurysm, high-grade stenosis, or focal vessel cutoff identified throughout the intracranial circulation. Dural sinuses: Clear as visualized. Orbits: The bony orbits are intact. The orbital contents are normal as visualized noting bilateral ocular lens implants. Sinuses and mastoids: There is evidence of previous paranasal sinus surgery. There is mild mucosal thickening in the left maxillary antrum. Trace mucosal thickening is seen within the sphenoid sinuses, frontal sinuses, and the ethmoid cavity. There are small mastoid effusions, left larger than right. Calvarium: Unremarkable. IMPRESSION: 1. There is no evidence of hemorrhage, mass effect, or acute territorial ischemia noting angiographic phase technique. 2. Unremarkable CT angiogram of the brain. ACT 112: Negative or not required by law. Electronically signed by: Rogelio Nugent M.D. 05/16/2024 9:50 AM Knee X-Ray 05/16/24 08:55 RIGHT KNEE 3 VIEWS CLINICAL HISTORY: Fall. Right knee pain. FINDINGS: AP, crosstable lateral, and sunrise views of the right knee are compared to study dated 07/25/2009. The skeletal structures are osteopenic. No fracture is seen. The joint spaces are maintained. There are tiny marginal osteophytes and patellar enthesophytes. A joint effusion is noted. The overlying soft tissues are normal as imaged. A calcified fabella is observed. IMPRESSION: Joint effusion with no acute bony abnormality identified. Electronically signed by: Rogelio Nugent M.D. 05/16/2024 10:32 AM Neck CTA 05/16/24 08:55 CT angio neck with con CLINICAL HISTORY: 73 years-old Female with neuro deficit, acute stroke suspected. Acute stroke symptoms COMPARISON STUDY: CTA of head of same day TECHNIQUE: Following the IV administration of 1 20 mL of Optiray, CT angiogram of the neck was performed from the aortic arch to the skull base. Images are reviewed in the axial, sagittal, and coronal planes. 3-D MIPS images are created and assessed. IV contrast was administered without complication. All measurements were calculated based on NASCET criteria. A dose lowering techniqu e was utilized adhering to the principles of ALARA. CT DOSE: 1053.29 mGy.cm FINDINGS: Moderate atherosclerosis of the thoracic aortic arch. Patent common and internal carotid arteries without significant atherosclerosis. The vertebral arteries are codominant and widely patent. Mild mucosal thickening of the paranasal sinuses. Small left mastoid effusion. Multilevel degenerative changes of the cervical spine. Pulmonary emphysema. The lung apices appear generally clear. No acute fracture identified. IMPRESSION:Unremarkable CTA of the neck. ACT 112: Negative or not required by law. The above report was generated using voice recognition software. It may contain grammatical, syntax or spelling errors. Electronically signed by: Negro Rodarte M.D. 05/16/2024 10:07 AM Duplex Scan Lower Extremity Artery 05/16/24 08:57 US arterial duplex LE RT CLINICAL HISTORY: leg pain, weakness, cool, diminished pulse TECHNIQUE: Real-time grayscale and color and spectral Doppler ultrasound imaging of the right lower extremity arteries was performed. Measurements calculated based on NASCET criteria. COMPARISON: None available at the time of this dictation. FINDINGS/IMPRESSION: No elevated velocities are seen to suggest hemodynamically significant stenosis. Triphasic waveforms are seen to the level of the femoral artery with biphasic w aveforms at the popliteal artery and below. ACT 112: Negative or not required by law. Electronically signed by: To Barney M.D. 05/16/2024 10:58 AM Brain MRI 05/16/24 12:34 MR brain wo/w con CLINICAL HISTORY: Stroke rule-out TECHNIQUE: Multiplanar and multisequence MR images of the brain were obtained prior to and following administration of gadolinium contrast. Comparison: Comparison is made to MRI brain 09/16/[address] head 05/16/2024 FINDINGS: No abnormal restricted diffusion is identified. The white matter is unremarkable. The ventricular system is normal in appearance. No mass or abnormal enhancement is seen. There is no mass effect or midline shift. There is no evidence of acute intraparenchymal hemorrhage. No extra axial fluid horacio ections are seen. The corpus callosum, pituitary gland, and cerebellar tonsils appear grossly unremarkable. Flow voids of the major intracranial arterial vessels are identified. The imaged portions of the paranasal sinuses, mastoid air cells, and orbits are unremarkable. Incidental note is made of bilateral lens replacements. IMPRESSION: No acute abnormality and in particular no evidence of acute infarct. ACT 112: Negative or not required by law. Electronically signed by: To Barney M.D. 05/16/2024 2:33 PM Aorta w/Runoff CTA 05/16/24 12:37 CT ang AA runof w inc nestor philip CLINICAL HISTORY: RLE cold to touch TECHNIQUE: Multidetector row helical CT of the abdomen, pelvis and bilateral lower extremities down through the feet was performed, following intravenous administration of iodinated contrast. No oral contrast was administered. Automated dose lowering techniques and/or adjustment according to patient size were utilized for this exam. Coronal and sagittal reformations were obtained. MIP and 3D volume rendered reconstructions were obtained. CT DOSE: 1859.53 mGy.cm Comparison: Comparison is made to right lower extremity Doppler ultrasound 05/16/2024 FINDINGS: Lower chest: A few blebs are noted in the lower lungs. Liver: Unremarkable. No focal lesions are seen. Gallbladder and biliary tree: Cholelithiasis is seen without evidence of cholecystitis. No intra- or extrahepatic biliary ductal dilation. Pancreas: Unremarkable, no focal lesions. Spleen: Unremarkable. Adrenals: Unremarkable. Kidneys and ureters: Renal cysts are seen. Bladder: Unremarkable. Reproductive organs: Unremarkable. Bowel: Diverticulosis is seen without evidence of diverticulitis. There is a small hiatal hernia. Lymph nodes Retroperitoneal: Hugh hepatis nodes measure up to 12 mm in diameter. Pelvic: Unremarkable. Mesenteric: Unremarkable. Peritoneum: Normal. Abdominal wall: Unremarkable. Bones: Degenerative changes in the visualized spine. CT angiogram: The abdominal aortic contours appear intact without evidence of aneurysmal dilatation and/or dissection. Scattered atherosclerotic calcifications of the abdominal aorta and its major branches. The origins of the celiac axis, superior mesenteric, inferior mesenteric and bilateral renal arteries are patent. The right common iliac artery is patent. The right internal iliac artery is patent. The right external iliac artery is patent. The right common femoral artery is patent. The right deep femoral artery is patent. The right superficial femoral artery is patent. The right popliteal artery is patent. Three-vessel runoff is identified in the right lower extremity. The right anterior tibial is patent. The posterior tibial artery is patent. The right peroneal artery is patent. Three-vessel runoff is identified down to the level of the right foot. The left common iliac artery is patent. The left internal iliac artery is patent. The left external iliac artery is patent. The left common femoral artery is patent. The left deep femoral artery is patent. The left superficial femoral artery is patent. The left popliteal artery is patent. Three-vessel runoff is identified in the left lower extremity. The left anterior tibial is patent. The left posterior tibial artery is patent. The left peroneal artery is patent. Three-vessel runoff is identified down to the level of the left foot. IMPRESSION: 1. No evidence of hemodynamically significant stenosis, extravasation or dissection. 2. Nonspecific hugh hepatis lymph nodes which may be reactive. 3. Additional findings as above. ACT 112: Negative or not required by law. Electronically signed by: To Barney M.D. 05/16/2024 2:19 PM Ankle X-Ray 05/16/24 17:09 XR ankle LT min 3V routine CLINICAL HISTORY: lt ankle pain TECHNIQUE: 3 views of the left ankle were obtained. Comparison: Comparison is made to foot radiographs 05/16/2024 FINDINGS: No fractures are present. The joint spaces are well preserved. No soft tissue abnormality is seen. Os perineum incidentally noted. The previously noted plantar radiodensity is not well seen on this exam. IMPRESSION: No evidence of acute bony injury. ACT 112: Negative or not required by law. Electronically signed by: To Barney M.D. 05/16/2024 7:04 PM Medications Administered Home Medications Medication Instructions Recorded Confirmed Last Taken atenolol 25 mg tablet 25 mg PO QAM 10/09/18 05/16/24 Unknown azelastine 137 mcg (0.1 %) nasal 2 spray intranasal BID 10/09/18 05/16/24 Unknown spray calcium carbonate 500 mg PO 5XD PRN Gi Upset 10/09/18 05/16/24 Unknown cholecalciferol (vitamin D3) 1,250 50,000 unit PO WK 10/09/18 05/16/24 Unknown mcg (50,000 unit) tablet clotrimazole 10 mg tyrell 10 mg mucous membrane 5XD PRN 10/09/18 05/16/24 Unknown THRUSH furosemide 20 mg tablet 20 mg PO DAILY 10/09/18 05/16/24 Unknown gabapentin 300 mg capsule 300 mg PO USEASDIRECTD 10/09/18 05/16/24 Unknown ipratropium bromide 0.02 % 2.5 ml continuous nebulization Q4H 10/09/18 05/16/24 Unknown solution for inhalation PRN Shortness Of Breath Or Wheezing levalbuterol HCl 1.25 mg/3 mL 1.25 mg inhalation QID PRN 10/09/18 05/16/24 Unknown solution for nebulization Shortness Of Breath Or Wheezing levocetirizine 5 mg tablet 5 mg PO PM 10/09/18 05/16/24 Unknown levothyroxine 75 mcg tablet 75 mcg PO QAM 10/09/18 05/16/24 Unknown lisinopril 10 mg tablet 10 mg PO DAILY 10/09/18 05/16/24 Unknown montelukast 10 mg tablet 10 mg PO HS 10/09/18 05/16/24 Unknown nitroglycerin 0.4 mg sublingual 0.4 mg sublingual UD PRN Chest Pain 10/09/18 05/16/24 Unknown tablet (Nitrostat) pantoprazole 40 mg tablet,delayed 40 mg PO QAM 10/09/18 05/16/24 Unknown release paroxetine HCl 40 mg tablet 40 mg PO QAM 10/09/18 05/16/24 Unknown potassium chloride 10 mEq 10 meq PO BIDM 10/09/18 05/16/24 Unknown tablet,extended release(part/cryst) ropinirole 0.25 mg tablet 0.25 mg PO HS 10/09/18 05/16/24 Unknown aspirin 81 mg capsule 81 mg PO QAM 01/27/22 05/16/24 Unknown benzonatate 100 mg capsule 100 mg PO BID PRN Cough 01/27/22 05/16/24 Unknown guaifenesin 600 mg tablet, 600 mg PO BID PRN Cough 01/27/22 05/16/24 Unknown extended release 12 hr (Mucinex) albuterol sulfate 90 mcg/actuation 2 puff inhalation QID PRN 05/16/24 05/16/24 Unknown aerosol inhaler SOB/Wheezing alendronate 70 mg tablet 70 mg PO QAM 05/16/24 05/16/24 Unknown atorvastatin 40 mg tablet 40 mg PO HS 05/16/24 05/16/24 Unknown fluticasone fur. 200 mcg-umeclid 1 inh inhalation DAILY 05/16/24 05/16/24 Unknown 62.5 mcg-vilant 25 mcg inhalat.powder (Trelegy Ellipta) lidocaine 5 % topical patch 1 patch topical DAILY PRN Pain 05/16/24 05/16/24 Unknown (Lidoderm) linagliptin 5 mg tablet (Tradjenta) 5 mg PO QAM 05/16/24 05/16/24 Unknown Active Medications Generic Name Dose Route Start Last Admin Trade Name Freq PRN Reason Stop Dose Admin Acetaminophen 650 mg 05/16/24 15:45 05/17/24 06:12 Acetaminophen 325 Mg Tab PO 06/15/24 15:44 650 mg Q4H PRN Administration pain/fever Albuterol 3 ml 05/16/24 19:00 05/17/24 07:44 Albut/Ipratrop 3mg/0.5mg Neb 3 Ml Vial NEB 06/15/24 18:59 3 ml Q4R CHRISTINA Administration Protocol Aspirin 81 mg 05/17/24 09:00 05/17/24 08:52 Aspirin 81 Mg Ectab PO 06/16/24 08:59 81 mg QAM [facility]STINA Administration Atenolol 25 mg 05/17/24 09:00 05/17/24 08:52 Atenolol 25 Mg Tablet PO 06/16/24 08:59 25 mg QAM CH[facility]STINA Administration Atorvastatin Calcium 40 mg 05/16/24 21:00 05/16/24 21:04 Atorvastatin 40 Mg Tab PO 06/15/24 20:59 40 mg HS CHRISTINA Administration Azelastine HCl 2 sprays 05/16/24 21:00 05/17/24 08:51 Azelastine Hcl 0.1% Nasal 200 Sprays/27,400 Mcg Btl NA 06/15/24 20:59 2 sprays BID CHRISTINA Administration Cetirizine HCl 10 mg 05/16/24 21:00 05/16/24 21:04 Cetirizine Hcl 10 Mg Tablet PO 06/15/24 20:59 10 mg HS CHRISTINA Administration Fluticasone Furoate 1 puffs 05/17/24 09:00 05/17/24 08:54 Fluticasone Furoate 200mcg 14 Puffs/Inhaler INH 06/16/24 08:59 1 puffs DAILY CHRISTINA Administration Furosemide 20 mg 05/17/24 09:00 05/17/24 08:53 Furosemide 20 Mg Tab PO 06/16/24 08:59 20 mg DAILY CH[facility]STINA Administration Gabapentin 300 mg 05/16/24 16:00 05/16/24 16:46 Gabapentin 300 Mg Cap PO 06/15/24 15:59 300 mg BID@0900,1400 CH[facility]STINA Administration Gabapentin 300 mg 05/16/24 21:00 05/16/24 21:04 Gabapentin 300 Mg Cap PO 06/15/24 20:59 300 mg HS CHRISTINA Administration Heparin Sodium (Porcine) 5,000 units 05/16/24 21:00 05/17/24 08:50 Heparin Sod 5,000 Unit/0.5 Ml Vial SQ 06/15/24 20:59 5,000 units Q12 CHRISTINA Administration Ceftriaxone Sodium 2,000 mg in 50 mls @ 100 mls/hr 05/16/24 16:00 05/16/24 17:24 Rocephin IV 05/23/24 15:59 Infused Q24H [facility]STINA Infusion Insulin Aspart 0 units 05/16/24 16:30 05/17/24 09:02 Insulin Aspart Per Unit Charge SC 06/15/24 16:29 4 units ACHS CHRISTINA Administration Levothyroxine Sodium 75 mcg 05/17/24 06:30 05/17/24 06:11 Levothyroxine Sodium 75 Mcg Tablet PO 06/16/24 06:29 75 mcg DAILYBB CHRISTINA Administration Montelukast Sodium 10 mg 05/16/24 21:00 05/16/24 21:03 Montelukast Sodium 10 Mg Tablet PO 06/15/24 20:59 10 mg HS CHRISTINA Administration Potassium Chloride 10 meq 05/16/24 17:00 05/17/24 08:51 Potassium Chloride 10 Meq Tabcr PO 06/15/24 16:59 10 meq BIDM CRHISTINA Administration Ropinirole HCl 0.25 mg 05/16/24 21:00 05/16/24 21:04 Ropinirole Hcl 0.25 Mg Tablet PO 06/15/24 20:59 0.25 mg HS CHRISTINA Administration Umeclidinium/Vilanterol 1 puffs 05/17/24 09:00 05/17/24 08:53 Umeclidinium/Vilanterol 62.5/25mcg 7 Puffs/Inhaler INH 06/16/24 08:59 1 puffs DAILY CHRISTINA Administration
--- NOTE | 2024-05-17 11:14 | CT Scan Report ---
CT knee RT w con CLINICAL HISTORY: to rule out fracture; hemarthrosis TECHNIQUE: Multidetector row helical CT of the right knee was performed without intravenous contrast. Coronal and sagittal reformations were obtained. Automated dose lowering techniques and/or adjustmen t according to patient size were utilized for this examination. Comparison: None available at the time of this dictation. FINDINGS: There is likely a minimally impacted fracture of the lateral tibial plateau with approximately 2 mm d isplacement best seen on coronal reformatted images. The joint spaces are maintained. There is suprap atellar effusion which appears greater than simple fluid density. The soft tissues are unremarkable. IMPRESSION: Likely impaction type fracture of the lateral tibial plateau with associated hemarthrosis. ACT 112: Negative or not required by law. Electronically signed by: To Barney M.D. 05/17/2024 11:12 AM
[2024-05-17] MEDS: PANTOprazole 40 MG TAB PO SCH (11:15)
[2024-05-17] MEDS: BENZONATATE 100 MG CAPSULE PO PRN (13:09)
--- NOTE | 2024-05-17 20:28 | Orthopedic Progress Note ---
Date of Service May 17, 2024 Assessment & Plan (1) Hemarthrosis, right knee: Plan: IMPRESSION: R knee effusion secondarily to traumatic lateral tibial plateau fracture PLAN: Obtained CT R knee to r/o fracture, found to have lateral tibial plateau fracture, impaction NWB RLE, place in ROM brace blocked 0-30 deg PT, may work on gentle ROM of the knee OT Check labs Continue pain control RICE Continue care per primary service. Will continue to follow. Present on Admission?: Yes (2) Left ankle pain: Plan: IMPRESSION: Left foot and ankle pain secondarily to sprain PLAN: Placed in High Tide Cam boot. WBAT in Boot RICE, may remove boot to ice PT/OT D/C planning Continue care per primary service Will continue to follow. Admission and Anticipated Discharge Date Admission Date: May 16, 2024 Subjective Patient c/o Why me?, Right knee and left foot and ankle pain. Physical Exam Physical Exam: BLE: Sensation to light touch unchanged. BCR < 2 sec. Able to wiggle toes bilaterally, right ankle. Able to preform straight leg raise. RLE: + effusion. + TTP medial and lateral joint line. Nidia stable, Stable varus and valgus stress 5 & 30 deg. ROM 3-45 deg. - Hitesh's. LLE: + lateral ankle & foot swelling and bruising. diffuse TTP ankle and foot. Calf soft and non-tender. 2 abrasions over anterior lower leg, no evidence of infection. Results & Data Vital Signs (Past 12 Hours) Vital Signs Temp Pulse Pulse Pulse Resp BP Pulse Ox 05/17/24 20:02 36.8 C 83 20 112/75 95 05/17/24 16:27 36.5 C 81 18 106/64 93 05/17/24 15:36 82 16 87 L 05/17/24 14:55 91 H 05/17/24 13:20 05/17/24 11:50 37.1 C 82 18 119/69 94 05/17/24 11:37 76 17 96 05/17/24 09:33 Pulse Ox Pulse Ox Pulse Ox O2 Del Method O2 Flow Rate O2 Flow Rate O2 Flow Rate 05/17/24 20:02 Room Air 1 05/17/24 16:27 Nasal Cannula 1 05/17/24 15:36 Room Air 05/17/24 14:55 05/17/24 13:20 90 90 90 2 2 05/17/24 11:50 Nasal Cannula 2 05/17/24 11:37 Nasal Cannula 2 05/17/24 09:33 Nasal Cannula 2 O2 Flow Rate 05/17/24 20:02 05/17/24 16:27 05/17/24 15:36 05/17/24 14:55 05/17/24 13:20 2 05/17/24 11:50 05/17/24 11:37 05/17/24 09:33 Laboratory Results Laboratory Results WBC 11.57 K/ul (4.8-10.8) H 05/17/24 06:21 RBC 3.94 M/uL (4.20-5.40) L 05/17/24 06:21 Hgb 12.4 g/dl (12.0-16.0) 05/17/24 06:21 POC Hgb 12.9 g/dl (12.0-16.0) 05/16/24 09:03 Hct 37.4 % (37.0-47.0) 05/17/24 06:21 POC Hct 38 % (37-47) 05/16/24 09:03 MCV 94.9 fL (80.0-100.0) 05/17/24 06:21 MCH 31.5 pg (25.0-34.0) 05/17/24 06:21 MCHC 33.2 g/dL (32.0-36.0) 05/17/24 06:21 RDW Std Deviation 46.2 fL (36.4-46.3) 05/17/24 06:21 RDW Coeff of Scar 13.2 % (11.5-14.5) 05/17/24 06:21 Plt Count 290 K/uL (130-400) 05/17/24 06:21 MPV 10.4 fL (9.4-12.4) 05/17/24 06:21 Immature Gran % (Auto) 1.7 % 05/16/24 08:35 Neut % (Auto) 61.7 % 05/16/24 08:35 Lymph % (Auto) 23.0 % 05/16/24 08:35 [place] % (Auto) 10.5 % 05/16/24 08:35 Eos % (Auto) 2.7 % 05/16/24 08:35 Baso % (Auto) 0.4 % 05/16/24 08:35 Neut # (Auto) 8.54 K/uL (1.40-6.50) H 05/16/24 08:35 Lymph # (Auto) 3.19 K/uL (1.20-3.40) 05/16/24 08:35 [place] # (Auto) 1.45 K/uL (0.11-0.59) H 05/16/24 08:35 Eos # (Auto) 0.37 K/uL (0.00-0.50) 05/16/24 08:35 Baso # (Auto) 0.06 K/uL (0.00-0.20) 05/16/24 08:35 Immature Gran # (Auto) 0.24 K/uL (0.01-0.20) H 05/16/24 08:35 PT 11.4 Seconds (9.0-12.0) 05/16/24 11:35 INR 1.1 (0.9-1.1) 05/16/24 11:35 APTT 27 Seconds (21-31) 05/16/24 11:35 PTT Ratio 1.0 05/16/24 11:35 POC Sodium 140 mmol/L (135-144) 05/16/24 09:03 Sodium 139 mmol/L (136-145) 05/17/24 06:21 POC Potassium 3.8 mmol/L (3.3-5.0) 05/16/24 09:03 Potassium 4.0 mmol/L (3.5-5.1) 05/17/24 06:21 POC Chloride 106 mmol/L (101-112) 05/16/24 09:03 Chloride 106 mmol/L (98-107) 05/17/24 06:21 Carbon Dioxide 27 mmol/L (21-32) 05/17/24 06:21 POC Total CO2 26 mmol/L (24-31) 05/16/24 09:03 Anion Gap 6 (3-11) 05/17/24 06:21 POC Anion Gap 14.0 mmol/L (16-25) L 05/16/24 09:03 POC BUN 16 mg/dl (7-18) 05/16/24 09:03 BUN 15 mg/dl (6-23) 05/17/24 06:21 Creatinine 1.43 mg/dl (0.6-1.2) H 05/17/24 06:21 POC Creatinine 1.3 mg/dl (0.6-1.3) 05/16/24 09:03 Est Cr Clr Drug Dosing 38.1 ml/min 05/17/24 06:21 Est GFR ( Amer) 42.3 ml/min 05/17/24 06:21 Est GFR (Non-Af Amer) 36.5 ml/min 05/17/24 06:21 BUN/Creatinine Ratio 10.5 (10-20) 05/17/24 06:21 Glucose 111 mg/dl (70-99(Fasting)) H 05/17/24 06:21 POC Glucose 96 mg/dl (70-99) 05/17/24 20:11 POC Glucose (other) 129 mg/dl (70-99) H 05/16/24 09:03 Estimat Average Glucose 140 mg/dl 05/17/24 06:21 Hemoglobin A1c 6.5 % (4.5-5.6) H 05/17/24 06:21 Calcium 9.0 mg/dl (8.6-10.3) 05/17/24 06:21 POC Ioniz Calcium Marko 1.15 mmol/l (1.12-1.32) 05/16/24 09:03 Phosphorus 3.2 mg/dl (2.5-4.9) 05/17/24 06:21 Magnesium 1.8 mg/dl (1.7-2.4) 05/17/24 06:21 Total Bilirubin 0.4 mg/dl (0.2-1.0) 05/16/24 08:35 AST 18 U/L (13-39) 05/16/24 08:35 ALT 14 U/L (7-52) 05/16/24 08:35 Alkaline Phosphatase 91 U/L (34-104) 05/16/24 08:35 Troponin I High Sens 5.1 pg/ml (0-14) 05/16/24 08:35 Total Protein 7.5 gm/dl (6.0-8.3) 05/16/24 08:35 Albumin 3.8 gm/dl (3.4-5.0) 05/16/24 08:35 Globulin 3.7 gm/dl (2.5-4.0) 05/16/24 08:35 Albumin/Globulin Ratio 1.0 (0.9-2) 05/16/24 08:35 Triglycerides 87 mg/dl (0-150) 05/17/24 06:21 Cholesterol 91 mg/dl (0-200) 05/17/24 06:21 LDL Cholesterol, Calc 41 mg/dl 05/17/24 06:21 VLDL Cholesterol, Calc 17 mg/dl (0-30) 05/17/24 06:21 HDL Cholesterol 33 mg/dl 05/17/24 06:21 Cholesterol/HDL Ratio 2.8 (0-5) 05/17/24 06:21 Fluid Comment 05/16/24 16:21 Synovial Source Right Knee 05/16/24 16:21 Synovial Color Red 05/16/24 16:21 Synovial Appearance Bloody 05/16/24 16:21 Synovial WBC (Auto) 7106 /ul (0-200) H 05/16/24 16:21 Synovial RBC (Auto) 4984656 /uL 05/16/24 16:21 Synovial Polynuclear % 65.7 % 05/16/24 16:21 Synovial Mononuclear % 34.3 % 05/16/24 16:21 Synovial Crystals 05/16/24 16:21 Nasal Screen MRSA (PCR) Negative (Negative) 05/16/24 12:30 Adenovirus (PCR) Not Detected (NotDetected) 05/16/24 09:17 B. pertussis DNA (PCR) Not Detected (NotDetected) 05/16/24 09:17 B.parapertussis DNA PCR Not Detected (NotDetected) 05/16/24 09:17 C. pneumoniae DNA (PCR) Not Detected (NotDetected) 05/16/24 09:17 Coronavirus OC43 (PCR) Not Detected (NotDetected) 05/16/24 09:17 Coronavirus HKU1 (PCR) Not Detected (NotDetected) 05/16/24 09:17 Coronavirus 229E (PCR) Not Detected (NotDetected) 05/16/24 09:17 SARS-CoV-2 (PCR) Not Detected (NotDetected) 05/16/24 09:17 Coronavirus NL63 (PCR) Not Detected (NotDetected) 05/16/24 09:17 Human Metapneumovir PCR Not Detected (NotDetected) 05/16/24 09:17 Influenza Type A (PCR) Not Detected (NotDetected) 05/16/24 09:17 Influenza Type B (PCR) Not Detected (NotDetected) 05/16/24 09:17 M. pneumoniae (PCR) Not Detected (NotDetected) 05/16/24 09:17 Parainfluenza 1 (PCR) Not Detected (NotDetected) 05/16/24 09:17 Parainfluenza 2 (PCR) Not Detected (NotDetected) 05/16/24 09:17 Parainfluenza 3 (PCR) Not Detected (NotDetected) 05/16/24 09:17 Parainfluenza 4 (PCR) Not Detected (NotDetected) 05/16/24 09:17 RSV (PCR) Not Detected (NotDetected) 05/16/24 09:17 Entero/Rhino (PCR) Not Detected (NotDetected) 05/16/24 09:17 [place] [address] / Director: Marina Mcintyre M.D. Clinical Laboratory Report Name: DEJA LACY Acct: [id number] Status: ADM [place] : 1950 [facility] [place]: 05/16/24 Age: 73 Sex: F Dis Date: Loc: [address]/Bed: N2802 Spec: [id number] Collected: 05/16/24 Received: 05/16/24-[address] Copy To: Chani Haley MD Source: Knee OV Order: Ordered: Aer/Magali Cult/Sm Comments: Comment synovial fluid RT knee Procedure Result Verified Site Gram Stain Final 05/16/24 Gram Stain Result Many WBCs Seen No Organisms Seen Aero/Magali Cult Preliminary 05/17/24-1231 No growth to date. Impressions Chest X-Ray 05/16/24 08:55 XR chest 1V portable HISTORY: 73 years-old Female neuro deficit, acute stroke suspected COMPARISON: 03/23/2023 TECHNIQUE: AP view the chest FINDINGS: Cardiomediastinal and hilar silhouettes are within normal limits. Atherosclerosis of the aorta. No pneumothorax, pleural effusion or airspace consolidation. The bones appear grossly intact. Left-sided rotator cuff calcific tendinosis. Healed chronic left-sided rib fractures. IMPRESSION: No acute process. ACT 112: Negative or not required by law. The above report was generated using voice recognition software. It may contain grammatical, syntax or spelling errors. Electronically signed by: Negro Rodarte M.D. 05/16/2024 9:23 AM Foot X-Ray 05/16/24 08:55 XR foot LT min 3V routine HISTORY: 73 years-old Female fall, lateral pain acute pain of the left foot status post fall COMPARISON: 06/07/2019 TECHNIQUE: 3 views of the left foot FINDINGS: Demineralized appearance of the bones with mostly mild multifocal osteoarthritis. No acute fracture, dislocation or osseous erosion. Small calcaneal enthesophytes. Os peroneum. Possible foreign body within the plantar and lateral tissues, 2 mm on the oblique and lateral views. IMPRESSION: 1. No acute fracture or dislocation. 2. Possible punctate foreign body. ACT 112: Negative or not required by law. The above report was generated using voice recognition software. It may contain grammatical, syntax or spelling errors. Electronically signed by: Negro Rodarte M.D. 05/16/2024 9:[address] 05/16/24 08:55 CT head/brain wo con CLINICAL HISTORY: 73 years-old Female with neuro deficit, acute stroke suspected. Acute stroke like symptoms TECHNIQUE: Multiple axial CT images of the head were obtained without contrast. A dose lowering technique was utilized adhering to the principles of ALARA. COMPARISON: CTA head of same day, head CT 10/09/2018 FINDINGS: No acute intracranial hemorrhage, midline shift, intracranial mass, hydrocephalus, territorial ischemia or abnormal extra-axial collection. Involutional changes with suggestion of chronic microvascular ischemic disease. Cerebral vascular calcifications. The calvarium is intact. Small left mastoid effusion. The right mastoid air cells are clear. Prior partial ethmoidectomy. Mild mucosal thickening with small air-fluid level of the left maxillary sinus. Prior bilateral lens repair. IMPRESSION: No acute intracranial abnormality. ACT 112: Negative or not required by law. The above report was generated using voice recognition software. It may contain grammatical, syntax or spelling errors. Electronically signed by: Negro Rodarte M.D. 05/16/2024 10:05 AM Head CTA 05/16/24 08:55 CT ANGIOGRAM OF THE BRAIN CLINICAL HISTORY: Neurological deficit. Stroke like symptoms. COMPARISON STUDY: Unenhanced CT of the brain performed concurrently on 05/16/2024. MR angiography of the brain dated 09/16/2013. TECHNIQUE: Following the IV administration of 120 cc of Optiray 320, CT angiogram of the brain was performed from the skull base to the vertex. Images are reviewed in the axial, sagittal, and coronal planes. 3-D MIPS images are created and assessed. IV contrast was administered without complication. A dose lowering technique was utilized adhering to the principles of ALARA. FINDINGS: Brain parenchyma: There is age-related involutional change noting minimal microangiopathic disease. There is no evidence of hemorrhage, mass effect, or acute territorial ischemia noting angiographic phase technique. There is no evidence of enhancing mass lesion on the angiogram phase images. No extra-axial fluid collection is seen. Senior-white matter differentiation is preserved. Ventricles, sulci, and cisterns: Prominent secondary to involutional change. CT angiogram of the brain: There is atherosclerotic calcification of the cavernous carotid arteries. The internal carotid arteries are widely patent, as are the anterior and middle cerebral arteries. The vertebrobasilar system and posterior cerebral arteries are widely patent. The vertebral arteries are codominant. There is a right posterior communicating artery. There is no an eurysm, high-grade stenosis, or focal vessel cutoff identified throughout the intracranial circulation. Dural sinuses: Clear as visualized. Orbits: The bony orbits are intact. The orbital contents are normal as visualized noting bilateral ocular lens implants. Sinuses and mastoids: There is evidence of previous paranasal sinus surgery. There is mild mucosal thickening in the left maxillary antrum. Trace mucosal thickening is seen within the sphenoid sinuses, frontal sinuses, and the ethmoid cavity. There are small mastoid effusions, left larger than right. Calvarium: Unremarkable. IMPRESSION: 1. There is no evidence of hemorrhage, mass effect, or acute territorial ischemia noting angiographic phase technique. 2. Unremarkable CT angiogram of the brain. ACT 112: Negative or not required by law. Electronically signed by: Rogelio Nugent M.D. 05/16/2024 9:50 AM Knee X-Ray 05/16/24 08:55 RIGHT KNEE 3 VIEWS CLINICAL HISTORY: Fall. Right knee pain. FINDINGS: AP, crosstable lateral, and sunrise views of the right knee are compared to study dated 07/25/2009. The skeletal structures are osteopenic. No fracture is seen. The joint spaces are maintained. There are tiny marginal osteophytes and patellar enthesophytes. A joint effusion is noted. The overlying soft tissues are normal as imaged. A calcified fabella is observed. IMPRESSION: Joint effusion with no acute bony abnormality identified. Electronically signed by: Rogelio Nugent M.D. 05/16/2024 10:32 AM Neck CTA 05/16/24 08:55 CT angio neck with con CLINICAL HISTORY: 73 years-old Female with neuro deficit, acute stroke suspected. Acute stroke symptoms COMPARISON STUDY: CTA of head of same day TECHNIQUE: Following the IV administration of 1 20 mL of Optiray, CT angiogram of the neck was performed from the aortic arch to the skull base. Images are reviewed in the axial, sagittal, and coronal planes. 3-D MIPS images are created and assessed. IV contrast was administered without complication. All measurements were calculated based on NASCET criteria. A dose lowering technique was utilized adhering to the principles of ALARA. CT DOSE: 1053.29 mGy.cm FINDINGS: Moderate atherosclerosis of the thoracic aortic arch. Patent common and internal carotid arteries without significant atherosclerosis. The vertebral arteries are codominant and widely patent. Mild mucosal thickening of the paranasal sinuses. Small left mastoid effusion. Multilevel degenerative changes of the cervical spine. Pulmonary emphysema. The lung apices appear generally clear. No acute fracture identified. IMPRESSION:Unremarkable CTA of the neck. ACT 112: Negative or not required by law. The above report was generated using voice recognition software. It may contain grammatical, syntax or spelling errors. Electronically signed by: Negro Rodarte M.D. 05/16/2024 10:07 AM Duplex Scan Lower Extremity Artery 05/16/24 08:57 US arterial duplex LE RT CLINICAL HISTORY: leg pain, weakness, cool, diminished pulse TECHNIQUE: Real-time grayscale and color and spectral Doppler ultrasound imaging of the right lower extremity arteries was performed. Measurements calculated based on NASCET criteria. COMPARISON: None available at the time of this dictation. FINDINGS/IMPRESSION: No elevated velocities are seen to suggest hemodynamically significant stenosis. Triphasic waveforms are seen to the level of the femoral artery with biphasic waveforms at the popliteal artery and below. ACT 112: Negative or not required by law. Electronically signed by: To Barney M.D. 05/16/2024 10:58 AM Brain MRI 05/16/24 12:34 MR brain wo/w con CLINICAL HISTORY: Stroke rule-out TECHNIQUE: Multiplanar and multisequence MR images of the brain were obtained prior to and following administration of gadolinium contrast. Comparison: Comparison is made to MRI brain 09/16/[address] head 05/16/2024 FINDINGS: No abnormal restricted diffusion is identified. The white matter is unremarkable. The ventricular system is normal in appearance. No mass or a bnormal enhancement is seen. There is no mass effect or midline shift. There is no evidence of acute intraparenchymal hemorrhage. No extra axial fluid collections are seen. The corpus callosum, pituitary gland, and cerebellar tonsils appear grossly unremarkable. Flow voids of the major intracranial arterial vessels are identified. The imaged portions of the paranasal sinuses, mastoid air cells, and orbits are unremarkable. Incidental note is made of bilateral lens replacements. IMPRESSION: No acute abnormality and in particular no evidence of acute infarct. ACT 112: Negative or not required by law. Electronically signed by: To Barney M.D. 05/16/2024 2:33 PM Aorta w/Runoff CTA 05/16/24 12:37 CT ang AA runof w inc nestor philip CLINICAL HISTORY: RLE cold to touch TECHNIQUE: Multidetector row helical CT of the abdomen, pelvis and bilateral lower extremities down through the feet was performed, following intravenous administration of iodinated contrast. No oral contrast was administered. Automated dose lowering techniques and/or adjustment according to patient size were utilized for this exam. Coronal and sagittal reformations were obtained. MIP and 3D volume rendered reconstructions were obtained. CT DOSE: 1859.53 mGy.cm Comparison: Comparison is made to right lower extremity Doppler ultrasound 05/16/2024 FINDINGS: Lower chest: A few blebs are noted in the lower lungs. Liver: Unremarkable. No focal lesions are seen. Gallbladder and biliary tree: Cholelithiasis is seen without evidence of cholecystitis. No intra- or extrahepatic biliary ductal dilation. Pancreas: Unremarkable, no focal lesions. Spleen: Unremarkable. Adrenals: Unremarkable. Kidneys and ureters: Renal cysts are seen. Bladder: Unremarkable. Reproductive organs: Unremarkable. Bowel: Diverticulosis is seen without evidence of diverticulitis. There is a small hiatal hernia. Lymph nodes Retroperitoneal: Hugh hepatis nodes measure up to 12 mm in diameter. Pelvic: Unremarkable. Mesenteric: Unremarkable. Peritoneum: Normal. Abdominal wall: Unremarkable. Bones: Degenerative changes in the visualized spine. CT angiogram: The abdominal aortic contours appear intact without evidence of aneurysmal dilatation and/or dissection. Scattered atherosclerotic calcifications of the abdominal aorta and its major branches. The origins of the celiac axis, superior mesenteric, inferior mesenteric and bilateral renal arteries are patent. The right common iliac artery is patent. The right internal iliac artery is patent. The right external iliac artery is patent. The right common femoral artery is patent. The right deep femoral artery is patent. The right superficial femoral artery is patent. The right popliteal artery is patent. Three-vessel runoff is identified in the right lower extremity. The right anterior tibial is patent. The posterior tibial artery is patent. The right peroneal artery is patent. Three-vessel runoff is identified down to the level of the right foot. The left common iliac artery is patent. The left internal iliac artery is patent. The left external iliac artery is patent. The left common femoral artery is patent. The left deep femoral artery is patent. The left superficial femoral artery is patent. The left popliteal artery is patent. Three-vessel runoff is identified in the left lower extremity. The left anterior tibial is patent. The left posterior tibial artery is patent. The left peroneal artery is patent. Three-vessel runoff is identified down to the level of the left foot. IMPRESSION: 1. No evidence of hemodynamically significant stenosis, extravasation or dissection. 2. Nonspecific hugh hepatis lymph nodes which may be reactive. 3. Additional findings as above. ACT 112: Negative or not required by law. Electronically signed by: To Barney M.D. 05/16/2024 2:19 PM Ankle X-Ray 05/16/24 17:09 XR ankle LT min 3V routine CLINICAL HISTORY: lt ankle pain TECHNIQUE: 3 views of the left ankle were obtained. Comparison: Comparison is made to foot radiographs 05/16/2024 FINDINGS: No fractures are present. The joint spaces are well preserved. No soft tissue abnormality is seen. Os perineum incidentally noted. The previously noted plantar radiodensity is not well seen on this exam. IMPRESSION: No evidence of acute bony injury. ACT 112: Negative or not required by law. Electronically signed by: To Barney M.D. 05/16/2024 7:[address] 05/17/24 10:24 CT knee RT w con CLINICAL HISTORY: to rule out fracture; hemarthrosis TECHNIQUE: Multidetector row helical CT of the right knee was performed without intravenous contrast. Coronal and sagittal reformations were obtained. Automated dose lowering techniques and/or adjustment according to patient size were utilized for this examination. Comparison: None available at the time of this dictation. FINDINGS: There is likely a minimally impacted fracture of the lateral tibial plateau with approximately 2 mm displacement best seen on coronal reformatted images. The joint spaces are maintained. There is suprapatellar effusion which appears greater than simple fluid density. The soft tissues are unremarkable. IMPRESSION: Likely impaction type fracture of the lateral tibial plateau with associated hemarthrosis. ACT 112: Negative or not required by law. Electronically signed by: To Barney M.D. 05/17/2024 11:12 AM
--- NOTE | 2024-05-17 22:50 | Podiatry Consultation ---
Date of Consultation May 17, 2024 Assessment & Plan (1) Sprain of left foot: Encounter type: initial encounter Qualified Code(s): S93.602A - Unspecified sprain of left foot, initial encounter (2) Contusion of left foot: Encounter type: initial encounter Qualified Code(s): S90.32XA - Contusion of left foot, initial encounter Plan Pt examined and evaluated. - Radiographs reviewed in detail. No fractures or evidence of Lisfranc injury. - Would benefit from relative rest, but otherwise early, active ROM as her pain decreases. Would do well with minimal immobiilzation. - Foreign body is likely radiographic artifact versus age indeterminate non- metallic foreign body. No acute puncture or abscess suspected. - Will f/u outpatient after discharge, if needed. Thanks for the consult. History of Present Illness Reason for Consultation: Left foot pain; foreign body? Attending Physician: Nora Farmer MD History of Present Illness Patient seen at bedside. States she presented to the hospital with worsening pain to the left foot and right knee after suffering a bad fall. She has noticed increasing difficulty with balance and strength overall. She denies any specific cause of her fall but states she was just falling all of a sudden. Now, her left foot hurts significantly still and she has been diagnosed with a proximal tibial fracture, as well. Allergies Allergy/AdvReac Type Severity Reaction Status Date / Time adhesive Allergy Intermediate RASH Verified 01/27/22 18:41 Quinolones Allergy Intermediate LEVAQUIN Verified 01/27/22 18:41 codeine AdvReac Severe "BECAME Verified 01/27/22 18:41 ADDICTED TO MED" PREFERS NOT TO TAKE IF POSSIBLE. morphine AdvReac Severe ADDICTION-PREFERS Verified 01/27/22 18:41 NOT TO TAKE IF POSSIBLE. linagliptin AdvReac Mild hypoglycemi Verified 01/27/22 18:41 a Home Medications Medication Instructions Recorded Confirmed Type atenolol 25 mg tablet 25 mg PO QAM 10/09/18 05/16/24 History azelastine 137 mcg (0.1 %) nasal 2 spray intranasal BID 10/09/18 05/16/24 History spray calcium carbonate 500 mg PO 5XD PRN Gi Upset 10/09/18 05/16/24 History cholecalciferol (vitamin D3) 1,250 50,000 unit PO WK 10/09/18 05/16/24 History mcg (50,000 unit) tablet clotrimazole 10 mg tyrell 10 mg mucous membrane 5XD PRN 10/09/18 05/16/24 History THRUSH furosemide 20 mg tablet 20 mg PO DAILY 10/09/18 05/16/24 History gabapentin 300 mg capsule 300 mg PO USEASDIRECTD 10/09/18 05/16/24 History ipratropium bromide 0.02 % 2.5 ml continuous nebulization Q4H 10/09/18 05/16/24 History solution for inhalation PRN Shortness Of Breath Or Wheezing levalbuterol HCl 1.25 mg/3 mL 1.25 mg inhalation QID PRN 10/09/18 05/16/24 History solution for nebulization Shortness Of Breath Or Wheezing levocetirizine 5 mg tablet 5 mg PO PM 10/09/18 05/16/24 History levothyroxine 75 mcg tablet 75 mcg PO QAM 10/09/18 05/16/24 History lisinopril 10 mg tablet 10 mg PO DAILY 10/09/18 05/16/24 History montelukast 10 mg tablet 10 mg PO HS 10/09/18 05/16/24 History nitroglycerin 0.4 mg sublingual 0.4 mg sublingual UD PRN Chest Pain 10/09/18 05/16/24 History tablet (Nitrostat) pantoprazole 40 mg tablet,delayed 40 mg PO QAM 10/09/18 05/16/24 History release paroxetine HCl 40 mg tablet 40 mg PO QAM 10/09/18 05/16/24 History potassium chloride 10 mEq 10 meq PO BIDM 10/09/18 05/16/24 History tablet,extended release(part/cryst) ropinirole 0.25 mg tablet 0.25 mg PO HS 10/09/18 05/16/24 History aspirin 81 mg capsule 81 mg PO QAM 01/27/22 05/16/24 History benzonatate 100 mg capsule 100 mg PO BID PRN Cough 01/27/22 05/16/24 History guaifenesin 600 mg tablet, 600 mg PO BID PRN Cough 01/27/22 05/16/24 History extended release 12 hr (Mucinex) albuterol sulfate 90 mcg/actuation 2 puff inhalation QID PRN 05/16/24 05/16/24 History aerosol inhaler SOB/Wheezing alendronate 70 mg tablet 70 mg PO QAM 05/16/24 05/16/24 History atorvastatin 40 mg tablet 40 mg PO HS 05/16/24 05/16/24 History fluticasone fur. 200 mcg-umeclid 1 inh inhalation DAILY 05/16/24 05/16/24 History 62.5 mcg-vilant 25 mcg inhalat.powder (Trelegy Ellipta) lidocaine 5 % topical patch 1 patch topical DAILY PRN Pain 05/16/24 05/16/24 History (Lidoderm) linagliptin 5 mg tablet (Tradjenta) 5 mg PO QAM 05/16/24 05/16/24 History Patient History Medical History (Updated 05/17/24 @ 22:50 by Ceasar Zaman DPM) COPD (chronic obstructive pulmonary disease) Diabetes Social History Smoking Status: Current every day smoker Tobacco Type: Cigarettes Second Hand Exposure: Yes; Do You Dip or Chew Tobacco: No; Tobacco Cessation Education Requested by Patient: No Hx Alcohol Use: No Hx Substance Use: No Preferred Language: Greenlandic Communication Ability: Effective Truckload Checker Required: No Beliefs That Will Affect Care: None Current Living Situation: Alone Other Information That Helps Us Care for You: No Feels Safe at Home: Yes Safety Concerns: Feels Safe At This Time Assistive Devices: Cane, Oxygen - at Night and Walker Review of Systems Review of Systems: All systems reviewed & are unremarkable except as noted in HPI & below Constitutional: no fever, no chills and no fatigue Eyes: no problem reported Ear, Nose, Mouth, Throat: no problem reported Respiratory: no problem reported Cardiovascular: + edema; no problem reported Gastrointestinal: no nausea, no vomiting and no problem reported Genitourinary: no problem reported Musculoskeletal: no problem reported Integumentary: no skin ulcer, no wounds and no erythema Neurologic: no generalized weakness Psychiatric: no problem reported Physical Exam Physical Exam: DP/PT pulses 1/4 b/l. CFT brisk to digits. Skin is relatively atrophic. Distal cooling noted. Ecchymosis noted to dorsal midfoot, left foot. This bruising is the point of maximal tenderness to the foot. No pain on palpation of left plantar foot where the radiographs suggest a retained foreign body. No palpable mass or foreign body noted. No local evidence of infection. Radiographs reviewed, reveal no osseous concerns; no fractures, dislocations, or arthritic changes noted. Constitutional: WD/WN, vitals as above + ill appearing and + obese Eyes: PERRL, conjunctivae normal, anicteric sclerae ENMT: external ear and nose normal, oropharynx normal Neck: trachea midline, no thyromegaly normal visual inspection Respiratory: normal respiratory effort; no respiratory distress Cardiovascular: Rate/Rhythm: regular rate and regular rhythm Extremities: normal capillary refill, + pedal edema and + edema; no calf tenderness Chest (Breasts): Chest: normal inspection of chest Gastrointestinal (Abdomen): Inspection/Auscultation: abdomen normal to inspection Percussion/Palpation: + abdomen tender and abdomen soft Musculoskeletal: no cyanosis or clubbing, extremities motor strength 5/5 Head/Neck/Chest: normocephalic and head atraumatic Extremities: extremities normal to inspection and + limited ROM of extremities Skin: no rashes, warm and dry + skin atrophy and + dry skin; no ulcers and no wound Neurologic: awake; no focal motor deficits Psychiatric: A+Ox3, euthymic affect Results & Data Vital Signs (Past 12 Hours) Vital Signs Temp Pulse Pulse Pulse Resp BP Pulse Ox 05/17/24 20:47 18 90 05/17/24 20:02 36.8 C 83 20 112/75 95 05/17/24 16:27 36.5 C 81 18 106/64 93 05/17/24 15:36 82 16 87 L 05/17/24 14:55 91 H 05/17/24 13:20 05/17/24 11:50 37.1 C 82 18 119/69 94 05/17/24 11:37 76 17 96 Pulse Ox Pulse Ox Pulse Ox O2 Del Method O2 Flow Rate O2 Flow Rate O2 Flow Rate 05/17/24 20:47 Nasal Cannula 1 05/17/24 20:02 Room Air 1 05/17/24 16:27 Nasal Cannula 1 05/17/24 15:36 Room Air 05/17/24 14:55 05/17/24 13:20 90 90 90 2 2 05/17/24 11:50 Nasal Cannula 2 05/17/24 11:37 Nasal Cannula 2 O2 Flow Rate 05/17/24 20:47 05/17/24 20:02 05/17/24 16:27 05/17/24 15:36 05/17/24 14:55 05/17/24 13:20 2 05/17/24 11:50 05/17/24 11:37
[2024-05-18 08:08] LABS: Hematocrit (blood only) 36.1 % (37.0-47.0); Hemoglobin 11.8 g/dl (12.0-16.0); Mean Corpuscular Hemoglobin 31.4 pg (25.0-34.0); Mean Corpuscular Hgb Conc 32.7 g/dL (32.0-36.0); Mean Platelet Volume 10.4 fL (9.4-12.4); Platelet Count 266 K/uL (130-400); RDW Coefficient of Variation 13.4 % (11.5-14.5); RDW Standard Deviation 47.4 fL (36.4-46.3); Red Blood Count 3.76 M/uL (4.20-5.40); White Blood Count 9.73 K/ul (4.8-10.8)
[2024-05-18 09:56] LABS: Calcium 9.3 mg/dl (8.6-10.3); Magnesium 1.9 mg/dl (1.7-2.4); Potassium 3.6 mmol/L (3.5-5.1)
[2024-05-18 10:03] LABS: BUN Creatinine Ratio 13.1 (10-20); Creatinine Clr Calc Pharmacy 35.6 ml/min; Est GFR (Non-African American) 33.6 ml/min; Phosphorus 4.4 mg/dl (2.5-4.9)
--- NOTE | 2024-05-18 10:38 | Hospitalist Progress Note ---
Date of Service May 18, 2024 Assessment & Plan (1) Syncope and collapse: Plan Ms. Danni Patricio is a 73y/o woman with PMHx of DM type II, CKD stage III, hypothyroidism, HLD, COPD, chronic respiratory failure with hypoxia, systolic heart failure due to idiopathic cardiomyopathy, HTN, vitamin D deficiency, GERD without esophagitis, osteoarthritis, macular degeneration, anxiety/depression, tobacco use disorder and other problems admitted for syncope evaluation. Patient reports sudden BLE weakness and "blacking out." Patient reports feeling well today, however has yet to ambulate since admission. Denies presyncopal episodes previously Pending discharge to rehab #Syncope & Collapse: Head & neck CTA negative. Brain MRI without evidence of acute infarct ECHO 05/16 EF 55-60%, poorly visualized anatomy however no apparent significant stenosis Neuro consult pending, however, suspicious for either medication related (BP in 120s without lisinopril) v vasovagal 2/2 pain -No eeg required -Should consider sleep study as OP r/o MIHAI -ZIO patch as an outpatient PT/OT evals: rehab Urine culture and blood culture NGTD [place] Dot form to be placed Hold furosemide stop abx #LLE Wounds: Sustained from patient's previous fall on Wednesday as per HPI. Wounds w/ surrounding erythema and warmth to touch on exam, WBC 13k. UA still pending. MRSA swabnegative, no growth on culture #R knee Hemarthrosis # L Foot Pain & ecchymosis 2/2 mechanical falls RLE arterial duplex US w/o any significant stenosis. CTA abd aorta w/ runoff without stenosis R knee joint effusion noted on R knee XR, no fx's were noted. Ortho consult: s/p aspiration of 48cc blood, cultures sent 05/16 Continue with ice and elevation L foot XR w/ no acute fx or dislocation, but does note a possible punctate foreign body. Podiatry consult pending. #HTN Monitor BP Hold lisinopril 10mg Continue Atenolol 25mg Hold furosemide #COPD, Chronic Respiratory Failure w/ Hypoxia: CXR & RVP both negative. Notable expiratory wheezing heard on exam. Scheduled Duonebs ordered. Uses 2L O2 HS at baseline - ordered. Continue home meds. 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 SSI regimen while inpatient. BSG checks ACHS. 6.5% 05/17/2024 Other Chronic Medical Conditions: GERD, hypothyroidism, osteoarthritis, HLD, seasonal allergies, anxiety/depression --> Can continue home meds for these specific conditions. DVT Prophylaxis: SQ Heparin Code Status: FULL CODE PCP: Franca Lilly MD Disposition: Admit to Med/Surg + Telemetry Admission and Anticipated Discharge Date Admission Date: May 16, 2024 Subjective NAEO Reports right knee immobilizer much more comfortable then day prior Denies any new symptoms at this Physical Exam Constitutional: WD/WN, vitals as above Respiratory: normal respiratory effort, lungs clear to auscultation Cardiovascular: RRR, no murmur, no edema Gastrointestinal (Abdomen): normal bowel sounds, soft, nontender, no hepatosplenomegaly Results & Data Results & Data Vital Signs (Past 12 Hours) Vital Signs Temp Pulse Pulse Resp BP Pulse Ox O2 Del Method 05/18/24 08:37 78 05/18/24 07:50 36.8 C 77 16 101/58 L 94 Nasal Cannula 05/18/24 07:36 77 16 94 Nasal Cannula 05/18/24 07:34 Nasal Cannula 05/18/24 02:21 18 94 Nasal Cannula 05/18/24 02:15 36.7 C 78 18 113/68 92 Nasal Cannula 05/18/24 00:38 77 05/18/24 00:11 36.7 C 86 20 110/65 93 Nasal Cannula 05/17/24 22:58 Nasal Cannula 05/17/24 22:46 18 95 Nasal Cannula O2 Flow Rate 05/18/24 08:37 05/18/24 07:50 2 05/18/24 07:36 2 05/18/24 07:34 2 05/18/24 02:21 2 05/18/24 02:15 2.5 05/18/24 00:38 05/18/24 00:11 2 05/17/24 22:58 2 05/17/24 22:46 2 Laboratory Results Short CBC 05/18/24 Range/Units 07:21 WBC 9.73 (4.8-10.8) K/ul Hgb 11.8 L (12.0-16.0) g/dl Hct 36.1 L (37.0-47.0) % Plt Count 266 (130-400) K/uL BMP 05/18/24 07:21 Sodium 139 Potassium 3.6 Chloride 105 Carbon Dioxide 25 BUN 20 Creatinine 1.53 H Glucose 115 H Calcium 9.3 Medications Administered Home Medications Medication Instructions Recorded Confirmed Last Taken atenolol 25 mg tablet 25 mg PO QAM 10/09/18 05/16/24 Unknown azelastine 137 mcg (0.1 %) nasal 2 spray intranasal BID 10/09/18 05/16/24 Unknown spray calcium carbonate 500 mg PO 5XD PRN Gi Upset 10/09/18 05/16/24 Unknown cholecalciferol (vitamin D3) 1,250 50,000 unit PO WK 10/09/18 05/16/24 Unknown mcg (50,000 unit) tablet clotrimazole 10 mg tyrell 10 mg mucous membrane 5XD PRN 10/09/18 05/16/24 Unknown THRUSH furosemide 20 mg tablet 20 mg PO DAILY 10/09/18 05/16/24 Unknown gabapentin 300 mg capsule 300 mg PO USEASDIRECTD 10/09/18 05/16/24 Unknown ipratropium bromide 0.02 % 2.5 ml continuous nebulization Q4H 10/09/18 05/16/24 Unknown solution for inhalation PRN Shortness Of Breath Or Wheezing levalbuterol HCl 1.25 mg/3 mL 1.25 mg inhalation QID PRN 10/09/18 05/16/24 Unknown solution for nebulization Shortness Of Breath Or Wheezing levocetirizine 5 mg tablet 5 mg PO PM 10/09/18 05/16/24 Unknown levothyroxine 75 mcg tablet 75 mcg PO QAM 10/09/18 05/16/24 Unknown lisinopril 10 mg tablet 10 mg PO DAILY 10/09/18 05/16/24 Unknown montelukast 10 mg tablet 10 mg PO HS 10/09/18 05/16/24 Unknown nitroglycerin 0.4 mg sublingual 0.4 mg sublingual UD PRN Chest Pain 10/09/18 05/16/24 Unknown tablet (Nitrostat) pantoprazole 40 mg tablet,delayed 40 mg PO QAM 10/09/18 05/16/24 Unknown release paroxetine HCl 40 mg tablet 40 mg PO QAM 10/09/18 05/16/24 Unknown potassium chloride 10 mEq 10 meq PO BIDM 10/09/18 05/16/24 Unknown tablet,extended release(part/cryst) ropinirole 0.25 mg tablet 0.25 mg PO HS 10/09/18 05/16/24 Unknown aspirin 81 mg capsule 81 mg PO QAM 01/27/22 05/16/24 Unknown benzonatate 100 mg capsule 100 mg PO BID PRN Cough 01/27/22 05/16/24 Unknown guaifenesin 600 mg tablet, 600 mg PO BID PRN Cough 01/27/22 05/16/24 Unknown extended release 12 hr (Mucinex) albuterol sulfate 90 mcg/actuation 2 puff inhalation QID PRN 05/16/24 05/16/24 Unknown aerosol inhaler SOB/Wheezing alendronate 70 mg tablet 70 mg PO QAM 05/16/24 05/16/24 Unknown atorvastatin 40 mg tablet 40 mg PO HS 05/16/24 05/16/24 Unknown fluticasone fur. 200 mcg-umeclid 1 inh inhalation DAILY 05/16/24 05/16/24 Unknown 62.5 mcg-vilant 25 mcg inhalat.powder (Trelegy Ellipta) lidocaine 5 % topical patch 1 patch topical DAILY PRN Pain 05/16/24 05/16/24 Unknown (Lidoderm) linagliptin 5 mg tablet (Tradjenta) 5 mg PO QAM 05/16/24 05/16/24 Unknown Active Medications Generic Name Dose Route Start Last Admin Trade Name Freq PRN Reason Stop Dose Admin Acetaminophen 650 mg 05/16/24 15:45 05/18/24 05:01 Acetaminophen 325 Mg Tab PO 06/15/24 15:44 650 mg Q4H PRN Administration pain/fever Albuterol 3 ml 05/16/24 19:00 05/18/24 07:35 Albut/Ipratrop 3mg/0.5mg Neb 3 Ml Vial NEB 06/15/24 18:59 3 ml Q4R CHRISTINA Administration Protocol Aspirin 81 mg 05/17/24 09:00 05/18/24 08:18 Aspirin 81 Mg Ectab PO 06/16/24 08:59 81 mg QAM CHRISTINA Administration Atenolol 25 mg 05/17/24 09:00 05/18/24 08:18 Atenolol 25 Mg Tablet PO 06/16/24 08:59 25 mg QAM CHRISTINA Administration Atorvastatin Calcium 40 mg 05/16/24 21:00 05/17/24 20:10 Atorvastatin 40 Mg Tab PO 06/15/24 20:59 40 mg HS CHRISTINA Administration Azelastine HCl 2 sprays 05/16/24 21:00 05/18/24 08:19 Azelastine Hcl 0.1% Nasal 200 Sprays/27,400 Mcg Btl NA 06/15/24 20:59 2 sprays BID CHRISTINA Administration Benzonatate 100 mg 05/17/24 09:27 05/17/24 18:01 Benzonatate 100 Mg Capsule PO 06/16/24 09:26 100 mg TID PRN Administration cough Cetirizine HCl 10 mg 05/16/24 21:00 05/17/24 20:10 Cetirizine Hcl 10 Mg Tablet PO 06/15/24 20:59 10 mg HS CHRISTINA Administration Fluticasone Furoate 1 puffs 05/17/24 09:00 05/18/24 08:19 Fluticasone Furoate 200mcg 14 Puffs/Inhaler INH 06/16/24 08:59 1 puffs DAILY CHRISTINA Administration Furosemide 20 mg 05/17/24 09:00 05/18/24 08:19 Furosemide 20 Mg Tab PO 06/16/24 08:59 20 mg DAILY CHRISTINA Administration Gabapentin 300 mg 05/16/24 16:00 05/18/24 08:19 Gabapentin 300 Mg Cap PO 06/15/24 15:59 300 mg BID@0900,1400 CHRISTINA Administration Gabapentin 300 mg 05/16/24 21:00 05/17/24 20:09 Gabapentin 300 Mg Cap PO 06/15/24 20:59 300 mg HS CHRISTINA Administration Heparin Sodium (Porcine) 5,000 units 05/16/24 21:00 05/18/24 08:19 Heparin Sod 5,000 Unit/0.5 Ml Vial SQ 06/15/24 20:59 5,000 units Q12 CHRISTINA Administration Ceftriaxone Sodium 2,000 mg in 50 mls @ 100 mls/hr 05/16/24 16:00 05/17/24 17:20 Rocephin IV 05/23/24 15:59 Infused Q24H CHRISTINA Infusion Insulin Aspart 0 units 05/16/24 16:30 05/18/24 09:18 Insulin Aspart Per Unit Charge SC 06/15/24 16:29 5 units ACHS CHRISTINA Administration Levothyroxine Sodium 75 mcg 05/17/24 06:30 05/18/24 05:01 Levothyroxine Sodium 75 Mcg Tablet PO 06/16/24 06:29 75 mcg DAILYBB CHRISTINA Administration Montelukast Sodium 10 mg 05/16/24 21:00 05/17/24 20:09 Montelukast Sodium 10 Mg Tablet PO 06/15/24 20:59 10 mg HS CHRISTINA Administration Pantoprazole Sodium 40 mg 05/17/24 09:00 05/18/24 08:19 Pantoprazole 40 Mg Tab PO 06/16/24 08:59 40 mg QAM CHRISTINA Administration Paroxetine HCl 40 mg 05/17/24 09:00 05/18/24 08:19 Paroxetine Hcl 20 Mg Tab PO 06/16/24 08:59 40 mg QAM CHRISTINA Administration Potassium Chloride 10 meq 05/16/24 17:00 05/18/24 08:18 Potassium Chloride 10 Meq Tabcr PO 06/15/24 16:59 10 meq BIDM CHRISTINA Administration Ropinirole HCl 0.25 mg 05/16/24 21:00 05/17/24 20:09 Ropinirole Hcl 0.25 Mg Tablet PO 06/15/24 20:59 0.25 mg HS CHRISTINA Administration Umeclidinium/Vilanterol 1 puffs 05/17/24 09:00 05/18/24 08:19 Umeclidinium/Vilanterol 62.5/25mcg 7 Puffs/Inhaler INH 06/16/24 08:59 1 puffs DAILY CHRISTINA Administration
--- NOTE | 2024-05-18 10:59 | Orthopedic Progress Note ---
Date of Service May 18, 2024 Assessment & Plan (1) Hemarthrosis, right knee: Plan: IMPRESSION: R knee effusion secondarily to traumatic lateral tibial plateau fracture The patient is aware of her lateral tibial plateau fracture with impaction Continue NWB RLE, ROM brace blocked 0-30 deg PT, may work on gentle ROM of the knee OT Check labs Continue pain control RICE Continue care per primary service. Will continue to follow. (2) Left ankle pain: Plan: IMPRESSION: Left foot and ankle pain secondarily to sprain PLAN: High Tide Cam boot. WBAT in Boot RICE, may remove boot to ice PT/OT D/C planning Continue care per primary service Will continue to follow. Admission and Anticipated Discharge Date Admission Date: May 16, 2024 Supervising Physician Co-Signing Physician Notes I, Dr. Rodriguez, saw and examined the patient. I discussed the management with my PA. I reviewed my PAs note and agree with the documented findings and of medical decision making and plan of care I developed. Subjective This 73-year-old female is seen today in her room. She continues to be nonweightbearing due to her left ankle injury and right tibial plateau fracture. She has no other complaints. Physical Exam Physical Exam: General: Well-developed, well-nourished, elderly female, in no acute distress. Laying in bed. Alert and oriented. Skin: Warm and dry with good turgor. Mild to moderate ecchymosis and edema is present in the left ankle and foot. It is consistent with yesterday's exam. No worsening today. Evaluation reveals some minor skin abrasion anteriorly from her fall. No significant edema. No ecchymosis. Musculoskeletal: Patient has intact motor function of her right hip, knee, ankle. She has intact plantarflexion and dorsiflexion as well as knee extension. There is limited left ankle flexion and dorsiflexion secondary to discomfort. Neurologic: Gross sensation is intact across both lower extremities by soft touch. Results & Data Vital Signs (Past 12 Hours) Vital Signs Temp Pulse Pulse Resp BP Pulse Ox O2 Del Method 05/18/24 10:41 68 18 88 L Room Air 05/18/24 08:37 78 05/18/24 07:50 36.8 C 77 16 101/58 L 94 Nasal Cannula 05/18/24 07:36 77 16 94 Nasal Cannula 05/18/24 07:34 Nasal Cannula 05/18/24 02:21 18 94 Nasal Cannula 05/18/24 02:15 36.7 C 78 18 113/68 92 Nasal Cannula 05/18/24 00:38 77 05/18/24 00:11 36.7 C 86 20 110/65 93 Nasal Cannula 05/17/24 22:58 Nasal Cannula O2 Flow Rate 05/18/24 10:41 05/18/24 08:37 05/18/24 07:50 2 05/18/24 07:36 2 05/18/24 07:34 2 05/18/24 02:21 2 05/18/24 02:15 2.5 05/18/24 00:38 05/18/24 00:11 2 05/17/24 22:58 2 Laboratory Results CBC obtained today shows a white count of 9.73. H&H of 11.8 and 36.1. Platelets 266,000. Electrolytes are unremarkable. BUN of 20 with creatinine 1.53. Glucose this morning 115.
[2024-05-18] MEDS: tiZANidine HCL 4 MG TABLET PO STA (22:14)
--- NOTE | 2024-05-18 22:14 | Electrocardiogram Report ---
Test Reason : Blood Pressure : */* mmHG Vent. Rate : 83 BPM Atrial Rate : 83 BPM P-R Int : 136 ms QRS Dur : 86 ms QT Int : 378 ms P-R-T Axes : 71 -48 66 degrees QTcB Int : 444 ms Normal sinus rhythm Left axis deviation Abnormal ECG When compared with ECG of 23-Mar-2023 13:03, Premature atrial complexes are no longer Present QRS axis Shifted left Criteria for Septal infarct are no longer Present Confirmed by Jefferson Baxter ([id number]) on 05/18/2024 10:13:51 PM Referred By: REFERRED SELF Confirmed By: Jefferson Baxter
[2024-05-18] MEDS: POTASSIUM CHLORIDE CRTAB 20 MEQ TABCR PO STA (22:18)
--- NOTE | 2024-05-19 11:27 | Orthopedic Progress Note ---
Date of Service May 19, 2024 Assessment & Plan (1) Hemarthrosis, right knee: Plan: IMPRESSION: R knee effusion secondarily to traumatic lateral tibial plateau fracture The patient is aware of her lateral tibial plateau fracture with impaction Continue NWB RLE, ROM brace blocked 0-30 deg PT, may work on gentle ROM of the knee OT Check labs Continue pain control RICE Continue care per primary service. (2) Left ankle pain: Plan: IMPRESSION: Left foot and ankle pain secondarily to sprain PLAN: High Tide Cam boot. WBAT in Boot RICE, may remove boot to ice PT/OT D/C planning Continue care per primary service Admission and Anticipated Discharge Date Admission Date: May 16, 2024 Supervising Physician Co-Signing Physician Notes I, Dr. Rodriguez, saw and examined the patient. I discussed the management with my PA. I reviewed my PAs note and agree with the documented findings and of medical decision making and plan of care I developed. Improved ROM of left foot and ankle. Decreased tenderness to palpation. Continued Swelling and ecchymosis lateral ankle and foot. - calf and fore foot squeeze test. Subjective This 73-year-old female seen today for follow-up of a right tibial plateau fracture and a right ankle sprain that are being treated with a hinged knee brace and a cam walker boot. Patient is nonweightbearing on the right lower extremity but is able to weight-bear as tolerated on the left with walker assistance. Patient states she worked with physical therapy this morning to be able to transition easily from her bed to the chair. She states her pain is well-controlled with p.o. pain medication. Currently she denies chest pain, increasing shortness of breath, fever, chills, sweats, numbness or tingling in the lower extremity. She also denies nausea, vomiting, diarrhea or difficulty voiding. Review of Systems Review of Systems: All systems reviewed & are unremarkable except as noted in Subjective Physical Exam Physical Exam: Lower extremities: Patient has intact motor function of her right hip, knee, ankle. She has intact plantarflexion and dorsiflexion as well as knee extension. There is limited left ankle flexion and dorsiflexion secondary to discomfort. Mild to moderate ecchymosis and edema is present in the left ankle and foot. It is consistent with yesterday's exam. No worsening today. Evaluation reveals some minor skin abrasion anteriorly from her fall. No sig nificant edema. No ecchymosis. Gross sensation is intact across both lower extremities by soft touch. Results & Data Vital Signs (Past 12 Hours) Vital Signs Temp Pulse Pulse Resp BP Pulse Ox O2 Del Method 05/19/24 11:01 71 05/19/24 11:00 103 H 21 93 Nasal Cannula 05/19/24 07:53 37 C 72 20 97/62 L 91 Nasal Cannula 05/19/24 07:33 Nasal Cannula 05/19/24 07:21 78 18 90 Nasal Cannula 05/19/24 04:12 36.6 C 71 18 95/60 L 90 Nasal Cannula 05/19/24 03:28 70 18 92 Nasal Cannula 05/19/24 01:12 75 05/18/24 23:39 Nasal Cannula O2 Flow Rate 05/19/24 11:01 05/19/24 11:00 2 05/19/24 07:53 2 05/19/24 07:33 2 05/19/24 07:21 2 05/19/24 04:12 2 05/19/24 03:28 2 05/19/24 01:12 05/18/24 23:39 2 Diagnostic Findings Laboratory Results WBC 9.73 K/ul (4.8-10.8) 05/18/24 07:21 RBC 3.76 M/uL (4.20-5.40) L 05/18/24 07:21 Hgb 11.8 g/dl (12.0-16.0) L 05/18/24 07:21 POC Hgb 12.9 g/dl (12.0-16.0) 05/16/24 09:03 Hct 36.1 % (37.0-47.0) L 05/18/24 07:21 POC Hct 38 % (37-47) 05/16/24 09:03 MCV 96.0 fL (80.0-100.0) 05/18/24 07:21 MCH 31.4 pg (25.0-34.0) 05/18/24 07:21 MCHC 32.7 g/dL (32.0-36.0) 05/18/24 07:21 RDW Std Deviation 47.4 fL (36.4-46.3) H 05/18/24 07:21 RDW Coeff of Scar 13.4 % (11.5-14.5) 05/18/24 07:21 Plt Count 266 K/uL (130-400) 05/18/24 07:21 MPV 10.4 fL (9.4-12.4) 05/18/24 07:21 Immature Gran % (Auto) 1.7 % 05/16/24 08:35 Neut % (Auto) 61.7 % 05/16/24 08:35 Lymph % (Auto) 23.0 % 05/16/24 08:35 Woodruff % (Auto) 10.5 % 05/16/24 08:35 Eos % (Auto) 2.7 % 05/16/24 08:35 Baso % (Auto) 0.4 % 05/16/24 08:35 Neut # (Auto) 8.54 K/uL (1.40-6.50) H 05/16/24 08:35 Lymph # (Auto) 3.19 K/uL (1.20-3.40) 05/16/24 08:35 Woodruff # (Auto) 1.45 K/uL (0.11-0.59) H 05/16/24 08:35 Eos # (Auto) 0.37 K/uL (0.00-0.50) 05/16/24 08:35 Baso # (Auto) 0.06 K/uL (0.00-0.20) 05/16/24 08:35 Immature Gran # (Auto) 0.24 K/uL (0.01-0.20) H 05/16/24 08:35 PT 11.4 Seconds (9.0-12.0) 05/16/24 11:35 INR 1.1 (0.9-1.1) 05/16/24 11:35 APTT 27 Seconds (21-31) 05/16/24 11:35 PTT Ratio 1.0 05/16/24 11:35 POC Sodium 140 mmol/L (135-144) 05/16/24 09:03 Sodium 139 mmol/L (136-145) 05/18/24 07:21 POC Potassium 3.8 mmol/L (3.3-5.0) 05/16/24 09:03 Potassium 3.6 mmol/L (3.5-5.1) 05/18/24 07:21 POC Chloride 106 mmol/L (101-112) 05/16/24 09:03 Chloride 105 mmol/L (98-107) 05/18/24 07:21 Carbon Dioxide 25 mmol/L (21-32) 05/18/24 07:21 POC Total CO2 26 mmol/L (24-31) 05/16/24 09:03 Anion Gap 9 (3-11) 05/18/24 07:21 POC Anion Gap 14.0 mmol/L (16-25) L 05/16/24 09:03 POC BUN 16 mg/dl (7-18) 05/16/24 09:03 BUN 20 mg/dl (6-23) 05/18/24 07:21 Creatinine 1.53 mg/dl (0.6-1.2) H 05/18/24 07:21 POC Creatinine 1.3 mg/dl (0.6-1.3) 05/16/24 09:03 Est Cr Clr Drug Dosing 35.6 ml/min 05/18/24 07:21 Est GFR ( Amer) 39.0 ml/min 05/18/24 07:21 Est GFR (Non-Af Amer) 33.6 ml/min 05/18/24 07:21 BUN/Creatinine Ratio 13.1 (10-20) 05/18/24 07:21 Glucose 115 mg/dl (70-99(Fasting)) H 05/18/24 07:21 POC Glucose 138 mg/dl (70-99) H 05/19/24 08:21 POC Glucose (other) 129 mg/dl (70-99) H 05/16/24 09:03 Estimat Average Glucose 140 mg/dl 05/17/24 06:21 Hemoglobin A1c 6.5 % (4.5-5.6) H 05/17/24 06:21 Calcium 9.3 mg/dl (8.6-10.3) 05/18/24 07:21 POC Ioniz Calcium Marko 1.15 mmol/l (1.12-1.32) 05/16/24 09:03 Phosphorus 4.4 mg/dl (2.5-4.9) D 05/18/24 07:21 Magnesium 1.9 mg/dl (1.7-2.4) 05/18/24 07:21 Total Bilirubin 0.4 mg/dl (0.2-1.0) 05/16/24 08:35 AST 18 U/L (13-39) 05/16/24 08:35 ALT 14 U/L (7-52) 05/16/24 08:35 Alkaline Phosphatase 91 U/L (34-104) 05/16/24 08:35 Troponin I High Sens 5.1 pg/ml (0-14) 05/16/24 08:35 Total Protein 7.5 gm/dl (6.0-8.3) 05/16/24 08:35 Albumin 3.8 gm/dl (3.4-5.0) 05/16/24 08:35 Globulin 3.7 gm/dl (2.5-4.0) 05/16/24 08:35 Albumin/Globulin Ratio 1.0 (0.9-2) 05/16/24 08:35 Triglycerides 87 mg/dl (0-150) 05/17/24 06:21 Cholesterol 91 mg/dl (0-200) 05/17/24 06:21 LDL Cholesterol, Calc 41 mg/dl 05/17/24 06:21 VLDL Cholesterol, Calc 17 mg/dl (0-30) 05/17/24 06:21 HDL Cholesterol 33 mg/dl 05/17/24 06:21 Cholesterol/HDL Ratio 2.8 (0-5) 05/17/24 06:21 Fluid Comment 05/16/24 16:21 Synovial Source Right Knee 05/16/24 16:21 Synovial Color Red 05/16/24 16:21 Synovial Appearance Bloody 05/16/24 16:21 Synovial WBC (Auto) 7106 /ul (0-200) H 05/16/24 16:21 Synovial RBC (Auto) 0789268 /uL 05/16/24 16:21 Synovial Polynuclear % 65.7 % 05/16/24 16:21 Synovial Mononuclear % 34.3 % 05/16/24 16:21 Synovial Crystals 05/16/24 16:21 Nasal Screen MRSA (PCR) Negative (Negative) 05/16/24 12:30 Adenovirus (PCR) Not Detected (NotDetected) 05/16/24 09:17 B. pertussis DNA (PCR) Not Detected (NotDetected) 05/16/24 09:17 B.parapertussis DNA PCR Not Detected (NotDetected) 05/16/24 09:17 C. pneumoniae DNA (PCR) Not Detected (NotDetected) 05/16/24 09:17 Coronavirus OC43 (PCR) Not Detected (NotDetected) 05/16/24 09:17 Coronavirus HKU1 (PCR) Not Detected (NotDetected) 05/16/24 09:17 Coronavirus 229E (PCR) Not Detected (NotDetected) 05/16/24 09:17 SARS-CoV-2 (PCR) Not Detected (NotDetected) 05/16/24 09:17 Coronavirus NL63 (PCR) Not Detected (NotDetected) 05/16/24 09:17 Human Metapneumovir PCR Not Detected (NotDetected) 05/16/24 09:17 Influenza Type A (PCR) Not Detected (NotDetected) 05/16/24 09:17 Influenza Type B (PCR) Not Detected (NotDetected) 05/16/24 09:17 M. pneumoniae (PCR) Not Detected (NotDetected) 05/16/24 09:17 Parainfluenza 1 (PCR) Not Detected (NotDetected) 05/16/24 09:17 Parainfluenza 2 (PCR) Not Detected (NotDetected) 05/16/24 09:17 Parainfluenza 3 (PCR) Not Detected (NotDetected) 05/16/24 09:17 Parainfluenza 4 (PCR) Not Detected (NotDetected) 05/16/24 09:17 RSV (PCR) Not Detected (NotDetected) 05/16/24 09:17 Entero/Rhino (PCR) Not Detected (NotDetected) 05/16/24 09:17 Impressions Chest X-Ray 05/16/24 08:55 XR chest 1V portable HISTORY: 73 years-old Female neuro deficit, acute stroke suspected COMPARISON: 03/23/2023 TECHNIQUE: AP view the chest FINDINGS: Cardiomediastinal and hilar silhouettes are within normal limits. Atherosclerosis of the aorta. No pneumothorax, pleural effusion or airspace consolidation. The bones appear grossly intact. Left-sided rotator cuff calcific tendinosis. Healed chronic left-sided rib fractures. IMPRESSION: No acute process. ACT 112: Negative or not required by law. The above report was generated using voice recognition software. It may contain grammatical, syntax or spelling errors. Electronically signed by: Negro Rodarte M.D. 05/16/2024 9:23 AM Foot X-Ray 05/16/24 08:55 XR foot LT min 3V routine HISTORY: 73 years-old Female fall, lateral pain acute pain of the left foot status post fall COMPARISON: 06/07/2019 TECHNIQUE: 3 views of the left foot FINDINGS: Demineralized appearance of the bones with mostly mild multifocal osteoarthritis. No acute fracture, dislocation or osseous erosion. Small calcaneal enthesophytes. Os peroneum. Possible foreign body within the plantar and lateral tissues, 2 mm on the oblique and lateral views. IMPRESSION: 1. No acute fracture or dislocation. 2. Possible punctate foreign body. ACT 112: Negative or not required by law. The above report was generated using voice recognition software. It may contain grammatical, syntax or spelling errors. Electronically signed by: Negro Rodarte M.D. 05/16/2024 9:[address] 05/16/24 08:55 CT head/brain wo con CLINICAL HISTORY: 73 years-old Female with neuro deficit, acute stroke suspected. Acute stroke like symptoms TECHNIQUE: Multiple axial CT images of the head were obtained without contrast. A dose lowering technique was utilized adhering to the principles of ALARA. COMPARISON: CTA head of same day, head CT 10/09/2018 FINDINGS: No acute intracranial hemorrhage, midline shift, intracranial mass, hydroceph alus, territorial ischemia or abnormal extra-axial collection. Involutional changes with suggestion of chronic microvascular ischemic disease. Cerebral vascular calcifications. The calvarium is intact. Small left mastoid effusion. The right mastoid air cells are clear. Prior partial ethmoidectomy. Mild mucosal thickening with small air-fluid level of the left maxillary sinus. Prior bilateral lens repair. IMPRESSION: No acute intracranial abnormality. ACT 112: Negative or not required by law. The above report was generated using voice recognition software. It may contain grammatical, syntax or spelling errors. Electronically signed by: Negro Rodarte M.D. 05/16/2024 10:05 AM Head CTA 05/16/24 08:55 CT ANGIOGRAM OF THE BRAIN CLINICAL HISTORY: Neurological deficit. Stroke like symptoms. COMPARISON STUDY: Unenhanced CT of the brain performed concurrently on 05/16/2024. MR angiography of the brain dated 09/16/2013. TECHNIQUE: Following the IV administration of 120 cc of Optiray 320, CT angiogram of the brain was performed from the skull base to the vertex. Images are reviewed in the axial, sagittal, and coronal planes. 3-D MIPS images are created and assessed. IV contrast was administered without complication. A dose lowering technique was utilized adhering to the principles of ALARA. FINDINGS: Brain parenchyma: There is age-related involutional change noting minimal microangiopathic disease. There is no evidence of hemorrhage, mass effect, or acute territorial ischemia noting angiographic phase technique. There is no evidence of enhancing mass lesion on the angiogram phase images. No extra-axial fluid collection is seen. Senior-white matter differentiation is preserved. Ventricles, sulci, and cisterns: Prominent secondary to involutional change. CT angiogram of the brain: There is atherosclerotic calcification of the cavernous carotid arteries. The internal carotid arteries are widely patent, as are the anterior and middle cerebral arteries. The vertebrobasilar system and posterior cerebral arteries are widely patent. The vertebral arteries are codominant. There is a right posterior communicating artery. There is no aneurysm, high-grade stenosis, or focal vessel cutoff identified throughout the intracranial circulation. Dural sinuses: Clear as visualized. Orbits: The bony orbits are intact. The orbital contents are normal as visualized noting bilateral ocular lens implants. Sinuses and mastoids: There is evidence of previous paranasal sinus surgery. There is mild mucosal thickening in the left maxillary antrum. Trace mucosal thickening is seen within the sphenoid sinuses, frontal sinuses, and the ethmoid cavity. There are small mastoid effusions, left larger than right. Calvarium: Unremarkable. IMPRESSION: 1. There is no evidence of hemorrhage, mass effect, or acute territorial ischemia noting angiographic phase technique. 2. Unremarkable CT angiogram of the brain. ACT 112: Negative or not required by law. Electronically signed by: Rogelio Nugent M.D. 05/16/2024 9:50 AM Knee X-Ray 05/16/24 08:55 RIGHT KNEE 3 VIEWS CLINICAL HISTORY: Fall. Right knee pain. FINDINGS: AP, crosstable lateral, and sunrise views of the right knee are compared to study dated 07/25/2009. The skeletal structures are osteopenic. No fracture is seen. The joint spaces are maintained. There are tiny marginal osteophytes and patellar enthesophytes. A joint effusion is noted. The overlying soft tissues are normal as imaged. A calcified fabella is observed. IMPRESSION: Joint effusion with no acute bony abnormality identified. Electronically signed by: Rogelio Nugent M.D. 05/16/2024 10:32 AM Neck CTA 05/16/24 08:55 CT angio neck with con CLINICAL HISTORY: 73 years-old Female with neuro deficit, acute stroke suspected. Acute stroke symptoms COMPARISON STUDY: CTA of head of same day TECHNIQUE: Following the IV administration of 1 20 mL of Optiray, CT angiogram of the neck was performed from the aortic arch to the skull base. Images are reviewed in the axial, sagittal, and coronal planes. 3-D MIPS images are created and assessed. IV contrast was administered without complication. All measurements were calculated based on NASCET criteria. A dose lowering technique was utilized adhering to the principles of ALARA. CT DOSE: 1053.29 mGy.cm FINDINGS: Moderate atherosclerosis of the thoracic aortic arch. Patent common and internal carotid arteries without significant atherosclerosis. The vertebral arteries are codominant and widely patent. Mild mucosal thickening of the paranasal sinuses. Small left mastoid effusion. Multilevel degenerative changes of the cervical spine. Pulmonary emphysema. The lung apices appear generally clear. No acute fracture identified. IMPRESSION:Unremarkable CTA of the neck. ACT 112: Negative or not required by law. The above report was generated using voice recognition software. It may contain grammatical, syntax or spelling errors. Electronically signed by: Negro Rodarte M.D. 05/16/2024 10:07 AM Duplex Scan Lower Extremity Artery 05/16/24 08:57 US arterial duplex LE RT CLINICAL HISTORY: leg pain, weakness, cool, diminished pulse TECHNIQUE: Real-time grayscale and color and spectral Doppler ultrasound imaging of the right lower extremity arteries was performed. Measurements calculated based on NASCET criteria. COMPARISON: None available at the time of this dictation. FINDINGS/IMPRESSION: No elevated velocities are seen to suggest hemodynamically significant stenosis. Triphasic waveforms are seen to the level of the femoral artery with biphasic waveforms at the popliteal artery and below. ACT 112: Negative or not required by law. Electronically signed by: To Barney M.D. 05/16/2024 10:58 AM Brain MRI 05/16/24 12:34 MR brain wo/w con CLINICAL HISTORY: Stroke rule-out TECHNIQUE: Multiplanar and multisequence MR images of the brain were obtained prior to and following administration of gadolinium contrast. Comparison: Comparison is made to MRI brain 09/16/[address] head 05/16/2024 FINDINGS: No abnormal restricted diffusion is identified. The white matter is unremarkable. The ventricular system is normal in appearance. No mass or abnormal enhancement is seen. There is no mass effect or midline shift. There is no evidence of acute intraparenchymal hemorrhage. No extra axial fluid collections are seen. The corpus callosum, pituitary gland, and cerebellar tonsils appear grossly unremarkable. Flow voids of the major intracranial arterial vessels are identified. The imaged portions of the paranasal sinuses, mastoid air cells, and orbits are unremarkable. Incidental note is made of bilateral lens replacements. IMPRESSION: No acute abnormality and in particular no evidence of acute infarct. ACT 112: Negative or not required by law. Electronically signed by: To Barney M.D. 05/16/2024 2:33 PM Aorta w/Runoff CTA 05/16/24 12:37 CT ang AA runof w inc nestor philip CLINICAL HISTORY: RLE cold to touch TECHNIQUE: Multidetector row helical CT of the abdomen, pelvis and bilateral lower extremities down through the feet was performed, following intravenous administration of iodinated contrast. No oral contrast was administered. Automated dose lowering techniques and/or adjustment according to patient size were utilized for this exam. Coronal and sagittal reformations were obtained. MIP and 3D volume rendered reconstructions were obtained. CT DOSE: 1859.53 mGy.cm Comparison: Comparison is made to right lower extremity Doppler ultrasound 05/16/2024 FINDINGS: Lower chest: A few blebs are noted in the lower lungs. Liver: Unremarkable. No focal lesions are seen. Gallbladder and biliary tree: Cholelithiasis is seen without evidence of cholecystitis. No intra- or extrahepatic biliary ductal dilation. Pancreas: Unremarkable, no focal lesions. Spleen: Unremarkable. Adrenals: Unremarkable. Kidneys and ureters: Renal cysts are seen. Bladder: Unremarkable. Reproductive organs: Unremarkable. Bowel: Diverticulosis is seen without evidence of diverticulitis. There is a small hiatal hernia. Lymph nodes Retroperitoneal: Hugh hepatis nodes measure up to 12 mm in diameter. Pelvic: Unremarkable. Mesenteric: Unremarkable. Peritoneum: Normal. Abdominal wall: Unremarkable. Bones: Degenerative changes in the visualized spine. CT angiogram: The abdominal aortic contours appear intact without evidence of aneurysmal dilatation and/or dissection. Scattered atherosclerotic calcifications of the abdominal aorta and its major branches. The origins of the celiac axis, superior mesenteric, inferior mesenteric and bilateral renal arteries are patent. The right common iliac artery is patent. The right internal iliac artery is patent. The right external iliac artery is patent. The right common femoral artery is patent. The right deep femoral artery is patent. The right superficial femoral artery is patent. The right popliteal artery is patent. Three-vessel runoff is identified in the right lower extremity. The right anterior tibial is patent. The posterior tibial artery is patent. The right peroneal artery is patent. Three-vessel runoff is identified down to the level of the right foot. The left common iliac artery is patent. The left internal iliac artery is patent. The left external iliac artery is patent. The left common femoral artery is patent. The left deep femoral artery is patent. The left superficial femoral artery is patent. The left popliteal artery is patent. Three-vessel runoff is identified in the left lower extremity. The left anterior tibial is patent. The left posterior tibial artery is patent. The left peroneal artery is patent. Three-vessel runoff is identified down to the level of the left foot. IMPRESSION: 1. No evidence of hemodynamically significant stenosis, extravasation or dissection. 2. Nonspecific hugh hepatis lymph nodes which may be reactive. 3. Additional findings as above. ACT 112: Negative or not required by law. Electronically signed by: To Barney M.D. 05/16/2024 2:19 PM Ankle X-Ray 05/16/24 17:09 XR ankle LT min 3V routine CLINICAL HISTORY: lt ankle pain TECHNIQUE: 3 views of the left ankle were obtained. Comparison: Comparison is made to foot radiographs 05/16/2024 FINDINGS: No fractures are present. The joint spaces are well preserved. No soft tissue abnormality is seen. Os perineum incidentally noted. The previously noted plantar radiodensity is not well seen on this exam. IMPRESSION: No evidence of acute bony injury. ACT 112: Negative or not required by law. Electronically signed by: To Barney M.D. 05/16/2024 7:[address] 05/17/24 10:24 CT knee RT w con CLINICAL HISTORY: to rule out fracture; hemarthrosis TECHNIQUE: Multidetector row helical CT of the right knee was performed without intravenous contrast. Coronal and sagittal reformations were obtained. Automated dose lowering techniques and/or adjustment according to patient size were utilized for this examination. Comparison: None available at the time of this dictation. FINDINGS: There is likely a minimally impacted fracture of the lateral tibial plateau with approximately 2 mm displacement best seen on coronal reformatted images. The joint spaces are maintained. There is suprapatellar effusion which appears greater than simple fluid density. The soft tissues are unremarkable. IMPRESSION: Likely impaction type fracture of the lateral tibial plateau with associated hemarthrosis. ACT 112: Negative or not required by law. Electronically signed by: To Barney M.D. 05/17/2024 11:12 AM
--- NOTE | 2024-05-19 15:45 | Hospitalist Progress Note ---
Date of Service May 19, 2024 Assessment & Plan (1) Syncope and collapse: Plan Ms. Danni Patricio is a 73y/o woman with PMHx of DM type II, CKD stage III, hypothyroidism, HLD, COPD, chronic respiratory failure with hypoxia, systolic heart failure due to idiopathic cardiomyopathy, HTN, vitamin D deficiency, GERD without esophagitis, osteoarthritis, macular degeneration, anxiety/depression, tobacco use disorder and other problems admitted for syncope evaluation. Patient reports sudden BLE weakness and "blacking out." Patient reports feeling well today, however has yet to ambulate since admission. Denies presyncopal episodes previously Pending discharge to rehab #Syncope & Collapse: Head & neck CTA negative. Brain MRI without evidence of acute infarct ECHO 05/16 EF 55-60%, poorly visualized anatomy however no apparent significant stenosis Neuro consult pending, however, suspicious for either medication related (BP in 120s without lisinopril) v vasovagal 2/2 pain -No eeg required -Should consider sleep study as OP r/o MIHAI -ZIO patch as an outpatient PT/OT evals: rehab Urine culture and blood culture NGTD [place] Dot form submitted Hold furosemide, lisinopril and atenolol -No active swelling, no signs of infection, patient eating well and stable stop abx #LLE Wounds: Sustained from patient's previous fall on Wednesday as per HPI. Wounds w/ surrounding erythema and warmth to touch on exam, WBC 13k. UA still pending. MRSA swabnegative, no growth on culture #R knee Hemarthrosis # L Foot Pain & ecchymosis 2/2 mechanical falls RLE arterial duplex US w/o any significant stenosis. CTA abd aorta w/ runoff without stenosis R knee joint effusion noted on R knee XR, no fx's were noted. Ortho consult: s/p aspiration of 48cc blood, cultures sent 05/16 Continue with ice and elevation L foot XR w/ no acute fx or dislocation, but does note a possible punctate foreign body. Podiatry consult pending. #HTN Monitor BP Hold lisinopril 10mg hold Atenolol 25mg Hold furosemide #COPD, Chronic Respiratory Failure w/ Hypoxia: CXR & RVP both negative. Notable expiratory wheezing heard on exam. Scheduled Duonebs ordered. Uses 2L O2 HS at baseline - ordered. Continue home meds. 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 SSI regimen while inpatient. BSG checks ACHS. 6.5% 05/17/2024 Other Chronic Medical Conditions: GERD, hypothyroidism, osteoarthritis, HLD, seasonal allergies, anxiety/depression --> Can continue home meds for these specific conditions. DVT Prophylaxis: SQ Heparin Code Status: FULL CODE PCP: Franca Lilly MD Disposition: Admit to Med/Surg + Telemetry Admission and Anticipated Discharge Date Admission Date: May 16, 2024 Subjective JENNYFER Reports feeling well overall on exam and motivated to get stronger Brace on knee feels more comfortable and she is feeling more confident moving with it Denies any other new concerns Physical Exam Constitutional: WD/WN, vitals as above Respiratory: normal respiratory effort, lungs clear to auscultation Cardiovascular: RRR, no murmur, no edema Gastrointestinal (Abdomen): normal bowel sounds, soft, nontender, no hepatosplenomegaly Musculoskeletal: right hinged knee brace in place, ecchymosis on left foot--better movement in digits without pain Results & Data Results & Data Vital Signs (Past 12 Hours) Vital Signs Temp Pulse Pulse Resp BP Pulse Ox O2 Del Method 05/19/24 15:34 36.8 C 79 18 100/63 92 Nasal Cannula 05/19/24 15:24 85 05/19/24 15:10 79 18 92 Nasal Cannula 05/19/24 12:00 36.5 C 84 16 93/53 L 90 Nasal Cannula 05/19/24 11:01 71 05/19/24 11:00 103 H 21 93 Nasal Cannula 05/19/24 07:53 37 C 72 20 97/62 L 91 Nasal Cannula 05/19/24 07:33 Nasal Cannula 05/19/24 07:21 78 18 90 Nasal Cannula 05/19/24 04:12 36.6 C 71 18 95/60 L 90 Nasal Cannula O2 Flow Rate 05/19/24 15:34 2 05/19/24 15:24 05/19/24 15:10 2 05/19/24 12:00 2 05/19/24 11:01 05/19/24 11:00 2 05/19/24 07:53 2 05/19/24 07:33 2 05/19/24 07:21 2 05/19/24 04:12 2 Medications Administered Home Medications Medication Instructions Recorded Confirmed Last Taken atenolol 25 mg tablet 25 mg PO QAM 10/09/18 05/16/24 Unknown azelastine 137 mcg (0.1 %) nasal 2 spray intranasal BID 10/09/18 05/16/24 Unknown spray calcium carbonate 500 mg PO 5XD PRN Gi Upset 10/09/18 05/16/24 Unknown cholecalciferol (vitamin D3) 1,250 50,000 unit PO WK 10/09/18 05/16/24 Unknown mcg (50,000 unit) tablet clotrimazole 10 mg tyrell 10 mg mucous membrane 5XD PRN 10/09/18 05/16/24 Unknown THRUSH furosemide 20 mg tablet 20 mg PO DAILY 10/09/18 05/16/24 Unknown gabapentin 300 mg capsule 300 mg PO USEASDIRECTD 10/09/18 05/16/24 Unknown ipratropium bromide 0.02 % 2.5 ml continuous nebulization Q4H 10/09/18 05/16/24 Unknown solution for inhalation PRN Shortness Of Breath Or Wheezing levalbuterol HCl 1.25 mg/3 mL 1.25 mg inhalation QID PRN 10/09/18 05/16/24 Unknown solution for nebulization Shortness Of Breath Or Wheezing levocetirizine 5 mg tablet 5 mg PO PM 10/09/18 05/16/24 Unknown levothyroxine 75 mcg tablet 75 mcg PO QAM 10/09/18 05/16/24 Unknown lisinopril 10 mg tablet 10 mg PO DAILY 10/09/18 05/16/24 Unknown montelukast 10 mg tablet 10 mg PO HS 10/09/18 05/16/24 Unknown nitroglycerin 0.4 mg sublingual 0.4 mg sublingual UD PRN Chest Pain 10/09/18 05/16/24 Unknown tablet (Nitrostat) pantoprazole 40 mg tablet,delayed 40 mg PO QAM 10/09/18 05/16/24 Unknown release paroxetine HCl 40 mg tablet 40 mg PO QAM 10/09/18 05/16/24 Unknown potassium chloride 10 mEq 10 meq PO BIDM 10/09/18 05/16/24 Unknown tablet,extended release(part/cryst) ropinirole 0.25 mg tablet 0.25 mg PO HS 10/09/18 05/16/24 Unknown aspirin 81 mg capsule 81 mg PO QAM 01/27/22 05/16/24 Unknown benzonatate 100 mg capsule 100 mg PO BID PRN Cough 01/27/22 05/16/24 Unknown guaifenesin 600 mg tablet, 600 mg PO BID PRN Cough 01/27/22 05/16/24 Unknown extended release 12 hr (Mucinex) albuterol sulfate 90 mcg/actuation 2 puff inhalation QID PRN 05/16/24 05/16/24 Unknown aerosol inhaler SOB/Wheezing alendronate 70 mg tablet 70 mg PO QAM 05/16/24 05/16/24 Unknown atorvastatin 40 mg tablet 40 mg PO HS 05/16/24 05/16/24 Unknown fluticasone fur. 200 mcg-umeclid 1 inh inhalation DAILY 05/16/24 05/16/24 Unknown 62.5 mcg-vilant 25 mcg inhalat.powder (Trelegy Ellipta) lidocaine 5 % topical patch 1 patch topical DAILY PRN Pain 05/16/24 05/16/24 Unknown (Lidoderm) linagliptin 5 mg tablet (Tradjenta) 5 mg PO QAM 05/16/24 05/16/24 Unknown Active Medications Generic Name Dose Route Start Last Admin Trade Name Freq PRN Reason Stop Dose Admin Acetaminophen 650 mg 05/16/24 15:45 05/18/24 20:07 Acetaminophen 325 Mg Tab PO 06/15/24 15:44 650 mg Q4H PRN Administration pain/fever Albuterol 3 ml 05/16/24 19:00 05/19/24 15:09 Albut/Ipratrop 3mg/0.5mg Neb 3 Ml Vial NEB 06/15/24 18:59 3 ml Q4R CHRISTINA Administration Protocol Aspirin 81 mg 05/17/24 09:00 05/19/24 08:19 Aspirin 81 Mg Ectab PO 06/16/24 08:59 81 mg QAM CHRISTINA Administration Atorvastatin Calcium 40 mg 05/16/24 21:00 05/18/24 20:03 Atorvastatin 40 Mg Tab PO 06/15/24 20:59 40 mg HS CHRISTINA Administration Azelastine HCl 2 sprays 05/16/24 21:00 05/19/24 08:23 Azelastine Hcl 0.1% Nasal 200 Sprays/27,400 Mcg Btl NA 06/15/24 20:59 2 sprays BID CHRISTINA Administration Benzonatate 100 mg 05/17/24 09:27 05/17/24 18:01 Benzonatate 100 Mg Capsule PO 06/16/24 09:26 100 mg TID PRN Administration cough Cetirizine HCl 10 mg 05/16/24 21:00 05/18/24 20:03 Cetirizine Hcl 10 Mg Tablet PO 06/15/24 20:59 10 mg HS CHRISTINA Administration Fluticasone Furoate 1 puffs 05/17/24 09:00 05/19/24 08:22 Fluticasone Furoate 200mcg 14 Puffs/Inhaler INH 06/16/24 08:59 1 puffs DAILY CHRISTINA Administration Furosemide 20 mg 05/17/24 09:00 05/18/24 08:19 Furosemide 20 Mg Tab PO 06/16/24 08:59 20 mg DAILY CHRISTINA Administration Gabapentin 300 mg 05/16/24 16:00 05/19/24 13:51 Gabapentin 300 Mg Cap PO 06/15/24 15:59 300 mg BID@0900,1400 CHRISTINA Administration Gabapentin 300 mg 05/16/24 21:00 05/18/24 20:02 Gabapentin 300 Mg Cap PO 06/15/24 20:59 300 mg HS CHRISTINA Administration Heparin Sodium (Porcine) 5,000 units 05/16/24 21:00 05/19/24 09:36 Heparin Sod 5,000 Unit/0.5 Ml Vial SQ 06/15/24 20:59 5,000 units Q12 CHRISTINA Administration Insulin Aspart 0 units 05/16/24 16:30 05/19/24 12:51 Insulin Aspart Per Unit Charge SC 06/15/24 16:29 3 units ACHS CHRISTINA Administration Levothyroxine Sodium 75 mcg 05/17/24 06:30 05/19/24 06:36 Levothyroxine Sodium 75 Mcg Tablet PO 06/16/24 06:29 75 mcg DAILYBB CHRISTINA Administration Montelukast Sodium 10 mg 05/16/24 21:00 05/18/24 20:05 Montelukast Sodium 10 Mg Tablet PO 06/15/24 20:59 10 mg HS CHRISTINA Administration Pantoprazole Sodium 40 mg 05/17/24 09:00 05/19/24 08:21 Pantoprazole 40 Mg Tab PO 06/16/24 08:59 40 mg QAM CHRISTINA Administration Paroxetine HCl 40 mg 05/17/24 09:00 05/19/24 08:20 Paroxetine Hcl 20 Mg Tab PO 06/16/24 08:59 40 mg QAM CHRISTINA Administration Potassium Chloride 10 meq 05/16/24 17:00 05/19/24 09:36 Potassium Chloride 10 Meq Tabcr PO 06/15/24 16:59 10 meq BIDM CHRISTINA Administration Ropinirole HCl 0.25 mg 05/16/24 21:00 05/18/24 20:05 Ropinirole Hcl 0.25 Mg Tablet PO 06/15/24 20:59 0.25 mg HS CHRISTINA Administration Umeclidinium/Vilanterol 1 puffs 05/17/24 09:00 05/19/24 08:23 Umeclidinium/Vilanterol 62.5/25mcg 7 Puffs/Inhaler INH 06/16/24 08:59 1 puffs DAILY CHRISTINA Administration
[2024-05-20 06:55] LABS: Hematocrit (blood only) 36.5 % (37.0-47.0); Mean Corpuscular Hemoglobin 31.6 pg (25.0-34.0); Mean Corpuscular Hgb Conc 32.9 g/dL (32.0-36.0); Mean Corpuscular Volume 96.1 fL (80.0-100.0); Mean Platelet Volume 10.7 fL (9.4-12.4); Platelet Count 276 K/uL (130-400); RDW Coefficient of Variation 13.3 % (11.5-14.5); RDW Standard Deviation 47.8 fL (36.4-46.3); White Blood Count 8.49 K/ul (4.8-10.8)
[2024-05-20] MEDS: tiZANidine HCL 4 MG TABLET PO PRN (07:26)
[2024-05-20 07:37] LABS: Calcium 9.1 mg/dl (8.6-10.3); Magnesium 1.9 mg/dl (1.7-2.4); Potassium 3.9 mmol/L (3.5-5.1)
[2024-05-20 07:43] LABS: Creatinine Clr Calc Pharmacy 32.9 ml/min; Est GFR (African American) 34.1 ml/min; Est GFR (Non-African American) 29.4 ml/min; Phosphorus 3.7 mg/dl (2.5-4.9)
--- NOTE | 2024-05-20 09:08 | Hospitalist Progress Note ---
Date of Service May 20, 2024 Assessment & Plan (1) Syncope and collapse: Plan Ms. Danni Patricio is a 73y/o woman with PMHx of DM type II, CKD stage III, hypothyroidism, HLD, COPD, chronic respiratory failure with hypoxia, systolic heart failure due to idiopathic cardiomyopathy, HTN, vitamin D deficiency, GERD without esophagitis, osteoarthritis, macular degeneration, anxiety/depression, tobacco use disorder and other problems admitted for syncope evaluation. Patient reports sudden BLE weakness and "blacking out." Patient reports feeling well today, however has yet to ambulate since admission. Denies presyncopal episodes previously Plan to downgrade from tele to med/surg while awaiting placement Pending discharge to rehab #Syncope & Collapse: Head & neck CTA negative. Brain MRI without evidence of acute infarct ECHO 05/16 EF 55-60%, poorly visualized anatomy however no apparent significant stenosis Neuro consult pending, however, suspicious for either medication related (BP in 120s without lisinopril) v vasovagal 2/2 pain -No eeg required -Should consider sleep study as OP r/o MIHAI -ZIO patch as an outpatient PT/OT evals: rehab Urine culture and blood culture NGTD [place] Dot form submitted Hold furosemide, lisinopril and atenolol -No active swelling, no signs of infection, patient eating well and stable -Blood pressures stable without antihypertensives stop abx #CKD stage III Cr. 1.71 elevated bun, encourgae po, if uptrending may consider resumption of lasix CTM #LLE Wounds: Sustained from patient's previous fall on Wednesday as per HPI. Wounds w/ surrounding erythema and warmth to touch on exam, WBC 13k. UA still pending. MRSA swab negative, no growth on culture #R knee Hemarthrosis # L Foot Pain & ecchymosis 2/2 mechanical falls RLE arterial duplex US w/o any significant stenosis. CTA abd aorta w/ runoff without stenosis R knee joint effusion noted on R knee XR, no fx's were noted. Ortho consult: s/p aspiration of 48cc blood, cultures sent 05/16 Continue with ice and elevation L foot XR w/ no acute fx or dislocation, but does note a possible punctate foreign body. Podiatry consult pending. #HTN Monitor BP Hold lisinopril 10mg hold Atenolol 25mg Hold furosemide #COPD, Chronic Respiratory Failure w/ Hypoxia: CXR & RVP both negative. Notable expiratory wheezing heard on exam. Scheduled Duonebs ordered. Uses 2L O2 HS at baseline - ordered. Continue home meds. 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 SSI regimen while inpatient. BSG checks ACHS. 6.5% 05/17/2024 Other Chronic Medical Conditions: GERD, hypothyroidism, osteoarthritis, HLD, seasonal allergies, anxiety/depression --> Can continue home meds for these specific conditions. DVT Prophylaxis: SQ Heparin Code Status: FULL CODE PCP: Franca Lilly MD Disposition: Admit to Med/Surg + Telemetry Admission and Anticipated Discharge Date Admission Date: May 16, 2024 Subjective NAEO Reports intermittent RLE cramping but other [place] feels motivated Denies chest pain, presyncope, dizziness or other acute concerns Physical Exam Constitutional: WD/WN, vitals as above Respiratory: normal respiratory effort, lungs clear to auscultation Cardiovascular: RRR, no murmur, no edema Gastrointestinal (Abdomen): normal bowel sounds, soft, nontender, no hepatosplenomegaly Musculoskeletal: RLE hinge brace in place, sensation and motor intact Results & Data Results & Data Vital Signs (Past 12 Hours) Vital Signs Temp Pulse Pulse Pulse Resp BP BP 05/20/24 07:37 67 05/20/24 07:36 36.6 C 76 16 104/64 05/20/24 07:36 74 18 05/20/24 03:43 72 18 05/20/24 02:16 36.7 C 73 16 110/62 05/19/24 23:57 05/19/24 23:13 73 05/19/24 22:23 18 05/19/24 22:16 37.1 C 72 18 116/64 Pulse Ox O2 Del Method O2 Flow Rate 05/20/24 07:37 05/20/24 07:36 93 Room Air 05/20/24 07:36 92 Nasal Cannula 3 05/20/24 03:43 92 Nasal Cannula 2 05/20/24 02:16 92 Room Air 05/19/24 23:57 Nasal Cannula 2 05/19/24 23:13 05/19/24 22:23 93 Room Air, Nasal Cannula 2 05/19/24 22:16 93 Nasal Cannula 2 Laboratory Results Short CBC 05/20/24 Range/Units 05:58 WBC 8.49 (4.8-10.8) K/ul Hgb 12.0 (12.0-16.0) g/dl Hct 36.5 L (37.0-47.0) % Plt Count 276 (130-400) K/uL [facility] 05/20/24 05:58 Sodium 139 Potassium 3.9 Chloride 106 Carbon Dioxide 26 BUN 29 H Creatinine 1.71 H Glucose 98 Calcium 9.1 Medications Administered Home Medications Medication Instructions Recorded Confirmed Last Taken atenolol 25 mg tablet 25 mg PO QAM 10/09/18 05/16/24 Unknown azelastine 137 mcg (0.1 %) nasal 2 spray intranasal BID 10/09/18 05/16/24 Unknown spray calcium carbonate 500 mg PO 5XD PRN Gi Upset 10/09/18 05/16/24 Unknown cholecalciferol (vitamin D3) 1,250 50,000 unit PO WK 10/09/18 05/16/24 Unknown mcg (50,000 unit) tablet clotrimazole 10 mg tyrell 10 mg mucous membrane 5XD PRN 10/09/18 05/16/24 Unknown THRUSH furosemide 20 mg tablet 20 mg PO DAILY 10/09/18 05/16/24 Unknown gabapentin 300 mg capsule 300 mg PO USEASDIRECTD 10/09/18 05/16/24 Unknown ipratropium bromide 0.02 % 2.5 ml continuous nebulization Q4H 10/09/18 05/16/24 Unknown solution for inhalation PRN Shortness Of Breath Or Wheezing levalbuterol HCl 1.25 mg/3 mL 1.25 mg inhalation QID PRN 10/09/18 05/16/24 Unk nown solution for nebulization Shortness Of Breath Or Wheezing levocetirizine 5 mg tablet 5 mg PO PM 10/09/18 05/16/24 Unknown levothyroxine 75 mcg tablet 75 mcg PO QAM 10/09/18 05/16/24 Unknown lisinopril 10 mg tablet 10 mg PO DAILY 10/09/18 05/16/24 Unknown montelukast 10 mg tablet 10 mg PO HS 10/09/18 05/16/24 Unknown nitroglycerin 0.4 mg sublingual 0.4 mg sublingual UD PRN Chest Pain 10/09/18 05/16/24 Unknown tablet (Nitrostat) pantoprazole 40 mg tablet,delayed 40 mg PO QAM 10/09/18 05/16/24 Unknown release paroxetine HCl 40 mg tablet 40 mg PO QAM 10/09/18 05/16/24 Unknown potassium chloride 10 mEq 10 meq PO BIDM 10/09/18 05/16/24 Unknown tablet,extended release(part/cryst) ropinirole 0.25 mg tablet 0.25 mg PO HS 10/09/18 05/16/24 Unknown aspirin 81 mg capsule 81 mg PO QAM 01/27/22 05/16/24 Unknown benzonatate 100 mg capsule 100 mg PO BID PRN Cough 01/27/22 05/16/24 Unknown guaifenesin 600 mg tablet, 600 mg PO BID PRN Cough 01/27/22 05/16/24 Unknown extended release 12 hr (Mucinex) albuterol sulfate 90 mcg/actuation 2 puff inhalation QID PRN 05/16/24 05/16/24 Unknown aerosol inhaler SOB/Wheezing alendronate 70 mg tablet 70 mg PO QAM 05/16/24 05/16/24 Unknown atorvastatin 40 mg tablet 40 mg PO HS 05/16/24 05/16/24 Unknown fluticasone fur. 200 mcg-umeclid 1 inh inhalation DAILY 05/16/24 05/16/24 Unknown 62.5 mcg-vilant 25 mcg inhalat.powder (Trelegy Ellipta) lidocaine 5 % topical patch 1 patch topical DAILY PRN Pain 05/16/24 05/16/24 Unknown (Lidoderm) linagliptin 5 mg tablet (Tradjenta) 5 mg PO QAM 05/16/24 05/16/24 Unknown Active Medications Generic Name Dose Route Start Last Admin Trade Name Freq PRN Reason Stop Dose Admin Acetaminophen 650 mg 05/16/24 15:45 05/20/24 06:29 Acetaminophen 325 Mg Tab PO 06/15/24 15:44 650 mg Q4H PRN Administration pain/fever Albuterol 3 ml 05/16/24 19:00 05/20/24 07:36 Albut/Ipratrop 3mg/0.5mg Neb 3 Ml Vial NEB 06/15/24 18:59 3 ml Q4R CHRISTINA Administration Protocol Aspirin 81 mg 05/17/24 09:00 05/20/24 07:26 Aspirin 81 Mg Ectab PO 06/16/24 08:59 81 mg QAM CHRISTINA Administration Atorvastatin Calcium 40 mg 05/16/24 21:00 05/19/24 19:52 Atorvastatin 40 Mg Tab PO 06/15/24 20:59 40 mg HS CHRISTINA Administration Azelastine HCl 2 sprays 05/16/24 21:00 05/20/24 07:29 Azelastine Hcl 0.1% Nasal 200 Sprays/27,400 Mcg Btl NA 06/15/24 20:59 2 sprays BID CHRISTINA Administration Benzonatate 100 mg 05/17/24 09:27 05/19/24 19:53 Benzonatate 100 Mg Capsule PO 06/16/24 09:26 100 mg TID PRN Administration cough Cetirizine HCl 10 mg 05/16/24 21:00 05/19/24 19:52 Cetirizine Hcl 10 Mg Tablet PO 06/15/24 20:59 10 mg HS CHRISTINA Administration Fluticasone Furoate 1 puffs 05/17/24 09:00 05/20/24 07:28 Fluticasone Furoate 200mcg 14 Puffs/Inhaler INH 06/16/24 08:59 1 puffs DAILY CHRISTINA Administration Furosemide 20 mg 05/17/24 09:00 05/18/24 08:19 Furosemide 20 Mg Tab PO 06/16/24 08:59 20 mg DAILY CHRISTINA Administration Gabapentin 300 mg 05/16/24 16:00 05/20/24 07:27 Gabapentin 300 Mg Cap PO 06/15/24 15:59 300 mg BID@0900,1400 CHRISTINA Administration Gabapentin 300 mg 05/16/24 21:00 05/19/24 19:52 Gabapentin 300 Mg Cap PO 06/15/24 20:59 300 mg HS CHRISTINA Administration Heparin Sodium (Porcine) 5,000 units 05/16/24 21:00 05/19/24 19:53 Heparin Sod 5,000 Unit/0.5 Ml Vial SQ 06/15/24 20:59 5,000 units Q12 CHRISTINA Administration Insulin Aspart 0 units 05/16/24 16:30 05/19/24 19:52 Insulin Aspart Per Unit Charge SC 06/15/24 16:29 Not Given ACHS CHRISTINA Levothyroxine Sodium 75 mcg 05/17/24 06:30 05/20/24 06:30 Levothyroxine Sodium 75 Mcg Tablet PO 06/16/24 06:29 75 mcg DAILYBB CHRISTINA Administration Montelukast Sodium 10 mg 05/16/24 21:00 05/19/24 19:53 Montelukast Sodium 10 Mg Tablet PO 06/15/24 20:59 10 mg HS CHRISTINA Administration Pantoprazole Sodium 40 mg 05/17/24 09:00 05/20/24 07:28 Pantoprazole 40 Mg Tab PO 06/16/24 08:59 40 mg QAM CHRISTINA Administration Paroxetine HCl 40 mg 05/17/24 09:00 05/20/24 07:27 Paroxetine Hcl 20 Mg Tab PO 06/16/24 08:59 40 mg QAM CHRISTINA Administration Potassium Chloride 10 meq 05/16/24 17:00 05/19/24 17:28 Potassium Chloride 10 Meq Tabcr PO 06/15/24 16:59 10 meq BIDM CHRISTINA Administration Ropinirole HCl 0.25 mg 05/16/24 21:00 05/19/24 19:53 Ropinirole Hcl 0.25 Mg Tablet PO 06/15/24 20:59 0.25 mg HS CHRISTINA Administration Tizanidine HCl 2 mg 05/20/24 00:43 05/20/24 07:26 Tizanidine Hcl 4 Mg Tablet PO 06/19/24 08:59 2 mg TID PRN Administration spasm Umeclidinium/Vilanterol 1 puffs 05/17/24 09:00 05/20/24 07:28 Umeclidinium/Vilanterol 62.5/25mcg 7 Puffs/Inhaler INH 06/16/24 08:59 1 puffs DAILY CHRISTINA Administration
[2024-05-20] MEDS ORDERED: guaiFENesin 600 MG TABCR PO PRN (09:13)
[2024-05-20 22:27] LABS: Lyme DNA PCR CSF or Synovial Not Detected (Not Detected); Lyme DNA Source SYNOVIAL FLUID
[2024-05-21 06:50] LABS: Hematocrit (blood only) 36.9 % (37.0-47.0); Hemoglobin 11.8 g/dl (12.0-16.0); Mean Corpuscular Hemoglobin 31.2 pg (25.0-34.0); Mean Corpuscular Volume 97.6 fL (80.0-100.0); Mean Platelet Volume 9.9 fL (9.4-12.4); Platelet Count 313 K/uL (130-400); RDW Coefficient of Variation 13.6 % (11.5-14.5); RDW Standard Deviation 48.1 fL (36.4-46.3); Red Blood Count 3.78 M/uL (4.20-5.40); White Blood Count 8.39 K/ul (4.8-10.8)
[2024-05-21 07:14] LABS: BUN Creatinine Ratio 21.3 (10-20); Calcium 9.1 mg/dl (8.6-10.3); Creatinine Clr Calc Pharmacy 39.9 ml/min; Est GFR (Non-African American) 37.1 ml/min; Magnesium 2.1 mg/dl (1.7-2.4); Phosphorus 4.1 mg/dl (2.5-4.9); Potassium 4.1 mmol/L (3.5-5.1)
--- NOTE | 2024-05-21 07:42 | Hospitalist Progress Note ---
Date of Service May 21, 2024 Assessment & Plan (1) Syncope and collapse: Plan Ms. Danni Patricio is a 73y/o woman with PMHx of DM type II, CKD stage III, hypothyroidism, HLD, COPD, chronic respiratory failure with hypoxia, systolic heart failure due to idiopathic cardiomyopathy, HTN, vitamin D deficiency, GERD without esophagitis, osteoarthritis, macular degeneration, anxiety/depression, tobacco use disorder and other problems admitted for syncope evaluation. Patient reports sudden BLE weakness and "blacking out." Patient reports feeling well today, however has yet to ambulate since admission. Denies presyncopal episodes previously Patient's hospitalization remains uncomplicated thus far. Pending discharge to rehab #Syncope & Collapse: Head & neck CTA negative. Brain MRI without evidence of acute infarct ECHO 05/16 EF 55-60%, poorly visualized anatomy however no apparent significant stenosis Neuro consult however, suspicious for either medication related (BP in 120s without lisinopril) v vasovagal 2/2 pain -No eeg required -Should consider sleep study as OP r/o MIHAI -ZIO patch as an outpatient PT/OT evals: rehab Urine culture and blood culture NGTD [place] Dot form submitted Hold furosemide, lisinopril and atenolol -No active swelling, no signs of infection, patient eating well and stable -Blood pressures stable without antihypertensives stop abx #CKD stage III Cr. 1.71 elevated bun, encourgae po, if uptrending may consider resumption of lasix CTM #LLE Wounds: Sustained from patient's previous fall on Wednesday as per HPI. Wounds w/ surrounding erythema and warmth to touch on exam, WBC 13k. UA still pending. MRSA swab negative, no growth on culture #R knee Hemarthrosis # L Foot Pain & ecchymosis 2/2 mechanical falls RLE arterial duplex US w/o any significant stenosis. CTA abd aorta w/ runoff without stenosis R knee joint effusion noted on R knee XR, no fx's were noted. Ortho consult: s/p aspiration of 48cc blood, cultures sent 05/16 Continue with ice and elevation L foot XR w/ no acute fx or dislocation, but does note a possible punctate foreign body. Podiatry consult pending. #HTN Monitor BP Hold lisinopril 10mg hold Atenolol 25mg resume furosemide #COPD, Chronic Respiratory Failure w/ Hypoxia: CXR & RVP both negative. Notable expiratory wheezing heard on exam. Scheduled Duonebs ordered. Uses 2L O2 HS at baseline - ordered. Continue home meds. 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 SSI regimen while inpatient. BSG checks ACHS. 6.5% 05/17/2024 Other Chronic Medical Conditions: GERD, hypothyroidism, osteoarthritis, HLD, seasonal allergies, anxiety/depression --> Can continue home meds for these specific conditions. DVT Prophylaxis: SQ Heparin Code Status: FULL CODE PCP: Franca Lilly MD Disposition: Admit to Med/Surg + Telemetry Admission and Anticipated Discharge Date Admission Date: May 16, 2024 Subjective MARIAMO Reports some frustration with the knee immobilzer, but excited that she stood twice today Physical Exam Constitutional: WD/WN, vitals as above Respiratory: normal respiratory effort, lungs clear to auscultation (stable O2 requirements, dry chronic cough ) Cardiovascular: RRR, no murmur, no edema Gastrointestinal (Abdomen): normal bowel sounds, soft, nontender, no hepatosplenomegaly Results & Data Results & Data Vital Signs (Past 12 Hours) Vital Signs Temp Pulse Pulse Resp BP Pulse Ox O2 Del Method 05/21/24 07:34 81 18 93 Nasal Cannula 05/21/24 03:04 67 18 93 Nasal Cannula 05/20/24 23:49 36.8 C 83 18 116/66 93 Nasal Cannula 05/20/24 22:45 75 18 92 Nasal Cannula O2 Flow Rate 05/21/24 07:34 3 05/21/24 03:04 3 05/20/24 23:49 3 05/20/24 22:45 3 Laboratory Results Short CBC 05/21/24 Range/Units 06:12 WBC 8.39 (4.8-10.8) K/ul Hgb 11.8 L (12.0-16.0) g/dl Hct 36.9 L (37.0-47.0) % Plt Count 313 (130-400) K/uL BMP 05/20/24 05/21/24 05:58 06:12 Sodium 139 Potassium 4.1 Chloride 107 Carbon Dioxide 26 BUN 29 H 30 H Creatinine 1.71 H 1.41 H D Glucose 98 100 H Calcium 9.1 Medications Administered Home Medications Medication Instructions Recorded Confirmed Last Taken atenolol 25 mg tablet 25 mg PO QAM 10/09/18 05/16/24 Unknown azelastine 137 mcg (0.1 %) nasal 2 spray intranasal BID 10/09/18 05/16/24 Unknown spray calcium carbonate 500 mg PO 5XD PRN Gi Upset 10/09/18 05/16/24 Unknown cholecalciferol (vitamin D3) 1,250 50,000 unit PO WK 10/09/18 05/16/24 Unknown mcg (50,000 unit) tablet clotrimazole 10 mg tyrell 10 mg mucous membrane 5XD PRN 10/09/18 05/16/24 Unknown THRUSH furosemide 20 mg tablet 20 mg PO DAILY 10/09/18 05/16/24 Unknown gabapentin 300 mg capsule 300 mg PO USEASDIRECTD 10/09/18 05/16/24 Unknown ipratropium bromide 0.02 % 2.5 ml continuous nebulization Q4H 10/09/18 05/16/24 Unknown solution for inhalation PRN Shortness Of Breath Or Wheezing levalbuterol HCl 1.25 mg/3 mL 1.25 mg inhalation QID PRN 10/09/18 05/16/24 Unknown solution for nebulization Shortness Of Breath Or Wheezing levocetirizine 5 mg tablet 5 mg PO PM 10/09/18 05/16/24 Unknown levothyroxine 75 mcg tablet 75 mcg PO QAM 10/09/18 05/16/24 Unknown lisinopril 10 mg tablet 10 mg PO DAILY 10/09/18 05/16/24 Unknown montelukast 10 mg tablet 10 mg PO HS 10/09/18 05/16/24 Unknown nitroglycerin 0.4 mg sublingual 0.4 mg sublingual UD PRN Chest Pain 10/09/18 05/16/24 Unknown tablet (Nitrostat) pantoprazole 40 mg tablet,delayed 40 mg PO QAM 10/09/18 05/16/24 Unknown release paroxetine HCl 40 mg tablet 40 mg PO QAM 10/09/18 05/16/24 Unknown potassium chloride 10 mEq 10 meq PO BIDM 10/09/18 05/16/24 Unknown tablet,extended release(part/cryst) ropinirole 0.25 mg tablet 0.25 mg PO HS 10/09/18 05/16/24 Unknown aspirin 81 mg capsule 81 mg PO QAM 01/27/22 05/16/24 Unknown benzonatate 100 mg capsule 100 mg PO BID PRN Cough 01/27/22 05/16/24 Unknown guaifenesin 600 mg tablet, 600 mg PO BID PRN Cough 01/27/22 05/16/24 Unknown extended release 12 hr (Mucinex) albuterol sulfate 90 mcg/actuation 2 puff inhalation QID PRN 05/16/24 05/16/24 Unknown aerosol inhaler SOB/Wheezing alendronate 70 mg tablet 70 mg PO QAM 05/16/24 05/16/24 Unknown atorvastatin 40 mg tablet 40 mg PO HS 05/16/24 05/16/24 Unknown fluticasone fur. 200 mcg-umeclid 1 inh inhalation DAILY 05/16/24 05/16/24 Unknown 62.5 mcg-vilant 25 mcg inhalat.powder (Trelegy Ellipta) lidocaine 5 % topical patch 1 patch topical DAILY PRN Pain 05/16/24 05/16/24 Unknown (Lidoderm) linagliptin 5 mg tablet (Tradjenta) 5 mg PO QAM 05/16/24 05/16/24 Unknown Active Medications Generic Name Dose Route Start Last Admin Trade Name Freq PRN Reason Stop Dose Admin Acetaminophen 650 mg 05/16/24 15:45 05/20/24 20:42 Acetaminophen 325 Mg Tab PO 06/15/24 15:44 650 mg Q4H PRN Administration pain/fever Albuterol 3 ml 05/16/24 19:00 05/21/24 07:34 Albut/Ipratrop 3mg/0.5mg Neb 3 Ml Vial NEB 06/15/24 18:59 3 ml Q4R CHRISTINA Administration Protocol Aspirin 81 mg 05/17/24 09:00 05/20/24 07:26 Aspirin 81 Mg Ectab PO 06/16/24 08:59 81 mg QAM CHRISTINA Administration Atorvastatin Calcium 40 mg 05/16/24 21:00 05/20/24 20:42 Atorvastatin 40 Mg Tab PO 06/15/24 20:59 40 mg HS CHRISTINA Administration Azelastine HCl 2 sprays 05/16/24 21:00 05/20/24 20:43 Azelastine Hcl 0.1% Nasal 200 Sprays/27,400 Mcg Btl NA 06/15/24 20:59 2 sprays BID CHRISTINA Administration Benzonatate 100 mg 05/17/24 09:27 05/20/24 21:11 Benzonatate 100 Mg Capsule PO 06/16/24 09:26 100 mg TID PRN Administration cough Cetirizine HCl 10 mg 05/16/24 21:00 05/20/24 20:42 Cetirizine Hcl 10 Mg Tablet PO 06/15/24 20:59 10 mg HS CHRISTINA Administration Fluticasone Furoate 1 puffs 05/17/24 09:00 05/20/24 07:28 Fluticasone Furoate 200mcg 14 Puffs/Inhaler INH 06/16/24 08:59 1 puffs DAILY CHRISTINA Administration Furosemide 20 mg 05/17/24 09:00 05/18/24 08:19 Furosemide 20 Mg Tab PO 06/16/24 08:59 20 mg DAILY CHRISTINA Administration Gabapentin 300 mg 05/16/24 16:00 05/20/24 13:29 Gabapentin 300 Mg Cap PO 06/15/24 15:59 300 mg BID@0900,1400 CHRISTINA Administration Gabapentin 300 mg 05/16/24 21:00 05/20/24 20:42 Gabapentin 300 Mg Cap PO 06/15/24 20:59 300 mg HS CHRISTINA Administration Heparin Sodium (Porcine) 5,000 units 05/16/24 21:00 05/20/24 20:42 Heparin Sod 5,000 Unit/0.5 Ml Vial SQ 06/15/24 20:59 5,000 units Q12 CHRISTINA Administration Insulin Aspart 0 units 05/16/24 16:30 05/20/24 20:44 Insulin Aspart Per Unit Charge SC 06/15/24 16:29 Not Given ACHS CHRISTINA Levothyroxine Sodium 75 mcg 05/17/24 06:30 05/21/24 05:28 Levothyroxine Sodium 75 Mcg Tablet PO 06/16/24 06:29 75 mcg DAILYBB CHRISTINA Administration Montelukast Sodium 10 mg 05/16/24 21:00 05/20/24 20:42 Montelukast Sodium 10 Mg Tablet PO 06/15/24 20:59 10 mg HS CHRISTINA Administration Pantoprazole Sodium 40 mg 05/17/24 09:00 05/20/24 07:28 Pantoprazole 40 Mg Tab PO 06/16/24 08:59 40 mg QAM CHRISTINA Administration Paroxetine HCl 40 mg 05/17/24 09:00 05/20/24 07:27 Paroxetine Hcl 20 Mg Tab PO 06/16/24 08:59 40 mg QAM CHRISTINA Administration Ropinirole HCl 0.25 mg 05/16/24 21:00 05/20/24 20:42 Ropinirole Hcl 0.25 Mg Tablet PO 06/15/24 20:59 0.25 mg HS CHRISTINA Administration Tizanidine HCl 2 mg 05/20/24 00:43 05/20/24 07:26 Tizanidine Hcl 4 Mg Tablet PO 06/19/24 08:59 2 mg TID PRN Administration spasm Umeclidinium/Vilanterol 1 puffs 05/17/24 09:00 05/20/24 07:28 Umeclidinium/Vilanterol 62.5/25mcg 7 Puffs/Inhaler INH 06/16/24 08:59 1 puffs DAILY CHRISTINA Administration
[2024-05-21] MEDS: ERGOCALCIFEROL 1250 MCG (50,000 UNITS) CAP PO SCH (09:44)
[2024-05-21] MEDS: ALENDRONATE SODIUM 70 MG TAB PO SCH (09:44)
[2024-05-21] MEDS: LORATADINE 10 MG TAB PO ONE (17:47)
[2024-05-21] MEDS: FLUTICASONE PROPIONATE NA SPR 16 GM BTL SCH (17:47)
[2024-05-22] MEDS: ALBUT/IPRATROP 3MG/0.5MG NEB 3 ML VIAL NEB PRN (14:43)
[2024-05-22 15:49] VITALS: BP 121/69; RESP 19; TEMP 97.9; O2SAT 94
--- NOTE | 2024-05-22 15:49 | Discharge Summary ---
Discharge Summary Date of Service May 22, 2024 Principal Dx & Hospital Course #1 = Principal Diagnosis (1) Syncope and collapse: Plan Ms. Danni Patricio is a 73y/o woman with PMHx of DM type II, CKD stage III, hypothyroidism, HLD, COPD, chronic respiratory failure with hypoxia, systolic heart failure due to idiopathic cardiomyopathy, HTN, vitamin D deficiency, GERD without esophagitis, osteoarthritis, macular degeneration, anxiety/depression, tobacco use disorder and other problems admitted for syncope evaluation. Patient reports sudden BLE weakness and "blacking out." Denies presyncopal episodes previously. Patient's bp noted to be persistently low in 90-100s without lisinopril or atenolol. Patient's hospitalization remained uncomplicated. Patient with hemarthrosis related to left tibial plateau fracture, as well as right ankle sprain. left knee immobilized and right foot in high tide cam boot while ambulating. Patient's pain controlled, but mostly experiences spasms resolved with tizanidine. On day of discharge, patient doing well overall without acute concerns and ready for rehab. #Syncope & Collapse: Head & neck CTA negative. Brain MRI without evidence of acute infarct ECHO 05/16 EF 55-60%, poorly visualized anatomy however no apparent significant stenosis Neuro consult however, suspicious for either medication related (BP in 120s without lisinopril) v vasovagal 2/2 pain -No eeg required -Should consider sleep study as OP r/o MIHAI -ZIO patch as an outpatient PT/OT evals: rehab Urine culture and blood culture NGTD [place] Dot form submitted Hold furosemide, lisinopril and atenolol -No active swelling, no signs of infection, patient eating well and stable -Blood pressures stable without antihypertensives #CKD stage III Cr. 1.71 elevated bun, encourgae po, if uptrending may consider resumption of lasix CTM #LLE Wounds: Sustained from patient's previous fall on Wednesday as per HPI. Wounds w/ surrounding erythema and warmth to touch on exam, WBC 13k. UA still pending. MRSA swab negative, no growth on culture #R knee Hemarthrosis # L Foot Pain & ecchymosis 2/2 mechanical falls RLE arterial duplex US w/o any significant stenosis. CTA abd aorta w/ runoff without stenosis R knee joint effusion noted on R knee XR, no fx's were noted. Ortho consult: s/p aspiration of 48cc blood, cultures sent 05/16 Continue with ice and elevation L foot XR w/ no acute fx or dislocation, but does note a possible punctate foreign body. Podiatry consult: no further intervention #HTN Monitor BP Hold lisinopril 10mg hold Atenolol 25mg resume furosemide #COPD, Chronic Respiratory Failure w/ Hypoxia: CXR & RVP both negative. Notable expiratory wheezing heard on exam. Uses 2L O2 HS at baseline Continue home meds. #DM Type II: resume home agents Notes For Next Care Provider Patient's BP consistently 90-100s without antihypertensives [place] form submitted given reported LOC Medication Changes From Visit Stop lisinopril Stop Atenolol Start Tizanidine 4mg q8 hours for muscle spasms Admission HPI Per Admitting Provider Danni Patriico is a 73y/o F with PMHx of DM type II, CKD stage III, hypothyroidism, HLD, COPD, chronic respiratory failure with hypoxia, systolic heart failure due to idiopathic cardiomyopathy, HTN, vitamin D deficiency, GERD without esophagitis, osteoarthritis, macular degeneration, anxiety/depression, tobacco use disorder and other problems listed below who presented to the ED for evaluation after sustaining a syncopal event this morning. History obtained from patient and associated chart review. Patient reports that she was trying to get up out of bed this morning when her legs suddenly "gave out" and she fell to the floor. She states that she "blacked out" during this event. She does not remember if she hit her head or what she may of hit on the way down. She was able to slowly pull herself up onto a nearby couch but reports it was very difficult to get up off of the ground. A family member ended up driving her to the ED. She had a previous fall on Wednesday where she tripped over her dog and landed on her right knee. She did not hit her head during that fall however. She did sustain a cut to her left sanchez region during that fall though. She thinks she may of landed mostly on her left foot this morning - her left foot is very sore and she has some bruising on the lateral aspect as well. Denies any visual changes or lightheadedness/dizziness. No chest pain or SOB. No recent illnesses, but does mention she has chronic post-nasal drip and sinus congestion secondary to allergies. Denies any fevers, chills or body aches. Patients smokes ~0.5 pack/day currently. Admission Exam Per Admitting Provider General: WD/WN, vitals as above, NAD, laying back in bed, pleasant, conversing appropriately. A+Ox3, euthymic affect. HEENT: Normocephalic, atraumatic. PERRL, conjunctivae normal, anicteric sclerae, oropharynx normal. Respiratory: Normal respiratory effort, wheezing heard in all lung whaley. No accessory muscle use or increased work of breathing. Cardiovascular: Regular rate, rhythm, no murmur, normal peripheral pulses, no BLE edema. Vessels: No JVD. Abdomen/GI: Normal bowel sounds, soft, nontender, no hepatosplenomegaly. Extremities/Musculoskeletal: No cyanosis or clubbing, BLE motor strength slightly decreased, bruising over lateral aspect of L foot. Neurologic: EOMI, no focal deficits, CN's II-XI not formally tested but appear grossly intact bilaterally. Skin: No rashes, normal color. R knee is swollen, 2 wounds present on L anterior sanchez region with surrounding erythema and warmth. Discharge Exam Constitutional WD/WN, vitals as above Respiratory normal respiratory effort, lungs clear to auscultation (stable O2 requirements, dry chronic cough ) Cardiovascular RRR, no murmur, no edema Gastrointestinal (Abdomen) normal bowel sounds, soft, nontender, no hepatosplenomegaly Updated Medication List Medication Instructions Recorded Confirmed Type azelastine 137 mcg (0.1 %) nasal 2 spray intranasal BID 10/09/18 05/16/24 History spray calcium carbonate 500 mg PO 5XD PRN Gi Upset 10/09/18 05/16/24 History cholecalciferol (vitamin D3) 1,250 50,000 unit PO WK 10/09/18 05/16/24 History mcg (50,000 unit) tablet clotrimazole 10 mg tyrell 10 mg mucous membrane 5XD PRN 10/09/18 05/16/24 History THRUSH furosemide 20 mg tablet 20 mg PO DAILY 10/09/18 05/16/24 History gabapentin 300 mg capsule 300 mg PO USEASDIRECTD 10/09/18 05/16/24 History ipratropium bromide 0.02 % 2.5 ml continuous nebulization Q4H 10/09/18 05/16/24 History solution for inhalation PRN Shortness Of Breath Or Wheezing levalbuterol HCl 1.25 mg/3 mL 1.25 mg inhalation QID PRN 10/09/18 05/16/24 History solution for nebulization Shortness Of Breath Or Wheezing levocetirizine 5 mg tablet 5 mg PO PM 10/09/18 05/16/24 History levothyroxine 75 mcg tablet 75 mcg PO QAM 10/09/18 05/16/24 History montelukast 10 mg tablet 10 mg PO HS 10/09/18 05/16/24 History nitroglycerin 0.4 mg sublingual 0.4 mg sublingual UD PRN Chest Pain 10/09/18 05/16/24 History tablet (Nitrostat) pantoprazole 40 mg tablet,delayed 40 mg PO QAM 10/09/18 05/16/24 History release paroxetine HCl 40 mg tablet 40 mg PO QAM 10/09/18 05/16/24 History potassium chloride 10 mEq 10 meq PO BIDM 10/09/18 05/16/24 History tablet,extended release(part/cryst) ropinirole 0.25 mg tablet 0.25 mg PO HS 10/09/18 05/16/24 History aspirin 81 mg capsule 81 mg PO QAM 01/27/22 05/16/24 History benzonatate 100 mg capsule 100 mg PO BID PRN Cough 01/27/22 05/16/24 History guaifenesin 600 mg tablet, 600 mg PO BID PRN Cough 01/27/22 05/16/24 History extended release 12 hr (Mucinex) albuterol sulfate 90 mcg/actuation 2 puff inhalation QID PRN 05/16/24 05/16/24 History aerosol inhaler SOB/Wheezing alendronate 70 mg tablet 70 mg PO QAM 05/16/24 05/16/24 History atorvastatin 40 mg tablet 40 mg PO HS 05/16/24 05/16/24 History fluticasone fur. 200 mcg-umeclid 1 inh inhalation DAILY 05/16/24 05/16/24 History 62.5 mcg-vilant 25 mcg inhalat.powder (Trelegy Ellipta) lidocaine 5 % topical patch 1 patch topical DAILY PRN Pain 05/16/24 05/16/24 History (Lidoderm) linagliptin 5 mg tablet (Tradjenta) 5 mg PO QAM 05/16/24 05/16/24 History tizanidine 4 mg tablet 2 mg (1/2 x 4 mg) PO TID PRN 05/22/24 Rx muscle spasticity 30 days #90 tabs Hospital Stay Data Consultations 05/16/24 11:16 ED Decision to Admit Stat 05/16/24 12:40 Consult Orthopedic Surgery Routine 05/16/24 12:44 Consult Neurology Routine 05/16/24 13:24 Consult Podiatry Routine Diagnostic Imagining Performed 05/16/24 08:55 CT angio head w con Stat CT angio neck with con Stat CT head/brain wo con Stat 05/16/24 08:57 US arterial duplex LE RT Stat 05/16/24 12:34 MRI Brain [MR brain wo/w con] Urgent 05/16/24 12:37 CTA abd aorta runof w con [CT ang AA runof w inc wo ifdon] Urgent 05/17/24 10:24 CT knee RT w con Routine Pending Results Patient Have Any Pending Studies at Discharge: No Discharge Instructions Given to Patient (Per Discharging Provider) You were admitted for fall. It was noted that your blood pressures are low and this likely was exacerbated by medications. Please discontinue lisinopril and atenolol You were noted to have a hemarthrosis (blood around the Knee) due to a lateral tibial plateau frature You also had a sprain of your left ankle. Continue with the knee immobilizer and cam boot. Total Time Total Time Spent Total Time Spent (In Minutes): 45
[2024-05-22 16:17] VITALS: PULSE 82
== END 2024-05-22 16:46 | DRG 563 ==
LOC: ED 08:17 → SUATTDRO 12:28 → EDINP 12:28 → 2N 14:22

== ENCOUNTER 2024-05-22 18:56 | Inpatient (IN) ==
--- NOTE | 2024-05-22 19:33 | Emergency Department Note ---
Impression & Plan Bilateral leg pain, Leukocytosis, Debilitated, MANDY (acute kidney injury) ED Provider Note NAME: DEJA LACY AGE: 73 SEX: F : 1950 ARRIVES VIA: Ambulance INFORMANT: [Patient][nursing] ED PROVIDER(S): [Rogelio Mcintyre MD] CHIEF COMPLAINT: Illness HISTORY OF PRESENT ILLNESS: The patient is a 73-year-old female who was discharged from the hospital today to [facility] for rehab. She had fallen and suffered some injuries and was in our hospital for that reason. She was felt in need of a rehab before being discharged home. The patient arrived at [facility] and demanded she be brought back to our hospital for placement somewhere else. She does not want to be at that facility. Patient does have some pain in her lower extremities although, this is the same pain she had when she left the hospital. There is no increased cough, no increased dyspnea, no abdominal pain. She does wear 2 L of oxygen at all times. PMHx/PSHx/Social Hx: See Below PHYSICAL EXAM: GENERAL: Patient is in no acute distress. HEENT: No acute trauma, normocephalic atraumatic, mucous membranes moist, no nasal congestion. NECK: No stridor, no adenopathy, no meningismus, trachea is midline. LUNGS: Clear to auscultation bilaterally, no wheeze, no rhonchi, breath sounds equal. Breath sounds are diminished bilaterally. HEART: Without murmurs gallops or rubs, regular rate and rhythm. Heart tones distant. ABDOMEN: Soft, nontender, no peritonitis. EXTREMITIES: No cyanosis. She has a large full length right leg/knee brace. She has a boot on the left lower extremity. NEUROLOGIC: Oriented x 3, no acute motor or sensory deficits, no focal weakness. SKIN: No jaundice, no diaphoresis. DIFFERENTIAL DIAGNOSIS: Dehydration, anemia, electrolyte imbalance, UTI, among others. EMERGENCY DEPARTMENT PROCEDURES: MEDICAL DECISION MAKING: There is a mild leukocytosis, this could be consistent with infection or the stress of her presentation. There was a normal hemoglobin and platelet count. There was some evidence for acute kidney injury/dehydration with a creatinine over 2. No electrolyte abnormality in need of emergent correction. No concerning liver enzyme elevation. Patient appeared to be in a euthyroid state. COVID, influenza and RSV test were negative. Chest x-ray shows some congestion at both bases, no CHF. On exam, the patient was not toxic in appearance. The patient received IV saline for hydration, she was given 500 cc. The patient presents back to the ED after being frustrated with her transfer to [facility]. She was sent there for rehab. The patient is asking for rehab elsewhere. She is not willing to return to [facility]. I spoke with the patient, I spoke with case management. The on-call hospitalist was consulted. She will require a repeat hospital stay and rehab referral. Prior/Outside records/notes reviewed: Today's EMS notes describing her presentation and transport to this hospital. ECG per my interpretation: Indication was fall. The ECG shows a normal sinus rhythm with a rate of 81. There is some baseline artifact. There is no acute ST elevation, no PVCs. The QTc is 453. Continuous Cardiac Monitoring per my interpretation: An order was placed for continuous cardiac monitoring. The monitor shows a rate of 87 with normal sinus rhythm. Imaging/x-ray results per my interpretation: Chest x-ray does show some bibasilar congestion, likely atelectasis. No CHF. Chronic Medical/Social conditions affecting care: Advanced age, recent hospitalization. Care/Management discussed with: Case management, the on-call hospitalist. Level of care consideration(s): After review of the information above and other included data: --I believe the patient requires escalation of care to admission DISPOSITION: Admission Past Med/Surg History Problem List (Updated 05/23/24 @ 02:15 by Rogelio Mcintyre MD) MANDY (acute kidney injury) (Acute) Debilitated (Acute) Leukocytosis (Acute) Bilateral leg pain (Acute) Contusion of left foot Left ankle pain Hemarthrosis, right knee Right leg weakness (Acute) Acute pain of right knee (Acute) Fall (Acute) Sprain of left foot (Acute) Ambulatory dysfunction (Acute) Syncope and collapse COPD exacerbation Hypoxic (Acute) COPD (chronic obstructive pulmonary disease) (Acute) Dehydration Syncope (Acute) Acute hypotension (Acute) Laceration (Acute) Sepsis (Acute) COPD with acute exacerbation (Acute) Acute respiratory failure (Acute) COPD (chronic obstructive pulmonary disease) (Chronic) Migraine (Chronic) Anxiety (Chronic) Depression (Chronic) H/O tubal ligation (Chronic) Tracheostomy obstruction (Acute) Medical History (Updated 05/23/24 @ 02:15 by Rogelio Mcintyre MD) COPD (chronic obstructive pulmonary disease) Diabetes Social History Smoking Status: Current every day smoker Tobacco Type: Cigarettes Second Hand Exposure: Yes; Do You Dip or Chew Tobacco: No; Tobacco Cessation Education Requested by Patient: No Hx Alcohol Use: No Hx Substance Use: No Preferred Language: Iraqi Communication Ability: Effective Psychiatric Technician Required: No Beliefs That Will Affect Care: None Current Living Situation: Alone Other Information That Helps Us Care for You: No Feels Safe at Home: Yes Safety Concerns: Feels Safe At This Time Assistive Devices: Brace/Splint/Immobilizer, Denture - Upper, Denture - Lower, Glasses and Oxygen - at Night Allergies Allergies Allergy/AdvReac Type Severity Reaction Status Date / Time adhesive Allergy Intermediate RASH Verified 05/22/24 20:18 Quinolones Allergy Intermediate LEVAQUIN Verified 05/22/24 20:18 codeine AdvReac Severe "BECAME Verified 05/22/24 20:18 ADDICTED TO MED" PREFERS NOT TO TAKE IF POSSIBLE. morphine AdvReac Severe ADDICTION-PREFERS Verified 05/22/24 20:18 NOT TO TAKE IF POSSIBLE. linagliptin AdvReac Mild hypoglycemi Verified 05/22/24 20:18 a Home Meds Home Medications Medication Instructions Recorded Confirmed azelastine 137 mcg (0.1 %) nasal 2 spray intranasal BID 10/09/18 05/22/24 spray calcium carbonate 500 mg PO 5XD PRN Gi Upset 10/09/18 05/22/24 cholecalciferol (vitamin D3) 1,250 50,000 unit PO WK 10/09/18 05/22/24 mcg (50,000 unit) tablet clotrimazole 10 mg tyrell 10 mg mucous membrane 5XD PRN 10/09/18 05/22/24 THRUSH furosemide 20 mg tablet 20 mg PO DAILY 10/09/18 05/22/24 gabapentin 300 mg capsule 300 mg PO USEASDIRECTD 10/09/18 05/22/24 ipratropium bromide 0.02 % 2.5 ml continuous nebulization Q4H 10/09/18 05/22/24 solution for inhalation PRN Shortness Of Breath Or Wheezing levalbuterol HCl 1.25 mg/3 mL 1.25 mg inhalation QID PRN 10/09/18 05/22/24 solution for nebulization Shortness Of Breath Or Wheezing levocetirizine 5 mg tablet 5 mg PO PM 10/09/18 05/22/24 levothyroxine 75 mcg tablet 75 mcg PO QAM 10/09/18 05/22/24 montelukast 10 mg tablet 10 mg PO HS 10/09/18 05/22/24 nitroglycerin 0.4 mg sublingual 0.4 mg sublingual UD PRN Chest Pain 10/09/18 05/22/24 tablet (Nitrostat) pantoprazole 40 mg tablet,delayed 40 mg PO QAM 10/09/18 05/22/24 release paroxetine HCl 40 mg tablet 40 mg PO QAM 10/09/18 05/22/24 potassium chloride 10 mEq 10 meq PO DAILY 10/09/18 05/22/24 tablet,extended release(part/cryst) ropinirole 0.25 mg tablet 0.25 mg PO HS 10/09/18 05/22/24 aspirin 81 mg capsule 81 mg PO QAM 01/27/22 05/22/24 benzonatate 100 mg capsule 100 mg PO BID PRN Cough 01/27/22 05/22/24 guaifenesin 600 mg tablet, 600 mg PO BID PRN Cough 01/27/22 05/22/24 extended release 12 hr (Mucinex) albuterol sulfate 90 mcg/actuation 2 puff inhalation QID PRN 05/16/24 05/22/24 aerosol inhaler SOB/Wheezing alendronate 70 mg tablet 70 mg PO WK 05/16/24 05/22/24 atorvastatin 40 mg tablet 40 mg PO HS 05/16/24 05/22/24 fluticasone fur. 200 mcg-umeclid 1 inh inhalation DAILY 05/16/24 05/22/24 62.5 mcg-vilant 25 mcg inhalat.powder (Trelegy Ellipta) lidocaine 5 % topical patch 1 patch topical DAILY PRN Pain 05/16/24 05/22/24 (Lidoderm) linagliptin 5 mg tablet (Tradjenta) 5 mg PO QAM 05/16/24 05/22/24 atenolol 25 mg tablet 25 mg PO DAILY 05/22/24 05/22/24 lisinopril 10 mg tablet 10 mg PO QAM 05/22/24 05/22/24 nystatin 100,000 unit/gram topical 1 applic topical BID 05/22/24 05/22/24 cream Previous Rx's Medication Instructions Recorded tizanidine 4 mg tablet 2 mg (1/2 x 4 mg) PO TID PRN 05/22/24 muscle spasticity 30 days #90 tabs Results & Data (ED) Vital Signs Vital Signs - 24 hr 05/22/24 19:05 05/22/24 19:05 05/22/24 19:09 Temperature 37.7 C H Temperature Source Oral Pulse Rate 87 90 86 Pulse Rate [Left Apical] Pulse Rate from SpO2 Sensor Respiratory Rate 24 19 Respiratory Effort / Characteristics Non-Labored Spontaneous Respiratory Depth Normal Respiratory Pattern Regular Blood Pressure 121/64 Blood Pressure [Right Arm] Blood Pressure Mean 83 Blood Pressure Mean [Right Arm] Pulse Oximetry 92 92 Oxygen Delivery Method Nasal Cannula Nasal Cannula Oxygen Flow Rate 2 2 Sepsis Recent Fever Within 48 Hours No Sepsis New/Unexplained Change in Mental Status N/A Sepsis Action Taken by Nursing No Action Required 05/22/24 19:30 05/22/24 20:09 05/22/24 20:24 Temperature Temperature Source Pulse Rate 85 78 84 Pulse Rate [Left Apical] Pulse Rate from SpO2 Sensor Respiratory Rate 24 18 23 Respiratory Effort / Characteristics Respiratory Depth Respiratory Pattern Blood Pressure 113/75 Blood Pressure [Right Arm] Blood Pressure Mean 87 Blood Pressure Mean [Right Arm] Pulse Oximetry 92 91 Oxygen Delivery Method Nasal Cannula Nasal Cannula Oxygen Flow Rate 2 2 Sepsis Recent Fever Within 48 Hours Sepsis New/Unexplained Change in Mental Status Sepsis Action Taken by Nursing 05/22/24 21:13 05/22/24 21:16 05/22/24 21:30 Temperature 37.1 C Temperature Source Oral Pulse Rate 80 Pulse Rate [Left Apical] 78 Pulse Rate from SpO2 Sensor Respiratory Rate 17 17 Respiratory Effort / Characteristics Non-Labored Spontaneous Respiratory Depth Normal Respiratory Pattern Regular Blood Pressure 117/61 Blood Pressure [Right Arm] 112/51 L Blood Pressure Mean 79 Blood Pressure Mean [Right Arm] 71 Pulse Oximetry 93 91 Oxygen Delivery Method Nasal Cannula Nasal Cannula Oxygen Flow Rate 2 2 Sepsis Recent Fever Within 48 Hours Sepsis New/Unexplained Change in Mental Status Sepsis Action Taken by Nursing 05/22/24 21:51 05/22/24 22:00 05/22/24 22:03 Temperature Temperature Source Pulse Rate 77 76 Pulse Rate [Left Apical] Pulse Rate from SpO2 Sensor Respiratory Rate 22 19 Respiratory Effort / Characteristics Respiratory Depth Respiratory Pattern Blood Pressure 112/61 Blood Pressure [Right Arm] Blood Pressure Mean 85 Blood Pressure Mean [Right Arm] Pulse Oximetry 93 92 Oxygen Delivery Method Nasal Cannula Nasal Cannula Oxygen Flow Rate 2 2 Sepsis Recent Fever Within 48 Hours Sepsis New/Unexplained Change in Mental Status Sepsis Action Taken by Nursing 05/22/24 22:30 05/22/24 22:59 05/22/24 23:00 Temperature Temperature Source Pulse Rate 72 Pulse Rate [Left Apical] 79 Pulse Rate from SpO2 Sensor Respiratory Rate 19 Respiratory Effort / Characteristics Non-Labored Spontaneous Respiratory Depth Normal Respiratory Pattern Regular Blood Pressure 110/63 Blood Pressure [Right Arm] 107/61 Blood Pressure Mean 74 Blood Pressure Mean [Right Arm] 76 Pulse Oximetry 91 Oxygen Delivery Method Nasal Cannula Oxygen Flow Rate 1.5 Sepsis Recent Fever Within 48 Hours Sepsis New/Unexplained Change in Mental Status Sepsis Action Taken by Nursing 05/22/24 23:00 05/22/24 23:09 05/22/24 23:30 Temperature Temperature Source Pulse Rate 80 Pulse Rate [Left Apical] Pulse Rate from SpO2 Sensor 80 Respiratory Rate 20 Respiratory Effort / Characteristics Respiratory Depth Respiratory Pattern Blood Pressure 107/61 117/67 Blood Pressure [Right Arm] Blood Pressure Mean 81 89 Blood Pressure Mean [Right Arm] Pulse Oximetry 92 Oxygen Delivery Method Oxygen Flow Rate Sepsis Recent Fever Within 48 Hours Sepsis New/Unexplained Change in Mental Status Sepsis Action Taken by Nursing 05/22/24 23:39 Temperature Temperature Source Pulse Rate 74 Pulse Rate [Left Apical] Pulse Rate from SpO2 Sensor 75 Respiratory Rate 22 Respiratory Effort / Characteristics Respiratory Depth Respiratory Pattern Blood Pressure Blood Pressure [Right Arm] Blood Pressure Mean Blood Pressure Mean [Right Arm] Pulse Oximetry 91 Oxygen Delivery Method Oxygen Flow Rate Sepsis Recent Fever Within 48 Hours Sepsis New/Unexplained Change in Mental Status Sepsis Action Taken by [place] Medications Current Medication List: was personally reviewed by me Laboratory Data Attestation: I reviewed the patient's lab results. 05/22/24 19:42 05/22/24 19:42 Lab Results 05/22/24 05/22/24 Range/Units 19:42 19:43 WBC 11.84 H (4.8-10.8) K/ul RBC 3.95 L (4.20-5.40) M/uL Hgb 12.3 (12.0-16.0) g/dl Hct 38.1 (37.0-47.0) % MCV 96.5 (80.0-100.0) fL MCH 31.1 (25.0-34.0) pg MCHC 32.3 (32.0-36.0) g/dL RDW Std Deviation 48.3 H (36.4-46.3) fL RDW Coeff of Scar 13.6 (11.5-14.5) % Plt Count 366 (130-400) K/uL MPV 9.6 (9.4-12.4) fL Immature Gran % (Auto) 0.6 % Neut % (Auto) 64.1 % Lymph % (Auto) 23.4 % [place] % (Auto) 8.4 % Eos % (Auto) 3.2 % Baso % (Auto) 0.3 % Neut # (Auto) 7.58 H (1.40-6.50) K/uL Lymph # (Auto) 2.77 (1.20-3.40) K/uL [place] # (Auto) 1.00 H (0.11-0.59) K/uL Eos # (Auto) 0.38 (0.00-0.50) K/uL Baso # (Auto) 0.04 (0.00-0.20) K/uL Immature Gran # (Auto) 0.07 (0.01-0.20) K/uL Sodium 137 (136-145) mmol/L Potassium 4.0 (3.5-5.1) mmol/L Chloride 102 (98-107) mmol/L Carbon Dioxide 26 (21-32) mmol/L Anion Gap 9 (3-11) BUN 30 H (6-23) mg/dl Creatinine 2.04 H D (0.6-1.2) mg/dl Est Cr Clr Drug Dosing 28.3 ml/min Est GFR ( Amer) 27.5 ml/min Est GFR (Non-Af Amer) 23.8 ml/min BUN/Creatinine Ratio 14.7 (10-20) Glucose 110 H (70-99(Fasting)) mg/dl Lactate 1.3 (0.4-2.0) mmol/L Calcium 9.2 (8.6-10.3) mg/dl Magnesium 1.9 (1.7-2.4) mg/dl Total Bilirubin 0.3 (0.2-1.0) mg/dl AST 24 (13-39) U/L ALT 25 (7-52) U/L Alkaline Phosphatase 81 (34-104) U/L Total Protein 7.3 (6.0-8.3) gm/dl Albumin 3.5 (3.4-5.0) gm/dl Globulin 3.8 (2.5-4.0) gm/dl Albumin/Globulin Ratio 0.9 (0.9-2) Procalcitonin 0.08 (0-0.5) ng/ml TSH 4.139 (0.300-4.500) uIu/ml SARS-CoV-2 (PCR) NEGATIVE (Negative) Influenza Type A (PCR) Negative (Neg) Influenza Type B (PCR) Negative (Neg) RSV (RT-PCR) Negative (Neg) Administered Medications Insulin Aspart (Insulin Aspart Per Unit Charge) 0 units SC ACHS CHRISTINA Stop: 06/22/24 00:59 Last Admin: 05/23/24 01:16 Dose: Not Given Documented By: TABITHA Discontinued Medications Acetaminophen (Acetaminophen 325 Mg Tab) 650 mg PO NOW STA Stop: 05/22/24 19:34 Last Admin: 05/22/24 19:48 Dose: 650 mg Documented By: SHERRI Sodium Chloride (Nss) 500 mls @ 999 mls/hr IV .Q31M ONE Stop: 05/22/24 21:09 Last Infusion: 05/22/24 23:11 Dose: Infused Documented By: [facility] Admin: 05/22/24 21:14 Dose: 999 mls/hr Documented By: [facility] Discharge Plan Visit Data Chief Complaint: Illness Stated Complaint: DOESNT WANT TO BE AT [facility] ED Provider: Rogelio Mcintyre Discharge Problem: Bilateral leg pain, Leukocytosis, Debilitated, MANDY (acute kidney injury) Patient Disposition: Admitted As Inpatient Condition: Good Discharge Instructions Interventions: ED Discharge Assessment Last Done: 05/23/24 00:22 Discharge Problem: Leukocytosis Qualifiers: Leukocytosis type: unspecified Qualified Code(s): D72.829 - Elevated white blood cell count, unspecified
[2024-05-22] MEDS: ACETAMINOPHEN 325 MG TAB PO STA (19:48)
[2024-05-22 20:13] LABS: Basophils # (auto) 0.04 K/uL (0.00-0.20); Basophils % (auto) 0.3 %; Eosinophils # (auto) 0.38 K/uL (0.00-0.50); Eosinophils % (auto) 3.2 %; Hematocrit (blood only) 38.1 % (37.0-47.0); Hemoglobin 12.3 g/dl (12.0-16.0); Immature Granulocytes # (auto) 0.07 K/uL (0.01-0.20); Immature Granulocytes % (auto) 0.6 %; Lymphocytes # (auto) 2.77 K/uL (1.20-3.40); Lymphocytes % (auto) 23.4 %; Mean Corpuscular Hemoglobin 31.1 pg (25.0-34.0); Mean Corpuscular Hgb Conc 32.3 g/dL (32.0-36.0); Mean Corpuscular Volume 96.5 fL (80.0-100.0); Mean Platelet Volume 9.6 fL (9.4-12.4); Monocytes % (auto) 8.4 %; Neutrophils # (auto) 7.58 K/uL (1.40-6.50); Neutrophils % (auto) 64.1 %; Platelet Count 366 K/uL (130-400); RDW Coefficient of Variation 13.6 % (11.5-14.5); RDW Standard Deviation 48.3 fL (36.4-46.3); Red Blood Count 3.95 M/uL (4.20-5.40); White Blood Count 11.84 K/ul (4.8-10.8)
[2024-05-22 20:31] LABS: Albumin Globulin Ratio 0.9 (0.9-2); Albumin Level 3.5 gm/dl (3.4-5.0); BUN Creatinine Ratio 14.7 (10-20); Bilirubin,Total 0.3 mg/dl (0.2-1.0); Calcium 9.2 mg/dl (8.6-10.3); Creatinine Clr Calc Pharmacy 28.3 ml/min; Est GFR (African American) 27.5 ml/min; Est GFR (Non-African American) 23.8 ml/min; Globulin 3.8 gm/dl (2.5-4.0); Magnesium 1.9 mg/dl (1.7-2.4); Total Protein 7.3 gm/dl (6.0-8.3)
[2024-05-22 20:37] LABS: Influenza A virus by PCR Negative (Neg); Influenza B virus by PCR Negative (Neg); RSV by PCR Negative (Neg); SARS CoV2 RNA(COVID-19) Ceph NEGATIVE (Negative)
[2024-05-22 20:45] LABS: Thyroid Stimulating Hormone 4.139 uIu/ml (0.300-4.500)
[2024-05-22] MEDS: SODIUM CHLORIDE 0.9% 500 ML IV ONE (21:14)
--- NOTE | 2024-05-22 23:54 | History & Physical Report ---
Date of Service May 22, 2024 Assessment & Plan (1) MANDY (acute kidney injury): Plan: ARF on CKD chronic respiratory failure secondary to COPD on home O2 at night chronic systolic/diastolic heart failure (EF of 55-60% TTE 2023), euvolemic to dry HTN, BP on the lower side DM 2 on oral meds, hypothyroidism, euthyroid as of today's TSH DM 2 on oral meds, well controlled as of recent hemoglobin A1c of 6.5 this month Ambulatory dysfunction ongoing tobacco abuse Admit to [facility] Baseline UA Monitor creatinine response to IVF Hold home diuretic and lisinopril for now until creatinine back to baseline, may benefit from lower dose of lisinopril given borderline BP ISS BG goal 1 10-1 40, carb count coverage Nicotine patch as needed Case management Re: Placement DVT prophylaxis. Heparin subcu Full code Text document was generated using [employer] voice recognition software. It may contain grammatical or spelling errors. Kindly contact undersigned for clarification of any documentation item in question. History of Present Illness Chief Complaint: I don't want to stay at that place ([facility]). Primary Care Provider: Franca Lilly MD History obtained from patient and records. Medical history is significant for chronic respiratory failure secondary to COPD on home O2 at night, chronic systolic/diastolic heart failure (EF of 55-60% TTE 2023), HTN, DM 2 on oral meds, CRI baseline creatinine 1.4, hypothyroidism, mood disorder, ongoing tobacco abuse. Recent confinement May 16 to 2023 for syncope possibly vasovagal. Lower extremity wounds from fall. Patient discharged to [facility] today for rehab. Patient displaced upon arrival at rehab facility. Place was too busy and crowded for her. Patient requested to be brought back to ER. Patient denies chest pain, SOB, abdominal pain symptoms. Medical Historyas above Surgical History : BTL, sinus surgery, nasal septum repair, wrist surgery cataract surgery Family History : Heart disease Personal/Social history : Half pack daily, no chronic EtOH intake, disabled Allergies Allergy/AdvReac Type Severity Reaction Status Date / Time adhesive Allergy Intermediate RASH Verified 05/22/24 20:18 Quinolones Allergy Intermediate LEVAQUIN Verified 05/22/24 20:18 codeine AdvReac Severe "BECAME Verified 05/22/24 20:18 ADDICTED TO MED" PREFERS NOT TO TAKE IF POSSIBLE. morphine AdvReac Severe ADDICTION-PREFERS Verified 05/22/24 20:18 NOT TO TAKE IF POSSIBLE. linagliptin AdvReac Mild hypoglycemi Verified 05/22/24 20:18 a Home Medications Medication Instructions Recorded Confirmed Type azelastine 137 mcg (0.1 %) nasal 2 spray intranasal BID 10/09/18 05/22/24 History spray calcium carbonate 500 mg PO 5XD PRN Gi Upset 10/09/18 05/22/24 History cholecalciferol (vitamin D3) 1,250 50,000 unit PO WK 10/09/18 05/22/24 History mcg (50,000 unit) tablet clotrimazole 10 mg tyrell 10 mg mucous membrane 5XD PRN 10/09/18 05/22/24 History THRUSH furosemide 20 mg tablet 20 mg PO DAILY 10/09/18 05/22/24 History gabapentin 300 mg capsule 300 mg PO USEASDIRECTD 10/09/18 05/22/24 History ipratropium bromide 0.02 % 2.5 ml continuous nebulization Q4H 10/09/18 05/22/24 History solution for inhalation PRN Shortness Of Breath Or Wheezing levalbuterol HCl 1.25 mg/3 mL 1.25 mg inhalation QID PRN 10/09/18 05/22/24 History solution for nebulization Shortness Of Breath Or Wheezing levocetirizine 5 mg tablet 5 mg PO PM 10/09/18 05/22/24 History levothyroxine 75 mcg tablet 75 mcg PO QAM 10/09/18 05/22/24 History montelukast 10 mg tablet 10 mg PO HS 10/09/18 05/22/24 History nitroglycerin 0.4 mg sublingual 0.4 mg sublingual UD PRN Chest Pain 10/09/18 05/22/24 History tablet (Nitrostat) pantoprazole 40 mg tablet,delayed 40 mg PO QAM 10/09/18 05/22/24 History release paroxetine HCl 40 mg tablet 40 mg PO QAM 10/09/18 05/22/24 History potassium chloride 10 mEq 10 meq PO DAILY 10/09/18 05/22/24 History tablet,extended release(part/cryst) ropinirole 0.25 mg tablet 0.25 mg PO HS 10/09/18 05/22/24 History aspirin 81 mg capsule 81 mg PO QAM 01/27/22 05/22/24 History benzonatate 100 mg capsule 100 mg PO BID PRN Cough 01/27/22 05/22/24 History guaifenesin 600 mg tablet, 600 mg PO BID PRN Cough 01/27/22 05/22/24 History extended release 12 hr (Mucinex) albuterol sulfate 90 mcg/actuation 2 puff inhalation QID PRN 05/16/24 05/22/24 History aerosol inhaler SOB/Wheezing alendronate 70 mg tablet 70 mg PO WK 05/16/24 05/22/24 History atorvastatin 40 mg tablet 40 mg PO HS 05/16/24 05/22/24 History fluticasone fur. 200 mcg-umeclid 1 inh inhalation DAILY 05/16/24 05/22/24 History 62.5 mcg-vilant 25 mcg inhalat.powder (Trelegy Ellipta) lidocaine 5 % topical patch 1 patch topical DAILY PRN Pain 05/16/24 05/22/24 History (Lidoderm) linagliptin 5 mg tablet (Tradjenta) 5 mg PO QAM 05/16/24 05/22/24 History atenolol 25 mg tablet 25 mg PO DAILY 05/22/24 05/22/24 History lisinopril 10 mg tablet 10 mg PO QAM 05/22/24 05/22/24 History nystatin 100,000 unit/gram topical 1 applic topical BID 05/22/24 05/22/24 History cream tizanidine 4 mg tablet 2 mg (1/2 x 4 mg) PO TID PRN 05/22/24 05/22/24 Rx muscle spasticity 30 days #90 tabs Past Med/Surg History Problem List (Updated 05/23/24 @ 02:15 by Rogelio Mcintyre MD) MANDY (acute kidney injury) (Acute) Debilitated (Acute) Leukocytosis (Acute) Bilateral leg pain (Acute) Contusion of left foot Left ankle pain Hemarthrosis, right knee Right leg weakness (Acute) Acute pain of right knee (Acute) Fall (Acute) Sprain of left foot (Acute) Ambulatory dysfunction (Acute) Syncope and collapse COPD exacerbation Hypoxic (Acute) COPD (chronic obstructive pulmonary disease) (Acute) Dehydration Syncope (Acute) Acute hypotension (Acute) Laceration (Acute) Sepsis (Acute) COPD with acute exacerbation (Acute) Acute respiratory failure (Acute) COPD (chronic obstructive pulmonary disease) (Chronic) Migraine (Chronic) Anxiety (Chronic) Depression (Chronic) H/O tubal ligation (Chronic) Tracheostomy obstruction (Acute) Medical History (Updated 05/23/24 @ 02:15 by Rogelio Mcintyre MD) COPD (chronic obstructive pulmonary disease) Diabetes Social History Smoking Status: Current every day smoker Tobacco Type: Cigarettes Second Hand Exposure: Yes; Do You Dip or Chew Tobacco: No; Tobacco Cessation Education Requested by Patient: No Hx Alcohol Use: No Hx Substance Use: No Preferred Language: [place] Communication Ability: Effective Heating And Cooling Technician Required: No Beliefs That Will Affect Care: None Current Living Situation: Alone Other Information That Helps Us Care for You: No Feels Safe at Home: Yes Safety Concerns: Feels Safe At This Time Assistive Devices: Brace/Splint/Immobilizer, Denture - Upper, Denture - Lower, Glasses and Oxygen - at Night Review of Systems Review of Systems: As per HPI, all other systems reviewed and negative Physical Exam Physical Exam: GENERAL: comfortable, chronically ill,, no respiratory distress SKIN: Normal color, warm HEENT: pink palpebral conjunctivae, no ptosis, dry buccal mucosa, nasal cannula in place NECK : Supple, no tenderness CHEST : Decreased breath sounds, no tenderness HEART : RRR, no obvious murmurs ABDOMEN: Some distention, nontender EXTREMITIES : Minimal LE swelling, RLE tenderness, no other conspicuous deformities noted NEUROLOGIC : Coherent, no facial asymmetry, no other gross focality Results & Data Results & Data Vital Signs (Past 12 Hours) Vital Signs Temp Pulse Pulse Resp BP BP Pulse Ox 05/22/24 23:00 79 19 107/61 91 05/22/24 22:59 72 05/22/24 22:30 110/63 05/22/24 22:03 76 19 92 05/22/24 22:00 112/61 05/22/24 21:51 77 22 93 05/22/24 21:30 80 17 117/61 91 05/22/24 21:16 37.1 C 05/22/24 21:13 78 17 112/51 L 93 05/22/24 20:24 84 23 91 05/22/24 20:09 78 18 92 05/22/24 19:30 85 24 113/75 05/22/24 19:09 86 19 92 05/22/24 19:05 90 05/22/24 19:05 37.7 C H 87 24 121/64 92 O2 Del Method O2 Flow Rate 05/22/24 23:00 Nasal Cannula 1.5 05/22/24 22:59 05/22/24 22:30 05/22/24 22:03 Nasal Cannula 2 05/22/24 22:00 05/22/24 21:51 Nasal Cannula 2 05/22/24 21:30 Nasal Cannula 2 05/22/24 21:16 05/22/24 21:13 Nasal Cannula 2 05/22/24 20:24 Nasal Cannula 2 05/22/24 20:09 Nasal Cannula 2 05/22/24 19:30 05/22/24 19:09 Nasal Cannula 2 05/22/24 19:05 05/22/24 19:05 Nasal Cannula 2 Laboratory Results Laboratory Results WBC 11.84 K/ul (4.8-10.8) H 05/22/24 19:42 RBC 3.95 M/uL (4.20-5.40) L 05/22/24 19:42 Hgb 12.3 g/dl (12.0-16.0) 05/22/24 19:42 Hct 38.1 % (37.0-47.0) 05/22/24 19:42 MCV 96.5 fL (80.0-100.0) 05/22/24 19:42 MCH 31.1 pg (25.0-34.0) 05/22/24 19:42 MCHC 32.3 g/dL (32.0-36.0) 05/22/24 19:42 RDW Std Deviation 48.3 fL (36.4-46.3) H 05/22/24 19:42 RDW Coeff of Scar 13.6 % (11.5-14.5) 05/22/24 19:42 Plt Count 366 K/uL (130-400) 05/22/24 19:42 MPV 9.6 fL (9.4-12.4) 05/22/24 19:42 Immature Gran % (Auto) 0.6 % 05/22/24 19:42 Neut % (Auto) 64.1 % 05/22/24 19:42 Lymph % (Auto) 23.4 % 05/22/24 19:42 [place] % (Auto) 8.4 % 05/22/24 19:42 Eos % (Auto) 3.2 % 05/22/24 19:42 Baso % (Auto) 0.3 % 05/22/24 19:42 Neut # (Auto) 7.58 K/uL (1.40-6.50) H 05/22/24 19:42 Lymph # (Auto) 2.77 K/uL (1.20-3.40) 05/22/24 19:42 Morehouse # (Auto) 1.00 K/uL (0.11-0.59) H 05/22/24 19:42 Eos # (Auto) 0.38 K/uL (0.00-0.50) 05/22/24 19:42 Baso # (Auto) 0.04 K/uL (0.00-0.20) 05/22/24 19:42 Immature Gran # (Auto) 0.07 K/uL (0.01-0.20) 05/22/24 19:42 Sodium 137 mmol/L (136-145) 05/22/24 19:42 Potassium 4.0 mmol/L (3.5-5.1) 05/22/24 19:42 Chloride 102 mmol/L (98-107) 05/22/24 19:42 Carbon Dioxide 26 mmol/L (21-32) 05/22/24 19:42 Anion Gap 9 (3-11) 05/22/24 19:42 BUN 30 mg/dl (6-23) H 05/22/24 19:42 Creatinine 2.04 mg/dl (0.6-1.2) H D 05/22/24 19:42 Est Cr Clr Drug Dosing 28.3 ml/min 05/22/24 19:42 Est GFR ( Amer) 27.5 ml/min 05/22/24 19:42 Est GFR (Non-Af Amer) 23.8 ml/min 05/22/24 19:42 BUN/Creatinine Ratio 14.7 (10-20) 05/22/24 19:42 Glucose 110 mg/dl (70-99(Fasting)) H 05/22/24 19:42 Lactate 1.3 mmol/L (0.4-2.0) 05/22/24 19:43 Calcium 9.2 mg/dl (8.6-10.3) 05/22/24 19:42 Magnesium 1.9 mg/dl (1.7-2.4) 05/22/24 19:42 Total Bilirubin 0.3 mg/dl (0.2-1.0) 05/22/24 19:42 AST 24 U/L (13-39) 05/22/24 19:42 ALT 25 U/L (7-52) 05/22/24 19:42 Alkaline Phosphatase 81 U/L (34-104) 05/22/24 19:42 Total Protein 7.3 gm/dl (6.0-8.3) 05/22/24 19:42 Albumin 3.5 gm/dl (3.4-5.0) 05/22/24 19:42 Globulin 3.8 gm/dl (2.5-4.0) 05/22/24 19:42 Albumin/Globulin Ratio 0.9 (0.9-2) 05/22/24 19:42 Procalcitonin 0.08 ng/ml (0-0.5) 05/22/24 19:42 TSH 4.139 uIu/ml (0.300-4.500) 05/22/24 19:42 SARS-CoV-2 (PCR) NEGATIVE (Negative) 05/22/24 19:42 Influenza Type A (PCR) Negative (Neg) 05/22/24 19:42 Influenza Type B (PCR) Negative (Neg) 05/22/24 19:42 RSV (RT-PCR) Negative (Neg) 05/22/24 19:42 Diagnostic Findings Chest x-ray as per my interpretation atelectasis
[2024-05-23] MEDS ORDERED: NITROGLYCERIN SL 0.4 MG/TAB TAB SL PRN (00:21)
[2024-05-23] MEDS ORDERED: LEVALBUTEROL 1.25 MG/3 ML NEB INH PRN (00:21)
[2024-05-23] MEDS ORDERED: tiZANidine HCL 4 MG TABLET PO PRN (00:21)
[2024-05-23] MEDS ORDERED: ACETAMINOPHEN 325 MG TAB PO PRN (00:23)
[2024-05-23] MEDS: INSULIN ASPART PER UNIT CHARGE SC SCH (01:16)
[2024-05-23] MEDS: rOPINIRole HCL 0.25 MG TABLET PO SCH (02:53)
--- OUTSIDE RECORDS SUMMARY | 2024-05-23 05:10 | External Medical Summary | Summary of Care ---
Author Name Unknown Organization [facility] Address [address] [place] [address] Phone [phone] Care Team Providers Care Press Shop Supervisor Name Role Phone Franca Lilly MD Primary Care Provider [phone] Encounter Details Date Type Department Care Team (Late st Contact Info) Description 05/18/2024 Population Health External Data Unspecified Department Allergies Active Allergy Reactions Criticality Noted Date Comments 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 Quinolones Other (Please comment) 02/19/2003 Hives Moods- becomes nasty Adhesive Tape Rash 01/29/2014 documented as of this encounter (statuses as of 05/18/2024) Medications Medication Sig Dispensed Refills Start Date [...] 11/02/2022 Active Vitamin D (Ergocalciferol) 1.25 MG (36048 UT) Oral Capsule (Drisdol) TAKE 1 CAPSULE BY MOUTH ONE TIME PER WEEK Strength: 1.25 MG (04540 UT) 12 Capsule 1 02/19/2023 Active Additional [...] 54 g 3 01/10/2024 5 Active Nystatin 754106 UNIT/GM External CreamIndications:Can didal skin infection APPLY [...] DAY AT BEDTIME 30 Tablet 5 05/15/2024 5 Active Hospital, Clinic, or Other Facility Administered Medication Ordered Dose Route Frequency Start Date End Date Status Albuterol Sulfate (Proventil) (2.5 MG/3ML) 0.083% inhalation solution 2.5 mgIndications:Chronic respiratory failure with hypoxia (HCC),COPD, group D, by GOLD 2017 classification ([facility]) 2.5 mg NEBULIZER PRN 12/06/2023 12/05/2024 Acti ve Albuterol Sulfate (Proventil) (5 MG/ML) 0.5% *conc* inhalation solution 2.5 mgIndications:Chronic respiratory failure with hypoxia (HCC),COPD, group D, by GOLD 2017 classification (HCC) 2.5 mg NEBULIZER PRN 12/06/2023 12/05/2024 Acti ve documented as of this encounter (statuses as of 05/18/2024) Active Problems Problem Noted Date Diagnosed Date [...] rinse after steroid. Test performed by [facility] [employer] [facility] Hypertensive kidney disease, stage III 9 [...] as of this encounter (statuses as of 05/18/2024) Resolved Problems Problem Noted Date Diagnosed Date [...] as of this encounter (statuses as of 05/18/2024) Immunizations Name Administration Dates Next Due COVID-19 mRNA, LNP-s, No Pre serve, 2-Dose Series (Apcera) 05/27/2021,11/21/2020,10/31/2020 Pneumococcal Conjugate Vacc, 13 Valent (Prevnar) [...] Monitoring 09/14/2020 09/14/2019 CKD PHOS USE SMARTSET 76218 12/10/202211/22, 12/13/2020, 12/11/2014, Additional history exists Albumin/Creatinine [...] Additional history exists CKD HGB USE SMARTSET 69914 08/26/202408/26, 08/26/2023, 05/24/2023, Additional history exists Diabetic [...] D LEVEL ONCE IN A LIFETIME-USE SMARTSET# 13112 Completed 12/10/2021, 03/01/2019, 07/07/2017, Additional history exists [...] Documents on File Type Date Recorded 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
[2024-05-23] MEDS: LEVOTHYROXINE SODIUM 75 MCG TABLET PO SCH (05:39)
[2024-05-23] MEDS: HEPARIN SOD 5,000 UNIT/0.5 ML VIAL SQ SCH (05:39)
[2024-05-23 06:37] LABS: Basophils # (auto) 0.03 K/uL (0.00-0.20); Basophils % (auto) 0.3 %; Eosinophils % (auto) 4.1 %; Hematocrit (blood only) 37.2 % (37.0-47.0); Hemoglobin 12.1 g/dl (12.0-16.0); Immature Granulocytes # (auto) 0.08 K/uL (0.01-0.20); Immature Granulocytes % (auto) 0.8 %; Lymphocytes # (auto) 2.79 K/uL (1.20-3.40); Lymphocytes % (auto) 28.6 %; Mean Corpuscular Hgb Conc 32.5 g/dL (32.0-36.0); Mean Corpuscular Volume 95.4 fL (80.0-100.0); Mean Platelet Volume 9.4 fL (9.4-12.4); Monocytes # (auto) 0.95 K/uL (0.11-0.59); Monocytes % (auto) 9.7 %; Neutrophils # (auto) 5.52 K/uL (1.40-6.50); Neutrophils % (auto) 56.5 %; Platelet Count 381 K/uL (130-400); RDW Coefficient of Variation 13.5 % (11.5-14.5); RDW Standard Deviation 47.5 fL (36.4-46.3); White Blood Count 9.77 K/ul (4.8-10.8)
[2024-05-23 07:02] LABS: BUN Creatinine Ratio 20.1 (10-20); Creatinine Clr Calc Pharmacy 39.3 ml/min; Est GFR (African American) 41.9 ml/min; Est GFR (Non-African American) 36.2 ml/min; Potassium 3.9 mmol/L (3.5-5.1)
--- NOTE | 2024-05-23 07:07 | XRay Report ---
XR chest 1V portable HISTORY: 73 years-old Female renal failure acute renal failure COMPARISON: 05/16/2024 TECHNIQUE: AP view of the chest FINDINGS: Cardiac silhouette is upper limits of normal. Pulmonary vascular congestion. Atherosclerosis of the a prisca. Subtle ill-defined bibasilar opacities. Bilateral rotator cuff calcific tendinosis. No pneumoth orax or large pleural effusion. IMPRESSION: 1. Pulmonary vascular congestion without overt pulmonary edema. 2. Mild bibasilar opacities favor atelectasis. A nonspecific pneumonitis could appear similarly. ACT 112: Negative or not required by law. The above report was generated using voice recognition software. It may contain grammatical, syntax o r spelling errors. Electronically signed by: Negro Rodarte M.D. 05/23/2024 7:06 AM
[2024-05-23] MEDS ORDERED: NON-FORMULARY MEDICATION (Fluticasone-Umeclidin-Vilanter [Trelegy Ellipta] 200-62.5-25 mcg INH SCH (09:00)
[2024-05-23] MEDS: FLUTICASONE FUROATE 200MCG 14 PUFFS/INHALER INH SCH (09:01)
[2024-05-23] MEDS: AZELASTINE HCL 0.1% NASAL 200 SPRAYS/27,400 MCG BTL SCH (09:02)
[2024-05-23] MEDS: UMECLIDINIUM/VILANTEROL 62.5/25MCG 7 PUFFS/INHALER INH SCH (09:02)
[2024-05-23] MEDS: PARoxetine HCL 20 MG TAB PO SCH (09:03)
[2024-05-23] MEDS: ASPIRIN 81 MG ECTAB PO SCH (09:04)
[2024-05-23] MEDS: GABAPENTIN 300 MG CAP PO SCH ×2 (09:04→20:13)
[2024-05-23] MEDS: PANTOprazole 40 MG TAB PO SCH (09:05)
[2024-05-23 09:40] LABS: Appearance Urine Clear (Clear); Bilirubin Urine Negative (Negative); Blood Urine Negative (Negative); Color Urine Yellow; Glucose Urine UA Negative (Negative); Ketones Urine Negative (Negative); Leukocyte Esterase Urine Negative (Negative); Nitrite Urine Negative (Negative); Protein Urine Negative (Negative); Urobilinogen Urine Negative (Negative); pH Urine 5.5 (4.5-7.5)
--- NOTE | 2024-05-23 10:54 | Electrocardiogram Report ---
Test Reason : Blood Pressure : */* mmHG Vent. Rate : 81 BPM Atrial Rate : 81 BPM P-R Int : 132 ms QRS Dur : 86 ms QT Int : 390 ms P-R-T Axes : 65 -21 42 degrees QTcB Int : 453 ms Normal sinus rhythm Normal ECG When compared with ECG of 16-May-2024 08:35, No significant change was found Confirmed by Yossi Kimbrough ([id number]) on 05/23/2024 10:53:37 AM Referred By: REFERRED SELF Confirmed By: Yossi Kimbrough
[2024-05-23] MEDS: ATENOLOL 25 MG TABLET PO SCH (12:35)
--- NOTE | 2024-05-23 13:35 | Hospitalist Progress Note ---
Date of Service May 23, 2024 Assessment & Plan (1) MANDY (acute kidney injury): Plan Ms. Danni Patricio is a 73y/o woman with PMHx of DM type II, CKD stage III, hypothyroidism, HLD, COPD, chronic respiratory failure with hypoxia, systolic heart failure due to idiopathic cardiomyopathy, HTN, vitamin D deficiency, GERD without esophagitis, osteoarthritis, macular degeneration, anxiety/depression, tobacco use disorder and other problems admitted for MANDY and placement. Patient recently admitted for "blacking out" with subsequent right lateral tibial plateau fracture. Patient discharged 05/22 for rehab, but returned that evening due to "conditions" of rehab. Patient with multiple medication adjustments, including discontinuation of lisinopril and atenolol due to lower resting BP. MANDY noted on admission, will hold home furosemide. #Ambulatory dysfunction #Recent Right lateral tibial plateau fracture c/b hemarthrosis #Recent Left ankle sprain R knee joint effusion noted on R knee XR, no fx's were noted. Ortho consult: s/p aspiration of 48cc blood, cultures sent 05/16. NGTD L foot XR w/ no acute fx or dislocation, but does note a possible punctate foreign body. Podiatry consult pending. Continue R knee immobilzation Continue High tide cam boot for left foot PT/OT ordered: rehab v home health if son can be present #Hx of hypertension #Recent Syncope & Collapse: Recent work up unrevealing Home antihypertensive discontinued last admission CTM #MANDY CKD stage III attempted to resume home lasix, however, will hold and CTM BMP patient denies issues with persistent edema if uptrending consider Nephrology, however, improved this am #COPD, Chronic Respiratory Failure w/ Hypoxia: CXR & RVP both negative. Notable expiratory wheezing heard on exam. Uses 2L O2 HS at baseline - ordered. Continue home meds. 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 SSI regimen while inpatient. BSG checks ACHS. 6.5% 05/17/2024 Other Chronic Medical Conditions: GERD, hypothyroidism, osteoarthritis, HLD, seasonal allergies, anxiety/depression --> Can continue home meds for these specific conditions. DVT Prophylaxis: SQ Heparin Code Status: FULL CODE PCP: Franca Lilly MD Disposition: Admit to Med/Surg Admission and Anticipated Discharge Date Admission Date: May 22, 2024 Subjective Patient reports frustration over atrocities at SNF for rehab Denies any new symptoms and reports feeling well over all Physical Exam Constitutional: WD/WN, vitals as above Respiratory: normal respiratory effort, lungs clear to auscultation Cardiovascular: RRR, no murmur, no edema Musculoskeletal: right knee immobilizer in place, improving left foot ecchymosis Results & Data Results & Data Vital Signs (Past 12 Hours) Vital Signs Temp Pulse Resp BP Pulse Ox O2 Del Method O2 Flow Rate 05/23/24 07:52 Nasal Cannula 2 05/23/24 07:49 92 Nasal Cannula 2 05/23/24 07:02 36.6 C 70 18 105/65 Laboratory Results Short CBC 05/22/24 05/23/24 Range/Units 19:42 06:03 WBC 11.84 H 9.77 (4.8-10.8) K/ul Hgb 12.3 12.1 (12.0-16.0) g/dl Hct 38.1 37.2 (37.0-47.0) % Plt Count 366 381 (130-400) K/uL BMP 05/22/24 05/23/24 19:42 06:03 Sodium 137 140 Potassium 4.0 3.9 Chloride 102 106 Carbon Dioxide 26 28 BUN 30 H 29 H Creatinine 2.04 H D 1.44 H D Glucose 110 H 104 H Calcium 9.2 9.0 Liver Function 05/22/24 Range/Units 19:42 Total Bilirubin 0.3 (0.2-1.0) mg/dl AST 24 (13-39) U/L ALT 25 (7-52) U/L Alkaline Phosphatase 81 (34-104) U/L Albumin 3.5 (3.4-5.0) gm/dl Urine 05/23/24 Range/Units 09:25 Urine Color Yellow Urine Appearance Clear (Clear) Urine pH 5.5 (4.5-7.5) Ur Specific [place] 1.020 (1.000-1.030) Urine Protein Negative (Negative) Urine Glucose (UA) Negative (Negative) Medications Administered Home Medications Medication Instructions Recorded Confirmed Last Taken azelastine 137 mcg (0.1 %) nasal 2 spray intranasal BID 10/09/18 05/22/24 Unknown spray calcium carbonate 500 mg PO 5XD PRN Gi Upset 10/09/18 05/22/24 Unknown cholecalciferol (vitamin D3) 1,250 50,000 unit PO WK 10/09/18 05/22/24 Unknown mcg (50,000 unit) tablet clotrimazole 10 mg tyrell 10 mg mucous membrane 5XD PRN 10/09/18 05/22/24 Unknown THRUSH furosemide 20 mg tablet 20 mg PO DAILY 10/09/18 05/22/24 05/22/24 gabapentin 300 mg capsule 300 mg PO USEASDIRECTD 10/09/18 05/22/24 05/22/24 ipratropium bromide 0.02 % 2.5 ml continuous nebulization Q4H 10/09/18 05/22/24 Unknown solution for inhalation PRN Shortness Of Breath Or Wheezing levalbuterol HCl 1.25 mg/3 mL 1.25 mg inhalation QID PRN 10/09/18 05/22/24 Unknown solution for nebulization Shortness Of Breath Or Wheezing levocetirizine 5 mg tablet 5 mg PO PM 10/09/18 05/22/24 Unknown levothyroxine 75 mcg tablet 75 mcg PO QAM 10/09/18 05/22/24 05/22/24 montelukast 10 mg tablet 10 mg PO HS 10/09/18 05/22/24 Unknown nitroglycerin 0.4 mg sublingual 0.4 mg sublingual UD PRN Chest Pain 10/09/18 05/22/24 Unknown tablet (Nitrostat) pantoprazole 40 mg tablet,delayed 40 mg PO QAM 10/09/18 05/22/24 05/22/24 release paroxetine HCl 40 mg tablet 40 mg PO QAM 10/09/18 05/22/24 05/22/24 potassium chloride 10 mEq 10 meq PO DAILY 10/09/18 05/22/24 05/22/24 tablet,extended release(part/cryst) ropinirole 0.25 mg tablet 0.25 mg PO HS 10/09/18 05/22/24 Unknown aspirin 81 mg capsule 81 mg PO QAM 01/27/22 05/22/24 05/22/24 benzonatate 100 mg capsule 100 mg PO BID PRN Cough 01/27/22 05/22/24 Unknown guaifenesin 600 mg tablet, 600 mg PO BID PRN Cough 01/27/22 05/22/24 Unknown extended release 12 hr (Mucinex) albuterol sulfate 90 mcg/actuation 2 puff inhalation QID PRN 05/16/24 05/22/24 Unknown aerosol inhaler SOB/Wheezing alendronate 70 mg tablet 70 mg PO WK 05/16/24 05/22/24 Unknown atorvastatin 40 mg tablet 40 mg PO HS 05/16/24 05/22/24 Unknown fluticasone fur. 200 mcg-umeclid 1 inh inhalation DAILY 05/16/24 05/22/24 0 05/22/24 62.5 mcg-vilant 25 mcg inhalat.powder (Trelegy Ellipta) lidocaine 5 % topical patch 1 patch topical DAILY PRN Pain 05/16/24 05/22/24 Unknown (Lidoderm) linagliptin 5 mg tablet (Tradjenta) 5 mg PO QAM 05/16/24 05/22/24 05/22/24 atenolol 25 mg tablet 25 mg PO DAILY 05/22/24 05/22/24 05/22/24 lisinopril 10 mg tablet 10 mg PO QAM 05/22/24 05/22/24 05/22/24 nystatin 100,000 unit/gram topical 1 applic topical BID 05/22/24 05/22/24 05/22/24 cream tizanidine 4 mg tablet 2 mg (1/2 x 4 mg) PO TID PRN 05/22/24 05/22/24 Unknown muscle spasticity 30 days #90 tabs Active Medications Generic Name Dose Route Start Last Admin Trade Name Freq PRN Reason Stop Dose Admin Aspirin 81 mg 05/23/24 09:00 05/23/24 09:04 Aspirin 81 Mg Ectab PO 06/22/24 08:59 81 mg QAM CHRISTINA Administration Atenolol 25 mg 05/23/24 12:00 05/23/24 12:35 Atenolol 25 Mg Tablet PO 06/22/24 11:59 25 mg DAILY@1200 CHRISTINA Administration Azelastine HCl 2 sprays 05/23/24 09:00 05/23/24 09:02 Azelastine Hcl 0.1% Nasal 200 Sprays/27,400 Mcg Btl NA 06/22/24 08:59 2 sprays BID CHRISTINA Administration Fluticasone Furoate 1 puffs 05/23/24 09:00 05/23/24 09:01 Fluticasone Furoate 200mcg 14 Puffs/Inhaler INH 06/22/24 08:59 1 puffs DAILY CHRISTINA Administration Gabapentin 300 mg 05/23/24 09:00 05/23/24 09:04 Gabapentin 300 Mg Cap PO 06/22/24 08:59 300 mg BID@0900,1400 CHRISTINA Administration Heparin Sodium (Porcine) 5,000 units 05/23/24 06:00 05/23/24 05:39 Heparin Sod 5,000 Unit/0.5 Ml Vial SQ 06/22/24 05:59 5,000 units Q8H CHRISTINA Administration Insulin Aspart 0 units 05/23/24 01:00 05/23/24 12:32 Insulin Aspart Per Unit Charge SC 06/22/24 00:59 Not Given ACHS CHRISTINA Levothyroxine Sodium 75 mcg 05/23/24 06:30 05/23/24 05:39 Levothyroxine Sodium 75 Mcg Tablet PO 06/22/24 06:29 75 mcg DAILYBB CHRISTINA Administration Pantoprazole Sodium 40 mg 05/23/24 09:00 05/23/24 09:05 Pantoprazole 40 Mg Tab PO 06/22/24 08:59 40 mg QAM CHRISTINA Administration Paroxetine HCl 40 mg 05/23/24 09:00 05/23/24 09:03 Paroxetine Hcl 20 Mg Tab PO 06/22/24 08:59 40 mg QAM CHRISTINA Administration Ropinirole HCl 0.25 mg 05/23/24 00:25 05/23/24 02:53 Ropinirole Hcl 0.25 Mg Tablet PO 06/22/24 00:24 Not Given HS CHRISTINA Umeclidinium/Vilanterol 1 puffs 05/23/24 09:00 05/23/24 09:02 Umeclidinium/Vilanterol 62.5/25mcg 7 Puffs/Inhaler INH 06/22/24 08:59 1 puffs DAILY CHRISTINA Administration
[2024-05-23] MEDS: ATORVASTATIN 40 MG TAB PO SCH (20:12)
[2024-05-23] MEDS: CETIRIZINE HCL 10 MG TABLET PO SCH (20:13)
[2024-05-23] MEDS: MONTELUKAST SODIUM 10 MG TABLET PO SCH (20:13)
[2024-05-23] MEDS: traMADol HCL 50 MG TABLET PO PRN (23:14)
[2024-05-24 07:39] LABS: Hematocrit (blood only) 36.2 % (37.0-47.0); Hemoglobin 11.7 g/dl (12.0-16.0); Mean Corpuscular Hemoglobin 31.1 pg (25.0-34.0); Mean Corpuscular Hgb Conc 32.3 g/dL (32.0-36.0); Mean Corpuscular Volume 96.3 fL (80.0-100.0); Mean Platelet Volume 10.1 fL (9.4-12.4); Platelet Count 354 K/uL (130-400); RDW Coefficient of Variation 13.4 % (11.5-14.5); RDW Standard Deviation 47.8 fL (36.4-46.3); Red Blood Count 3.76 M/uL (4.20-5.40); White Blood Count 10.37 K/ul (4.8-10.8)
[2024-05-24 07:56] LABS: BUN Creatinine Ratio 21.9 (10-20); Calcium 9.1 mg/dl (8.6-10.3); Creatinine Clr Calc Pharmacy 38.7 ml/min; Est GFR (African American) 41.2 ml/min; Est GFR (Non-African American) 35.6 ml/min; Magnesium 2.2 mg/dl (1.7-2.4); Phosphorus 3.4 mg/dl (2.5-4.9); Potassium 4.1 mmol/L (3.5-5.1)
--- NOTE | 2024-05-24 17:08 | Hospitalist Progress Note ---
Date of Service May 24, 2024 Assessment & Plan (1) MANDY (acute kidney injury): Plan Ms. Danni Patricio is a 73y/o woman with PMHx of DM type II, CKD stage III, hypothyroidism, HLD, COPD, chronic respiratory failure with hypoxia, systolic heart failure due to idiopathic cardiomyopathy, HTN, vitamin D deficiency, GERD without esophagitis, osteoarthritis, macular degeneration, anxiety/depression, tobacco use disorder and other problems admitted for MANDY and placement. Patient recently admitted for "blacking out" with subsequent right lateral tibial plateau fracture. Patient discharged 05/22 for rehab, but returned that evening due to "conditions" of rehab. Patient with multiple medication adjustments, including discontinuation of lisinopril and atenolol due to lower resting BP. MANDY noted on admission, will hold home furosemide. #Ambulatory dysfunction #Recent Right lateral tibial plateau fracture c/b hemarthrosis #Recent Left ankle sprain R knee joint effusion noted on R knee XR, no fx's were noted. Ortho consult: s/p aspiration of 48cc blood, cultures sent 05/16. NGTD L foot XR w/ no acute fx or dislocation, but does note a possible punctate foreign body. Podiatry consult pending. Continue R knee immobilzation Continue High tide cam boot for left foot PT/OT ordered: rehab v home health if son can be present #Hx of hypertension #Recent Syncope & Collapse: Recent work up unrevealing Home antihypertensive discontinued last admission (lisinopril and atenolol dc'd last admission). CTM #MANDY CKD stage III attempted to resume home lasix, however, will hold and CTM BMP patient denies issues with persistent edema resolved, resume lasix likely zan. #COPD, Chronic Respiratory Failure w/ Hypoxia: CXR & RVP both negative. Notable expiratory wheezing heard on exam. Uses 2L O2 HS at baseline - ordered. Continue home meds. 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 SSI regimen while inpatient. BSG checks ACHS. 6.5% 05/17/2024 Other Chronic Medical Conditions: GERD, hypothyroidism, osteoarthritis, HLD, seasonal allergies, anxiety/depression --> Can continue home meds for these specific conditions. DVT Prophylaxis: SQ Heparin Code Status: FULL CODE PCP: Franca Lilly MD Disposition: Admit to Med/Surg Admission and Anticipated Discharge Date Admission Date: May 22, 2024 Subjective Denies any new symptoms and reports feeling well/stable over all reports eating ok and moving bowels ok, reports chronic cough. Physical Exam Physical Exam: Constitutional: WD/WN Respiratory: normal respiratory effort, lungs clear to auscultation Cardiovascular: RRR, no murmur, no edema Musculoskeletal: right knee immobilizer in place, improving left foot ecchymosis Results & Data Results & Data Vital Signs (Past 12 Hours) Vital Signs Temp Pulse Resp BP Pulse Ox O2 Del Method O2 Flow Rate 05/24/24 15:30 36.8 C 64 18 97/59 L 91 Room Air 05/24/24 07:20 Nasal Cannula 2 05/24/24 07:04 36.5 C 59 L 18 104/67 93 Room Air
[2024-05-25 07:09] LABS: Hematocrit (blood only) 35.2 % (37.0-47.0); Hemoglobin 11.7 g/dl (12.0-16.0); Mean Corpuscular Hemoglobin 31.5 pg (25.0-34.0); Mean Corpuscular Hgb Conc 33.2 g/dL (32.0-36.0); Mean Corpuscular Volume 94.9 fL (80.0-100.0); Mean Platelet Volume 9.9 fL (9.4-12.4); Platelet Count 386 K/uL (130-400); RDW Coefficient of Variation 13.4 % (11.5-14.5); RDW Standard Deviation 47.1 fL (36.4-46.3); Red Blood Count 3.71 M/uL (4.20-5.40); White Blood Count 10.03 K/ul (4.8-10.8)
[2024-05-25 07:27] LABS: BUN Creatinine Ratio 22.4 (10-20); Calcium 9.1 mg/dl (8.6-10.3); Creatinine Clr Calc Pharmacy 37.2 ml/min; Potassium 4.1 mmol/L (3.5-5.1)
--- NOTE | 2024-05-25 15:01 | Hospitalist Progress Note ---
Date of Service May 25, 2024 Assessment & Plan (1) MANDY (acute kidney injury): Plan Ms. Danni Patricio is a 73y/o woman with PMHx of DM type II, CKD stage III, hypothyroidism, HLD, COPD, chronic respiratory failure with hypoxia, systolic heart failure due to idiopathic cardiomyopathy, HTN, vitamin D deficiency, GERD without esophagitis, osteoarthritis, macular degeneration, anxiety/depression, tobacco use disorder and other problems admitted for MANDY and placement. Patient recently admitted for "blacking out" with subsequent right lateral tibial plateau fracture. Patient discharged 05/22 for rehab, but returned that evening due to "conditions" of rehab. Patient with multiple medication adjustments, including discontinuation of lisinopril and atenolol due to lower resting BP. MANDY noted on admission, will hold home furosemide. #Ambulatory dysfunction #Recent Right lateral tibial plateau fracture c/b hemarthrosis #Recent Left ankle sprain R knee joint effusion noted on R knee XR, no fx's were noted. Ortho consult: s/p aspiration of 48cc blood, cultures sent 05/16. NGTD L foot XR w/ no acute fx or dislocation, but does note a possible punctate foreign body. Podiatry consult pending. Continue R knee immobilzation Continue High tide cam boot for left foot PT/OT ordered: rehab v home health if son can be present #Hx of hypertension #Recent Syncope & Collapse: Recent work up unrevealing Home antihypertensive discontinued last admission (lisinopril and atenolol dc'd last admission). CTM #MANDY CKD stage III attempted to resume home lasix, however, will hold and CTM BMP patient denies issues with persistent edema resolved, resume lasix in 1-2 days #COPD, Chronic Respiratory Failure w/ Hypoxia: CXR & RVP both negative. Notable expiratory wheezing heard on exam. Uses 2L O2 HS at baseline - ordered. Continue home meds. 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 SSI regimen while inpatient. BSG checks ACHS. 6.5% 05/17/2024 Other Chronic Medical Conditions: GERD, hypothyroidism, osteoarthritis, HLD, seasonal allergies, anxiety/depression --> Can continue home meds for these specific conditions. DVT Prophylaxis: SQ Heparin Code Status: FULL CODE PCP: Franca Lilly MD Disposition: Admit to Med/Surg Admission and Anticipated Discharge Date Admission Date: May 22, 2024 Subjective Denies any new symptoms and reports feeling well/stable over all reports eating ok and moving bowels ok, reports chronic cough. Physical Exam Physical Exam: Constitutional: WD/WN Respiratory: normal respiratory effort, lungs clear to auscultation Cardiovascular: RRR, no murmur, no edema Musculoskeletal: right knee immobilizer in place, improving left foot ecchymosis Results & Data Results & Data Vital Signs (Past 12 Hours) Vital Signs Temp Pulse Resp BP Pulse Ox O2 Del Method O2 Flow Rate 05/25/24 14:59 36.4 C L 71 18 102/64 92 Nasal Cannula 2 05/25/24 07:55 36.6 C 61 16 102/62 93 Nasal Cannula 2 05/25/24 07:15 Nasal Cannula 2
[2024-05-26 07:14] VITALS: RESP 16
--- NOTE | 2024-05-26 11:55 | Discharge Summary ---
Date of Service May 26, 2024 Admission HPI Per Admitting Provider History obtained from patient and records. Medical history is significant for chronic respiratory failure secondary to COPD on home O2 at night, chronic systolic/diastolic heart failure (EF of 55-60% TTE 2023), HTN, DM 2 on oral meds, CRI baseline creatinine 1.4, hypothyroidism, mood disorder, ongoing tobacco abuse. Recent confinement May 16 to 2023 for syncope possibly vasovagal. Lower extremity wounds from fall. Patient discharged to [facility] today for rehab. Patient displaced upon arrival at rehab facility. Place was too busy and crowded for her. Patient requested to be brought back to ER. Patient denies chest pain, SOB, abdominal pain symptoms. Medical Historyas above Surgical History : BTL, sinus surgery, nasal septum repair, wrist surgery cat aract surgery Family History : Heart disease Personal/Social history : Half pack daily, no chronic EtOH intake, disabled Admission Exam Per Admitting Provider GENERAL: comfortable, chronically ill,, no respiratory distress SKIN: Normal color, warm HEENT: pink palpebral conjunctivae, no ptosis, dry buccal mucosa, nasal cannula in place NECK : Supple, no tenderness CHEST : Decreased breath sounds, no tenderness HEART : RRR, no obvious murmurs ABDOMEN: Some distention, nontender EXTREMITIES : Minimal LE swelling, RLE tenderness, no other conspicuous deformities noted NEUROLOGIC : Coherent, no facial asymmetry, no other gross focality Principal Diagnosis Ambulatory dysfunction Recent right lateral tibial plateau fracture c/b hemarthrosis Recent left ankle sprain History of hypertension History of syncope and collapse, lisinopril and atenolol discontinued during last admission Discharge Exam Constitutional: WD/WN Respiratory: normal respiratory effort, lungs clear to auscultation Cardiovascular: RRR, no murmur, no edema Musculoskeletal: right knee immobilizer in place, improving left foot ecchymosis Discharge Data Allergies Allergy/AdvReac Type Severity Reaction Status Date / Time adhesive Allergy Intermediate RASH Verified 05/22/24 20:18 Quinolones Allergy Intermediate LEVAQUIN Verified 05/22/24 20:18 codeine AdvReac Severe "BECAME Verified 05/22/24 20:18 ADDICTED TO MED" PREFERS NOT TO TAKE IF POSSIBLE. morphine AdvReac Severe ADDICTION-PREFERS Verified 05/22/24 20:18 NOT TO TAKE IF POSSIBLE. linagliptin AdvReac Mild hypoglycemi Verified 05/22/24 20:18 a Consultations 05/22/24 19:27 ED Decision to Admit Stat Hospital Course (1) MANDY (acute kidney injury): Plan Ms. Danni Patricio is a 73y/o woman with PMHx of DM type II, CKD stage III, hypothyroidism, HLD, COPD, chronic respiratory failure with hypoxia, systolic heart failure due to idiopathic cardiomyopathy, HTN, vitamin D deficiency, GERD without esophagitis, osteoarthritis, macular degeneration, anxiety/depression, tobacco use disorder and other problems admitted for MANDY and placement. Patient recently admitted for "blacking out" with subsequent right lateral tibial plateau fracture. Patient discharged 05/22 for rehab, but returned that evening due to "conditions" of rehab. Patient with multiple medication adjustments, including discontinuation of lisinopril and atenolol due to lower resting BP. MANDY noted on admission, will hold home furosemide. She was managed for the following: #Ambulatory dysfunction #Recent Right lateral tibial plateau fracture c/b hemarthrosis #Recent Left ankle sprain R knee joint effusion noted on R knee XR, no fx's were noted. Ortho consult: s/p aspiration of 48cc blood, cultures sent 05/16. NGTD L foot XR w/ no acute fx or dislocation, but does note a possible punctate foreign body. Podiatry consult pending. Continue R knee immobilzation Continue High tide cam boot for left foot PT/OT ordered: rehab v home health if son can be present #Hx of hypertension #Recent Syncope & Collapse: Recent work up unrevealing Home antihypertensive discontinued last admission (lisinopril and atenolol dc'd last admission). CTM #MANDY CKD stage III attempted to resume home lasix, however, will hold and CTM BMP patient denies issues with persistent edema resolved, resume lasix after eval/repeat labs as OP in about 3-5 days. #COPD, Chronic Respiratory Failure w/ Hypoxia: CXR & RVP both negative. Notable expiratory wheezing heard on exam. Uses 2L O2 HS at baseline - ordered. Continue home meds. 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 SSI regimen while inpatient. BSG checks ACHS. 6.5% 05/17/2024 Other Chronic Medical Conditions: GERD, hypothyroidism, osteoarthritis, HLD, seasonal allergies, anxiety/depression --> Can continue home meds for these specific conditions. DVT Prophylaxis: SQ Heparin Code Status: FULL CODE PCP: Franca Lilly MD Disposition: Admit to Med/Surg Patient is being discharged to SNF with following instruction at the point of discharge: Follow-up with your primary care physician within a week time and likely you will need labs CBC/CMP/magnesium/phosphorus. Because of syncope and collapse, your lisinopril and atenolol was discontinued during last admission. Your lisinopril was held due to acute kidney injury over CKD, you will need your labs repeated in about 3 to 5 days time upon discharge and further evaluation by physician for resuming your lisinopril. Continue with physical therapy at rehab. Take your medications as prescribed. Please make sure that you are able to get your medications today by calling your pharmacy before you leave the hospital so that your treatment continuity is not broken. Home Health Attestation I certify that this patient is under my care and that I, or a physicians engineer third assistant working with me, had a face to-face encounter that meets the home health [id number] encounter requirements with this patient. The encounter with the patient was in whole, or in part, for the following medical condition, which is the primary reason for home health care (list medical condition): I certify that, based on my findings, the following services are medically necessary home health services: My clinical findings support the need for the above services because: Further, I certify that my clinical findings support that this patient is homebound (i.e. absences from home require considerable and taxing effort and are for medical reasons or baptism services or infrequently or of short duration when for other reasons) because: Certification for Home Health Services: Based on the above findings, I certify that this patient is confined to the home and needs intermittent residential care, physical therapy and/or speech therapy or continues to need occupational therapy. The patient is under my care, and I have initiated the establishment of the plan of care. This patient will be followed by a physician who will periodically review the plan of care. Total Time Total Time Spent Total Time Spent (In Minutes): 40 Discharge Plan Discharge Items Patient Disposition: Home - Self-Care Reason For Visit: ARF Discharge Diagnosis: Ambulatory dysfunction Recent right lateral tibial plateau fracture c/b hemarthrosis Recent left ankle sprain History of hypertension History of syncope and collapse, lisinopril and atenolol discontinued during last admission Condition on Discharge: Good Activity: As commented below Activity Comment: continue w/ PT/OT. Non-emergency contact: Primary Care Provider Call non-emergency contact if: you have any medication questions, your symptoms worsen and your temperature is above 101 Follow-up/Referrals: Franca Lilly MD [Primary Care Provider] - Diet: Carb Consistent or DM2 and Heart Healthy Addtl Attending Provider Instructions: Follow-up with your primary care physician within a week time and likely you will need labs CBC/CMP/magnesium/phosphorus. Because of syncope and collapse, your lisinopril and atenolol was discontinued during last admission. Your lisinopril was held due to acute kidney injury over CKD, you will need your labs repeated in about 3 to 5 days time upon discharge and further evaluation by physician for resuming your lisinopril. Continue with physical therapy at rehab. Take your medications as prescribed. Please make sure that you are able to get your medications today by calling your pharmacy before you leave the hospital so that your treatment continuity is not broken. Pending Studies at Discharge: No Stand-Alone Forms: My [facility] [employer], Smoking Cessation Medications and DC Order Prescriptions: Continued cholecalciferol (vitamin D3) 50,000 unit Tablet 50,000 unit PO WK Rx Instructions: TAKE THIS MED EVERY WEDNESDAY. montelukast 10 mg tablet 10 mg PO HS levothyroxine 75 mcg Tablet 75 mcg PO QAM gabapentin 300 mg Capsule 300 mg PO USEASDIRECTD Rx Instructions: 1 tab AM; 1 tab Midday; 2 tabs PM ropinirole 0.25 mg Tablet 0.25 mg PO HS Rx Instructions: TAKE ONE TABLET BY MOUTH EVERY DAY AT BEDTIME. ipratropium bromide 0.02 % Solution 2.5 ml continuous nebulization Q4H PRN (Reason: Shortness Of Breath Or Wheezing) clotrimazole 10 mg Melony 10 mg Mucous Membrane 5XD PRN (Reason: THRUSH) azelastine 137 mcg (0.1 %) aerosol,spray 2 spray Intranasal BID nitroglycerin [Nitrostat] 0.4 mg Tablet, Sublingual 0.4 mg Sublingual UD PRN (Reason: Chest Pain) Rx Instructions: NEEDED FOR CHEST PAIN : ONE TABLET UNDER THE TONGUE EVERY 5 MINUTES UP TO 3 DOSES. pantoprazole 40 mg Tablet,Delayed Release (Dr/Ec) 40 mg PO QAM paroxetine HCl 40 mg tablet 40 mg PO QAM levalbuterol HCl 1.25 mg/3 mL Solution For Nebulization 1.25 mg INHALATION QID PRN (Reason: Shortness Of Breath Or Wheezing) levocetirizine 5 mg Tablet 5 mg PO PM calcium carbonate 500 mg calcium (1,250 mg) Tablet,Chewable 500 mg PO 5XD PRN (Reason: Gi Upset) guaifenesin [Mucinex] 600 mg Tablet Extended Release 12hr 600 mg PO BID PRN (Reason: Cough) aspirin 81 mg Capsule 81 mg PO QAM atorvastatin 40 mg tablet 40 mg PO HS alendronate 70 mg tablet 70 mg PO WK Rx Instructions: TAKE 1 TABLET BY MOUTH ONCE A WEEK WITH 8 OZ WATER 30 MIN BEFORE 1ST MEAL OF THE DAY, REMAIN UPRIGHT FOR 30 MIN AFTER. albuterol sulfate 90 mcg/actuation HFA aerosol inhaler 2 puff INHALATION QID PRN (Reason: SOB/Wheezing) Rx Instructions: INHALE TWO PUFFS BY MOUTH FOUR TIMES A DAY PRN FOR SOB/WHEEZING. Tradjenta 5 mg tablet 5 mg PO QAM Trelegy Ellipta 200-62.5-25 mcg blister with device 1 inh INHALATION DAILY Rx Instructions: Inhale 1 puff by mouth in the morning. lidocaine [Lidoderm] 5 % adhesive patch,medicated 1 patch topical DAILY PRN (Reason: Pain) Rx Instructions: Leave on most painful area for up to 12 hrs. tizanidine 4 mg Tablet 2 mg PO TID PRN (Reason: muscle spasticity) 30 Days Qty: 90 0RF nystatin 100,000 unit/gram cream 1 applic TOPICAL BID Rx Instructions: for 20 days Held potassium chloride 10 mEq tablet,ER particles/crystals 10 meq PO DAILY Hold Instructions: Resume on 06/06/24. Hold until lasix is on hold . furosemide 20 mg tablet 20 mg PO DAILY Hold Instructions: Resume on 06/01/24. Hold until labs/further eval by PCP within a week time Discontinued benzonatate 100 mg Capsule 100 mg PO BID PRN (Reason: Cough) atenolol 25 mg tablet 25 mg PO DAILY Rx Instructions: at noon lisinopril 10 mg tablet 10 mg PO QAM Discharge Orders: Discharge Order (Routine); Ordered 05/26/24 Ordered By: Tiit Hartman Admission Data Admit Date/Time: 05/22/24 23:55 Attending Provider: Titi Hartman Admit Provider: Jose Reid Primary Care Provider: Franca Lilly Other Providers: Jose Reid; [place],[facility]; Seng Chan at [place]; [place]
[2024-05-26 15:59] VITALS: TEMP 97.3; O2SAT 95
[2024-05-26 17:23] VITALS: BP 102/64; PULSE 68
[2024-05-28] MEDS ORDERED: ERGOCALCIFEROL 1250 MCG (50,000 UNITS) CAP PO SCH (09:00)
== END 2024-05-26 18:27 | DRG 683 ==
LOC: ED 18:56 → SUATTDRO 23:55 → 3N 23:55

== ENCOUNTER 2024-07-24 16:25 | Inpatient (IN) ==
[2024-07-24 17:02] LABS: Basophils # (auto) 0.04 K/uL (0.00-0.20); Basophils % (auto) 0.2 %; Eosinophils # (auto) 0.19 K/uL (0.00-0.50); Eosinophils % (auto) 1.1 %; Hematocrit (blood only) 34.4 % (37.0-47.0); Hemoglobin 11.7 g/dl (12.0-16.0); Immature Granulocytes # (auto) 0.21 K/uL (0.01-0.20); Immature Granulocytes % (auto) 1.2 %; Lymphocytes # (auto) 2.22 K/uL (1.20-3.40); Lymphocytes % (auto) 13.1 %; Mean Corpuscular Hemoglobin 30.8 pg (25.0-34.0); Mean Corpuscular Volume 90.5 fL (80.0-100.0); Mean Platelet Volume 9.9 fL (9.4-12.4); Monocytes # (auto) 1.62 K/uL (0.11-0.59); Monocytes % (auto) 9.6 %; Neutrophils # (auto) 12.67 K/uL (1.40-6.50); Neutrophils % (auto) 74.8 %; Platelet Count 348 K/uL (130-400); RDW Coefficient of Variation 13.4 % (11.5-14.5); RDW Standard Deviation 45.1 fL (36.4-46.3); White Blood Count 16.95 K/ul (4.8-10.8)
[2024-07-24 17:27] LABS: Albumin Globulin Ratio 0.9 (0.9-2); Albumin Level 3.2 gm/dl (3.4-5.0); BUN Creatinine Ratio 14.4 (10-20); Bilirubin,Total 0.7 mg/dl (0.2-1.0); Calcium 8.8 mg/dl (8.6-10.3); Creatinine Clr Calc Pharmacy 28.4 ml/min; Globulin 3.7 gm/dl (2.5-4.0); Potassium 3.2 mmol/L (3.5-5.1); Total Protein 6.9 gm/dl (6.0-8.3)
--- NOTE | 2024-07-24 17:42 | Emergency Department Note ---
Impression & Plan Sepsis, Acute UTI, Acute right flank pain, Weakness ED Provider Note Provider: Ceasar Detxer MD CHIEF COMPLAINT: Cough, diarrhea, short of breath HISTORY OF PRESENT ILLNESS: Patient is a 74-year-old female past medical history including COPD, heart failure, hypertension, diabetes, CKD, hypothyroidism, mood disorder presenting here today reporting since Wednesday over the past 3 to 4 days been having a cough with headache and some sore throat/mouth. Having some diarrhea generalized weakness. Has some headache but denies significant chest pain. Some pain in the right low back. No falls reported. No sick contacts. PAST MEDICAL HISTORY: As noted above MEDICATIONS: Reviewed home medications SOCIAL HISTORY: Smoker PHYSICAL EXAM: GENERAL: alert and oriented in no acute distress on stretcher fatigued in appearance Head: normocephalic and atraumatic EYES: No injection, discharge or icterus. PERRL, EOMI. NECK: Trachea midline. Supple. ENT: Mucous membranes pink and moist. Pharynx without erythema or exudate. LUNGS: Airway patent. No retractions. Breath sounds expiratory wheeze HEART: Regular rate and rhythm. No chest wall tenderness ABDOMEN: Soft and non-tender, without guarding or rebound. No significant flank tenderness. SKIN: Acyanotic, warm, dry, without rashes EXTREMITIES: Without swelling, tenderness or deformity with the right lower extremity in an exterior knee brace. NEUROLOGICAL: No focal deficits. No aphasia. No facial droop or slurred speech. EK bpm normal sinus rhythm. No PVC or PAC. No acute ST segment elevation or depression with QTc of 461. CONTINUOUS CARDIAC MONITORING: was ordered and showed a heart rate of 60s to 70s bpm in normal sinus rhythm with high amount of artifact Patient's laboratory studies and imaging reviewed. Differential includes Infection, dehydration, metabolic abnormality, hypo/hyperglycemia, electrolyte disturbance, anemia, hypoxia, pneumonia, cardiac sources, intracerebral event/neurologic, back pain, back infection, cauda equina, kidney stone, gastrointestinal abnormality, UTI, DVT, cellulitis, URI, as well as other pathologies. IMPRESSION/MEDICAL DECISION MAKING: Patient upon arrival afebrile but with some borderline blood pressures. Received a liter of normal saline. Blood work here with leukocytosis 16.9 minimal anemia of 11.7. Very slight hypokalemia 3.2. Patient states decreased food intake although has been trying to hydrate. Creatinine 1.8 seems near baseline. No significant LFT abnormalities. Troponin lipase blood cultures procalcitonin and lactate sent. Does have history of CHF by report of the most recent echo without significant EF depression. Received a liter of normal saline fluid resuscitation. Will obtain a chest x-ray given her cough. Given a DuoNeb with her COPD history and she does sound a little bit wheezy. Did review hospitalization record from here when she had a tibial plateau fracture. Patient sounds infectious in nature. CT abdomen pelvis to look for possible source given her right flank pain in addition to the chest x-ray be obtained. Lactate not elevated procalcitonin severely elevated 25. Negative respiratory viral panel. Mild pulmonary vascular congestion on the chest x-ray per radiology and will avoid additional fluid beyond 1 L as able. Blood pressure has improved some. CT abdomen pelvis per radiology without evidence of hydronephrosis or obstructing kidney stone. Some enlarged retroperitoneal lymph nodes are noted with mild hepatic steatosis and cholelithiasis. Again patient's abdomen is fairly benign. Houser catheter be placed for urine as I have significant concern for UTI or pyelonephritis. Reassessment patient's breathing is improved a little bit after the nebulizer. Discussed findings and she was agreeable to stay for further care given her complaints and our concerns for developing sepsis. 1000 mL normal saline given for fluid but held further to avoid fluid overload. Will cover empirically with Zosyn for antibiotic coverage. Will bring into the hospital given her weakness with elevated procalcitonin and concerns for sepsis. Hospitalist contacted. Urine does later return floridly positive for infection. DIAGNOSIS: Sepsis, acute UTI, weakness, right flank pain DISPOSITION: Hospitalist will evaluate Patient was agreeable with this plan. Past Med/Surg History Problem List (Updated 07/24/24 @ 21:16 by Ceasar Dexter M.D.) Weakness (Acute) Acute right flank pain (Acute) Acute UTI (Acute) Hypotension MANDY (acute kidney injury) (Acute) Debilitated (Acute) Leukocytosis (Acute) Bilateral leg pain (Acute) Contusion of left foot Left ankle pain Hemarthrosis, right knee Right leg weakness (Acute) Acute pain of right knee (Acute) Fall (Acute) Sprain of left foot (Acute) Ambulatory dysfunction (Acute) Syncope and collapse COPD exacerbation Hypoxic (Acute) COPD (chronic obstructive pulmonary disease) (Acute) Dehydration Syncope (Acute) Acute hypotension (Acute) Laceration (Acute) Sepsis (Acute) COPD with acute exacerbation (Acute) Acute respiratory failure (Acute) COPD (chronic obstructive pulmonary disease) (Chronic) Migraine (Chronic) Anxiety (Chronic) Depression (Chronic) H/O tubal ligation (Chronic) Tracheostomy obstruction (Acute) Medical History (Updated 07/24/24 @ 21:16 by Ceasar Dexter M.D.) COPD (chronic obstructive pulmonary disease) Diabetes Social History Smoking Status: Current every day smoker Tobacco Type: Cigarettes Second Hand Exposure: Yes; Do You Dip or Chew Tobacco: No; Hx Alcohol Use: No Hx Substance Use: No Preferred Language: Nepali Communication Ability: Effective Pie Crust Mixer Required: No Beliefs That Will Affect Care: None Current Living Situation: Alone Feels Safe at Home: Yes Assistive Devices: Cane, Oxygen - at Night and Walker Allergies Allergies Allergy/AdvReac Type Severity Reaction Status Date / Time adhesive Allergy Intermediate RASH Verified 07/24/24 20:45 Quinolones Allergy Intermediate LEVAQUIN Verified 07/24/24 20:45 codeine AdvReac Severe "BECAME Verified 07/24/24 20:45 ADDICTED TO MED" PREFERS NOT TO TAKE IF POSSIBLE. morphine AdvReac Severe ADDICTION-PREFERS Verified 07/24/24 20:45 NOT TO TAKE IF POSSIBLE. linagliptin AdvReac Mild hypoglycemi Verified 07/24/24 20:45 a Home Meds Home Medications Medication Instructions Recorded Confirmed azelastine 137 mcg (0.1 %) nasal 2 spray intranasal BID 10/09/18 07/24/24 spray calcium carbonate 500 mg PO 5XD PRN Gi Upset 10/09/18 07/24/24 cholecalciferol (vitamin D3) 1,250 50,000 unit PO WK 10/09/18 07/24/24 mcg (50,000 unit) tablet clotrimazole 10 mg tyrell 10 mg mucous membrane 5XD PRN 10/09/18 07/24/24 THRUSH furosemide 20 mg tablet 20 mg PO DAILY 10/09/18 07/24/24 gabapentin 300 mg capsule 300 mg PO USEASDIRECTD 10/09/18 07/24/24 ipratropium bromide 0.02 % 2.5 ml continuous nebulization Q4H 10/09/18 07/24/24 solution for inhalation PRN Shortness Of Breath Or Wheezing levalbuterol HCl 1.25 mg/3 mL 1.25 mg inhalation QID PRN 10/09/18 07/24/24 solution for nebulization Shortness Of Breath Or Wheezing levocetirizine 5 mg tablet 5 mg PO PM 10/09/18 07/24/24 levothyroxine 75 mcg tablet 75 mcg PO QAM 10/09/18 07/24/24 montelukast 10 mg tablet 10 mg PO HS 10/09/18 07/24/24 nitroglycerin 0.4 mg sublingual 0.4 mg sublingual UD PRN Chest Pain 10/09/18 07/24/24 tablet (Nitrostat) pantoprazole 40 mg tablet,delayed 40 mg PO QAM 10/09/18 07/24/24 release paroxetine HCl 40 mg tablet 40 mg PO QAM 10/09/18 07/24/24 potassium chloride 10 mEq 10 meq PO DAILY 10/09/18 05/22/24 tablet,extended release(part/cryst) ropinirole 0.25 mg tablet 0.25 mg PO HS 10/09/18 07/24/24 aspirin 81 mg capsule 81 mg PO QAM 01/27/22 07/24/24 guaifenesin 600 mg tablet, 600 mg PO BID PRN Cough 01/27/22 07/24/24 extended release 12 hr (Mucinex) albuterol sulfate 90 mcg/actuation 2 puff inhalation QID PRN 05/16/24 07/24/24 aerosol inhaler SOB/Wheezing alendronate 70 mg tablet 70 mg PO WK 05/16/24 07/24/24 atorvastatin 40 mg tablet 40 mg PO HS 05/16/24 07/24/24 fluticasone fur. 200 mcg-umeclid 1 inh inhalation DAILY 05/16/24 07/24/24 62.5 mcg-vilant 25 mcg inhalat.powder (Trelegy Ellipta) lidocaine 5 % topical patch 1 patch topical DAILY PRN Pain 05/16/24 07/24/24 (Lidoderm) linagliptin 5 mg tablet (Tradjenta) 5 mg PO QAM 05/16/24 07/24/24 nystatin 100,000 unit/gram topical 1 applic topical BID 05/22/24 07/24/24 cream budesonide 0.5 mg/2 mL suspension 0.5 mg inhalation QID PRN 07/24/24 07/24/24 for nebulization Shortness Of Breath Or Wheezing Results & Data (ED) Vital Signs Vital Signs - 24 hr 07/24/24 16:31 07/24/24 16:31 07/24/24 16:59 Temperature 37.1 C 37.1 C Temperature Source Oral Oral Pulse Rate 68 71 Pulse Rate [Apical] 68 Pulse Rate from SpO2 Sensor Pulse Rhythm Regular Pulse Rhythm [Apical] Regular Pulse Strength Normal Pulse Strength [Apical] Normal Respiratory Rate 16 16 Respiratory Effort / Characteristics Non-Labored Non-Labored Respiratory Depth Normal Normal Respiratory Pattern Regular Regular Blood Pressure 93/54 L Blood Pressure [Right Arm] 93/54 L Blood Pressure Mean 67 Blood Pressure Mean [Right Arm] 67 Blood Pressure Position Lying Blood Pressure Position [Right Arm] Lying Pulse Oximetry 96 95 Oxygen Delivery Method Room Air Room Air Sepsis Recent Fever Within 48 Hours Yes Sepsis New/Unexplained Change in Mental Status No Sepsis Action Taken by Nursing No Action Required 07/24/24 17:09 07/24/24 18:30 07/24/24 18:51 Temperature Temperature Source Pulse Rate Pulse Rate [Apical] 91 H 67 Pulse Rate from SpO2 Sensor Pulse Rhythm Pulse Rhythm [Apical] Regular Regular Pulse Strength Pulse Strength [Apical] Normal Normal Respiratory Rate 16 16 Respiratory Effort / Characteristics Non-Labored Non-Labored Respiratory Depth Normal Normal Respiratory Pattern Regular Regular Blood Pressure 120/73 Blood Pressure [Right Arm] 91/52 L 95/53 L Blood Pressure Mean 107 Blood Pressure Mean [Right Arm] 65 67 Blood Pressure Position Blood Pressure Position [Right Arm] Lying Lying Pulse Oximetry 96 98 Oxygen Delivery Method Room Air Room Air Sepsis Recent Fever Within 48 Hours Sepsis New/Unexplained Change in Mental Status Sepsis Action Taken by Nursing 07/24/24 18:51 07/24/24 18:51 07/24/24 19:24 Temperature Temperature Source Pulse Rate 69 Pulse Rate [Apical] Pulse Rate from SpO2 Sensor 70 Pulse Rhythm Pulse Rhythm [Apical] Pulse Strength Pulse Strength [Apical] Respiratory Rate 22 Respiratory Effort / Characteristics Respiratory Depth Respiratory Pattern Blood Pressure 120/73 120/73 99/54 L Blood Pressure [Right Arm] Blood Pressure Mean 107 107 69 Blood Pressure Mean [Right Arm] Blood Pressure Position Blood Pressure Position [Right Arm] Pulse Oximetry 91 Oxygen Delivery Method Room Air Sepsis Recent Fever Within 48 Hours Sepsis New/Unexplained Change in Mental Status Sepsis Action Taken by Nursing 07/24/24 19:30 07/24/24 19:33 07/24/24 20:03 Temperature Temperature Source Pulse Rate 66 Pulse Rate [Apical] Pulse Rate from SpO2 Sensor Pulse Rhythm Pulse Rhythm [Apical] Pulse Strength Pulse Strength [Apical] Respiratory Rate 22 22 Respiratory Effort / Characteristics Respiratory Depth Respiratory Pattern Blood Pressure 99/54 L 100/59 L Blood Pressure [Right Arm] Blood Pressure Mean 74 72 Blood Pressure Mean [Right Arm] Blood Pressure Position Blood Pressure Position [Right Arm] Pulse Oximetry 96 95 Oxygen Delivery Method Room Air Room Air Sepsis Recent Fever Within 48 Hours Sepsis New/Unexplained Change in Mental Status Sepsis Action Taken by Nursing 07/24/24 20:23 07/24/24 20:23 Temperature 36.6 C Temperature Source Oral Pulse Rate 76 Pulse Rate [Apical] Pulse Rate from SpO2 Sensor 76 Pulse Rhythm Pulse Rhythm [Apical] Pulse Strength Pulse Strength [Apical] Respiratory Rate 16 Respiratory Effort / Characteristics Respiratory Depth Respiratory Pattern Blood Pressure 101/51 L Blood Pressure [Right Arm] Blood Pressure Mean 67 Blood Pressure Mean [Right Arm] Blood Pressure Position Blood Pressure Position [Right Arm] Pulse Oximetry 94 Oxygen Delivery Method Room Air Sepsis Recent Fever Within 48 Hours Sepsis New/Unexplained Change in Mental Status Sepsis Action Taken by Nursing Laboratory Data 07/24/24 16:35 07/24/24 16:35 Lab Results 07/24/24 07/24/24 07/24/24 Range/Units 16:35 17:40 20:37 WBC 16.95 H (4.8-10.8) K/ul RBC 3.80 L (4.20-5.40) M/uL Hgb 11.7 L (12.0-16.0) g/dl Hct 34.4 L (37.0-47.0) % MCV 90.5 (80.0-100.0) fL MCH 30.8 (25.0-34.0) pg MCHC 34.0 (32.0-36.0) g/dL RDW Std Deviation 45.1 (36.4-46.3) fL RDW Coeff of Scar 13.4 (11.5-14.5) % Plt Count 348 (130-400) K/uL MPV 9.9 (9.4-12.4) fL Immature Gran % (Auto) 1.2 % Neut % (Auto) 74.8 % Lymph % (Auto) 13.1 % [place] % (Auto) 9.6 % Eos % (Auto) 1.1 % Baso % (Auto) 0.2 % Neut # (Auto) 12.67 H (1.40-6.50) K/uL Lymph # (Auto) 2.22 (1.20-3.40) K/uL [place] # (Auto) 1.62 H (0.11-0.59) K/uL Eos # (Auto) 0.19 (0.00-0.50) K/uL Baso # (Auto) 0.04 (0.00-0.20) K/uL Immature Gran # (Auto) 0.21 H (0.01-0.20) K/uL Sodium 134 L (136-145) mmol/L Potassium 3.2 L (3.5-5.1) mmol/L Chloride 99 (98-107) mmol/L Carbon Dioxide 25 (21-32) mmol/L Anion Gap 10 (3-11) BUN 26 H (6-23) mg/dl Creatinine 1.81 H (0.6-1.2) mg/dl Est Cr Clr Drug Dosing 28.4 ml/min eGFR 29.19 BUN/Creatinine Ratio 14.4 (10-20) Glucose 129 H (70-99(Fasting)) mg/dl Lactate 1.3 (0.4-2.0) mmol/L Calcium 8.8 (8.6-10.3) mg/dl Magnesium 1.7 (1.7-2.4) mg/dl Total Bilirubin 0.7 (0.2-1.0) mg/dl AST 49 H (13-39) U/L ALT 39 (7-52) U/L Alkaline Phosphatase 126 H (34-104) U/L Troponin I High Sens 49.7 H (0-14) pg/ml Total Protein 6.9 (6.0-8.3) gm/dl Albumin 3.2 L (3.4-5.0) gm/dl Globulin 3.7 (2.5-4.0) gm/dl Albumin/Globulin Ratio 0.9 (0.9-2) Lipase 13 (11-82) U/L Procalcitonin 25.30 H (0-0.5) ng/ml Urine Color Yellow Urine Appearance Clear (Clear) Urine pH 6.0 (4.5-7.5) Ur Specific [place] 1.006 (1.000-1.030) Urine Protein Trace H (Negative) Urine Glucose (UA) Negative (Negative) Urine Ketones Negative (Negative) Urine Blood 2+ H (Negative) Urine Nitrite Positive A (Negative) Urine Bilirubin Negative (Negative) Urine Urobilinogen Negative (Negative) Ur Leukocyte Esterase 3+ H (Negative) Urine WBC (Auto) 21-50 H (0-5) /hpf Urine RBC (Auto) 0-2 (0-2) /hpf U Hyaline Cast (Auto) 0-2 (0-2) /lpf U Epithel Cells (Auto) 0-2 (0-2) /hpf Urine Bacteria (Auto) 4+ H (None Seen) Adenovirus (PCR) Not Detected (NotDetected) B. pertussis DNA (PCR) Not Detected (NotDetected) B.parapertussis DNA PCR Not Detected (NotDetected) C. pneumoniae DNA (PCR) Not Detected (NotDetected) Coronavirus OC43 (PCR) Not Detected (NotDetected) Coronavirus HKU1 (PCR) Not Detected (NotDetected) Coronavirus 229E (PCR) Not Detected (NotDetected) SARS-CoV-2 (PCR) Not Detected (NotDetected) Coronavirus NL63 (PCR) Not Detected (NotDetected) Human Metapneumovir PCR Not Detected (NotDetected) Influenza Type A (PCR) Not Detected (NotDetected) Influenza Type B (PCR) Not Detected (NotDetected) M. pneumoniae (PCR) Not Detected (NotDetected) Parainfluenza 1 (PCR) Not Detected (NotDetected) Parainfluenza 2 (PCR) Not Detected (NotDetected) Parainfluenza 3 (PCR) Not Detected (NotDetected) Parainfluenza 4 (PCR) Not Detected (NotDetected) RSV (PCR) Not Detected (NotDetected) Entero/Rhino (PCR) Not Detected (NotDetected) Administered Medications Albumin Human (Albumin 25%) 25 gm in 100 mls @ 50 mls/hr IV ONE ONE Stop: 07/24/24 21:28 Last Admin: 07/24/24 20:39 Dose: 50 mls/hr Documented By: ANJEL Discontinued Medications Albuterol (Albut/Ipratrop 3mg/0.5mg Neb 3 Ml Vial) 3 ml NEB NOW STA; Protocol Stop: 07/24/24 17:46 Last Admin: 07/24/24 18:12 Dose: 3 ml Documented By: ZANDER Piperacillin Sod/Tazobactam Sod (Zosyn) 4.5 gm in 100 mls @ 200 mls/hr IV NOW ONE; Protocol Stop: 07/24/24 19:33 Last Admin: 07/24/24 20:24 Dose: 200 mls/hr Documented By: ANJEL Sodium Chloride (Nss) 1,000 mls @ 999 mls/hr IV .Q1H1M ONE Stop: 07/24/24 20:21 Last Infusion: 07/24/24 20:09 Dose: Infused Documented By: Admin: 07/24/24 18:30 Dose: 999 mls/hr Documented By: MARK Potassium Chloride (Potassium Chloride Crtab 20 Meq Tabcr) 40 meq PO NOW STA Stop: 07/24/24 19:29 Last Admin: 07/24/24 20:24 Dose: 40 meq Documented By: ANJEL Imaging Data Radiologist's Impression: Abdomen/Pelvis CT 07/24/24 17:34 INDICATION: Right-sided pain and chills. COMPARISON: No relevant priors available. TECHNIQUE: Axial CT images of the abdomen and pelvis were obtained without IV contrast administration. Coronal and sagittal reformations were reviewed. FINDINGS: Visualized lung bases appear unremarkable. Small hiatal hernia. Gallstones in the gallbladder. Mild hepatic steatosis. The spleen, pancreas and adrenal glands appear unremarkable. Nonspecific bilateral perinephric fat stranding. Nonobstructing 2 mm right renal calculus. Left renal arterial calcification noted. No hydronephrosis. Bilateral renal cysts measuring up to 2.5 cm. Negative for abdominal aortic aneurysm. Enlarged retroperitoneal lymph nodes measuring up to 1 cm. No evidence of bowel obstruction/colitis/appendicitis. No free air. No drainable fluid collection. The urinary bladder appears unremarkable. Phleboliths in the pelvis. Mild degenerative changes in the spine and hips. No acute osseous abnormality evident. IMPRESSION: 1. Nonobstructing 4 mm right renal calculus. No hydronephrosis. Bilateral renal cysts. 2. Enlarged retroperitoneal lymph nodes measuring up to 1 cm. Follow-up recommended. 3. Cholelithiasis. 4. Mild hepatic steatosis. Electronically signed by Toi Jara 07-24-2024 6:41 PM Chest X-Ray 07/24/24 17:34 INDICATION: Chest pain. TECHNIQUE: Frontal radiograph of the chest. COMPARISON: Radiograph from 05/22/2024. FINDINGS: Cardiomegaly. Mild pulmonary vascular congestion. Subsegmental atelectasis in the lung bases. No infiltrate, pleural effusion or pneumothorax. No acute osseous abnormality evident. IMPRESSION: Mild pulmonary vascular congestion. Electronically signed by Toi Jara 07-24-2024 6:27 PM Discharge Plan Visit Data Chief Complaint: Illness Stated Complaint: Generalized illness ED Provider: Ceasar Dexter Discharge Problem: Sepsis, Acute UTI, Acute right flank pain, Weakness Patient Disposition: Admitted As Inpatient Discharge Instructions Interventions: ED Discharge Assessment Last Done: 07/24/24 20:23 Forms Stand Alone Forms: [facility] [employer] Prescriptions Prescriptions: No Action cholecalciferol (vitamin D3) 50,000 unit Tablet 50,000 unit PO WK Rx Instructions: TAKE THIS MED EVERY WEDNESDAY. potassium chloride 10 mEq tablet,ER particles/crystals 10 meq PO DAILY Hold Instructions: Resume on 06/06/24. Hold until lasix is on hold . Rx Instructions: patient unsure if this is still on hold. No recent fills since March furosemide 20 mg tablet 20 mg PO DAILY Hold Instructions: Resume on 06/01/24. Hold until labs/further eval by PCP within a week time Rx Instructions: Patient confirmed still on hold. montelukast 10 mg tablet 10 mg PO HS levothyroxine 75 mcg Tablet 75 mcg PO QAM gabapentin 300 mg Capsule 300 mg PO USEASDIRECTD Rx Instructions: 1 tab AM; 1 tab Midday; 2 tabs PM ropinirole 0.25 mg Tablet 0.25 mg PO HS Rx Instructions: TAKE ONE TABLET BY MOUTH EVERY DAY AT BEDTIME. ipratropium bromide 0.02 % Solution 2.5 ml continuous nebulization Q4H PRN (Reason: Shortness Of Breath Or Wheezing) clotrimazole 10 mg Tyrell 10 mg Mucous Membrane 5XD PRN (Reason: THRUSH) azelastine 137 mcg (0.1 %) aerosol,spray 2 spray Intranasal BID nitroglycerin [Nitrostat] 0.4 mg Tablet, Sublingual 0.4 mg Sublingual UD PRN (Reason: Chest Pain) Rx Instructions: NEEDED FOR CHEST PAIN : ONE TABLET UNDER THE TONGUE EVERY 5 MINUTES UP TO 3 DOSES. pantoprazole 40 mg Tablet,Delayed Release (Dr/Ec) 40 mg PO QAM paroxetine HCl 40 mg tablet 40 mg PO QAM levalbuterol HCl 1.25 mg/3 mL Solution For Nebulization 1.25 mg INHALATION QID PRN (Reason: Shortness Of Breath Or Wheezing) Rx Instructions: Patient unable to confirm if she still uses this medication or not. levocetirizine 5 mg Tablet 5 mg PO PM calcium carbonate 500 mg calcium (1,250 mg) Tablet,Chewable 500 mg PO 5XD PRN (Reason: Gi Upset) guaifenesin [Mucinex] 600 mg Tablet Extended Release 12hr 600 mg PO BID PRN (Reason: Cough) aspirin 81 mg Capsule 81 mg PO QAM atorvastatin 40 mg tablet 40 mg PO HS alendronate 70 mg tablet 70 mg PO WK Rx Instructions: TAKE 1 TABLET BY MOUTH ONCE A WEEK WITH 8 OZ WATER 30 MIN BEFORE 1ST MEAL OF THE DAY, REMAIN UPRIGHT FOR 30 MIN AFTER. albuterol sulfate 90 mcg/actuation HFA aerosol inhaler 2 puff INHALATION QID PRN (Reason: SOB/Wheezing) Rx Instructions: INHALE TWO PUFFS BY MOUTH FOUR TIMES A DAY PRN FOR SOB/WHEEZING. Tradjenta 5 mg tablet 5 mg PO QAM Trelegy Ellipta 200-62.5-25 mcg blister with device 1 inh INHALATION DAILY Rx Instructions: Inhale 1 puff by mouth in the morning. lidocaine [Lidoderm] 5 % adhesive patch,medicated 1 patch topical DAILY PRN (Reason: Pain) Rx Instructions: Leave on most painful area for up to 12 hrs. nystatin 100,000 unit/gram cream 1 applic TOPICAL BID Rx Instructions: for 20 days budesonide 0.5 mg/2 mL suspension for nebulization 0.5 mg inhalation QID PRN (Reason: Shortness Of Breath Or Wheezing) Referrals Referrals: Franca Lilly MD [Primary Care Provider] -
[2024-07-24] MEDS: ALBUT/IPRATROP 3MG/0.5MG NEB 3 ML VIAL NEB STA (18:12)
--- NOTE | 2024-07-24 18:27 | XRay Report ---
INDICATION: Chest pain. TECHNIQUE: Frontal radiograph of the chest. COMPARISON: Radiograph from 05/22/2024. FINDINGS: Cardiomegaly. Mild pulmonary vascular congestion. Subsegmental atelectasis in the lung bases. No infiltrate, pleural effusion or pneumothorax. No acute osseous abnormality evident. IMPRESSION: Mild pulmonary vascular congestion. Electronically signed by Toi Jara 07-24-2024 6:27 PM
[2024-07-24] MEDS: SODIUM CHLORIDE 0.9% 1,000 ML IV ONE (18:30)
--- NOTE | 2024-07-24 18:42 | CT Scan Report ---
INDICATION: Right-sided pain and chills. COMPARISON: No relevant priors available. TECHNIQUE: Axial CT images of the abdomen and pelvis were obtained without IV contrast administration. Coronal and sagittal reformations were reviewed. FINDINGS: Visualized lung bases appear unremarkable. Small hiatal hernia. Gallstones in the gallbladder. Mild hepatic steatosis. The spleen, pancreas and adrenal glands appear unremarkable. Nonspecific bilateral perinephric fat stranding. Nonobstructing 2 mm right renal calculus. Left renal arterial calcification noted. No hydronephrosis. Bilateral renal cysts measuring up to 2.5 cm. Negative for abdominal aortic aneurysm. Enlarged retroperitoneal lymph nodes measuring up to 1 cm. No evidence of bowel obstruction/colitis/appendicitis. No free air. No drainable fluid collection. The urinary bladder appears unremarkable. Phleboliths in the pelvis. Mild degenerative changes in the spine and hips. No acute osseous abnormality evident. IMPRESSION: 1. Nonobstructing 4 mm right renal calculus. No hydronephrosis. Bilateral renal cysts. 2. Enlarged retroperitoneal lymph nodes measuring up to 1 cm. Follow-up recommended. 3. Cholelithiasis. 4. Mild hepatic steatosis. Electronically signed by Toi Jara 07-24-2024 6:41 PM
[2024-07-24 18:48] LABS: Adenovirus PCR Not Detected (NotDetected); Bordetella parapertussis PCR Not Detected (NotDetected); Bordetella pertussis PCR Not Detected (NotDetected); Chlamydia pneumoniae PCR Not Detected (NotDetected); Coronavirus 229E PCR Not Detected (NotDetected); Coronavirus CoV-2 (COVID19)PCR Not Detected (NotDetected); Coronavirus HKU1 PCR Not Detected (NotDetected); Coronavirus NL63 PCR Not Detected (NotDetected); Coronavirus OC43PCR Not Detected (NotDetected); Human Metapneumovirus PCR Not Detected (NotDetected); Influenza A PCR Not Detected (NotDetected); Influenza B PCR Not Detected (NotDetected); Mycoplasma pneumoniae PCR Not Detected (NotDetected); Parainfluenza Virus 1 PCR Not Detected (NotDetected); Parainfluenza Virus 2 PCR Not Detected (NotDetected); Parainfluenza Virus 3 PCR Not Detected (NotDetected); Parainfluenza Virus 4 PCR Not Detected (NotDetected); Respiratory Syncytial VirusPCR Not Detected (NotDetected); Rhinovirus/Enterovirus PCR Not Detected (NotDetected)
[2024-07-24 18:57] LABS: Troponin I High Sensitivity 49.7 pg/ml (0-14)
[2024-07-24 18:59] LABS: Magnesium 1.7 mg/dl (1.7-2.4)
--- NOTE | 2024-07-24 19:41 | History & Physical Report ---
Date of Service July 24, 2024 Assessment & Plan (1) Hypotension: Plan: Multifactorial: Possible sepsis, leukocytosis, elevated procalcitonin possible sources include atypical pneumonia, UTI rule out C. difficile ARF on CKD chronic respiratory failure secondary to COPD on home O2 at night chronic systolic/diastolic heart failure, some congestion on x-ray, patient intravascularly dry DM 2 on oral meds,, well-controlled as of recent hemoglobin A1c of 6.25 May 2024 hypothyroidism, euthyroid as of recent TSH from 2 months ago oropharyngeal thrush ongoing tobacco abuse PCU CS, Doxycycline for atypical pneumonia, Cefepime for possible complicated UTI Stool C. difficile Flagyl 1 dose now for presumptive C. difficile given marked leukocytosis, oral vancomycin if stool C. difficile positive Monitor creatinine response to IV albumin given congestion on CXR, hold home diuretic until creatinine back to baseline Topical Rx for oropharyngeal thrush ISS BG goal 1 10-1 40, carb count coverage Nicotine patch as needed DVT prophylaxis. Heparin subcu Full code Text document was generated using [employer] voice recognition software. It may contain grammatical or spelling errors. Kindly contact undersigned for clarification of any documentation item in question. History of Present Illness Chief Complaint: Sore throat, cough, weakness, right back pain Primary Care Provider: Dr. Mckenzie History obtained from patient and records. Medical history is significant for chronic respiratory failure secondary to COPD on home O2 at night, chronic systolic/diastolic heart failure (EF of 55-60% TTE 2023), HTN, GERD, DM 2 on oral meds, CRI baseline creatinine 1.4, hypothyroidism, mood disorder, history of right tibial fracture, ongoing tobacco abuse. Last confinement May, for ambulatory dysfunction. Noted to be hypotensive during confinement. Atenolol and lisinopril discontinued on discharge. Patient discharged to [facility] where she stayed for a month before being discharged home last month. Patient not feeling well the last 4 days. Dry cough symptoms without unusual chest pain or SOB. Sore throat which feels like thrush as per patient. Body aches. Watery loose stools without abdominal pain. Achy right flank pain. No unusual RLE pain or swelling as per patient. Patient not sure about sick contacts. SBP 90s upon arrival at the ER. Zosyn administered at the ER. Medical Historyas above Surgical History : BTL, sinus surgery, nasal septum repair, wrist surgery cataract surgery Family History : Heart disease Personal/Social history : Half pack daily, no chronic EtOH intake, disabled Allergies Allergy/AdvReac Type Severity Reaction Status Date / Time adhesive Allergy Intermediate RASH Verified 07/24/24 20:45 Quinolones Allergy Intermediate LEVAQUIN Verified 07/24/24 20:45 codeine AdvReac Severe "BECAME Verified 07/24/24 20:45 ADDICTED TO MED" PREFERS NOT TO TAKE IF POSSIBLE. morphine AdvReac Severe ADDICTION-PREFERS Verified 07/24/24 20:45 NOT TO TAKE IF POSSIBLE. linagliptin AdvReac Mild hypoglycemi Verified 07/24/24 20:45 a Home Medications Medication Instructions Recorded Confirmed Type azelastine 137 mcg (0.1 %) nasal 2 spray intranasal BID 10/09/18 07/24/24 History spray calcium carbonate 500 mg PO 5XD PRN Gi Upset 10/09/18 07/24/24 History cholecalciferol (vitamin D3) 1,250 50,000 unit PO WK 10/09/18 07/24/24 History mcg (50,000 unit) tablet clotrimazole 10 mg tyrell 10 mg mucous membrane 5XD PRN 10/09/18 07/24/24 History THRUSH furosemide 20 mg tablet 20 mg PO DAILY 10/09/18 07/24/24 History gabapentin 300 mg capsule 300 mg PO USEASDIRECTD 10/09/18 07/24/24 History ipratropium bromide 0.02 % 2.5 ml continuous nebulization Q4H 10/09/18 07/24/24 History solution for inhalation PRN Shortness Of Breath Or Wheezing levalbuterol HCl 1.25 mg/3 mL 1.25 mg inhalation QID PRN 10/09/18 07/24/24 History solution for nebulization Shortness Of Breath Or Wheezing levocetirizine 5 mg tablet 5 mg PO PM 10/09/18 07/24/24 History levothyroxine 75 mcg tablet 75 mcg PO QAM 10/09/18 07/24/24 History montelukast 10 mg tablet 10 mg PO HS 10/09/18 07/24/24 History nitroglycerin 0.4 mg sublingual 0.4 mg sublingual UD PRN Chest Pain 10/09/18 07/24/24 History tablet (Nitrostat) pantoprazole 40 mg tablet,delayed 40 mg PO QAM 10/09/18 07/24/24 History release paroxetine HCl 40 mg tablet 40 mg PO QAM 10/09/18 07/24/24 History potassium chloride 10 mEq 10 meq PO DAILY 10/09/18 05/22/24 History tablet,extended release(part/cryst) ropinirole 0.25 mg tablet 0.25 mg PO HS 10/09/18 07/24/24 History aspirin 81 mg capsule 81 mg PO QAM 01/27/22 07/24/24 History guaifenesin 600 mg tablet, 600 mg PO BID PRN Cough 01/27/22 07/24/24 History extended release 12 hr (Mucinex) albuterol sulfate 90 mcg/actuation 2 puff inhalation QID PRN 05/16/24 07/24/24 History aerosol inhaler SOB/Wheezing alendronate 70 mg tablet 70 mg PO WK 05/16/24 07/24/24 History atorvastatin 40 mg tablet 40 mg PO HS 05/16/24 07/24/24 History fluticasone fur. 200 mcg-umeclid 1 inh inhalation DAILY 05/16/24 07/24/24 History 62.5 mcg-vilant 25 mcg inhalat.powder (Trelegy Ellipta) lidocaine 5 % topical patch 1 patch topical DAILY PRN Pain 05/16/24 07/24/24 History (Lidoderm) linagliptin 5 mg tablet (Tradjenta) 5 mg PO QAM 05/16/24 07/24/24 History nystatin 100,000 unit/gram topical 1 applic topical BID 05/22/24 07/24/24 History cream budesonide 0.5 mg/2 mL suspension 0.5 mg inhalation QID PRN 07/24/24 07/24/24 History for nebulization Shortness Of Breath Or Wheezing Past Med/Surg History Problem List (Updated 07/24/24 @ 21:25 by Background Daemon) Weakness (Acute) Acute right flank pain (Acute) Acute UTI (Acute) Hypotension MANDY (acute kidney injury) (Acute) Debilitated (Acute) Leukocytosis (Acute) Bilateral leg pain (Acute) Contusion of left foot Left ankle pain Hemarthrosis, right knee Right leg weakness (Acute) Acute pain of right knee (Acute) Fall (Acute) Sprain of left foot (Acute) Ambulatory dysfunction (Acute) Syncope and collapse COPD exacerbation Hypoxic (Acute) COPD (chronic obstructive pulmonary disease) (Acute) Dehydration Syncope (Acute) Acute hypotension (Acute) Laceration (Acute) Sepsis (Acute) COPD with acute exacerbation (Acute) Acute respiratory failure (Acute) COPD (chronic obstructive pulmonary disease) (Chronic) Migraine (Chronic) Anxiety (Chronic) Depression (Chronic) H/O tubal ligation (Chronic) Tracheostomy obstruction (Acute) Medical History (Updated 07/24/24 @ 21:25 by Germania Stuart) COPD (chronic obstructive pulmonary disease) Diabetes Social History Smoking Status: Current every day smoker Tobacco Type: Cigarettes Second Hand Exposure: Yes; Do You Dip or Chew Tobacco: No; Hx Alcohol Use: No Hx Substance Use: No Preferred Language: Ukrainian Communication Ability: Effective Press Department Manager Required: No Beliefs That Will Affect Care: None Current Living Situation: Alone Feels Safe at Home: Yes Assistive Devices: Cane, Oxygen - at Night and Walker Review of Systems Review of Systems: As per HPI, all other systems reviewed and negative Physical Exam Physical Exam: GENERAL: Slightly uncomfortable, dysphonic, no respiratory distress SKIN: Pallor, warm HEENT: Pale palpebral conjunctivae, no ptosis, dry buccal mucosa, pharyngeal congestion with scant white plaques NECK : Supple, no tenderness CHEST : Decreased breath sounds, occasional expiratory wheezes, no tenderness HEART : RRR, no obvious murmurs ABDOMEN: Some distention, nontender EXTREMITIES : RLE splint, no other conspicuous deformities noted NEUROLOGIC : Coherent, no facial asymmetry, slightly hard of hearing, no other gross focality Results & Data Results & Data Vital Signs (Past 12 Hours) Vital Signs Temp Pulse Pulse Resp BP BP Pulse Ox 07/24/24 18:30 67 16 95/53 L 98 07/24/24 17:09 91 H 16 91/52 L 96 07/24/24 16:59 71 07/24/24 16:31 37.1 C 68 16 93/54 L 95 07/24/24 16:31 37.1 C 68 16 93/54 L 96 O2 Del Method 07/24/24 18:30 Room Air 07/24/24 17:09 Room Air 07/24/24 16:59 07/24/24 16:31 Room Air 07/24/24 16:31 Room Air Laboratory Results Laboratory Results WBC 16.95 K/ul (4.8-10.8) H 07/24/24 16:35 RBC 3.80 M/uL (4.20-5.40) L 07/24/24 16:35 Hgb 11.7 g/dl (12.0-16.0) L 07/24/24 16:35 Hct 34.4 % (37.0-47.0) L 07/24/24 16:35 MCV 90.5 fL (80.0-100.0) 07/24/24 16:35 MCH 30.8 pg (25.0-34.0) 07/24/24 16:35 MCHC 34.0 g/dL (32.0-36.0) 07/24/24 16:35 RDW Std Deviation 45.1 fL (36.4-46.3) 07/24/24 16:35 RDW Coeff of Scar 13.4 % (11.5-14.5) 07/24/24 16:35 Plt Count 348 K/uL (130-400) 07/24/24 16:35 MPV 9.9 fL (9.4-12.4) 07/24/24 16:35 Immature Gran % (Auto) 1.2 % 07/24/24 16:35 Neut % (Auto) 74.8 % 07/24/24 16:35 Lymph % (Auto) 13.1 % 07/24/24 16:35 [place] % (Auto) 9.6 % 07/24/24 16:35 Eos % (Auto) 1.1 % 07/24/24 16:35 Baso % (Auto) 0.2 % 07/24/24 16:35 Neut # (Auto) 12.67 K/uL (1.40-6.50) H 07/24/24 16:35 Lymph # (Auto) 2.22 K/uL (1.20-3.40) 07/24/24 16:35 [place] # (Auto) 1.62 K/uL (0.11-0.59) H 07/24/24 16:35 Eos # (Auto) 0.19 K/uL (0.00-0.50) 07/24/24 16:35 Baso # (Auto) 0.04 K/uL (0.00-0.20) 07/24/24 16:35 Immature Gran # (Auto) 0.21 K/uL (0.01-0.20) H 07/24/24 16:35 Sodium 134 mmol/L (136-145) L 07/24/24 16:35 Potassium 3.2 mmol/L (3.5-5.1) L 07/24/24 16:35 Chloride 99 mmol/L (98-107) 07/24/24 16:35 Carbon Dioxide 25 mmol/L (21-32) 07/24/24 16:35 Anion Gap 10 (3-11) 07/24/24 16:35 BUN 26 mg/dl (6-23) H 07/24/24 16:35 Creatinine 1.81 mg/dl (0.6-1.2) H 07/24/24 16:35 Est Cr Clr Drug Dosing 28.4 ml/min 07/24/24 16:35 eGFR 29.19 07/24/24 16:35 BUN/Creatinine Ratio 14.4 (10-20) 07/24/24 16:35 Glucose 129 mg/dl (70-99(Fasting)) H 07/24/24 16:35 Lactate 1.3 mmol/L (0.4-2.0) 07/24/24 17:40 Calcium 8.8 mg/dl (8.6-10.3) 07/24/24 16:35 Magnesium 1.7 mg/dl (1.7-2.4) 07/24/24 16:35 Total Bilirubin 0.7 mg/dl (0.2-1.0) 07/24/24 16:35 AST 49 U/L (13-39) H 07/24/24 16:35 ALT 39 U/L (7-52) 07/24/24 16:35 Alkaline Phosphatase 126 U/L (34-104) H 07/24/24 16:35 Troponin I High Sens 49.7 pg/ml (0-14) H 07/24/24 16:35 Total Protein 6.9 gm/dl (6.0-8.3) 07/24/24 16:35 Albumin 3.2 gm/dl (3.4-5.0) L 07/24/24 16:35 Globulin 3.7 gm/dl (2.5-4.0) 07/24/24 16:35 Albumin/Globulin Ratio 0.9 (0.9-2) 07/24/24 16:35 Lipase 13 U/L (11-82) 07/24/24 16:35 Procalcitonin 25.30 ng/ml (0-0.5) H 07/24/24 16:35 Adenovirus (PCR) Not Detected (NotDetected) 07/24/24 17:40 B. pertussis DNA (PCR) Not Detected (NotDetected) 07/24/24 17:40 B.parapertussis DNA PCR Not Detected (NotDetected) 07/24/24 17:40 C. pneumoniae DNA (PCR) Not Detected (NotDetected) 07/24/24 17:40 Coronavirus OC43 (PCR) Not Detected (NotDetected) 07/24/24 17:40 Coronavirus HKU1 (PCR) Not Detected (NotDetected) 07/24/24 17:40 Coronavirus 229E (PCR) Not Detected (NotDetected) 07/24/24 17:40 SARS-CoV-2 (PCR) Not Detected (NotDetected) 07/24/24 17:40 Coronavirus NL63 (PCR) Not Detected (NotDetected) 07/24/24 17:40 Human Metapneumovir PCR Not Detected (NotDetected) 07/24/24 17:40 Influenza Type A (PCR) Not Detected (NotDetected) 07/24/24 17:40 Influenza Type B (PCR) Not Detected (NotDetected) 07/24/24 17:40 M. pneumoniae (PCR) Not Detected (NotDetected) 07/24/24 17:40 Parainfluenza 1 (PCR) Not Detected (NotDetected) 07/24/24 17:40 Parainfluenza 2 (PCR) Not Detected (NotDetected) 07/24/24 17:40 Parainfluenza 3 (PCR) Not Detected (NotDetected) 07/24/24 17:40 Parainfluenza 4 (PCR) Not Detected (NotDetected) 07/24/24 17:40 RSV (PCR) Not Detected (NotDetected) 07/24/24 17:40 Entero/Rhino (PCR) Not Detected (NotDetected) 07/24/24 17:40 Impressions Abdomen/Pelvis CT 07/24/24 17:34 INDICATION: Right-sided pain and chills. COMPARISON: No relevant priors available. TECHNIQUE: Axial CT images of the abdomen and pelvis were obtained without IV contrast administration. Coronal and sagittal reformations were reviewed. FINDINGS: Visualized lung bases appear unremarkable. Small hiatal hernia. Gallstones in the gallbladder. Mild hepatic steatosis. The spleen, pancreas and adrenal glands appear unremarkable. Nonspecific bilateral perinephric fat stranding. Nonobstructing 2 mm right renal calculus. Left renal arterial calcification noted. No hydronephrosis. Bilateral renal cysts measuring up to 2.5 cm. Negative for abdominal aortic aneurysm. Enlarged retroperitoneal lymph nodes measuring up to 1 cm. No evidence of bowel obstruction/colitis/appendicitis. No free air. No drainable fluid collection. The urinary bladder appears unremarkable. Phleboliths in the pelvis. Mild degenerative changes in the spine and hips. No acute osseous abnormality evident. IMPRESSION: 1. Nonobstructing 4 mm right renal calculus. No hydronephrosis. Bilateral renal cysts. 2. Enlarged retroperitoneal lymph nodes measuring up to 1 cm. Follow-up recommended. 3. Cholelithiasis. 4. Mild hepatic steatosis. Electronically signed by Toi Jara 07-24-2024 6:41 PM Chest X-Ray 07/24/24 17:34 INDICATION: Chest pain. TECHNIQUE: Frontal radiograph of the chest. COMPARISON: Radiograph from 05/22/2024. FINDINGS: Cardiomegaly. Mild pulmonary vascular congestion. Subsegmental atelectasis in the lung bases. No infiltrate, pleural effusion or pneumothorax. No acute osseous abnormality evident. IMPRESSION: Mild pulmonary vascular congestion. Electronically signed by Toi Jara 07-24-2024 6:27 PM Diagnostic Findings EKG as per my interpretation :Rate 70, NSR, normal axis, no ischemia
[2024-07-24] MEDS: PIPERACILLIN/TAZOBACTAM 4.5 GM/100 ML BAG IV ONE (20:24)
[2024-07-24] MEDS: POTASSIUM CHLORIDE CRTAB 20 MEQ TABCR PO STA (20:24)
[2024-07-24] MEDS ORDERED: ACETAMINOPHEN 325 MG TAB PO PRN (20:27)
[2024-07-24] MEDS: ALBUMIN 25% 25 GM/100 ML VIAL IV ONE (20:39)
[2024-07-24 20:52] LABS: Appearance Urine Clear (Clear); Bacteria Urine Automated 4+ (None Seen); Bilirubin Urine Negative (Negative); Blood Urine 2+ (Negative); Cast Urine Automated 0-2 /lpf (0-2); Color Urine Yellow; Epithelial Cell Urine Auto 0-2 /hpf (0-2); Glucose Urine UA Negative (Negative); Ketones Urine Negative (Negative); Leukocyte Esterase Urine 3+ (Negative); Nitrite Urine Positive (Negative); Protein Urine Trace (Negative); RBC Urine Automated 0-2 /hpf (0-2); Specific Gravity Urine 1.006 (1.000-1.030); Urobilinogen Urine Negative (Negative); WBC Urine Automated 21-50 /hpf (0-5)
[2024-07-24] MEDS ORDERED: GLUCAGON FOR INJ 1 MG VIAL SQ PRN (21:32)
[2024-07-24] MEDS ORDERED: DEXTROSE 50% 50 ML SYRINGE IV PRN (21:32)
[2024-07-24] MEDS ORDERED: GLUCOSE 10 TAB/TUBE PO PRN (21:32)
[2024-07-24] MEDS ORDERED: CARBOHYDRATES FOR HYPOGLYCEMIA PO PRN (21:32)
[2024-07-24] MEDS ORDERED: GLUCOSE 40% GEL 15 GM TUBE PO PRN (21:32)
[2024-07-24] MEDS ORDERED: LEVALBUTEROL 1.25 MG/3 ML NEB INH PRN (21:46)
[2024-07-24] MEDS: INSULIN ASPART PER UNIT CHARGE SC SCH (21:46)
[2024-07-24] MEDS ORDERED: CALCIUM CARBONATE 500 MG CHEWABLE TAB PO PRN (21:58)
[2024-07-24 22:13] LABS: Troponin I High Sensitivity 33.6 pg/ml (0-14)
[2024-07-24] MEDS: HEPARIN SOD 5,000 UNIT/0.5 ML VIAL SQ SCH (22:35)
[2024-07-24] MEDS: DOXYCYCLINE HYCLATE 100 MG in DEXTROSE 5% MINI-B 100 ML IV STA (22:39)
[2024-07-24] MEDS: metroNIDAZOLE 500 MG/100 ML BAG IV STA (22:40)
[2024-07-24] MEDS: CLOTRIMAZOLE 10 MG TROCHE BUCCAL SCH (22:41)
[2024-07-24] MEDS: rOPINIRole HCL 0.25 MG TABLET PO SCH (22:42)
[2024-07-25] MEDS: NYSTATIN POWDER 15GM BTL EXT SCH (00:44)
[2024-07-25] MEDS: NYSTATIN SUSP 500,000 U/5 ML UDC PO SCH (00:51)
[2024-07-25] MEDS: oxyCODONE HCL IR 5 MG TAB (IMMEDIATE RELEASE) PO PRN (02:44)
[2024-07-25] MEDS ORDERED: ALBUT/IPRATROP 3MG/0.5MG NEB 3 ML VIAL NEB PRN (03:41)
[2024-07-25] MEDS: ALBUMIN 25% 25 GM/100 ML VIAL IV SCH (04:04)
[2024-07-25] MEDS: CEFEPIME 2000MG 2,000 MG/20 ML SYR IV ONE (04:04)
[2024-07-25] MEDS: BENZONATATE 100 MG CAPSULE PO PRN (04:04)
[2024-07-25] MEDS: GABAPENTIN 100 MG CAP PO SCH (04:23)
[2024-07-25] MEDS: LEVOTHYROXINE SODIUM 75 MCG TABLET PO SCH (06:14)
[2024-07-25 06:19] LABS: Basophils # (auto) 0.04 K/uL (0.00-0.20); Basophils % (auto) 0.3 %; Eosinophils # (auto) 0.17 K/uL (0.00-0.50); Eosinophils % (auto) 1.4 %; Hematocrit (blood only) 30.4 % (37.0-47.0); Hemoglobin 9.8 g/dl (12.0-16.0); Immature Granulocytes % (auto) 0.8 %; Lymphocytes # (auto) 1.66 K/uL (1.20-3.40); Lymphocytes % (auto) 13.4 %; Mean Corpuscular Hemoglobin 29.8 pg (25.0-34.0); Mean Corpuscular Hgb Conc 32.2 g/dL (32.0-36.0); Mean Corpuscular Volume 92.4 fL (80.0-100.0); Mean Platelet Volume 9.5 fL (9.4-12.4); Monocytes # (auto) 1.14 K/uL (0.11-0.59); Monocytes % (auto) 9.2 %; Neutrophils # (auto) 9.24 K/uL (1.40-6.50); Neutrophils % (auto) 74.9 %; Platelet Count 313 K/uL (130-400); RDW Coefficient of Variation 13.7 % (11.5-14.5); Red Blood Count 3.29 M/uL (4.20-5.40); White Blood Count 12.35 K/ul (4.8-10.8)
[2024-07-25 06:34] LABS: Calcium 8.6 mg/dl (8.6-10.3); Creatinine Clr Calc Pharmacy 31.8 ml/min; Potassium 3.8 mmol/L (3.5-5.1)
[2024-07-25] MEDS: ALENDRONATE SODIUM 70 MG TAB PO SCH (07:30)
[2024-07-25] MEDS: ASPIRIN 81 MG ECTAB PO SCH (08:38)
[2024-07-25] MEDS: DOXYCYCLINE HYCLATE 100 MG CAP PO SCH (08:38)
[2024-07-25] MEDS: PANTOprazole 40 MG TAB PO SCH (08:38)
[2024-07-25] MEDS: PARoxetine HCL 20 MG TAB PO SCH (08:38)
[2024-07-25] MEDS: AZELASTINE HCL 0.1% NASAL 200 SPRAYS/27,400 MCG BTL SCH (08:39)
[2024-07-25] MEDS: FLUTICASONE FUROATE 200MCG 14 PUFFS/INHALER INH SCH (08:39)
[2024-07-25] MEDS: UMECLIDINIUM/VILANTEROL 62.5/25MCG 7 PUFFS/INHALER INH SCH (08:40)
[2024-07-25] MEDS ORDERED: NON-FORMULARY MEDICATION (Fluticasone-Umeclidin-Vilanter [Trelegy Ellipta] 200-62.5-25 mcg INH SCH (09:00)
[2024-07-25] MEDS: ADVANCED PROBIOTIC 625 MG CAPSULE PO SCH (09:47)
--- NOTE | 2024-07-25 11:27 | Hospitalist Progress Note ---
Date of Service July 25, 2024 Assessment & Plan (1) Hypotension: Plan: 74-year-old lady with PMH of chronic respiratory failure 2/2 COPD on home O2 at night (2 L), chronic systolic/diastolic HF [EF of 55 to 60% TTE 2023], HTN, GERD, T2DM on oral meds, CKD [baseline creatinine of 1.4], hypothyroidism, mood disorder, right tibial fracture, ongoing tobacco abuse, recent discontinuation of atenolol and lisinopril due to hypotension issues presented with complaint of not feeling well since last 4 days ago [employer], reports occasional cough with yellow sputum, sore throat. She is being managed for the following: Possible atypical pneumonia Did not meet SIRS criteria at presentation, no sepsis POA, admitting WBC and procalcitonin elevated. Follow admitting blood culture, send sputum culture. Continue cefepime 07/25 and doxycycline 07/25. Add lactobacillus. Follow clinically. Oropharyngeal thrush: Topical Rx for oropharyngeal thrush, monitor. Complicated UTI: Admitting UA suggestive of UTI, admitting urine culture positive for E. coli. Antibiotic as above. Recent diarrhea: Patient reports last diarrhea 2 days ago [employer], if with further diarrhea send stool PCR and C. difficile. Continue to monitor. Acute kidney injury over CKD stage III: Admitting creatinine of 1.81, baseline creatinine around 1.5. Admitting CTAP reviewed, no obstruction (non obstructive rt renal stone 4mm). Status post IV albumin, creatinine improving. Monitor creatinine response to IV albumin given congestion on CXR, hold home diuretic until creatinine back to baseline, encourage p.o. intake. Avoid nephrotoxic's, labs in AM. If rt flank pain f/u w/ uro. Abnormal CTAP: enlarged retroperitoneal LN approx 1 cm. F/u imaging as OP. Other chronic medical conditions: Continue with/resume home meds as and when able. Chronic respiratory failure secondary to COPD on home O2 at night Chronic systolic/diastolic heart failure, mild congestion on admitting x-ray, patient intravascularly dry, c/t monitor volume status. DM 2 on oral meds, well-controlled as of recent hemoglobin A1c of 6.25 May 2024. SSI while in hospital. hypothyroidism, euthyroid as of recent TSH from 2 months ago ongoing tobacco abuse: Nicotine patch as needed DVT prophylaxis. Heparin subcu Full code Patient's son Dino was given a phone call and updated regarding right renal stone and retroperitoneal lymph nodes and given general updates on the patient care and discussed plan of care. He voiced understanding. Text document was generated using [email or web address] voice recognition software. It may contain grammatical or spelling errors. Kindly contact undersigned for clarification of any documentation item in question. Admission and Anticipated Discharge Date Admission Date: July 24, 2024 Subjective Patient was seen and examined at bedside. Patient was lying in bed, on 1 L oxygen via nasal cannula, NAD, resting comfortably. Patient ate some, denies diarrhea since last 2 days, reports cough with yellow sputum, appears tired but is oriented. Patient denies chest pain or abdominal pain. Physical Exam Physical Exam: GENERAL: Slightly uncomfortable, no respiratory distress SKIN: Pallor, warm HEENT: Pale palpebral conjunctivae, no ptosis, moist buccal mucosa, pharyngeal congestion noted NECK : Supple, no tenderness CHEST : Decreased breath sounds likely 2/2 poor effort, bb crackles, no tenderness HEART : RRR, no obvious murmurs ABDOMEN: Some distention, nontender EXTREMITIES : RLE splint, no other conspicuous deformities noted NEUROLOGIC : Coherent, no facial asymmetry, slightly hard of hearing, no other gross focality Results & Data Results & Data Vital Signs (Past 12 Hours) Vital Signs Temp Pulse Pulse Resp BP BP Pulse Ox 07/25/24 10:54 36.7 C 69 18 98/61 L 91 07/25/24 08:00 66 07/25/24 08:00 07/25/24 07:09 36.7 C 68 19 98/61 L 91 07/25/24 03:28 36.7 C 71 22 102/65 90 07/25/24 01:51 07/25/24 00:50 76 96/58 L O2 Del Method O2 Flow Rate 07/25/24 10:54 Nasal Cannula 1 07/25/24 08:00 07/25/24 08:00 Nasal Cannula 2 07/25/24 07:09 Nasal Cannula 2 07/25/24 03:28 Room Air 07/25/24 01:51 Room Air 07/25/24 00:50
--- NOTE | 2024-07-25 13:50 | Electrocardiogram Report ---
Test Reason : Blood Pressure : */* mmHG Vent. Rate : 68 BPM Atrial Rate : 68 BPM P-R Int : 132 ms QRS Dur : 86 ms QT Int : 434 ms P-R-T Axes : 84 13 52 degrees QTcB Int : 461 ms Normal sinus rhythm Low voltage QRS Borderline ECG When compared with ECG of 22-May-2024 19:46, No significant change was found Confirmed by Drew Riggs ([id number]) on 07/25/2024 1:50:11 PM Referred By: REFERRED SELF Confirmed By: Drew Riggs
[2024-07-25] MEDS: CEFEPIME 1000MG 1,000 MG/10 ML SYR IV SCH (15:57)
[2024-07-25] MEDS: CETIRIZINE HCL 10 MG TABLET PO SCH (20:40)
[2024-07-25] MEDS: MONTELUKAST SODIUM 10 MG TABLET PO SCH (20:41)
[2024-07-25] MEDS: ATORVASTATIN 40 MG TAB PO SCH (20:41)
--- OUTSIDE RECORDS SUMMARY | 2024-07-25 23:50 | External Medical Summary | Summary of Care ---
Author Name Unknown Organization [facility] Address [address] [place] [address] Phone [phone] Care Team Providers Care Assurance Auditor Name Role Phone Jose Mckenzie Rustam Primary Care Provid er Encounter Details Date Type Department Care Team (Late st Contact Info) Description 07/12/2024 1:15 PM EST Scheduled Telephone Care Coordination and Integration [address], [place] [phone] [facility] Health Director Corporate Sales [address], [place] [phone] Allergies Active Allergy Reactions Criticality Noted Date Comments 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 Quinolones Other (Please comment) 02/19/2003 Hives Moods- becomes nasty Adhesive Tape Rash 01/29/2014 documented as of this encounter (statuses as of 07/12/2024) Medications NEBULIZERS MISCIndications:CO PD, 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) portable nebulizer 1 Each 5 01/25/20 14 Active Spacer/Aero-Holdin g Chambers DEVIIndications:CO PD, severe (HCC) Use with QVar inhaler 1 Device 3 10/02/19 17 Active Blood Pressure Monitoring (BD ASSURE BPM/AUTO ARM CUFF) MISC Check BP daily as needed 1 Each 12/07/19 19 Active ONETOUCH DELICA LANCETS 33G MISC USE DIRECTED 4 TIMES A DAY 100 Each 5 07/24/20 19 Active Glucose Blood (ONETOUCH VERIO) STRPIndications:DM type 2, goal: symptom mgmt (HCC) USE DIRECTED 2 TIMES A DAY DX:E11.9 200 Strip 3 01/12/20 20 Active Calcium Carbonate Antacid 500 MG Oral Tablet Chewable Take 1 Tablet by mouth in the morning and 1 Tablet at noon and 1 Tablet in the evening. Take with meals. Active guaiFENesin ER 600 MG Oral Tablet Extended Release 12 Hour Take 1 Tablet by mouth in the morning and 1 Tablet before bedtime. Active Dextromethorphan-g uaiFENesin 10-100 MG/5ML Oral Syrup Take 10 mL by mouth every 6 hours as needed for Cough. Active Azelastine HCl 137 MCG/SPRAY Nasal SolutionIndication s:Rhinitis, nonallergic ADMINISTER 2 SPRAYS INTO EACH NOSTRIL 2 TIMES A DAY. 90 mL 1 11/03/19 23 Active Vitamin D (Ergocalciferol) 1.25 MG (15270 UT) Oral Capsule (Drisdol) TAKE 1 CAPSULE BY MOUTH ONE TIME PER WEEK Strength: 1.25 MG (96265 UT) 12 Capsule 1 03/19/2023 4:12 PM EDT 02/20/20 23 Active Additional Information Patient not taking.Reported on 09/23/2023 linaGLIPtin 5 MG Oral Tablet (Tradjenta) TAKE ONE TABLET BY MOUTH EVERY DAY.TO REPLACE JANUVIA 90 Tablet 04/29/20 22 Active Nitroglycerin 0.4 MG Sublingual Tablet Sublingual (Nitrostat)Indicat ions:Heart failure, systolic, due to idiopathic cardiomyopathy (HCC) Place 1 Tablet under the tongue every 5 minutes as needed for chest pain. 25 Tablet 5 05/26/2023 5:34 PM EDT 05/24/20 23 Active Potassium Chloride Tegan ER 10 MEQ Oral Tablet Extended ReleaseIndications :COPD, severe (HCC),Hypothyroidi sm, unspecified type,Vitamin D deficiency Take 1 Tablet by mouth in the morning. 180 Tablet 1 03/28/2024 12:43 PM EDT 08/26/19 24 Active oxygen IN GASIndications:STOCK TRADER D, severe (HCC),Heart failure, systolic, due to idiopathic cardiomyopathy (HCC),Nocturnal hypoxemia,Dependen ce on supplemental oxygen Use 2 L/min(Oxygen) as directed daily. By NC. With any activity, should keep 2L oxygen for hypoxia 1 Each 08/26/19 24 Active PARoxetine HCl 40 MG Oral Tablet (pAXil) TAKE ONE TABLET BY MOUTH EVERY MORNING 90 Tablet 3 05/29/2024 2:02 PM EDT 09/06/19 24 025 Active Atorvastatin Calcium 40 MG Oral Tablet (Lipitor)Indicatio ns:Dyslipidemia, goal LDL below 70 TAKE ONE TABLET BY MOUTH AT BEDTIME 90 Tablet 3 05/29/2024 2:02 PM EDT 09/06/19 24 Active Furosemide 20 MG Oral Tablet (Lasix)Indications :Heart failure, systolic, due to idiopathic cardiomyopathy (HCC) TAKE ONE TABLET BY MOUTH EVERY MORNING 90 Tablet 3 05/31/2024 3:12 PM EDT 09/08/19 24 025 Active Lisinopril 10 MG Oral Tablet (Prinivil)Indicati ons:HTN, goal below 140/90 TAKE ONE TABLET BY MOUTH EVERY DAY 90 Tablet 3 05/31/2024 3:12 PM EDT 09/08/19 24 025 Active Montelukast Sodium 10 MG Oral Tablet (Singulair)Indicat ions:COPD, severe (HCC) TAKE ONE TABLET BY MOUTH EVERY MORNING 90 Tablet 3 06/12/2024 3:43 PM EDT 09/16/19 24 025 Active Benzonatate 100 MG Oral Capsule (Tessalon Perlyvan) Take 1 Capsule by mouth 3 times a day as needed for Cough. Active Vitamin D3 125 MCG (5000 UT) Oral Capsule Take one capsule by mouth every other day Active Pantoprazole Sodium 40 MG Oral Tablet Delayed Release (Protonix) TAKE ONE TABLET BY MOUTH EVERY MORNING 90 Tablet 3 06/27/2024 7:48 AM EST 10/04/19 24 Active Aspirin 81 MG Oral Tablet Delayed Release (Aspirin Low Dose)Indications:H TN, goal below 140/90 TAKE ONE TABLET BY MOUTH EVERY MORNING 90 Tablet 3 04/05/2024 4:37 PM EDT 10/11/19 24 025 Active linaGLIPtin 5 MG Oral Tablet (Tradjenta) Take 1 Tablet by mouth in the morning. 90 Tablet 3 06/06/2024 12:38 PM EDT 12/14/19 24 Active Clotrimazole 10 MG Mouth/Throat Krunal (Mycelex Krunal)Indications :Thrush DISSOLVE 1 KRUNAL IN MOUTH 5 TIMES A DAY NEEDED FOR THRUSH 60 Krunal 1 12/16/2023 12:36 PM EDT 12/16/19 24 Active methylPREDNISolone 4 MG Oral Tablet Therapy Pack (Medrol Dosepack) follow package directions 21 Tablet 01/04/20 24 Active Loratadine 10 MG Oral Tablet (Claritin)Indicati ons:Chronic rhinitis TAKE ONE TABLET BY MOUTH EVERY MORNING 100 Tablet 3 04/15/2024 8:46 AM EDT 01/10/20 24 025 Active Albuterol Sulfate HFA 108 (90 Base) MCG/ACT Inhalation Aerosol SolutionIndication s:COPD exacerbation (HCC) INHALE TWO PUFFS BY MOUTH FOUR TIMES A DAY 54 g 3 04/05/2024 4:37 PM EDT 01/10/20 24 025 Active Nystatin 035754 UNIT/GM External CreamIndications:C andidal skin infection APPLY TO AFFECTED AREA(S) TWICE A DAY FOR 2 WEEKS 60 g 5 05/20/2024 8:34 AM EDT 01/21/20 24 Active Atenolol 25 MG Oral Tablet (Tenormin)Indicati ons:HTN, goal below 140/90,Heart failure, systolic, due to idiopathic cardiomyopathy (HCC) TAKE ONE TABLET BY MOUTH EVERY MORNING 90 Tablet 1 05/29/2024 2:02 PM EDT 02/28/20 24 025 Active Gabapentin 300 MG Oral Capsule (Neurontin)Indicat ions:Pain of left thigh TAKE 1 CAPSULE BY MOUTH EVERY MORNING AND AT NOON AND TAKE 2 CAPSULES AT BEDTIME 360 Capsule 1 05/31/2024 3:12 PM EDT 02/29/20 24 025 Active Trelegy Ellipta 200-62.5-25 MCG/ACT Aerosol Powder Breath Activated (Fluticasone-Umecl idinium-Vilanterol ) Inhale 1 Puff by mouth in the morning. 180 Each 1 05/10/2024 6:55 AM EDT 05/08/20 24 Active rOPINIRole HCl 0.25 MG Oral Tablet (Requip)Indication s:RLS (restless legs syndrome),Persiste nt insomnia TAKE ONE TABLET BY MOUTH EVERY DAY AT BEDTIME 30 Tablet 5 05/16/2024 5:50 PM EDT 05/15/20 24 025 Active Alendronate Sodium 70 MG Oral Tablet (Fosamax)Indicatio ns:High risk for fracture due to osteoporosis by DEXA scan TAKE 1 TABLET BY MOUTH ONCE A WEEK WITH 8 OZ WATER 30 MIN BEFORE 1ST MEAL OF THE DAY, REMAIN UPRIGHT FOR 30 MIN AFTER 12 Tablet 1 05/27/2024 3:26 PM EDT 05/26/20 24 Active Budesonide 0.5 MG/2ML Inhalation Suspension (Pulmicort) PLACE ONE RESPULE INTO 240 ML OF SALINE IN URIAH MED BOTTLE AND IRRIGATE NOSE TWICE DAILY 360 mL 1 06/02/2024 11:35 AM EDT 05/31/20 24 025 Active Levothyroxine Sodium 75 MCG Oral Tablet (Levoxyl)Indicatio ns:Hypothyroidism, unspecified type TAKE 1 TABLET BY MOUTH DAILY AT LEAST 30 MINUTES PRIOR TO FIRST MEAL OF THE DAY OR OTHER MEDICATIONS 90 Tablet 1 06/12/2024 3:43 PM EDT 06/12/20 24 025 Active tiZANidine HCl 4 MG Oral Tablet (Zanaflex) Take 0.5 Tablets by mouth every 8 hours as needed for Muscle spasms. Active Hospital, Clinic, or Other Facility Administered [...] as of this encounter (statuses as of 07/12/2024) Active Problems Problem Noted Date Diagnosed Date Nocturnal hypoxemia 06/09/2024 Closed fracture of right tibial plateau 05/29/20 Hemarthrosis involving knee joint, right 024 MANDY (acute kidney injury) 05/29/2024 Impaired mobility and ADLs 05/29/2024 Hypertensive heart disease w ith systolic heart failure and stage 3 chronic kidney disease 08/26/2023 Current mild episode of christina r depressive disorder without prior episode 12/13/2020 Chronic respiratory failure with hypoxia 021 High risk for fracture due to osteoporosis by DE XA scan 09/14/2019 Gastroesophageal reflux disease without esophagi tis 09/14/2019 COPD, group D, by GOLD 2017 classification 09/04 Overview (10/25/2019): Per COPD GOLD Classification In Check dial performed to assess inhaler technique: 10/25/19 Name of inhalers Albuterol and Flovent Pass: Yes at 60L/min and Trelegy Ellipta Pass: Yes at 40L/min. Encouraged to take deep breaths, use aero chamber and rinse after steroid. Test performed by [facility] DELIVERY TECHNICIAN CPFT Hypertensive kidney disease, stage III 9 Diabetes mellitus with stage 3 chronic kidney di sease 10/17/2018 Dyslipidemia, goal LDL below 70 01/05/2018 Type 2 diabetes mellitus wit h hemoglobin A1c goal of less than 8.0% 01/04/2018 Osteoarthritis of cervical spine 08/19/2017 Macular degeneration 12/24/2016 Hypothyroidism 06/17/2016 Overview (12/09/2016): ICD-10 Update of inactive term Current smoker 04/07/2016 Primary osteoarthritis involving multiple joints 12/10/2015 HTN, goal below 140/90 11/08/2014 Heart failure, systolic, due to idiopathic cardi omyopathy 01/18/2014 Vitamin D deficiency 06/02/2012 Anxiety state 09/23/2011 documented as of this encounter (statuses as of 07/12/2024) Resolved Problems Problem Noted Date Diagnosed Date Resolved Date Moderate persistent asthma w ith acute exacerbation 08/29/2021 12/10/2021 Major depressive disorder, s shanti episode, unspecified 09/14/2019 06/04/2022 Overview (06/04/2022): More specified/recent Dx listed on PL Chronic [...] 10/26/2013 12/24/2016 History of tobacco use 10/26/201306/04 Overview (10/26/2013): quit 09/08/13 Irritable bowel syndrome 01/30/2013 Trigeminal neuralgia 07/04/2012 012 Chronic pain 07/04/2012 12/24/2016 Trigeminal neuralgia 07/04/2012 015 Overweight (BMI 25.0-29.9) 06/02/2012 0 12/24/2016 Overview (06/02/2012): bmi= 28.65 06/02/12 Respiratory failure 06/02/2012 12/12/19 15 COPD exacerbation 06/02/2012 12/24/2016 Tobacco use disorder 06/02/2012 014 Kidney disease, chronic, sta ge III (GFR 30-59 ml/min) 06/02/2012 11/08/2014 DJD (degenerative joint disease) 06/02/2012 06/05/2015 Major depression, single episode 06/02/2012 12/24/2016 HTN, goal below 140/80 06/02/201211/08 Dermatitis 06/02/2012 12/24/2016 Kidney disease, chronic, sta ge III (GFR 30-59 ml/min) 01/11/2012 06/02/2012 Overview (01/14/2012): Per CKD protocol #1 Hypothyroidism 10/02/2011 06/17/2016 Overweight (BMI 25.0-29.9) 09/23/2011 0 12/24/2016 Overview (09/23/2011): bmi= 26.54 09/23/11 COPD, severe 09/23/2011 09/23/2011 Generalized osteoarthritis 09/23/2011 0 12/10/2015 Generalized osteoarthritis 09/23/2011 0 09/23/2011 IBS (irritable bowel syndrome) 09/23/2011 02/16/2017 COPD, moderate 07/02/2011 01/29/2014 Hypoxemia 09/10/2010 07/07/2017 Overview (09/24/2011): 09/10/10 -- Oxygen at 2 L at rest, 4 L with exertion, 3.5 L during sleep [facility] Oxygen Hypercalcemia 06/09/2010 12/11/2014 Dyslipidemia, goal LDL below 100 06/06/2010 01/05/2018 Special screening for malign ant neoplasms, colon 06/06/2010 12/11/2014 COPD exacerbation 07/16/2009 12/11/2014 Vitamin D deficiency 05/21/2009 015 Chest pain 05/20/2009 12/11/2014 Acute URI 05/20/2009 08/13/2009 Overview (08/13/2009): Modified by Acute Dx Protocol #3. Anxiety [...] for malignant neoplasm of breast 05/22/2003 10/31/2008 Overview (10/31/2008): Resolved per Screening Diagnosis Protocol #6 POST-HERPETIC NEURALGIA 02/24/200206/23 COPD exacerbation 01/24/2002 06/02/2012 Herpes zoster 01/24/2002 11/14/2007 Abnormal weight gain 12/14/2001 008 Organic sleep disorder 12/14/200112/11 COPD, severity to be determined 10/11/2001 09/23/2011 Overview (06/26/2010): PFT 06/06/10 - FEV1 62%, FVC 76%, moderate COPD, severely reduced MVV, hyperinflation, improved with albuterol PFT 07/2003 - FEV1 57%, FVC 57%, no hyperinflation Tobacco use disorder 10/11/2001 012 Chronic rhinitis 09/23/2001 12/11/2014 Esophageal reflux 06/10/2001 09/11/2019 Overview (09/11/2019): cuplicate GENERAL OSTEOARTHROSIS 06/10/200109/23 Menopause 06/10/2001 12/11/2014 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, SO STATED 06/10/2001 12/11/2014 Constipation 12/26/1999 11/14/2007 Overview (11/14/2015): ICD-10 update of inactive term Heartburn 12/26/1999 12/11/2014 Panic disorder 12/26/1999 12/11/2014 Major depressive disorder Overview (06/15/2017): ICD-10 update of inactive term CLASSICAL MIGRAINE WITHOU ME NTION OF INTRACTABLE MIGRAINE 12/11/2014 COPD, very severe 09/23/2011 documented as of this encounter (statuses as of 07/12/2024) Immunizations Name Administration Dates Next Due COVID-19 mRNA, LNP-s, No Pre serve, 2-Dose Series (Pfizer) 05/27/2021,11/21/2020,10/31/2020 Pneumococcal Conjugate Vacc, 13 Valent (Prevnar) 12/02/2015 Pneumococcal Polysaccharide PPV23 (Pneumovax) 07/07/2017,08/04/2006 Season Influenza, Quad, PF, Adjuvanted, 65+ Yrs, IM (FLUAD) 08/08/2021 Seasonal Influenza Vac., MDV , IM, 0.5 mL (Fluzone) 06/04/2014,05/25/2013,05/27/2012,06/06,05/27/2009,07/02/2008,07/08/2007 ,06/02/2006 Seasonal Influenza, High Dos e, Trivalent, PF, IM (Fluzone HD) 05/22/2019 Seasonal Influenza, PF, 6 M & above, IM , (FluLaval or Fluzone) 05/27/2020,05/09/2018 Seasonal Influenza, Quadriva lent Hd (Fluzone Hd) 05/24/2023,06/11/2022 Seasonal Influenza, Quadriva lent, No Preserve, IM 05/23/2019,05/23/2017,05/06/2016,06/05 TD, Preservative Free 08/03/2018 TDAP (age 10 [...] pur e alcohol) PHQ-2 Answer Date Recorded PHQ Adult Total Score 0 06/28/2024 Hunger Vital Sign Answer Date Recorded Within the past 12 months, y ou worried that your food would run out before you got the money to buy more. Never true 06/28/20 24 Within the past 12 months, t he food you bought just didn't last and you didn't have money to get more. Never true 06/28/2024 Childcare Answer Date Recorded Do you feel overwhelmed with taking care of a child, family member or friend? No 06/28/2024 Does your family need help f inding childcare? (Household - for ages 0-17 years) Not on file 06/28/2024 Clothing Answer Date Recorded Have you been unable to get clothing when it was really needed? No 06/28/2024 Is your family able to get c lothes or diapers when needed? (Household - for ages 0-17 years) Not on file 06/28/2024 Personal Safety Answer Date Recorded Do you feel unsafe or have concerns for your saf ety? No 06/28/2024 Do you have concerns for you r family's safety? (Household - for ages 0-17 years) Not on file 06/28/2024 Utilities Answer Date Recorded Do you have trouble paying y our heating, water, or electric bill? No 06/28/2024 Is your family able to pay t he heat, water, or electric bill? (Household - for ages 0-17 years) Not on file 06/28/2024 Does your family have access to good internet? (Household - for ages 0-17 years) Not on file 06/28/2024 Employment Status Answer Date Recorded Are you unemployed or without regular income? No 06/28/2024 Does the household have a re gular source of income? (Household - for ages 0-17 years) Not on file 06/28/2024 Social Connections Answer Date Recorded How often do you feel lonely or isolated from th ose around you? Never 06/28/2024 Financial Resource Strain Answer Date R ecorded Do you have any trouble payi ng for your medications, or do you think you might in the future? No 06/28/2024 Does your family have troubl e paying for medicine? (Household - for ages 0-17 years) Not on file 06/28/2024 Transportation Needs Answer Date Record ed Do you have trouble getting a ride to medical visits or work? (Adult - for ages 18 years and over) Not on file 06/28/2024 Does your family have a hard time getting a ride to doctors visits? (Household - for ages 0-17 years) Not on file 06/28/2024 Has lack of transportation k ept you from medical appointments, meetings, work, or from getting things needed for daily living? Check all that apply. No 06/28/2024 Do you (or your family) have trouble finding or paying for a ride (transportation)? (Household - for ages 0-17 years) Not on file 06/28/2024 Housing Stability Answer Date Recorded Do you currently live in a s helter or have no steady place to sleep at night? No 06/28/2024 Do you think you are at risk of becoming homeless? (Adult - for ages 18 years and over) Not on file 06/28/2024 Does your family worry about paying for your home or becoming homeless? (Household - for ages 0-17 years) Not on file 1 08/28/2023 Are you homeless or worried that you might be in the future? No 06/28/2024 Are you (or your family) saw eless or worried that you might be in the future? (Household - for ages 0-17 years) Not on file Food Insecurity Answer Date Recorded Do you need food for this week? No 06/28/2024 Are you able to get enough f ood for your family? (Household - for ages 0-17 years) Not on file 06/28/2024 Does your family need food t his week? (Household - for ages 0-17 years) Not on file 06/28/2024 Do you always have enough fo od for your family? (Household - for ages 0-17 years) Not on file 06/28/2024 Comments No Sex and Gender Information Value Date Recorded Sex Assigned at Not on file Legal Sex Female 5:10 AM EST Gender Identity Not on file Sexual Orientation Not on file documented as of this encounter Progress Notes * Wm Barr Community Health Director Corporate Sales - 07/12/2024 2:31 PM EST Telemedicine visit: No Community Health Director Corporate Sales (ROSS) documentation: CHW follow up phone call for RNCM. Patient reports that her symptoms from last week are about the same. She explained that her cough is better today than it was yesterday. She said she basically has to take it 1 day at a time, becausethe symptoms fluctuate. She said she uses her nebulizer when she needs it. CHW asked how often she finds herself using it. She said 4-6 times daily, then there are days where she doesn't need it. Patient denies any SOB. Patient denies any swelling in ankles/feet. Patient denies any falls and continues to use her walker to ambulate. Patient reports that her weight yesterday was 184.1. Her blood sugar was either 112 or 115 yesterday and she forgot to write down her BP< but reports that it was in her normal range. Patient denies any other concerns at this time. She is agreeable to follow up phone call in 1 week. Caleb Barr Community Health Worker Lead [facility] [place] [phone] Electronically signed by [facility] Health Director Corporate Sales at 07/12/2024 2:36 PM EST documented in this encounter Plan of Treatment [...] 03/07/2019 01/10/2019, 02/21 CKD PHOS USE SMARTSET 06411 12/10/202211/22, 12/13/2020, 12/11/2014, Additional history exists Albumin/Creatinine Ratio 06/11/2023 022, 07/07/2017, 12/11/2014, Additional history exists Mammogram 09/09/2023 09/09/2022, 08/23, 12/06/2018, Additional history exists COVID-19 Vaccine ( season) 2024 05/27/2021, 11/21/2020, 10/31/2020 Influenza Vaccine (FLU shot) (#1) 2024 05/24/2023, 06/11/2022, 08/08/2021, Additional history exists Diabetic Foot Exam 05/24/2024 05/24/2023, 0 12/10/2021, 09/14/2019, Additional history exists TSH 05/24/2024 05/24/2023, 05/24, 12/10/2021, Additional history exists Diabetic Eye Exam 08/26/2024 08/26/2023, , 11/25/2017 O2 ASSESSMENT COMPLETED IN PAST YEAR FOR COPD 08/26/2024 08/26/2023 GFR 11/29/2024 05/31/2024, 01/0 11/2023, 05/24/2023, Additional history exists HbA1c 11/29/2024 05/31/2024, 100 09/2022, 06/11/2022, Additional history exists CKD HGB USE SMARTSET 71660 05/31/202505/31, 08/26/2023, 08/26/2023, Additional history exists Depression Monitoring 06/28/2025 06/28/2024 DXA Scan 12/13/2025 12/14/2023, 11/22, 12/07/2018, Additional history exists DTap/Tdap Vaccines (4 - Td or Tdap) 08/03/2028 08/03/2018, 08/03/2018, 05/16/2008 Lipid Panel 05/31/2029 05/31/2024, 11/22, 12/13/2020, Additional history exists Pneumococcal Vaccine: 65+ Years Completed 07/07/2017, 12/02/2015, 08/04/2006, Additional history exists Lung Cancer Screening Completed 04/15/2020 , 05/11/2006, 05/03/2003 VITAMIN D LEVEL ONCE IN A LIFETIME-USE SMARTSET# [id number] Completed 05/31/2024, 12/10/2021, 03/01/2019, Additional history exists HPV (Gardasil) Vaccine Aged [...] Documents on File Type Date Recorded Patient U.[place]. 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
--- OUTSIDE RECORDS SUMMARY | 2024-07-25 23:50 | External Medical Summary | Summary of Care ---
Author Name Unknown Organization [facility] Address [address] [place] [address] Phone [phone] Care Team Providers Care Geothermal Installer Name Role Phone Kirbymarlene Jose Easton Primary Care Provid er Encounter Details Date Type Department Care Team (Late st Contact Info) Description 06/29/2024 Population Health External Data Unspecified Department Allergies Active Allergy Reactions Criticality Noted Date Comments 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 Quinolones Other (Please comment) 02/19/2003 Hives Moods- becomes nasty Adhesive Tape Rash 01/29/2014 documented as of this encounter (statuses as of 07/06/2024) Medications NEBULIZERS MISCIndications:CO PD, 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) portable [...] 23 Active Vitamin D (Ergocalciferol) 1.25 MG (07453 UT) Oral Capsule (Drisdol) TAKE 1 CAPSULE BY MOUTH ONE TIME PER WEEK Strength: 1.25 MG (29591 UT) 12 Capsule 1 03/19/2023 4:12 PM EDT 02/20/20 23 Active Additional Information Patient not taking.Reported on 09/23/2023 Nitroglycerin 0.4 MG Sublingual Tablet Sublingual (Nitrostat)Indicat [...] PM EDT 08/26/19 24 Active oxygen IN GASIndications:SPARK TESTER D, severe (HCC),Heart failure, systolic, due to [...] PM EDT 01/10/20 24 025 Active Nystatin 793109 UNIT/GM External CreamIndications:C andidal skin infection APPLY [...] as of this encounter (statuses as of 07/06/2024) Active Problems Problem Noted Date Diagnosed Date Nocturnal hypoxemia 06/09/2024 Closed fracture of right tibial plateau 05/29/20 24 Hemarthrosis involving knee joint, right 024 MANDY [...] rinse after steroid. Test performed by Loli WATCHMAKING TEACHER CPFT Hypertensive kidney disease, stage III [...] as of this encounter (statuses as of 07/06/2024) Resolved Problems Problem Noted Date Diagnosed Date [...] as of this encounter (statuses as of 07/06/2024) Immunizations Name Administration Dates Next Due COVID-19 [...] Care Team (Late st Contact Info) Description 07/11/2024 11:00 AM EST Office Visit General Internal Medicine [place] [facility] [place] [address] [place] [id number] Jose Mckenzie, [address] [place] [address] Health Maintenance Due Date Last Done Comments Alpha-1 Antitrypsin 1969 Hepatitis C Screening 1969 Cologuard 1996 Colonoscopy 1996 Sigmoidoscopy 1996 Colorectal Cancer Screening 01/22/2012 Fecal Occult Blood Test 01/22/2012 01/22/20 11, 12/21/2008, 12/03/2007 DISCUSS TOBACCO CESSATION (REFER TO SMARTSET #3291) 12/12/2015 12/11/2014 (Discussed) Adult Wellness Visit 2017 Zoster Vaccines (3 of 3) 03/07/2019 01/10/2019, 02/21 CKD PHOS USE SMARTSET 69245 12/10/202211/22, 12/13/2020, 12/11/2014, Additional history exists Albumin/Creatinine [...] FOR COPD 08/26/2024 08/26/2023 GFR 11/29/2024 05/31/2024, 11/2023, 05/24/2023, Additional history exists HbA1c 11/29/2024 05/31/2024, 09/2022, 06/11/2022, Additional history exists CKD HGB USE SMARTSET 24187 05/31/202505/31, 08/26/2023, 08/26/2023, Additional history exists Depression [...] D LEVEL ONCE IN A LIFETIME-USE SMARTSET# [id number] Completed 05/31/2024, 12/10/2021, 03/01/2019, Additional history exists [...] Documents on File Type Date Recorded Patient 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
--- OUTSIDE RECORDS SUMMARY | 2024-07-25 23:50 | External Medical Summary | Summary of Care ---
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 Quinolones Other (Please comment) 02/19/2003 Hives Moods- becomes nasty Adhesive Tape Rash 01/29/2014 documented as of this encounter (statuses as of 07/19/2024) Medications NEBULIZERS MISCIndications:CO PD, 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) portable [...] 23 Active Vitamin D (Ergocalciferol) 1.25 MG (48905 UT) Oral Capsule (Drisdol) TAKE 1 CAPSULE BY MOUTH ONE TIME PER WEEK Strength: 1.25 MG (45552 UT) 12 Capsule 1 03/19/2023 4:12 PM [...] PM EDT 08/26/19 24 Active oxygen IN GASIndications:IMPORT EXPORT AGENT D, severe (HCC),Heart failure, systolic, due to [...] PM EDT 01/10/20 24 025 Active Nystatin 818159 UNIT/GM External CreamIndications:C andidal skin infection APPLY [...] as of this encounter (statuses as of 07/19/2024) Active Problems Problem Noted Date Diagnosed Date [...] rinse after steroid. Test performed by Loli EXPLOSIVES HANDLER CPFT Hypertensive kidney disease, stage III 9 [...] as of this encounter (statuses as of 07/19/2024) Resolved Problems Problem Noted Date Diagnosed Date [...] as of this encounter (statuses as of 07/19/2024) Immunizations Name Administration Dates Next Due COVID-19 [...] as of this encounter Progress Notes * [place], [place], [facility] - 07/19/2024 11:39 AM EST Telemedicine visit: No [facility] ([facility]) documentation: [facility] follow up phone call for RNCM. Patient reports that her cough seems to have improved from a few weeks ago. She states that she is unsure what will happen if the weather changes, but currently it is pretty good. She said she sometimes coughs up some sputum that is clear in color. Patient reports that she still gets some swelling that comes and goes in her left ankle, but that is pretty normal for her. Patient reports that her weight was 184 today. Patient reports that the top number of her BP is around 112-115, but is unsure what the bottom number is. Patient reports that her blood sugar has been between 110-120, but reports that she hasn't taken her reading yet today. Patient denies any current issues/concerns and states she feels pretty good right now. Patient agreeable to follow up phone call in 1 week. Caleb Barr [facility] Worker Lead YENNY - Zamz[facility] [phone] documented in this encounter Plan of Treatment [...] 03/07/2019 01/10/2019, 02/21 CKD PHOS USE SMARTSET 36759 12/10/202211/22, 12/13/2020, 12/11/2014, Additional history exists Albumin/Creatinine [...] 05/24/2023, Additional history exists HbA1c 11/29/2024 05/31/2024, 1009/2022, 06/11/2022, Additional history exists CKD HGB USE SMARTSET 49156 05/31/202505/31, 08/26/2023, 08/26/2023, Additional history exists Depression [...] D LEVEL ONCE IN A LIFETIME-USE SMARTSET# 90552 Completed 05/31/2024, 12/10/2021, 03/01/2019, Additional history exists [...] Documents on File Type Date Recorded Patient Technical Report Writer Expl anation POLST 08/03/2018 POLST Care Teams Putty And Patch Worker Relationship Specialty Start Date End Date Jose Mckenzie DO PCP - General Internal Medicine 06/02/24 documented as of this encounter
--- OUTSIDE RECORDS SUMMARY | 2024-07-25 23:51 | External Medical Summary | Summary of Care ---
Author Name Unknown Organization [facility] Address [address] [place] [address] Phone [phone] Care Team Providers Care Master Welder Name Role Phone Jose Mckenzie DO Primary Care Provid er Reason for Visit * Reason Onset Date Comments Information 06/27/2024 AAA screening Encounter Details Date Type Department Care Team (Late st Contact Info) Description 06/27/2024 Telephone General Internal Medicine 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 Quinolones Other (Please comment) 02/19/2003 Hives Moods- becomes nasty Adhesive Tape Rash 01/29/2014 documented as of this encounter (statuses as of 06/29/2024) Medications Medication Sig Dispensed Refills Start Date [...] 11/02/2022 Active Vitamin D (Ergocalciferol) 1.25 MG (71811 UT) Oral Capsule (Drisdol) TAKE 1 CAPSULE BY MOUTH ONE TIME PER WEEK Strength: 1.25 MG (38957 UT) 12 Capsule 1 02/19/2023 Active Additional [...] MORNING 90 Tablet 3 09/08/2023 5 Active Lisinopril 10 MG Oral Tablet (Prinivil)Indication s:HTN, goal below 140/90 TAKE ONE TABLET BY MOUTH EVERY DAY 90 Tablet 3 09/08/2023 5 Active Montelukast Sodium 10 MG Oral Tablet (Singulair)Indicatio ns:COPD, severe (HCC) TAKE ONE TABLET BY MOUTH EVERY MORNING 90 Tablet 3 09/16/2023 5 Active Benzonatate 100 MG Oral [...] DAY 54 g 3 01/10/2024 Active Nystatin 937716 UNIT/GM External CreamIndications:Can didal skin infection APPLY [...] AT BEDTIME 360 Capsule 1 02/29/2024 Active Trelegy Ellipta 200-62.5-25 MCG/ACT Aerosol Powder Breath Activated (Fluticasone-Umeclid inium-Vilanterol) Inhale 1 Puff by mouth in the morning. 180 Each 1 05/08/2024 Active rOPINIRole HCl 0.25 MG Oral Tablet (Requip)Indications: RLS (restless legs syndrome),Persistent insomnia TAKE ONE TABLET BY MOUTH EVERY DAY AT BEDTIME 30 Tablet 5 05/15/2024 Active Alendronate Sodium 70 MG Oral Tablet (Fosamax)Indications :High risk for fracture due to osteoporosis by DEXA scan TAKE 1 TABLET BY MOUTH ONCE A WEEK WITH 8 OZ WATER 30 MIN BEFORE 1ST MEAL OF THE DAY, REMAIN UPRIGHT FOR 30 MIN AFTER 12 Tablet 1 05/26/2024 Active Budesonide 0.5 MG/2ML Inhalation Suspension (Pulmicort) PLACE ONE RESPULE INTO 240 ML OF SALINE IN URIAH MED BOTTLE AND IRRIGATE NOSE TWICE DAILY 360 mL 1 05/31/2024 Active Levothyroxine Sodium 75 MCG Oral Tablet (Levoxyl)Indications :Hypothyroidism, unspecified type TAKE 1 TABLET BY MOUTH DAILY AT LEAST 30 MINUTES PRIOR TO FIRST MEAL OF THE DAY OR OTHER MEDICATIONS 90 Tablet 1 06/12/2024 Active Hospital, Clinic, or Other Facility Administered [...] as of this encounter (statuses as of 06/29/2024) Active Problems Problem Noted Date Diagnosed Date [...] rinse after steroid. Test performed by Loli PHONE MANAGER CPFT Hypertensive kidney disease, stage III [...] as of this encounter (statuses as of 06/29/2024) Resolved Problems Problem Noted Date Diagnosed Date [...] as of this encounter (statuses as of 06/29/2024) Immunizations Name Administration Dates Next Due COVID-19 mRNA, LNP-s, No Pre serve, 2-Dose Series ([email or web address]) 05/27/2021,11/21/2020,10/31/2020 Pneumococcal Conjugate Vacc, 13 Valent (Prevnar) [...] 05/12/2020 Hunger Vital Sign Answer Date Recorded Within [...] ages 0-17 years) Not on file 06/28/2024 Sex and Gender Information Value Date Recorded Sex Assigned at Not on file Gender Identity Not on file Sexual Orientation Not on file Job Start Date Occupation Industry Not on file Not on file Not on file documented as of this encounter Miscellaneous Notes * Telephone Encounter - Iveth Reyna LPN - 06/29/2024 9:45 AM EST I am calling to discuss some recommended testing. Our records indicate that you are due for a screening ultrasound of your aorta (this test checks for an enlargement of your aorta at the level of your abdomen). Have you had discussions with your provider about this?we've recently started evaluating your electronic health record to provide better screening and care for people at risk for disease of the aorta (the main artery that carries blood from your heart to the rest of your body). Based on your laboratory results and other clinical conditions, you may be at high risk for an abdominal aortic aneurysm (AAA, an enlargement of your lower aorta). This evaluation doesn't mean you have an AAA. It just means you should get screened at your earliest convenience by having an ultrasound. The screening results will tell your doctor if there's anything they need to examine more closely. Through advanced analysis/trending of this patient's history, they have been identified to have a positive AAA flag and are at a higher risk for Abdominal aortic aneurysm. This advanced analysis estimates the patient's risk for AAA. It only indicates that the patient's chances to have this condition are higher compared to most people. It does not indicate that the patient has this condition, but it is highly recommended the patient have a AAA screening for further evaluation. Outcomes: Outreach not indicated SNF/Hospice/other [facility] * Telephone Encounter - Iveth Reyna LPN - 06/27/2024 2:41 PM EST Through advanced analysis/trending of this patient's history, they have been identified to have a positive AAA flag and are at a higher risk for Abdominal aortic aneurysm. Pt will be contacted by a [facility] nurse to discuss AAA screening. documented in this encounter Plan of Treatment Upcoming Encounters Date Type Department Care Team (Late st Contact Info) Description 07/11/2024 11:00 AM EST Office Visit General [facility] [address] [facility] [place], [place] [address] Jose Mckenzie DO [address] [facility] [place] [address] Health Maintenance Due Date Last Done Comments Alpha-1 Antitrypsin 1969 Hepatitis C Screening 1969 Cologuard 1996 Colonoscopy 1996 Sigmoidoscopy 1996 Colorectal Cancer Screening 01/22/2012 Fecal Occult Blood Test 01/22/2012 01/22/20 11, 12/21/2008, 12/03/2007 DISCUSS TOBACCO CESSATION (REFER TO SMARTSET #3291) 12/12/2015 12/11/2014 (Discussed) Adult Wellness Visit 2017 Zoster Vaccines (3 of 3) 03/07/2019 01/10/2019, 02/21 CKD PHOS USE SMARTSET 83683 12/10/202211/22, 12/13/2020, 12/11/2014, Additional history exists Albumin/Creatinine [...] Additional history exists CKD HGB USE SMARTSET 37464 05/31/202505/31, 08/26/2023, 08/26/2023, Additional history exists Depression [...] D LEVEL ONCE IN A LIFETIME-USE SMARTSET# 32287 Completed 05/31/2024, 12/10/2021, 03/01/2019, Additional history exists [...] Documents on File Type Date Recorded Patient Field Scout Expl anation POL 08/03/2018 POLST Care Teams Master Welder Relationship Specialty Start Date End Date Jose Mckenzie DO [address] [place], [place] [address] PCP - General Internal Medicine 06/02/24 documented as of this encounter
--- OUTSIDE RECORDS SUMMARY | 2024-07-25 23:51 | External Medical Summary | Summary of Care ---
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 Quinolones Other (Please comment) 02/19/2003 Hives Moods- becomes nasty Adhesive Tape Rash 01/29/2014 documented as of this encounter (statuses as of 06/28/2024) Medications Medication Sig Dispensed Refills Start Date [...] 11/02/2022 Active Vitamin D (Ergocalciferol) 1.25 MG (29797 UT) Oral Capsule (Drisdol) TAKE 1 CAPSULE BY MOUTH ONE TIME PER WEEK Strength: 1.25 MG (47042 UT) 12 Capsule 1 02/19/2023 Active Additional [...] EVERY MORNING 90 Tablet 3 09/16/2023 Active Benzonatate 100 MG Oral Capsule [...] 54 g 3 01/10/2024 5 Active Nystatin 734055 UNIT/GM External CreamIndications:Can didal skin infection APPLY [...] OTHER MEDICATIONS 90 Tablet 1 06/12/2024 Active tiZANidine HCl 4 MG Oral Tablet (Zanaflex) Take 0.5 Tablets by mouth every 8 hours as needed for Muscle spasms. Active Hospital, Clinic, or Other Facility Administered Medication Ordered Dose Route Frequency Start Date End Date Status Albuterol Sulfate (Proventil) (2.5 MG/3ML) 0.083% inhalation solution 2.5 mgIndications:Chronic respiratory failure with hypoxia (HCC),COPD, group D, by GOLD 2017 classification ([facility]) 2.5 mg NEBULIZER PRN 12/06/2023 12/05/2024 Acti ve Albuterol Sulfate (Proventil) (5 MG/ML) 0.5% *conc* inhalation solution 2.5 mgIndications:Chronic respiratory failure with hypoxia (HCC),COPD, group D, by GOLD 2017 classification (HCC) 2.5 mg NEBULIZER PRN 12/06/2023 12/05/2024 Acti ve documented as of this encounter (statuses as of 06/28/2024) Active Problems Problem Noted Date Diagnosed Date [...] rinse after steroid. Test performed by Loli OBIEE OBIA SOLUTION ARCHITECT CPFT Hypertensive kidney disease, stage III 9 [...] as of this encounter (statuses as of 06/28/2024) Resolved Problems Problem Noted Date Diagnosed Date [...] Chronic pain 07/04/2012 12/24/2016 Trigeminal neuralgia 07/04/2012 04/21/2 015 Overweight (BMI 25.0-29.9) 06/02/2012 0 12/24/2016 [...] as of this encounter (statuses as of 06/28/2024) Immunizations Name Administration Dates Next Due COVID-19 mRNA, LNP-s, No Pre serve, 2-Dose Series ([employer]) 05/27/2021,11/21/2020,10/31/2020 Pneumococcal Conjugate Vacc, 13 Valent (Prevnar) [...] do you feel lonely or isolated from ose around you? Never 06/28/2024 Financial Resource [...] Upcoming Encounters Date Type Department Care Team (Malia st Contact Info) Description 07/11/2024 11:00 AM EST Office Visit General Internal Medicine [facility] [place] [address] [place] [address] Jose Mckenzie, [address] [facility] [place] [address] Health Maintenance Due Date Last Done Comments Alpha-1 Antitrypsin 1969 Hepatitis C Screening 1969 Cologuard 1996 Colonoscopy 1996 Sigmoidoscopy 1996 Colorectal Cancer Screening 01/22/2012 Fecal Occult Blood Test 01/22/2012 01/22/20 11, 12/21/2008, 12/03/2007 DISCUSS TOBACCO CESSATION (REFER TO SMARTSET #3291) 12/12/2015 12/11/2014 (Discussed) Adult Wellness Visit 2017 Zoster Vaccines (3 of 3) 03/07/2019 01/10/2019, 02/21 CKD PHOS USE SMARTSET 18709 12/10/202211/22, 12/13/2020, 12/11/2014, Additional history exists Albumin/Creatinine [...] Additional history exists CKD HGB USE SMARTSET 47054 05/31/202505/31, 08/26/2023, 08/26/2023, Additional history exists Depression [...] D LEVEL ONCE IN A LIFETIME-USE SMARTSET# 01947 Completed 05/31/2024, 12/10/2021, 03/01/2019, Additional history exists [...] Documents on File Type Date Recorded Patient Freelance Court Reporter Expl anation POL 08/03/2018 POLST Care Teams Feed In Worker Relationship Specialty Start Date End Date Jose Mckenzie DO [address] [place] [address] PCP - General Internal Medicine 06/02/24 documented as of this encounter
--- OUTSIDE RECORDS SUMMARY | 2024-07-25 23:51 | External Medical Summary | Summary of Care ---
Author Name Unknown Organization [facility] Address [address] [place] [address] Phone [phone] Care Team Providers Care Hoist Mechanic Name Role Phone Jose Mckenzie Primary Care Provid er Reason for Visit * Reason Onset Date Comments Lung Cancer Screening Outreach 07/03/2024 Encounter Details Date Type Department Care Team (Late st Contact Info) Description 07/03/2024 Telephone Thoracic Surg [facility] [address] [place] [address] Janelle Esteban, RN Lung Cancer Screening Outreach Allergies Active Allergy Reactions Criticality Noted Date Comments 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 Quinolones Other (Please comment) 02/19/2003 Hives Moods- becomes nasty Adhesive Tape Rash 01/29/2014 documented as of this encounter (statuses as of 07/03/2024) Medications NEBULIZERS MISCIndications:CO PD, 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) portable [...] 23 Active Vitamin D (Ergocalciferol) 1.25 MG (03822 UT) Oral Capsule (Drisdol) TAKE 1 CAPSULE BY MOUTH ONE TIME PER WEEK Strength: 1.25 MG (20670 UT) 12 Capsule 1 03/19/2023 4:12 PM [...] PM EDT 08/26/19 24 Active oxygen IN GASIndications: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 Test performed by Loli TRANSPORT AIDE CPFT Hypertensive kidney disease, stage III [...] as of this encounter (statuses as of 07/03/2024) Resolved Problems Problem Noted Date Diagnosed Date [...] as of this encounter (statuses as of 07/03/2024) Immunizations Name Administration Dates Next Due COVID-19 mRNA, LNP-s, No Pre serve, 2-Dose Series ([employer]) 05/27/2021,11/21/2020,10/31/2020 Pneumococcal Conjugate Vacc, 13 Valent (Prevnar) [...] encounter Miscellaneous Notes * Telephone Encounter - Janelle Esteban RN - 07/03/2024 11:02 AM EST Lung Cancer Screening Program ([facility]) High Risk Outreach Call Summary 07/03/2024 Through advanced analysis/trending of this patient's history, they have been identified to have a positive Lung flag and are at a higher risk for lung cancer. This advanced analysis estimates the patient's risk for lung cancer. It only indicates that the patient's chances to have this condition are higher compared to most people. It does not indicate that the patient has this condition, but it is highly recommended the patient have a low dose CT screening for further evaluation. I have contacted the patient regarding lung cancer screening. Declined. The patient does not want to proceed with Lung Cancer Screening. Note: Discussed lung cancer screening program with patient again, as she is missed the last 2 scans. She reports she no longer wants to be a part of the program, because she feels she would not do anything if they did find a suspicious nodule Janelle Esteban RN documented in this encounter Plan of Treatment Upcoming Encounters Date Type Department Care Team (Late st Contact Info) Description 07/11/2024 11:00 AM EST Office Visit General Internal Medicine [facility] [address] [facility] [place] [address] Jose Mckenzie DO [address] [facility] [place] [address] Health Maintenance Due Date Last Done Comments Alpha-1 Antitrypsin 1969 Hepatitis C Screening 1969 Cologuard 1996 Colonoscopy 1996 Sigmoidoscopy 1996 Colorectal Cancer Screening 01/22/2012 Fecal Occult Blood Test 01/22/2012 01/22/20, 12/21/2008, 12/03/2007 DISCUSS TOBACCO CESSATION (REFER TO SMARTSET #3291) 12/12/2015 12/11/2014 (Discussed) Adult Wellness Visit 2017 Zoster Vaccines (3 of 3) 03/07/2019 01/10/2019, 02/21 CKD PHOS USE SMARTSET 33202 12/10/202211/22, 12/13/2020, 12/11/2014, Additional history exists Albumin/Creatinine [...] Additional history exists CKD HGB USE SMARTSET 75938 05/31/202505/31, 08/26/2023, 08/26/2023, Additional history exists Depression [...] D LEVEL ONCE IN A LIFETIME-USE SMARTSET# 63501 Completed 05/31/2024, 12/10/2021, 03/01/2019, Additional history exists [...] Documents on File Type Date Recorded Patient Patient Services Coordinator Expl anation POLST 08/03/2018 POLST Care Teams Hoist Mechanic Relationship Specialty Start Date End Date Jose Mckeznie DO [address] [place] [address] PCP - General Internal Medicine 06/02/24 documented as of this encounter
--- OUTSIDE RECORDS SUMMARY | 2024-07-25 23:52 | External Medical Summary | Summary of Care ---
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 Quinolones Other (Please comment) 02/19/2003 Hives Moods- becomes nasty Adhesive Tape Rash 01/29/2014 documented as of this encounter (statuses as of 06/27/2024) Medications Medication Sig Dispensed Refills Start Date [...] 11/02/2022 Active Vitamin D (Ergocalciferol) 1.25 MG (19028 UT) Oral Capsule (Drisdol) TAKE 1 CAPSULE BY MOUTH ONE TIME PER WEEK Strength: 1.25 MG (50076 UT) 12 Capsule 1 02/19/2023 Active Additional [...] 54 g 3 01/10/2024 5 Active Nystatin 703382 UNIT/GM External CreamIndications:Can didal skin infection APPLY [...] group D, by GOLD 2017 classification ([facility]) 2.5 mg NEBULIZER PRN 12/06/2023 12/05/2024 Acti ve Albuterol Sulfate (Proventil) (5 MG/ML) 0.5% *conc* inhalation solution 2.5 mgIndications:Chronic respiratory failure with hypoxia (HCC),COPD, group D, by GOLD 2017 classification (HCC) 2.5 mg NEBULIZER PRN 12/06/2023 12/05/2024 Acti ve documented as of this encounter (statuses as of 06/27/2024) Active Problems Problem Noted Date Diagnosed Date [...] rinse after steroid. Test performed by Loli OTR VAN CDL TRUCK DRIVER CPFT Hypertensive kidney disease, stage III 9 [...] as of this encounter (statuses as of 06/27/2024) Resolved Problems Problem Noted Date Diagnosed Date [...] as of this encounter (statuses as of 06/27/2024) Immunizations Name Administration Dates Next Due COVID-19 mRNA, LNP-s, No Pre serve, 2-Dose Series ([facility]) 05/27/2021,11/21/2020,10/31/2020 Pneumococcal Conjugate Vacc, 13 Valent (Prevnar) [...] Monitoring 09/14/2020 09/14/2019 CKD PHOS USE SMARTSET 17548 12/10/202211/22, 12/13/2020, 12/11/2014, Additional history exists Albumin/Creatinine [...] Additional history exists CKD HGB USE SMARTSET 10489 05/31/202505/31, 08/26/2023, 08/26/2023, Additional history exists DXA Scan 12/13/2025 12/14/2023, 11/22, 12/07/2018, Additional history exists DTap/Tdap Vaccines (4 - Td or Tdap) 08/03/2028 08/03/2018, 08/03/2018, 05/16/2008 Lipid Panel 05/31/2029 05/31/2024, 11/22, 12/13/2020, Additional history exists Pneumococcal Vaccine: 65+ Years Completed 07/07/2017, 12/02/2015, 08/04/2006, Additional history exists Lung Cancer Screening Completed 04/15/2020 , 05/11/2006, 05/03/2003 VITAMIN D LEVEL ONCE IN A LIFETIME-USE SMARTSET# 27500 Completed 05/31/2024, 12/10/2021, 03/01/2019, Additional history exists [...] Documents on File Type Date Recorded Patient Retail Receiving Clerk Expl anation POLST 08/03/2018 POLST Care Teams Food Safety Technician Relationship Specialty Start Date End Date Jose Mckenzie DO [address] [place], [place] [id number] PCP - General Internal Medicine 06/02/24 documented as of this encounter
--- OUTSIDE RECORDS SUMMARY | 2024-07-25 23:52 | External Medical Summary | Continuity of Care Document ---
Author Name Unknown Organization [address] Address [address] [place] [address] [id number] Care Team Providers Care Tree Sapper Name Role Phone Vijaya Adelitaniyah Primary Care Physician [phone] Encounter [facility] [id number] Date(s): 06/19/24 - 06/19/24 [facility] [address] [place] [id number] [facility] Medicine [address] [place] [id number] Encounter Diagnosis Tibial plateau fracture, right(Discharge Diagnosis) - 06/19/24 Left ankle sprain(Discharge Diagnosis) - 06/19/24 Discharge Disposition: Home or Self Care Attending Physician: MD Jennifer, Jhon A Allergies, Adverse Reactions, Alerts Substance Criticality Severity Reaction Reaction Severity Status codeine unknown Morphine Active morphine unknown Active Adhesive bandage unknown Act hussein quinolones (fluoroquinolone antibiotics) unknown Active Assessment and Plan Extracted from: Title:Orthopaedics Office Visit Note Author:Dale viera PA-C, [place] Date:06/19/24 1.Tibial plateau fracture, right Patient can start to do active/active assisted range of motion with her knee. Her brace was unlocked today from 0 to 90 degrees. Physical therapy can progress her range of motion as tolerated. She can start to progress her weightbearing with her right knee starting with 25% weightbearing utilizing a walker. This can be increased weekly and she can progress to full weightbearing as tolerated over the next 6 weeks. 2.Left ankle sprain We can transition her out of the cam boot and into an ankle lacer. She has been relying heavily on this leg and notes some swelling and pain towards the end of the day which is not unusual for the amount of activity she has had to do with her left leg.Hopefully allowing some weightbearing with her knee will help to offload her ankle. She should have the ankle lacer on during times of activity. Advised that if she is having a lot of pain ambulating during the day and the ankle lacer she will need to go back to the boot for a week or 2. Recommend icing and anti-inflammatories towards the end of the day. She also can progress her physical therapy with her ankle and start to work on some strengthening and stabilizing. Hopefully allowing some weightbearing with her knee will help to offload her ankle. She should have the ankle lacer on during times of activity. Advised that if she is having a lot of pain ambulating during the day and the ankle lacer she will need to go back to the boot for a week or 2. Recommend icing and anti-inflammatories towards the end of the day. She also can progress her physical therapy with her ankle and start to work on some strengthening and stabilizing. Follow up in 4-6 weeksor sooner with any questions or concerns. Medications alendronate 70 mg oral tablet Start: 06/19/24 2:27:00 PM EDT, 1 tab, PO, q7days Start Date: 06/19/24 Status: Ordered aspirin 81 mg oral capsule Start: 06/19/24 2:32:00 PM EDT Start Date: 06/19/24 Status: Ordered atorvastatin Start: 06/19/24 2:27:00 PM EDT, 40 mg =, PO Start Date: 06/19/24 Status: Ordered azelastine 0.05% ophthalmic solution Start: 06/19/24 2:32:00 PM EDT Start Date: 06/19/24 Status: Ordered calcium (as carbonate) 500 mg oral tablet Start: 06/19/24 2:34:00 PM EDT Start Date: 06/19/24 Status: Ordered cholecalciferol Start: 06/19/24 2:27:00 PM EDT Start Date: 06/19/24 Status: Ordered gabapentin Start: 06/19/24 2:31:00 PM EDT, 300 mg =, 2 tabs in evening 1 cap in afternoon 1 cap in the morning Start Date: 06/19/24 Status: Ordered guaiFENesin Start: 06/19/24 2:35:00 PM EDT, 600 mg = Start Date: 06/19/24 Status: Ordered ipratropium Start: 06/19/24 2:36:00 PM EDT Start Date: 06/19/24 Status: Ordered Lasix Start: 06/19/24 2:26:00 PM EDT, 20 mg = Start Date: 06/19/24 Status: Ordered levalbuterol 0.31 mg/3 mL for nebulization Start: 06/19/24 2:35:00 PM EDT Start Date: 06/19/24 Status: Ordered levocetirizine Start: 06/19/24 2:27:00 PM EDT, 5 mg = Start Date: 06/19/24 Status: Ordered levothyroxine Start: 06/19/24 2:33:00 PM EDT, 75 mcg = Start Date: 06/19/24 Status: Ordered Lidocream Start: 06/19/24 2:34:00 PM EDT Start Date: 06/19/24 Status: Ordered montelukast Start: 06/19/24 2:35:00 PM EDT, 10 mg = Start Date: 06/19/24 Status: Ordered Nitrostat Start: 06/19/24 2:35:00 PM EDT Start Date: 06/19/24 Status: Ordered nystatin 100,000 units/g topical cream Start: 06/19/24 2:33:00 PM EDT Start Date: 06/19/24 Status: Ordered pantoprazole Start: 06/19/24 2:32:00 PM EDT, 40 mg = Start Date: 06/19/24 Status: Ordered PARoxetine Start: 06/19/24 2:32:00 PM EDT, 40 mg = Start Date: 06/19/24 Status: Ordered rOPINIRole Start: 06/19/24 2:36:00 PM EDT, 0.25 mg = Start Date: 06/19/24 Status: Ordered tiZANidine Start: 06/19/24 2:34:00 PM EDT, 4 mg = Start Date: 06/19/24 Status: Ordered Tradjenta Start: 06/19/24 2:33:00 PM EDT Start Date: 06/19/24 Status: Ordered Trelegy Ellipta Start: 06/19/24 2:26:00 PM EDT Start Date: 06/19/24 Status: Ordered Problem List No Chronic Problems Diagnosis Diagnosis Type Effective Dates Health Status Cl inical Service Informant Tibial plateau fracture, right Discharge Diagnosis 06/19/24 Left ankle sprain Discharge Diagnosis 06/19/24 Vital Signs Most recent to oldest [Reference Range]: 1 Patient Weight 185.0 kg (06/19/24 2:22 PM) Social History Social History Type Response Sex Female Sex Representation Female (finding) Ortho Outpt Note * JUSTA Monroe, Judith: PERFORM, MODIFY Event Display: Ortho Outpt Note Authored Date: Primary Care Provider MD Lilly Juyeon History of Present Illness Deja is a 73-year-old female here today following up for right knee lateral tibial plateau fracture and left ankle sprain. She was seen 05/16in the ER after she has sustained a fall. She had been having issues with her knee and feels that the knee gave out and then she rolled her ankle and fell. She had her knee aspirated which showed a hemarthrosis. X-rays of her knee showed arthritic changes but no fracture initially. Left foot and ankle x-rays were done that showed no fracture.A CT scan was done that showed lateral tibial plateau fracture. She was given a hinged brace and allowed to do 0 to 30 degrees range of motion. Nonweightbearing on her left lower extremity. She was given a cam boot and could be weightbearing as tolerated on her left ankle Physical Exam Vitals & Measurements WT:185.000kg(Dosing) WT:185.0kg Right knee: Mild knee effusion. Patient has no major pain over her medial or lateral joint lateral or the lateral plateau. She has full extension and is able to flex to 85 degrees without any pain. Straight leg raise is intact. Left ankle: She has some lateral soft tissue swelling with no ecchymosis today. She is tender over the ATFL ligament. No pain over her deltoid or medially about her ankle. No pain over her lateral foot. Diagnostic Results Right knee x-rays were done today in the office and interpreted personally by me. No evidence of acute fractures. I reviewed previous CT that showed lateral tibial plateau fracture that was not previously evident on x-ray and I do not appreciate it today either. Left ankle x-rays were done today in the office and interpreted personally by me. Lateral ankle swelling noted however no acute fracture and joint spaces well-maintained. Assessment/Plan 1.Tibial plateau fracture, right Patient can start to do active/active assisted range of motion with her knee. Her brace was unlocked today from 0 to 90 degrees. Physical therapy can progress her range of motion as tolerated. She can start to progress her weightbearing with her right knee starting with 25% weightbearing utilizing a walker. This can be increased weekly and she can progress to full weightbearing as tolerated over the next 6 weeks. 2.Left ankle sprain We can transition her out of the cam boot and into an ankle lacer. She has been relying heavily on this leg and notes some swelling and pain towards the end of the day which is not unusual for the amount of activity she has had to do with her left leg.Hopefully allowing some weightbearing with her knee will help to offload her ankle. She should have the ankle lacer on during times of activity. Advised that if she is having a lot of pain ambulating during the day and the ankle lacer she will need to go back to the boot for a week or 2. Recommend icing and anti-inflammatories towards the end of the day. She also can progress her physical therapy with her ankle and start to work on some strengthening and stabilizing. Hopefully allowing some weightbearing with her knee will help to offload her ankle. She should have the ankle lacer on during times of activity. Advised that if she is having a lot of pain ambulating during the day and the ankle lacer she will need to go back to the boot for a week or 2. Recommend icing and anti-inflammatories towards the end of the day. She also can progress her physical therapy with her ankle and start to work on some strengthening and stabilizing. Follow up in 4-6 weeksor sooner with any questions or concerns. Problem List/Past Medical History Ongoing No chronic problems Medications alendronate(alendronate 70 mg oral tablet), 70 mg= 1 tab, PO, q7days aspirin(aspirin 81 mg oral capsule) atorvastatin, 40 mg, PO azelastine ophthalmic(azelastine 0.05% ophthalmic solution) calcium carbonate(calcium (as carbonate) 500 mg oral tablet) cholecalciferol fluticasone/umeclidinium/vilanterol(Trelegy Ellipta) furosemide(Lasix), 20 mg gabapentin, 300 mg guaiFENesin, 600 mg ipratropium levalbuterol(levalbuterol 0.31 mg/3 mL for nebulization) levocetirizine, 5 mg levothyroxine, 75 mcg lidocaine topical(Lidocream) linagliptin(Tradjenta) montelukast, 10 mg nitroglycerin(Nitrostat) nystatin topical(nystatin 100,000 units/g topical cream) pantoprazole, 40 mg PARoxetine, 40 mg rOPINIRole, 0.25 mg tiZANidine, 4 mg Allergies Adhesive bandageunknown codeineunknown, Morphine morphineunknown quinolones (fluoroquinolone antibiotics)unknown Recommendations Health Maintenance Pending(in the next year) OverDue Adult Influenza Vaccine due02/20/24and every 1year Due Adult COVID-19 Vaccination due06/19/24Unknown Frequency Adult Social Determinants of Health Screening due06/19/24Unknown Frequency Adult Tdap/Td Vaccine due06/19/24Unknown Frequency Body Mass Index due06/19/24Unknown Frequency Breast Cancer Screening due06/19/24Unknown Frequency Colorectal Cancer Screening due06/19/24Unknown Frequency Hepatitis C Screening due06/19/24One-time only Lipid Screening due06/19/24Unknown Frequency Medicare Annual Wellness Visit due06/19/24and every 1year Osteoporosis Screening due06/19/24One-time only Pneumococcal Vaccine Older Adults due06/19/24One-time only Shingles Vaccine due06/19/24One-time only Satisfied(in the past 1 year) There are no satisfied recommendations within the defined date range Electronic Signature on File Electronically Reviewed/Signed by: Judith Monroe PA-C Author Signature Dt/Tm:06/19/2024 03:22 PM Physician Wine Bottle Inspector, [facility] [address] [address] Electronically Reviewed/Signed by: Judith Monroe PA-C Cosigner Signature Dt/Tm: 06/20/2024 09:38 AM Physician Wine Bottle Inspector, [facility] [address] [address] Electronically Reviewed/Signed by: Jhon Rodriguez MD Cosigner Signature Dt/Tm: 06/20/2024 10:35 AM [facility] Public [facility] Nutritionist Department [facility] [address], [place] [address] Patient Care team information Care Team Personnel Name: MD Lilly Juyeon Position: Referring DIRECT Member Role: Primary Care Provider Address: [address] [place] [address] [address] [place] [address] [place] Care Team Related Persons Name: PRABHA LACY Name: LAUREN LACY
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
--- OUTSIDE RECORDS SUMMARY | 2024-07-25 23:52 | External Medical Summary | Summary of Care ---
Author Name Unknown Organization [facility] Address [address] [place] [address] Phone [phone] Care Team Providers Care Mothers Helper Name Role Phone HectorlaurenJoseothy Primary Care Provid er Reason for Visit * Reason Onset Date Comments Care Home Visit - Discharge 06/22/2024 Encounter Details Date Type Department Care Team (Latest Contact Info) Description 06/22/2024 12:30 PM EDT Care Home Visit [facility] [address] [id number] Isabella Guzman PA-C [address] [phone] Closed fracture of right tibial plateau with routine healing, subsequent encounter*; Hemarthrosis involving knee joint, right; MANDY (acute kidney injury) ([facility]); Hypertensive kidney disease, stage III; Hypertensive heart disease with systolic heart failure and stage 3 chronic kidney disease, unspecified HF chronicity, unspecified whether stage 3a or 3b CKD ([facility]); Heart failure, systolic, due to idiopathic cardiomyopathy ([facility]); COPD, group D, by GOLD 2017 classification ([facility]); Nocturnal hypoxemia; Type 2 diabetes mellitus with hemoglobin A1c goal of less than 8.0% ([facility]); Other specified hypothyroidism; Dyslipidemia, goal LDL below 70; HTN, goal below 140/90; Gastroesophageal reflux disease without esophagitis; Primary osteoarthritis involving multiple joints; Current mild episode of major depressive disorder without prior episode ([facility]); Impaired mobility and ADLs Allergies Active Allergy Reactions Criticality Noted Date Comments 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 Quinolones Other (Please comment) 02/19/2003 Hives Moods- becomes nasty Adhesive Tape Rash 01/29/2014 documented as of this encounter (statuses as of 06/22/2024) Medications Medication Sig Dispensed Refills Start Date [...] 11/02/2022 Active Vitamin D (Ergocalciferol) 1.25 MG (18513 UT) Oral Capsule (Drisdol) TAKE 1 CAPSULE BY MOUTH ONE TIME PER WEEK Strength: 1.25 MG (75156 UT) 12 Capsule 1 02/19/2023 Active Additional [...] MOUTH FOUR TIMES A DAY 54 g 01/10/2024 Active Nystatin 070697 UNIT/GM External CreamIndications:Can didal skin infection APPLY TO AFFECTED AREA(S) TWICE A DAY FOR 2 WEEKS 60 g 01/21/2024 Active Atenolol 25 MG Oral Tablet (Tenormin)Indication s:HTN, goal below 140/90,Heart failure, systolic, due to idiopathic cardiomyopathy (HCC) TAKE ONE TABLET BY MOUTH EVERY MORNING 90 Tablet 1 02/28/2024 Active Gabapentin 300 MG Oral Capsule (Neurontin)Indicatio ns:Pain of left thigh TAKE 1 CAPSULE BY MOUTH EVERY MORNING AND AT NOON AND TAKE 2 CAPSULES AT BEDTIME 360 Capsule 02/29/2024 Active Trelegy Ellipta 200-62.5-25 MCG/ACT Aerosol Powder Breath Activated (Fluticasone-Umeclid inium-Vilanterol) Inhale 1 Puff by mouth in the morning. 180 Each 1 05/08/2024 Active rOPINIRole HCl 0.25 MG Oral Tablet (Requip)Indications: RLS (restless legs syndrome),Persistent insomnia TAKE ONE TABLET BY MOUTH EVERY DAY AT BEDTIME 30 Tablet 5 05/15/2024 5 Active Alendronate Sodium 70 MG Oral [...] as of this encounter (statuses as of 06/22/2024) Active Problems Problem Noted Date Diagnosed Date [...] rinse after steroid. Test performed by [facility]oli [employer] [facility] Hypertensive kidney disease, stage III 9 [...] as of this encounter (statuses as of 06/22/2024) Resolved Problems Problem Noted Date Diagnosed Date [...] as of this encounter (statuses as of 06/22/2024) Immunizations Name Administration Dates Next Due COVID-19 [...] Progress Notes * Isabella Guzman PA-C - 06/22/2024 12:33 PM EDT Images from the original note were not included. DISCHARGE NOTE TRANSITION EVENT: Type: Discharge to home Date: June 22 Code Status: Full Code Name: Danni Patricio Date of : 1950 This note pertains to care provided at [facility]. Please see facility medical record for original note. This note is not to be edited or addended in [employer]. Editing or addending needs to occur in the facilities medical record. Discharge Medications: S: Danni Patricio is being discharged from [facility] to home. Admitted to [facility]hab [facility] on 05/26/24 for PT/OT. Future recommendations: 1) F/U with PCP within 1 week 2) Home health consult for PT/OT 3) F/U with ortho 4 weeks 4) Cont 25 % WB to RLE until sees ortho back 5) cont chronic 2 L 02 HS Has history of : Past Medical History: Diagnosis Date Asthma Chronic rhinitis Constipation COPD (chronic obstructive pulmonary disease) ([facility]) COPD, very severe ([facility]) Depressive disorder, not elsewhere classified Dyslipidemia, goal LDL below 100 06/06/2010 Esophageal reflux Gastroesophageal reflux 06/02/2012 Generalized anxiety disorder Generalized osteoarthritis Heart failure, systolic, due to idiopathic cardiomyopathy ([facility]) 01/18/2014 History of tracheostomy 01/24/2014 HTN, goal below 140/90 11/08/2014 Hypothyroidism 10/02/2011 Hypoxemia 2-4 L Irritable bowel syndrome Major depressive disorder, single episode, unspecified 09/14/2019 More specified/recent Dx listed on PL Menopause Migraine with aura Migraines-Classical Panic disorder Thrush 09/20/2017 Vitamin D deficiency 06/02/2012 Patient Active Problem List Diagnosis Anxiety state Vitamin D deficiency Heart failure, systolic, due to idiopathic cardiomyopathy ([facility]) HTN, goal below 140/90 Primary osteoarthritis involving multiple joints Current smoker Hypothyroidism Macular degeneration Osteoarthritis of cervical spine Type 2 diabetes mellitus with hemoglobin A1c goal of less than 8.0% ([facility]) Dyslipidemia, goal LDL below 70 Diabetes mellitus with stage 3 chronic kidney disease ([facility]) Hypertensive kidney disease, stage III COPD, group D, by GOLD 2017 classification ([facility]) High risk for fracture due to osteoporosis by DEXA scan Gastroesophageal reflux disease without esophagitis Current mild episode of major depressive disorder without prior episode ([facility]) Chronic respiratory failure with hypoxia ([facility]) Hypertensive heart disease with systolic heart failure and stage 3 chronic kidney disease ([facility]) Closed fracture of right tibial plateau Hemarthrosis involving knee joint, right MANDY (acute kidney injury) ([facility]) Impaired mobility and ADLs Nocturnal hypoxemia Past Surgical History: Procedure Laterality Date INFORMATION 7/07 right wrist fx/repair LIGATE/CUT OVIDUCT(S) age 35 Tubal Ligation MAXIL SINUS ENDOSCOPY W/TISS REMOVE 04/10/2011 Dr. Yin NASAL ENDOSCOPY, PARTIAL ETHMOIDECTOMY 04/10/2011 Dr. Yin NASAL/SINUS ENDOSCOPY, SURGICAL 04/10/2011 Dr. Yin NASAL/SINUS ENDOSCOPY, SURGICAL 04/10/2011 Dr. Yin REPAIR OF NASAL SEPTUM 04/10/2011 Dr. Yin Family History Problem Relation Name Age of Onset Neurological Disorder Mother dementia Heart Disorder Mother of [place] Heart Disorder Father Stroke Sister 21 Other (COPD) Sister No Past Hx Son No Past Hx Son Cancer Grandmother (Paternal) Cancer Grandfather (Paternal) Diabetes Other Hypertension Other Mental Disorder Other Allergies Other 2 nephews Asthma Other 1 niece, 1 nephew Family Status Relation Status Mo Fa Sis Alive Sis Alive Sis Alive Sis Alive Sis Alive Bro Alive Bro Alive Son (Not Specified) Son (Not Specified) PGMA (Not Specified) PGFA (Not Specified) Other (Not Specified) Other (Not Specified) Other (Not Specified) Other (Not Specified) Other (Not Specified) Social History Socioeconomic History Marital status: Spouse [...] yarn transfusions: No exercise: No diet: No baptism/adventism: No marital status: for 20+ yrs, 05/2017 [...] Needs: Not on file Social Connections: Unknown (06/22/2024) Social Connections How often do you feel lonely or isolated from those around you? (Adult - for ages 18 years and over): Not on file Housing Stability: Not on file Review of patient's allergies indicates: Allergen Reactions Morphine And Codeine addiction Quinolones Other (Please comment) Hives Moods- becomes nasty Tape [Adhesive Tape] Rash Review of Systems: As per HPI SNF course of stay: Prior to admission at this facility pt was treated at [facility]. She was initially admitted after 2 falls at home and a "syncopal" episode. She was admitted with Hemarthrosis of R kneesecondary to R tibial plateau fracture. She was [...] to low BP. [facility] returned same day after refusing to stay at the facility. She was readmitted for MANDY and given IV fluids. Her lasix was held and remained on hold at time of d/c with rec to consider restarting in 2-3 daysdepending upon her BMP. She was d/c'ed and admitted here for PT/OT. 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 No SO Adequate nutrition/fluids: Yes Bowel/Bladder dysfunction: No Assistive Devices: non ambulating ADL: dependent O: PHYSICALEXAM: I reviewed the most recent facilities vitals. General: alert, no distress, well nourished and well developed Head: Normocephalic, No masses, lesions, tenderness or abnormalities Eye Exam: Conjunctiva are pink and non-injected, sclera clear Ears: External ears normal Nose: no mucosal erythema, no mucosal edema, no purulent discharge Oropharynx: no exudate, no erythema, lips, buccal mucosa, and tongue normal and mucous membranes are moist Neck: supple, no adenopathy Heart: regular rate & rhythm, no murmurs Lungs: lungs clear to auscultation Abdomen: abdomen soft, non-tender, normal bowel sounds and no masses or organomegaly Extremities: no edema, no clubbing, no cyanosis Neuro Exam: alert & oriented x 3 with fluent speech, no focal motor/sensory deficits Basic Panel Results: Results for orders placed [...] 11.1 fL nRBCs 0 <=0 /100 WBCs Lipid Panel Results: Results for orders placed or performed in visit on 05/31/24 LIPID PANEL WITHOUT DIRECT LDL Result Value Ref Range Triglycerides 83 <=174 mg/dL Cholesterol 94 <200 mg/dL HDL Cholesterol 35 (L) >49 mg/dL Non-HDL Cholesterol 59 <=159 mg/dL LDL Cholesterol 42 <=129 mg/dL Results for orders placed or performed in visit on 12/10/21 LIPID PANEL WITH DIRECT LDL IF TG IS HIGH Result Value Ref Range Triglycerides 106 <=174 mg/dL Cholesterol 108 <200 mg/dL HDL Cholesterol 31 (L) >49 mg/dL Non-HDL Cholesterol 77 <=159 mg/dL LDL Cholesterol 56 <=129 mg/dL ALT Results: Lab Results Component Value Date/Time ALT - [facility] 20 05/31/2024 06:35 AM ALT - [facility] 17 08/26/2023 02:37 PM ALT - [facility] 16 05/24/2023 02:17 PM ALT - [facility] 19 03/01/2019 01:32 PM ALT - [facility] 35 01/04/2018 11:23 AM ALT - [facility] 34 07/07/2017 01:56 PM ALTERNARIA IGE - [facility] <0.10 10/30/2015 12:18 PM AST Results: Lab Results Component Value Date/Time AST - [facility] 16 05/31/2024 06:35 AM AST - [facility] 13 08/26/2023 02:37 PM AST - [facility] 16 05/24/2023 02:17 PM AST - [facility] 17 03/01/2019 01:32 PM AST - [facility] 31 01/04/2018 11:23 AM AST - [facility] 27 07/07/2017 01:56 PM TSH Results: Lab Results Component Value Date/Time TSH - [facility] 0.59 05/24/2023 02:17 PM TSH - [facility] 0.71 06/11/2022 02:22 PM TSH - [facility] 0.36 12/10/2021 04:30 PM TSH - [facility] 2.65 08/19/2017 11:41 AM TSH - [facility] 3.63 07/07/2017 01:56 PM TSH - [facility] 1.07 12/24/2016 02:32 PM TSH - [facility] 1.990 10/09/2018 12:00 AM Hemoglobin AIC Results: Lab Results Component Value Date/Time HEMOGLOBIN A1C - [facility] 6.3 (H) 05/31/2024 06:35 AM HEMOGLOBIN A1C - [facility] 6.3 (H) 05/24/2023 02:17 PM HEMOGLOBIN A1C - [facility] 6.2 (H) 06/11/2022 02:22 PM HEMOGLOBIN A1C - [facility] 7.1 (H) 2019 03:00 PM HEMOGLOBIN A1C - [facility] 7.2 (H) 03/01/2019 01:30 PM HEMOGLOBIN A1C - [facility] 6.5 (H) 08/03/2018 03:49 PM A: Closed fracture of right tibial plateau with routine healing, subsequent encounter (Primary) Hemarthrosis involving knee joint, right MANDY (acute kidney injury) ([facility]) Hypertensive kidney disease, stage III Hypertensive heart disease with systolic heart failure and stage 3 chronic kidney disease, unspecified HF chronicity, unspecified whether stage 3a or 3b CKD ([facility]) Heart failure, systolic, due to idiopathic cardiomyopathy ([facility]) COPD, group D, by GOLD 2017 classification ([facility]) Nocturnal hypoxemia Type 2 diabetes mellitus with hemoglobin A1c goal of less than 8.0% ([facility]) Other specified hypothyroidism Dyslipidemia, goal LDL below 70 HTN, goal below 140/90 Gastroesophageal reflux disease without esophagitis Primary osteoarthritis involving multiple joints Current mild episode of major depressive disorder without prior episode ([facility]) Impaired mobility and ADLs P: 1. Discharge to home 2. Home Health was consulted for nursing, PT, and OT. 3. Copy of chart sent to PCP 4. Patient to follow up with PCP within 7 days. 5. I spent 56 minutes on discharge. 7. [facility] Given: d/c to home Electronically signed by: Isaeblla Guzman PA-C documented in this encounter Plan of Treatment [...] Monitoring 09/14/2020 09/14/2019 CKD PHOS USE SMARTSET 55592 12/10/202211/22, 12/13/2020, 12/11/2014, Additional history exists Albumin/Creatinine [...] Additional history exists CKD HGB USE SMARTSET [id number] 05/31/202505/31, 08/26/2023, 08/26/2023, Additional history exists DXA Scan 12/13/2025 12/14/2023, 11/22, 12/07/2018, Additional history exists DTap/Tdap Vaccines (4 - Td or Tdap) 08/03/2028 08/03/2018, 08/03/2018, 05/16/2008 Lipid Panel 05/31/2029 05/31/2024, 11/22, 12/13/2020, Additional history exists Pneumococcal Vaccine: 65+ Years Completed 07/07/2017, 12/02/2015, 08/04/2006, Additional history exists Lung Cancer Screening Completed 04/15/2020 , 05/11/2006, 05/03/2003 VITAMIN D LEVEL ONCE IN A LIFETIME-USE SMARTSET# [id number] Completed 05/31/2024, 12/10/2021, 03/01/2019, Additional history exists [...] plateau with routine healing, subsequent encounter- Primary Hemarthrosis involving knee joint, right MANDY (acute kidney injury) ([facility]) Acute kidney failure, unspecified Hypertensive kidney disease, stage III Unspecified hypertensive kidney disease with chronic kidney disease stage I through stage IV, or unspecified Hypertensive heart disease with systolic heart failure and stage 3 chronic kidney disease, unspecified HF chronicity, unspecified whether stage 3a or 3b CKD ([facility]) Heart failure, systolic, due to idiopathic cardiomyopathy ([facility]) Unspecified systolic heart failure COPD, group D, by GOLD 2017 classification ([facility]) Nocturnal hypoxemia Hypoxemia Type 2 diabetes mellitus with hemoglobin A1c goal of less than 8.0% ([facility]) Other specified hypothyroidism Dyslipidemia, goal LDL below 70 Other and unspecified hyperlipidemia HTN, goal below 140/90 Unspecified essential hypertension Gastroesophageal reflux disease without esophagitis Esophageal reflux Primary osteoarthritis involving multiple joints Current mild episode of major depressive disorder without prior episode ([facility]) Impaired mobility and ADLs Mechanical problems with limbs documented in this encounter Advance Directives Documents on File Type Date Recorded Patient [employer] Expl anation POLST 08/03/2018 POL Care Teams Mothers Helper Relationship Specialty Start Date End Date Jose Mckenzie DO [address] [phone] PCP - General Internal Medicine 06/02/24 documented as of this encounter
[2024-07-26] MEDS: cefTRIAXone SODIUM 2,000 MG/50 ML BAG IV SCH (04:04)
[2024-07-26 10:19] LABS: Hematocrit (blood only) 32.6 % (37.0-47.0); Hemoglobin 10.7 g/dl (12.0-16.0); Mean Corpuscular Hemoglobin 30.5 pg (25.0-34.0); Mean Corpuscular Hgb Conc 32.8 g/dL (32.0-36.0); Mean Corpuscular Volume 92.9 fL (80.0-100.0); Mean Platelet Volume 9.8 fL (9.4-12.4); Platelet Count 354 K/uL (130-400); RDW Coefficient of Variation 13.9 % (11.5-14.5); RDW Standard Deviation 47.4 fL (36.4-46.3); Red Blood Count 3.51 M/uL (4.20-5.40); White Blood Count 9.09 K/ul (4.8-10.8)
[2024-07-26 10:48] LABS: Albumin Globulin Ratio 1.3 (0.9-2); Albumin Level 3.8 gm/dl (3.4-5.0); BUN Creatinine Ratio 14.9 (10-20); Bilirubin,Total 0.6 mg/dl (0.2-1.0); Calcium 9.5 mg/dl (8.6-10.3); Creatinine Clr Calc Pharmacy 38.7 ml/min; Magnesium 1.8 mg/dl (1.7-2.4); Phosphorus 2.8 mg/dl (2.5-4.9); Potassium 3.6 mmol/L (3.5-5.1); Total Protein 6.8 gm/dl (6.0-8.3)
--- NOTE | 2024-07-26 15:54 | Hospitalist Progress Note ---
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 She is being managed for the following: Possible atypical pneumonia Did not meet SIRS criteria at presentation, no sepsis POA, admitting WBC and procalcitonin elevated. Follow admitting blood culture, send sputum culture. Continue cefepime 07/25 --> rocephin 07/26 and doxycycline 07/25. Add lactobacillus. Follow clinically. Oropharyngeal thrush: Topical Rx for oropharyngeal thrush, monitor. Complicated UTI: Admitting UA suggestive of UTI, admitting urine culture positive for E. coli. Antibiotic as above. 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 difficile. Continue to monitor. Acute kidney injury over CKD stage III: Admitting creatinine of 1.81, baseline creatinine around 1.5. Admitting CTAP reviewed, no obstruction (non obstructive rt renal stone 4mm). Status post IV albumin, creatinine improving. Monitor creatinine response to IV albumin given congestion on CXR, hold home diuretic until creatinine back to baseline, encourage p.o. intake. Avoid nephrotoxic's, labs in AM. If rt flank pain f/u w/ uro. Abnormal CTAP: enlarged retroperitoneal LN approx 1 cm. F/u imaging as OP. Other chronic medical conditions: Continue with/resume home meds as and when able. Chronic respiratory failure secondary to COPD on home O2 at night Chronic systolic/diastolic heart failure, mild congestion on admitting x-ray, patient intravascularly dry, c/t monitor volume status. furosemide on hold due to soft BP. DM 2 on oral meds, well-controlled as of recent hemoglobin A1c of 6.25 May 2024. SSI while in hospital. hypothyroidism, euthyroid as of recent TSH from 2 months ago ongoing tobacco abuse: Nicotine patch as needed DVT prophylaxis. Heparin subcu Full code Patient's son Dino was given a phone call 07/25 and updated regarding right renal stone and retroperitoneal lymph nodes and given general updates on the patient care and discussed plan of care. He voiced understanding. Text document was generated using [employer] voice recognition software. It may contain grammatical or spelling errors. Kindly contact undersigned for clarification of any documentation item in question. Admission and Anticipated Discharge Date Admission Date: July 24, 2024 Subjective Patient was seen and examined at bedside. Patient was lying in bed, on 2 L oxygen via nasal cannula, NAD, resting comfortably. Patient reports eating better, reports 1 loose stool last evening/but was not diarrhea per her, reports cough with yellow sputum, appears tired but feels a lot better. Patient denies chest pain or abdominal pain. Physical Exam 2 Physical Exam: GENERAL: NAD, on 2L NC O2, no respiratory distress SKIN: Pallor, warm HEENT: Pale palpebral conjunctivae, no ptosis, moist buccal mucosa, pharyngeal congestion improving NECK : Supple, no tenderness CHEST : Decreased breath sounds likely 2/2 poor effort, bb crackles, no tenderness HEART : RRR, no obvious murmurs ABDOMEN: Some distention, nontender EXTREMITIES : RLE splint, no other conspicuous deformities noted NEUROLOGIC : Coherent, no facial asymmetry, slightly hard of hearing, no other gross focality Results & Data Results & Data Vital Signs (Past 12 Hours) Vital Signs Temp Pulse Pulse Pulse Resp BP BP 07/26/24 12:00 36.8 C 61 19 112/62 07/26/24 09:00 07/26/24 08:00 36.8 C 65 20 110/68 07/26/24 07:21 64 Pulse Ox O2 Del Method O2 Flow Rate 07/26/24 12:00 92 Nasal Cannula 3 07/26/24 09:00 Nasal Cannula 2 07/26/24 08:00 93 Nasal Cannula 2 07/26/24 07:21
[2024-07-27 07:50] LABS: Hematocrit (blood only) 30.8 % (37.0-47.0); Hemoglobin 10.2 g/dl (12.0-16.0); Mean Corpuscular Hemoglobin 30.3 pg (25.0-34.0); Mean Corpuscular Hgb Conc 33.1 g/dL (32.0-36.0); Mean Corpuscular Volume 91.4 fL (80.0-100.0); Mean Platelet Volume 9.9 fL (9.4-12.4); Platelet Count 389 K/uL (130-400); RDW Coefficient of Variation 13.6 % (11.5-14.5); RDW Standard Deviation 45.5 fL (36.4-46.3); Red Blood Count 3.37 M/uL (4.20-5.40); White Blood Count 9.82 K/ul (4.8-10.8)
[2024-07-27 08:10] LABS: BUN Creatinine Ratio 16.2 (10-20); Calcium 9.2 mg/dl (8.6-10.3); Creatinine Clr Calc Pharmacy 38.5 ml/min; Magnesium 1.5 mg/dl (1.7-2.4); Phosphorus 2.5 mg/dl (2.5-4.9); Potassium 3.4 mmol/L (3.5-5.1)
[2024-07-27] MEDS: POTASSIUM CHLORIDE CRTAB 20 MEQ TABCR PO STA (09:18)
[2024-07-27] MEDS: MAGNESIUM SULFATE / D5W 1 GM/100 ML BAG IV SCH (09:18)
--- NOTE | 2024-07-27 13:14 | Hospitalist Progress Note ---
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 She is being managed for the following: Possible atypical pneumonia Did not meet SIRS criteria at presentation, no sepsis POA, admitting WBC and procalcitonin elevated. Follow admitting blood culture, sent sputum culture. Continue cefepime 07/25 --> rocephin 07/26 and doxycycline 07/25. c/w lactobacillus. Follow clinically. pt getting better, reports improvement in cough. Oropharyngeal thrush: Topical Rx for oropharyngeal thrush, monitor. Complicated UTI: Admitting UA suggestive of UTI, admitting urine culture positive for E. coli. Antibiotic as above. Recent diarrhea: Patient reports last diarrhea 2 days ago CREDIT ANALYST, c diff neg. Has improved per pt. Acute kidney injury over CKD stage III: Admitting creatinine of 1.81, baseline creatinine around 1.5. Admitting CTAP reviewed, no obstruction (non obstructive rt renal stone 4mm -- fu w/ URO as OP.). Status post IV fluid, creatinine resolved. Initiate home medications gradually as BP allows (likely resume lasix zan), follow renal functions daily. Abnormal CTAP: enlarged retroperitoneal LN approx 1 cm. F/u imaging as OP. Pt's son pito (over the phone) and pt herself were notified. Recent history of tibial plateau fracture x right and left ankle sprain Per outpatient orthopedic evaluation 06/19/2024, For RLE: patient can start to do active/active assisted ROM with her knee. PT can progress her ROM as tolerated. she can start to progress her weightbearing with her right knee starting with 25% weightbearing utilizing a walker. This can be increased weekly and can progress to full weightbearing as tolerated over the next 6 weeks. For LLE: Patient can transition out of the cam boot and into an ankle lacer. She is to have ankle lacer on during times of activity. If having a lot of pain ambulating during the day in ankle lacer, she will need to go back to the boot for a week or 2. Recommend RICE to left foot and ankle. She can work with PT to work on some strengthening and stabilizing exercises. Follow-up with orthopedics in 1 to 2 weeks time upon discharge. Other chronic medical conditions: Continue with/resume home meds as and when able. Chronic respiratory failure secondary to COPD on home O2 at night Chronic systolic/diastolic heart failure, mild congestion on admitting x-ray, patient intravascularly dry, c/t monitor volume status. furosemide on hold due to soft BP. DM 2 on oral meds, well-controlled as of recent hemoglobin A1c of 6.25 May 2024. SSI while in hospital. hypothyroidism, euthyroid as of recent TSH from 2 months ago ongoing tobacco abuse: Nicotine patch as needed DVT prophylaxis. Heparin subcu Full code Patient's son Pito was given a phone call 07/25 and updated regarding right renal stone and retroperitoneal lymph nodes and given general updates on the patient care and discussed plan of care. He voiced understanding. Text document was generated using tribr voice recognition software. It may contain grammatical or spelling errors. Kindly contact undersigned for clarification of any documentation item in question. Admission and Anticipated Discharge Date Admission Date: July 24, 2024 Subjective Patient was seen and examined at bedside. Patient was lying in bed, on 1 L oxygen via nasal cannula, NAD, resting comfortably. Patient reports eating better, reports 1 loose stool 2 d ago evening/but was not diarrhea per her, reports cough with yellow sputum, reports feeling a lot better. Patient denies chest pain or abdominal pain. Physical Exam Physical Exam: GENERAL: NAD, on 2L NC O2, no respiratory distress SKIN: Pallor, warm HEENT: Pale palpebral conjunctivae, no ptosis, moist buccal mucosa, pharyngeal congestion improving NECK : Supple, no tenderness CHEST : Decreased breath sounds likely 2/2 poor effort, bb crackles, no tenderness HEART : RRR, no obvious murmurs ABDOMEN: Some distention, nontender EXTREMITIES : RLE splint, no other conspicuous deformities noted NEUROLOGIC : Coherent, no facial asymmetry, slightly hard of hearing, no other gross focality Results & Data Results & Data Vital Signs (Past 12 Hours) Vital Signs Temp Pulse Pulse Pulse Resp BP Pulse Ox 07/27/24 10:59 36.7 C 65 17 120/66 93 07/27/24 07:45 07/27/24 07:13 36.8 C 66 17 126/72 95 07/27/24 07:00 64 07/27/24 03:01 36.7 C 71 18 122/64 94 O2 Del Method O2 Flow Rate 07/27/24 10:59 Nasal Cannula 07/27/24 07:45 Nasal Cannula 1 07/27/24 07:13 Nasal Cannula 07/27/24 07:00 07/27/24 03:01 Nasal Cannula 1
[2024-07-28 08:00] LABS: Hematocrit (blood only) 32.4 % (37.0-47.0); Hemoglobin 10.7 g/dl (12.0-16.0); Mean Corpuscular Hemoglobin 30.4 pg (25.0-34.0); Mean Platelet Volume 9.6 fL (9.4-12.4); Platelet Count 452 K/uL (130-400); RDW Coefficient of Variation 13.4 % (11.5-14.5); RDW Standard Deviation 45.8 fL (36.4-46.3); Red Blood Count 3.52 M/uL (4.20-5.40); White Blood Count 8.99 K/ul (4.8-10.8)
[2024-07-28 08:42] LABS: BUN Creatinine Ratio 17.8 (10-20); Calcium 8.9 mg/dl (8.6-10.3); Creatinine Clr Calc Pharmacy 43.5 ml/min; Magnesium 1.8 mg/dl (1.7-2.4); Phosphorus 2.8 mg/dl (2.5-4.9)
[2024-07-28 09:00] LABS: Potassium 3.9 mmol/L (3.5-5.1)
--- NOTE | 2024-07-28 15:58 | Hospitalist Progress Note ---
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 She is being managed for the following: Possible atypical pneumonia Did not meet SIRS criteria at presentation, no sepsis POA, admitting WBC and procalcitonin elevated. Follow admitting blood culture, sent sputum culture. Continue cefepime 07/25 --> rocephin 07/26 and doxycycline 07/25. c/w lactobacillus. Minimal cough but no other symptoms of fever and or chills or any shortness of breath or wheezing Oropharyngeal thrush: Topical Rx for oropharyngeal thrush, monitor. Complicated UTI: Admitting UA suggestive of UTI, admitting urine culture positive for E. coli. Antibiotic as above. 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 Has improved per pt. Acute kidney injury over CKD stage III: Admitting creatinine of 1.81, baseline creatinine around 1.5. Admitting CTAP reviewed, no obstruction (non obstructive rt renal stone 4mm -- fu w/ URO as OP.). Status post IV fluid, creatinine resolved. Initiate home medications gradually as BP allows (likely resume lasix zan), follow renal functions daily. Creatinine remains stable and improved at 1.29 Abnormal CTAP: Enlarged retroperitoneal LN approx 1 cm. F/u imaging as OP. Pt's son dino (over the phone) and pt herself were notified. Recent history of tibial plateau fracture x right and left ankle sprain Per outpatient orthopedic evaluation 06/19/2024, For RLE: patient can start to do active/active assisted ROM with her knee. PT can progress her ROM as tolerated. she can start to progress her weightbearing with her right knee starting with 25% weightbearing utilizing a walker. This can be increased weekly and can progress to full weightbearing as tolerated over the next 6 weeks. For LLE: Patient can transition out of the cam boot and into an ankle lacer. She is to have ankle lacer on during times of activity. If having a lot of pain ambulating during the day in ankle lacer, she will need to go back to the boot for a week or 2. Recommend RICE to left foot and ankle. She can work with PT to work on some strengthening and stabilizing exercises. Will continue with physical therapy Follow-up with orthopedics in 1 to 2 weeks time upon discharge. Other chronic medical conditions: Continue with/resume home meds as and when able. Chronic respiratory failure secondary to COPD on home O2 at night Chronic systolic/diastolic heart failure, mild congestion on admitting x-ray, patient intravascularly dry, c/t monitor volume status. furosemide on hold due to soft BP. DM 2 on oral meds, well-controlled as of recent hemoglobin A1c of 6.25 May 2024. SSI while in hospital. hypothyroidism, euthyroid as of recent TSH from 2 months ago ongoing tobacco abuse: Nicotine patch as needed DVT prophylaxis. Heparin subcu Full code Patient's son Dino was given a phone call 07/25 and updated regarding right renal stone and retroperitoneal lymph nodes and given general updates on the patient care and discussed plan of care. He voiced understanding. Text document was generated using [employer] voice recognition software. It may contain grammatical or spelling errors. Kindly contact undersigned for clarification of any documentation item in question. Admission and Anticipated Discharge Date Admission Date: July 24, 2024 Subjective 07/28/2024 The patient was seen and examined in telemetry unit She has been complaining of bilateral leg pain and back pain She refused to have physical therapy this morning Denies any other acute symptoms and denies any cardiac symptoms Review of Systems Review of Systems: All systems reviewed and are unremarkable except as noted below Physical Exam Physical Exam: Lying in bed with nonspecific complaints Constitutional: well developed, well nourished and + ill appearing Eyes: PERRL, conjunctivae normal, anicteric sclerae ENMT: external ear and nose normal, oropharynx normal Neck: trachea midline, no thyromegaly Respiratory: no respiratory distress Auscultation: + lungs not clear to auscultation Cardiovascular: Rate/Rhythm: regular rate and regular rhythm; not tachycardic Heart Sounds: normal S1 and normal S2; no murmur Extremities: no edema Gastrointestinal (Abdomen): Inspection/Auscultation: normal bowel sounds; abdomen not distended Percussion/Palpation: abdomen soft; abdomen nontender Musculoskeletal: Minimal pain at the back and does not have any radiation on examination Has a leg brace on the right side but movement of the joints did not show any acute arthritis Neurologic: normal touch/pain/proprioception and moves all extremities; no focal motor deficits General Awake Lymphatic: no cervical or axillary lymphadenopathy Results & Data Results & Data Vital Signs (Past 12 Hours) Vital Signs Temp Pulse Pulse Resp BP Pulse Ox O2 Del Method 07/28/24 15:24 36.4 C L 71 16 120/72 90 Room Air 07/28/24 14:39 78 07/28/24 10:50 36.6 C 68 17 119/67 90 Room Air 07/28/24 08:00 Nasal Cannula 07/28/24 08:00 60 07/28/24 07:12 36.6 C 64 17 139/71 91 Room Air O2 Flow Rate 07/28/24 15:24 07/28/24 14:39 07/28/24 10:50 07/28/24 08:00 1 07/28/24 08:00 07/28/24 07:12 Laboratory Results Short CBC 07/28/24 Range/Units 07:32 WBC 8.99 (4.8-10.8) K/ul Hgb 10.7 L (12.0-16.0) g/dl Hct 32.4 L (37.0-47.0) % Plt Count 452 H (130-400) K/uL BMP 07/28/24 07:32 Sodium 138 Potassium 3.9 Chloride 109 H Carbon Dioxide 21 BUN 23 Creatinine 1.29 H Glucose 98 Calcium 8.9 Medications Administered Current Inpatient Medications Acetaminophen (Acetaminophen 325 Mg Tab) 650 mg PO QID PRN PRN Reason: pain/fever Stop: 08/23/24 20:26 Albuterol (Albut/Ipratrop 3mg/0.5mg Neb 3 Ml Vial) 3 ml NEB Q2H PRN; Protocol PRN Reason: sob wheeze Stop: 08/24/24 03:40 Alendronate Sodium (Alendronate Sodium 70 Mg Tab) 70 mg PO Tu@0730 [facility] Stop: 08/24/24 07:29 Last Admin: 07/25/24 07:30 Dose: 70 mg Aspirin (Aspirin 81 Mg Ectab) 81 mg PO QAM [facility]INA Stop: 08/24/24 08:59 Last Admin: 07/28/24 09:03 Dose: 81 mg Atorvastatin Calcium (Atorvastatin 40 Mg Tab) 40 mg PO HS [facility]RISTINA Stop: 08/24/24 20:59 Last Admin: 07/27/24 20:53 Dose: 40 mg Azelastine HCl (Azelastine Hcl 0.1% Nasal 200 Sprays/27,400 Mcg Btl) 2 sprays NA BID [facility]STINA Stop: 08/24/24 08:59 Last Admin: 07/28/24 09:04 Dose: 2 sprays Benzonatate (Benzonatate 100 Mg Capsule) 100 mg PO TID PRN PRN Reason: Cough Stop: 08/24/24 03:38 Last Admin: 07/26/24 11:35 Dose: 100 mg Calcium Carbonate (Calcium Carbonate 500 Mg Chewable Tab) 500 mg PO Q4H PRN PRN Reason: Gi Upset Stop: 08/23/24 21:57 Cetirizine HCl (Cetirizine Hcl 10 Mg Tablet) 10 mg PO PM [facility]STINA Stop: 08/24/24 20:59 Last Admin: 07/27/24 20:53 Dose: 10 mg Clotrimazole (Clotrimazole 10 Mg Melony) 10 mg BUCCAL [id number] [facility]STINA Stop: 08/03/24 22:59 Last Admin: 07/28/24 15:12 Dose: 10 mg Dextrose (Dextrose 50% 50 Ml Syringe) 25 - 50 ml IV UD PRN; Protocol PRN Reason: Hypoglycemia Protocol Stop: 08/23/24 21:31 Doxycycline Hyclate (Doxycycline Hyclate 100 Mg Cap) 100 mg PO BID [facility] Stop: 07/30/24 08:59 Last Admin: 07/28/24 09:03 Dose: 100 mg Ergocalciferol (Ergocalciferol 1250 Mcg (50,000 Units) Cap) 50,000 mcg PO Cooney@0900 [facility] Stop: 08/29/24 08:59 Fluticasone Furoate (Fluticasone Furoate 200mcg 14 Puffs/Inhaler) 1 puffs INH DAILY [facility]STINA Stop: 08/24/24 08:59 Last Admin: 07/28/24 09:04 Dose: 1 puffs Gabapentin (Gabapentin 100 Mg Cap) 200 mg PO TID [facility]STINA Stop: 08/24/24 03:44 Last Admin: 07/28/24 15:11 Dose: 200 mg Glucagon (Glucagon For Inj 1 Mg Vial) 1 mg SQ UD PRN; Protocol PRN Reason: Hypoglycemia Protocol Stop: 08/23/24 21:31 Glucose (Glucose 40% Gel 15 Gm Tube) 15 - 30 gm PO UD PRN; Protocol PRN Reason: Hypoglycemia Protocol Stop: 08/23/24 21:31 Glucose (Glucose 10 Tab/Tube) 4 - 8 tab PO UD PRN; Protocol PRN Reason: Hypoglycemia Protocol Stop: 08/23/24 21:31 Heparin Sodium (Porcine) (Heparin Sod 5,000 Unit/0.5 Ml Vial) 5,000 units SQ Q8H [facility]STINA Stop: 08/23/24 21:59 Last Admin: 07/28/24 15:10 Dose: 5,000 units Ceftriaxone Sodium (Rocephin) 2,000 mg in 50 mls @ 100 mls/hr IV Q24H [facility]STINA Stop: 08/05/24 03:59 Last Infusion: 07/28/24 05:07 Dose: Infused Insulin Aspart (Insulin Aspart Per Unit Charge) 0 units SC ACHS [facility]RISTINA Stop: 08/23/24 21:31 Last Admin: 07/28/24 12:29 Dose: 2 units Lactobacillus Acidophilus (Advanced Probiotic 625 Mg Capsule) 1,250 mg PO DAILY [facility]STINA Stop: 08/24/24 09:14 Last Admin: 07/28/24 09:03 Dose: 1,250 mg Levalbuterol HCl (Levalbuterol 1.25 Mg/3 Ml Neb) 1.25 mg INH QID PRN PRN Reason: Shortness Of Breath Or Wheezing Stop: 08/23/24 21:45 Levothyroxine Sodium (Levothyroxine Sodium 75 Mcg Tablet) 75 mcg PO DAILYBB CHRISTINA Stop: 08/24/24 06:29 Last Admin: 07/28/24 05:13 Dose: 75 mcg Miscellaneous (Carbohydrates For Hypoglycemia ) 15 - 30 gm PO UD PRN PRN Reason: Hypoglycemia Protocol Stop: 08/23/24 21:31 Montelukast Sodium (Montelukast Sodium 10 Mg Tablet) 10 mg PO HS [facility] Stop: 08/24/24 20:59 Last Admin: 07/27/24 20:53 Dose: 10 mg Nystatin (Nystatin Powder 15gm Btl) 1 appln EXT BID [facility]STINA Stop: 08/23/24 23:49 Last Admin: 07/28/24 09:05 Dose: 1 appln Oxycodone HCl (Oxycodone Hcl Ir 5 Mg Tab (Immediate Release)) 5 mg PO Q4H PRN PRN Reason: Pain Stop: 08/07/24 20:26 Last Admin: 07/28/24 12:16 Dose: 5 mg Pantoprazole Sodium (Pantoprazole 40 Mg Tab) 40 mg PO QAM [facility] Stop: 08/24/24 08:59 Last Admin: 07/28/24 09:03 Dose: 40 mg Paroxetine HCl (Paroxetine Hcl 20 Mg Tab) 40 mg PO QAM [facility] Stop: 08/24/24 08:59 Last Admin: 07/28/24 09:05 Dose: 40 mg Phenol (Chloraseptic (Phenol) 1.4% Soln 180 Ml Btl) 1 sprays MT Q2H PRN PRN Reason: oral cavity/oopharyngeal pain Stop: 08/23/24 20:41 Ropinirole HCl (Ropinirole Hcl 0.25 Mg Tablet) 0.25 mg PO HS [facility] Stop: 08/23/24 21:59 Last Admin: 07/27/24 20:53 Dose: 0.25 mg Umeclidinium/Vilanterol (Umeclidinium/Vilanterol 62.5/25mcg 7 Puffs/Inhaler) 1 puffs INH DAILY [facility]INA Stop: 08/24/24 08:59 Last Admin: 07/28/24 09:05 Dose: 1 puffs
--- NOTE | 2024-07-29 15:07 | Hospitalist Progress Note ---
Date of Service July 29, 2024 Assessment & Plan (1) Hypotension: Plan: 74-year-old lady with PMH of chronic respiratory failure 2/2 COPD on home O2 at night (2 L), chronic systolic/diastolic HF [EF of 55 to 60% TTE 2023], HTN, GERD, T2DM on oral meds, CKD [baseline creatinine of 1.4], hypothyroidism, mood disorder, right tibial fracture, ongoing tobacco abuse, recent discontinuation of atenolol and lisinopril due to hypotension issues presented with complaint of not feeling well since last 4 days ago [employer], reports occasional cough with yellow sputum, sore throat. She is being managed for the following: Possible atypical pneumonia Did not meet SIRS criteria at presentation, no sepsis POA, admitting WBC and procalcitonin elevated. Follow admitting blood culture, sent sputum culture. Continue cefepime 07/25 --> rocephin 07/26 and doxycycline 07/25. c/w lactobacillus. Minimal cough but no other symptoms of fever and or chills or any shortness of breath or wheezing Denies any respiratory symptoms and cough is minimal Oropharyngeal thrush: Topical Rx for oropharyngeal thrush, monitor Denies any sore throat and/or dysphagia Complicated UTI: Admitting UA suggestive of UTI, admitting urine culture positive for E. coli. Antibiotic as above. Continue ceftriaxone for now Will finish the course of ceftriaxone Recent diarrhea: Patient reports last diarrhea 2 days ago [employer], c diff neg. Has improved per pt. Acute kidney injury over CKD stage III: Admitting creatinine of 1.81, baseline creatinine around 1.5. Admitting CTAP reviewed, no obstruction (non obstructive rt renal stone 4mm -- fu w/ URO as OP.). Status post IV fluid, creatinine resolved. Initiate home medications gradually as BP allows (likely resume lasix zan), follow renal functions daily. Creatinine remains stable and improved at 1.29 Abnormal CTAP: Enlarged retroperitoneal LN approx 1 cm. F/u imaging as OP. Pt's son dino (over the phone) and pt herself were notified. Recent history of tibial plateau fracture x right and left ankle sprain Per outpatient orthopedic evaluation 06/19/2024, For RLE: patient can start to do active/active assisted ROM with her knee. PT can progress her ROM as tolerated. she can start to progress her weightbearing with her right knee starting with 25% weightbearing utilizing a walker. This can be increased weekly and can progress to full weightbearing as tolerated over the next 6 weeks. For LLE: Patient can transition out of the cam boot and into an ankle lacer. She is to have ankle lacer on during times of activity. If having a lot of pain ambulating during the day in ankle lacer, she will need to go back to the boot for a week or 2. Recommend RICE to left foot and ankle. She can work with PT to work on some strengthening and stabilizing exercises. Will continue with physical therapy- strongly advised to participate in physical therapy Likely discharge on Wednesday Follow-up with orthopedics in 1 to 2 weeks time upon discharge. Other chronic medical conditions: Continue with/resume home meds as and when able. Chronic respiratory failure secondary to COPD on home O2 at night Chronic systolic/diastolic heart failure, mild congestion on admitting x-ray, patient intravascularly dry, c/t monitor volume status. furosemide on hold due to soft BP. DM 2 on oral meds, well-controlled as of recent hemoglobin A1c of 6.25 May 2024. SSI while in hospital. hypothyroidism, euthyroid as of recent TSH from 2 months ago ongoing tobacco abuse: Nicotine patch as needed DVT prophylaxis. Heparin subcu Full code Patient's son Dino was given a phone call 07/25 and updated regarding right renal stone and retroperitoneal lymph nodes and given general updates on the patient care and discussed plan of care. He voiced understanding. Text document was generated using [employer] voice recognition software. It may contain grammatical or spelling errors. Kindly contact undersigned for clarification of any documentation item in question. Admission and Anticipated Discharge Date Admission Date: July 24, 2024 Subjective 07/28/2024 The patient was seen and examined in telemetry unit She has been complaining of bilateral leg pain and back pain She refused to have physical therapy this morning Denies any other acute symptoms and denies any cardiac symptoms 07/29/2024 The patient was seen and examined in telemetry unit She remains stable but has not had any physical therapy yet Her pain in the legs is controlled Review of Systems Review of Systems: All systems reviewed and are unremarkable except as noted below Physical Exam Physical Exam: Lying in bed with nonspecific complaints Constitutional: well developed, well nourished and + ill appearing Eyes: PERRL, conjunctivae normal, anicteric sclerae ENMT: external ear and nose normal, oropharynx normal Neck: trachea midline, no thyromegaly Respiratory: no respiratory distress Auscultation: + lungs not clear to auscultation Cardiovascular: Rate/Rhythm: regular rate and regular rhythm; not tachycardic Heart Sounds: normal S1 and normal S2; no murmur Extremities: no edema Gastrointestinal (Abdomen): Inspection/Auscultation: normal bowel sounds; abdomen not distended Percussion/Palpation: abdomen soft; abdomen nontender Neurologic: normal touch/pain/proprioception and moves all extremities; no focal motor deficits Lymphatic: no cervical or axillary lymphadenopathy Results & Data Results & Data Vital Signs (Past 12 Hours) Vital Signs Temp Pulse Resp BP Pulse Ox O2 Del Method O2 Flow Rate 07/29/24 13:21 37.2 C 56 L 18 103/65 90 Nasal Cannula 3 07/29/24 13:16 36.6 C 115 H 19 108/66 90 Room Air 07/29/24 08:54 36.3 C L 79 18 118/73 92 Room Air 07/29/24 08:00 Room Air 07/29/24 03:13 36.6 C 69 18 131/74 91 Room Air Medications Administered Current Inpatient Medications Acetaminophen (Acetaminophen 325 Mg Tab) 650 mg PO QID PRN PRN Reason: pain/fever Stop: 08/23/24 20:26 Albuterol (Albut/Ipratrop 3mg/0.5mg Neb 3 Ml Vial) 3 ml NEB Q2H PRN; Protocol PRN Reason: sob wheeze Stop: 08/24/24 03:40 Alendronate Sodium (Alendronate Sodium 70 Mg Tab) 70 mg PO Tu@0730 [facility] Stop: 08/24/24 07:29 Last Admin: 07/25/24 07:30 Dose: 70 mg Aspirin (Aspirin 81 Mg Ectab) 81 mg PO QAM [facility] Stop: 08/24/24 08:59 Last Admin: 07/29/24 08:36 Dose: 81 mg Atorvastatin Calcium (Atorvastatin 40 Mg Tab) 40 mg PO HS [facility] Stop: 08/24/24 20:59 Last Admin: 07/28/24 20:17 Dose: 40 mg Azelastine HCl (Azelastine Hcl 0.1% Nasal 200 Sprays/27,400 Mcg Btl) 2 sprays NA BID [facility] Stop: 08/24/24 08:59 Last Admin: 07/29/24 08:36 Dose: 2 sprays Benzonatate (Benzonatate 100 Mg Capsule) 100 mg PO TID PRN PRN Reason: Cough Stop: 08/24/24 03:38 Last Admin: 07/26/24 11:35 Dose: 100 mg Calcium Carbonate (Calcium Carbonate 500 Mg Chewable Tab) 500 mg PO Q4H PRN PRN Reason: Gi Upset Stop: 08/23/24 21:57 Cetirizine HCl (Cetirizine Hcl 10 Mg Tablet) 10 mg PO PM [facility] Stop: 08/24/24 20:59 Last Admin: 07/28/24 20:17 Dose: 10 mg Clotrimazole (Clotrimazole 10 Mg Melony) 10 mg BUCCAL [id number] [facility] Stop: 08/03/24 22:59 Last Admin: 07/29/24 14:33 Dose: 10 mg Dextrose (Dextrose 50% 50 Ml Syringe) 25 - 50 ml IV UD PRN; Protocol PRN Reason: Hypoglycemia Protocol Stop: 08/23/24 21:31 Doxycycline Hyclate (Doxycycline Hyclate 100 Mg Cap) 100 mg PO BID [facility] Stop: 07/30/24 08:59 Last Admin: 07/29/24 08:36 Dose: 100 mg Ergocalciferol (Ergocalciferol 1250 Mcg (50,000 Units) Cap) 1,250 mcg PO Cooney@0900 [facility] Stop: 08/29/24 08:59 Fluticasone Furoate (Fluticasone Furoate 200mcg 14 Puffs/Inhaler) 1 puffs INH DAILY [facility] Stop: 08/24/24 08:59 Last Admin: 07/29/24 08:37 Dose: 1 puffs Gabapentin (Gabapentin 100 Mg Cap) 200 mg PO TID [facility] Stop: 08/24/24 03:44 Last Admin: 07/29/24 14:33 Dose: 200 mg Glucagon (Glucagon For Inj 1 Mg Vial) 1 mg SQ UD PRN; Protocol PRN Reason: Hypoglycemia Protocol Stop: 08/23/24 21:31 Glucose (Glucose 40% Gel 15 Gm Tube) 15 - 30 gm PO UD PRN; Protocol PRN Reason: Hypoglycemia Protocol Stop: 08/23/24 21:31 Glucose (Glucose 10 Tab/Tube) 4 - 8 tab PO UD PRN; Protocol PRN Reason: Hypoglycemia Protocol Stop: 08/23/24 21:31 Heparin Sodium (Porcine) (Heparin Sod 5,000 Unit/0.5 Ml Vial) 5,000 units SQ Q8H [facility] Stop: 08/23/24 21:59 Last Admin: 07/29/24 14:33 Dose: 5,000 units Ceftriaxone Sodium (Rocephin) 2,000 mg in 50 mls @ 100 mls/hr IV Q24H [facility] Stop: 08/05/24 03:59 Last Infusion: 07/29/24 05:54 Dose: Infused Insulin Aspart (Insulin Aspart Per Unit Charge) 0 units SC ACHS [facility] Stop: 08/23/24 21:31 Last Admin: 07/29/24 12:37 Dose: 3 units Lactobacillus Acidophilus (Advanced Probiotic 625 Mg Capsule) 1,250 mg PO DAILY [facility] Stop: 08/24/24 09:14 Last Admin: 07/29/24 08:36 Dose: 1,250 mg Levalbuterol HCl (Levalbuterol 1.25 Mg/3 Ml Neb) 1.25 mg INH QID PRN PRN Reason: Shortness Of Breath Or Wheezing Stop: 08/23/24 21:45 Levothyroxine Sodium (Levothyroxine Sodium 75 Mcg Tablet) 75 mcg PO DAILYBB [facility] Stop: 08/24/24 06:29 Last Admin: 07/29/24 05:56 Dose: 75 mcg Miscellaneous (Carbohydrates For Hypoglycemia ) 15 - 30 gm PO UD PRN PRN Reason: Hypoglycemia Protocol Stop: 08/23/24 21:31 Montelukast Sodium (Montelukast Sodium 10 Mg Tablet) 10 mg PO HS [facility] Stop: 08/24/24 20:59 Last Admin: 07/28/24 20:17 Dose: 10 mg Nystatin (Nystatin Powder 15gm Btl) 1 appln EXT BID [facility] Stop: 08/23/24 23:49 Last Admin: 07/29/24 08:35 Dose: 1 appln Oxycodone HCl (Oxycodone Hcl Ir 5 Mg Tab (Immediate Release)) 5 mg PO Q4H PRN PRN Reason: Pain Stop: 08/07/24 20:26 Last Admin: 07/28/24 12:16 Dose: 5 mg Pantoprazole Sodium (Pantoprazole 40 Mg Tab) 40 mg PO QAM [facility] Stop: 08/24/24 08:59 Last Admin: 07/29/24 08:36 Dose: 40 mg Paroxetine HCl (Paroxetine Hcl 20 Mg Tab) 40 mg PO QAM [facility] Stop: 08/24/24 08:59 Last Admin: 07/29/24 08:35 Dose: 40 mg Phenol (Chloraseptic (Phenol) 1.4% Soln 180 Ml Btl) 1 sprays MT Q2H PRN PRN Reason: oral cavity/oopharyngeal pain Stop: 08/23/24 20:41 Ropinirole HCl (Ropinirole Hcl 0.25 Mg Tablet) 0.25 mg PO HS [facility] Stop: 08/23/24 21:59 Last Admin: 07/28/24 20:18 Dose: 0.25 mg Umeclidinium/Vilanterol (Umeclidinium/Vilanterol 62.5/25mcg 7 Puffs/Inhaler) 1 puffs INH DAILY [facility] Stop: 08/24/24 08:59 Last Admin: 07/29/24 08:37 Dose: 1 puffs
[2024-07-30] MEDS: ERGOCALCIFEROL 1250 MCG (50,000 UNITS) CAP PO SCH (08:39)
[2024-07-30] MEDS ORDERED: ERGOCALCIFEROL 1250 MCG (50,000 UNITS) CAP PO SCH (09:00)
--- NOTE | 2024-07-30 13:39 | Hospitalist Progress Note ---
Date of Service July 30, 2024 Assessment & Plan (1) Hypotension: Plan: 74-year-old lady with PMH of chronic respiratory failure 2/2 COPD on home O2 at night (2 L), chronic systolic/diastolic HF [EF of 55 to 60% TTE 2023], HTN, GERD, T2DM on oral meds, CKD [baseline creatinine of 1.4], hypothyroidism, mood disorder, right tibial fracture, ongoing tobacco abuse, recent discontinuation of atenolol and lisinopril due to hypotension issues presented with complaint of not feeling well since last 4 days ago [employer], reports occasional cough with yellow sputum, sore throat. She is being managed for the following: Possible atypical pneumonia Did not meet SIRS criteria at presentation, no sepsis POA, admitting WBC and procalcitonin elevated. Follow admitting blood culture, sent sputum culture. Continue cefepime 07/25 --> rocephin 07/26 and doxycycline 07/25. c/w lactobacillus. Minimal cough but no other symptoms of fever and or chills or any shortness of breath or wheezing Denies any respiratory symptoms and cough is minimal Will finish the course of antibiotic and the patient remains stable without any cough and/or shortness of breath Oropharyngeal thrush: Topical Rx for oropharyngeal thrush, monitor Denies any sore throat and/or dysphagia Complicated UTI: Admitting UA suggestive of UTI, admitting urine culture positive for E. coli. Antibiotic as above. Continue ceftriaxone for now Will finish the course of ceftriaxone Denies any urinary symptoms Recent diarrhea: Patient reports last diarrhea 2 days ago [employer], c diff neg. Has improved per pt. Acute kidney injury over CKD stage III: Admitting creatinine of 1.81, baseline creatinine around 1.5. Admitting CTAP reviewed, no obstruction (non obstructive rt renal stone 4mm -- fu w/ URO as OP.). Status post IV fluid, creatinine resolved. Initiate home medications gradually as BP allows (likely resume lasix zan), follow renal functions daily. Creatinine remains stable and improved at 1.29 Will monitor PRP Abnormal CTAP: Enlarged retroperitoneal LN approx 1 cm. F/u imaging as OP. Pt's son dino (over the phone) and pt herself were notified. Recent history of tibial plateau fracture x right and left ankle sprain Per outpatient orthopedic evaluation 06/19/2024, For RLE: patient can start to do active/active assisted ROM with her knee. PT can progress her ROM as tolerated. she can start to progress her weightbearing with her right knee starting with 25% weightbearing utilizing a walker. This can be increased weekly and can progress to full weightbearing as tolerated over the next 6 weeks. For LLE: Patient can transition out of the cam boot and into an ankle lacer. She is to have ankle lacer on during times of activity. If having a lot of pain ambulating during the day in ankle lacer, she will need to go back to the boot for a week or 2. Recommend RICE to left foot and ankle. She can work with PT to work on some strengthening and stabilizing exercises. Will continue with physical therapy- strongly advised to participate in physical therapy Likely discharge on Wednesday Follow-up with orthopedics in 1 to 2 weeks time upon discharge. Other chronic medical conditions: Continue with/resume home meds as and when able. Chronic respiratory failure secondary to COPD on home O2 at night Chronic systolic/diastolic heart failure, mild congestion on admitting x-ray, patient intravascularly dry, c/t monitor volume status. furosemide on hold due to soft BP. DM 2 on oral meds, well-controlled as of recent hemoglobin A1c of 6.25 May 2024. SSI while in hospital. hypothyroidism, euthyroid as of recent TSH from 2 months ago ongoing tobacco abuse: Nicotine patch as needed DVT prophylaxis. Heparin subcu Full code Patient's son Dino was given a phone call 07/25 and updated regarding right renal stone and retroperitoneal lymph nodes and given general updates on the patient care and discussed plan of care. He voiced understanding. Text document was generated using [employer] voice recognition software. It may contain grammatical or spelling errors. Kindly contact undersigned for clarification of any documentation item in question. Admission and Anticipated Discharge Date Admission Date: July 24, 2024 Subjective 07/28/2024 The patient was seen and examined in telemetry unit She has been complaining of bilateral leg pain and back pain She refused to have physical therapy this morning Denies any other acute symptoms and denies any cardiac symptoms 07/29/2024 The patient was seen and examined in telemetry unit She remains stable but has not had any physical therapy yet Her pain in the legs is controlled 07/30/2024 The patient was seen and examined in medical floor She has been much better today Complains pain in the right renal angle area Has not had any more physical therapy Strongly advised to participate in physical therapy before discharge tomorrow Review of Systems Review of Systems: All systems reviewed and are unremarkable except as noted below Physical Exam Physical Exam: Lying in bed with nonspecific complaints Constitutional: well developed, well nourished and + ill appearing Eyes: PERRL, conjunctivae normal, anicteric sclerae ENMT: external ear and nose normal, oropharynx normal Neck: trachea midline, no thyromegaly Respiratory: no respiratory distress Auscultation: + lungs not clear to auscultation Cardiovascular: Rate/Rhythm: regular rate and regular rhythm; not tachycardic Heart Sounds: normal S1 and normal S2; no murmur Extremities: no edema Gastrointestinal (Abdomen): Inspection/Auscultation: normal bowel sounds; abdomen not distended Percussion/Palpation: abdomen soft; abdomen nontender Musculoskeletal: No acute arthritis involving any of the joint Neurologic: normal touch/pain/proprioception and moves all extremities; no focal motor deficits Lymphatic: no cervical or axillary lymphadenopathy Results & Data Results & Data Vital Signs (Past 12 Hours) Vital Signs Temp Pulse Resp BP Pulse Ox O2 Del Method 07/30/24 07:46 36.3 C L 52 L 16 143/67 H 91 Room Air 07/30/24 07:30 Room Air Medications Administered Current Inpatient Medications Acetaminophen (Acetaminophen 325 Mg Tab) 650 mg PO QID PRN PRN Reason: pain/fever Stop: 08/23/24 20:26 Albuterol (Albut/Ipratrop 3mg/0.5mg Neb 3 Ml Vial) 3 ml NEB Q2H PRN; Protocol PRN Reason: sob wheeze Stop: 08/24/24 03:40 Alendronate Sodium (Alendronate Sodium 70 Mg Tab) 70 mg PO Tu@0730 [facility] Stop: 08/24/24 07:29 Last Admin: 07/25/24 07:30 Dose: 70 mg Aspirin (Aspirin 81 Mg Ectab) 81 mg PO QAM [facility] Stop: 08/24/24 08:59 Last Admin: 07/30/24 08:40 Dose: 81 mg Atorvastatin Calcium (Atorvastatin 40 Mg Tab) 40 mg PO HS [facility] Stop: 08/24/24 20:59 Last Admin: 07/29/24 20:44 Dose: 40 mg Azelastine HCl (Azelastine Hcl 0.1% Nasal 200 Sprays/27,400 Mcg Btl) 2 sprays NA BID [facility] Stop: 08/24/24 08:59 Last Admin: 07/30/24 08:39 Dose: 2 sprays Benzonatate (Benzonatate 100 Mg Capsule) 100 mg PO TID PRN PRN Reason: Cough Stop: 08/24/24 03:38 Last Admin: 07/26/24 11:35 Dose: 100 mg Calcium Carbonate (Calcium Carbonate 500 Mg Chewable Tab) 500 mg PO Q4H PRN PRN Reason: Gi Upset Stop: 08/23/24 21:57 Cetirizine HCl (Cetirizine Hcl 10 Mg Tablet) 10 mg PO PM [facility] Stop: 08/24/24 20:59 Last Admin: 07/29/24 20:46 Dose: 10 mg Clotrimazole (Clotrimazole 10 Mg Melony) 10 mg BUCCAL [id number] [facility] Stop: 08/03/24 22:59 Last Admin: 07/30/24 11:36 Dose: 10 mg Dextrose (Dextrose 50% 50 Ml Syringe) 25 - 50 ml IV UD PRN; Protocol PRN Reason: Hypoglycemia Protocol Stop: 08/23/24 21:31 Ergocalciferol (Ergocalciferol 1250 Mcg (50,000 Units) Cap) 1,250 mcg PO Cooney@0900 [facility] Stop: 08/29/24 08:59 Last Admin: 07/30/24 08:39 Dose: 1,250 mcg Fluticasone Furoate (Fluticasone Furoate 200mcg 14 Puffs/Inhaler) 1 puffs INH DAILY [facility] Stop: 08/24/24 08:59 Last Admin: 07/30/24 08:38 Dose: 1 puffs Gabapentin (Gabapentin 100 Mg Cap) 200 mg PO TID [facility] Stop: 08/24/24 03:44 Last Admin: 07/30/24 08:40 Dose: 200 mg Glucagon (Glucagon For Inj 1 Mg Vial) 1 mg SQ UD PRN; Protocol PRN Reason: Hypoglycemia Protocol Stop: 08/23/24 21:31 Glucose (Glucose 40% Gel 15 Gm Tube) 15 - 30 gm PO UD PRN; Protocol PRN Reason: Hypoglycemia Protocol Stop: 08/23/24 21:31 Glucose (Glucose 10 Tab/Tube) 4 - 8 tab PO UD PRN; Protocol PRN Reason: Hypoglycemia Protocol Stop: 08/23/24 21:31 Heparin Sodium (Porcine) (Heparin Sod 5,000 Unit/0.5 Ml Vial) 5,000 units SQ Q8H [facility] Stop: 08/23/24 21:59 Last Admin: 07/30/24 05:53 Dose: 5,000 units Ceftriaxone Sodium (Rocephin) 2,000 mg in 50 mls @ 100 mls/hr IV Q24H [facility] Stop: 08/05/24 03:59 Last Infusion: 07/30/24 04:46 Dose: Infused Insulin Aspart (Insulin Aspart Per Unit Charge) 0 units SC ACHS [facility] Stop: 08/23/24 21:31 Last Admin: 07/30/24 12:30 Dose: 4 units Lactobacillus Acidophilus (Advanced Probiotic 625 Mg Capsule) 1,250 mg PO DAILY [facility] Stop: 08/24/24 09:14 Last Admin: 07/30/24 08:40 Dose: 1,250 mg Levalbuterol HCl (Levalbuterol 1.25 Mg/3 Ml Neb) 1.25 mg INH QID PRN PRN Reason: Shortness Of Breath Or Wheezing Stop: 08/23/24 21:45 Levothyroxine Sodium (Levothyroxine Sodium 75 Mcg Tablet) 75 mcg PO DAILYBB [facility] Stop: 08/24/24 06:29 Last Admin: 07/30/24 05:54 Dose: 75 mcg Miscellaneous (Carbohydrates For Hypoglycemia ) 15 - 30 gm PO UD PRN PRN Reason: Hypoglycemia Protocol Stop: 08/23/24 21:31 Montelukast Sodium (Montelukast Sodium 10 Mg Tablet) 10 mg PO HS [facility] Stop: 08/24/24 20:59 Last Admin: 07/29/24 20:45 Dose: 10 mg Nystatin (Nystatin Powder 15gm Btl) 1 appln EXT BID [facility] Stop: 08/23/24 23:49 Last Admin: 07/30/24 08:41 Dose: 1 appln Oxycodone HCl (Oxycodone Hcl Ir 5 Mg Tab (Immediate Release)) 5 mg PO Q4H PRN PRN Reason: Pain Stop: 08/07/24 20:26 Last Admin: 07/28/24 12:16 Dose: 5 mg Pantoprazole Sodium (Pantoprazole 40 Mg Tab) 40 mg PO QAM [facility] Stop: 08/24/24 08:59 Last Admin: 07/30/24 08:40 Dose: 40 mg Paroxetine HCl (Paroxetine Hcl 20 Mg Tab) 40 mg PO QAM [facility] Stop: 08/24/24 08:59 Last Admin: 07/30/24 08:41 Dose: 40 mg Phenol (Chloraseptic (Phenol) 1.4% Soln 180 Ml Btl) 1 sprays MT Q2H PRN PRN Reason: oral cavity/oopharyngeal pain Stop: 08/23/24 20:41 Ropinirole HCl (Ropinirole Hcl 0.25 Mg Tablet) 0.25 mg PO HS [facility] Stop: 08/23/24 21:59 Last Admin: 07/29/24 20:46 Dose: 0.25 mg Umeclidinium/Vilanterol (Umeclidinium/Vilanterol 62.5/25mcg 7 Puffs/Inhaler) 1 puffs INH DAILY [facility] Stop: 08/24/24 08:59 Last Admin: 07/30/24 08:38 Dose: 1 puffs
[2024-07-30 17:16] LABS: Adenovirus F 40/41 PCR Not Detected (NotDetected); Astrovirus PCR Not Detected (NotDetected); Campylobacter PCR Not Detected (NotDetected); Cryptosporidium PCR Not Detected (NotDetected); Cyclospora cayetanensis PCR Not Detected (NotDetected); Entamoeba histolytica PCR Not Detected (NotDetected); Enteroaggregative E.coli(EAEC) Not Detected (NotDetected); Enteropathogenic E.coli (EPEC) Not Detected (NotDetected); Enterotoxigenic E.coli (ETEC) Not Detected (NotDetected); Giardia lamblia PCR Not Detected (NotDetected); Norovirus GI/GII PCR Not Detected (NotDetected); Plesiomonas shigelloides PCR Not Detected (NotDetected); Rotavirus A PCR Not Detected (NotDetected); Salmonella PCR Not Detected (NotDetected); Sapovirus PCR Not Detected (NotDetected); Shiga-like Toxin E.coli (STEC) Not Detected (NotDetected); Shigella/Enteroinvasive E.coli Not Detected (NotDetected); Vibrio cholerae PCR Not Detected (NotDetected); Vibrio species PCR Not Detected (NotDetected); Yersinia enterocolitica PCR Not Detected (NotDetected)
[2024-07-30] MEDS: CHLORASEPTIC (PHENOL) 1.4% SOLN 180 ML BTL MT PRN (20:04)
[2024-07-31 07:20] LABS: Basophils # (auto) 0.07 K/uL (0.00-0.20); Basophils % (auto) 0.6 %; Eosinophils # (auto) 0.22 K/uL (0.00-0.50); Eosinophils % (auto) 1.9 %; Hematocrit (blood only) 34.4 % (37.0-47.0); Hemoglobin 10.8 g/dl (12.0-16.0); Immature Granulocytes # (auto) 0.49 K/uL (0.01-0.20); Immature Granulocytes % (auto) 4.3 %; Lymphocytes # (auto) 3.56 K/uL (1.20-3.40); Mean Corpuscular Hemoglobin 29.3 pg (25.0-34.0); Mean Corpuscular Hgb Conc 31.4 g/dL (32.0-36.0); Mean Corpuscular Volume 93.5 fL (80.0-100.0); Mean Platelet Volume 10.1 fL (9.4-12.4); Monocytes # (auto) 0.97 K/uL (0.11-0.59); Monocytes % (auto) 8.5 %; Neutrophils # (auto) 6.16 K/uL (1.40-6.50); Neutrophils % (auto) 53.7 %; Platelet Count 440 K/uL (130-400); RDW Standard Deviation 47.8 fL (36.4-46.3); Red Blood Count 3.68 M/uL (4.20-5.40); White Blood Count 11.47 K/ul (4.8-10.8)
[2024-07-31 07:51] LABS: BUN Creatinine Ratio 18.9 (10-20); Calcium 9.3 mg/dl (8.6-10.3); Creatinine Clr Calc Pharmacy 42.5 ml/min; Magnesium 1.5 mg/dl (1.7-2.4)
--- NOTE | 2024-07-31 14:36 | Hospitalist Progress Note ---
Date of Service July 31, 2024 Assessment & Plan (1) Hypotension: Plan: 74-year-old lady with PMH of chronic respiratory failure 2/2 COPD on home O2 at night (2 L), chronic systolic/diastolic HF [EF of 55 to 60% TTE 2023], HTN, GERD, T2DM on oral meds, CKD [baseline creatinine of 1.4], hypothyroidism, mood disorder, right tibial fracture, ongoing tobacco abuse, recent discontinuation of atenolol and lisinopril due to hypotension issues presented with complaint of not feeling well since last 4 days ago [employer]CTION [employer], reports occasional cough with yellow sputum, sore throat. She is being managed for the following: Possible atypical pneumonia Did not meet SIRS criteria at presentation, no sepsis POA, admitting WBC and procalcitonin elevated. Follow admitting blood culture, sent sputum culture. Continue cefepime 07/25 --> rocephin 07/26 and doxycycline 07/25. c/w lactobacillus. Minimal cough but no other symptoms of fever and or chills or any shortness of breath or wheezing Denies any respiratory symptoms and cough is minimal Will finish the course of antibiotic and the patient remains stable without any cough and/or shortness of breath No respiratory symptoms No cough and/or shortness of breath Oropharyngeal thrush: Topical Rx for oropharyngeal thrush, monitor Denies any sore throat and/or dysphagia Complicated UTI: Admitting UA suggestive of UTI, admitting urine culture positive for E. coli. Antibiotic as above. Continue ceftriaxone for now Will finish the course of ceftriaxone Denies any urinary symptoms- will be finishing course of antibiotics and Recent diarrhea: Patient reports last diarrhea 2 days ago [employer], c diff neg. Has improved per pt. Acute kidney injury over CKD stage III: Admitting creatinine of 1.81, baseline creatinine around 1.5. Admitting CTAP reviewed, no obstruction (non obstructive rt renal stone 4mm -- fu w/ URO as OP.). Status post IV fluid, creatinine resolved. Initiate home medications gradually as BP allows (likely resume lasix zan), follow renal functions daily. Creatinine remains stable and improved at 1.29 Will monitor PRP- creatinine is slightly worse Abnormal CTAP: Enlarged retroperitoneal LN approx 1 cm. F/u imaging as OP. Pt's son dino (over the phone) and pt herself were notified. Recent history of tibial plateau fracture x right and left ankle sprain Per outpatient orthopedic evaluation 06/19/2024, For RLE: patient can start to do active/active assisted ROM with her knee. PT can progress her ROM as tolerated. she can start to progress her weightbearing with her right knee starting with 25% weightbearing utilizing a walker. This can be increased weekly and can progress to full weightbearing as tolerated over the next 6 weeks. For LLE: Patient can transition out of the cam boot and into an ankle lacer. She is to have ankle lacer on during times of activity. If having a lot of pain ambulating during the day in ankle lacer, she will need to go back to the boot for a week or 2. Recommend RICE to left foot and ankle. She can work with PT to work on some strengthening and stabilizing exercises. Will continue with physical therapy- strongly advised to participate in physical therapy Likely discharge on Wednesday Follow-up with orthopedics in 1 to 2 weeks time upon discharge. Other chronic medical conditions: Continue with/resume home meds as and when able. Chronic respiratory failure secondary to COPD on home O2 at night Chronic systolic/diastolic heart failure, mild congestion on admitting x-ray, patient intravascularly dry, c/t monitor volume status. furosemide on hold due to soft BP. DM 2 on oral meds, well-controlled as of recent hemoglobin A1c of 6.25 May 2024. SSI while in hospital. hypothyroidism, euthyroid as of recent TSH from 2 months ago ongoing tobacco abuse: Nicotine patch as needed DVT prophylaxis. Heparin subcu Full code Patient's son Dino was given a phone call 07/25 and updated regarding right renal stone and retroperitoneal lymph nodes and given general updates on the patient care and discussed plan of care. He voiced understanding. Text document was generated using [employer] voice recognition software. It may contain grammatical or spelling errors. Kindly contact undersigned for clarification of any documentation item in question. Admission and Anticipated Discharge Date Admission Date: July 24, 2024 Subjective 07/28/2024 The patient was seen and examined in telemetry unit She has been complaining of bilateral leg pain and back pain She refused to have physical therapy this morning Denies any other acute symptoms and denies any cardiac symptoms 07/29/2024 The patient was seen and examined in telemetry unit She remains stable but has not had any physical therapy yet Her pain in the legs is controlled 07/30/2024 The patient was seen and examined in medical floor She has been much better today Complains pain in the right renal angle area Has not had any more physical therapy Strongly advised to participate in physical therapy before discharge tomorrow 07/31/2024 The patient was seen and examined in telemetry unit She has had physical therapy today and awaiting placement Denies any significant symptoms Review of Systems Review of Systems: All systems reviewed and are unremarkable except as noted below Physical Exam Physical Exam: Lying in bed with nonspecific complaints Constitutional: well developed, well nourished and + ill appearing Eyes: PERRL, conjunctivae normal, anicteric sclerae ENMT: external ear and nose normal, oropharynx normal Neck: trachea midline, no thyromegaly Respiratory: no respiratory distress Auscultation: + lungs not clear to auscultation Cardiovascular: Rate/Rhythm: regular rate and regular rhythm; not tachycardic Heart Sounds: normal S1 and normal S2; no murmur Extremities: no edema Gastrointestinal (Abdomen): Inspection/Auscultation: normal bowel sounds; abdomen not distended Percussion/Palpation: abdomen soft; abdomen nontender Neurologic: normal touch/pain/proprioception and moves all extremities; no focal motor deficits Lymphatic: no cervical or axillary lymphadenopathy Results & Data Results & Data Vital Signs (Past 12 Hours) Vital Signs Temp Pulse Resp BP Pulse Ox O2 Del Method 07/31/24 07:50 36.4 C L 56 L 16 129/75 94 Room Air Laboratory Results Short CBC 07/31/24 Range/Units 06:21 WBC 11.47 H (4.8-10.8) K/ul Hgb 10.8 L (12.0-16.0) g/dl Hct 34.4 L (37.0-47.0) % Plt Count 440 H (130-400) K/uL BMP 07/31/24 06:21 Sodium 142 Potassium 4.0 Chloride 110 H Carbon Dioxide 25 BUN 25 H Creatinine 1.32 H Glucose 88 Calcium 9.3 Medications Administered Current Inpatient Medications Acetaminophen (Acetaminophen 325 Mg Tab) 650 mg PO QID PRN PRN Reason: pain/fever Stop: 08/23/24 20:26 Albuterol (Albut/Ipratrop 3mg/0.5mg Neb 3 Ml Vial) 3 ml NEB Q2H PRN; Protocol PRN Reason: sob wheeze Stop: 08/24/24 03:40 Alendronate Sodium (Alendronate Sodium 70 Mg Tab) 70 mg PO Tu@0730 [facility] Stop: 08/24/24 07:29 Last Admin: 07/25/24 07:30 Dose: 70 mg Aspirin (Aspirin 81 Mg Ectab) 81 mg PO QAM [facility]INA Stop: 08/24/24 08:59 Last Admin: 07/31/24 08:30 Dose: 81 mg Atorvastatin Calcium (Atorvastatin 40 Mg Tab) 40 mg PO HS [facility]STINA Stop: 08/24/24 20:59 Last Admin: 07/30/24 20:03 Dose: 40 mg Azelastine HCl (Azelastine Hcl 0.1% Nasal 200 Sprays/27,400 Mcg Btl) 2 sprays NA BID [facility]STINA Stop: 08/24/24 08:59 Last Admin: 07/31/24 08:29 Dose: 2 sprays Benzonatate (Benzonatate 100 Mg Capsule) 100 mg PO TID PRN PRN Reason: Cough Stop: 08/24/24 03:38 Last Admin: 07/26/24 11:35 Dose: 100 mg Calcium Carbonate (Calcium Carbonate 500 Mg Chewable Tab) 500 mg PO Q4H PRN PRN Reason: Gi Upset Stop: 08/23/24 21:57 Cetirizine HCl (Cetirizine Hcl 10 Mg Tablet) 10 mg PO PM CH[facility]STINA Stop: 08/24/24 20:59 Last Admin: 07/30/24 20:03 Dose: 10 mg Clotrimazole (Clotrimazole 10 Mg Melony) 10 mg BUCCAL [id number] [facility]ISTINA Stop: 08/03/24 22:59 Last Admin: 07/31/24 12:33 Dose: 10 mg Dextrose (Dextrose 50% 50 Ml Syringe) 25 - 50 ml IV UD PRN; Protocol PRN Reason: Hypoglycemia Protocol Stop: 08/23/24 21:31 Ergocalciferol (Ergocalciferol 1250 Mcg (50,000 Units) Cap) 1,250 mcg PO Cooney@0900 [facility] Stop: 08/29/24 08:59 Last Admin: 07/30/24 08:39 Dose: 1,250 mcg Fluticasone Furoate (Fluticasone Furoate 200mcg 14 Puffs/Inhaler) 1 puffs INH DAILY [facility]STINA Stop: 08/24/24 08:59 Last Admin: 07/31/24 08:28 Dose: 1 puffs Gabapentin (Gabapentin 100 Mg Cap) 200 mg PO TID [facility]STINA Stop: 08/24/24 03:44 Last Admin: 07/31/24 14:15 Dose: 200 mg Glucagon (Glucagon For Inj 1 Mg Vial) 1 mg SQ UD PRN; Protocol PRN Reason: Hypoglycemia Protocol Stop: 08/23/24 21:31 Glucose (Glucose 40% Gel 15 Gm Tube) 15 - 30 gm PO UD PRN; Protocol PRN Reason: Hypoglycemia Protocol Stop: 08/23/24 21:31 Glucose (Glucose 10 Tab/Tube) 4 - 8 tab PO UD PRN; Protocol PRN Reason: Hypoglycemia Protocol Stop: 08/23/24 21:31 Heparin Sodium (Porcine) (Heparin Sod 5,000 Unit/0.5 Ml Vial) 5,000 units SQ Q8H [facility]STINA Stop: 08/23/24 21:59 Last Admin: 07/31/24 14:15 Dose: 5,000 units Ceftriaxone Sodium (Rocephin) 2,000 mg in 50 mls @ 100 mls/hr IV Q24H [facility]STINA Stop: 08/05/24 03:59 Last Infusion: 07/31/24 05:24 Dose: Infused Insulin Aspart (Insulin Aspart Per Unit Charge) 0 units SC ACHS [facility]RISTINA Stop: 08/23/24 21:31 Last Admin: 07/31/24 12:37 Dose: 3 units Lactobacillus Acidophilus (Advanced Probiotic 625 Mg Capsule) 1,250 mg PO DAILY CH[facility]STINA Stop: 08/24/24 09:14 Last Admin: 07/31/24 08:30 Dose: 1,250 mg Levalbuterol HCl (Levalbuterol 1.25 Mg/3 Ml Neb) 1.25 mg INH QID PRN PRN Reason: Shortness Of Breath Or Wheezing Stop: 08/23/24 21:45 Levothyroxine Sodium (Levothyroxine Sodium 75 Mcg Tablet) 75 mcg PO DAILYBB [facility] Stop: 08/24/24 06:29 Last Admin: 07/31/24 04:50 Dose: 75 mcg Miscellaneous (Carbohydrates For Hypoglycemia ) 15 - 30 gm PO UD PRN PRN Reason: Hypoglycemia Protocol Stop: 08/23/24 21:31 Montelukast Sodium (Montelukast Sodium 10 Mg Tablet) 10 mg PO HS [facility] Stop: 08/24/24 20:59 Last Admin: 07/30/24 20:04 Dose: 10 mg Nystatin (Nystatin Powder 15gm Btl) 1 appln EXT BID [facility] Stop: 08/23/24 23:49 Last Admin: 07/31/24 08:31 Dose: 1 appln Oxycodone HCl (Oxycodone Hcl Ir 5 Mg Tab (Immediate Release)) 5 mg PO Q4H PRN PRN Reason: Pain Stop: 08/07/24 20:26 Last Admin: 07/30/24 20:01 Dose: 5 mg Pantoprazole Sodium (Pantoprazole 40 Mg Tab) 40 mg PO QAM [facility] Stop: 08/24/24 08:59 Last Admin: 07/31/24 08:30 Dose: 40 mg Paroxetine HCl (Paroxetine Hcl 20 Mg Tab) 40 mg PO QAM [facility] Stop: 08/24/24 08:59 Last Admin: 07/31/24 08:30 Dose: 40 mg Phenol (Chloraseptic (Phenol) 1.4% Soln 180 Ml Btl) 1 sprays MT Q2H PRN PRN Reason: oral cavity/oopharyngeal pain Stop: 08/23/24 20:41 Last Admin: 07/30/24 20:04 Dose: 1 sprays Ropinirole HCl (Ropinirole Hcl 0.25 Mg Tablet) 0.25 mg PO [facility] Stop: 08/23/24 21:59 Last Admin: 07/30/24 20:04 Dose: 0.25 mg Umeclidinium/Vilanterol (Umeclidinium/Vilanterol 62.5/25mcg 7 Puffs/Inhaler) 1 puffs INH DAILY [facility] Stop: 08/24/24 08:59 Last Admin: 07/31/24 08:29 Dose: 1 puffs
[2024-07-31 15:56] VITALS: RESP 18; TEMP 97.7; O2SAT 95
[2024-07-31 16:44] VITALS: BP 120/72; PULSE 71
--- NOTE | 2024-08-01 08:31 | Discharge Summary ---
Date of Service August 01, 2024 Admission HPI Per Admitting Provider History obtained from patient and records. Medical history is significant for chronic respiratory failure secondary to COPD on home O2 at night, chronic systolic/diastolic heart failure (EF of 55-60% TTE 2023), HTN, GERD, DM 2 on oral meds, CRI baseline creatinine 1.4, hypothyroidism, mood disorder, history of right tibial fracture, ongoing tobacco abuse. Last confinement May, for ambulatory dysfunction. Noted to be hypotensive during confinement. Atenolol and lisinopril discontinued on discharge. Patient discharged to [facility] where she stayed for a month before being discharged home last month. Patient not feeling well the last 4 days. Dry cough symptoms without unusual chest pain or SOB. Sore throat which feels like thrush as per patient. Body aches. Watery loose stools without abdominal pain. Achy right flank pain. No unusual RLE pain or swelling as per patient. Patient not sure about sick contacts. SBP 90s upon arrival at the ER. Zosyn administered at the ER. Medical Historyas above Surgical History : BTL, sinus surgery, nasal septum repair, wrist surgery cataract surgery Family History : Heart disease Personal/Social history : Half pack daily, no chronic EtOH intake, disabled Admission Exam Per Admitting Provider Physical Exam: GENERAL: Slightly uncomfortable, dysphonic, no respiratory distress SKIN: Pallor, warm HEENT: Pale palpebral conjunctivae, no ptosis, dry buccal mucosa, pharyngeal congestion with scant white plaques NECK : Supple, no tenderness CHEST : Decreased breath sounds, occasional expiratory wheezes, no tenderness HEART : RRR, no obvious murmurs ABDOMEN: Some distention, nontender EXTREMITIES : RLE splint, no other conspicuous deformities noted NEUROLOGIC : Coherent, no facial asymmetry, slightly hard of hearing, no other gross focality Principal Diagnosis Acute hypotensionresolved, possible pneumonia, Complicated UTI, CKD recent history of tibial plateau fracture, chronic combined systolic and diastolic heart failure, COPD Discharge Exam Lying in bed with nonspecific complaints Constitutional well developed, well nourished and + ill appearing Eyes PERRL, conjunctivae normal, anicteric sclerae ENMT external ear and nose normal, oropharynx normal Neck trachea midline, no thyromegaly Respiratory no respiratory distress Auscultation: + lungs not clear to auscultation Cardiovascular Rate/Rhythm: regular rate and regular rhythm; not tachycardic Heart Sounds: normal S1 and normal S2; no murmur Extremities: no edema Gastrointestinal (Abdomen) Inspection/Auscultation: normal bowel sounds; abdomen not distended Percussion/Palpation: abdomen soft; abdomen nontender Neurologic normal touch/pain/proprioception and moves all extremities; no focal motor deficits Lymphatic no cervical or axillary lymphadenopathy Discharge Data Allergies Allergy/AdvReac Type Severity Reaction Status Date / Time adhesive Allergy Intermediate RASH Verified 07/24/24 20:45 Quinolones Allergy Intermediate LEVAQUIN Verified 07/24/24 20:45 codeine AdvReac Severe "BECAME Verified 07/24/24 20:45 ADDICTED TO MED" PREFERS NOT TO TAKE IF POSSIBLE. morphine AdvReac Severe ADDICTION-PREFERS Verified 07/24/24 20:45 NOT TO TAKE IF POSSIBLE. linagliptin AdvReac Mild hypoglycemi Verified 07/24/24 20:45 a Consultations 07/24/24 19:18 ED Decision to Admit Stat Ordered Studies 07/24/24 17:34 CT abd pelvis wo con Stat Hospital Course (1) Hypotension: 74-year-old lady with PMH of chronic respiratory failure 2/2 COPD on home O2 at night (2 L), chronic systolic/diastolic HF [EF of 55 to 60% TTE 2023], HTN, GERD, T2DM on oral meds, CKD [baseline creatinine of 1.4], hypothyroidism, mood disorder, right tibial fracture, ongoing tobacco abuse, recent discontinuation of atenolol and lisinopril due to hypotension issues presented with complaint of not feeling well since last 4 days ago [employer], reports occasional cough with yellow sputum, sore throat. She is being managed for the following: Possible atypical pneumonia Did not meet SIRS criteria at presentation, no sepsis POA, admitting WBC and procalcitonin elevated. Follow admitting blood culture, sent sputum culture. Continue cefepime 07/25 --> rocephin 07/26 and doxycycline 07/25. c/w lactobacillus. Minimal cough but no other symptoms of fever and or chills or any shortness of breath or wheezing Denies any respiratory symptoms and cough is minimal Will finish the course of antibiotic and the patient remains stable without any cough and/or shortness of breath No respiratory symptoms No cough and/or shortness of breath Oropharyngeal thrush: Topical Rx for oropharyngeal thrush, monitor Denies any sore throat and/or dysphagia Complicated UTI: Admitting UA suggestive of UTI, admitting urine culture positive for E. coli. Antibiotic as above. Continue ceftriaxone for now Will finish the course of ceftriaxone Denies any urinary symptoms- will be finishing course of antibiotics and Recent diarrhea: Patient reports last diarrhea 2 days ago [employer], c diff neg. Has improved per pt. Acute kidney injury over CKD stage III: Admitting creatinine of 1.81, baseline creatinine around 1.5. Admitting CTAP reviewed, no obstruction (non obstructive rt renal stone 4mm -- fu w/ URO as OP.). Status post IV fluid, creatinine resolved. Initiate home medications gradually as BP allows (likely resume lasix zan), follow renal functions daily. Creatinine remains stable and improved at 1.29 Will monitor PRP- creatinine is slightly worse Abnormal CTAP: Enlarged retroperitoneal LN approx 1 cm. F/u imaging as OP. Pt's son dino (over the phone) and pt herself were notified. Recent history of tibial plateau fracture x right and left ankle sprain Per outpatient orthopedic evaluation 06/19/2024, For RLE: patient can start to do active/active assisted ROM with her knee. PT can progress her ROM as tolerated. she can start to progress her weightbearing with her right knee starting with 25% weightbearing utilizing a walker. This can be increased weekly and can progress to full weightbearing as tolerated over the next 6 weeks. For LLE: Patient can transition out of the cam boot and into an ankle lacer. She is to have ankle lacer on during times of activity. If having a lot of pain ambulating during the day in ankle lacer, she will need to go back to the boot for a week or 2. Recommend RICE to left foot and ankle. She can work with PT to work on some strengthening and stabilizing exercises. Will continue with physical therapy- strongly advised to participate in physical therapy Likely discharge on Wednesday Follow-up with orthopedics in 1 to 2 weeks time upon discharge. Other chronic medical conditions: Continue with/resume home meds as and when able. Chronic respiratory failure secondary to COPD on home O2 at night Chronic systolic/diastolic heart failure, mild congestion on admitting x-ray, patient intravascularly dry, c/t monitor volume status. furosemide on hold due to soft BP. DM 2 on oral meds, well-controlled as of recent hemoglobin A1c of 6.25 May 2024. SSI while in hospital. hypothyroidism, euthyroid as of recent TSH from 2 months ago ongoing tobacco abuse: Nicotine patch as needed DVT prophylaxis. Heparin subcu Full code Patient's son Dino was given a phone call 07/25 and updated regarding right renal stone and retroperitoneal lymph nodes and given general updates on the patient care and discussed plan of care. He voiced understanding. Text document was generated using [employer] voice recognition software. It may contain grammatical or spelling errors. Kindly contact undersigned for clarification of any documentation item in question. Total Time Total Time Spent Total Time Spent (In Minutes): 40 minutes Discharge Plan Discharge Items Patient Disposition: Home - Home Health Services Reason For Visit: HYPOTENSION Discharge Diagnosis: Acute hypotensionresolved, possible pneumonia, Complicated UTI, CKD recent history of tibial plateau fracture, chronic combined systolic and diastolic heart failure, COPD Condition on Discharge: Fair Activity: Resume your previous activity Non-emergency contact: Primary Care Provider Call non-emergency contact if: you have any medication questions and your symptoms worsen Follow-up/Referrals: Franca Lilly MD [Primary Care Provider] - Diet: Carb Consistent or DM2 Addtl Attending Provider Instructions: Please take precautions to avoid falls Take your medications as advised- try to avoid narcotic pain medications and use less if needed to prevent confusion, constipation, addiction Please keep appointments with the healthcare providers Pending Studies at Discharge: No Stand-Alone Forms: [facility], Pain - Opioid Pain Management, Smoking Cessation Medications and DC Order Prescriptions: New oxycodone 5 mg tablet 5 mg PO Q6H PRN (Reason: pain) Qty: 20 0RF Continued cholecalciferol (vitamin D3) 50,000 unit Tablet 50,000 unit PO WK Rx Instructions: TAKE THIS MED EVERY WEDNESDAY. potassium chloride 10 mEq tablet,ER particles/crystals 10 meq PO DAILY Hold Instructions: Resume on 06/06/24. Hold until lasix is on hold . Rx Instructions: patient unsure if this is still on hold. No recent fills since March furosemide 20 mg tablet 20 mg PO DAILY Hold Instructions: Resume on 06/01/24. Hold until labs/further eval by PCP within a week time Rx Instructions: Patient confirmed still on hold. montelukast 10 mg tablet 10 mg PO HS levothyroxine 75 mcg Tablet 75 mcg PO QAM gabapentin 300 mg Capsule 300 mg PO USEASDIRECTD Rx Instructions: 1 tab AM; 1 tab Midday; 2 tabs PM ropinirole 0.25 mg Tablet 0.25 mg PO HS Rx Instructions: TAKE ONE TABLET BY MOUTH EVERY DAY AT BEDTIME. ipratropium bromide 0.02 % Solution 2.5 ml continuous nebulization Q4H PRN (Reason: Shortness Of Breath Or Wheezing) clotrimazole 10 mg Melony 10 mg Mucous Membrane 5XD PRN (Reason: THRUSH) azelastine 137 mcg (0.1 %) aerosol,spray 2 spray Intranasal BID nitroglycerin [Nitrostat] 0.4 mg Tablet, Sublingual 0.4 mg Sublingual UD PRN (Reason: Chest Pain) Rx Instructions: NEEDED FOR CHEST PAIN : ONE TABLET UNDER THE TONGUE EVERY 5 MINUTES UP TO 3 DOSES. pantoprazole 40 mg Tablet,Delayed Release (Dr/Ec) 40 mg PO QAM paroxetine HCl 40 mg tablet 40 mg PO QAM levalbuterol HCl 1.25 mg/3 mL Solution For Nebulization 1.25 mg INHALATION QID PRN (Reason: Shortness Of Breath Or Wheezing) Rx Instructions: Patient unable to confirm if she still uses this medication or not. levocetirizine 5 mg Tablet 5 mg PO PM calcium carbonate 500 mg calcium (1,250 mg) Tablet,Chewable 500 mg PO 5XD PRN (Reason: Gi Upset) guaifenesin [Mucinex] 600 mg Tablet Extended Release 12hr 600 mg PO BID PRN (Reason: Cough) aspirin 81 mg Capsule 81 mg PO QAM atorvastatin 40 mg tablet 40 mg PO HS alendronate 70 mg tablet 70 mg PO WK Rx Instructions: TAKE 1 TABLET BY MOUTH ONCE A WEEK WITH 8 OZ WATER 30 MIN BEFORE 1ST MEAL OF THE DAY, REMAIN UPRIGHT FOR 30 MIN AFTER. albuterol sulfate 90 mcg/actuation HFA aerosol inhaler 2 puff INHALATION QID PRN (Reason: SOB/Wheezing) Rx Instructions: INHALE TWO PUFFS BY MOUTH FOUR TIMES A DAY PRN FOR SOB/WHEEZING. Tradjenta 5 mg tablet 5 mg PO QAM Trelegy Ellipta 200-62.5-25 mcg blister with device 1 inh INHALATION DAILY Rx Instructions: Inhale 1 puff by mouth in the morning. lidocaine [Lidoderm] 5 % adhesive patch,medicated 1 patch topical DAILY PRN (Reason: Pain) Rx Instructions: Leave on most painful area for up to 12 hrs. nystatin 100,000 unit/gram cream 1 applic TOPICAL BID Rx Instructions: for 20 days budesonide 0.5 mg/2 mL suspension for nebulization 0.5 mg inhalation QID PRN (Reason: Shortness Of Breath Or Wheezing) Discharge Orders: Discharge Order (Routine); Ordered 07/31/24 Ordered By: Krish Moseley/Other Patient Handouts: DVT Post Op Prevention Admission Data Admit Date/Time: 07/24/24 19:43 Attending Provider: Krish Nichols Admit Provider: Jose Reid Primary Care Provider: Franca Lilly Other Providers: Titi Hartman; Jose Reid; Francisco Nguyễn,Isela Other Interventions: Discharge Summary Assessment (RN) Last Done: 07/31/24 16:43
== END 2024-07-31 17:20 | disposition home health service (06) | DRG 194 ==
LOC: ED 16:25 → 4W 19:43 → SUATTDRO 19:43 → 4W 20:23 → 3N 07-29 23:54